=== PATIENT | male | born 1960 | race Caucasian/White ===

== ENCOUNTER 2016-10-30 23:48 | Emergency (ER) | payer BC, OTHER ==
[~2016-10-30] VITALS: Ht 182.9 cm; Wt 222.0 kg
[~2016-10-30 23:48] MED LIST: ALBUAER19 INH; ASPEC81 PO; BENA20TA14 PO; FLUT0.0529; FRS/40 PO; MELO15TA3 PO; POTA-335 PO
[2016-10-30 23:55] VITALS: TEMP 36.5; Ht 182.9 cm; Wt 222.0 kg
[2016-10-31] MEDS ORDERED: LIDO/EPINEPHRINE/SOD BICARB 20 ML VIAL INFIL ONE (00:04)
--- NOTE | 2016-10-31 00:10 | EMERGENCY ROOM VISIT NOTE ---
ED Visit Note First contact with patient: 23:59 CHIEF COMPLAINT: Right lower leg laceration HISTORY OF PRESENT ILLNESS: This 56-year-old patient presents to the emergency department with after cutting the right lower leg on a cat toy just prior to arrival. The bleeding has not stopped. Denies weakness or numbness of the extremity. patient has full range of motion of the extremity The patient rates the pain as mild and 2/10. The patient denies any other injuries. The patient' s tetanus shot is not up to date. REVIEW OF SYSTEMS: A 6 system review of systems was completed with positives and pertinent negatives listed in the HPI. ALLERGIES: None MEDICATIONS: Coumadin, reviewed PMH: Atrial fibrillation, diabetes, hypertension, hyperlipidemia SOCIAL HISTORY: No drug use PHYSICAL EXAM: Vital Signs: Reviewed Nurse's notes, vital signs stable. GENERAL : Pleasant male, in no acute distress, well developed, well nourished. SKIN: There is a 3 cm long laceration on the right lower leg. The edges gape apart with traction. There is no foreign material in the wound and it looks clean. There is bleeding. No deep structures such as tendons, bones, or significant blood vessels are seen in the base of the wound. Extension and flexion of the extremity is full and strong. Full range of motion of the extremity. Capillary refill less than 2 seconds. Normal sensation to light and sharp touch. EMERGENCY DEPARTMENT COURSE: I examined the patient. Using sterile technique the wound was cleansed with Betadine. 3 ml of 1% buffered lidocaine with epi was used to anesthetize the patient. The area was sterilely draped. Once the patient was anesthetized, the wound was copiously irrigated under pressure with sterile saline. The wound was explored and there were no deep structures injured. The laceration was repaired using 5 simple interrupted 4-0 nylon sutures. The patient tolerated the procedure well. Hemostasis was achieved. The area was cleaned with sterile saline and dressed with bacitracin ointment and bandage. The patient was given a tetanus booster. The patient was discharged home in good condition. As patient was cut by a cat toy he was placed on antibiotics Differential diagnosis includes laceration, tendon injury, vascular injury and other etiologies were considered. DIAGNOSIS: Right lower leg laceration DISCHARGE INSTRUCTIONS & TREATMENT: Keep wound clean and dry. Do not allow any crusting or dried blood to accumulate on sutures. If this occurs, use a 1:1 solution of hydrogen peroxide/water on a Q-tip to clean the wound. Use an antibiotic ointment for 3-4 days, then let wound dry. Suture removal in 10-12 days. Return sooner for any signs of infection (increasing redness, swelling, drainage). Ice and elevate for swelling and pain. Keep covered when in sun until sutures removed then SPF 50 or higher for one year. Vitamin E oil if desired two weeks after suture removal for reduction of scar. Wear pat wrap for compression over bandage with bacitracin and stay nonweightbearing on this leg until laceration has healed. Amoxicillin Clavulanate (Augmentin) 875mg: Take one pill twice daily for 10 days for your infection. All antibiotics can cause diarrhea. If this occurs and you feel worse or it does not resolve in 1-2 days follow up with your doctor or return to the Emergency Department as this could be signs of serious underlying problems. Any medication can cause an allergic reaction, stop the pills immediately and return to the ER for rash, hives, breathing difficulties, or swelling. Acetaminophen(Tylenol) may be used for fever or pain. Use 1000mg every six hours as needed. Avoid using more than 3000mg in a 24 hour period. Rest and drink plenty of fluids. Continue current medications. Return to the ER for severe pain, persistent fevers, spreading redness, or any worsening of your condition. Follow up with your primary physician within 2-3 days for a recheck of the current condition. Current/Historical Medications Scheduled Albuterol Inhaler (Ventolin Inhaler), 2 PUFFS INH PRN Amoxicillin & Pot Clavulanate (Augmentin 875-125 mg), 1 TAB PO BID Aspirin Enteric Coated (Ecotrin Or Generic *), 81 MG PO DAILY Benazepril (Lotensin), 40 MG PO QAM Furosemide (Lasix), 40 MG PO QAM Furosemide (Lasix), 20 MG PO NOON Meloxicam (Mobic), 15 MG PO QAM Potassium Chloride (Micro-K Ext Rel), 20 MEQ PO DAILY Miscellaneous Medications Fluticasone Propionate (Nasal) (Flonase) Allergies Coded Allergies: No Known Allergies (Verified Allergy, Mild, 10/24/07) Vital Signs Date Time Temp Pulse Resp B/P Pulse Ox O2 Delivery O2 Flow Rate FiO2 10/30/16 23:55 36.5 97 22 141/82 91 Room Air Medications Administered Medications (Trade) Dose Ordered Sig/Margo Route Start Time Stop Time Status Last Admin Dose Admin Lidocaine/ Epinephrine (Buffered Xylocaine/ Epinephrine 1% Inj) 20 ml STK-MED ONCE INFIL 10/31/16 00:04 10/31/16 00:07 DC 10/31/16 00:15 20 ML Diphtheria/ Pertussis/Tetanus Vacc (Adacel Inj) 0.5 ml ONCE ONCE IM. 10/31/16 00:15 10/31/16 00:16 DC 10/31/16 00:16 0.5 ML Amoxicillin/ Clavulanate Potassium (Augmentin 875MG Home Pack) 1 homepack UD ONCE PO 10/31/16 00:15 10/31/16 00:16 DC 10/31/16 00:14 1 HOMEPACK Departure Information Prescriptions Amoxicillin & Pot Clavulanate (Augmentin 875-125 mg) 1 Tab Tab 1 TAB PO BID for 9 Days, #18 TAB Prov: Tari Garsia ., AP 10/31/16 Referrals Jamey Koch M.D. (PCP) Patient Instructions [facility]
[2016-10-31] MEDS ORDERED: DIPHTHERIA/TETANUS/PERTUSSIS 0.5 ML SYR/VIAL IM. ONE (00:15)
[2016-10-31] MEDS ORDERED: AMOXICIL/CLAVU 875MG HOME PACK PO ONE (00:15)
[2016-10-31] MEDS ORDERED: AMOX875T PO (00:24)
[2016-10-31] MEDS ORDERED: ASPI81TA28 PO (00:27)
[2016-10-31] MEDS ORDERED: POTA10CA28 PO (00:28)
[2016-10-31] MEDS ORDERED: FLUT0.15 NAE (00:29)
[2016-10-31] MEDS ORDERED: MELO7.5T5 PO (00:29)
[2016-10-31] MEDS ORDERED: VNTHFA/IN INH (00:30)
[2016-10-31 00:48] VITALS: BP 127/78; PULSE 97; O2SAT 92
== END 2016-10-31 00:48 | disposition home or self-care (01) ==
LOC: C.EDB 23:49 → C.EDA 10-31 00:48
DX: S81.811A Laceration without foreign body, right lower leg, initial encounter (principal); W45.8XXA Other foreign body or object entering through skin, initial encounter; Z23 Encounter for immunization; I48.91 Unspecified atrial fibrillation; I10 Essential (primary) hypertension; E11.9 Type 2 diabetes mellitus without complications; E78.5 Hyperlipidemia, unspecified; Z79.82 Long term (current) use of aspirin; Z79.01 Long term (current) use of 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s; Z79.899 Other long term (current) drug therapy

== ENCOUNTER → 2017-10-16 | Day surgery (SDC) | payer OTHER ==
[2017-10-10 15:53] VITALS: Ht 182.9 cm; Wt 222.7 kg
--- NOTE | 2017-10-15 09:25 | History and Physical ---
History & Physical Date Oct 15, 2017. Chief Complaint Patient presents as a severe obesity 57year-old white male with complaints of ongoing pain attributed to his right hand he has documented carpal tunnel syndrome with positive EMG findings nonresponsive to conservative History of Present Illness The patient is a 57 year old male with complaints of carpal tunnel syndrome the documented EMG right upper extremity nonresponsive to conservative therapy including injections and bracing Additional History Hepatic Disease: No Endocrine Disorder: Yes Kidney Disease: No Hypertension: Yes Heart Disease: No Bleeding Tendencies: No Infectious Diseases: No Allergies Coded Allergies: No Known Allergies (Verified , 10/10/17) Home Medications Scheduled Aspirin (Aspirin Ec), 81 MG PO QAM Atorvastatin (Lipitor), 20 MG PO HS Benazepril (Lotensin), 40 MG PO QAM Furosemide (Lasix), 40 MG PO QAM Home O2 Therapy (Oxygen), 1 LITER NA HS Metoprolol Tartrate (Lopressor) (Lopressor), 50 MG PO QAM Omeprazole (Prilosec), 40 MG PO QAM Tramadol (Ultram), 100 MG PO BID Warfarin Sod (Jantoven), 7.5 MG PO 4XWK Warfarin Sodium (Warfarin Sodium), 0.5 TAB PO 3XWK Scheduled PRN Albuterol Hfa (Ventolin Hfa), 2 PUFFS INH DIRECTED PRN for SOB/Wheezing Physical Examination Skin: warm/dry, no rash Eyes: normal inspection, EOMI, sclerae normal ENT: normal ENT inspection, pharynx normal Head: normocephalic, atraumatic Neck: supple, no adenopathy, trachea midline Respiratory/Chest: lungs clear, normal breath sounds, no respiratory distress Cardiovascular: regular rate, rhythm, no edema, no murmur Abdomen / GI: normal bowel sounds, non tender Back: normal inspection Extremities: normal inspection, normal range of motion Neurologic/Psych: no motor/sensory deficits, alert, normal reflexes, oriented x 3 Diagnosis Patient presents as a 57-year-old white male severe carpal tunnel syndrome documented EMG Nourse wants to conservative therapy including bracing and injections patient's history of hypertension hypercholesterolemia irregular heart sleep apnea on CPAP machine as well as a history of diabetes Plan of Treatment Carpal tunnel decompression postoperative pain management antibiotics
[~2017-10-16] VITALS: Ht 182.9 cm; Wt 222.7 kg
[~2017-10-16] MED LIST changes: -ALBUAER19 INH; -ASPEC81 PO; +ASPI81TA28 PO; +ATOR-22 PO; +ATROPINE SULFATE 0.1 MG/ML 5ML SYR IV PRN; +BUPIVACAINE 0.5 % 5 MG/1 ML MPF 30ML VIAL ONE; +BUPIVACAINE/EPINEPHRINE 0.5% MPF 1:200,000 30 ML VIAL ONE; +DEXAMETHASONE SOD INJ 4 MG/ML VIAL ONE; +EpHEDrine SULFATE INJ 50 MG/ML AMP IV PRN; +FENTANYL CITRATE INJ 50 MCG/1 ML 2 ML VIAL IV PRN; +FENTANYL CITRATE INJ 50 MCG/1 ML 2 ML VIAL ONE; -FLUT0.0529; +HYDR-5688 PO; +HYDROCODONE/ACETAMIN 5/325MG TAB PO PRN; +KETAMINE HCL INJ 50 MG/ML 10 ML VIAL ONE; +LACTATED RINGER'S 1000ML 1,000 ML IV SCH; +LIDOCAINE HCL 2% 2 ML VIAL (20MG/ML) ONE; +LIDOCAINE HCL 2% LOCAL 50ML VIAL ONE; -MELO15TA3 PO; +METO50TA16 PO; +MIDAZOLAM HCL 1 MG/ML 2ML VIAL ONE; +ONDANSETRON INJ 2 MG/ML 2 ML VIAL IV PRN; +ONDANSETRON INJ 2 MG/ML 2 ML VIAL ONE; +OXGN; -POTA-335 PO; +PRLSR20 PO; +PROPOFOL IV EMULSION 10 MG/ML 20 ML VIAL IV ONE; +SODIUM CHLORIDE 0.9% 1000ML 1,000 ML IV SCH; +SUCCINYLCHOLINE CHLORIDE 20 MG/ML 10 ML VIAL IV ONE; +TRAM-10 PO; +VNTHFA/IN INH; +WARF-284 PO; +WARF7.5T4 PO
[2017-10-16 12:19] VITALS: BP 157/98; PULSE 109; TEMP 36.8; O2SAT 93
[2017-10-16 12:37] LABS: INR 1.1 (0.9-1.1); PTT PATIENT 25.7 SECONDS (21.0-31.0)
--- NOTE | 2017-10-16 12:59 | History & Physical Bridge Note ---
H&P Re-Evaluation Bridge Note: I have examined the patient, reviewed the History & Physical and in the interval since the performance of the History & Physical I have noted the following changes of clinical significance: No changes noted
--- NOTE | 2017-10-16 13:31 | Discharge Instructions ---
Discharge Instructions Date of Service Oct 16, 2017. Visit Reason for Visit: Right Wrist Carpal Tunnel Syndrome Discharge Discharge Diagnosis / Problem: right carpal tunnel release Discharge Goals Goal(s): Decrease discomfort, Improve function, Increase independence Activity Recommendations Activity Limitations: as noted below Lifting Limitations: no more than 5 pounds Anesthesia . Post Anesthesia Instructions: If you have had General Anesthesia or IV Sedation: * Do not drive today. * Resume driving when surgeon permits. * Do not make important decisions or sign legal documents today. * Call surgeon for: 1. Temperature elevations greater than 101 degrees F. 2. Uncontrollable pain. 3. Excessive bleeding. 4. Persistent nausea and vomiting. 5. Medication intolerance (nausea, vomiting or rash). * For nausea and vomiting use only clear liquids such as: tea, soda, bouillon until nausea subsides, then gradually increase diet as tolerated. * If you have any concerns or questions, call your surgeon's office. If physician is unavailable and it is an emergency, call 911 or go to the nearest emergency room. . Instructions / Follow-Up Instructions / Follow-Up The following are instructions to follow after minor hand surgery. ACTIVITY RECOMMENDATIONS: * Minimize activity until your first visit after surgery. * Return to activity is individualized. Most patients are able to return to everyday activities within 2 weeks. * DRIVING: Driving may be resumed when you feel you have adequate pain control and use of the hand. * BATHING: You may shower or sponge-bathe immediately after surgery. The dressing will need to be covered with a plastic bag or plastic wrap. Keep dressing covered and dry while showering. * Wash with regular soap and water. * Do not bathe (submerge the incision), soak, swim or use a hot tub until the incision is completely healed over with normal skin and the doctor has given the OK to proceed. * There is no need to apply any ointments, powders or salves to your incision. * Do not apply alcohol or hydrogen peroxide directly to the incision. Diluted peroxide (50:50 mixture with sterile saline) may be used to clean dried blood from around the incision area. WORK/SCHOOL: * You may return to sedentary work or school when you are feeling comfortable. This is usually 3-7 days after surgery. * Expect increased discomfort with increased activity. Continue to elevate and ice the hand as much as possible. DIET: * Resume previous diet. MEDICATIONS: * You will have a prescription for pain medication after surgery. Use the pain pills for severe pain and the anti-inflammatory for less severe pain. * Once the pain pills have run out, try to use the anti-inflammatory. * The pain medication may cause nausea, constipation and sleepiness. You should see how they affect you before driving or similar activity. * Take a stool softener like Colace or a stimulant like Senokot to prevent constipation. SPECIAL CARE INSTRUCTIONS: ICE: * Do not apply ice directly to the skin. * Use a thin dressing or stockinet between the skin and ice bag. The dressing in place after surgery will suffice. * Apply ice for 20-30 minutes and repeat every 2-4 hours. This is especially important for the first 3-7 days after surgery. * Once the pain improves, use ice as needed. ELEVATION: * Keep your hand elevated at or above the level of your heart as much as possible. * Expect some increased discomfort and swelling if you allow your hand to hang down for any length of time. DRESSING: * Always wash your hands prior to touching the incision area. * Once the stitches are removed, you may leave the wound open to air or cover with a thin bandage. * There is no need to apply any ointments, powders or salves to your incision. * Expect some bloody drainage for the first few days after surgery. * The initial dressing after surgery may become soaked with blood or fluid which is normal. You may reinforce your dressing with clean, dry gauze as needed. PROBLEMS/QUESTIONS: * If you have any problems such as severe pain, numbness, tingling or high fevers or if you have any questions, please contact the office at [phone]. * It is not uncommon to have some numbness and tingling after the surgery especially if you have had a nerve block done. This should gradually improve over the first 1- 2 days. If this persists longer or worsens then contact the office. FOLLOW UP VISIT: * If not already scheduled, please call the office at to schedule follow-up appointments for approximately 10-12 days. ACTIVITY RECOMMENDATIONS: * Avoid lifting anything heavier than a medium water glass until your first post operative visit. SPECIAL PRECAUTIONS: * If you notice increased drainage, fever over 101 degrees F. or severe, unremitting pain, call your physician/office at . * You may have been prescribed pain medication. If you experience nausea and/or skin rash, discontinue this medication and contact our office for an alternative medication. Diet Recommendations Recommended Home Diet: resume previous diet Pending Studies Studies pending at discharge: no Medical Emergencies . Who to Call and When: Medical Emergencies: If at any time you feel your situation is an emergency, please call 911 immediately. . Non-Emergent Contact Non-Emergency issues call your: Primary Care Provider, Surgeon . . "Provider Documentation" section prepared by Isaiah Guerrero. . [place] Drug Monitoring Program Search Results: patient reviewed within database, no issues identified
--- NOTE | 2017-10-16 13:44 | [facility] Post Operative Brief Note ---
Immediate Operative Summary Operative Date Oct 16, 2017. Pre-Operative Diagnosis Right Wrist Carpal Tunnel Syndrome Post-Operative Diagnosis Same as preop Procedure(s) Performed Right Wrist Carpal Tunnel Release Surgeon Dr. Davis Bowling Pin Setters Installer Surgeon(s) None Estimated Blood Loss 4 ml Findings Consistent with Post-Op Diagnosis Specimens None per Surgeon Drains None Anesthesia Type Local Complication(s) none Disposition Disposition: Recovery Room / PACU
--- NOTE | 2017-10-16 13:46 | [facility] Operative Report ---
Operative Report Operative Date Oct 16, 2017. Pre-Operative Diagnosis Right Wrist Carpal Tunnel Syndrome Post-Operative Diagnosis Same as preop Procedure(s) Performed Right Wrist Carpal Tunnel Release Surgeon Dr. Davis Human Anatomy Teacher Surgeon(s) None Estimated Blood Loss 4 ml Findings Hourglass deformity with compression median nerve at carpal canal positive EMG findings Specimens None per Surgeon Drains None Anesthesia Type Local Complication(s) none Disposition Recovery Room / PACU Indications Positive EMG findings demyelination and moderately severe carpal tunnel syndrome Description of Procedure After proper prepping draping the right upper extremity incision made in revision median thenar crease extending proximal to a [place] in the proximal wrist crease dissection carried through the palmar fascia down to the region of the transverse carpal ligament transverse carpal ligament was inspected special attention is paid to protect the recurrent motor branch all times of the transcarpal ligament was incised the incision both proximally and distally the nerve was completely decompressed was an hourglass deformity of the nerve in the nerve had some mild hyperemic changes and epidural lysis was performed loser as well as sterile saline solution meticulous hemostasis was obtained and maintained [place]ier irrigated with sterile saline solution injection of 10 mL of half percent plain Marcaine was placed in the wound was irrigated once further socially and skin was closed with 4-0 nylon a sterile compressive dressing was placed patient was taken recovery in stable condition operative report dictated by Ryan. I attest to the content of the Intraoperative Record and any orders documented therein. Any exceptions are noted below.
[2017-10-16 13:48] VITALS: BP 133/72; PULSE 100; TEMP 37.4; O2SAT 97
--- NOTE | 2017-10-16 13:48 | [facility] Operative Report ---
Operative Report Operative Date Oct 16, 2017. Pre-Operative Diagnosis Right Wrist Carpal Tunnel Syndrome Post-Operative Diagnosis Same as preop Procedure(s) Performed Right Wrist Carpal Tunnel Release Surgeon Dr. Davis Warp Bleaching Vat Tender Surgeon(s) None Estimated Blood Loss 4 ml Findings Positive EMG with hourglass deformity of median nerve Specimens None per Surgeon Drains None Anesthesia Type Local Complication(s) none Disposition Recovery Room / PACU Indications Positive EMG with hourglass deformity of median nerve Description of Procedure Patient presents under compression after proper prepping draping the right extremity incision made in revision the median thenar crease standing proximal Reese across the proximal wrist crease dissection carried down to the palmar fascia the region of the transverse carpal ligament transverse carpal we will was incised length incision nerve was decompressed both distal proximal subcutaneously subsequent nerve was completely decompressed in its entirety mild hourglass deformity was noted was some mild hyperemic changes the median nerve epineural lysis was also performed median nerve recurrent branch was protected and visualized all-time meticulouswas obtained and maintained was removed socialist sterile saline solution was injected with 10 mL of half percent plain Marcaine and wound was closed for allowing sterile compressive dressing was placed I attest to the content of the Intraoperative Record and any orders documented therein. Any exceptions are noted below.
[2017-10-16 14:18] VITALS: BP 163/90; PULSE 102; TEMP 37.5; O2SAT 96
--- NOTE | 2017-10-16 15:19 | Anesthesiology Progress Note ---
Anesthesia Post Op Note Date & Time Oct 16, 2017 at 15:19 Vital Signs Pain Intensity: 0 Vital Signs Past 12 Hours Date Time Temp Pulse Resp B/P (MAP) Pulse Ox O2 Delivery O2 Flow Rate FiO2 10/16/17 14:18 37.5 102 18 163/90 96 Room Air 10/16/17 13:48 37.4 100 18 133/72 97 Room Air 10/16/17 12:19 36.8 109 20 157/98 (117) 93 Room Air Notes Mental Status: alert / awake / arousable, participated in evaluation Pt Amnestic to Procedure: Yes Nausea / Vomiting: adequately controlled Pain: adequately controlled Airway Patency, RR, SpO2: stable & adequate BP & HR: stable & adequate Hydration State: stable & adequate Anesthetic Complications: no major complications apparent
== END | disposition home or self-care (01) ==
LOC: C.ACU 11:42
PROVIDERS: ATTEND Orthopaedic Surgery
DX: G56.01 Carpal tunnel syndrome, right upper limb (principal); I48.91 Unspecified atrial fibrillation; E11.9 Type 2 diabetes mellitus without complications; K21.9 Gastro-esophageal reflux disease without esophagitis; G47.33 Obstructive sleep apnea (adult) (pediatric); E66.01 Morbid (severe) obesity due to excess calories; Z68.44 Body mass index [BMI] 60.0-69.9, adult; Z79.82 Long term (current) use of aspirin

== ENCOUNTER 2022-11-11 12:21 | Inpatient (IN) ==
[2022-11-11] MEDS ORDERED: FUROSEMIDE 40 MG/4 ML VIAL IV ONE (13:09)
--- NOTE | 2022-11-11 13:11 | XRay Report ---
XR chest 1V portable HISTORY: shortness of breath COMPARISON: Chest 10/27/2012. FINDINGS: There are low lung volumes. The heart is enlarged. There is progressive interstitial/vascul ar thickening consistent with pulmonary edema. No new focal lung consolidations to suggest a pneumoni a. Suspect trace bilateral pleural effusions. IMPRESSION: Cardiomegaly with interval development of mild pulmonary edema. ACT 112: Negative or not required by law. Electronically signed by: Leonardo Anaya M.D. 11/11/2022 1:10 PM
--- NOTE | 2022-11-11 13:32 | Emergency Department Note ---
Impression & Plan Breathlessness, retirement (current) use of 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s, Pulmonary edema, Fluid overload, Atrial fibrillation ED Provider Note Provider: Td Lee MD DATE OF SERVICE: 11/11/2022 CHIEF COMPLAINT: Shortness of breath HISTORY OF PRESENT ILLNESS: Patient is a 62-year-old gentleman history of atrial fibrillation on warfarin presenting here today stating over the past 2 weeks he developed shortness of breath. States he is noticing significant increase in swelling of his lower legs during this time. Had some sinus congestion URI symptoms and his doctor prescribed a course of antibiotics. Use some [id number] Coricidin according to his as well and has had some improvement of his sinus congestion. States over his breathing still continues to be bad. States particularly even short ambulation as he gets very short of breath and noted today that his pulse ox dropped to the 70s after walking back from the bathroom. States he is uses CPAP at night but does not use oxygen regularly. Did borrow some oxygen from his son and use this with his CPAP last night and this was helpful. Given continued worsening breathing issues came here for evaluation. Denies trauma. Denies a phan pain or GI symptoms. Denies significant chest discomfort. PAST MEDICAL HISTORY: As noted above MEDICATIONS: Reviewed home medications SOCIAL HISTORY: Non-smoker, lives at home with PHYSICAL EXAM: GENERAL: alert and oriented in no acute distress on stretcher Head: normocephalic and atraumatic EYES: No injection, discharge or icterus. PERRL, EOMI. NECK: Trachea midline. Supple. ENT: Mucous membranes pink and moist. LUNGS: Airway patent. No retractions. Breath sounds diminished generally HEART: Regular rate and rhythm. No chest wall tenderness ABDOMEN: Soft and non-tender, without guarding or rebound with a large slightly left-sided pannus. SKIN: Acyanotic, warm, dry with some stasis changes lower extremities with some scaling and plaques across the abdominal pannus prickly on the left side. Not significantly erythematous. EXTREMITIES: 3+ edema of the lower extremities without weeping noted with some chronic stasis changes. NEUROLOGICAL: No focal deficits. No aphasia. No facial droop or slurred speech. Ambulatory with significant assistance and canes, gets short of breath with this. EK bpm atrial fibrillation. No acute ST segment elevation or depression with a QTc of 469. CONTINUOUS CARDIAC MONITORING: was ordered and showed a heart rate of 70s-90s bpm in atrial fibrillation Patient's laboratory studies and imaging reviewed. Differential includes Reactive airway disease, pneumonia, pneumothorax, COPD, CHF, infections, cardiac ischemia, pulmonary embolism, musculoskeletal, gastrointestinal, as well as other pathologies. IMPRESSION/MEDICAL DECISION MAKING: Patient with leg edema and finding concerning for pulmonary edema on x-ray question CHF. In rate controlled A-fib and has history. Anticoagulated with warfarin lower suspicion for VTE/PE. EKG and troponin sent but I have a lower suspicion for acute ACS. Seems like again more of a fluid overloaded situation. COVID test and flu test sent. Basic labs obtained. We will give empirically some IV Lasix is not currently on diuretics. Very borderline hypoxia even at rest here and with ambulation again desatted earlier. Feel at this time the patient require further care here at the hospital. Patient updated. May require Espinoza given the diuresis expectation and his difficulty with ambulation and standing due to fluid overload, habitus, and breathing. Hospitalist consulted. Negative COVID and flu. DIAGNOSIS: Shortness of breath, pulmonary edema, atrial fibrillation, long-term anticoagulation DISPOSITION: Hospitalist will evaluate Patient was agreeable with this plan. Past Med/Surg History Medical History (Updated 11/11/22 @ 14:41 by MARIBEL Ardon) DM2 (diabetes mellitus, type 2) GERD (gastroesophageal reflux disease) HLD (hyperlipidemia) HTN (hypertension) Morbid obesity Shortness of breath Social History Smoking Status: Never smoker Preferred Language: Fijian Feels Safe at Home: Yes Allergies Allergies Allergy/AdvReac Type Severity Reaction Status Date / Time No Known Allergies Allergy Mild Verified 11/11/22 14:55 Home Meds Home Medications Medication Instructions Recorded Confirmed albuterol sulfate 90 mcg/actuation 2 puff inhalation QID 11/11/22 11/11/22 aerosol inhaler aspirin 81 mg capsule 81 mg PO QAM 11/11/22 11/11/22 atorvastatin 40 mg tablet 40 mg PO HS 11/11/22 11/11/22 benazepril 40 mg tablet 40 mg PO QAM 11/11/22 11/11/22 metoprolol tartrate 50 mg tablet 50 mg PO BID 11/11/22 11/11/22 omeprazole 40 mg capsule,delayed 40 mg PO DAILYBB 11/11/22 11/11/22 release tramadol 200 mg tablet,extended 200 mg PO HS 11/11/22 11/11/22 release 24 hr warfarin 7.5 mg tablet 3.75 mg PO 4XWK 11/11/22 11/11/22 warfarin 7.5 mg tablet 7.5 mg PO 3XWK 11/11/22 11/11/22 Results & Data (ED) Vital Signs Vital Signs - 24 hr 11/11/22 12:28 11/11/22 12:43 11/11/22 13:07 Temperature 36.6 C Temperature Source Temporal Artery Scan Pulse Rate 81 84 Pulse Rate from SpO2 Sensor Respiratory Rate 20 Respiratory Effort / Characteristics Non-Labored Non-Labored Spontaneous Respiratory Depth Normal Normal Respiratory Pattern Regular Blood Pressure 180/91 H Blood Pressure Mean 120 Blood Pressure Position Sitting Pulse Oximetry 90 Oxygen Delivery Method Room Air Room Air Oxygen Flow Rate Sepsis Recent Fever Within 48 Hours No Sepsis New/Unexplained Change in Mental Status No Sepsis Action Taken by Nursing No Action Required 11/11/22 13:06 11/11/22 13:10 11/11/22 13:20 Temperature Temperature Source Pulse Rate 77 78 74 Pulse Rate from SpO2 Sensor 83 76 Respiratory Rate 30 H 24 20 Respiratory Effort / Characteristics Respiratory Depth Respiratory Pattern Blood Pressure 144/101 H Blood Pressure Mean 115 Blood Pressure Position Pulse Oximetry 91 89 L Oxygen Delivery Method Room Air Room Air Oxygen Flow Rate Sepsis Recent Fever Within 48 Hours Sepsis New/Unexplained Change in Mental Status Sepsis Action Taken by Nursing 11/11/22 13:30 11/11/22 13:37 11/11/22 13:37 Temperature Temperature Source Pulse Rate 82 78 Pulse Rate from SpO2 Sensor 82 85 Respiratory Rate 19 25 H Respiratory Effort / Characteristics Respiratory Depth Respiratory Pattern Blood Pressure 155/106 H Blood Pressure Mean 122 Blood Pressure Position Pulse Oximetry 94 94 Oxygen Delivery Method Nasal Cannula Nasal Cannula Oxygen Flow Rate 2 2 Sepsis Recent Fever Within 48 Hours Sepsis New/Unexplained Change in Mental Status Sepsis Action Taken by Nursing 11/11/22 13:40 11/11/22 13:50 Temperature Temperature Source Pulse Rate 80 92 H Pulse Rate from SpO2 Sensor 79 90 Respiratory Rate 21 21 Respiratory Effort / Characteristics Respiratory Depth Respiratory Pattern Blood Pressure Blood Pressure Mean Blood Pressure Position Pulse Oximetry 95 94 Oxygen Delivery Method Nasal Cannula Nasal Cannula Oxygen Flow Rate 2 2 Sepsis Recent Fever Within 48 Hours Sepsis New/Unexplained Change in Mental Status Sepsis Action Taken by Nursing Laboratory Data 11/11/22 13:17 11/11/22 13:17 Lab Results 11/11/22 11/11/22 11/11/22 Range/Units 13:17 13:17 13:17 WBC 9.13 (4.8-10.8) K/ul RBC 4.45 L (4.70-6.10) M/uL Hgb 13.7 L (14.0-18.0) g/dl Hct 43.1 (42.0-52.0) % MCV 96.9 (80.0-100.0) fL MCH 30.8 (25.0-34.0) pg MCHC 31.8 L (32.0-36.0) g/dL RDW Std Deviation 45.1 (36.4-46.3) fL RDW Coeff of Zoila 12.7 (11.5-14.5) % Plt Count 275 (130-400) K/uL MPV 10.6 (9.4-12.4) fL Immature Gran % (Auto) 0.5 % Neut % (Auto) 77.2 % Lymph % (Auto) 10.8 % Rincon % (Auto) 8.5 % Eos % (Auto) 2.5 % Baso % (Auto) 0.5 % Neut # (Auto) 7.03 H (1.40-6.50) K/uL Lymph # (Auto) 0.99 L (1.2-3.4) K/uL Rincon # (Auto) 0.78 H (0.11-0.59) K/uL Eos # (Auto) 0.23 (0-0.50) K/uL Baso # (Auto) 0.05 (0-0.2) K/uL Immature Gran # (Auto) 0.05 (0.01-0.20) K/uL PT (9.0-12.0) Seconds INR (0.9-1.1) APTT (21.0-31.0) Seconds PTT Ratio Sodium 139 (136-145) mmol/L Potassium 4.5 (3.5-5.1) mmol/L Chloride 102 (98-107) mmol/L Carbon Dioxide 29 (21-32) mmol/L Anion Gap 8 (3-11) BUN 16 (6-23) mg/dl Creatinine 0.97 (0.6-1.4) mg/dl Est Cr Clr Drug Dosing 154.5 ml/min Est GFR ( Amer) 97.9 ml/min Est GFR (Non-Af Amer) 84.5 ml/min BUN/Creatinine Ratio 16.5 (10-20) Glucose 114 H (70-99(Fasting)) mg/dl Calcium 8.6 (8.5-10.1) mg/dl Magnesium 1.4 L (1.7-2.4) mg/dl Total Bilirubin 0.7 (0.2-1.0) mg/dl AST 26 (13-39) U/L ALT 16 (7-52) U/L Alkaline Phosphatase 125 H (34-104) U/L Troponin I High Sens 6.7 (0-20) pg/ml B-Natriuretic Peptide 132 H (0-100) pg/ml Total Protein 7.6 (6.0-8.3) gm/dl Albumin 3.3 L (3.4-5.0) gm/dl Globulin 4.3 H (2.5-4.0) gm/dl Albumin/Globulin Ratio 0.8 L (0.9-2) Urine Color Urine Appearance (Clear) Urine pH (4.5-7.5) Ur Specific Crawford (1.000-1.030) Urine Protein (Negative) Urine Glucose (UA) (Negative) Urine Ketones (Negative) Urine Blood (Negative) Urine Nitrite (Negative) Urine Bilirubin (Negative) Urine Urobilinogen (Negative) Ur Leukocyte Esterase (Negative) Urine WBC (Auto) (0-5) /hpf Urine RBC (Auto) (0-4) /hpf U Hyaline Cast (Auto) (0-5) /lpf U Epithel Cells (Auto) (0-5) /lpf Urine Bacteria (Auto) (Negative) SARS-CoV-2 (PCR) (Negative) Influenza Type A (PCR) (Neg) Influenza Type B (PCR) (Neg) RSV (RT-PCR) (Neg) 11/11/22 11/11/22 11/11/22 Range/Units 13:17 13:17 15:19 WBC (4.8-10.8) K/ul RBC (4.70-6.10) M/uL Hgb (14.0-18.0) g/dl Hct (42.0-52.0) % MCV (80.0-100.0) fL MCH (25.0-34.0) pg MCHC (32.0-36.0) g/dL RDW Std Deviation (36.4-46.3) fL RDW Coeff of Zoila (11.5-14.5) % Plt Count (130-400) K/uL MPV (9.4-12.4) fL Immature Gran % (Auto) % Neut % (Auto) % Lymph % (Auto) % Rincon % (Auto) % Eos % (Auto) % Baso % (Auto) % Neut # (Auto) (1.40-6.50) K/uL Lymph # (Auto) (1.2-3.4) K/uL Rincon # (Auto) (0.11-0.59) K/uL Eos # (Auto) (0-0.50) K/uL Baso # (Auto) (0-0.2) K/uL Immature Gran # (Auto) (0.01-0.20) K/uL PT 26.3 H (9.0-12.0) Seconds INR 2.6 H (0.9-1.1) APTT 39.6 H (21.0-31.0) Seconds PTT Ratio 1.4 Sodium (136-145) mmol/L Potassium (3.5-5.1) mmol/L Chloride (98-107) mmol/L Carbon Dioxide (21-32) mmol/L Anion Gap (3-11) BUN (6-23) mg/dl Creatinine (0.6-1.4) mg/dl Est Cr Clr Drug Dosing ml/min Est GFR ( Amer) ml/min Est GFR (Non-Af Amer) ml/min BUN/Creatinine Ratio (10-20) Glucose (70-99(Fasting)) mg/dl Calcium (8.5-10.1) mg/dl Magnesium (1.7-2.4) mg/dl Total Bilirubin (0.2-1.0) mg/dl AST (13-39) U/L ALT (7-52) U/L Alkaline Phosphatase (34-104) U/L Troponin I High Sens (0-20) pg/ml B-Natriuretic Peptide (0-100) pg/ml Total Protein (6.0-8.3) gm/dl Albumin (3.4-5.0) gm/dl Globulin (2.5-4.0) gm/dl Albumin/Globulin Ratio (0.9-2) Urine Color Yellow Urine Appearance Clear (Clear) Urine pH 5.0 (4.5-7.5) Ur Specific Crawford 1.007 (1.000-1.030) Urine Protein Negative (Negative) Urine Glucose (UA) Negative (Negative) Urine Ketones Negative (Negative) Urine Blood 3+ H (Negative) Urine Nitrite Negative (Negative) Urine Bilirubin Negative (Negative) Urine Urobilinogen Negative (Negative) Ur Leukocyte Esterase Negative (Negative) Urine WBC (Auto) 1-5 (0-5) /hpf Urine RBC (Auto) 0-4 (0-4) /hpf U Hyaline Cast (Auto) 1-5 (0-5) /lpf U Epithel Cells (Auto) 5-10 H (0-5) /lpf Urine Bacteria (Auto) Negative (Negative) SARS-CoV-2 (PCR) NEGATIVE (Negative) Influenza Type A (PCR) Negative (Neg) Influenza Type B (PCR) Negative (Neg) RSV (RT-PCR) Negative (Neg) Administered Medications Discontinued Medications Furosemide (Furosemide 40 Mg/4 Ml Vial) 40 mg IV ONE ONE Stop: 11/11/22 13:10 Last Admin: 11/11/22 13:37 Dose: 40 mg Documented By: [id number] Imaging Data Radiologist's Impression: Chest X-Ray 11/11/22 12:43 XR chest 1V portable HISTORY: shortness of breath COMPARISON: Chest 10/27/2012. FINDINGS: There are low lung volumes. The heart is enlarged. There is progressive interstitial/vascular thickening consistent with pulmonary edema. No new focal lung consolidations to suggest a pneumonia. Suspect trace bilateral pleural effusions. IMPRESSION: Cardiomegaly with interval development of mild pulmonary edema. ACT 112: Negative or not required by law. Electronically signed by: Leonardo Anaya M.D. 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, Pulmonary edema, Fluid overload, Atrial fibrillation Patient Disposition: Being Evaluated by Hospitalist Condition: Fair Discharge Instructions Interventions: ED Discharge Assessment Last Done: 11/11/22 16:00 Forms Stand Alone Forms: My [employer] Prescriptions Prescriptions: No Action atorvastatin 40 mg tablet 40 mg PO HS benazepril 40 mg tablet 40 mg PO QAM albuterol sulfate 90 mcg/actuation HFA aerosol inhaler 2 puff INHALATION QID aspirin 81 mg Capsule 81 mg PO QAM warfarin 7.5 mg tablet 7.5 mg PO 3XWK Rx Instructions: Sat,Sat,Fri warfarin 7.5 mg tablet 3.75 mg PO 4XWK Rx Instructions: ,,SAT,SUN omeprazole 40 mg capsule,delayed release(DR/EC) 40 mg PO DAILYBB metoprolol tartrate 50 mg tablet 50 mg PO BID tramadol 200 mg tablet extended release 24 hr 200 mg PO HS Referrals Referrals: Jamey Koch MD [Primary Care Provider] - Pulmonary edema Qualifiers: Chronicity: acute Qualified Code(s): J81.0 - Acute pulmonary edema Fluid overload Qualifiers: Hypervolemia type: unspecified Qualified Code(s): E87.70 - Fluid overload, unspecified Atrial fibrillation Qualifiers: Atrial fibrillation type: unspecified chronic Qualified Code(s): I48.20 - Chronic atrial fibrillation, unspecified
[2022-11-11 13:41] LABS: Basophils # (auto) 0.05 K/uL (0-0.2); Basophils % (auto) 0.5 %; Eosinophils # (auto) 0.23 K/uL (0-0.50); Eosinophils % (auto) 2.5 %; Hematocrit (blood only) 43.1 % (42.0-52.0); Hemoglobin 13.7 g/dl (14.0-18.0); Immature Granulocytes # (auto) 0.05 K/uL (0.01-0.20); Immature Granulocytes % (auto) 0.5 %; Lymphocytes # (auto) 0.99 K/uL (1.2-3.4); Lymphocytes % (auto) 10.8 %; Mean Corpuscular Hemoglobin 30.8 pg (25.0-34.0); Mean Corpuscular Hgb Conc 31.8 g/dL (32.0-36.0); Mean Corpuscular Volume 96.9 fL (80.0-100.0); Mean Platelet Volume 10.6 fL (9.4-12.4); Monocytes # (auto) 0.78 K/uL (0.11-0.59); Monocytes % (auto) 8.5 %; Neutrophils # (auto) 7.03 K/uL (1.40-6.50); Neutrophils % (auto) 77.2 %; Platelet Count 275 K/uL (130-400); RDW Coefficient of Variation 12.7 % (11.5-14.5); RDW Standard Deviation 45.1 fL (36.4-46.3); Red Blood Count 4.45 M/uL (4.70-6.10); White Blood Count 9.13 K/ul (4.8-10.8)
[2022-11-11 13:55] LABS: Albumin Globulin Ratio 0.8 (0.9-2); Albumin Level 3.3 gm/dl (3.4-5.0); BUN Creatinine Ratio 16.5 (10-20); Bilirubin,Total 0.7 mg/dl (0.2-1.0); Calcium 8.6 mg/dl (8.5-10.1); Creatinine Clr Calc Pharmacy 154.5 ml/min; Est GFR (African American) 97.9 ml/min; Est GFR (Non-African American) 84.5 ml/min; Globulin 4.3 gm/dl (2.5-4.0); Magnesium 1.4 mg/dl (1.7-2.4); Potassium 4.5 mmol/L (3.5-5.1); Total Protein 7.6 gm/dl (6.0-8.3)
[2022-11-11 14:02] LABS: Troponin I High Sensitivity 6.7 pg/ml (0-20)
[2022-11-11 14:10] LABS: INR 2.6 (0.9-1.1); Partial Thromboplastin Ratio 1.4; Partial Thromboplastin Time 39.6 Seconds (21.0-31.0); Prothrombin Time 26.3 Seconds (9.0-12.0)
[2022-11-11 14:18] LABS: Influenza A virus by PCR Negative (Neg); Influenza B virus by PCR Negative (Neg); RSV by PCR Negative (Neg); SARS CoV2 RNA(COVID-19) Ceph NEGATIVE (Negative)
[2022-11-11] MEDS ORDERED: MAGNESIUM HYDROXIDE SUSP 30 ML UDC PO PRN (14:32)
[2022-11-11] MEDS ORDERED: ALUMINUM/MAGNESIUM SUSP 30 ML UDC PO PRN (14:32)
[2022-11-11] MEDS ORDERED: POLYETHYLENE (MIRALAX) 17 GM PACK PO PRN (14:32)
--- NOTE | 2022-11-11 14:42 | History & Physical Report ---
Date of Service November 11, 2022 Assessment & Plan (1) Atrial fibrillation: (2) Pulmonary edema: (3) Shortness of breath: (4) HTN (hypertension): (5) HLD (hyperlipidemia): (6) GERD (gastroesophageal reflux disease): (7) DM2 (diabetes mellitus, type 2): (8) Morbid obesity: Plan 62 year old Male with SOB; possible heart failure component. Not taking any home diuretics for past 1.5 years. BNP 132. Repeat ECHO pending; last one 2016. ROHIT and morbid obesity. Acute respiratory failure: Shortness of breath: -Not on any diuretics -B/L LE swelling; with CXR findings and bilateral LE swelling, suspect a component of heart failure; do not suspect DVT as therapeutic on Coumadin -BNP 132 -Received Lasix 40 mg in ED; will start Lasix 20 mg IV daily -Espinoza inserted for adequate I/O -Fluid restriction 2200mL -ECHO pending; last ECHO 2016 without EF documented. No overt abnormalities. -Cardiology consultation pending Hypomagnesemia: -Mg+ 1.4; Administer 3 G Mg+ and recheck in AM -No ectopy on ECG Chronic Atrial fibrillation: -therapeutic on Coumadin -INR range 2-3; INR today 2.6 -Recheck INR in AM; no falls or reasons to hold DM2: -Not on any antidiabetic medications -A1C 03/06/22: 6.3; will recheck here. -FSBS ACHS SSI ordered and glycemic consultation ROHIT: -Morbid obesity -Wears CPAP at home -PT/OT HTN: - Takes Metoprolol; continue HLD: -Takes Simvastatin; continue -Lipid panel 02/2022: T, HDL 36, LDL 81 -Recheck lipid panel GERD: -Takes Omeprazole; continue Disposition: PCP: Dr. Koch CODE STATUS: Full code VTE prophylaxis: Therapeutic on Coumadin I spent a total of 87 minutes coordinating, documenting, and providing care for this patient excluding time spent in the performance of separately billed services. All of the aforementioned completed while collaborating with the assigned attending physician for a full treatment plan. Please see their addendum for further details. History of Present Illness Chief Complaint: SOB Primary Care Provider: Jamey Koch MD Mr. Curry is a 62-year-old male who presented to the ED today with shortness of breath and a persistent cough along with lower extremity swelling. He was given Amoxicillin as an outpatient and completed it last Saturday. He would feel short of breath just ambulating to the bathroom. When he sits down, he does desaturate based on his home SPO2 monitoring system ranging 84-92%. Patient reports that he has been drinking water at home lately "two 16 oz bottles per day". He does not follow a heart healthy diet. He reports that he did take diuretics up until the past 1.5 years. He noted the increased lower extremity swelling over the past couple of days. He does not check his weight at home. Chest x-ray consistent with mild pulmonary edema. BNP mildly elevated at 132 and no known documented heart failure. Chest x-ray findings and bilateral lower extremity swelling suspect a component of heart failure; do not suspect DVT is therapeutic on Coumadin as well. No personal medicla history of CVA or AMI. Father from AMI and also had a CVA. Last ECHO 2016 without detailed findings. No diastolic dysfunction. Per , pt does perform IADL's. He does use two canes to assist with ambulation. Patient denies tobacco use, alcohol use, or recreational drug use. In the room, the patient just returned from the bathroom and was audibly short of breath, SPO2 82-84%. Additional past medical history includes atrial fibrillation (on Coumadin), ROHIT, HTN, HLD, obesity, DM 2, and GERD. Patient will be admitted for further evaluation and management. Please see A/P for further details. Allergies Allergy/AdvReac Type Severity Reaction Status Date / Time No Known Allergies Allergy Mild Verified 11/11/22 14:55 Home Medications Medication Instructions Recorded Confirmed Type albuterol sulfate 90 mcg/actuation 2 puff inhalation QID 11/11/22 11/11/22 History aerosol inhaler aspirin 81 mg capsule 81 mg PO QAM 11/11/22 11/11/22 History atorvastatin 40 mg tablet 40 mg PO HS 11/11/22 11/11/22 History benazepril 40 mg tablet 40 mg PO QAM 11/11/22 11/11/22 History metoprolol tartrate 50 mg tablet 50 mg PO BID 11/11/22 11/11/22 History omeprazole 40 mg capsule,delayed 40 mg PO DAILYBB 11/11/22 11/11/22 History release tramadol 200 mg tablet,extended 200 mg PO HS 11/11/22 11/11/22 History release 24 hr warfarin 7.5 mg tablet 3.75 mg PO 4XWK 11/11/22 11/11/22 History warfarin 7.5 mg tablet 7.5 mg PO 3XWK 11/11/22 11/11/22 History Past Med/Surg History Medical History (Updated 11/11/22 @ 14:41 by MARIBEL Ardon) DM2 (diabetes mellitus, type 2) GERD (gastroesophageal reflux disease) HLD (hyperlipidemia) HTN (hypertension) Morbid obesity Shortness of breath Social History Smoking Status: Never smoker Preferred Language: Wolof Feels Safe at Home: Yes Review of Systems Review of Systems: Neuro: (-) Falls, trauma, slurred speech HEENT: (-) [place], dizziness, dysphagia, visual or auditory changes CV: (-) CP, palpitations, swelling Resp: (-) SOB GI: (-) appetite changes, N/V/D, bowel changes : (-) urinary changes Skin: (-) rashes Psych: (-) anxiety, depression Physical Exam Physical Exam: See Dr. Valencia's addendum for details physical examination Results & Data Results & Data Vital Signs (Past 12 Hours) Vital Signs Temp Pulse Resp BP Pulse Ox O2 Del Method O2 Flow Rate 11/11/22 13:50 92 H 21 94 Nasal Cannula 2 11/11/22 13:40 80 21 95 Nasal Cannula 2 11/11/22 13:37 78 25 H 94 Nasal Cannula 2 11/11/22 13:37 155/106 H 11/11/22 13:30 82 19 94 Nasal Cannula 2 11/11/22 13:20 74 20 89 L Room Air 11/11/22 13:10 78 24 11/11/22 13:06 77 30 H 144/101 H 91 Room Air 11/11/22 13:07 84 11/11/22 12:43 Room Air 11/11/22 12:28 36.6 C 81 20 180/91 H 90 Room Air Laboratory Results Short CBC 11/11/22 Range/Units 13:17 WBC 9.13 (4.8-10.8) K/ul Hgb 13.7 L (14.0-18.0) g/dl Hct 43.1 (42.0-52.0) % Plt Count 275 (130-400) K/uL BMP 11/11/22 13:17 Sodium 139 Potassium 4.5 Chloride 102 Carbon Dioxide 29 BUN 16 Creatinine 0.97 Glucose 114 H Calcium 8.6 Liver Function 11/11/22 Range/Units 13:17 Total Bilirubin 0.7 (0.2-1.0) mg/dl AST 26 (13-39) U/L ALT 16 (7-52) U/L Alkaline Phosphatase 125 H (34-104) U/L Albumin 3.3 L (3.4-5.0) gm/dl Diagnostic Findings Chest X-Ray 11/11/22 12:43 XR chest 1V portable HISTORY: shortness of breath COMPARISON: Chest 10/27/2012. FINDINGS: There are low lung volumes. The heart is enlarged. There is progressive interstitial/vascular thickening consistent with pulmonary edema. No new focal lung consolidations to suggest a pneumonia. Suspect trace bilateral pleural effusions. IMPRESSION: Cardiomegaly with interval development of mild pulmonary edema. ACT 112: Negative or not required by law. Electronically signed by: Leonardo Anaya M.D. 11/11/2022 1:10 PM Code Status & VTE Plan Code Status Full Code in the event of cardiac or respiratory arrest VTE Prophylaxis Plan VTE Prophylaxis will be ordered: Yes Supervising Physician Co-Signing Physician Notes 62-year-old male with PMH of SLE, T2DM, ROHIT on CPAP, A-fib on Coumadin, HTN, morbid obesity presented to the ED 11/11 with complaint of worsening shortness of breath and lower extremity swelling since last 2 to 3 days prior to arrival. 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 He denies any ne w fever or chills or myalgia or increasing cough. He reports that he does not follow heart healthy diet, and has increased salty food/chips intake. But he does report that his water intake is modest which he refers to as " two 16 ounces bottles a day of water". He reports SOB w/ minimal exertion currently. Patient denies any smoking tobacco/use of alcohol or recreational drugs. Is full code. WBC looks fairly WNL, INR 2.6/therapeutic, BMP and electrolytes fairly WNL except for magnesium 1.4, replete magnesium with 3 g IV. BNP elevated at 132. CXR with pulmonary edema. EKG w/ Afib w/ controlled rate. Status post IV Lasix 40 mg at ED, will continue with 20 Mg IV Lasix daily [last time patient used any water pill was almost 1-1/2 years ago], fluid restriction of 2 L/day. Cardiology consult. Echo. Outpatient echo without information on ejection fraction. Appears acute hypoxic resp failure (no home O2 req currently) likely 2/2 Acute CHF. Follow up on ECHO. c/w home warfarin, monitor pt/inr. On examination: GENERAL: Alert and oriented x3. NAD, on 4L NC O2, Morbidly obese. HEENT: No pallor, no icterus. Pupils equal, round and reactive to light. Oral mucosa moist. NECK: No JVD, no neck masses. HEART: S1 and S2 heard. Regular rate and rhythm. No murmur, no gallop. RESPIRATORY SYSTEM: Normal AP diameter. No accessory muscle use. No wheezing, b/b crackles.Decreased breath sounds overall ABDOMEN: Soft, bowel sounds present, nontender, no distention. Lt abdomen w/ chronically indurated and raised areas w/ dry scales and mild surrounding erythema but no erythema or tenderness withing the raised/chronic changes area. CENTRAL NERVOUS SYSTEM: No facial droop. Speech is clear. Obeys simple commands. Moves extremities. EXTREMITIES:1 to 2+ BLE and pedal edema. No erythema seen. I have seen and examined the patient and have discussed the case with the provider above. I agree with the assessment and plan as stated. (1) Atrial fibrillation Atrial fibrillation type: unspecified chronic Qualified Code(s): I48.20 - Chronic atrial fibrillation, unspecified (2) Pulmonary edema Chronicity: acute Qualified Code(s): J81.0 - Acute pulmonary edema
[2022-11-11] MEDS ORDERED: MAGNESIUM SULFATE / D5W 1 GM/100 ML BAG IV ONE (14:45)
[2022-11-11 15:54] LABS: Appearance Urine Clear (Clear); Bacteria Urine Automated Negative (Negative); Bilirubin Urine Negative (Negative); Blood Urine 3+ (Negative); Color Urine Yellow; Glucose Urine UA Negative (Negative); Ketones Urine Negative (Negative); Leukocyte Esterase Urine Negative (Negative); Nitrite Urine Negative (Negative); Protein Urine Negative (Negative); RBC Urine Automated 0-4 /hpf (0-4); Specific Gravity Urine 1.007 (1.000-1.030); Urobilinogen Urine Negative (Negative)
[2022-11-11] MEDS ORDERED: CARBOHYDRATES FOR HYPOGLYCEMIA PO PRN (17:17)
[2022-11-11] MEDS ORDERED: PHARMACY GLYCEMIC MGMT CONSULT PRN (17:17)
[2022-11-11] MEDS ORDERED: GLUCOSE 10 TAB/TUBE PO PRN (17:17)
[2022-11-11] MEDS ORDERED: GLUCOSE 40% GEL 15 GM TUBE PO PRN (17:17)
[2022-11-11] MEDS ORDERED: DEXTROSE 50% 50 ML SYRINGE IV PRN (17:17)
[2022-11-11] MEDS ORDERED: GLUCAGON FOR INJ 1 MG VIAL SQ PRN (17:17)
[2022-11-11] MEDS: WARFARIN SOD 1.25 MG TAB PO SCH (17:28)
[2022-11-11] MEDS ORDERED: LABETALOL HCL IV 5 MG/ML 20ML IV PRN (17:29)
[2022-11-11] MEDS: ACETAMINOPHEN 325 MG TAB PO PRN (17:46)
[2022-11-11] MEDS ORDERED: FLUARIX QUADRIVALENT 0.5 ML SYR IM ONE (18:03)
[2022-11-11] MEDS: MAGNESIUM SULFATE / D5W 1 GM/100 ML BAG IV SCH ×2 (19:20→21:25)
[2022-11-11] MEDS: ATORVASTATIN 40 MG TAB PO SCH (20:50)
[2022-11-11] MEDS: METOPROLOL TARTRATE 50 MG TAB PO SCH (20:50)
[2022-11-11] MEDS ORDERED: LANTUS PER UNIT CHARGE SQ SCH (21:00)
[2022-11-11] MEDS ORDERED: INSULIN ASPART PER UNIT CHARGE SC SCH (21:00)
[2022-11-11] MEDS: TRAMADOL 200 MG PO SCH (22:53)
[2022-11-12] MEDS: PANTOprazole 40 MG TAB PO SCH (06:08)
[2022-11-12 06:48] LABS: Hematocrit (blood only) 41.7 % (42.0-52.0); Hemoglobin 13.4 g/dl (14.0-18.0); Mean Corpuscular Hemoglobin 30.9 pg (25.0-34.0); Mean Corpuscular Hgb Conc 32.1 g/dL (32.0-36.0); Mean Corpuscular Volume 96.3 fL (80.0-100.0); Mean Platelet Volume 10.8 fL (9.4-12.4); Platelet Count 284 K/uL (130-400); RDW Coefficient of Variation 12.5 % (11.5-14.5); RDW Standard Deviation 44.7 fL (36.4-46.3); Red Blood Count 4.33 M/uL (4.70-6.10); White Blood Count 10.77 K/ul (4.8-10.8)
[2022-11-12 07:00] LABS: BUN Creatinine Ratio 15.8 (10-20); Calcium 8.5 mg/dl (8.5-10.1); Creatinine Clr Calc Pharmacy 128.5 ml/min; Est GFR (African American) 80.6 ml/min; Est GFR (Non-African American) 69.5 ml/min; Magnesium 1.9 mg/dl (1.7-2.4); Potassium 4.5 mmol/L (3.5-5.1)
[2022-11-12 07:18] LABS: INR 2.3 (0.9-1.1); Prothrombin Time 23.7 Seconds (9.0-12.0)
[2022-11-12 08:13] LABS: Estimated Average Glucose 134 mg/dl; Hemoglobin A1C 6.3 % (4.5-5.6)
--- NOTE | 2022-11-12 08:45 | XRay Report ---
SINGLE VIEW CHEST CLINICAL HISTORY: Dyspnea FINDINGS: An AP, portable, upright chest radiograph is compared to study dated 11/11/2022. The examina tion is degraded by portable technique and apical lordotic positioning. The heart is enlarged. There is pulmonary vascular congestion and interstitial edema. Atelectasis is noted at the lung bases. No l arge pleural effusion or pneumothorax is identified. The bony thorax is grossly intact. IMPRESSION: Cardiomegaly with evidence of congestive failure and pulmonary edema. This is similar to yesterday. ACT 112: Negative or not required by law. Electronically signed by: Elbert Wen M.D. 11/12/2022 8:43 AM
[2022-11-12] MEDS ORDERED: FUROSEMIDE INJ 20 MG/2 ML VIAL IV SCH ×2 (09:00)
[2022-11-12] MEDS: ASPIRIN 81 MG ECTAB PO SCH (09:56)
[2022-11-12] MEDS: ENALAPRIL MALEATE 10 MG TAB PO SCH (09:56)
[2022-11-12] MEDS: FUROSEMIDE 40 MG/4 ML VIAL IV SCH ×2 (09:57→20:35)
[2022-11-12] MEDS: METOPROLOL TARTRATE 50 MG TAB PO SCH ×2 (09:57→20:28)
--- NOTE | 2022-11-12 10:33 | Cardiology Consultation ---
Date of Consultation November 12, 2022 Assessment & Plan (1) Acute on chronic respiratory failure with hypoxia and hypercapnia: (2) Morbid obesity: (3) Acute on chronic diastolic heart failure with preserved ejection fraction: (4) Atrial fibrillation: Plan Patient admitted with acute on chronic respiratory failure with hypoxia, multifactorial given obesity hypoventilatory syndrome, HFpEF. Patient had been non compliant with diuretics over the last year. Chest xray consistent with pulm edema/CHF. Per review of outpatient/inpatient records. Approx 80 lb weight gain noted over the last year. He presents with multifactorial volume overload and recently treated for upper respiratory tract infection as well. Symptoms improving with IV diuresis. Continue furosemide 40 mg IV Monitor I+O's. Fluid restriction of 1500 ml Low sodium diet Supplement magnesium. Monitor potassium and renal function Will need diuretics resumed on discharge. Patient recently resumed CPAP after recall last year. He reports he does not have supplemental O2 wiht CPAP. Will need evaluated. He has chronic afib, rates are controlled. Continue metoprolol and Coumadin for anticoagulation. Echo with preserved EF. Limited study given body habitus. Case discussed with Dr. Javier. Will follow. Supervising Physician Co-Signing Physician Notes Patient was seen and personally examined. History as well outlined above 62-year-old male with preserved ejection fraction and chronic diastolic heart failure presents with dramatic weight gain over the past 1 years time in association with at least in part significant volume overload and fluid retention right greater than left. Patient now responding to IV diuretic Exam with marked edema both lower extremities with increased abdominal girth. Remains in atrial fibrillation with controlled ventricular response rate Goals will be continued diuresis following renal function Resumption of CPAP History of Present Illness Reason for Consultation: SOB; Hypoxia; CHF Requesting Physician: Ms. Dwayne PA-C Attending Physician: Dr. 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 He also has a history of severe sleep apnea, and reports his CPAP was recalled and he has been without therapy for 2 years. He says last month he received new machine and has been using faithfully but feels it is not helping his shortness of breath. Patient reports over the last several weeks, worsening shortness of breath, cough, and lower extremity swelling. Apparently patient had contacted his PCP office for cough and shortness of breath and was prescribed antibiotic and cough medicine. He reports his cough slowly improved but he remains significantly short of breath with minimal activity and noted worsening lower extremity edema so he came to the emergency room for evaluation. He has not taken diuretic therapy in 1-2 years. He does not weigh himself daily. Last recorded weight in [facility] was 391 lbs in Sep 2021. Current weight here on admission was 485 lbs. After diuresis over the last 24 hours. Weight this morning recorded as 468. At time of consult, patient reports ongiong SOB with minimal activity. Still requiring supplemental O2. Receiving IV diuretics. Good outputs. Cough improving. Volume status difficult to determine with obesity. No chest pain. No fever or chills. Ongoing edema is chronic per patient. Allergies Allergy/AdvReac Type Severity Reaction Status Date / Time No Known Allergies Allergy Mild Verified 11/11/22 14:55 Home Medications Medication Instructions Recorded Confirmed Type albuterol sulfate 90 mcg/actuation 2 puff inhalation QID 11/11/22 11/11/22 History aerosol inhaler aspirin 81 mg capsule 81 mg PO QAM 11/11/22 11/11/22 History atorvastatin 40 mg tablet 40 mg PO HS 11/11/22 11/11/22 History benazepril 40 mg tablet 40 mg PO QAM 11/11/22 11/11/22 History metoprolol tartrate 50 mg tablet 50 mg PO BID 11/11/22 11/11/22 History omeprazole 40 mg capsule,delayed 40 mg PO DAILYBB 11/11/22 11/11/22 History release tramadol 200 mg tablet,extended 200 mg PO HS 11/11/22 11/11/22 History release 24 hr warfarin 7.5 mg tablet 3.75 mg PO 4XWK 11/11/22 11/11/22 History warfarin 7.5 mg tablet 7.5 mg PO 3XWK 11/11/22 11/11/22 History Patient History Medical History (Updated 11/12/22 @ 10:50 by Sylvia Waters PA-C) DM2 (diabetes mellitus, type 2) GERD (gastroesophageal reflux disease) HLD (hyperlipidemia) HTN (hypertension) Morbid obesity Shortness of breath Social History Smoking Status: Never smoker Hx Alcohol Use: No Hx Substance Use: No Preferred Language: Sami Communication Ability: Effective Log Deckman Required: No Beliefs That Will Affect Care: None Current Living Situation: Spouse Feels Safe at Home: Yes Safety Concerns: Feels Safe At This Time Assistive Devices: Cane, Glasses and Walker Review of Systems Review of Systems: All systems reviewed & are unremarkable except as noted in HPI & below Physical Exam Constitutional: WD/WN, vitals as above + morbidly obese; no acute distress Neck: + thick neck Respiratory: no labored breathing Auscultation: + diminished lung sounds and + crackles Cardiovascular: Rate/Rhythm: + irregularly irregular Heart Sounds: no murmur (distant heart sounds. no audible murmur) Vessels: + JVD Extremities: + edema (2+ with chronic stasis changes) Gastrointestinal (Abdomen): normal bowel sounds, soft, nontender, no hepatosplenomegaly Musculoskeletal: no cyanosis or clubbing, extremities motor strength 5/5 Neurologic: PERRL, EOMI, accommodation nl, no face palsy, no dysarthria Results & Data Vital Signs (Past 12 Hours) Vital Signs Temp Pulse Pulse Resp BP BP Pulse Ox 11/12/22 07:27 36.7 C 84 18 153/89 H 91 11/12/22 07:14 84 11/12/22 02:49 36.8 C 78 20 139/82 93 11/11/22 23:20 92 H 19 93 11/11/22 23:54 11/11/22 23:01 36.8 C 92 H 20 129/67 94 O2 Del Method O2 Flow Rate 11/12/22 07:27 Nasal Cannula 5 11/12/22 07:14 11/12/22 02:49 Nasal Cannula 5 11/11/22 23:20 5 11/11/22 23:54 Nasal Cannula 4 11/11/22 23:01 Nasal Cannula 4 Laboratory Results Cardiac Enzymes 11/11/22 11/11/22 Range/Units 13:17 13:17 AST 26 (13-39) U/L Troponin I High Sens 6.7 (0-20) pg/ml B-Natriuretic Peptide 132 H (0-100) pg/ml Coagulation 11/11/22 11/11/22 11/12/22 Range/Units 13:17 13:17 05:52 PT 26.3 H 23.7 H (9.0-12.0) Seconds APTT 39.6 H (21.0-31.0) Seconds B-Natriuretic Peptide 132 H (0-100) pg/ml CBC 11/11/22 11/12/22 Range/Units 13:17 05:52 WBC 9.13 10.77 (4.8-10.8) K/ul RBC 4.45 L 4.33 L (4.70-6.10) M/uL Hgb 13.7 L 13.4 L (14.0-18.0) g/dl Hct 43.1 41.7 L (42.0-52.0) % Plt Count 275 284 (130-400) K/uL Neut # (Auto) 7.03 H (1.40-6.50) K/uL Lymph # (Auto) 0.99 L (1.2-3.4) K/uL [place] # (Auto) 0.78 H (0.11-0.59) K/uL Eos # (Auto) 0.23 (0-0.50) K/uL Baso # (Auto) 0.05 (0-0.2) K/uL Comprehensive Metabolic Panel 11/11/22 11/12/22 Range/Units 13:17 05:52 Sodium 139 139 (136-145) mmol/L Potassium 4.5 4.5 (3.5-5.1) mmol/L Chloride 102 102 (98-107) mmol/L Carbon Dioxide 29 32 (21-32) mmol/L BUN 16 18 (6-23) mg/dl Creatinine 0.97 1.14 (0.6-1.4) mg/dl Glucose 114 H 113 H (70-99(Fasting)) mg/dl Calcium 8.6 8.5 (8.5-10.1) mg/dl AST 26 (13-39) U/L ALT 16 (7-52) U/L Alkaline Phosphatase 125 H (34-104) U/L Total Protein 7.6 (6.0-8.3) gm/dl Albumin 3.3 L (3.4-5.0) gm/dl Intake and Output 11/11/22 11/12/22 11/12/22 22:59 06:59 14:59 Intake Total 440 / 780 340 / 780 Output Total 1700 / 2151 451 / 2151 Balance -1260 / -1371 -111 / -1371 Intake: IV 200 / 300 100 / 300 Magnesium Sulfate / D5w 1 gm In 200 / 300 100 / 300 100 ml @ 50 mls/hr IV Q2H [facility] Rx#:[id number] Oral 240 / 480 240 / 480 Output: Urine Amount (Catheter) 1699 450 / 2150 Espinoza/Indwelling 1699 450 / 2150 # Bowel Movements Other: Weight 217 kg 213.3 kg Weight Measurement Method Built in [facility]scale Built in [facility] Diagnostic Findings EKG on arrival: Atrial fibrillation with controlled rates. Poor tracing. significant artifact Echo report reviewed: Technically limited study due to body habitus. Normal LV function Not able to visualize valvular structures Chest X-Ray 11/12/22 08:00 SINGLE VIEW CHEST CLINICAL HISTORY: Dyspnea FINDINGS: An AP, portable, upright chest radiograph is compared to study dated 11/11/2022. The examination is degraded by portable technique and apical lordotic positioning. The heart is enlarged. There is pulmonary vascular congestion and interstitial edema. Atelectasis is noted at the lung bases. No large pleural effusion or pneumothorax is identified. The bony thorax is grossly intact. IMPRESSION: Cardiomegaly with evidence of congestive failure and pulmonary edema. This is similar to yesterday. ACT 112: Negative or not required by law. Electronically signed by: Elbert Wen M.D. 11/12/2022 8:43 AM Medications Administered Current Inpatient Medications Acetaminophen (Acetaminophen 325 Mg Tab) 650 mg PO Q4H PRN PRN Reason: Pain or Fever Stop: 12/11/22 14:31 Last Admin: 11/11/22 17:46 Dose: 650 mg Al Hydrox/Mg Hydrox/Simethicone (Aluminum/Magnesium Susp 30 Ml Udc) 15 ml PO Q4H PRN PRN Reason: Dyspepsia Stop: 12/11/22 14:31 Aspirin (Aspirin 81 Mg Ectab) 81 mg PO QAM [facility] Stop: 12/12/22 08:59 Last Admin: 11/12/22 09:56 Dose: 81 mg Atorvastatin Calcium (Atorvastatin 40 Mg Tab) 40 mg PO HS [facility] Stop: 12/11/22 20:59 Last Admin: 11/11/22 20:50 Dose: 40 mg Dextrose (Dextrose 50% 50 Ml Syringe) 25 - 50 ml IV UD PRN; Protocol PRN Reason: Hypoglycemia Protocol Stop: 12/11/22 17:16 Enalapril Maleate (Enalapril Maleate 10 Mg Tab) 40 mg PO QAM [facility] Stop: 12/12/22 08:59 Last Admin: 11/12/22 09:56 Dose: 40 mg Furosemide (Furosemide 40 Mg/4 Ml Vial) 40 mg IV BID [facility] Stop: 12/12/22 08:59 Last Admin: 11/12/22 09:57 Dose: 40 mg Glucagon (Glucagon For Inj 1 Mg Vial) 1 mg SQ UD PRN; Protocol PRN Reason: Hypoglycemia Protocol Stop: 12/11/22 17:16 Glucose (Glucose 10 Tab/Tube) 4 - 8 tab PO UD PRN; Protocol PRN Reason: Hypoglycemia Treatment Stop: 12/11/22 17:16 Glucose (Glucose 40% Gel 15 Gm Tube) 15 - 30 gm PO UD PRN; Protocol PRN Reason: Hypoglycemia Protocol Stop: 12/11/22 17:16 Labetalol HCl (Labetalol Hcl Iv 5 Mg/Ml 20ml) 5 mg IV Q6H PRN PRN Reason: hypertension Stop: 12/11/22 17:28 Magnesium Hydroxide (Magnesium Hydroxide Susp 30 Ml Udc) 30 ml PO Q12H PRN PRN Reason: Constipation Stop: 12/11/22 14:31 Metoprolol Tartrate (Metoprolol Tartrate 50 Mg Tab) 50 mg PO BID [facility] Stop: 12/11/22 20:59 Last Admin: 11/12/22 09:57 Dose: 50 mg Miscellaneous (Carbohydrates For Hypoglycemia ) 15 - 30 gm PO UD PRN PRN Reason: Hypoglycemia Protocol Stop: 12/11/22 17:16 Tramadol Er 200mg: Non-Formulary Patient's Own Med 1 each PO HS [facility] Stop: 12/11/22 20:59 Last Admin: 11/11/22 22:53 Dose: 200 mg Ondansetron HCl (Ondansetron Inj 2 Mg/Ml 2 Ml Vial) 4 mg IV Q6H PRN PRN Reason: Nausea Stop: 12/11/22 14:31 Pantoprazole Sodium (Pantoprazole 40 Mg Tab) 40 mg PO DAILYBB [facility] Stop: 12/12/22 06:29 Last Admin: 11/12/22 06:08 Dose: 40 mg Polyethylene Glycol (Polyethylene (Miralax) 17 Gm Pack) 17 gm PO DAILY PRN PRN Reason: Constipation Stop: 12/11/22 14:31 Warfarin Sodium (Warfarin Sod 7.5 Mg Tab) 7.5 mg PO [email or web address] [facility] Stop: 12/12/22 15:59 Warfarin Sodium (Warfarin Sod 1.25 Mg Tab) 3.75 mg PO [email or web address]@1600 [facility] Stop: 12/11/22 15:14 Last Admin: 11/11/22 17:28 Dose: 3.75 mg (4) Atrial fibrillation Atrial fibrillation type: unspecified chronic Qualified Code(s): I48.20 - Chronic atrial fibrillation, unspecified
--- NOTE | 2022-11-12 10:53 | Electrocardiogram Report ---
Test Reason : Blood Pressure : / mmHG Vent. Rate : 086 BPM Atrial Rate : 288 BPM P-R Int : 000 ms QRS Dur : 086 ms QT Int : 392 ms P-R-T Axes : 000 028 033 degrees QTc Int : 469 ms Poor data quality, interpretation may be adversely affected Atrial fibrillation Low voltage QRS Nonspecific ST and T wave abnormality Abnormal ECG When compared with ECG of 27-OCT-2012 10:18, Vent. rate has decreased BY 63 BPM Nonspecific T wave abnormality now evident in Lateral leads Confirmed by Marcelino Tenorio ([id number]) on 11/12/2022 10:53:21 AM Referred By: REFERRED SELF Confirmed By:Vimal Tenorio
--- NOTE | 2022-11-12 13:47 | Hospitalist Progress Note ---
Date of Service November 12, 2022 Assessment & Plan (1) Atrial fibrillation: Plan: Rate is controlled (2) Pulmonary edema: Plan: Acute on chronic diastolic heart failure with preserved EF He has been very noncompliant with his medications and has not been taking Lasix Received 40 of Lasix IV in the emergency room We will change Lasix 40 mg IV twice daily-Will monitor intake output chart Appreciate cardiology input Clinically a little better (3) Shortness of breath: (4) HTN (hypertension): (5) HLD (hyperlipidemia): (6) GERD (gastroesophageal reflux disease): (7) DM2 (diabetes mellitus, type 2): (8) Morbid obesity: Plan 62 year old Male with SOB; possible heart failure component. Not taking any home diuretics for past 1.5 years. BNP 132. Repeat ECHO pending; last one 2016. ROHIT and morbid obesity. Acute on chronic respiratory failure Shortness of breath: -Not on any diuretics -B/L LE swelling; with CXR findings and bilateral LE swelling, suspect a component of heart failure; do not suspect DVT as therapeutic on Coumadin -BNP 132 -Received Lasix 40 mg in ED; will start Lasix 20 mg IV daily -Espinoza inserted for adequate I/O -Fluid restriction 1500 mL -ECHO shows significantly limited study due to body habitus, grossly normal LV chamber size, normal LV systolic function and unable to evaluate valvular structure -Appreciate cardiology input and recommendation Hypomagnesemia: -Mg+ 1.4; Administer 3 G Mg+ and recheck in AM -No ectopy on ECG -Magnesium level is normalized at 1.9 Chronic Atrial fibrillation: -therapeutic on Coumadin -INR range 2-3; INR today 2.6 -Recheck INR in AM; no falls or reasons to hold DM2: -Not on any antidiabetic medications -A1C 03/06/22: 6.3; will recheck here. -FSBS ACHS SSI ordered and glycemic consultation ROHIT: -Morbid obesity -Wears CPAP at home -PT/OT HTN: - Takes Metoprolol; continue HLD: -Takes Simvastatin; continue -Lipid panel 02/2022: T, HDL 36, LDL 81 -Recheck lipid panel GERD: -Takes Omeprazole; continue Disposition: PCP: Dr. Koch CODE STATUS: Full code VTE prophylaxis: Therapeutic on Coumadin Admission and Anticipated Discharge Date Admission Date: November 11, 2022 Subjective 11/12/2022 The patient was seen and examined in medical telemetry unit He is morbidly obese and was admitted with increasing shortness of breath secondary to CHF and is complicated by respiratory failure with history of sleep apnea He has been noncompliant Denies any chest pain and the palpitation Feels slightly better following admission Review of Systems Review of Systems: All systems reviewed and are unremarkable except as noted below Respiratory: Mild to moderate respiratory distress Cardiovascular: Additional Comments: No chest pain Physical Exam Physical Exam: Lying in bed comfortably Constitutional: well developed, well nourished, + ill appearing and + morbidly obese Eyes: PERRL, conjunctivae normal, anicteric sclerae ENMT: external ear and nose normal, oropharynx normal Neck: trachea midline, no thyromegaly Respiratory: + labored breathing; no respiratory distress Auscultation: + diminished lung sounds, + crackles and + wheezes Cardiovascular: Rate/Rhythm: regular rate; not tachycardic Heart Sounds: normal S1 and normal S2; no murmur Extremities: + edema (Bilateral 1+ leg edema with chronic skin changes) Gastrointestinal (Abdomen): Inspection/Auscultation: + abdomen distended, normal bowel sounds, + abdominal wall ecchymosis and + abdominal edema (Edema abdominal wall with chronic skin changes) Musculoskeletal: No acute arthritis involving any joint Neurologic: Alert, awake and oriented times Lymphatic: no cervical or axillary lymphadenopathy Results & Data Results & Data Vital Signs (Past 12 Hours) Vital Signs Temp Pulse Pulse Resp BP BP Pulse Ox 11/12/22 08:30 11/12/22 11:09 37.2 C 81 18 168/63 H 93 11/12/22 07:27 36.7 C 84 18 153/89 H 91 11/12/22 07:14 84 11/12/22 02:49 36.8 C 78 20 139/82 93 O2 Del Method O2 Flow Rate 11/12/22 08:30 Nasal Cannula 4 11/12/22 11:09 Nasal Cannula 5 11/12/22 07:27 Nasal Cannula 5 11/12/22 07:14 11/12/22 02:49 Nasal Cannula 5 Laboratory Results Short CBC 11/11/22 11/12/22 Range/Units 13:17 05:52 WBC 9.13 10.77 (4.8-10.8) K/ul Hgb 13.7 L 13.4 L (14.0-18.0) g/dl Hct 43.1 41.7 L (42.0-52.0) % Plt Count 275 284 (130-400) K/uL BMP 11/11/22 11/12/22 13:17 05:52 Sodium 139 139 Potassium 4.5 4.5 Chloride 102 102 Carbon Dioxide 29 32 BUN 16 18 Creatinine 0.97 1.14 Glucose 114 H 113 H Calcium 8.6 8.5 Liver Function 11/11/22 Range/Units 13:17 Total Bilirubin 0.7 (0.2-1.0) mg/dl AST 26 (13-39) U/L ALT 16 (7-52) U/L Alkaline Phosphatase 125 H (34-104) U/L Albumin 3.3 L (3.4-5.0) gm/dl Urine 11/11/22 Range/Units 15:19 Urine Color Yellow Urine Appearance Clear (Clear) Urine pH 5.0 (4.5-7.5) Ur Specific [place] 1.007 (1.000-1.030) Urine Protein Negative (Negative) Urine Glucose (UA) Negative (Negative) Medications Administered Current Inpatient Medications Acetaminophen (Acetaminophen 325 Mg Tab) 650 mg PO Q4H PRN PRN Reason: Pain or Fever Stop: 12/11/22 14:31 Last Admin: 11/11/22 17:46 Dose: 650 mg Al Hydrox/Mg Hydrox/Simethicone (Aluminum/Magnesium Susp 30 Ml Udc) 15 ml PO Q4H PRN PRN Reason: Dyspepsia Stop: 12/11/22 14:31 Aspirin (Aspirin 81 Mg Ectab) 81 mg PO QA [facility] Stop: 12/12/22 08:59 Last Admin: 11/12/22 09:56 Dose: 81 mg Atorvastatin Calcium (Atorvastatin 40 Mg Tab) 40 mg PO HS [facility] Stop: 12/11/22 20:59 Last Admin: 11/11/22 20:50 Dose: 40 mg Dextrose (Dextrose 50% 50 Ml Syringe) 25 - 50 ml IV UD PRN; Protocol PRN Reason: Hypoglycemia Protocol Stop: 12/11/22 17:16 Enalapril Maleate (Enalapril Maleate 10 Mg Tab) 40 mg PO QAM [facility] Stop: 12/12/22 08:59 Last Admin: 11/12/22 09:56 Dose: 40 mg Furosemide (Furosemide 40 Mg/4 Ml Vial) 40 mg IV BID [facility] Stop: 12/12/22 08:59 Last Admin: 11/12/22 09:57 Dose: 40 mg Glucagon (Glucagon For Inj 1 Mg Vial) 1 mg SQ UD PRN; Protocol PRN Reason: Hypoglycemia Protocol Stop: 12/11/22 17:16 Glucose (Glucose 10 Tab/Tube) 4 - 8 tab PO UD PRN; Protocol PRN Reason: Hypoglycemia Treatment Stop: 12/11/22 17:16 Glucose (Glucose 40% Gel 15 Gm Tube) 15 - 30 gm PO UD PRN; Protocol PRN Reason: Hypoglycemia Protocol Stop: 12/11/22 17:16 Labetalol HCl (Labetalol Hcl Iv 5 Mg/Ml 20ml) 5 mg IV Q6H PRN PRN Reason: hypertension Stop: 12/11/22 17:28 Magnesium Hydroxide (Magnesium Hydroxide Susp 30 Ml Udc) 30 ml PO Q12H PRN PRN Reason: Constipation Stop: 12/11/22 14:31 Metoprolol Tartrate (Metoprolol Tartrate 50 Mg Tab) 50 mg PO BID [facility] Stop: 12/11/22 20:59 Last Admin: 11/12/22 09:57 Dose: 50 mg Miscellaneous (Carbohydrates For Hypoglycemia ) 15 - 30 gm PO UD PRN PRN Reason: Hypoglycemia Protocol Stop: 12/11/22 17:16 Tramadol Er 200mg: Non-Formulary Patient's Own Med 1 each PO HS [facility] Stop: 12/11/22 20:59 Last Admin: 11/11/22 22:53 Dose: 200 mg Ondansetron HCl (Ondansetron Inj 2 Mg/Ml 2 Ml Vial) 4 mg IV Q6H PRN PRN Reason: Nausea Stop: 12/11/22 14:31 Pantoprazole Sodium (Pantoprazole 40 Mg Tab) 40 mg PO DAILYBB [facility] Stop: 12/12/22 06:29 Last Admin: 11/12/22 06:08 Dose: 40 mg Polyethylene Glycol (Polyethylene (Miralax) 17 Gm Pack) 17 gm PO DAILY PRN PRN Reason: Constipation Stop: 12/11/22 14:31 Warfarin Sodium (Warfarin Sod 7.5 Mg Tab) 7.5 mg PO [email or web address] [facility] Stop: 12/12/22 15:59 Warfarin Sodium (Warfarin Sod 1.25 Mg Tab) 3.75 mg PO [email or web address]@1600 [facility] Stop: 12/11/22 15:14 Last Admin: 11/11/22 17:28 Dose: 3.75 mg (1) Atrial fibrillation Atrial fibrillation type: unspecified chronic Qualified Code(s): I48.20 - Chronic atrial fibrillation, unspecified (2) Pulmonary edema Chronicity: acute Qualified Code(s): J81.0 - Acute pulmonary edema
--- NOTE | 2022-11-12 15:24 | Electrocardiogram Report ---
Test Reason : Blood Pressure : / mmHG Vent. Rate : 086 BPM Atrial Rate : 097 BPM P-R Int : 000 ms QRS Dur : 092 ms QT Int : 438 ms P-R-T Axes : 000 024 019 degrees QTc Int : 524 ms Atrial fibrillation Low voltage QRS Prolonged QT Abnormal ECG When compared with ECG of 11-NOV-2022 13:00, Nonspecific T wave abnormality no longer evident in Lateral leads QT has lengthened Confirmed by Marcelino Tenorio ([id number]) on 11/12/2022 3:23:49 PM Referred By: REFERRED SELF Confirmed By:Vimal Tenorio
[2022-11-12] MEDS: WARFARIN SOD 7.5 MG TAB PO SCH (16:10)
[2022-11-12] MEDS: ATORVASTATIN 40 MG TAB PO SCH (20:28)
[2022-11-12] MEDS: TRAMADOL 200 MG PO SCH (21:08)
[2022-11-13] MEDS: PANTOprazole 40 MG TAB PO SCH (05:25)
[2022-11-13] MEDS: METOPROLOL TARTRATE 50 MG TAB PO SCH ×2 (07:57→20:02)
[2022-11-13] MEDS: ASPIRIN 81 MG ECTAB PO SCH (07:57)
[2022-11-13] MEDS: ENALAPRIL MALEATE 10 MG TAB PO SCH (07:57)
[2022-11-13 08:00] LABS: Calcium 8.6 mg/dl (8.5-10.1); Creatinine Clr Calc Pharmacy 138.2 ml/min; Est GFR (Non-African American) 75.9 ml/min; Magnesium 1.6 mg/dl (1.7-2.4); Phosphorus 2.6 mg/dl (2.5-4.9); Potassium 4.4 mmol/L (3.5-5.1)
[2022-11-13] MEDS: FUROSEMIDE 40 MG/4 ML VIAL IV SCH ×2 (08:08→20:02)
--- NOTE | 2022-11-13 10:48 | Cardiology Progress Note ---
Date of Service November 13, 2022 Assessment & Plan (1) Acute on chronic respiratory failure with hypoxia and hypercapnia: (2) Morbid obesity: (3) Acute on chronic diastolic heart failure with preserved ejection fraction: (4) Atrial fibrillation: Plan Patient admitted with acute on chronic respiratory failure with hypoxia, multifactorial given obesity hypoventilatory syndrome, HFpEF. Patient had been non compliant with diuretics over the last year. Chest xray consistent with pulm edema/CHF. Per review of outpatient/inpatient records. Approx 80 lb weight gain noted over the last year. Symptoms improving with IV diuresis. Continue furosemide 40 mg IV BID Significant diuresis over the last 24 hours. Monitor I+O's. Fluid restriction of 1500 ml Low sodium diet Daily weight. Supplement magnesium. Monitor potassium and renal function Still requiring supplemental O2. May need 2 step on discharge? Patient recently resumed CPAP after recalled device last year. He reports he does not have supplemental O2 with CPAP. Will need evaluated. He has chronic afib, rates are controlled. Continue metoprolol and Coumadin for anticoagulation. Echo with preserved EF. Limited study given body habitus. Case discussed with Dr. Javier. Will follow. Admission and Anticipated Discharge Date Admission Date: November 11, 2022 Supervising Physician Co-Signing Physician Notes Patient seen and examined, chart, medications telemetry reviewed. Assessment and plan as outlined above. Patient with marked acute on chronic diastolic heart failure with hypoxia, right heart failure predominating with abdominal girth increasing bilateral lower extremity edema. Weight increase greater than 80 pound Patient now diuresing and tolerating well Still substantial volume overload. We will continue diuresis Subjective Patient resting in bed. at bedside. reports ongoing SOB and requiring supplemental O2. Wore CPAP last night and feels oxygen with CPAP helps. He does not have this at home. Denies chest pain. Good diuresis over the last 24 hours. Ongoing dyspnea/SOB reported Review of Systems Review of Systems: All systems reviewed & are unremarkable except as noted in HPI & below Physical Exam Constitutional: WD/WN, vitals as above + morbidly obese; no acute distress Neck: + thick neck Respiratory: no labored breathing Auscultation: + diminished lung sounds and + crackles Cardiovascular: Rate/Rhythm: + irregularly irregular Heart Sounds: no murmur (distant heart sounds. no audible murmur) Vessels: + JVD Extremities: + edema (2+ with chronic stasis changes) Gastrointestinal (Abdomen): normal bowel sounds, soft, nontender, no hepatosplenomegaly Musculoskeletal: no cyanosis or clubbing, extremities motor strength 5/5 Neurologic: PERRL, EOMI, accommodation nl, no face palsy, no dysarthria Results & Data Vital Signs (Past 12 Hours) Vital Signs Temp Pulse Pulse Resp BP Pulse Ox O2 Del Method 11/13/22 07:35 36.6 C 79 18 128/68 98 Nasal Cannula 11/13/22 07:33 Nasal Cannula 11/13/22 07:14 95 H 11/13/22 03:38 37.2 C 89 18 115/69 96 CPAP 11/13/22 02:08 95 H 22 95 11/13/22 00:52 80 11/12/22 23:26 94 CPAP O2 Flow Rate 11/13/22 07:35 5 11/13/22 07:33 5 11/13/22 07:14 11/13/22 03:38 11/13/22 02:08 5 11/13/22 00:52 11/12/22 23:26 Laboratory Results Comprehensive Metabolic Panel 11/13/22 Range/Units 07:11 Sodium 139 (136-145) mmol/L Potassium 4.4 (3.5-5.1) mmol/L Chloride 98 (98-107) mmol/L Carbon Dioxide 35 H (21-32) mmol/L BUN 17 (6-23) mg/dl Creatinine 1.06 (0.6-1.4) mg/dl Glucose 111 H (70-99(Fasting)) mg/dl Calcium 8.6 (8.5-10.1) mg/dl Intake and Output 11/12/22 11/13/22 11/13/22 22:59 06:59 14:59 Intake Total 740 / 2120 700 / 2120 Output Total 2475 / 5225 950 / 5225 Balance -1735 / -3105 -250 / -3105 Intake: Oral 740 / 2120 700 / 2120 Output: Urine 2100 / 3900 Urine Amount (Catheter) 375 / 1325 950 / 1325 Espinoza/Indwelling 375 / 1325 950 / 1325 Diagnostic Findings Telemetry reviewed: Atrial fibrillation with controlled rates. Echo report reviewed: Technically limited study due to body habitus. Normal LV function Not able to visualize valvular structures Medications Administered Current Inpatient Medications Acetaminophen (Acetaminophen 325 Mg Tab) 650 mg PO Q4H PRN PRN Reason: Pain or Fever Stop: 12/11/22 14:31 Last Admin: 11/11/22 17:46 Dose: 650 mg Al Hydrox/Mg Hydrox/Simethicone (Aluminum/Magnesium Susp 30 Ml Udc) 15 ml PO Q4H PRN PRN Reason: Dyspepsia Stop: 12/11/22 14:31 Aspirin (Aspirin 81 Mg Ectab) 81 mg PO QAM [facility] Stop: 12/12/22 08:59 Last Admin: 11/13/22 07:57 Dose: 81 mg Atorvastatin Calcium (Atorvastatin 40 Mg Tab) 40 mg PO HS [facility] Stop: 12/11/22 20:59 Last Admin: 11/12/22 20:28 Dose: 40 mg Dextrose (Dextrose 50% 50 Ml Syringe) 25 - 50 ml IV UD PRN; Protocol PRN Reason: Hypoglycemia Protocol Stop: 12/11/22 17:16 Enalapril Maleate (Enalapril Maleate 10 Mg Tab) 40 mg PO QAM [facility] Stop: 12/12/22 08:59 Last Admin: 11/13/22 07:57 Dose: 40 mg Furosemide (Furosemide 40 Mg/4 Ml Vial) 40 mg IV BID [facility] Stop: 12/12/22 08:59 Last Admin: 11/13/22 08:08 Dose: 40 mg Glucagon (Glucagon For Inj 1 Mg Vial) 1 mg SQ UD PRN; Protocol PRN Reason: Hypoglycemia Protocol Stop: 12/11/22 17:16 Glucose (Glucose 10 Tab/Tube) 4 - 8 tab PO UD PRN; Protocol PRN Reason: Hypoglycemia Treatment Stop: 12/11/22 17:16 Glucose (Glucose 40% Gel 15 Gm Tube) 15 - 30 gm PO UD PRN; Protocol PRN Reason: Hypoglycemia Protocol Stop: 12/11/22 17:16 Labetalol HCl (Labetalol Hcl Iv 5 Mg/Ml 20ml) 5 mg IV Q6H PRN PRN Reason: hypertension Stop: 12/11/22 17:28 Magnesium Hydroxide (Magnesium Hydroxide Susp 30 Ml Udc) 30 ml PO Q12H PRN PRN Reason: Constipation Stop: 12/11/22 14:31 Metoprolol Tartrate (Metoprolol Tartrate 50 Mg Tab) 50 mg PO BID [facility] Stop: 12/11/22 20:59 Last Admin: 11/13/22 07:57 Dose: 50 mg Miscellaneous (Carbohydrates For Hypoglycemia ) 15 - 30 gm PO UD PRN PRN Reason: Hypoglycemia Protocol Stop: 12/11/22 17:16 Tramadol Er 200mg: Non-Formulary Patient's Own Med 1 each PO HS [facility] Stop: 12/11/22 20:59 Last Admin: 11/12/22 21:08 Dose: 200 mg Ondansetron HCl (Ondansetron Inj 2 Mg/Ml 2 Ml Vial) 4 mg IV Q6H PRN PRN Reason: Nausea Stop: 12/11/22 14:31 [facility]oprazole Sodium ([facility] 40 Mg [facility]) [facility] Stop: 12/12/22 06:29 Last Admin: 11/13/22 05:25 Dose: 40 mg Polyethylene Glycol (Polyethylene (Miralax) 17 Gm Pack) 17 gm PO DAILY PRN PRN Reason: Constipation Stop: 12/11/22 14:31 Warfarin Sodium (Warfarin Sod 7.5 Mg Tab) 7.5 mg PO [email or web address] [facility] Stop: 12/12/22 15:59 Last Admin: 11/12/22 16:10 Dose: 7.5 mg Warfarin Sodium (Warfarin Sod 1.25 Mg Tab) 3.75 mg PO [email or web address] [facility] Stop: 12/11/22 15:14 Last Admin: 11/11/22 17:28 Dose: 3.75 mg (4) Atrial fibrillation Atrial fibrillation type: unspecified chronic Qualified Code(s): I48.20 - Chronic atrial fibrillation, unspecified
--- NOTE | 2022-11-13 10:58 | Electrocardiogram Report ---
Test Reason : Blood Pressure : / mmHG Vent. Rate : 081 BPM Atrial Rate : 340 BPM P-R Int : 000 ms QRS Dur : 090 ms QT Int : 400 ms P-R-T Axes : 000 027 000 degrees QTc Int : 464 ms Poor data quality, interpretation may be adversely affected Atrial fibrillation Abnormal ECG When compared with ECG of 12-NOV-2022 14:15, QT has shortened Confirmed by Marcelino Tenorio ([id number]) on 11/13/2022 10:57:46 AM Referred By: REFERRED SELF Confirmed By:Vimal Tenorio
--- NOTE | 2022-11-13 14:38 | Hospitalist Progress Note ---
Date of Service November 13, 2022 Assessment & Plan (1) Atrial fibrillation: Plan: Rate is controlled (2) Pulmonary edema: Plan: Acute on chronic diastolic heart failure with preserved EF He has been very noncompliant with his medications and has not been taking Lasix Received 40 of Lasix IV in the emergency room We will change Lasix 40 mg IV twice daily-Will monitor intake output chart Appreciate cardiology input Clinically a little better We will continue IV Lasix 40 mg twice daily-monitor PRP (3) Shortness of breath: Plan: A little better Has been requiring 5 L to maintain saturation (4) HTN (hypertension): (5) HLD (hyperlipidemia): (6) GERD (gastroesophageal reflux disease): (7) DM2 (diabetes mellitus, type 2): (8) Morbid obesity: Plan 62 year old Male with SOB; possible heart failure component. Not taking any home diuretics for past 1.5 years. BNP 132. Repeat ECHO pending; last one 2016. ROHIT and morbid obesity. Acute on chronic respiratory failure Shortness of breath: -Not on any diuretics -B/L LE swelling; with CXR findings and bilateral LE swelling, suspect a component of heart failure; do not suspect DVT as therapeutic on Coumadin -BNP 132 -Received Lasix 40 mg in ED; will start Lasix 20 mg IV daily -Espinoza inserted for adequate I/O -Fluid restriction 1500 mL -ECHO shows significantly limited study due to body habitus, grossly normal LV chamber size, normal LV systolic function and unable to evaluate valvular struc ture -Appreciate cardiology input and recommendation -Continue with current dose of Lasix 40 mg twice daily -Monitor electrolytes Hypomagnesemia: -Mg+ 1.4; Administer 3 G Mg+ and recheck in AM -No ectopy on ECG -Magnesium level is normalized at 1.9 -Magnesium level is low at 1.6-provide oral magnesium Chronic Atrial fibrillation: -therapeutic on Coumadin -INR range 2-3; INR today 2.6 -Recheck INR in AM; no falls or reasons to hold -We will check INR tomorrow and continue with the current dose of Coumadin DM2: -Not on any antidiabetic medications -A1C 03/06/22: 6.3; will recheck here.-6.3 on 11/11/2022 -FSBS ACHS SSI ordered and glycemic consultation ROHIT: -Morbid obesity -Wears CPAP at home -PT/OT HTN: - Takes Metoprolol; continue HLD: -Takes Simvastatin; continue -Lipid panel 02/2022: T, HDL 36, LDL 81 -Recheck lipid panel GERD: -Takes Omeprazole; continue Disposition: PCP: Dr. Koch CODE STATUS: Full code VTE prophylaxis: Therapeutic on Coumadin Admission and Anticipated Discharge Date Admission Date: November 11, 2022 Subjective 11/12/2022 The patient was seen and examined in medical telemetry unit He is morbidly obese and was admitted with increasing shortness of breath secondary to CHF and is complicated by respiratory failure with history of sleep apnea He has been noncompliant Denies any chest pain and the palpitation Feels slightly better following admission 11/13/2022 The patient was seen and examined in medical telemetry unit He has been feeling a little better Still needs significant diuresis Complains today of some leg pain but no other symptoms Review of Systems Review of Systems: All systems reviewed and are unremarkable except as noted below Respiratory: Mild to moderate respiratory distress Cardiovascular: Additional Comments: No chest pain Physical Exam Physical Exam: Lying in bed comfortably Constitutional: well developed, well nourished, + ill appearing and + morbidly obese Eyes: PERRL, conjunctivae normal, anicteric sclerae ENMT: external ear and nose normal, oropharynx normal Neck: trachea midline, no thyromegaly Respiratory: + labored breathing; no respiratory distress Auscultation: + diminished lung sounds, + crackles and + wheezes Cardiovascular: Rate/Rhythm: regular rate; not tachycardic Heart Sounds: normal S1 and normal S2; no murmur Extremities: + edema (Bilateral 1+ leg edema with chronic skin changes) Gastrointestinal (Abdomen): Inspection/Auscultation: + abdomen distended, normal bowel sounds, + abdominal wall ecchymosis and + abdominal edema (Edema abdominal wall with chronic skin changes) Musculoskeletal: No acute arthritis involving any joint Neurologic: normal touch/pain/proprioception and moves all extremities; no focal motor deficits Psychiatric: A+Ox3, euthymic affect Lymphatic: no cervical or axillary lymphadenopathy Results & Data Results & Data Vital Signs (Past 12 Hours) Vital Signs Temp Pulse Pulse Resp BP Pulse Ox O2 Del Method 11/13/22 11:01 36.7 C 84 18 126/65 97 Nasal Cannula 11/13/22 07:35 36.6 C 79 18 128/68 98 Nasal Cannula 11/13/22 07:33 Nasal Cannula 11/13/22 07:14 95 H 11/13/22 03:38 37.2 C 89 18 115/69 96 CPAP O2 Flow Rate 11/13/22 11:01 5 11/13/22 07:35 5 11/13/22 07:33 5 11/13/22 07:14 11/13/22 03:38 Laboratory Results BMP 11/13/22 07:11 Sodium 139 Potassium 4.4 Chloride 98 Carbon Dioxide 35 H BUN 17 Creatinine 1.06 Glucose 111 H Calcium 8.6 Medications Administered Current Inpatient Medications Acetaminophen (Acetaminophen 325 Mg Tab) 650 mg PO Q4H PRN PRN Reason: Pain or Fever Stop: 12/11/22 14:31 Last Admin: 11/11/22 17:46 Dose: 650 mg Al Hydrox/Mg Hydrox/Simethicone (Aluminum/Magnesium Susp 30 Ml Udc) 15 ml PO Q4H PRN PRN Reason: Dyspepsia Stop: 12/11/22 14:31 Aspirin (Aspirin 81 Mg Ectab) 81 mg PO QAM [facility] Stop: 12/12/22 08:59 Last Admin: 11/13/22 07:57 Dose: 81 mg Atorvastatin Calcium (Atorvastatin 40 Mg Tab) 40 mg PO HS [facility] Stop: 12/11/22 20:59 Last Admin: 11/12/22 20:28 Dose: 40 mg Dextrose (Dextrose 50% 50 Ml Syringe) 25 - 50 ml IV UD PRN; Protocol PRN Reason: Hypoglycemia Protocol Stop: 12/11/22 17:16 Enalapril Maleate (Enalapril Maleate 10 Mg Tab) 40 mg PO QAM [facility] Stop: 12/12/22 08:59 Last Admin: 11/13/22 07:57 Dose: 40 mg Furosemide (Furosemide 40 Mg/4 Ml Vial) 40 mg IV BID [facility] Stop: 12/12/22 08:59 Last Admin: 11/13/22 08:08 Dose: 40 mg Glucagon (Glucagon For Inj 1 Mg Vial) 1 mg SQ UD PRN; Protocol PRN Reason: Hypoglycemia Protocol Stop: 12/11/22 17:16 Glucose (Glucose 10 Tab/Tube) 4 - 8 tab PO UD PRN; Protocol PRN Reason: Hypoglycemia Treatment Stop: 12/11/22 17:16 Glucose (Glucose 40% Gel 15 Gm Tube) 15 - 30 gm PO UD PRN; Protocol PRN Reason: Hypoglycemia Protocol Stop: 12/11/22 17:16 Labetalol HCl (Labetalol Hcl Iv 5 Mg/Ml 20ml) 5 mg IV Q6H PRN PRN Reason: hypertension Stop: 12/11/22 17:28 Magnesium Hydroxide (Magnesium Hydroxide Susp 30 Ml Udc) 30 ml PO Q12H PRN PRN Reason: Constipation Stop: 12/11/22 14:31 Metoprolol Tartrate (Metoprolol Tartrate 50 Mg Tab) 50 mg PO BID [facility] Stop: 12/11/22 20:59 Last Admin: 11/13/22 07:57 Dose: 50 mg Miscellaneous (Carbohydrates For Hypoglycemia ) 15 - 30 gm PO UD PRN PRN Reason: Hypoglycemia Protocol Stop: 12/11/22 17:16 Tramadol Er 200mg: Non-Formulary Patient's Own Med 1 each PO HS [facility] Stop: 12/11/22 20:59 Last Admin: 11/12/22 21:08 Dose: 200 mg Ondansetron HCl (Ondansetron Inj 2 Mg/Ml 2 Ml Vial) 4 mg IV Q6H PRN PRN Reason: Nausea Stop: 12/11/22 14:31 Pantoprazole Sodium (Pantoprazole 40 Mg Tab) 40 mg PO DAILYBB [facility] Stop: 12/12/22 06:29 Last Admin: 11/13/22 05:25 Dose: 40 mg Polyethylene Glycol (Polyethylene (Miralax) 17 Gm Pack) 17 gm PO DAILY PRN PRN Reason: Constipation Stop: 12/11/22 14:31 Warfarin Sodium (Warfarin Sod 7.5 Mg Tab) 7.5 mg PO [email or web address]@1600 [facility] Stop: 12/12/22 15:59 Last Admin: 11/12/22 16:10 Dose: 7.5 mg Warfarin Sodium (Warfarin Sod 1.25 Mg Tab) 3.75 mg PO [email or web address]@1600 [facility] Stop: 12/11/22 15:14 Last Admin: 11/11/22 17:28 Dose: 3.75 mg (1) Atrial fibrillation Atrial fibrillation type: unspecified chronic Qualified Code(s): I48.20 - Chronic atrial fibrillation, unspecified (2) Pulmonary edema Chronicity: acute Qualified Code(s): J81.0 - Acute pulmonary edema
[2022-11-13] MEDS: WARFARIN SOD 1.25 MG TAB PO SCH (15:05)
[2022-11-13] MEDS: DICLOFENAC SOD 1% GEL 100 GM TUBE EXT SCH ×2 (16:09→20:03)
[2022-11-13] MEDS: MAGNESIUM OXIDE 400 MG TAB PO SCH (20:02)
[2022-11-13] MEDS: ATORVASTATIN 40 MG TAB PO SCH (20:02)
[2022-11-13] MEDS ORDERED: DICLOFENAC SOD 1% GEL 100 GM TUBE EXT SCH (21:00)
[2022-11-13] MEDS: TRAMADOL 200 MG PO SCH (21:05)
[2022-11-14] MEDS: PANTOprazole 40 MG TAB PO SCH (05:46)
[2022-11-14 07:31] LABS: BUN Creatinine Ratio 16.5 (10-20); Calcium 8.4 mg/dl (8.5-10.1); Est GFR (African American) 91.1 ml/min; Est GFR (Non-African American) 78.6 ml/min; Magnesium 1.3 mg/dl (1.7-2.4); Phosphorus 2.2 mg/dl (2.5-4.9); Potassium 4.1 mmol/L (3.5-5.1)
[2022-11-14] MEDS: ENALAPRIL MALEATE 10 MG TAB PO SCH (07:41)
[2022-11-14] MEDS: MAGNESIUM OXIDE 400 MG TAB PO SCH (07:41)
[2022-11-14] MEDS: FUROSEMIDE 40 MG/4 ML VIAL IV SCH ×2 (07:41→19:45)
[2022-11-14] MEDS: DICLOFENAC SOD 1% GEL 100 GM TUBE EXT SCH ×3 (07:41→19:45)
[2022-11-14] MEDS: METOPROLOL TARTRATE 50 MG TAB PO SCH (07:41)
[2022-11-14] MEDS: ASPIRIN 81 MG ECTAB PO SCH (07:42)
[2022-11-14] MEDS: POT PHOSPHATE MONOBASIC W/ SOD TAB PO SCH ×4 (09:42→19:46)
[2022-11-14] MEDS: MAGNESIUM SULFATE / D5W 1 GM/100 ML BAG IV SCH ×2 (09:42→11:57)
--- NOTE | 2022-11-14 11:23 | Cardiology Progress Note ---
Date of Service November 14, 2022 Assessment & Plan (1) Acute on chronic respiratory failure with hypoxia and hypercapnia: (2) Morbid obesity: (3) Acute on chronic diastolic heart failure with preserved ejection fraction: (4) Atrial fibrillation: Plan Patient admitted with acute on chronic respiratory failure with hypoxia, multifactorial given obesity hypoventilatory syndrome, HFpEF. Patient had been non compliant with diuretics over the last year. Chest xray consistent with pulm edema/CHF. Per review of outpatient/inpatient records. Approx 80 lb weight gain noted over the last year. Symptoms improving with IV diuresis. Continue furosemide 40 mg IV BID Significant diuresis since admission. weight trending down Monitor I+O's. Fluid restriction of 1500 ml Low sodium diet Daily weight. Supplement magnesium. Monitor potassium and renal function Still requiring supplemental O2. Wean as tolerated May need 2 step on discharge? Patient recently resumed CPAP after recalled device last year. He reports he does not have supplemental O2 with CPAP. Will need evaluated. He has chronic afib, rates are controlled. Continue metoprolol and Coumadin for anticoagulation. Ongoing severe right leg and foot pain noted. On chronic anticoagulation, so DVT is unlikely, but will proceed with venous duplex given body habitus and immobility. recommend PT/OT Consider ortho consult Echo with preserved EF. Limited study given body habitus. Case discussed with Dr. Javier. Will follow. Admission and Anticipated Discharge Date Admission Date: November 11, 2022 Supervising Physician Co-Signing Physician Notes Patient seen and examined, chart, medications telemetry reviewed. Assessment and plan as outlined above. Marked right heart failure with preserved LV systolic function continuing to diurese with complaints as noted Plan continue IV diuresis. We will switch metoprolol to tartrate to metoprolol succinate And spironolactone Subjective Patient resting in bed. Reports cough and SOB improving. No chest pain. Significant diuresis noted. Ongoing edema b/l. He reports severe right leg pain with minimal movement, which he attributes to his arthritis and missing his cortisone shot. Review of Systems Review of Systems: All systems reviewed & are unremarkable except as noted in HPI & below Physical Exam Constitutional: WD/WN, vitals as above + morbidly obese; no acute distress Neck: + thick neck Respiratory: no labored breathing Auscultation: + diminished lung sounds and + crackles Cardiovascular: Rate/Rhythm: + irregularly irregular Heart Sounds: no murmur (distant heart sounds. no audible murmur) Vessels: + JVD Extremities: + edema (2+ with chronic stasis changes) Gastrointestinal (Abdomen): normal bowel sounds, soft, nontender, no hepatosplenomegaly Musculoskeletal: no cyanosis or clubbing, extremities motor strength 5/5 Neurologic: PERRL, EOMI, accommodation nl, no face palsy, no dysarthria Results & Data Vital Signs (Past 12 Hours) Vital Signs Temp Pulse Pulse Resp BP Pulse Ox O2 Del Method 11/14/22 08:15 Nasal Cannula 11/14/22 07:43 36.6 C 62 18 118/64 98 Nasal Cannula 11/14/22 03:00 36.9 C 93 H 20 116/63 94 CPAP 11/14/22 00:33 90 O2 Flow Rate 11/14/22 08:15 5 11/14/22 07:43 5 11/14/22 03:00 11/14/22 00:33 Laboratory Results Comprehensive Metabolic Panel 11/14/22 Range/Units 06:16 Sodium 135 L (136-145) mmol/L Potassium 4.1 (3.5-5.1) mmol/L Chloride 94 L (98-107) mmol/L Carbon Dioxide 32 (21-32) mmol/L BUN 17 (6-23) mg/dl Creatinine 1.03 (0.6-1.4) mg/dl Glucose 130 H (70-99(Fasting)) mg/dl Calcium 8.4 L (8.5-10.1) mg/dl Intake and Output 11/13/22 11/14/22 11/14/22 22:59 06:59 14:59 Intake Total 150 / 565 100 / 565 Output Total 1900 / 4350 600 / 4350 Balance -1750 / -3785 -500 / -3785 Intake: Oral 150 / 565 100 / 565 Output: Urine Amount (Catheter) 1900 / 2500 600 / 2500 Espinoza/Indwelling 1900 / 2500 600 / 2500 Other: Weight 208 kg Diagnostic Findings telemetry reviewed: chronic/persistent atrial fibrillation with controlled rates. Medications Administered Current Inpatient Medications Acetaminophen (Acetaminophen 325 Mg Tab) 650 mg PO Q4H PRN PRN Reason: Pain or Fever Stop: 12/11/22 14:31 Last Admin: 11/11/22 17:46 Dose: 650 mg Al Hydrox/Mg Hydrox/Simethicone (Aluminum/Magnesium Susp 30 Ml Udc) 15 ml PO Q4H PRN PRN Reason: Dyspepsia Stop: 12/11/22 14:31 Aspirin (Aspirin 81 Mg Ectab) 81 mg PO QAM [facility] Stop: 12/12/22 08:59 Last Admin: 11/14/22 07:42 Dose: 81 mg Atorvastatin Calcium (Atorvastatin 40 Mg Tab) 40 mg PO HS [facility] Stop: 12/11/22 20:59 Last Admin: 11/13/22 20:02 Dose: 40 mg Dextrose (Dextrose 50% 50 Ml Syringe) 25 - 50 ml IV UD PRN; Protocol PRN Reason: Hypoglycemia Protocol Stop: 12/11/22 17:16 Diclofenac Sodium (Diclofenac Sod 1% Gel 100 Gm Tube) 2 gm EXT TID [facility]; Protocol Stop: 12/13/22 16:14 Last Admin: 11/14/22 07:41 Dose: 2 gm Enalapril Maleate (Enalapril Maleate 10 Mg Tab) 40 mg PO [facility] Stop: 12/12/22 08:59 Last Admin: 11/14/22 07:41 Dose: 40 mg Furosemide (Furosemide 40 Mg/4 Ml Vial) 40 mg IV BID [facility] Stop: 12/12/22 08:59 Last Admin: 11/14/22 07:41 Dose: 40 mg Glucagon (Glucagon For Inj 1 Mg Vial) 1 mg SQ UD PRN; Protocol PRN Reason: Hypoglycemia Protocol Stop: 12/11/22 17:16 Glucose (Glucose 10 Tab/Tube) 4 - 8 tab PO UD PRN; Protocol PRN Reason: Hypoglycemia Treatment Stop: 12/11/22 17:16 Glucose (Glucose 40% Gel 15 Gm Tube) 15 - 30 gm PO UD PRN; Protocol PRN Reason: Hypoglycemia Protocol Stop: 12/11/22 17:16 Magnesium Sulfate/Dextrose (Magnesium Sulfate / D5w) 1 gm in 100 mls @ 50 mls/hr IV Q2H [facility] Stop: 11/14/22 12:44 Last Admin: 11/14/22 09:42 Dose: 50 mls/hr Labetalol HCl (Labetalol Hcl Iv 5 Mg/Ml 20ml) 5 mg IV Q6H PRN PRN Reason: hypertension Stop: 12/11/22 17:28 Magnesium Hydroxide (Magnesium Hydroxide Susp 30 Ml Udc) 30 ml PO Q12H PRN PRN Reason: Constipation Stop: 12/11/22 14:31 Magnesium Oxide (Magnesium Oxide 400 Mg Tab) 400 mg PO BID [facility] Stop: 12/13/22 20:59 Last Admin: 11/14/22 07:41 Dose: 400 mg Metoprolol Tartrate (Metoprolol Tartrate 50 Mg Tab) 50 mg PO BID [facility] Stop: 12/11/22 20:59 Last Admin: 11/14/22 07:41 Dose: 50 mg Miscellaneous (Carbohydrates For Hypoglycemia ) 15 - 30 gm PO UD PRN PRN Reason: Hypoglycemia Protocol Stop: 12/11/22 17:16 Tramadol Er 200mg: Non-Formulary Patient's Own Med 1 each PO HS [facility] Stop: 12/11/22 20:59 Last Admin: 11/13/22 21:05 Dose: 200 mg Ondansetron HCl (Ondansetron Inj 2 Mg/Ml 2 Ml Vial) 4 mg IV Q6H PRN PRN Reason: Nausea Stop: 12/11/22 14:31 Pantoprazole Sodium (Pantoprazole 40 Mg Tab) 40 mg PO DAILYBB [facility] Stop: 12/12/22 06:29 Last Admin: 11/14/22 05:46 Dose: 40 mg Polyethylene Glycol (Polyethylene (Miralax) 17 Gm Pack) 17 gm PO DAILY PRN PRN Reason: Constipation Stop: 12/11/22 14:31 Potassium Phosphate (Pot Phosphate Monobasic W/ Sod Tab) 2 tab PO QID [facility] Stop: 12/14/22 08:59 Last Admin: 11/14/22 09:42 Dose: 2 tab Warfarin Sodium (Warfarin Sod 7.5 Mg Tab) 7.5 mg PO [id number]@1600 [facility] Stop: 12/12/22 15:59 Last Admin: 11/12/22 16:10 Dose: 7.5 mg Warfarin Sodium (Warfarin Sod 1.25 Mg Tab) 3.75 mg PO [id number]@1600 [facility] Stop: 12/11/22 15:14 Last Admin: 11/13/22 15:05 Dose: 3.75 mg (4) Atrial fibrillation Atrial fibrillation type: unspecified chronic Qualified Code(s): I48.20 - Chronic atrial fibrillation, unspecified
[2022-11-14] MEDS: ACETAMINOPHEN 325 MG TAB PO PRN (12:14)
[2022-11-14] MEDS: SPIRONOLACTONE 25 MG TAB PO SCH (14:00)
--- NOTE | 2022-11-14 14:04 | Ultrasound Report ---
ULTRASOUND RIGHT LOWER EXTREMITY VENOUS CLINICAL HISTORY: Right leg. COMPARISON STUDY: Bilateral lower extremity venous ultrasound dated 09/15/2010. TECHNIQUE: Real-time, grayscale, and color Doppler sonography of the deep veins of the right lower ex tremity was performed from the inguinal crease to the calf. Compression and augmentation were utilize d. FINDINGS: There is no sonographic evidence of deep venous thrombosis identified in the right lower ex tremity. The common femoral, superficial femoral, and popliteal veins are patent and normally juli sible. The greater saphenous vein and the profunda femoris vein at the junction with the common femor al vein are clear. The visualized calf veins are patent. IMPRESSION: There is no sonographic evidence of deep venous thrombosis identified in the right lower extremity. ACT 112: Negative or not required by law. Electronically signed by: Elbert Wen M.D. 11/14/2022 2:02 PM
--- NOTE | 2022-11-14 16:22 | Hospitalist Progress Note ---
Date of Service November 14, 2022 Assessment & Plan (1) Atrial fibrillation: Plan: Rate is controlled (2) Pulmonary edema: Plan: Acute on chronic diastolic heart failure with preserved EF He has been very noncompliant with his medications and has not been taking Lasix Received 40 of Lasix IV in the emergency room We will change Lasix 40 mg IV twice daily-Will monitor intake output chart Appreciate cardiology input Clinically a little better We will continue IV Lasix 40 mg twice daily-monitor PRP Cumulative negative balance of 8166 mL We will continue diuresis (3) Shortness of breath: Plan: A little better Has been requiring 5 L to maintain saturation (4) HTN (hypertension): Plan: Blood pressure is controlled (5) HLD (hyperlipidemia): (6) GERD (gastroesophageal reflux disease): (7) DM2 (diabetes mellitus, type 2): (8) Morbid obesity: Plan 62 year old Male with SOB; possible heart failure component. Not taking any home diuretics for past 1.5 years. BNP 132. Repeat ECHO pending; last one 2016. ROHIT and morbid obesity. Acute on chronic respiratory failure Shortness of breath: -Not on any diuretics -B/L LE swelling; with CXR findings and bilateral LE swelling, suspect a component of heart failure; do not suspect DVT as therapeutic on Coumadin -BNP 132 -Received Lasix 40 mg in ED; will start Lasix 20 mg IV daily -Espinoza inserted for adequate I/O -Fluid restriction 1500 mL -ECHO shows significantly limited study due to body habitus, grossly normal LV chamber size, normal LV systolic function and unable to evaluate valvular structure -Appreciate cardiology input and recommendation -Continue with current dose of Lasix 40 mg twice daily -Cumulative negative balance of 8166 mL-we will continue current dose of furosemide Bilateral leg edema Right more than the left Ultrasound of the right leg did not show any evidence of DVT Bilateral knee pain Likely secondary to osteoarthritis Will increase Tylenol to 1 g every 6 hourly as needed Continue using Voltaren gel Hypomagnesemia: Hypophosphatemia -Mg+ 1.4; Administer 3 G Mg+ and recheck in AM -No ectopy on ECG -Magnesium level is normalized at 1.9 -Will replace electrolytes Chronic Atrial fibrillation: -therapeutic on Coumadin -INR range 2-3; INR today 2.6 -Recheck INR in AM; no falls or reasons to hold -We will check INR tomorrow and continue with the current dose of Coumadin -INR remains therapeutic at 2.3 as of 11/14/2022 DM2: -Not on any antidiabetic medications -A1C 03/06/22: 6.3; will recheck here.-6.3 on 11/11/2022 -FSBS ACHS SSI ordered and glycemic consultation ROHIT: -Morbid obesity -Wears CPAP at home -PT/OT HTN: - Takes Metoprolol; continue HLD: -Takes Simvastatin; continue -Lipid panel 02/2022: T, HDL 36, LDL 81 -Recheck lipid panel GERD: -Takes Omeprazole; continue Disposition: PCP: Dr. Koch CODE STATUS: Full code VTE prophylaxis: Therapeutic on Coumadin Admission and Anticipated Discharge Date Admission Date: November 11, 2022 Subjective 11/12/2022 The patient was seen and examined in medical telemetry unit He is morbidly obese and was admitted with increasing shortness of breath secondary to CHF and is complicated by respiratory failure with history of sleep apnea He has been noncompliant Denies any chest pain and the palpitation Feels slightly better following admission 11/13/2022 The patient was seen and examined in medical telemetry unit He has been feeling a little better Still needs significant diuresis Complains today of some leg pain but no other symptoms 11/14/2022 The patient was seen and examined in medical telemetry unit He has been feeling better but he still requires more diuresis Has bilateral knee pain and has had injection in the knee joint before Review of Systems Review of Systems: All systems reviewed and are unremarkable except as noted below Respiratory: Mild to moderate respiratory distress Cardiovascular: Additional Comments: No chest pain Physical Exam Physical Exam: Lying in bed comfortably Constitutional: well developed, well nourished, + ill appearing and + morbidly obese Eyes: PERRL, conjunctivae normal, anicteric sclerae ENMT: external ear and nose normal, oropharynx normal Neck: trachea midline, no thyromegaly Respiratory: + labored breathing; no respiratory distress Auscultation: + diminished lung sounds, + crackles and + wheezes Cardiovascular: Rate/Rhythm: regular rate; not tachycardic Heart Sounds: normal S1 and normal S2; no murmur Extremities: + edema (Bilateral 1+ leg edema with chronic skin changes) Gastrointestinal (Abdomen): Inspection/Auscultation: + abdomen distended, normal bowel sounds, + abdominal wall ecchymosis and + abdominal edema (Edema abdominal wall with chronic skin changes) Musculoskeletal: Has pain in both the knee joint with movement Neurologic: normal touch/pain/proprioception and moves all extremities; no focal motor deficits Psychiatric: A+Ox3, euthymic affect Lymphatic: no cervical or axillary lymphadenopathy Results & Data Results & Data Vital Signs (Past 12 Hours) Vital Signs Temp Pulse Pulse Resp BP Pulse Ox O2 Del Method 11/14/22 15:12 110 H 11/14/22 14:57 36.7 C 110 H 20 129/68 94 Nasal Cannula 11/14/22 11:30 36.9 C 91 H 20 147/73 H 95 Nasal Cannula 11/14/22 08:15 Nasal Cannula 11/14/22 07:43 36.6 C 62 18 118/64 98 Nasal Cannula O2 Flow Rate 11/14/22 15:12 11/14/22 14:57 5 11/14/22 11:30 5 11/14/22 08:15 5 11/14/22 07:43 5 Laboratory Results [facility] 11/14/22 06:16 Sodium 135 L Potassium 4.1 Chloride 94 L Carbon Dioxide 32 BUN 17 Creatinine 1.03 Glucose 130 H Calcium 8.4 L Medications Administered Current Inpatient Medications Acetaminophen (Acetaminophen 325 Mg Tab) 650 mg PO Q4H PRN PRN Reason: Pain or Fever Stop: 12/11/22 14:31 Last Admin: 11/14/22 12:14 Dose: 650 mg Al Hydrox/Mg Hydrox/Simethicone (Aluminum/Magnesium Susp 30 Ml Udc) 15 ml PO Q4H PRN PRN Reason: Dyspepsia Stop: 12/11/22 14:31 Aspirin (Aspirin 81 Mg Ectab) 81 mg PO QAM [facility] Stop: 12/12/22 08:59 Last Admin: 11/14/22 07:42 Dose: 81 mg Atorvastatin Calcium (Atorvastatin 40 Mg Tab) 40 mg PO HS [facility] Stop: 12/11/22 20:59 Last Admin: 11/13/22 20:02 Dose: 40 mg Dextrose (Dextrose 50% 50 Ml Syringe) 25 - 50 ml IV UD PRN; Protocol PRN Reason: Hypoglycemia Protocol Stop: 12/11/22 17:16 Diclofenac Sodium (Diclofenac Sod 1% Gel 100 Gm Tube) 2 gm EXT TID [facility]; Protocol Stop: 12/13/22 16:14 Last Admin: 11/14/22 14:00 Dose: 2 gm Enalapril Maleate (Enalapril Maleate 10 Mg Tab) 40 mg PO QAM [facility] Stop: 12/12/22 08:59 Last Admin: 11/14/22 07:41 Dose: 40 mg Furosemide (Furosemide 40 Mg/4 Ml Vial) 40 mg IV BID [facility] Stop: 12/12/22 08:59 Last Admin: 11/14/22 07:41 Dose: 40 mg Glucagon (Glucagon For Inj 1 Mg Vial) 1 mg SQ UD PRN; Protocol PRN Reason: Hypoglycemia Protocol Stop: 12/11/22 17:16 Glucose (Glucose 10 Tab/Tube) 4 - 8 tab PO UD PRN; Protocol PRN Reason: Hypoglycemia Treatment Stop: 12/11/22 17:16 Glucose (Glucose 40% Gel 15 Gm Tube) 15 - 30 gm PO UD PRN; Protocol PRN Reason: Hypoglycemia Protocol Stop: 12/11/22 17:16 Labetalol HCl (Labetalol Hcl Iv 5 Mg/Ml 20ml) 5 mg IV Q6H PRN PRN Reason: hypertension Stop: 12/11/22 17:28 Magnesium Hydroxide (Magnesium Hydroxide Susp 30 Ml Udc) 30 ml PO Q12H PRN PRN Reason: Constipation Stop: 12/11/22 14:31 Magnesium Oxide (Magnesium Oxide 400 Mg Tab) 400 mg PO BID [facility] Stop: 12/13/22 20:59 Last Admin: 11/14/22 07:41 Dose: 400 mg Metoprolol Succinate (Metoprolol Succ 50mg Ext Rel Tab) 50 mg PO BID [facility] Stop: 12/14/22 20:59 Miscellaneous (Carbohydrates For Hypoglycemia ) 15 - 30 gm PO UD PRN PRN Reason: Hypoglycemia Protocol Stop: 12/11/22 17:16 Tramadol Er 200mg: Non-Formulary Patient's Own Med 1 each PO HS [facility] Stop: 12/11/22 20:59 Last Admin: 11/13/22 21:05 Dose: 200 mg Ondansetron HCl (Ondansetron Inj 2 Mg/Ml 2 Ml Vial) 4 mg IV Q6H PRN PRN Reason: Nausea Stop: 12/11/22 14:31 Pantoprazole Sodium (Pantoprazole 40 Mg Tab) 40 mg PO DAILYBB [facility] Stop: 12/12/22 06:29 Last Admin: 11/14/22 05:46 Dose: 40 mg Polyethylene Glycol (Polyethylene (Miralax) 17 Gm Pack) 17 gm PO DAILY PRN PRN Reason: Constipation Stop: 12/11/22 14:31 Potassium Phosphate (Pot Phosphate Monobasic W/ Sod Tab) 2 tab PO QID [facility] Stop: 12/14/22 08:59 Last Admin: 11/14/22 14:00 Dose: 2 tab Spironolactone (Spironolactone 25 Mg Tab) 25 mg PO QAM [facility] Stop: 12/14/22 12:59 Last Admin: 11/14/22 14:00 Dose: 25 mg Warfarin Sodium (Warfarin Sod 7.5 Mg Tab) 7.5 mg PO [email or web address] [facility] Stop: 12/12/22 15:59 Last Admin: 11/12/22 16:10 Dose: 7.5 mg Warfarin Sodium (Warfarin Sod 1.25 Mg Tab) 3.75 mg PO [email or web address] [facility] Stop: 12/11/22 15:14 Last Admin: 11/13/22 15:05 Dose: 3.75 mg (1) Atrial fibrillation Atrial fibrillation type: unspecified chronic Qualified Code(s): I48.20 - Chronic atrial fibrillation, unspecified (2) Pulmonary edema Chronicity: acute Qualified Code(s): J81.0 - Acute pulmonary edema
[2022-11-14] MEDS: WARFARIN SOD 7.5 MG TAB PO SCH (17:14)
[2022-11-14] MEDS: ATORVASTATIN 40 MG TAB PO SCH (19:46)
[2022-11-14] MEDS: METOPROLOL SUCC 50MG EXT REL TAB PO SCH (19:46)
[2022-11-14] MEDS: TRAMADOL 200 MG PO SCH (20:23)
[2022-11-15] MEDS: PANTOprazole 40 MG TAB PO SCH (05:54)
[2022-11-15 07:09] LABS: BUN Creatinine Ratio 19.7 (10-20); Calcium 8.1 mg/dl (8.6-10.3); Creatinine Clr Calc Pharmacy 108.2 ml/min; Est GFR (African American) 74.2 ml/min; Magnesium 1.6 mg/dl (1.7-2.4); Potassium 3.8 mmol/L (3.5-5.1)
[2022-11-15 07:28] LABS: INR 1.7 (0.9-1.1); Prothrombin Time 17.5 Seconds (9.0-12.0)
[2022-11-15] MEDS: SPIRONOLACTONE 25 MG TAB PO SCH (08:02)
[2022-11-15] MEDS: POT PHOSPHATE MONOBASIC W/ SOD TAB PO SCH ×4 (08:02→22:27)
[2022-11-15] MEDS: DICLOFENAC SOD 1% GEL 100 GM TUBE EXT SCH ×3 (08:02→21:58)
[2022-11-15] MEDS: ASPIRIN 81 MG ECTAB PO SCH (08:02)
[2022-11-15] MEDS: METOPROLOL SUCC 50MG EXT REL TAB PO SCH (08:03)
[2022-11-15] MEDS: FUROSEMIDE 40 MG/4 ML VIAL IV SCH ×2 (08:03→22:02)
[2022-11-15] MEDS: ENALAPRIL MALEATE 10 MG TAB PO SCH (08:03)
[2022-11-15] MEDS: MAGNESIUM SULFATE / D5W 1 GM/100 ML BAG IV SCH ×2 (09:26→11:32)
[2022-11-15] MEDS ORDERED: METOPROLOL SUCC 25MG EXT REL TAB PO ONE (09:50)
--- NOTE | 2022-11-15 09:59 | Cardiology Progress Note ---
Date of Service November 15, 2022 Assessment & Plan (1) Acute on chronic respiratory failure with hypoxia and hypercapnia: (2) Morbid obesity: (3) Acute on chronic diastolic heart failure with preserved ejection fraction: (4) Atrial fibrillation: Plan Patient admitted with acute on chronic respiratory failure with hypoxia, multifactorial given obesity hypoventilatory syndrome, HFpEF. Patient had been non compliant with diuretics over the last year. Chest xray consistent with pulm edema/CHF. Echo with preserved EF. Limited study given body habitus. Per review of outpatient/inpatient records. Approx 80 lb weight gain noted over the last year. Symptoms improving with IV diuresis. Continue furosemide 40 mg IV BID Significant diuresis since admission. weight trending down Monitor I+O's. Fluid restriction of 1500 ml Low sodium diet Daily weight. Supplement magnesium. Monitor potassium and renal function Creatinine increased from 1.0 to 1.2 this morning. Spironolactone 25 mg daily added yesterday. Metoprolol tartrate transitioned to metoprolol succinate. Increase to 75 mg BID for elevated ventricular rates. Continue Coumadin for anticoagulation. Venous duplex of the right leg was negative for DVT Still requiring supplemental O2. Wean as tolerated. May need 2 step on discharge? Patient recently resumed CPAP after recalled device last year. He reports he does not have supplemental O2 with CPAP. Will need evaluated. Needs to ambulate with PT/OT. Consider rehab. Case discussed with Dr. Javier. Will follow. Admission and Anticipated Discharge Date Admission Date: November 11, 2022 Supervising Physician Co-Signing Physician Notes Patient seen and examined, chart, medications telemetry reviewed. Assessment and plan as outlined above. Marked right heart failure with preserved LV systolic function continuing to diurese with complaints as noted Medical therapy is being adjusted for optimization Will need to increase activities Subjective Patient resting in bed. Reports SOB improved. Cough improved. Primary complaint is "pain all over". No chest pain. Tolerating meds. Good diuresis. Review of Systems Review of Systems: All systems reviewed & are unremarkable except as noted in HPI & below Physical Exam Constitutional: WD/WN, vitals as above + morbidly obese; no acute distress Neck: + thick neck Respiratory: no labored breathing Auscultation: + diminished lung sounds and + crackles Cardiovascular: Rate/Rhythm: + irregularly irregular Heart Sounds: no murmur (distant heart sounds. no audible murmur) Vessels: + JVD Extremities: + edema (2+ with chronic stasis changes) Gastrointestinal (Abdomen): normal bowel sounds, soft, nontender, no hepatosplenomegaly Musculoskeletal: no cyanosis or clubbing, extremities motor strength 5/5 Neurologic: PERRL, EOMI, accommodation nl, no face palsy, no dysarthria Results & Data Vital Signs (Past 12 Hours) Vital Signs Temp Pulse Pulse Resp BP Pulse Ox O2 Del Method 11/15/22 07:15 113 H 11/15/22 06:45 36.7 C 90 20 111/70 97 Nasal Cannula 11/15/22 03:07 36.7 C 20 102/64 94 Room Air 11/14/22 22:02 95 H 11/14/22 23:24 36.7 C 89 20 120/65 96 BiPAP O2 Flow Rate 11/15/22 07:15 11/15/22 06:45 5 11/15/22 03:07 11/14/22 22:02 11/14/22 23:24 Laboratory Results Coagulation 11/15/22 Range/Units 06:30 PT 17.5 H (9.0-12.0) Seconds Comprehensive Metabolic Panel 11/15/22 Range/Units 06:30 Sodium 135 L (136-145) mmol/L Potassium 3.8 (3.5-5.1) mmol/L Chloride 93 L (98-107) mmol/L Carbon Dioxide 34 H (21-32) mmol/L BUN 24 H (6-23) mg/dl Creatinine 1.22 (0.6-1.4) mg/dl Glucose 140 H (70-99(Fasting)) mg/dl Calcium 8.1 L (8.6-10.3) mg/dl Intake and Output 11/14/22 11/15/22 11/15/22 22:59 06:59 14:59 Intake Total 900 / 1645 3.333 / 3.333 Output Total 850 / 1500 Balance 50 / 145 3.333 / 3.333 Intake: IV 3.333 / 3.333 Magnesium Sulfate / D5w 1 gm In 3.333 / 3.333 100 ml @ 50 mls/hr IV Q2H [facility] Rx#:[id number] Oral 900 / 1445 Output: Urine Amount (Catheter) 850 / 850 Espinoza/Indwelling 850 / 850 Other: Weight 180.5 kg Weight Measurement Method Built in [facility] Diagnostic Findings Telemetry reviewed: Persistent atrial fibrillation with mildly elevated ventricular rates ranging 100-110 Medications Administered Current Inpatient Medications Acetaminophen (Acetaminophen 500 Mg Tab) 1,000 mg PO Q6H PRN PRN Reason: Pain or Fever Stop: 12/11/22 14:31 Al Hydrox/Mg Hydrox/Simethicone (Aluminum/Magnesium Susp 30 Ml Udc) 15 ml PO Q4H PRN PRN Reason: Dyspepsia Stop: 12/11/22 14:31 Aspirin (Aspirin 81 Mg Ectab) 81 mg PO QAM [facility] Stop: 12/12/22 08:59 Last Admin: 11/15/22 08:02 Dose: 81 mg Atorvastatin Calcium (Atorvastatin 40 Mg Tab) 40 mg PO HS [facility] Stop: 12/11/22 20:59 Last Admin: 11/14/22 19:46 Dose: 40 mg Dextrose (Dextrose 50% 50 Ml Syringe) 25 - 50 ml IV UD PRN; Protocol PRN Reason: Hypoglycemia Protocol Stop: 12/11/22 17:16 Diclofenac Sodium (Diclofenac Sod 1% Gel 100 Gm Tube) 2 gm EXT TID [facility]; Protocol Stop: 12/13/22 16:14 Last Admin: 11/15/22 08:02 Dose: 2 gm Enalapril Maleate (Enalapril Maleate 10 Mg Tab) [facility] [place] Stop: 12/12/22 08:59 Last Admin: 11/15/22 08:03 Dose: 40 mg Furosemide (Furosemide 40 Mg/4 Ml Vial) 40 mg IV BID [facility] Stop: 12/12/22 08:59 Last Admin: 11/15/22 08:03 Dose: 40 mg Glucagon (Glucagon For Inj 1 Mg Vial) 1 mg SQ UD PRN; Protocol PRN Reason: Hypoglycemia Protocol Stop: 12/11/22 17:16 Glucose (Glucose 10 Tab/Tube) 4 - 8 tab PO UD PRN; Protocol PRN Reason: Hypoglycemia Treatment Stop: 12/11/22 17:16 Glucose (Glucose 40% Gel 15 Gm Tube) 15 - 30 gm PO UD PRN; Protocol PRN Reason: Hypoglycemia Protocol Stop: 12/11/22 17:16 Magnesium Sulfate/Dextrose (Magnesium Sulfate / D5w) 1 gm in 100 mls @ 50 mls/hr IV Q2H [facility] Stop: 11/15/22 12:29 Last Infusion: 11/15/22 09:43 Dose: 50 mls/hr Labetalol HCl (Labetalol Hcl Iv 5 Mg/Ml 20ml) 5 mg IV Q6H PRN PRN Reason: hypertension Stop: 12/11/22 17:28 Magnesium Hydroxide (Magnesium Hydroxide Susp 30 Ml Udc) 30 ml PO Q12H PRN PRN Reason: Constipation Stop: 12/11/22 14:31 Magnesium Oxide (Magnesium Oxide 400 Mg Tab) 400 mg PO BID [facility] Stop: 12/13/22 20:59 Last Admin: 11/14/22 07:41 Dose: 400 mg Metoprolol Succinate (Metoprolol Succ 25mg Ext Rel Tab) 75 mg PO BID [facility] Stop: 12/15/22 20:59 Metoprolol Succinate (Metoprolol Succ 25mg Ext Rel Tab) 25 mg PO ONE ONE Stop: 11/15/22 09:51 Miscellaneous (Carbohydrates For Hypoglycemia ) 15 - 30 gm PO UD PRN PRN Reason: Hypoglycemia Protocol Stop: 12/11/22 17:16 Tramadol Er 200mg: Non-Formulary Patient's Own Med 1 each PO HS [facility] Stop: 12/11/22 20:59 Last Admin: 11/14/22 20:23 Dose: 200 mg Ondansetron HCl (Ondansetron Inj 2 Mg/Ml 2 Ml Vial) 4 mg IV Q6H PRN PRN Reason: Nausea Stop: 12/11/22 14:31 Pantoprazole Sodium (Pantoprazole 40 Mg Tab) 40 mg PO DAILYBB [facility] Stop: 12/12/22 06:29 Last Admin: 11/15/22 05:54 Dose: 40 mg Polyethylene Glycol (Polyethylene (Miralax) 17 Gm Pack) 17 gm PO DAILY PRN PRN Reason: Constipation Stop: 12/11/22 14:31 Potassium Phosphate (Pot Phosphate Monobasic W/ Sod Tab) 2 tab PO QID [facility] Stop: 12/14/22 08:59 Last Admin: 11/15/22 08:02 Dose: 2 tab Spironolactone (Spironolactone 25 Mg Tab) 25 mg PO QAM [facility] Stop: 12/14/22 12:59 Last Admin: 11/15/22 08:02 Dose: 25 mg Warfarin Sodium (Warfarin Sod 7.5 Mg Tab) 7.5 mg PO [email or web address] [facility] Stop: 12/12/22 15:59 Last Admin: 11/14/22 17:14 Dose: 7.5 mg Warfarin Sodium (Warfarin Sod 1.25 Mg Tab) 3.75 mg PO [email or web address] [facility] Stop: 12/11/22 15:14 Last Admin: 11/13/22 15:05 Dose: 3.75 mg (4) Atrial fibrillation Atrial fibrillation type: unspecified chronic Qualified Code(s): I48.20 - Chronic atrial fibrillation, unspecified
[2022-11-15] MEDS: WARFARIN SOD 1.25 MG TAB PO SCH (17:01)
--- NOTE | 2022-11-15 17:50 | Hospitalist Progress Note ---
Date of Service November 15, 2022 Assessment & Plan (1) Acute on chronic diastolic heart failure with preserved ejection fraction: Plan 62-year-old male with PMH of SLE, T2DM, ROHIT on CPAP, A-fib on Coumadin, HTN, morbid obesity presented to the ED 11/11 with complaint of worsening shortness of breath and lower extremity swelling since last 2 to 3 days prior to arrival. Patient reports having recent " cold-like symptoms" and was treated with antibiotic by his PCP which he completed about 8 days ago [employer]. He denies any new fever or chills or myalgia or increasing cough. He reports that he does not follow heart healthy diet, and has increased salty food/chips intake. But he does report that his water intake is modest which he refers to as " two 16 ounces bottles a day of water". He reports SOB w/ minimal exertion at presentation. He is being managed for the following: Acute on chronic respiratory failure Acute on chronic heart failure with preserved ejection fraction Presented to ED with worsening shortness of breath and lower extremity swelling [see above], not on any diuretics since 1.5 years at presentation. Admitting CXR with pulmonary edema, at admission BLE with 2+ pitting edema. At admission, BNP 132, EKG with A-fib with controlled rate. Echo with preserved ejection fraction. Cardiology on board, metoprolol 75 Mg twice daily, Aldactone 25 Mg daily, ongoing IV diuresis with Lasix. Maintain heart healthy diet, fluid restriction of 1800 mL/day. I's and O's -8 L. Continue telemetry monitoring. Bilateral leg edema Right more than the left Ultrasound of the right leg did not show any evidence of DVT Bilateral knee pain Likely secondary to osteoarthritis Will increase Tylenol to 1 g every 6 hourly as needed Continue using Voltaren gel He recently missed his scheduled b/l knee injection at Dr. Davis office, will consult [facility] to see if he can get injection while in patient. Electrolyte abnormalities: Monitor and replete. Chronic A-fib: On Coumadin, monitor INR daily or as needed. Other chronic medical conditions: DM2, ROHIT [wears CPAP at home], HTN, HLD, GERD --- continue with home meds as able. Sliding scale insulin while in hospital. Disposition: PCP: Dr. Koch CODE STATUS: Full code VTE prophylaxis: On Coumadin PT/OT to [facility] caraballo to assist with DC planning. Admission and Anticipated Discharge Date Admission Date: November 11, 2022 Subjective Patient seen and examined at bedside for follow-up of acute on chronic diastolic heart failure and shortness of breath. Patient was lying on bed, on 5 L oxygen via nasal cannula, reports no new acute event overnight, reports eating okay and moving bowels okay, reports improving shortness of breath and reports feeling better, denies headache or chest pain or cough or palpitation. Physical Exam Physical Exam: GENERAL: Alert and oriented x3. NAD, on 5L NC O2, Morbidly obese. HEENT: No pallor, no icterus. Pupils equal, round and reactive to light. Oral mucosa moist. NECK: No JVD, no neck masses. HEART: S1 and S2 heard. Regular rate and rhythm. No murmur, no gallop. RESPIRATORY SYSTEM: Normal AP diameter. No accessory muscle use. No wheezing, b/b crackles.Decreased breath sounds overall ABDOMEN: Soft, bowel sounds present, nontender, no distention. Lt abdomen w/ chronically indurated and raised areas w/ dry scales. CENTRAL NERVOUS SYSTEM: No facial droop. Speech is clear. Obeys simple commands. Moves extremities. EXTREMITIES:1 to 2+ BLE and pedal edema. No erythema seen. Results & Data Results & Data Vital Signs (Past 12 Hours) Vital Signs Temp Pulse Pulse Resp BP Pulse Ox O2 Del Method 11/15/22 15:54 102 H 11/15/22 12:16 36.9 C 98 H 18 119/65 95 Nasal Cannula 11/15/22 11:38 Nasal Cannula 11/15/22 07:15 113 H 11/15/22 06:45 36.7 C 90 20 111/70 97 Nasal Cannula O2 Flow Rate 11/15/22 15:54 11/15/22 12:16 4 11/15/22 11:38 4 11/15/22 07:15 11/15/22 06:45 5
[2022-11-15] MEDS: ATORVASTATIN 40 MG TAB PO SCH (21:59)
[2022-11-15] MEDS: METOPROLOL SUCC 25MG EXT REL TAB PO SCH (22:01)
[2022-11-15] MEDS: TRAMADOL 200 MG PO SCH (22:27)
[2022-11-16 06:00] LABS: Hemoglobin 12.4 g/dl (14.0-18.0); Mean Corpuscular Hemoglobin 30.5 pg (25.0-34.0); Mean Corpuscular Hgb Conc 31.8 g/dL (32.0-36.0); Mean Corpuscular Volume 95.8 fL (80.0-100.0); Mean Platelet Volume 10.6 fL (9.4-12.4); Platelet Count 254 K/uL (130-400); RDW Coefficient of Variation 12.3 % (11.5-14.5); RDW Standard Deviation 42.9 fL (36.4-46.3); Red Blood Count 4.07 M/uL (4.70-6.10); White Blood Count 14.82 K/ul (4.8-10.8)
[2022-11-16] MEDS: PANTOprazole 40 MG TAB PO SCH (06:04)
[2022-11-16 06:17] LABS: BUN Creatinine Ratio 21.1 (10-20); Calcium 7.9 mg/dl (8.6-10.3); Creatinine Clr Calc Pharmacy 126.7 ml/min; Est GFR (African American) 80.6 ml/min; Est GFR (Non-African American) 69.5 ml/min; Magnesium 1.7 mg/dl (1.7-2.4); Phosphorus 2.9 mg/dl (2.5-4.9); Potassium 3.7 mmol/L (3.5-5.1)
[2022-11-16 06:40] LABS: INR 1.6 (0.9-1.1); Prothrombin Time 17.1 Seconds (9.0-12.0)
[2022-11-16] MEDS: POT PHOSPHATE MONOBASIC W/ SOD TAB PO SCH ×4 (09:16→21:13)
[2022-11-16] MEDS: FUROSEMIDE 40 MG/4 ML VIAL IV SCH ×2 (09:16→21:12)
[2022-11-16] MEDS: DICLOFENAC SOD 1% GEL 100 GM TUBE EXT SCH ×3 (09:16→21:13)
[2022-11-16] MEDS: SPIRONOLACTONE 25 MG TAB PO SCH (09:17)
[2022-11-16] MEDS: ASPIRIN 81 MG ECTAB PO SCH (09:17)
[2022-11-16] MEDS: ENALAPRIL MALEATE 10 MG TAB PO SCH (09:17)
[2022-11-16] MEDS: METOPROLOL SUCC 25MG EXT REL TAB PO SCH ×2 (09:18→21:12)
--- NOTE | 2022-11-16 09:21 | Orthopedic Consultation ---
Date of Consultation November 16, 2022 Assessment & Plan (1) Bilateral chronic knee pain: Pt with chronic b/l knee pain, has recently missed his outpatient appointment with Dr. Davis for his injections due to recent illness. I spoke with Isaiah Guerrero PA-C today (Dr Davis' PA). Patient was getting serial injections in both knees for osteoarthritis. He missed his last injection time secondary to illness. Isaiah Guerrero PA-C said his last injections were done in July of 2022. We have been consulted to see him to provide bilateral knee injections. Pt is in agreement to have the injections done. (SARAH DE SOUZA) Injection sites were chosen on the left and right knees. These areas were cleansed with 2 alcohol swabs and 3 Betadine swabs and let the dry. Each knee was anesthetized at the site of injection with ethyl chloride. 2 separate syringes were used with 20-gauge needles. 80 mg of Depo-Medrol and 3 cc of half percent Marcaine were injected into the right and left knees. Patient tolerated the injections well. Pressure was applied to the injection sites for approximately 30 seconds and then Band-Aids were placed on both sites. (SARAH DE SOUZA) Pt may follow up with Dr. Davis in the future for further injections as needed. History of Present Illness Reason for Consultation: b/l knee pain, missed injections Attending Physician: Yao Valencia MD History of Present Illness Patient is a 62-year-old male with significant PMH of SLE, T2DM, ROHIT on CPAP, A- fib on Coumadin, HTN, morbid obesity who presented to the ED on 11/11 with complaints of worsening SOB and lower extremity swelling. He states he has had a persistent cough and "cold-like symptoms" as well. He was treated outpatient with oral antibiotics however did not seem to help. He was admitted to the hospital for further management of acute on chronic respiratory failure and acute on chronic heart failure. During the patient's hospital stay he has been c omplaining of ongoing bilateral knee pain. He does follow [facility] as an outpatient and undergoes knee injections ever [address] Davis or his PA Isaiah. Patient states he has missed his last injection earlier this month due to being sick. Medicine team has consulted [facility] for possible b/l knee injections while patient is inpatient. Allergies Allergy/AdvReac Type Severity Reaction Status Date / Time No Known Allergies Allergy Mild Verified 11/11/22 14:55 Home Medications Medication Instructions Recorded Confirmed Type albuterol sulfate 90 mcg/actuation 2 puff inhalation QID 11/11/22 11/11/22 History aerosol inhaler aspirin 81 mg capsule 81 mg PO QAM 11/11/22 11/11/22 History atorvastatin 40 mg tablet 40 mg PO HS 11/11/22 11/11/22 History benazepril 40 mg tablet 40 mg PO QAM 11/11/22 11/11/22 History metoprolol tartrate 50 mg tablet 50 mg PO BID 11/11/22 11/11/22 History omeprazole 40 mg capsule,delayed 40 mg PO DAILYBB 11/11/22 11/11/22 History release tramadol 200 mg tablet,extended 200 mg PO HS 11/11/22 11/11/22 History release 24 hr warfarin 7.5 mg tablet 3.75 mg PO 4XWK 11/11/22 11/11/22 History warfarin 7.5 mg tablet 7.5 mg PO 3XWK 11/11/22 11/11/22 History Patient History Medical History (Updated 11/16/22 @ 09:33 by Dayne Collins PA-C) DM2 (diabetes mellitus, type 2) GERD (gastroesophageal reflux disease) HLD (hyperlipidemia) HTN (hypertension) Morbid obesity Shortness of breath Social History Smoking Status: Never smoker Hx Alcohol Use: No Hx Substance Use: No Preferred Language: Khmer Communication Ability: Effective 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 Awake and alert x3 and is NAD. B/L lower extremities with +2 edema. +TTP over the lateral aspects of both knees. No apparent effusions appreciated. Results & Data Vital Signs (Past 12 Hours) Vital Signs Temp Pulse Pulse Resp BP Pulse Ox O2 Del Method 11/16/22 08:00 36.6 C 93 H 18 116/68 91 Nasal Cannula 11/16/22 07:50 97 H 11/16/22 02:25 36.7 C 90 20 152/75 H 94 Nasal Cannula 11/15/22 22:04 91 H 11/15/22 22:00 Nasal Cannula 11/15/22 22:48 36.8 C 89 20 103/67 95 Nasal Cannula 11/15/22 22:00 94 H 22 103/67 94 Nasal Cannula O2 Flow Rate 11/16/22 08:00 3 11/16/22 07:50 11/16/22 02:25 3 11/15/22 22:04 11/15/22 22:00 4 11/15/22 22:48 11/15/22 22:00 4 Laboratory Results Laboratory Results WBC 14.82 K/ul (4.8-10.8) H 11/16/22 05:35 RBC 4.07 M/uL (4.70-6.10) L 11/16/22 05:35 Hgb 12.4 g/dl (14.0-18.0) L 11/16/22 05:35 Hct 39.0 % (42.0-52.0) L 11/16/22 05:35 MCV 95.8 fL (80.0-100.0) 11/16/22 05:35 MCH 30.5 pg (25.0-34.0) 11/16/22 05:35 MCHC 31.8 g/dL (32.0-36.0) L 11/16/22 05:35 RDW Std Deviation 42.9 fL (36.4-46.3) 11/16/22 05:35 RDW Coeff of Zoila 12.3 % (11.5-14.5) 11/16/22 05:35 Plt Count 254 K/uL (130-400) 11/16/22 05:35 MPV 10.6 fL (9.4-12.4) 11/16/22 05:35 Immature Gran % (Auto) 0.5 % 11/11/22 13:17 Neut % (Auto) 77.2 % 11/11/22 13:17 Lymph % (Auto) 10.8 % 11/11/22 13:17 [place] % (Auto) 8.5 % 11/11/22 13:17 Eos % (Auto) 2.5 % 11/11/22 13:17 Baso % (Auto) 0.5 % 11/11/22 13:17 Neut # (Auto) 7.03 K/uL (1.40-6.50) H 11/11/22 13:17 Lymph # (Auto) 0.99 K/uL (1.2-3.4) L 11/11/22 13:17 [place] # (Auto) 0.78 K/uL (0.11-0.59) H 11/11/22 13:17 Eos # (Auto) 0.23 K/uL (0-0.50) 11/11/22 13:17 Baso # (Auto) 0.05 K/uL (0-0.2) 11/11/22 13:17 Immature Gran # (Auto) 0.05 K/uL (0.01-0.20) 11/11/22 13:17 PT 17.1 Seconds (9.0-12.0) H 11/16/22 05:35 INR 1.6 (0.9-1.1) H 11/16/22 05:35 APTT 39.6 Seconds (21.0-31.0) H 11/11/22 13:17 PTT Ratio 1.4 11/11/22 13:17 Sodium 134 mmol/L (136-145) L 11/16/22 05:35 Potassium 3.7 mmol/L (3.5-5.1) 11/16/22 05:35 Chloride 92 mmol/L (98-107) L 11/16/22 05:35 Carbon Dioxide 33 mmol/L (21-32) H 11/16/22 05:35 Anion Gap 9 (3-11) 11/16/22 05:35 BUN 24 mg/dl (6-23) H 11/16/22 05:35 Creatinine 1.14 mg/dl (0.6-1.4) 11/16/22 05:35 Est Cr Clr Drug Dosing 126.7 ml/min 11/16/22 05:35 Est GFR ( Amer) 80.6 ml/min 11/16/22 05:35 Est GFR (Non-Af Amer) 69.5 ml/min 11/16/22 05:35 BUN/Creatinine Ratio 21.1 (10-20) H 11/16/22 05:35 Glucose 135 mg/dl (70-99(Fasting)) H 11/16/22 05:35 POC Glucose 126 mg/dl (70-99) H 11/16/22 08:00 Estimat Average Glucose 134 mg/dl 11/11/22 13:17 Hemoglobin A1c 6.3 % (4.5-5.6) H 11/11/22 13:17 Calcium 7.9 mg/dl (8.6-10.3) L 11/16/22 05:35 Phosphorus 2.9 mg/dl (2.5-4.9) 11/16/22 05:35 Magnesium 1.7 mg/dl (1.7-2.4) 11/16/22 05:35 Total Bilirubin 0.7 mg/dl (0.2-1.0) 11/11/22 13:17 AST 26 U/L (13-39) 11/11/22 13:17 ALT 16 U/L (7-52) 11/11/22 13:17 Alkaline Phosphatase 125 U/L (34-104) H 11/11/22 13:17 Troponin I High Sens 6.7 pg/ml (0-20) 11/11/22 13:17 B-Natriuretic Peptide 132 pg/ml (0-100) H 11/11/22 13:17 Total Protein 7.6 gm/dl (6.0-8.3) 11/11/22 13:17 Albumin 3.3 gm/dl (3.4-5.0) L 11/11/22 13:17 Globulin 4.3 gm/dl (2.5-4.0) H 11/11/22 13:17 Albumin/Globulin Ratio 0.8 (0.9-2) L 11/11/22 13:17 Urine Color Yellow 11/11/22 15:19 Urine Appearance Clear (Clear) 11/11/22 15:19 Urine pH 5.0 (4.5-7.5) 11/11/22 15:19 Ur Specific Mcdade 1.007 (1.000-1.030) 11/11/22 15:19 Urine Protein Negative (Negative) 11/11/22 15:19 Urine Glucose (UA) Negative (Negative) 11/11/22 15:19 Urine Ketones Negative (Negative) 11/11/22 15:19 Urine Blood 3+ (Negative) H 11/11/22 15:19 Urine Nitrite Negative (Negative) 11/11/22 15:19 Urine Bilirubin Negative (Negative) 11/11/22 15:19 Urine Urobilinogen Negative (Negative) 11/11/22 15:19 Ur Leukocyte Esterase Negative (Negative) 11/11/22 15:19 Urine WBC (Auto) 1-5 /hpf (0-5) 11/11/22 15:19 Urine RBC (Auto) 0-4 /hpf (0-4) 11/11/22 15:19 U Hyaline Cast (Auto) 1-5 /lpf (0-5) 11/11/22 15:19 U Epithel Cells (Auto) 5-10 /lpf (0-5) H 11/11/22 15:19 Urine Bacteria (Auto) Negative (Negative) 11/11/22 15:19 SARS-CoV-2 (PCR) NEGATIVE (Negative) 11/11/22 13:17 Influenza Type A (PCR) Negative (Neg) 11/11/22 13:17 Influenza Type B (PCR) Negative (Neg) 11/11/22 13:17 RSV (RT-PCR) Negative (Neg) 11/11/22 13:17 Impressions Chest X-Ray 11/12/22 08:00 SINGLE VIEW CHEST CLINICAL HISTORY: Dyspnea FINDINGS: An AP, portable, upright chest radiograph is compared to study dated 11/11/2022. The examination is degraded by portable technique and apical lordotic positioning. The heart is enlarged. There is pulmonary vascular congestion and interstitial edema. Atelectasis is noted at the lung bases. No large pleural effusion or pneumothorax is identified. The bony thorax is grossly intact. IMPRESSION: Cardiomegaly with evidence of congestive failure and pulmonary edema. This is similar to yesterday. ACT 112: Negative or not required by law. Electronically signed by: Elbert Wen M.D. 11/12/2022 8:43 AM Venous Doppler Study 11/14/22 11:27 ULTRASOUND RIGHT LOWER EXTREMITY VENOUS CLINICAL HISTORY: Right leg. COMPARISON STUDY: Bilateral lower extremity venous ultrasound dated 09/15/2010. TECHNIQUE: Real-time, grayscale, and color Doppler sonography of the deep veins of the right lower extremity was performed from the inguinal crease to the calf. Compression and augmentation were utilized. FINDINGS: There is no sonographic evidence of deep venous thrombosis identified in the right lower extremity. The common femoral, superficial femoral, and popliteal veins are patent and normally compressible. The greater saphenous vein and the profunda femoris vein at the junction with the common femoral vein are clear. The visualized calf veins are patent. IMPRESSION: There is no sonographic evidence of deep venous thrombosis identified in the right lower extremity. ACT 112: Negative or not required by law. Electronically signed by: Elbert Wen M.D. 11/14/2022 2:02 PM
--- NOTE | 2022-11-16 09:46 | Cardiology Progress Note ---
Date of Service November 16, 2022 Assessment & Plan (1) Acute on chronic respiratory failure with hypoxia and hypercapnia: (2) Morbid obesity: (3) Acute on chronic diastolic heart failure with preserved ejection fraction: (4) Atrial fibrillation: Plan Patient admitted with acute on chronic respiratory failure with hypoxia, multifactorial given obesity hypoventilatory syndrome, HFpEF. Patient had been non compliant with diuretics over the last year. Chest xray consistent with pulm edema/CHF. Echo with preserved EF. Limited study given body habitus. Per review of outpatient/inpatient records. Approx 80 lb weight gain noted over the last year. Symptoms improving with IV diuresis. Continue furosemide 40 mg IV BID Significant diuresis since admission. weight trending down Monitor I+O's. Fluid restriction of 1500 ml Low sodium diet Daily weight. Supplement magnesium. Monitor potassium and renal function Spironolactone 25 mg daily added upon discharge will likely need at least furosemide 40 to 80 mg daily. Metoprolol tartrate transitioned to metoprolol succinate. Increase to 75 mg BID for elevated ventricular rates. Continue Coumadin for anticoagulation. Venous duplex of the right leg was negative for DVT Still requiring supplemental O2. Wean as tolerated. May need 2 step on discharge? Patient recently resumed CPAP after recalled device last year. He reports he does not have supplemental O2 with CPAP. Will need evaluated. Needs to ambulate with PT/OT. Consider rehab. Patient getting anxious for discharge. He is discussing leaving AMA. I advised against this. However, would start discharge planning and see if O2 is needed. Would consider removing pretty. Case discussed with Dr. Javier. Admission and Anticipated Discharge Date Admission Date: November 11, 2022 Supervising Physician Co-Signing Physician Notes Patient seen and examined, chart, medications, telemetry reviewed. Patient is improving. Evaluation and plan as noted above. Appears agreeable to further in-hospital management currently We will need CHF nursing/discharge instructions Notes he has home scale Subjective Patient out of bed in chair. resting comfortably. Reports SOB improved. No cough. Edema improving. He is anxious for discharge, wants to go home and aski ng about leaving AMA. Discussed he still is requiring supplemental O2 and this needs to be determined if he needs when he goes home. Also still has pretty. He had issues getting out of bed this morning. Difficulty standing. needs PT, possibly rehab? Review of Systems Review of Systems: All systems reviewed & are unremarkable except as noted in HPI & below Physical Exam Constitutional: WD/WN, vitals as above + morbidly obese; no acute distress Neck: + thick neck Respiratory: no labored breathing Auscultation: + diminished lung sounds and + crackles Cardiovascular: Rate/Rhythm: + irregularly irregular Heart Sounds: no murmur (distant heart sounds. no audible murmur) Vessels: + JVD Extremities: + edema (1+ with chronic stasis changes) Gastrointestinal (Abdomen): normal bowel sounds, soft, nontender, no hepatosplenomegaly Musculoskeletal: no cyanosis or clubbing, extremities motor strength 5/5 Neurologic: PERRL, EOMI, accommodation nl, no face palsy, no dysarthria Results & Data Vital Signs (Past 12 Hours) Vital Signs Temp Pulse Pulse Resp BP Pulse Ox O2 Del Method 11/16/22 08:00 36.6 C 93 H 18 116/68 91 Nasal Cannula 11/16/22 07:50 97 H 11/16/22 02:25 36.7 C 90 20 152/75 H 94 Nasal Cannula 11/15/22 22:04 91 H 11/15/22 22:00 Nasal Cannula 11/15/22 22:48 36.8 C 89 20 103/67 95 Nasal Cannula 11/15/22 22:00 94 H 22 103/67 94 Nasal Cannula O2 Flow Rate 11/16/22 08:00 3 11/16/22 07:50 11/16/22 02:25 3 11/15/22 22:04 11/15/22 22:00 4 11/15/22 22:48 11/15/22 22:00 4 Laboratory Results Coagulation 11/16/22 Range/Units 05:35 PT 17.1 H (9.0-12.0) Seconds CBC 11/16/22 Range/Units 05:35 WBC 14.82 H (4.8-10.8) K/ul RBC 4.07 L (4.70-6.10) M/uL Hgb 12.4 L (14.0-18.0) g/dl Hct 39.0 L (42.0-52.0) % Plt Count 254 (130-400) K/uL Comprehensive Metabolic Panel 11/16/22 Range/Units 05:35 Sodium 134 L (136-145) mmol/L Potassium 3.7 (3.5-5.1) mmol/L Chloride 92 L (98-107) mmol/L Carbon Dioxide 33 H (21-32) mmol/L BUN 24 H (6-23) mg/dl Creatinine 1.14 (0.6-1.4) mg/dl Glucose 135 H (70-99(Fasting)) mg/dl Calcium 7.9 L (8.6-10.3) mg/dl Intake and Output 11/15/22 11/16/22 11/16/22 22:59 06:59 14:59 Intake Total 450 / 1624.166 500 / 1624.166 Output Total 750 / 2502 1152 / 2502 Balance -300 / -877.834 -652 / -877.834 Intake: Oral 450 / 1430 500 / 1430 Output: Urine Amount (Catheter) 750 / 2500 1150 / 2500 Pretty/Indwelling 750 / 2500 1150 / 2500 # Bowel Movements 2 / 2 Other: Weight 208.7 kg Weight Measurement Method Built in [facility] Diagnostic Findings Telemetry reviewed: Afib controlled rates 80-110 bpm Medications Administered Current Inpatient Medications Acetaminophen (Acetaminophen 500 Mg Tab) 1,000 mg PO Q6H PRN PRN Reason: Pain or Fever Stop: 12/11/22 14:31 Al Hydrox/Mg Hydrox/Simethicone (Aluminum/Magnesium Susp 30 Ml Udc) 15 ml PO Q4H PRN PRN Reason: Dyspepsia Stop: 12/11/22 14:31 Aspirin (Aspirin 81 Mg Ectab) [facility] Stop: 12/12/22 08:59 Last Admin: 11/16/22 09:17 Dose: 81 mg Atorvastatin Calcium (Atorvastatin 40 Mg Tab) 40 mg PO HS [facility] Stop: 12/11/22 20:59 Last Admin: 11/15/22 21:59 Dose: 40 mg Dextrose (Dextrose 50% 50 Ml Syringe) 25 - 50 ml IV UD PRN; Protocol PRN Reason: Hypoglycemia Protocol Stop: 12/11/22 17:16 Diclofenac Sodium (Diclofenac Sod 1% Gel 100 Gm Tube) 2 gm EXT TID [facility]; Protocol Stop: 12/13/22 16:14 Last Admin: 11/16/22 09:16 Dose: 2 gm Enalapril Maleate (Enalapril Maleate 10 Mg Tab) 40 [facility] Stop: 12/12/22 08:59 Last Admin: 11/16/22 09:17 Dose: 40 mg Furosemide (Furosemide 40 Mg/4 Ml Vial) 40 mg IV BID [facility] Stop: 12/12/22 08:59 Last Admin: 11/16/22 09:16 Dose: 40 mg Glucagon (Glucagon For Inj 1 Mg Vial) 1 mg SQ UD PRN; Protocol PRN Reason: Hypoglycemia Protocol Stop: 12/11/22 17:16 Glucose (Glucose 10 Tab/Tube) 4 - 8 tab PO UD PRN; Protocol PRN Reason: Hypoglycemia Treatment Stop: 12/11/22 17:16 Glucose (Glucose 40% Gel 15 Gm Tube) 15 - 30 gm PO UD PRN; Protocol PRN Reason: Hypoglycemia Protocol Stop: 12/11/22 17:16 Magnesium Sulfate/Dextrose (Magnesium Sulfate / D5w) 1 gm in 100 mls @ 50 mls/hr IV Q2H [facility] Stop: 11/16/22 13:14 Labetalol HCl (Labetalol Hcl Iv 5 Mg/Ml 20ml) 5 mg IV Q6H PRN PRN Reason: hypertension Stop: 12/11/22 17:28 Magnesium Hydroxide (Magnesium Hydroxide Susp 30 Ml Udc) 30 ml PO Q12H PRN PRN Reason: Constipation Stop: 12/11/22 14:31 Magnesium Oxide (Magnesium Oxide 400 Mg Tab) 400 mg PO BID [facility] Stop: 12/13/22 20:59 Last Admin: 11/14/22 07:41 Dose: 400 mg Metoprolol Succinate (Metoprolol Succ 25mg Ext Rel Tab) 75 mg PO BID [facility] Stop: 12/15/22 20:59 Last Admin: 11/16/22 09:18 Dose: 75 mg Miconazole Nitrate (Miconazole Nitrate Powder 85 Gm) 1 appln EXT PRN PRN PRN Reason: Affected Skin Folds Stop: 12/16/22 04:25 Miscellaneous (Carbohydrates For Hypoglycemia ) 15 - 30 gm PO UD PRN PRN Reason: Hypoglycemia Protocol Stop: 12/11/22 17:16 Miscellaneous (Order Awaiting Action: Tramadol Er 200mg Tablets) 1 each N/A QS [facility] Stop: 12/16/22 07:59 Last Admin: 11/16/22 09:15 Dose: Not Given Tramadol Er 200mg: Non-Formulary Patient's Own Med 1 each PO HS [facility] Stop: 12/11/22 20:59 Last Admin: 11/15/22 22:27 Dose: 200 mg Ondansetron HCl (Ondansetron Inj 2 Mg/Ml 2 Ml Vial) 4 mg IV Q6H PRN PRN Reason: Nausea Stop: 12/11/22 14:31 Pantoprazole Sodium (Pantoprazole 40 Mg Tab) 40 mg PO DAILYBB [facility] Stop: 12/12/22 06:29 Last Admin: 11/16/22 06:04 Dose: 40 mg Polyethylene Glycol (Polyethylene (Miralax) 17 Gm Pack) 17 gm PO DAILY PRN PRN Reason: Constipation Stop: 12/11/22 14:31 Potassium Phosphate (Pot Phosphate Monobasic W/ Sod Tab) 2 tab PO QID [facility] Stop: 12/14/22 08:59 Last Admin: 11/16/22 09:16 Dose: 2 tab Spironolactone (Spironolactone 25 Mg Tab) 25 mg PO QAM [facility] Stop: 12/14/22 12:59 Last Admin: 11/16/22 09:17 Dose: 25 mg Warfarin Sodium (Warfarin Sod 7.5 Mg Tab) 7.5 mg PO [email or web address] [facility] Stop: 12/12/22 15:59 Last Admin: 11/14/22 17:14 Dose: 7.5 mg Warfarin Sodium (Warfarin Sod 1.25 Mg Tab) 3.75 mg PO [email or web address] [facility] Stop: 12/11/22 15:14 Last Admin: 11/15/22 17:01 Dose: 3.75 mg (4) Atrial fibrillation Atrial fibrillation type: unspecified chronic Qualified Code(s): I48.20 - Chronic atrial fibrillation, unspecified
[2022-11-16] MEDS ORDERED: ETHYL CHLORIDE AER SPR 100 ML CAN EXT ONE (10:11)
[2022-11-16] MEDS ORDERED: methylPREDNISolone acetate 80 MG/ML VIAL IA ONE ×2 (10:11→10:14)
[2022-11-16] MEDS ORDERED: BUPIVACAINE 0.5 % 5 MG/1 ML MPF 30ML VIAL INFIL ONE (10:11)
[2022-11-16] MEDS: MAGNESIUM SULFATE / D5W 1 GM/100 ML BAG IV SCH ×2 (10:21→12:03)
--- NOTE | 2022-11-16 15:43 | Hospitalist Progress Note ---
Date of Service November 16, 2022 Assessment & Plan (1) Acute on chronic diastolic heart failure with preserved ejection fraction: Plan 62-year-old male with PMH of SLE, T2DM, ROHIT on CPAP, A-fib on Coumadin, HTN, morbid obesity presented to the ED 11/11 with complaint of worsening shortness of breath and lower extremity swelling since last 2 to 3 days prior to arrival. 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 He denies any new fever or chills or myalgia or increasing cough. He reports that he does not follow heart healthy diet, and has increased salty food/chips intake. But he does report that his water intake is modest which he refers to as " two 16 ounces bottles a day of water". He reports SOB w/ minimal exertion at presentation. He is being managed for the following: Acute on chronic respiratory failure Acute on chronic heart failure with preserved ejection fraction Presented to ED with worsening shortness of breath and lower extremity swelling [see above], not on any diuretics since 1.5 years at presentation. Admitting CXR with pulmonary edema, at admission BLE with 2+ pitting edema. At admission, BNP 132, EKG with A-fib with controlled rate. Echo with preserved ejection fraction. Cardiology on board, metoprolol 75 Mg twice daily, Aldactone 25 Mg daily, ongoing IV diuresis with Lasix. Maintain heart healthy diet, fluid restriction of 1800 mL/day. I's and O's -9 L. Continue telemetry monitoring. Bilateral leg edema Right more than the left Ultrasound of the right leg did not show any evidence of DVT Bilateral knee pain Likely secondary to osteoarthritis Will increase Tylenol to 1 g every 6 hourly as needed Continue using Voltaren gel He recently missed his scheduled b/l knee injection at Dr. Davis office, [facility] consulted, --s/p b/l knee injection 11/16. Electrolyte abnormalities: Monitor and replete. Chronic A-fib: On Coumadin, monitor INR daily or as needed. Other chronic medical conditions: DM2, ROHIT [wears CPAP at home], HTN, HLD, GERD --- continue with home meds as able. Sliding scale insulin while in hospital. Disposition: PCP: Dr. Koch CODE STATUS: Full code VTE prophylaxis: On Coumadin PT/OT to eval CM to assist with DC planning. Admission and Anticipated Discharge Date Admission Date: November 11, 2022 Subjective Patient seen and examined at bedside for follow-up of acute on chronic diastolic heart failure and shortness of breath. Patient sitting up in chair, on 2 L oxygen via nasal cannula, reports no new acute event overnight, reports eating okay; reports watery bowel movement/not foul smelling per RN - will keep close eye any c diff infxn, reports improving shortness of breath and reports feeling better, denies headache or chest pain or cough or palpitation. Physical Exam Physical Exam: GENERAL: Alert and oriented x3. NAD, on 2L NC O2, Morbidly obese. HEENT: No pallor, no icterus. Pupils equal, round and reactive to light. Oral mucosa moist. NECK: No JVD, no neck masses. HEART: S1 and S2 heard. Regular rate and rhythm. No murmur, no gallop. RESPIRATORY SYSTEM: Normal AP diameter. No accessory muscle use. No wheezing, b/b crackles.Decreased breath sounds overall ABDOMEN: Soft, bowel sounds present, nontender, no distention. Lt abdomen w/ chronically indurated and raised areas w/ dry scales. CENTRAL NERVOUS SYSTEM: No facial droop. Speech is clear. Obeys simple commands. Moves extremities. EXTREMITIES:1 to 2+ BLE and pedal edema. No erythema seen. Results & Data Results & Data Vital Signs (Past 12 Hours) Vital Signs Temp Pulse Pulse Resp BP Pulse Ox O2 Del Method 11/16/22 11:12 Nasal Cannula 11/16/22 10:49 36.3 C L 88 18 101/65 96 Nasal Cannula 11/16/22 08:00 36.6 C 93 H 18 116/68 91 Nasal Cannula 11/16/22 07:50 97 H O2 Flow Rate 11/16/22 11:12 2 11/16/22 10:49 3 11/16/22 08:00 3 11/16/22 07:50
[2022-11-16] MEDS: WARFARIN SOD 7.5 MG TAB PO SCH (17:02)
[2022-11-16] MEDS: PSYLLIUM or GUAR GUM FIBER POWDER PACKET PO SCH (17:03)
[2022-11-16] MEDS: ATORVASTATIN 40 MG TAB PO SCH (21:12)
[2022-11-16] MEDS: TRAMADOL 200 MG PO SCH (21:41)
[2022-11-17] MEDS: PANTOprazole 40 MG TAB PO SCH (06:30)
[2022-11-17 06:44] LABS: Hematocrit (blood only) 38.9 % (42.0-52.0); Hemoglobin 12.6 g/dl (14.0-18.0); Mean Corpuscular Hemoglobin 30.7 pg (25.0-34.0); Mean Corpuscular Hgb Conc 32.4 g/dL (32.0-36.0); Mean Corpuscular Volume 94.6 fL (80.0-100.0); Mean Platelet Volume 10.9 fL (9.4-12.4); Platelet Count 272 K/uL (130-400); RDW Standard Deviation 42.2 fL (36.4-46.3); Red Blood Count 4.11 M/uL (4.70-6.10); White Blood Count 14.87 K/ul (4.8-10.8)
[2022-11-17 06:58] LABS: BUN Creatinine Ratio 25.5 (10-20); Calcium 8.2 mg/dl (8.6-10.3); Creatinine Clr Calc Pharmacy 105.5 ml/min; Est GFR (African American) 64.5 ml/min; Est GFR (Non-African American) 55.7 ml/min; Magnesium 2.1 mg/dl (1.7-2.4); Potassium 3.7 mmol/L (3.5-5.1)
[2022-11-17 07:29] LABS: INR 1.9 (0.9-1.1); Prothrombin Time 19.2 Seconds (9.0-12.0)
[2022-11-17] MEDS: ENALAPRIL MALEATE 10 MG TAB PO SCH (07:40)
[2022-11-17] MEDS: METOPROLOL SUCC 25MG EXT REL TAB PO SCH ×2 (07:44→21:15)
[2022-11-17] MEDS: ASPIRIN 81 MG ECTAB PO SCH (07:44)
[2022-11-17] MEDS: SPIRONOLACTONE 25 MG TAB PO SCH (07:44)
[2022-11-17] MEDS: POT PHOSPHATE MONOBASIC W/ SOD TAB PO SCH ×4 (07:45→21:13)
[2022-11-17] MEDS: PSYLLIUM or GUAR GUM FIBER POWDER PACKET PO SCH (07:45)
[2022-11-17] MEDS: FUROSEMIDE 40 MG/4 ML VIAL IV SCH ×2 (07:46→21:14)
[2022-11-17] MEDS: DICLOFENAC SOD 1% GEL 100 GM TUBE EXT SCH ×3 (07:46→21:13)
--- NOTE | 2022-11-17 08:29 | Orthopedic Progress Note ---
Date of Service November 17, 2022 Assessment & Plan (1) Bacterial arthritis of both knees: Plan: 62 yo morbidly obese male with known severe bilateral knee DJD, s/p repeat corticosteroid injections 1. Cont med management 2. Follow-up with Dr Davis as outpt as indicated. Ortho to sign off Admission and Anticipated Discharge Date Admission Date: November 11, 2022 Subjective Pt resting in bed, states improvement in knee pain s/p bilateral knee injections Physical Exam Physical Exam: Pt morbidly obese, venous stasis changes bilateral LEs Results & Data Vital Signs (Past 12 Hours) Vital Signs Temp Pulse Pulse Resp BP Pulse Ox O2 Del Method 11/17/22 07:50 36.4 C L 94 H 18 125/52 L 92 Nasal Cannula 11/17/22 07:13 87 11/17/22 02:36 36.6 C 100 H 18 125/66 94 Nasal Cannula 11/16/22 22:10 102 H 11/16/22 22:24 36.7 C 111 H 18 125/65 94 Nasal Cannula O2 Flow Rate 11/17/22 07:50 1 11/17/22 07:13 11/17/22 02:36 2 11/16/22 22:10 11/16/22 22:24 2
--- NOTE | 2022-11-17 16:22 | Hospitalist Progress Note ---
Date of Service November 17, 2022 Assessment & Plan (1) Acute on chronic diastolic heart failure with preserved ejection fraction: Plan 62-year-old male with PMH of SLE, T2DM, ROHIT on CPAP, A-fib on Coumadin, HTN, morbid obesity presented to the ED 11/11 with complaint of worsening shortness of breath and lower extremity swelling since last 2 to 3 days prior to arrival. 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 He denies any new fever or chills or myalgia or increasing cough. He reports that he does not follow heart healthy diet, and has increased salty food/chips intake. But he does report that his water intake is modest which he refers to as " two 16 ounces bottles a day of water". He reports SOB w/ minimal exertion at presentation. He is being managed for the following: Acute on chronic respiratory failure Acute on chronic heart failure with preserved ejection fraction Presented to ED with worsening shortness of breath and lower extremity swelling [see above], not on any diuretics since 1.5 years at presentation. Admitting CXR with pulmonary edema, at admission BLE with 2+ pitting edema. At admission, BNP 132, EKG with A-fib with controlled rate. Echo with preserved ejection fraction. Cardiology on board, metoprolol 75 Mg twice daily, Aldactone 25 Mg daily, ongoing IV diuresis with Lasix. Maintain heart healthy diet, fluid restriction of 1800 mL/day. I's and O's -9 L. Continue telemetry monitoring. Bilateral leg edema Right more than the left Ultrasound of the right leg did not show any evidence of DVT Bilateral knee pain Likely secondary to osteoarthritis Will increase Tylenol to 1 g every 6 hourly as needed Continue using Voltaren gel He recently missed his scheduled b/l knee injection at Dr. Davis office, [facility] consulted, --s/p b/l knee injection 11/16. Pt reports improvement in his knee pain. Electrolyte abnormalities: Monitor and replete. Chronic A-fib: On Coumadin, monitor INR daily or as needed. Other chronic medical conditions: DM2, ROHIT [wears CPAP at home], HTN, HLD, GERD --- continue with home meds as able. Sliding scale insulin while in hospital. Disposition: PCP: Dr. Koch CODE STATUS: Full code VTE prophylaxis: On Coumadin PT/OT to [facility] to assist with DC planning. Pending cardio clearance. Pt agreeable to go to rehab as of today's discussion. Admission and Anticipated Discharge Date Admission Date: November 11, 2022 Subjective Patient seen and examined at bedside for follow-up of acute on chronic diastolic heart failure and shortness of breath. Patient lying in bed, on 1 L oxygen via nasal cannula, reports no new acute event overnight, reports eating okay; reports watery bowel movement/not foul sm elling per RN - c diff sent/came back negative, reports improving shortness of breath and reports feeling better, denies headache or chest pain or cough or palpitation. will try imodium Physical Exam Physical Exam: GENERAL: Alert and oriented x3. NAD, on 1L NC O2, Morbidly obese. HEENT: No pallor, no icterus. Pupils equal, round and reactive to light. Oral mucosa moist. NECK: No JVD, no neck masses. HEART: S1 and S2 heard. Regular rate and rhythm. No murmur, no gallop. RESPIRATORY SYSTEM: Normal AP diameter. No accessory muscle use. No wheezing, b/b crackles. Decreased breath sounds overall ABDOMEN: Soft, bowel sounds present, nontender, no distention. Lt abdomen w/ chronically indurated and raised areas w/ dry scales. CENTRAL NERVOUS SYSTEM: No facial droop. Speech is clear. Obeys simple commands. Moves extremities. EXTREMITIES:1 to 2+ BLE and pedal edema. No erythema seen. Results & Data Results & Data Vital Signs (Past 12 Hours) Vital Signs Temp Pulse Pulse Resp BP Pulse Ox O2 Del Method 11/17/22 15:44 95 H 11/17/22 15:40 36.7 C 91 H 20 126/73 94 Nasal Cannula 11/17/22 12:14 93 Nasal Cannula 11/17/22 11:23 36.4 C L 88 20 113/63 90 Room Air 11/17/22 09:52 Nasal Cannula 11/17/22 07:50 36.4 C L 94 H 18 125/52 L 92 Nasal Cannula 11/17/22 07:13 87 O2 Flow Rate 11/17/22 15:44 11/17/22 15:40 1 11/17/22 12:14 1 11/17/22 11:23 11/17/22 09:52 1 11/17/22 07:50 1 11/17/22 07:13
[2022-11-17] MEDS: WARFARIN SOD 1.25 MG TAB PO SCH (17:32)
[2022-11-17] MEDS: LOPERAMIDE HCL 2 MG CAP PO PRN (17:41)
[2022-11-17] MEDS: TRAMADOL 200 MG PO SCH (21:13)
[2022-11-17] MEDS: ATORVASTATIN 40 MG TAB PO SCH (21:14)
[2022-11-18] MEDS: PANTOprazole 40 MG TAB PO SCH (06:16)
[2022-11-18 07:04] LABS: BUN Creatinine Ratio 34.5 (10-20); Creatinine Clr Calc Pharmacy 129.7 ml/min; Est GFR (African American) 84.1 ml/min; Est GFR (Non-African American) 72.6 ml/min; Magnesium 1.9 mg/dl (1.7-2.4); Phosphorus 3.9 mg/dl (2.5-4.9); Potassium 3.7 mmol/L (3.5-5.1)
[2022-11-18 07:07] LABS: INR 2.6 (0.9-1.1); Prothrombin Time 26.7 Seconds (9.0-12.0)
[2022-11-18] MEDS: DICLOFENAC SOD 1% GEL 100 GM TUBE EXT SCH ×3 (08:27→21:28)
[2022-11-18] MEDS: METOPROLOL SUCC 25MG EXT REL TAB PO SCH ×2 (08:27→21:29)
[2022-11-18] MEDS: SPIRONOLACTONE 25 MG TAB PO SCH (08:30)
[2022-11-18] MEDS: ENALAPRIL MALEATE 10 MG TAB PO SCH (08:30)
[2022-11-18] MEDS: ASPIRIN 81 MG ECTAB PO SCH (08:31)
[2022-11-18] MEDS: POT PHOSPHATE MONOBASIC W/ SOD TAB PO SCH ×4 (08:31→21:30)
[2022-11-18] MEDS: FUROSEMIDE 40 MG/4 ML VIAL IV SCH (08:32)
[2022-11-18] MEDS: PSYLLIUM or GUAR GUM FIBER POWDER PACKET PO SCH (08:32)
--- NOTE | 2022-11-18 15:57 | Hospitalist Progress Note ---
Date of Service November 18, 2022 Assessment & Plan (1) Acute on chronic diastolic heart failure with preserved ejection fraction: Plan 62-year-old male with PMH of SLE, T2DM, ROHIT on CPAP, A-fib on Coumadin, HTN, morbid obesity presented to the ED 11/11 with complaint of worsening shortness of breath and lower extremity swelling since last 2 to 3 days prior to arrival. 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 He denies any new fever or chills or myalgia or increasing cough. He reports that he does not follow heart healthy diet, and has increased salty food/chips intake. But he does report that his water intake is modest which he refers to as " two 16 ounces bottles a day of water". He reports SOB w/ minimal exertion at presentation. He is being managed for the following: Acute on chronic respiratory failure Acute on chronic heart failure with preserved ejection fraction Presented to ED with worsening shortness of breath and lower extremity swelling [see above], not on any diuretics since 1.5 years at presentation. Admitting CXR with pulmonary edema, at admission BLE with 2+ pitting edema. At admission, BNP 132, EKG with A-fib with controlled rate. Echo with preserved ejection fraction. Cardiology on board, metoprolol 75 Mg twice daily, Aldactone 25 Mg daily, ongoing IV diuresis with Lasix. Maintain heart healthy diet, fluid restriction of 2000 mL/day. I's and O's -11 L. Continue telemetry monitoring. Bilateral leg edema Right more than the left Ultrasound of the right leg did not show any evidence of DVT Bilateral knee pain Likely secondary to osteoarthritis Will increase Tylenol to 1 g every 6 hourly as needed Continue using Voltaren gel He recently missed his scheduled b/l knee injection at Dr. Davis office, [facility] consulted, --s/p b/l knee injection 11/16. Pt reports improvement in his knee pain. Electrolyte abnormalities: Monitor and replete. Chronic A-fib: On Coumadin, monitor INR daily or as needed. Other chronic medical conditions: DM2, ROHIT [wears CPAP at home], HTN, HLD, GERD --- continue with home meds as able. Sliding scale insulin while in hospital. Disposition: PCP: Dr. Koch CODE STATUS: Full code VTE prophylaxis: On Coumadin PT/OT to [facility] to assist with DC planning. Pending cardio clearance. Pt agreeable to go to rehab. Admission and Anticipated Discharge Date Admission Date: November 11, 2022 Subjective Patient seen and examined at bedside for follow-up of acute on chronic diastolic heart failure and shortness of breath. Patient lying in bed, on RA, reports no new acute event overnight, reports eating okay; reports watery bowel movement/not foul smelling -- improving, reports no shortness of breath and reports feeling better, denies headache or chest pain or cough or palpitation. Physical Exam Physical Exam: GENERAL: Alert and oriented x3. NAD, on RA, Morbidly obese. HEENT: No pallor, no icterus. Pupils equal, round and reactive to light. Oral mucosa moist. NECK: No JVD, no neck masses. HEART: S1 and S2 heard. Regular rate and rhythm. No murmur, no gallop. RESPIRATORY SYSTEM: Normal AP diameter. No accessory muscle use. No wheezing, b/b crackles. Decreased breath sounds overall ABDOMEN: Soft, bowel sounds present, nontender, no distention. Lt abdomen w/ chronically indurated and raised areas w/ dry scales. CENTRAL NERVOUS SYSTEM: No facial droop. Speech is clear. Obeys simple commands. Moves extremities. EXTREMITIES:1 to 2+ BLE and pedal edema. No erythema seen. Results & Data Results & Data Vital Signs (Past 12 Hours) Vital Signs Temp Pulse Pulse Resp BP BP Pulse Ox 11/18/22 11:20 36.5 C 89 18 118/67 91 11/18/22 11:00 11/18/22 08:22 36.7 C 80 20 145/85 H 92 11/18/22 07:06 83 O2 Del Method O2 Flow Rate 11/18/22 11:20 Room Air 11/18/22 11:00 Room Air 11/18/22 08:22 Nasal Cannula 1 11/18/22 07:06
[2022-11-18] MEDS: WARFARIN SOD 1.25 MG TAB PO SCH (17:48)
[2022-11-18] MEDS: ATORVASTATIN 40 MG TAB PO SCH (21:28)
[2022-11-18] MEDS: TRAMADOL 200 MG PO SCH (21:28)
[2022-11-19] MEDS: PANTOprazole 40 MG TAB PO SCH (06:16)
[2022-11-19 07:23] LABS: Hematocrit (blood only) 41.6 % (42.0-52.0); Hemoglobin 13.3 g/dl (14.0-18.0); Mean Corpuscular Hemoglobin 30.1 pg (25.0-34.0); Mean Corpuscular Volume 94.1 fL (80.0-100.0); Mean Platelet Volume 10.9 fL (9.4-12.4); Platelet Count 336 K/uL (130-400); RDW Coefficient of Variation 12.2 % (11.5-14.5); RDW Standard Deviation 42.8 fL (36.4-46.3); Red Blood Count 4.42 M/uL (4.70-6.10); White Blood Count 10.38 K/ul (4.8-10.8)
[2022-11-19 07:38] LABS: BUN Creatinine Ratio 34.3 (10-20); Calcium 8.1 mg/dl (8.6-10.3); Creatinine Clr Calc Pharmacy 135.5 ml/min; Est GFR (Non-African American) 76.8 ml/min; Magnesium 1.7 mg/dl (1.7-2.4); Phosphorus 3.2 mg/dl (2.5-4.9); Potassium 3.6 mmol/L (3.5-5.1)
[2022-11-19 07:40] LABS: Prothrombin Time 29.8 Seconds (9.0-12.0)
[2022-11-19] MEDS: DICLOFENAC SOD 1% GEL 100 GM TUBE EXT SCH ×3 (08:16→20:07)
[2022-11-19] MEDS: METOPROLOL SUCC 25MG EXT REL TAB PO SCH ×2 (08:17→20:07)
[2022-11-19] MEDS: ENALAPRIL MALEATE 10 MG TAB PO SCH (08:17)
[2022-11-19] MEDS: POT PHOSPHATE MONOBASIC W/ SOD TAB PO SCH ×4 (08:17→20:08)
[2022-11-19] MEDS: PSYLLIUM or GUAR GUM FIBER POWDER PACKET PO SCH (08:17)
[2022-11-19] MEDS: ASPIRIN 81 MG ECTAB PO SCH (08:17)
[2022-11-19] MEDS: SPIRONOLACTONE 25 MG TAB PO SCH (08:17)
[2022-11-19] MEDS: FUROSEMIDE 40 MG/4 ML VIAL IV SCH (08:17)
[2022-11-19] MEDS ORDERED: POTASSIUM CHLORIDE CRTAB 20 MEQ TABCR PO STA (09:03)
[2022-11-19] MEDS: MAGNESIUM SULFATE / D5W 1 GM/100 ML BAG IV SCH ×2 (09:37→11:38)
[2022-11-19] MEDS: LOPERAMIDE HCL 2 MG CAP PO PRN ×2 (10:18→14:56)
[2022-11-19] MEDS: WARFARIN SOD 7.5 MG TAB PO SCH (17:38)
--- NOTE | 2022-11-19 17:40 | Hospitalist Progress Note ---
Date of Service November 19, 2022 Assessment & Plan (1) Acute on chronic diastolic heart failure with preserved ejection fraction: Plan 62-year-old male with PMH of SLE, T2DM, ROHIT on CPAP, A-fib on Coumadin, HTN, morbid obesity presented to the ED 11/11 with complaint of worsening shortness of breath and lower extremity swelling since last 2 to 3 days prior to arrival. 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 He denies any new fever or chills or myalgia or increasing cough. He reports that he does not follow heart healthy diet, and has increased salty food/chips intake. But he does report that his water intake is modest which he refers to as " two 16 ounces bottles a day of water". He reports SOB w/ minimal exertion at presentation. He is being managed for the following: Acute on chronic respiratory failure Acute on chronic heart failure with preserved ejection fraction Presented to ED with worsening shortness of breath and lower extremity swelling [see above], not on any diuretics since 1.5 years at presentation. Admitting CXR with pulmonary edema, at admission BLE with 2+ pitting edema. At admission, BNP 132, EKG with A-fib with controlled rate. Echo with preserved ejection fraction. Cardiology on board, metoprolol 75 Mg twice daily, Aldactone 25 Mg daily, ongoing IV diuresis with Lasix. Maintain heart healthy diet, fluid restriction of 2000 mL/day. I's and O's -12.7 L. Continue telemetry monitoring. Bilateral leg edema Right more than the left Ultrasound of the right leg did not show any evidence of DVT Bilateral knee pain Likely secondary to osteoarthritis Will increase Tylenol to 1 g every 6 hourly as needed Continue using Voltaren gel He recently missed his scheduled b/l knee injection at Dr. Davis office, [facility] consulted, --s/p b/l knee injection 11/16. Pt reports improvement in his knee pain. Electrolyte abnormalities: Monitor and replete. Chronic A-fib: On Coumadin, monitor INR daily or as needed. Other chronic medical conditions: DM2, ROHIT [wears CPAP at home], HTN, HLD, GERD --- continue with home meds as able. Sliding scale insulin while in hospital. Disposition: PCP: Dr. Koch CODE STATUS: Full code VTE prophylaxis: On Coumadin PT/OT to [facility] to assist with DC planning. Pending cardio clearance. Pt agreeable to go to rehab. Also CM working on rehab. Admission and Anticipated Discharge Date Admission Date: November 11, 2022 Subjective Patient seen and examined at bedside for follow-up of acute on chronic diastolic heart failure and shortness of breath. Patient lying in bed, on RA, reports no new acute event overnight, reports eating okay; reports watery bowel movement/not foul smelling -- but has not been using loperamide, asked to use is after each loose BM, reports no shortness of breath and reports feeling better, denies headache or chest pain or cough or palpitation. Physical Exam Physical Exam: GENERAL: Alert and oriented x3. NAD, on RA, Morbidly obese. HEENT: No pallor, no icterus. Pupils equal, round and reactive to light. Oral mucosa moist. NECK: No JVD, no neck masses. HEART: S1 and S2 heard. Regular rate and rhythm. No murmur, no gallop. RESPIRATORY SYSTEM: Normal AP diameter. No accessory muscle use. No wheezing, b/b crackles. Decreased breath sounds overall ABDOMEN: Soft, bowel sounds present, nontender, no distention. Lt abdomen w/ chronically indurated and raised areas w/ dry scales. CENTRAL NERVOUS SYSTEM: No facial droop. Speech is clear. Obeys simple commands. Moves extremities. EXTREMITIES:1 to 2+ BLE and pedal edema. No erythema seen. Results & Data Results & Data Vital Signs (Past 12 Hours) Vital Signs Temp Pulse Pulse Resp BP BP Pulse Ox 11/19/22 16:05 18 94 11/19/22 15:56 36.6 C 101 H 21 127/88 92 11/19/22 15:23 91 H 11/19/22 15:04 95 11/19/22 11:15 36.5 C 89 20 144/75 H 94 11/19/22 08:15 11/19/22 07:36 36.4 C L 84 21 125/72 97 11/19/22 07:14 88 O2 Del Method O2 Flow Rate 11/19/22 16:05 Nasal Cannula 1.5 11/19/22 15:56 Nasal Cannula 1.5 11/19/22 15:23 11/19/22 15:04 1.5 11/19/22 11:15 Nasal Cannula 1.5 11/19/22 08:15 Nasal Cannula 1 11/19/22 07:36 Nasal Cannula 2 11/19/22 07:14
[2022-11-19] MEDS: ATORVASTATIN 40 MG TAB PO SCH (20:06)
[2022-11-19] MEDS: TRAMADOL 200 MG PO SCH (20:38)
[2022-11-20] MEDS: PANTOprazole 40 MG TAB PO SCH (06:12)
[2022-11-20 08:05] LABS: BUN Creatinine Ratio 28.7 (10-20); Calcium 8.3 mg/dl (8.6-10.3); Creatinine Clr Calc Pharmacy 151.3 ml/min; Est GFR (African American) 101.7 ml/min; Est GFR (Non-African American) 87.8 ml/min; Magnesium 1.6 mg/dl (1.7-2.4); Potassium 4.1 mmol/L (3.5-5.1)
[2022-11-20] MEDS: DICLOFENAC SOD 1% GEL 100 GM TUBE EXT SCH ×3 (08:05→21:37)
[2022-11-20] MEDS: ENALAPRIL MALEATE 10 MG TAB PO SCH (08:05)
[2022-11-20] MEDS: SPIRONOLACTONE 25 MG TAB PO SCH (08:05)
[2022-11-20] MEDS: POT PHOSPHATE MONOBASIC W/ SOD TAB PO SCH ×4 (08:06→21:38)
[2022-11-20] MEDS: PSYLLIUM or GUAR GUM FIBER POWDER PACKET PO SCH (08:06)
[2022-11-20] MEDS: FUROSEMIDE 40 MG/4 ML VIAL IV SCH (08:06)
[2022-11-20] MEDS: METOPROLOL SUCC 25MG EXT REL TAB PO SCH ×2 (08:06→21:37)
[2022-11-20] MEDS: ASPIRIN 81 MG ECTAB PO SCH (08:06)
--- NOTE | 2022-11-20 16:50 | Hospitalist Progress Note ---
Date of Service November 20, 2022 Assessment & Plan (1) Acute on chronic diastolic heart failure with preserved ejection fraction: Plan 62-year-old male with PMH of SLE, T2DM, ROHIT on CPAP, A-fib on Coumadin, HTN, morbid obesity presented to the ED 11/11 with complaint of worsening shortness of breath and lower extremity swelling since last 2 to 3 days prior to arrival. 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 He denies any new fever or chills or myalgia or increasing cough. He reports that he does not follow heart healthy diet, and has increased salty food/chips intake. But he does report that his water intake is modest which he refers to as " two 16 ounces bottles a day of water". He reports SOB w/ minimal exertion at presentation. He is being managed for the following: Acute on chronic respiratory failure Acute on chronic heart failure with preserved ejection fraction Presented to ED with worsening shortness of breath and lower extremity swelling [see above], not on any diuretics since 1.5 years at presentation. Admitting CXR with pulmonary edema, at admission BLE with 2+ pitting edema. At admission, BNP 132, EKG with A-fib with controlled rate. Echo with preserved ejection fraction. Cardiology on board, metoprolol 75 Mg twice daily, Aldactone 25 Mg daily, ongoing IV diuresis with Lasix. Maintain heart healthy diet, fluid restriction of 2000 mL/day. I's and O's -15.4 L. Continue telemetry monitoring. Reached out to cardio for DC eval/recs, await. Bilateral leg edema Right more than the left Ultrasound of the right leg did not show any evidence of DVT Bilateral knee pain Likely secondary to osteoarthritis Will increase Tylenol to 1 g every 6 hourly as needed Continue using Voltaren gel He recently missed his scheduled b/l knee injection at Dr. Davis office, [facility] consulted, --s/p b/l knee injection 11/16. Pt reports improvement in his knee pain. Electrolyte abnormalities: Monitor and replete. Chronic A-fib: On Coumadin, monitor INR daily or as needed. Other chronic medical conditions: DM2, ORHIT [wears CPAP at home], HTN, HLD, GERD --- continue with home meds as able. Sliding scale insulin while in hospital. Disposition: PCP: Dr. Koch CODE STATUS: Full code VTE prophylaxis: On Coumadin PT/OT to [facility] to assist with DC planning. Pending cardio clearance. Pt agreeable to go to rehab. Also CM working on rehab. Admission and Anticipated Discharge Date Admission Date: November 11, 2022 Subjective Patient seen and examined at bedside for follow-up of acute on chronic diastolic heart failure and shortness of breath. Patient lying in bed, on RA, reports no new acute event overnight, reports eati ng okay; per RN pt's bowel movement consistency improving, loperamide prn on board. Pt reports no shortness of breath and reports feeling better, denies headache or chest pain or cough or palpitation. Physical Exam Physical Exam: GENERAL: Alert and oriented x3. NAD, on RA, Morbidly obese. HEENT: No pallor, no icterus. Pupils equal, round and reactive to light. Oral mucosa moist. NECK: No JVD, no neck masses. HEART: S1 and S2 heard. Regular rate and rhythm. No murmur, no gallop. RESPIRATORY SYSTEM: Normal AP diameter. No accessory muscle use. No wheezing, b/b crackles. Decreased breath sounds overall ABDOMEN: Soft, bowel sounds present, nontender, no distention. Lt abdomen w/ chronically indurated and raised areas w/ dry scales. CENTRAL NERVOUS SYSTEM: No facial droop. Speech is clear. Obeys simple commands. Moves extremities. EXTREMITIES:1 to 2+ BLE and pedal edema. No erythema seen. Results & Data Results & Data Vital Signs (Past 12 Hours) Vital Signs Temp Pulse Pulse Resp BP Pulse Ox O2 Del Method 11/20/22 15:57 85 11/20/22 15:10 36.4 C L 78 18 153/63 H 96 Nasal Cannula 11/20/22 11:52 36.3 C L 81 18 165/70 H 96 Nasal Cannula 11/20/22 08:00 Nasal Cannula 11/20/22 07:43 18 94 Room Air 11/20/22 07:20 79 11/20/22 07:02 36.4 C L 99 H 20 111/70 90 Nasal Cannula O2 Flow Rate 11/20/22 15:57 11/20/22 15:10 1 11/20/22 11:52 1 11/20/22 08:00 1 11/20/22 07:43 03/28/23 07:20 11/20/22 07:02 1
[2022-11-20] MEDS: WARFARIN SOD 1.25 MG TAB PO SCH (17:08)
[2022-11-20] MEDS: MAGNESIUM SULFATE / D5W 1 GM/100 ML BAG IV SCH ×2 (17:10→19:09)
[2022-11-20] MEDS: ATORVASTATIN 40 MG TAB PO SCH (21:37)
[2022-11-20] MEDS: TRAMADOL 200 MG PO SCH (21:38)
[2022-11-20] MEDS ORDERED: Nursing to Pharmacy Communication SCH (22:00)
[2022-11-21] MEDS: PANTOprazole 40 MG TAB PO SCH (06:17)
[2022-11-21 07:44] LABS: INR 3.5 (0.9-1.1); Prothrombin Time 34.7 Seconds (9.0-12.0)
[2022-11-21 08:07] LABS: BUN Creatinine Ratio 25.8 (10-20); Calcium 8.7 mg/dl (8.6-10.3); Creatinine Clr Calc Pharmacy 146.3 ml/min; Est GFR (African American) 97.9 ml/min; Est GFR (Non-African American) 84.5 ml/min; Magnesium 1.6 mg/dl (1.7-2.4); Phosphorus 2.7 mg/dl (2.5-4.9); Potassium 4.6 mmol/L (3.5-5.1)
[2022-11-21] MEDS: ASPIRIN 81 MG ECTAB PO SCH (08:43)
[2022-11-21] MEDS: METOPROLOL SUCC 25MG EXT REL TAB PO SCH ×2 (08:43→21:40)
[2022-11-21] MEDS: SPIRONOLACTONE 25 MG TAB PO SCH (08:44)
[2022-11-21] MEDS: FUROSEMIDE 40 MG/4 ML VIAL IV SCH (08:44)
[2022-11-21] MEDS: POT PHOSPHATE MONOBASIC W/ SOD TAB PO SCH ×4 (08:44→21:42)
[2022-11-21] MEDS: PSYLLIUM or GUAR GUM FIBER POWDER PACKET PO SCH (08:44)
[2022-11-21] MEDS: ENALAPRIL MALEATE 10 MG TAB PO SCH (08:44)
[2022-11-21] MEDS: DICLOFENAC SOD 1% GEL 100 GM TUBE EXT SCH ×3 (08:45→21:43)
[2022-11-21] MEDS: MAGNESIUM SULFATE / D5W 1 GM/100 ML BAG IV SCH ×2 (12:54→15:00)
--- NOTE | 2022-11-21 13:13 | Hospitalist Progress Note ---
Date of Service November 21, 2022 Assessment & Plan (1) Acute on chronic diastolic heart failure with preserved ejection fraction: Plan 62-year-old male with PMH of SLE, T2DM, ROHIT on CPAP, A-fib on Coumadin, HTN, morbid obesity presented to the ED 11/11 with complaint of worsening shortness of breath and lower extremity swelling since last 2 to 3 days prior to arrival. 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 He denies any new fever or chills or myalgia or increasing cough. He reports that he does not follow heart healthy diet, and has increased salty food/chips intake. But he does report that his water intake is modest which he refers to as " two 16 ounces bottles a day of water". He reports SOB w/ minimal exertion at presentation. He is being managed for the following: Acute on chronic respiratory failure Acute on chronic heart failure with preserved ejection fraction Presented to ED with worsening shortness of breath and lower extremity swelling [see above], not on any diuretics since 1.5 years at presentation. Admitting CXR with pulmonary edema, at admission BLE with 2+ pitting edema. At admission, BNP 132, EKG with A-fib with controlled rate. Echo with preserved ejection fraction. Cardiology on board, metoprolol 75 Mg twice daily, Aldactone 25 Mg daily, was treated with IV diuretics.\\ DVT ruled out. Patient has total of -15 L since admission. We will start maintenance 20 mg twice daily. Remove Espinoza, trial of void. Bilateral knee pain Likely secondary to osteoarthritis Treated with Tylenol as needed. Continue using Voltaren gel He recently missed his scheduled b/l knee injection at Dr. Davis office, [facility] consulted, --s/p b/l knee injection 11/16. Pt reports improvement in his knee pain. Electrolyte abnormalities: Monitor and replete. Chronic A-fib: On Coumadin, monitor INR daily or as needed. Other chronic medical conditions: DM2, ROHIT [wears CPAP at home], HTN, HLD, GERD --- continue with home meds as able. Sliding scale insulin while in hospital. Disposition: PCP: Dr. Koch CODE STATUS: Full code VTE prophylaxis: On Coumadin PT/OT patient medically stable for discharge; DC when placement available. Admission and Anticipated Discharge Date Admission Date: November 11, 2022 Subjective Patient seen and examined at bedside. He is lying in the bed comfortably; not in any distress. He denies any fever, chills, chest pain or shortness of breath. Review of Systems Review of Systems: All systems reviewed & are unremarkable except as noted in Subjective Physical Exam Physical Exam: GENERAL: Alert and oriented x3. NAD, on RA, Morbidly obese. HEENT: No pallor, no icterus. Pupils equal, round and reactive to light. Oral mucosa moist. NECK: No JVD, no neck masses. HEART: S1 and S2 heard. Regular rate and rhythm. No murmur, no gallop. RESPIRATORY SYSTEM: Normal AP diameter. No accessory muscle use. No wheezing, b/b crackles. Decreased breath sounds overall ABDOMEN: Soft, bowel sounds present, nontender, no distention. Lt abdomen w/ chronically indurated and raised areas w/ dry scales. CENTRAL NERVOUS SYSTEM: No facial droop. Speech is clear. Obeys simple commands. Moves extremities. EXTREMITIES: 2+ bilateral pitting edema present. No erythema seen. Results & Data Results & Data Vital Signs (Past 12 Hours) Vital Signs Temp Pulse Pulse Resp BP Pulse Ox O2 Del Method 11/21/22 08:45 Nasal Cannula 11/21/22 11:15 37.1 C 94 H 20 124/64 94 Nasal Cannula 11/21/22 07:01 93 H 11/21/22 06:20 37.1 C 87 20 137/76 96 Nasal Cannula 11/21/22 04:04 36.5 C 86 20 128/77 94 Nasal Cannula O2 Flow Rate 11/21/22 08:45 1 11/21/22 11:15 1 11/21/22 07:01 11/21/22 06:20 1 11/21/22 04:04 1 Laboratory Results Laboratory Results WBC 10.38 K/ul (4.8-10.8) 11/19/22 06:25 RBC 4.42 M/uL (4.70-6.10) L 11/19/22 06:25 Hgb 13.3 g/dl (14.0-18.0) L 11/19/22 06:25 Hct 41.6 % (42.0-52.0) L 11/19/22 06:25 MCV 94.1 fL (80.0-100.0) 11/19/22 06:25 MCH 30.1 pg (25.0-34.0) 11/19/22 06:25 MCHC 32.0 g/dL (32.0-36.0) 11/19/22 06:25 RDW Std Deviation 42.8 fL (36.4-46.3) 11/19/22 06:25 RDW Coeff of Zoila 12.2 % (11.5-14.5) 11/19/22 06:25 Plt Count 336 K/uL (130-400) 11/19/22 06:25 MPV 10.9 fL (9.4-12.4) 11/19/22 06:25 Immature Gran % (Auto) 0.5 % 11/11/22 13:17 Neut % (Auto) 77.2 % 11/11/22 13:17 Lymph % (Auto) 10.8 % 11/11/22 13:17 [place] % (Auto) 8.5 % 11/11/22 13:17 Eos % (Auto) 2.5 % 11/11/22 13:17 Baso % (Auto) 0.5 % 11/11/22 13:17 Neut # (Auto) 7.03 K/uL (1.40-6.50) H 11/11/22 13:17 Lymph # (Auto) 0.99 K/uL (1.2-3.4) L 11/11/22 13:17 [place] # (Auto) 0.78 K/uL (0.11-0.59) H 11/11/22 13:17 Eos # (Auto) 0.23 K/uL (0-0.50) 11/11/22 13:17 Baso # (Auto) 0.05 K/uL (0-0.2) 11/11/22 13:17 Immature Gran # (Auto) 0.05 K/uL (0.01-0.20) 11/11/22 13:17 PT 34.7 Seconds (9.0-12.0) H 11/21/22 06:28 INR 3.5 (0.9-1.1) H 11/21/22 06:28 APTT 39.6 Seconds (21.0-31.0) H 11/11/22 13:17 PTT Ratio 1.4 11/11/22 13:17 Sodium 133 mmol/L (136-145) L 11/21/22 06:28 Potassium 4.6 mmol/L (3.5-5.1) 11/21/22 06:28 Chloride 95 mmol/L (98-107) L 11/21/22 06:28 Carbon Dioxide 30 mmol/L (21-32) 11/21/22 06:28 Anion Gap 8 (3-11) 11/21/22 06:28 BUN 25 mg/dl (6-23) H 11/21/22 06:28 Creatinine 0.97 mg/dl (0.6-1.4) 11/21/22 06:28 Est Cr Clr Drug Dosing 146.3 ml/min 11/21/22 06:28 Est GFR ( Amer) 97.9 ml/min 11/21/22 06:28 Est GFR (Non-Af Amer) 84.5 ml/min 11/21/22 06:28 BUN/Creatinine Ratio 25.8 (10-20) H 11/21/22 06:28 Glucose 124 mg/dl (70-99(Fasting)) H 11/21/22 06:28 POC Glucose 112 mg/dl (70-99) H 11/21/22 11:41 Estimat Average Glucose 134 mg/dl 11/11/22 13:17 Hemoglobin A1c 6.3 % (4.5-5.6) H 11/11/22 13:17 Calcium 8.7 mg/dl (8.6-10.3) 11/21/22 06:28 Phosphorus 2.7 mg/dl (2.5-4.9) 11/21/22 06:28 Magnesium 1.6 mg/dl (1.7-2.4) L 11/21/22 06:28 Total Bilirubin 0.7 mg/dl (0.2-1.0) 11/11/22 13:17 AST 26 U/L (13-39) 11/11/22 13:17 ALT 16 U/L (7-52) 11/11/22 13:17 Alkaline Phosphatase 125 U/L (34-104) H 11/11/22 13:17 Troponin I High Sens 6.7 pg/ml (0-20) 11/11/22 13:17 B-Natriuretic Peptide 132 pg/ml (0-100) H 11/11/22 13:17 Total Protein 7.6 gm/dl (6.0-8.3) 11/11/22 13:17 Albumin 3.3 gm/dl (3.4-5.0) L 11/11/22 13:17 Globulin 4.3 gm/dl (2.5-4.0) H 11/11/22 13:17 Albumin/Globulin Ratio 0.8 (0.9-2) L 11/11/22 13:17 Procalcitonin 2.68 ng/ml (0-0.5) H 11/17/22 06:05 Urine Color Yellow 11/11/22 15:19 Urine Appearance Clear (Clear) 11/11/22 15:19 Urine pH 5.0 (4.5-7.5) 11/11/22 15:19 Ur Specific [place] 1.007 (1.000-1.030) 11/11/22 15:19 Urine Protein Negative (Negative) 11/11/22 15:19 Urine Glucose (UA) Negative (Negative) 11/11/22 15:19 Urine Ketones Negative (Negative) 11/11/22 15:19 Urine Blood 3+ (Negative) H 11/11/22 15:19 Urine Nitrite Negative (Negative) 11/11/22 15:19 Urine Bilirubin Negative (Negative) 11/11/22 15:19 Urine Urobilinogen Negative (Negative) 11/11/22 15:19 Ur Leukocyte Esterase Negative (Negative) 11/11/22 15:19 Urine WBC (Auto) 1-5 /hpf (0-5) 11/11/22 15:19 Urine RBC (Auto) 0-4 /hpf (0-4) 11/11/22 15:19 U Hyaline Cast (Auto) 1-5 /lpf (0-5) 11/11/22 15:19 U Epithel Cells (Auto) 5-10 /lpf (0-5) H 11/11/22 15:19 Urine Bacteria (Auto) Negative (Negative) 11/11/22 15:19 Stl C. diff Tox B Gene Negative Cdiff Gene (Neg) 11/17/22 11:30 SARS-CoV-2 (PCR) NEGATIVE (Negative) 11/11/22 13:17 Influenza Type A (PCR) Negative (Neg) 11/11/22 13:17 Influenza Type B (PCR) Negative (Neg) 11/11/22 13:17 RSV (RT-PCR) Negative (Neg) 11/11/22 13:17 Impressions Chest X-Ray 11/12/22 08:00 SINGLE VIEW CHEST CLINICAL HISTORY: Dyspnea FINDINGS: An AP, portable, upright chest radiograph is compared to study dated 11/11/2022. The examination is degraded by portable technique and apical lordotic positioning. The heart is enlarged. There is pulmonary vascular congestion and interstitial edema. Atelectasis is noted at the lung bases. No large pleural effusion or pneumothorax is identified. The bony thorax is grossly intact. IMPRESSION: Cardiomegaly with evidence of congestive failure and pulmonary edema. This is similar to yesterday. ACT 112: Negative or not required by law. Electronically signed by: Elbert Wen M.D. 11/12/2022 8:43 AM Venous Doppler Study 11/14/22 11:27 ULTRASOUND RIGHT LOWER EXTREMITY VENOUS CLINICAL HISTORY: Right leg. COMPARISON STUDY: Bilateral lower extremity venous ultrasound dated 09/15/2010. TECHNIQUE: Real-time, grayscale, and color Doppler sonography of the deep veins of the right lower extremity was performed from the inguinal crease to the calf. Compression and augmentation were utilized. FINDINGS: There is no sonographic evidence of deep venous thrombosis identified in the right lower extremity. The common femoral, superficial femoral, and popliteal veins are patent and normally compressible. The greater saphenous vein and the profunda femoris vein at the junction with the common femoral vein are clear. The visualized calf veins are patent. IMPRESSION: There is no sonographic evidence of deep venous thrombosis identified in the right lower extremity. ACT 112: Negative or not required by law. Electronically signed by: Elbert Wen M.D. 11/14/2022 2:02 PM
[2022-11-21] MEDS: FUROSEMIDE 20 MG TAB PO SCH (17:36)
[2022-11-21] MEDS: ATORVASTATIN 40 MG TAB PO SCH (21:41)
[2022-11-21] MEDS: TRAMADOL 200 MG PO SCH (22:18)
[2022-11-22] MEDS: PANTOprazole 40 MG TAB PO SCH (05:37)
[2022-11-22] MEDS: SPIRONOLACTONE 25 MG TAB PO SCH (09:22)
[2022-11-22] MEDS: FUROSEMIDE 20 MG TAB PO SCH ×2 (09:22→17:36)
[2022-11-22] MEDS: ASPIRIN 81 MG ECTAB PO SCH (09:22)
[2022-11-22] MEDS: ENALAPRIL MALEATE 10 MG TAB PO SCH (09:23)
[2022-11-22] MEDS: METOPROLOL SUCC 25MG EXT REL TAB PO SCH ×2 (09:23→22:04)
[2022-11-22] MEDS: POT PHOSPHATE MONOBASIC W/ SOD TAB PO SCH ×4 (09:23→22:03)
[2022-11-22] MEDS: PSYLLIUM or GUAR GUM FIBER POWDER PACKET PO SCH (09:24)
[2022-11-22] MEDS: DICLOFENAC SOD 1% GEL 100 GM TUBE EXT SCH ×3 (09:24→22:03)
[2022-11-22 09:33] LABS: Basophils % (auto) 0.7 %; Eosinophils # (auto) 0.24 K/uL (0-0.50); Eosinophils % (auto) 1.7 %; Hematocrit (blood only) 45.5 % (42.0-52.0); Hemoglobin 14.7 g/dl (14.0-18.0); Immature Granulocytes # (auto) 0.61 K/uL (0.01-0.20); Immature Granulocytes % (auto) 4.2 %; Lymphocytes # (auto) 1.21 K/uL (1.2-3.4); Lymphocytes % (auto) 8.4 %; Mean Corpuscular Hemoglobin 30.1 pg (25.0-34.0); Mean Corpuscular Hgb Conc 32.3 g/dL (32.0-36.0); Mean Corpuscular Volume 93.2 fL (80.0-100.0); Mean Platelet Volume 10.4 fL (9.4-12.4); Monocytes # (auto) 1.67 K/uL (0.11-0.59); Monocytes % (auto) 11.6 %; Neutrophils # (auto) 10.59 K/uL (1.40-6.50); Neutrophils % (auto) 73.4 %; Platelet Count 450 K/uL (130-400); RDW Coefficient of Variation 12.4 % (11.5-14.5); RDW Standard Deviation 42.8 fL (36.4-46.3); Red Blood Count 4.88 M/uL (4.70-6.10); White Blood Count 14.42 K/ul (4.8-10.8)
--- NOTE | 2022-11-22 13:08 | Hospitalist Progress Note ---
Date of Service November 22, 2022 Assessment & Plan (1) Acute on chronic diastolic heart failure with preserved ejection fraction: Plan 62-year-old male with PMH of SLE, T2DM, ROHIT on CPAP, A-fib on Coumadin, HTN, morbid obesity presented to the ED 11/11 with complaint of worsening shortness of breath and lower extremity swelling since last 2 to 3 days prior to arrival. 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 He denies any new fever or chills or myalgia or increasing cough. He reports that he does not follow heart healthy diet, and has increased salty food/chips intake. But he does report that his water intake is modest which he refers to as " two 16 ounces bottles a day of water". He reports SOB w/ minimal exertion at presentation. He is being managed for the following: Acute on chronic respiratory failure Acute on chronic heart failure with preserved ejection fraction Presented to ED with worsening shortness of breath and lower extremity swelling [see above], not on any diuretics since 1.5 years at presentation. Admitting CXR personally reviewed; has pulmonary edema, at admission BLE with 2+ pitting edema. At admission, BNP 132, EKG with A-fib with controlled rate. Echo with preserved ejection fraction. Cardiology on board, metoprolol 75 Mg twice daily, Aldactone 25 Mg daily, was treated with IV diuretics.\\ DVT ruled out. Patient has total of -15 L since admission. Espinoza removed successful trial of void on 11/21. Currently on Lasix 20 mg twice daily. Monitoring strict ZARA's and daily weights Right elbow pain/swelling On 11/22; patient reported pain and swelling on right elbow. No overlying skin changes present. We will obtain x-ray; patient may require arthrocentesis. Will reach out to orthopedic. Chronic A-fib Supratherapeutic INR. INR reviewed; supratherapeutic; hold warfarin. Will resume once INR is within therapeutic range Bilateral knee pain Likely secondary to osteoarthritis Treated with Tylenol as needed. Continue using Voltaren gel He recently missed his scheduled b/l knee injection at Dr. Davis office, [facility] consulted, --s/p b/l knee injection 11/16. Pt reports improvement in his knee pain. Electrolyte abnormalities: Monitor and replete. Other chronic medical conditions: DM2, ROHIT [wears CPAP at home], HTN, HLD, GERD --- continue with home meds as able. Sliding scale insulin while in hospital. Disposition: PCP: Dr. Koch CODE STATUS: Full code VTE prophylaxis: On Coumadin Admission and Anticipated Discharge Date Admission Date: November 11, 2022 Subjective Patient has seen and examined at bedside. He is working with physical therapy; he is out of breath on exertion. He is voiding by himself without any issues. He reports right elbow pain and swelling. Denies any fever or chills. Review of Systems Review of Systems: All systems reviewed & are unremarkable except as noted in Subjective Physical Exam Physical Exam: GENERAL: Alert and oriented x3. NAD, on RA, Morbidly obese. HEENT: No pallor, no icterus. Pupils equal, round and reactive to light. Oral mucosa moist. NECK: No JVD, no neck masses. HEART: S1 and S2 heard. Regular rate and rhythm. No murmur, no gallop. RESPIRATORY SYSTEM: Normal AP diameter. No accessory muscle use. No wheezing, b/b crackles. Decreased breath sounds overall MSKswelling present over right elbow; ROM limited by pain. No overlying erythema or skin changes present. ABDOMEN: Soft, bowel sounds present, nontender, no distention. Lt abdomen w/ chronically indurated and raised areas w/ dry scales. CENTRAL NERVOUS SYSTEM: No facial droop. Speech is clear. Obeys simple commands. Moves extremities. EXTREMITIES: 2+ bilateral pitting edema present. No erythema seen. Results & Data Results & Data Vital Signs (Past 12 Hours) Vital Signs Temp Pulse Resp BP Pulse Ox O2 Del Method O2 Flow Rate 11/22/22 11:07 36.5 C 75 18 143/67 H 94 Nasal Cannula 1 11/22/22 06:17 36.7 C 81 20 109/67 93 Nasal Cannula 1 11/22/22 04:13 36.4 C L 88 20 112/66 96 Nasal Cannula 1 11/22/22 04:02 36.8 C 80 18 93/61 L 95 Nasal Cannula 1 11/22/22 03:33 Nasal Cannula 1 Laboratory Results Laboratory Results WBC 14.42 K/ul (4.8-10.8) H 11/22/22 09:01 RBC 4.88 M/uL (4.70-6.10) 11/22/22 09:01 Hgb 14.7 g/dl (14.0-18.0) 11/22/22 09:01 Hct 45.5 % (42.0-52.0) 11/22/22 09:01 MCV 93.2 fL (80.0-100.0) 11/22/22 09:01 MCH 30.1 pg (25.0-34.0) 11/22/22 09:01 MCHC 32.3 g/dL (32.0-36.0) 11/22/22 09:01 RDW Std Deviation 42.8 fL (36.4-46.3) 11/22/22 09:01 RDW Coeff of Zoila 12.4 % (11.5-14.5) 11/22/22 09: Plt Count 450 K/uL (130-400) H 11/22/22 09:01 MPV 10.4 fL (9.4-12.4) 11/22/22 09:01 Immature Gran % (Auto) 4.2 % 11/22/22 09:01 Neut % (Auto) 73.4 % 11/22/22 09:01 Lymph % (Auto) 8.4 % 11/22/22 09:01 [place] % (Auto) 11.6 % 11/22/22 09:01 Eos % (Auto) 1.7 % 11/22/22 09:01 Baso % (Auto) 0.7 % 11/22/22 09:01 Neut # (Auto) 10.59 K/uL (1.40-6.50) H 11/22/22 09:01 Lymph # (Auto) 1.21 K/uL (1.2-3.4) 11/22/22 09:01 [place] # (Auto) 1.67 K/uL (0.11-0.59) H 11/22/22 09:01 Eos # (Auto) 0.24 K/uL (0-0.50) 11/22/22 09:01 Baso # (Auto) 0.10 K/uL (0-0.2) 11/22/22 09:01 Immature Gran # (Auto) 0.61 K/uL (0.01-0.20) H 11/22/22 09:01 PT 34.7 Seconds (9.0-12.0) H 11/21/22 06:28 INR 3.5 (0.9-1.1) H 11/21/22 06:28 APTT 39.6 Seconds (21.0-31.0) H 11/11/22 13:17 PTT Ratio 1.4 11/11/22 13:17 Sodium 133 mmol/L (136-145) L 11/21/22 06:28 Potassium 4.6 mmol/L (3.5-5.1) 11/21/22 06:28 Chloride 95 mmol/L (98-107) L 11/21/22 06:28 Carbon Dioxide 30 mmol/L (21-32) 11/21/22 06:28 Anion Gap 8 (3-11) 11/21/22 06:28 BUN 25 mg/dl (6-23) H 11/21/22 06:28 Creatinine 0.97 mg/dl (0.6-1.4) 11/21/22 06:28 Est Cr Clr Drug Dosing 146.3 ml/min 11/21/22 06:28 Est GFR ( Amer) 97.9 ml/min 11/21/22 06:28 Est GFR (Non-Af Amer) 84.5 ml/min 11/21/22 06:28 BUN/Creatinine Ratio 25.8 (10-20) H 11/21/22 06:28 Glucose 124 mg/dl (70-99(Fasting)) H 11/21/22 06:28 POC Glucose 119 mg/dl (70-99) H 11/22/22 11:25 Estimat Average Glucose 134 mg/dl 11/11/22 13:17 Hemoglobin A1c 6.3 % (4.5-5.6) H 11/11/22 13:17 Calcium 8.7 mg/dl (8.6-10.3) 11/21/22 06:28 Phosphorus 2.7 mg/dl (2.5-4.9) 11/21/22 06:28 Magnesium 1.6 mg/dl (1.7-2.4) L 11/21/22 06:28 Total Bilirubin 0.7 mg/dl (0.2-1.0) 11/11/22 13:17 AST 26 U/L (13-39) 11/11/22 13:17 ALT 16 U/L (7-52) 11/11/22 13:17 Alkaline Phosphatase 125 U/L (34-104) H 11/11/22 13:17 Troponin I High Sens 6.7 pg/ml (0-20) 11/11/22 13:17 B-Natriuretic Peptide 132 pg/ml (0-100) H 11/11/22 13:17 Total Protein 7.6 gm/dl (6.0-8.3) 11/11/22 13:17 Albumin 3.3 gm/dl (3.4-5.0) L 11/11/22 13:17 Globulin 4.3 gm/dl (2.5-4.0) H 11/11/22 13:17 Albumin/Globulin Ratio 0.8 (0.9-2) L 11/11/22 13:17 Procalcitonin 2.68 ng/ml (0-0.5) H 11/17/22 06:05 Urine Color Yellow 11/11/22 15:19 Urine Appearance Clear (Clear) 11/11/22 15:19 Urine pH 5.0 (4.5-7.5) 11/11/22 15:19 Ur Specific [place] 1.007 (1.000-1.030) 11/11/22 15:19 Urine Protein Negative (Negative) 11/11/22 15:19 Urine Glucose (UA) Negative (Negative) 11/11/22 15:19 Urine Ketones Negative (Negative) 11/11/22 15:19 Urine Blood 3+ (Negative) H 11/11/22 15:19 Urine Nitrite Negative (Negative) 11/11/22 15:19 Urine Bilirubin Negative (Negative) 11/11/22 15:19 Urine Urobilinogen Negative (Negative) 11/11/22 15:19 Ur Leukocyte Esterase Negative (Negative) 11/11/22 15:19 Urine WBC (Auto) 1-5 /hpf (0-5) 11/11/22 15:19 Urine RBC (Auto) 0-4 /hpf (0-4) 11/11/22 15:19 U Hyaline Cast (Auto) 1-5 /lpf (0-5) 11/11/22 15:19 U Epithel Cells (Auto) 5-10 /lpf (0-5) H 11/11/22 15:19 Urine Bacteria (Auto) Negative (Negative) 11/11/22 15:19 Stl C. diff Tox B Gene Negative Cdiff Gene (Neg) 11/17/22 11:30 SARS-CoV-2 (PCR) NEGATIVE (Negative) 11/11/22 13:17 Influenza Type A (PCR) Negative (Neg) 11/11/22 13:17 Influenza Type B (PCR) Negative (Neg) 11/11/22 13:17 RSV (RT-PCR) Negative (Neg) 11/11/22 13:17 Impressions Chest X-Ray 11/12/22 08:00 SINGLE VIEW CHEST CLINICAL HISTORY: Dyspnea FINDINGS: An AP, portable, upright chest radiograph is compared to study dated 11/11/2022. The examination is degraded by portable technique and apical lordotic positioning. The heart is enlarged. There is pulmonary vascular congestion and interstitial edema. Atelectasis is noted at the lung bases. No large pleural effusion or pneumothorax is identified. The bony thorax is grossly intact. IMPRESSION: Cardiomegaly with evidence of congestive failure and pulmonary edema. This is similar to yesterday. ACT 112: Negative or not required by law. Electronically signed by: Elbert Wen M.D. 11/12/2022 8:43 AM Venous Doppler Study 11/14/22 11:27 ULTRASOUND RIGHT LOWER EXTREMITY VENOUS CLINICAL HISTORY: Right leg. COMPARISON STUDY: Bilateral lower extremity venous ultrasound dated 09/15/2010. TECHNIQUE: Real-time, grayscale, and color Doppler sonography of the deep veins of the right lower extremity was performed from the inguinal crease to the calf. Compression and augmentation were utilized. FINDINGS: There is no sonographic evidence of deep venous thrombosis identified in the right lower extremity. The common femoral, superficial femoral, and popliteal veins are patent and normally compressible. The greater saphenous vein and the profunda femoris vein at the junction with the common femoral vein are clear. The visualized calf veins are patent. IMPRESSION: There is no sonographic evidence of deep venous thrombosis identified in the right lower extremity. ACT 112: Negative or not required by law. Electronically signed by: Elbert Wen M.D. 11/14/2022 2:02 PM
--- NOTE | 2022-11-22 13:23 | XRay Report ---
XR elbow RT 2V HISTORY: 62 years-old Male Right elbow swelling acute pain and swelling of the right elbow COMPARISON: None TECHNIQUE: 2 views the right elbow FINDINGS: Mild to moderate dorsal soft tissue swelling. Small joint effusion. Moderate osteoarthritis. No acute fracture, dislocation or intra-articular loose body identified. IMPRESSION: 1. No acute fracture or dislocation identified. 2. Soft tissue swelling with small joint effusion. If there is clinical concern for an occult fractur e, follow-up radiographs recommended in 10-14 days. 3. Moderate osteoarthritis. ACT 112: Negative or not required by law. The above report was generated using voice recognition software. It may contain grammatical, syntax o r spelling errors. Electronically signed by: Fletcher Javier M.D. 11/22/2022 1:22 PM
[2022-11-22 15:53] LABS: Albumin Globulin Ratio 0.5 (0.9-2); Albumin Level 2.9 gm/dl (3.4-5.0); BUN Creatinine Ratio 27.5 (10-20); Bilirubin,Total 0.9 mg/dl (0.2-1.0); Calcium 9.2 mg/dl (8.6-10.3); Creatinine Clr Calc Pharmacy 129.4 ml/min; Est GFR (African American) 85.1 ml/min; Est GFR (Non-African American) 73.4 ml/min; Globulin 5.3 gm/dl (2.5-4.0); Total Protein 8.2 gm/dl (6.0-8.3)
[2022-11-22] MEDS: ATORVASTATIN 40 MG TAB PO SCH (22:04)
[2022-11-22] MEDS: TRAMADOL 200 MG PO SCH (22:46)
[2022-11-23] MEDS: PANTOprazole 40 MG TAB PO SCH (06:22)
[2022-11-23 08:24] LABS: Basophils # (auto) 0.08 K/uL (0-0.2); Basophils % (auto) 0.6 %; Eosinophils # (auto) 0.23 K/uL (0-0.50); Eosinophils % (auto) 1.8 %; Hematocrit (blood only) 44.8 % (42.0-52.0); Hemoglobin 14.1 g/dl (14.0-18.0); Immature Granulocytes # (auto) 0.57 K/uL (0.01-0.20); Immature Granulocytes % (auto) 4.6 %; Lymphocytes # (auto) 1.27 K/uL (1.2-3.4); Lymphocytes % (auto) 10.2 %; Mean Corpuscular Hgb Conc 31.5 g/dL (32.0-36.0); Mean Corpuscular Volume 95.3 fL (80.0-100.0); Mean Platelet Volume 10.5 fL (9.4-12.4); Monocytes # (auto) 1.78 K/uL (0.11-0.59); Monocytes % (auto) 14.3 %; Neutrophils # (auto) 8.56 K/uL (1.40-6.50); Neutrophils % (auto) 68.5 %; Platelet Count 436 K/uL (130-400); RDW Coefficient of Variation 12.4 % (11.5-14.5); White Blood Count 12.49 K/ul (4.8-10.8)
[2022-11-23 08:46] LABS: Albumin Globulin Ratio 0.5 (0.9-2); Albumin Level 2.8 gm/dl (3.4-5.0); BUN Creatinine Ratio 30.9 (10-20); Bilirubin,Total 0.8 mg/dl (0.2-1.0); C Reactive Protein 13.03 mg/dl (0-0.5); Calcium 9.2 mg/dl (8.6-10.3); Creatinine Clr Calc Pharmacy 114.7 ml/min; Est GFR (African American) 73.5 ml/min; Est GFR (Non-African American) 63.4 ml/min; Globulin 5.4 gm/dl (2.5-4.0); Potassium 4.8 mmol/L (3.5-5.1); Total Protein 8.2 gm/dl (6.0-8.3)
[2022-11-23 08:55] LABS: INR 2.5 (0.9-1.1); Prothrombin Time 25.2 Seconds (9.0-12.0)
[2022-11-23] MEDS: METOPROLOL SUCC 25MG EXT REL TAB PO SCH ×2 (10:29→22:24)
[2022-11-23] MEDS: SPIRONOLACTONE 25 MG TAB PO SCH (10:29)
[2022-11-23] MEDS: POT PHOSPHATE MONOBASIC W/ SOD TAB PO SCH ×4 (10:30→22:26)
[2022-11-23] MEDS: ASPIRIN 81 MG ECTAB PO SCH (10:30)
[2022-11-23] MEDS: DICLOFENAC SOD 1% GEL 100 GM TUBE EXT SCH ×3 (10:31→22:25)
[2022-11-23] MEDS: PSYLLIUM or GUAR GUM FIBER POWDER PACKET PO SCH (10:32)
--- NOTE | 2022-11-23 11:17 | Hospitalist Progress Note ---
Date of Service November 23, 2022 Assessment & Plan (1) Acute on chronic diastolic heart failure with preserved ejection fraction: Plan 62-year-old male with PMH of SLE, T2DM, ROHIT on CPAP, A-fib on Coumadin, HTN, morbid obesity presented to the ED 11/11 with complaint of worsening shortness of breath and lower extremity swelling since last 2 to 3 days prior to arrival. 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 He denies any new fever or chills or myalgia or increasing cough. He reports that he does not follow heart healthy diet, and has increased salty food/chips intake. But he does report that his water intake is modest which he refers to as " two 16 ounces bottles a day of water". He reports SOB w/ minimal exertion at presentation. He is being managed for the following: Acute on chronic respiratory failure Acute on chronic heart failure with preserved ejection fraction Presented to ED with worsening shortness of breath and lower extremity swelling [see above], not on any diuretics since 1.5 years at presentation. Admitting CXR personally reviewed; has pulmonary edema, at admission BLE with 2+ pitting edema. At admission, BNP 132, EKG with A-fib with controlled rate. Echo with preserved ejection fraction. Cardiology on board, metoprolol 75 Mg twice daily, Aldactone 25 Mg daily, was treated with IV diuretics.\\ DVT ruled out. Patient has total of -15 L since admission. Espinoza removed successful trial of void on 11/21. Morning labs reviewed; BUN and creatinine slightly elevated. Will decrease Lasix to 20 mg once a day given rising BUN and creatinine. Monitoring strict ZARA's and daily weights Right elbow pain/swelling On 11/22; patient reported pain and swelling on right elbow. No overlying skin changes present. X-ray of the elbow shows soft tissue swelling with a small joint effusion. Orthopedic informed; we will follow-up on recommendation Chronic A-fib Supratherapeutic INR. INR reviewed today; will resume warfarin from today. Bilateral knee pain Likely secondary to osteoarthritis Treated with Tylenol as needed. Continue using Voltaren gel He recently missed his scheduled b/l knee injection at Dr. Davis office, [facility] consulted, --s/p b/l knee injection 11/16. Pt reports improvement in his knee pain. Electrolyte abnormalities: Monitor and replete. Other chronic medical conditions: DM2, ROHIT [wears CPAP at home], HTN, HLD, GERD --- continue with home meds as able. Sliding scale insulin while in hospital. Disposition: PCP: Dr. Koch CODE STATUS: Full code VTE prophylaxis: On Coumadin Dispopatient awaiting placement to rehab. biodiesel product manager on board. Admission and Anticipated Discharge Date Admission Date: November 11, 2022 Subjective Patient seen and examined at bedside. He reports slight improvement in the right elbow pain. Reports that his shortness of breath has improved compared to previous days. Review of Systems Review of Systems: All systems reviewed & are unremarkable except as noted in Subjective Physical Exam Physical Exam: GENERAL: Alert and oriented x3. NAD, on RA, Morbidly obese. HEENT: No pallor, no icterus. Pupils equal, round and reactive to light. Oral mucosa moist. NECK: No JVD, no neck masses. HEART: S1 and S2 heard. Regular rate and rhythm. No murmur, no gallop. RESPIRATORY SYSTEM: Normal AP diameter. No accessory muscle use. No wheezing, b/b crackles. Decreased breath sounds overall MSKswelling present over right elbow; ROM limited by pain. No overlying erythema or skin changes present. ABDOMEN: Soft, bowel sounds present, nontender, no distention. Lt abdomen w/ chronically indurated and raised areas w/ dry scales. CENTRAL NERVOUS SYSTEM: No facial droop. Speech is clear. Obeys simple commands. Moves extremities. EXTREMITIES: 2+ bilateral pitting edema present. No erythema seen. Results & Data Results & Data Vital Signs (Past 12 Hours) Vital Signs Temp Pulse Pulse Resp BP Pulse Ox O2 Del Method 11/23/22 08:03 36.6 C 91 H 16 115/76 93 Nasal Cannula 11/23/22 03:40 36.4 C L 91 H 20 95/59 L 94 Nasal Cannula 11/23/22 00:10 97 H O2 Flow Rate 11/23/22 08:03 1 11/23/22 03:40 1 11/23/22 00:10 Laboratory Results Laboratory Results WBC 12.49 K/ul (4.8-10.8) H 11/23/22 07:41 RBC 4.70 M/uL (4.70-6.10) 11/23/22 07:41 Hgb 14.1 g/dl (14.0-18.0) 11/23/22 07:41 Hct 44.8 % (42.0-52.0) 11/23/22 07:41 MCV 95.3 fL (80.0-100.0) 11/23/22 07:41 MCH 30.0 pg (25.0-34.0) 11/23/22 07:41 MCHC 31.5 g/dL (32.0-36.0) L 11/23/22 07:41 RDW Std Deviation 44.0 fL (36.4-46.3) 11/23/22 07:41 RDW Coeff of Zoila 12.4 % (11.5-14.5) 11/23/22 07:41 Plt Count 436 K/uL (130-400) H 11/23/22 07:41 MPV 10.5 fL (9.4-12.4) 11/23/22 07:41 Immature Gran % (Auto) 4.6 % 11/23/22 07:41 Neut % (Auto) 68.5 % 11/23/22 07:41 Lymph % (Auto) 10.2 % 11/23/22 07:41 [place] % (Auto) 14.3 % 11/23/22 07:41 Eos % (Auto) 1.8 % 11/23/22 07:41 Baso % (Auto) 0.6 % 11/23/22 07:41 Neut # (Auto) 8.56 K/uL (1.40-6.50) H 11/23/22 07:41 Lymph # (Auto) 1.27 K/uL (1.2-3.4) 11/23/22 07:41 [place] # (Auto) 1.78 K/uL (0.11-0.59) H 11/23/22 07:41 Eos # (Auto) 0.23 K/uL (0-0.50) 11/23/22 07:41 Baso # (Auto) 0.08 K/uL (0-0.2) 11/23/22 07:41 Immature Gran # (Auto) 0.57 K/uL (0.01-0.20) H 11/23/22 07:41 ESR > 130 mm/hr (0-20) H 11/23/22 07:41 PT 25.2 Seconds (9.0-12.0) H 11/23/22 07:41 INR 2.5 (0.9-1.1) H 11/23/22 07:41 APTT 39.6 Seconds (21.0-31.0) H 11/11/22 13:17 PTT Ratio 1.4 11/11/22 13:17 Sodium 135 mmol/L (136-145) L 11/23/22 07:41 Potassium 4.8 mmol/L (3.5-5.1) 11/23/22 07:41 Chloride 96 mmol/L (98-107) L 11/23/22 07:41 Carbon Dioxide 32 mmol/L (21-32) 11/23/22 07:41 Anion Gap 7 (3-11) 11/23/22 07:41 BUN 38 mg/dl (6-23) H 11/23/22 07:41 Creatinine 1.23 mg/dl (0.6-1.4) 11/23/22 07:41 Est Cr Clr Drug Dosing 114.7 ml/min 11/23/22 07:41 Est GFR ( Amer) 73.5 ml/min 11/23/22 07:41 Est GFR (Non-Af Amer) 63.4 ml/min 11/23/22 07:41 BUN/Creatinine Ratio 30.9 (10-20) H 11/23/22 07:41 Glucose 105 mg/dl (70-99(Fasting)) H 11/23/22 07:41 POC Glucose 107 mg/dl (70-99) H 11/23/22 07:49 Estimat Average Glucose 134 mg/dl 11/11/22 13:17 Hemoglobin A1c 6.3 % (4.5-5.6) H 11/11/22 13:17 Calcium 9.2 mg/dl (8.6-10.3) 11/23/22 07:41 Phosphorus 2.7 mg/dl (2.5-4.9) 11/21/22 06:28 Magnesium 1.6 mg/dl (1.7-2.4) L 11/21/22 06:28 Total Bilirubin 0.8 mg/dl (0.2-1.0) 11/23/22 07:41 AST 25 U/L (13-39) 11/23/22 07:41 ALT 16 U/L (7-52) 11/23/22 07:41 Alkaline Phosphatase 91 U/L (34-104) 11/23/22 07:41 Troponin I High Sens 6.7 pg/ml (0-20) 11/11/22 13:17 C-Reactive Protein 13.03 mg/dl (0-0.5) H 11/23/22 07:41 B-Natriuretic Peptide 132 pg/ml (0-100) H 11/11/22 13:17 Total Protein 8.2 gm/dl (6.0-8.3) 11/23/22 07:41 Albumin 2.8 gm/dl (3.4-5.0) L 11/23/22 07:41 Globulin 5.4 gm/dl (2.5-4.0) H 11/23/22 07:41 Albumin/Globulin Ratio 0.5 (0.9-2) L 11/23/22 07:41 Procalcitonin 2.68 ng/ml (0-0.5) H 11/17/22 06:05 Urine Color Yellow 11/11/22 15:19 Urine Appearance Clear (Clear) 11/11/22 15:19 Urine pH 5.0 (4.5-7.5) 11/11/22 15:19 Ur Specific [place] 1.007 (1.000-1.030) 11/11/22 15:19 Urine Protein Negative (Negative) 11/11/22 15:19 Urine Glucose (UA) Negative (Negative) 11/11/22 15:19 Urine Ketones Negative (Negative) 11/11/22 15:19 Urine Blood 3+ (Negative) H 11/11/22 15:19 Urine Nitrite Negative (Negative) 11/11/22 15:19 Urine Bilirubin Negative (Negative) 11/11/22 15:19 Urine Urobilinogen Negative (Negative) 11/11/22 15:19 Ur Leukocyte Esterase Negative (Negative) 11/11/22 15:19 Urine WBC (Auto) 1-5 /hpf (0-5) 11/11/22 15:19 Urine RBC (Auto) 0-4 /hpf (0-4) 11/11/22 15:19 U Hyaline Cast (Auto) 1-5 /lpf (0-5) 11/11/22 15:19 U Epithel Cells (Auto) 5-10 /lpf (0-5) H 11/11/22 15:19 Urine Bacteria (Auto) Negative (Negative) 11/11/22 15:19 Stl C. diff Tox B Gene Negative Cdiff Gene (Neg) 11/17/22 11:30 SARS-CoV-2 (PCR) NEGATIVE (Negative) 11/11/22 13:17 Influenza Type A (PCR) Negative (Neg) 11/11/22 13:17 Influenza Type B (PCR) Negative (Neg) 11/11/22 13:17 RSV (RT-PCR) Negative (Neg) 11/11/22 13:17 Impressions Chest X-Ray 11/12/22 08:00 SINGLE VIEW CHEST CLINICAL HISTORY: Dyspnea FINDINGS: An AP, portable, upright chest radiograph is compared to study dated 11/11/2022. The examination is degraded by portable technique and apical lordotic positioning. The heart is enlarged. There is pulmonary vascular congestion and interstitial edema. Atelectasis is noted at the lung bases. No large pleural effusion or pneumothorax is identified. The bony thorax is grossly intact. IMPRESSION: Cardiomegaly with evidence of congestive failure and pulmonary edema. This is similar to yesterday. ACT 112: Negative or not required by law. Electronically signed by: Elbert Wen M.D. 11/12/2022 8:43 AM Venous Doppler Study 11/14/22 11:27 ULTRASOUND RIGHT LOWER EXTREMITY VENOUS CLINICAL HISTORY: Right leg. COMPARISON STUDY: Bilateral lower extremity venous ultrasound dated 09/15/2010. TECHNIQUE: Real-time, grayscale, and color Doppler sonography of the deep veins of the right lower extremity was performed from the inguinal crease to the calf. Compression and augmentation were utilized. FINDINGS: There is no sonographic evidence of deep venous thrombosis identified in the right lower extremity. The common femoral, superficial femoral, and popliteal veins are patent and normally compressible. The greater saphenous vein and the profunda femoris vein at the junction with the common femoral vein are clear. The visualized calf veins are patent. IMPRESSION: There is no sonographic evidence of deep venous thrombosis iden tified in the right lower extremity. ACT 112: Negative or not required by law. Electronically signed by: Elbert Wen M.D. 11/14/2022 2:02 PM Elbow X-Ray 11/22/22 11:29 XR elbow RT 2V HISTORY: 62 years-old Male Right elbow swelling acute pain and swelling of the right elbow COMPARISON: None TECHNIQUE: 2 views the right elbow FINDINGS: Mild to moderate dorsal soft tissue swelling. Small joint effusion. Moderate osteoarthritis. No acute fracture, dislocation or intra-articular loose body identified. IMPRESSION: 1. No acute fracture or dislocation identified. 2. Soft tissue swelling with small joint effusion. If there is clinical concern for an occult fracture, follow-up radiographs recommended in 10-14 days. 3. Moderate osteoarthritis. ACT 112: Negative or not required by law. The above report was generated using voice recognition software. It may contain grammatical, syntax or spelling errors. Electronically signed by: Fletcher Javier M.D. 11/22/2022 1:22 PM
[2022-11-23] MEDS: FUROSEMIDE 20 MG TAB PO SCH (11:36)
[2022-11-23 11:51] LABS: Uric Acid 10.2 mg/dl (2.6-7.2)
--- NOTE | 2022-11-23 12:04 | Communication Note ---
Date of Service: November 23, 2022 [facility] for right elbow discomfort. Patient states that he noticed some mild increased swelling and pain over the last day or so with his right elbow. He st ates that he is still able to move the elbow but does have some pain with range of motion. Denies fevers or chills. Right elbow with notable swelling compared to the left. He has pain on palpation over the olecranon process and general area. There is no erythema. There is no overt heat noted on the elbow at this time. No open wounds no drainage. I can take the patient through gentle range of motion of the right elbow without difficulty. He does have pain over the olecranon bursa area. Denies any pain in the area of the antecubital fossa and denies deep elbow pain. I cannot appreciate any fluid collections on exam. No gross motor or sensory loss seen at this time. X-rays reviewed of his right elbow. No fractures or dislocations. Small joint effusion noted per radiology. Right olecranon bursitis. Ultrasound of the elbow may show a fluid collection level at the olecranon bursa not appreciated on exam. It does not appear there is any fluid collection for aspiration and I do not believe he would need an aspiration of his elbow joint. This does not look infectious to me at this time although his white count is somewhat elevated and has been off and on during his stay. Elevated ESR and CRP are noted but not sure this would be coming from his elbow. He is currently on an NSaid TID. Would consider warm moist K-pad to right elbow. Gentle range of motion of the right elbow. Derrick wrap to right elbow for compression. I will discuss the case with Dr. Stevens who is on- call for the weekend and can follow up with the patient over the weekend.
[2022-11-23] MEDS: ENALAPRIL MALEATE 10 MG TAB PO SCH (12:25)
[2022-11-23] MEDS: WARFARIN SOD 7.5 MG TAB PO SCH (17:44)
[2022-11-23] MEDS: ATORVASTATIN 40 MG TAB PO SCH (22:24)
[2022-11-23] MEDS: TRAMADOL 200 MG PO SCH (22:25)
[2022-11-24] MEDS: PANTOprazole 40 MG TAB PO SCH (05:57)
[2022-11-24 08:04] LABS: Eosinophils # (auto) 0.18 K/uL (0-0.50); Eosinophils % (auto) 1.8 %; Hematocrit (blood only) 45.2 % (42.0-52.0); Hemoglobin 14.4 g/dl (14.0-18.0); Immature Granulocytes # (auto) 0.47 K/uL (0.01-0.20); Immature Granulocytes % (auto) 4.8 %; Lymphocytes # (auto) 1.22 K/uL (1.2-3.4); Lymphocytes % (auto) 12.4 %; Mean Corpuscular Hemoglobin 30.1 pg (25.0-34.0); Mean Corpuscular Hgb Conc 31.9 g/dL (32.0-36.0); Mean Corpuscular Volume 94.4 fL (80.0-100.0); Mean Platelet Volume 10.5 fL (9.4-12.4); Monocytes # (auto) 1.28 K/uL (0.11-0.59); Neutrophils # (auto) 6.58 K/uL (1.40-6.50); Platelet Count 426 K/uL (130-400); RDW Coefficient of Variation 12.5 % (11.5-14.5); RDW Standard Deviation 43.6 fL (36.4-46.3); Red Blood Count 4.79 M/uL (4.70-6.10); White Blood Count 9.83 K/ul (4.8-10.8)
[2022-11-24 08:19] LABS: Albumin Globulin Ratio 0.5 (0.9-2); Albumin Level 2.8 gm/dl (3.4-5.0); BUN Creatinine Ratio 33.6 (10-20); Bilirubin,Total 0.8 mg/dl (0.2-1.0); Calcium 9.3 mg/dl (8.6-10.3); Creatinine Clr Calc Pharmacy 116.9 ml/min; Est GFR (African American) 76.5 ml/min; Globulin 5.2 gm/dl (2.5-4.0); Potassium 4.8 mmol/L (3.5-5.1)
[2022-11-24] MEDS: DICLOFENAC SOD 1% GEL 100 GM TUBE EXT SCH ×3 (08:38→22:23)
[2022-11-24] MEDS: ASPIRIN 81 MG ECTAB PO SCH (08:38)
[2022-11-24] MEDS: ENALAPRIL MALEATE 10 MG TAB PO SCH (08:38)
[2022-11-24] MEDS: POT PHOSPHATE MONOBASIC W/ SOD TAB PO SCH ×4 (08:39→22:23)
[2022-11-24] MEDS: SPIRONOLACTONE 25 MG TAB PO SCH (08:39)
[2022-11-24] MEDS: METOPROLOL SUCC 25MG EXT REL TAB PO SCH ×2 (08:39→22:22)
[2022-11-24] MEDS: PSYLLIUM or GUAR GUM FIBER POWDER PACKET PO SCH (08:39)
[2022-11-24] MEDS ORDERED: NAPROXEN 250 MG TAB PO SCH (09:00)
[2022-11-24] MEDS ORDERED: FUROSEMIDE 20 MG TAB PO SCH (09:00)
[2022-11-24] MEDS ORDERED: COLCHICINE 0.6 MG TAB PO ONE (09:45)
--- NOTE | 2022-11-24 10:52 | Hospitalist Progress Note ---
Date of Service November 24, 2022 Assessment & Plan (1) Acute on chronic diastolic heart failure with preserved ejection fraction: Plan 62-year-old male with PMH of SLE, T2DM, ROHIT on CPAP, A-fib on Coumadin, HTN, morbid obesity presented to the ED 11/11 with complaint of worsening shortness of breath and lower extremity swelling since last 2 to 3 days prior to arrival. 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 He denies any new fever or chills or myalgia or increasing cough. He reports that he does not follow heart healthy diet, and has increased salty food/chips intake. But he does report that his water intake is modest which he refers to as " two 16 ounces bottles a day of water". He reports SOB w/ minimal exertion at presentation. He is being managed for the following: Acute on chronic respiratory failure Acute on chronic heart failure with preserved ejection fraction Presented to ED with worsening shortness of breath and lower extremity swelling [see above], not on any diuretics since 1.5 years at presentation. Admitting CXR personally reviewed; has pulmonary edema, at admission BLE with 2+ pitting edema. At admission, BNP 132, EKG with A-fib with controlled rate. Echo with preserved ejection fraction. Cardiology on board, metoprolol 75 Mg twice daily, Aldactone 25 Mg daily, was treated with IV diuretics.\\ DVT ruled out. Patient has total of -15 L since admission. Espinoza removed successful trial of void on 11/21. Morning labs reviewed; BUN and creatinine slightly elevated. Continue on Lasix 20 mg daily. Monitoring strict ZARA's and daily weights Right elbow pain/swelling Possible gout flare On 11/22; patient reported pain and swelling on right elbow. No overlying skin changes present. X-ray of the elbow personally reviewed: soft tissue swelling with a small joint effusion. Discussed with orthopedics; patient likely due to arthritis. Uric acid significantly elevated Patient recently started on diuretics; will treat empirically for gout flare with colchicine 1.2 mg today and 0.6 mg twice daily from tomorrow. Chronic A-fib Supratherapeutic INR. INR reviewed today; continue on warfarin. Bilateral knee pain Likely secondary to osteoarthritis Treated with Tylenol as needed. Continue using Voltaren gel He recently missed his scheduled b/l knee injection at Dr. Davis office, [facility]OC consulted, --s/p b/l knee injection 11/16. Pt reports improvement in his knee pain. Electrolyte abnormalities: Monitor and replete. Other chronic medical conditions: DM2, ROHIT [wears CPAP at home], HTN, HLD, GERD --- continue with home meds as able. Sliding scale insulin while in hospital. Disposition: PCP: Dr. Koch CODE STATUS: Full code VTE prophylaxis: On Coumadin Dispopatient awaiting placement to rehab. 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 Admission and Anticipated Discharge Date Admission Date: November 11, 2022 Subjective Patient seen and examined at bedside. He is lying on the bed comfortably. Reports that he is still has ongoing right elbow pain. He is saturating well on room air. Physical Exam Physical Exam: GENERAL: Alert and oriented x3. NAD, on RA, Morbidly obese. HEENT: No pallor, no icterus. Pupils equal, round and reactive to light. Oral mucosa moist. NECK: No JVD, no neck masses. HEART: S1 and S2 heard. Regular rate and rhythm. No murmur, no gallop. RESPIRATORY SYSTEM: Normal AP diameter. No accessory muscle use. No wheezing, b/b crackles. Decreased breath sounds overall MSKswelling present over right elbow; ROM limited by pain. No overlying erythema or skin changes present. ABDOMEN: Soft, bowel sounds present, nontender, no distention. Lt abdomen w/ chronically indurated and raised areas w/ dry scales. CENTRAL NERVOUS SYSTEM: No facial droop. Speech is clear. Obeys simple commands. Moves extremities. EXTREMITIES: 2+ bilateral pitting edema present. No erythema seen. Results & Data Results & Data Vital Signs (Past 12 Hours) Vital Signs Temp Pulse Pulse Resp BP Pulse Ox O2 Del Method 11/24/22 07:32 36.5 C 91 H 18 144/72 H 92 Room Air 11/24/22 02:00 36.4 C L 82 18 123/67 90 Room Air 11/24/22 03:18 100 H 11/24/22 03:18 Room Air 11/23/22 23:02 36.5 C 75 18 101/65 92 Room Air Laboratory Results Laboratory Results WBC 9.83 K/ul (4.8-10.8) 11/24/22 07:21 RBC 4.79 M/uL (4.70-6.10) 11/24/22 07:21 Hgb 14.4 g/dl (14.0-18.0) 11/24/22 07:21 Hct 45.2 % (42.0-52.0) 11/24/22 07:21 MCV 94.4 fL (80.0-100.0) 11/24/22 07:21 MCH 30.1 pg (25.0-34.0) 11/24/22 07: MCHC 31.9 g/dL (32.0-36.0) L 11/24/22 07: RDW Std Deviation 43.6 fL (36.4-46.3) 11/24/22 07: RDW Coeff of Zoila 12.5 % (11.5-14.5) 11/24/22 07: Plt Count 426 K/uL (130-400) H 11/24/22 07:21 MPV 10.5 fL (9.4-12.4) 11/24/22 07:21 Immature Gran % (Auto) 4.8 % 11/24/22 07:21 Neut % (Auto) 67.0 % 11/24/22 07:21 Lymph % (Auto) 12.4 % 11/24/22 07:21 [place] % (Auto) 13.0 % 11/24/22 07:21 Eos % (Auto) 1.8 % 11/24/22 07:21 Baso % (Auto) 1.0 % 11/24/22 07:21 Neut # (Auto) 6.58 K/uL (1.40-6.50) H 11/24/22 07:21 Lymph # (Auto) 1.22 K/uL (1.2-3.4) 11/24/22 07:21 [place] # (Auto) 1.28 K/uL (0.11-0.59) H 11/24/22 07:21 Eos # (Auto) 0.18 K/uL (0-0.50) 11/24/22 07:21 Baso # (Auto) 0.10 K/uL (0-0.2) 11/24/22 07:21 Immature Gran # (Auto) 0.47 K/uL (0.01-0.20) H 11/24/22 07:21 ESR > 130 mm/hr (0-20) H 11/23/22 07:41 PT 25.2 Seconds (9.0-12.0) H 11/23/22 07:41 INR 2.5 (0.9-1.1) H 11/23/22 07:41 APTT 39.6 Seconds (21.0-31.0) H 11/11/22 13:17 PTT Ratio 1.4 11/11/22 13:17 Sodium 135 mmol/L (136-145) L 11/24/22 07:21 Potassium 4.8 mmol/L (3.5-5.1) 11/24/22 07:21 Chloride 98 mmol/L (98-107) 11/24/22 07:21 Carbon Dioxide 29 mmol/L (21-32) 11/24/22 07:21 Anion Gap 8 (3-11) 11/24/22 07:21 BUN 40 mg/dl (6-23) H 11/24/22 07:21 Creatinine 1.19 mg/dl (0.6-1.4) 11/24/22 07:21 Est Cr Clr Drug Dosing 116.9 ml/min 11/24/22 07:21 Est GFR ( Amer) 76.5 ml/min 11/24/22 07:21 Est GFR (Non-Af Amer) 66.0 ml/min 11/24/22 07:21 BUN/Creatinine Ratio 33.6 (10-20) H 11/24/22 07:21 Glucose 102 mg/dl (70-99(Fasting)) H 11/24/22 07:21 POC Glucose 104 mg/dl (70-99) H 11/24/22 11:12 Estimat Average Glucose 134 mg/dl 11/11/22 13:17 Hemoglobin A1c 6.3 % (4.5-5.6) H 11/11/22 13:17 Uric Acid Cancelled 11/23/22 07:57 Calcium 9.3 mg/dl (8.6-10.3) 11/24/22 07:21 Phosphorus 2.7 mg/dl (2.5-4.9) 11/21/22 06:28 Magnesium 1.6 mg/dl (1.7-2.4) L 11/21/22 06:28 Total Bilirubin 0.8 mg/dl (0.2-1.0) 11/24/22 07:21 AST 30 U/L (13-39) 11/24/22 07:21 ALT 17 U/L (7-52) 11/24/22 07:21 Alkaline Phosphatase 92 U/L (34-104) 11/24/22 07:21 Troponin I High Sens 6.7 pg/ml (0-20) 11/11/22 13:17 C-Reactive Protein 13.03 mg/dl (0-0.5) H 11/23/22 07:41 B-Natriuretic Peptide 132 pg/ml (0-100) H 11/11/22 13:17 Total Protein 8.0 gm/dl (6.0-8.3) 11/24/22 07:21 Albumin 2.8 gm/dl (3.4-5.0) L 11/24/22 07:21 Globulin 5.2 gm/dl (2.5-4.0) H 11/24/22 07:21 Albumin/Globulin Ratio 0.5 (0.9-2) L 11/24/22 07:21 Procalcitonin 2.68 ng/ml (0-0.5) H 11/17/22 06:05 Urine Color Yellow 11/11/22 15:19 Urine Appearance Clear (Clear) 11/11/22 15:19 Urine pH 5.0 (4.5-7.5) 11/11/22 15:19 Ur Specific [place] 1.007 (1.000-1.030) 11/11/22 15:19 Urine Protein Negative (Negative) 11/11/22 15:19 Urine Glucose (UA) Negative (Negative) 11/11/22 15:19 Urine Ketones Negative (Negative) 11/11/22 15:19 Urine Blood 3+ (Negative) H 11/11/22 15:19 Urine Nitrite Negative (Negative) 11/11/22 15:19 Urine Bilirubin Negative (Negative) 11/11/22 15:19 Urine Urobilinogen Negative (Negative) 11/11/22 15:19 Ur Leukocyte Esterase Negative (Negative) 11/11/22 15:19 Urine WBC (Auto) 1-5 /hpf (0-5) 11/11/22 15:19 Urine RBC (Auto) 0-4 /hpf (0-4) 11/11/22 15:19 U Hyaline Cast (Auto) 1-5 /lpf (0-5) 11/11/22 15:19 U Epithel Cells (Auto) 5-10 /lpf (0-5) H 11/11/22 15:19 Urine Bacteria (Auto) Negative (Negative) 11/11/22 15:19 Stl C. diff Tox B Gene Negative Cdiff Gene (Neg) 11/17/22 11:30 SARS-CoV-2 (PCR) NEGATIVE (Negative) 11/11/22 13:17 Influenza Type A (PCR) Negative (Neg) 11/11/22 13:17 Influenza Type B (PCR) Negative (Neg) 11/11/22 13:17 RSV (RT-PCR) Negative (Neg) 11/11/22 13:17 Impressions Chest X-Ray 11/12/22 08:00 SINGLE VIEW CHEST CLINICAL HISTORY: Dyspnea FINDINGS: An AP, portable, upright chest radiograph is compared to study dated 11/11/2022. The examination is degraded by portable technique and apical lordotic positioning. The heart is enlarged. There is pulmonary vascular congestion and interstitial edema. Atelectasis is noted at the lung bases. No large pleural effusion or pneumothorax is identified. The bony thorax is grossly intact. IMPRESSION: Cardiomegaly with evidence of congestive failure and pulmonary edema. This is similar to yesterday. ACT 112: Negative or not required by law. Electronically signed by: Elbert Wen M.D. 11/12/2022 8:43 AM Venous Doppler Study 11/14/22 11:27 ULTRASOUND RIGHT LOWER EXTREMITY VENOUS CLINICAL HISTORY: Right leg. COMPARISON STUDY: Bilateral lower extremity venous ultrasound dated 09/15/2010. TECHNIQUE: Real-time, grayscale, and color Doppler sonography of the deep veins of the right lower extremity was performed from the inguinal crease to the calf. Compression and augmentation were utilized. FINDINGS: There is no sonographic evidence of deep venous thrombosis identified in the right lower extremity. The common femoral, superficial femoral, and popliteal veins are patent and normally compressible. The greater saphenous vein and the profunda femoris vein at the junction with the common femoral vein are clear. The visualized calf veins are patent. IMPRESSION: There is no sonographic evidence of deep venous thrombosis identified in the right lower extremity. ACT 112: Negative or not required by law. Electronically signed by: Elbert Wen M.D. 11/14/2022 2:02 PM Elbow X-Ray 11/22/22 11:29 XR elbow RT 2V HISTORY: 62 years-old Male Right elbow swelling acute pain and swelling of the right elbow COMPARISON: None TECHNIQUE: 2 views the right elbow FINDINGS: Mild to moderate dorsal soft tissue swelling. Small joint effusion. Moderate osteoarthritis. No acute fracture, dislocation or intra-articular loose body identified. IMPRESSION: 1. No acute fracture or dislocation identified. 2. Soft tissue swelling with small joint effusion. If there is clinical concern for an occult fracture, follow-up radiographs recommended in 10-14 days. 3. Moderate osteoarthritis. ACT 112: Negative or not required by law. The above report was generated using voice recognition software. It may contain grammatical, syntax or spelling errors. Electronically signed by: Fletcher Javier M.D. 11/22/2022 1:22 PM
--- NOTE | 2022-11-24 12:21 | Progress Notes ---
SUBJECTIVE: The patient is seen in reevaluation, request of hospitalist service. He notes complaints of right elbow pain and swelling began over the past few days. We have seen him previously and recently in the hospital with recent consultation on 11/16/2022 for injection into his knees for arthritis. PHYSICAL EXAMINATION: Right elbow exam, he has a decreased range of motion of the elbow in both flexion and extension. He has mild pain with range of motion of the elbow. I do not detect any fluctuance over the olecranon bursa and he has no olecranon bursitis, no collection. I do not detect any abscess. He has mild diffuse soft tissue swelling over the posterolateral elbow. Although it was mildly tender diffusely. No evidence of erythema, no evidence of infection. Xrays: 3 views of the right elbow did show moderate arthritic changes, does show mild soft tissue swelling. ASSESSMENT: 1. Exacerbation of right elbow arthritis. 2. No evidence of olecranon bursitis. PLAN: I do feel this represents exacerbation of arthritis in the elbow. I do not see any acute surgical conditions, he has no olecranon bursitis. No evidence of obvious infection in the elbow. Recommendations, symptomatic treatment for arthritis. He may use Tylenol on an as needed basis, may also use Voltaren gel, which he has been using for his knees. I also recommend a soft elbow sleeve as an option for him for the elbow. Orthopedics will sign off. Please call if you have any further questions. Job ID: [id number] MTDD
[2022-11-24] MEDS: WARFARIN SOD 1.25 MG TAB PO SCH (16:05)
[2022-11-24] MEDS: TRAMADOL 200 MG PO SCH (22:23)
[2022-11-24] MEDS: ATORVASTATIN 40 MG TAB PO SCH (22:23)
[2022-11-25] MEDS: PANTOprazole 40 MG TAB PO SCH (05:34)
[2022-11-25 07:13] LABS: Basophils # (auto) 0.09 K/uL (0-0.2); Basophils % (auto) 1.1 %; Eosinophils # (auto) 0.17 K/uL (0-0.50); Eosinophils % (auto) 2.1 %; Hematocrit (blood only) 45.4 % (42.0-52.0); Hemoglobin 14.6 g/dl (14.0-18.0); Immature Granulocytes # (auto) 0.33 K/uL (0.01-0.20); Lymphocytes # (auto) 1.25 K/uL (1.2-3.4); Lymphocytes % (auto) 15.2 %; Mean Corpuscular Hemoglobin 29.9 pg (25.0-34.0); Mean Corpuscular Hgb Conc 32.2 g/dL (32.0-36.0); Mean Corpuscular Volume 92.8 fL (80.0-100.0); Mean Platelet Volume 10.3 fL (9.4-12.4); Monocytes # (auto) 1.04 K/uL (0.11-0.59); Monocytes % (auto) 12.7 %; Neutrophils # (auto) 5.33 K/uL (1.40-6.50); Neutrophils % (auto) 64.9 %; Platelet Count 397 K/uL (130-400); RDW Coefficient of Variation 12.6 % (11.5-14.5); RDW Standard Deviation 42.8 fL (36.4-46.3); Red Blood Count 4.89 M/uL (4.70-6.10); White Blood Count 8.21 K/ul (4.8-10.8)
[2022-11-25 07:31] LABS: Albumin Globulin Ratio 0.5 (0.9-2); Albumin Level 2.8 gm/dl (3.4-5.0); BUN Creatinine Ratio 32.1 (10-20); Bilirubin,Total 0.7 mg/dl (0.2-1.0); Calcium 9.3 mg/dl (8.6-10.3); Creatinine Clr Calc Pharmacy 127.5 ml/min; Est GFR (African American) 85.1 ml/min; Est GFR (Non-African American) 73.4 ml/min; Globulin 5.3 gm/dl (2.5-4.0); Potassium 4.8 mmol/L (3.5-5.1); Total Protein 8.1 gm/dl (6.0-8.3)
--- NOTE | 2022-11-25 07:43 | Communication Note ---
Date of Service: November 25, 2022 Uric acid reviewed, which is 10.2. Pain in elbow could represent a gout flare. I agree with empiric treatment for gout.
[2022-11-25 07:46] LABS: INR 2.2 (0.9-1.1); Prothrombin Time 22.4 Seconds (9.0-12.0)
[2022-11-25] MEDS: ASPIRIN 81 MG ECTAB PO SCH (08:43)
[2022-11-25] MEDS: DICLOFENAC SOD 1% GEL 100 GM TUBE EXT SCH ×3 (08:43→19:30)
[2022-11-25] MEDS: COLCHICINE 0.6 MG TAB PO SCH ×2 (08:43→19:30)
[2022-11-25] MEDS: PSYLLIUM or GUAR GUM FIBER POWDER PACKET PO SCH (08:43)
[2022-11-25] MEDS: SPIRONOLACTONE 25 MG TAB PO SCH (08:44)
[2022-11-25] MEDS: METOPROLOL SUCC 25MG EXT REL TAB PO SCH ×2 (08:44→19:31)
[2022-11-25] MEDS: POT PHOSPHATE MONOBASIC W/ SOD TAB PO SCH ×4 (08:44→19:29)
[2022-11-25] MEDS: ENALAPRIL MALEATE 10 MG TAB PO SCH (08:44)
--- NOTE | 2022-11-25 12:18 | Hospitalist Progress Note ---
Date of Service November 25, 2022 Assessment & Plan (1) Acute on chronic diastolic heart failure with preserved ejection fraction: Plan 62-year-old male with PMH of SLE, T2DM, ROHIT on CPAP, A-fib on Coumadin, HTN, morbid obesity presented to the ED 11/11 with complaint of worsening shortness of breath and lower extremity swelling since last 2 to 3 days prior to arrival. 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 He denies any new fever or chills or myalgia or increasing cough. He reports that he does not follow heart healthy diet, and has increased salty food/chips intake. But he does report that his water intake is modest which he refers to as " two 16 ounces bottles a day of water". He reports SOB w/ minimal exertion at presentation. He is being managed for the following: Acute on chronic respiratory failure Acute on chronic heart failure with preserved ejection fraction Presented to ED with worsening shortness of breath and lower extremity swelling [see above], not on any diuretics since 1.5 years at presentation. Admitting CXR personally reviewed; has pulmonary edema, at admission BLE with 2+ pitting edema. At admission, BNP 132, EKG with A-fib with controlled rate. Echo with preserved ejection fraction. Cardiology on board, metoprolol 75 Mg twice daily, Aldactone 25 Mg daily, was treated with IV diuretics.\\ DVT ruled out. Patient has total of -15 L since admission. Espinoza removed successful trial of void on 11/21. Morning labs reviewed; BUN and creatinine slightly elevated. Restarted Lasix 20 mg twice daily. Right elbow pain/swelling Possible gout flare On 11/22; patient reported pain and swelling on right elbow. No overlying skin changes present. X-ray of the elbow personally reviewed: soft tissue swelling with a small joint effusion. Discussed with orthopedics; patient likely due to arthritis. Uric acid significantly elevated; will start on allopurinol after patient's acute flare is improved. Patient recently started on diuretics; will treat empirically for gout flare ; currently on colchicine 0.6 mg twice daily Chronic A-fib Supratherapeutic INR. INR reviewed today; continue on warfarin. Bilateral knee pain Likely secondary to osteoarthritis Treated with Tylenol as needed. Continue using Voltaren gel He recently missed his scheduled b/l knee injection at Dr. Davis office, [facility] consulted, --s/p b/l knee injection 11/16. Pt reports improvement in his knee pain. Electrolyte abnormalities: Monitor and replete. Other chronic medical conditions: DM2, ROHIT [wears CPAP at home], HTN, HLD, GERD --- continue with home meds as able. Sliding scale insulin while in hospital. Disposition: PCP: Dr. Koch CODE STATUS: Full code VTE prophylaxis: On Coumadin Dispopatient awaiting placement to rehab. 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 Admission and Anticipated Discharge Date Admission Date: November 11, 2022 Subjective Patient seen and examined at bedside. He is lying on the bed comfortably; not in any distress. Review of Systems Review of Systems: All systems reviewed & are unremarkable except as noted in Subjective Physical Exam Physical Exam: GENERAL: Alert and oriented x3. NAD, on RA, Morbidly obese. HEENT: No pallor, no icterus. Pupils equal, round and reactive to light. Oral mucosa moist. NECK: No JVD, no neck masses. HEART: S1 and S2 heard. Regular rate and rhythm. No murmur, no gallop. RESPIRATORY SYSTEM: Normal AP diameter. No accessory muscle use. No wheezing, b/b crackles. Decreased breath sounds overall MSKswelling present over right elbow; slightly improved. ROM limited by pain. No overlying erythema or skin changes present. ABDOMEN: Soft, bowel sounds present, nontender, no distention. Lt abdomen w/ chronically indurated and raised areas w/ dry scales. CENTRAL NERVOUS SYSTEM: No facial droop. Speech is clear. Obeys simple commands. Moves extremities. EXTREMITIES: 2+ bilateral pitting edema present. No erythema seen. Results & Data Results & Data Vital Signs (Past 12 Hours) Vital Signs Temp Pulse Resp BP Pulse Ox O2 Del Method 11/25/22 11:07 36.4 C L 62 18 119/75 91 Room Air 11/25/22 07:40 37.3 C 71 18 132/67 94 Room Air 11/25/22 03:42 36.9 C 74 18 128/73 96 Room Air Laboratory Results Laboratory Results WBC 8.21 K/ul (4.8-10.8) 11/25/22 06:50 RBC 4.89 M/uL (4.70-6.10) 11/25/22 06:50 Hgb 14.6 g/dl (14.0-18.0) 11/25/22 06:50 Hct 45.4 % (42.0-52.0) 11/25/22 06:50 MCV 92.8 fL (80.0-100.0) 11/25/22 06:50 MCH 29.9 pg (25.0-34.0) 11/25/22 06:50 MCHC 32.2 g/dL (32.0-36.0) 11/25/22 06:50 RDW Std Deviation 42.8 fL (36.4-46.3) 11/25/22 06:50 RDW Coeff of Zoila 12.6 % (11.5-14.5) 11/25/22 06:50 Plt Count 397 K/uL (130-400) 11/25/22 06:50 MPV 10.3 fL (9.4-12.4) 11/25/22 06:50 Immature Gran % (Auto) 4.0 % 11/25/22 06:50 Neut % (Auto) 64.9 % 11/25/22 06:50 Lymph % (Auto) 15.2 % 11/25/22 06:50 [place] % (Auto) 12.7 % 11/25/22 06:50 Eos % (Auto) 2.1 % 11/25/22 06:50 Baso % (Auto) 1.1 % 11/25/22 06:50 Neut # (Auto) 5.33 K/uL (1.40-6.50) 11/25/22 06:50 Lymph # (Auto) 1.25 K/uL (1.2-3.4) 11/25/22 06:50 [place] # (Auto) 1.04 K/uL (0.11-0.59) H 11/25/22 06:50 Eos # (Auto) 0.17 K/uL (0-0.50) 11/25/22 06:50 Baso # (Auto) 0.09 K/uL (0-0.2) 11/25/22 06:50 Immature Gran # (Auto) 0.33 K/uL (0.01-0.20) H 11/25/22 06:50 ESR > 130 mm/hr (0-20) H 11/23/22 07:41 PT 22.4 Seconds (9.0-12.0) H 11/25/22 06:50 INR 2.2 (0.9-1.1) H 11/25/22 06:50 APTT 39.6 Seconds (21.0-31.0) H 11/11/22 13:17 PTT Ratio 1.4 11/11/22 13:17 Sodium 135 mmol/L (136-145) L 11/25/22 06:50 Potassium 4.8 mmol/L (3.5-5.1) 11/25/22 06:50 Chloride 99 mmol/L (98-107) 11/25/22 06:50 Carbon Dioxide 29 mmol/L (21-32) 11/25/22 06:50 Anion Gap 7 (3-11) 11/25/22 06:50 BUN 35 mg/dl (6-23) H 11/25/22 06:50 Creatinine 1.09 mg/dl (0.6-1.4) 11/25/22 06:50 Est Cr Clr Drug Dosing 127.5 ml/min 11/25/22 06:50 Est GFR ( Amer) 85.1 ml/min 11/25/22 06:50 Est GFR (Non-Af Amer) 73.4 ml/min 11/25/22 06:50 BUN/Creatinine Ratio 32.1 (10-20) H 11/25/22 06:50 Glucose 105 mg/dl (70-99(Fasting)) H 11/25/22 06:50 POC Glucose 128 mg/dl (70-99) H 11/25/22 11:31 Estimat Average Glucose 134 mg/dl 11/11/22 13:17 Hemoglobin A1c 6.3 % (4.5-5.6) H 11/11/22 13:17 Uric Acid Cancelled 11/23/22 07:57 Calcium 9.3 mg/dl (8.6-10.3) 11/25/22 06:50 Phosphorus 2.7 mg/dl (2.5-4.9) 11/21/22 06:28 Magnesium 1.6 mg/dl (1.7-2.4) L 11/21/22 06:28 Total Bilirubin 0.7 mg/dl (0.2-1.0) 11/25/22 06:50 AST 45 U/L (13-39) H 11/25/22 06:50 ALT 25 U/L (7-52) 11/25/22 06:50 Alkaline Phosphatase 93 U/L (34-104) 11/25/22 06:50 Troponin I High Sens 6.7 pg/ml (0-20) 11/11/22 13:17 C-Reactive Protein 13.03 mg/dl (0-0.5) H 11/23/22 07:41 B-Natriuretic Peptide 132 pg/ml (0-100) H 11/11/22 13:17 Total Protein 8.1 gm/dl (6.0-8.3) 11/25/22 06:50 Albumin 2.8 gm/dl (3.4-5.0) L 11/25/22 06:50 Globulin 5.3 gm/dl (2.5-4.0) H 11/25/22 06:50 Albumin/Globulin Ratio 0.5 (0.9-2) L 11/25/22 06:50 Procalcitonin 2.68 ng/ml (0-0.5) H 11/17/22 06:05 Urine Color Yellow 11/11/22 15:19 Urine Appearance Clear (Clear) 11/11/22 15:19 Urine pH 5.0 (4.5-7.5) 11/11/22 15:19 Ur Specific [place] 1.007 (1.000-1.030) 11/11/22 15:19 Urine Protein Negative (Negative) 11/11/22 15:19 Urine Glucose (UA) Negative (Negative) 11/11/22 15:19 Urine Ketones Negative (Negative) 11/11/22 15:19 Urine Blood 3+ (Negative) H 11/11/22 15:19 Urine Nitrite Negative (Negative) 11/11/22 15:19 Urine Bilirubin Negative (Negative) 11/11/22 15:19 Urine Urobilinogen Negative (Negative) 11/11/22 15:19 Ur Leukocyte Esterase Negative (Negative) 11/11/22 15:19 Urine WBC (Auto) 1-5 /hpf (0-5) 11/11/22 15:19 Urine RBC (Auto) 0-4 /hpf (0-4) 11/11/22 15:19 U Hyaline Cast (Auto) 1-5 /lpf (0-5) 11/11/22 15:19 U Epithel Cells (Auto) 5-10 /lpf (0-5) H 11/11/22 15:19 Urine Bacteria (Auto) Negative (Negative) 11/11/22 15:19 Stl C. diff Tox B Gene Negative Cdiff Gene (Neg) 11/17/22 11:30 SARS-CoV-2 (PCR) NEGATIVE (Negative) 11/11/22 13:17 Influenza Type A (PCR) Negative (Neg) 11/11/22 13:17 Influenza Type B (PCR) Negative (Neg) 11/11/22 13:17 RSV (RT-PCR) Negative (Neg) 11/11/22 13:17 Impressions Chest X-Ray 11/12/22 08:00 SINGLE VIEW CHEST CLINICAL HISTORY: Dyspnea FINDINGS: An AP, portable, upright chest radiograph is compared to study dated 11/11/2022. The examination is degraded by portable technique and apical lordotic positioning. The heart is enlarged. There is pulmonary vascular congestion and interstitial edema. Atelectasis is noted at the lung bases. No large pleural effusion or pneumothorax is identified. The bony thorax is grossly intact. IMPRESSION: Cardiomegaly with evidence of congestive failure and pulmonary edema. This is similar to yesterday. ACT 112: Negative or not required by law. Electronically signed by: Elbert Wen M.D. 11/12/2022 8:43 AM Venous Doppler Study 11/14/22 11:27 ULTRASOUND RIGHT LOWER EXTREMITY VENOUS CLINICAL HISTORY: Right leg. COMPARISON STUDY: Bilateral lower extremity venous ultrasound dated 09/15/2010. TECHNIQUE: Real-time, grayscale, and color Doppler sonography of the deep veins of the right lower extremity was performed from the inguinal crease to the calf. Compression and augmentation were utilized. FINDINGS: There is no sonographic evidence of deep venous thrombosis identified in the right lower extremity. The common femoral, superficial femoral, and popliteal veins are patent and normally compressible. The greater saphenous vein and the profunda femoris vein at the junction with the common femoral vein are clear. The visualized calf veins are patent. IMPRESSION: There is no sonographic evidence of deep venous thrombosis identified in the right lower extremity. ACT 112: Negative or not required by law. Electronically signed by: Elbert Wen M.D. 11/14/2022 2:02 PM Elbow X-Ray 11/22/22 11:29 XR elbow RT 2V HISTORY: 62 years-old Male Right elbow swelling acute pain and swelling of the right elbow COMPARISON: None TECHNIQUE: 2 views the right elbow FINDINGS: Mild to moderate dorsal soft tissue swelling. Small joint effusion. Moderate osteoarthritis. No acute fracture, dislocation or intra-articular loose body identified. IMPRESSION: 1. No acute fracture or dislocation identified. 2. Soft tissue swelling with small joint effusion. If there is clinical concern for an occult fracture, follow-up radiographs recommended in 10-14 days. 3. Moderate osteoarthritis. ACT 112: Negative or not required by law. The above report was generated using voice recognition software. It may contain grammatical, syntax or spelling errors. Electronically signed by: Fletcher Javier M.D. 11/22/2022 1:22 PM
[2022-11-25] MEDS: FUROSEMIDE 20 MG TAB PO SCH (16:38)
[2022-11-25] MEDS: WARFARIN SOD 1.25 MG TAB PO SCH (16:38)
[2022-11-25] MEDS: ATORVASTATIN 40 MG TAB PO SCH (19:30)
[2022-11-25] MEDS: LOPERAMIDE HCL 2 MG CAP PO PRN (19:55)
[2022-11-25] MEDS: TRAMADOL 200 MG PO SCH (20:47)
[2022-11-26] MEDS: PANTOprazole 40 MG TAB PO SCH (06:17)
[2022-11-26 06:51] LABS: BUN Creatinine Ratio 30.4 (10-20); Calcium 9.3 mg/dl (8.6-10.3); Creatinine Clr Calc Pharmacy 120.7 ml/min; Est GFR (African American) 79.7 ml/min; Est GFR (Non-African American) 68.8 ml/min; Potassium 5.1 mmol/L (3.5-5.1)
[2022-11-26] MEDS: METOPROLOL SUCC 25MG EXT REL TAB PO SCH ×2 (08:38→20:48)
[2022-11-26] MEDS: DICLOFENAC SOD 1% GEL 100 GM TUBE EXT SCH ×3 (08:38→20:49)
[2022-11-26] MEDS: FUROSEMIDE 20 MG TAB PO SCH ×2 (08:39→16:14)
[2022-11-26] MEDS: PSYLLIUM or GUAR GUM FIBER POWDER PACKET PO SCH (08:39)
[2022-11-26] MEDS: POT PHOSPHATE MONOBASIC W/ SOD TAB PO SCH ×4 (08:39→20:47)
[2022-11-26] MEDS: SPIRONOLACTONE 12.5 MG TAB PO SCH (08:42)
[2022-11-26] MEDS: ASPIRIN 81 MG ECTAB PO SCH (09:55)
[2022-11-26] MEDS: COLCHICINE 0.6 MG TAB PO SCH ×2 (09:55→20:48)
[2022-11-26] MEDS: ENALAPRIL MALEATE 10 MG TAB PO SCH (09:56)
--- NOTE | 2022-11-26 12:46 | Hospitalist Progress Note ---
Date of Service November 26, 2022 Assessment & Plan (1) Acute on chronic diastolic heart failure with preserved ejection fraction: Plan 62-year-old male with PMH of SLE, T2DM, ROHIT on CPAP, A-fib on Coumadin, HTN, morbid obesity presented to the ED 11/11 with complaint of worsening shortness of breath and lower extremity swelling since last 2 to 3 days prior to arrival. 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 He denies any new fever or chills or myalgia or increasing cough. He reports that he does not follow heart healthy diet, and has increased salty food/chips intake. But he does report that his water intake is modest which he refers to as " two 16 ounces bottles a day of water". He reports SOB w/ minimal exertion at presentation. He is being managed for the following: Acute on chronic respiratory failure Acute on chronic heart failure with preserved ejection fraction Presented to ED with worsening shortness of breath and lower extremity swelling [see above], not on any diuretics since 1.5 years at presentation. Admitting CXR personally reviewed; has pulmonary edema, at admission BLE with 2+ pitting edema. At admission, BNP 132, EKG with A-fib with controlled rate. Echo with preserved ejection fraction. Cardiology on board, metoprolol 75 Mg twice daily, Aldactone 25 Mg daily, was treated with IV diuretics.\\ DVT ruled out. Patient has total of -15 L since admission. Espinoza removed successful trial of void on 11/21. Morning labs reviewed; BUN and creatinine slightly elevated. Continue on Lasix 20 mg twice daily. Right elbow pain/swelling Possible gout flare On 11/22; patient reported pain and swelling on right elbow. No overlying skin changes present. X-ray of the elbow personally reviewed: soft tissue swelling with a small joint effusion. Discussed with orthopedics; patient likely due to arthritis. Serum uric acid level reviewed; will start on allopurinol after patient's acute flare is improved. Patient recently started on diuretics; will treat empirically for gout flare ; currently on colchicine 0.6 mg twice daily; will continue for now. Chronic A-fib Supratherapeutic INR. INR reviewed yesterday; continue on warfarin. Bilateral knee pain Likely secondary to osteoarthritis Treated with Tylenol as needed. Continue using Voltaren gel He recently missed his scheduled b/l knee injection at Dr. Davis office, [facility] consulted, --s/p b/l knee injection 11/16. Pt reports improvement in his knee pain. Electrolyte abnormalities: Monitor and replete. Other chronic medical conditions: DM2, ROHIT [wears CPAP at home], HTN, HLD, GERD --- continue with home meds as able. Sliding scale insulin while in hospital. Disposition: PCP: Dr. Koch CODE STATUS: Full code VTE prophylaxis: On Coumadin Dispopatient awaiting placement to rehab. functional manager on board. Admission and Anticipated Discharge Date Admission Date: November 11, 2022 Subjective Patient seen and examined at bedside. Is comfortably lying in the bed; not in any distress. He reports that his left elbow pain has improved compared to last 2 days. Review of Systems Review of Systems: All systems reviewed & are unremarkable except as noted in Subjective Physical Exam Physical Exam: GENERAL: Alert and oriented x3. NAD, on RA, Morbidly obese. HEENT: No pallor, no icterus. Pupils equal, round and reactive to light. Oral mucosa moist. NECK: No JVD, no neck masses. HEART: S1 and S2 heard. Regular rate and rhythm. No murmur, no gallop. RESPIRATORY SYSTEM: Normal AP diameter. No accessory muscle use. No wheezing, b/b crackles. Decreased breath sounds overall MSKswelling improved; ROM improved. No overlying erythema or skin changes present. ABDOMEN: Soft, bowel sounds present, nontender, no distention. Lt abdomen w/ chronically indurated and raised areas w/ dry scales. CENTRAL NERVOUS SYSTEM: No facial droop. Speech is clear. Obeys simple commands. Moves extremities. EXTREMITIES: 2+ bilateral pitting edema present. No erythema seen. Results & Data Results & Data Vital Signs (Past 12 Hours) Vital Signs Temp Pulse Pulse Resp BP Pulse Ox O2 Del Method 11/26/22 11:13 36.5 C 76 18 119/70 92 Room Air 11/26/22 08:03 36.3 C L 87 18 113/71 92 Room Air 11/26/22 06:03 96 H 11/26/22 03:39 36.5 C 76 18 117/69 92 Room Air Laboratory Results Laboratory Results WBC 8.21 K/ul (4.8-10.8) 11/25/22 06:50 RBC 4.89 M/uL (4.70-6.10) 11/25/22 06:50 Hgb 14.6 g/dl (14.0-18.0) 11/25/22 06:50 Hct 45.4 % (42.0-52.0) 11/25/22 06:50 MCV 92.8 fL (80.0-100.0) 11/25/22 06:50 MCH 29.9 pg (25.0-34.0) 11/25/22 06:50 MCHC 32.2 g/dL (32.0-36.0) 11/25/22 06:50 RDW Std Deviation 42.8 fL (36.4-46.3) 11/25/22 06:50 RDW Coeff of Zoila 12.6 % (11.5-14.5) 11/25/22 06:50 Plt Count 397 K/uL (130-400) 11/25/22 06:50 MPV 10.3 fL (9.4-12.4) 11/25/22 06:50 Immature Gran % (Auto) 4.0 % 11/25/22 06:50 Neut % (Auto) 64.9 % 11/25/22 06:50 Lymph % (Auto) 15.2 % 11/25/22 06:50 Real % (Auto) 12.7 % 11/25/22 06:50 Eos % (Auto) 2.1 % 11/25/22 06:50 Baso % (Auto) 1.1 % 11/25/22 06:50 Neut # (Auto) 5.33 K/uL (1.40-6.50) 11/25/22 06:50 Lymph # (Auto) 1.25 K/uL (1.2-3.4) 11/25/22 06:50 Real # (Auto) 1.04 K/uL (0.11-0.59) H 11/25/22 06:50 Eos # (Auto) 0.17 K/uL (0-0.50) 11/25/22 06:50 Baso # (Auto) 0.09 K/uL (0-0.2) 11/25/22 06:50 Immature Gran # (Auto) 0.33 K/uL (0.01-0.20) H 11/25/22 06:50 ESR > 130 mm/hr (0-20) H 11/23/22 07:41 PT 22.4 Seconds (9.0-12.0) H 11/25/22 06:50 INR 2.2 (0.9-1.1) H 11/25/22 06:50 APTT 39.6 Seconds (21.0-31.0) H 11/11/22 13:17 PTT Ratio 1.4 11/11/22 13:17 Sodium 135 mmol/L (136-145) L 11/26/22 06:19 Potassium 5.1 mmol/L (3.5-5.1) 11/26/22 06:19 Chloride 100 mmol/L (98-107) 11/26/22 06:19 Carbon Dioxide 29 mmol/L (21-32) 11/26/22 06:19 Anion Gap 6 (3-11) 11/26/22 06:19 BUN 35 mg/dl (6-23) H 11/26/22 06:19 Creatinine 1.15 mg/dl (0.6-1.4) 11/26/22 06:19 Est Cr Clr Drug Dosing 120.7 ml/min 11/26/22 06:19 Est GFR ( Amer) 79.7 ml/min 11/26/22 06:19 Est GFR (Non-Af Amer) 68.8 ml/min 11/26/22 06:19 BUN/Creatinine Ratio 30.4 (10-20) H 11/26/22 06:19 Glucose 107 mg/dl (70-99(Fasting)) H 11/26/22 06:19 POC Glucose 90 mg/dl (70-99) 11/26/22 11:39 Estimat Average Glucose 134 mg/dl 11/11/22 13:17 Hemoglobin A1c 6.3 % (4.5-5.6) H 11/11/22 13:17 Uric Acid Cancelled 11/23/22 07:57 Calcium 9.3 mg/dl (8.6-10.3) 11/26/22 06:19 Phosphorus 2.7 mg/dl (2.5-4.9) 11/21/22 06:28 Magnesium 1.6 mg/dl (1.7-2.4) L 11/21/22 06:28 Total Bilirubin 0.7 mg/dl (0.2-1.0) 11/25/22 06:50 AST 45 U/L (13-39) H 11/25/22 06:50 ALT 25 U/L (7-52) 11/25/22 06:50 Alkaline Phosphatase 93 U/L (34-104) 11/25/22 06:50 Troponin I High Sens 6.7 pg/ml (0-20) 11/11/22 13:17 C-Reactive Protein 13.03 mg/dl (0-0.5) H 11/23/22 07:41 B-Natriuretic Peptide 132 pg/ml (0-100) H 11/11/22 13:17 Total Protein 8.1 gm/dl (6.0-8.3) 11/25/22 06:50 Albumin 2.8 gm/dl (3.4-5.0) L 11/25/22 06:50 Globulin 5.3 gm/dl (2.5-4.0) H 11/25/22 06:50 Albumin/Globulin Ratio 0.5 (0.9-2) L 11/25/22 06:50 Procalcitonin 2.68 ng/ml (0-0.5) H 11/17/22 06:05 Urine Color Yellow 11/11/22 15:19 Urine Appearance Clear (Clear) 11/11/22 15:19 Urine pH 5.0 (4.5-7.5) 11/11/22 15:19 Ur Specific [place] 1.007 (1.000-1.030) 11/11/22 15:19 Urine Protein Negative (Negative) 11/11/22 15:19 Urine Glucose (UA) Negative (Negative) 11/11/22 15:19 Urine Ketones Negative (Negative) 11/11/22 15:19 Urine Blood 3+ (Negative) H 11/11/22 15:19 Urine Nitrite Negative (Negative) 11/11/22 15:19 Urine Bilirubin Negative (Negative) 11/11/22 15:19 Urine Urobilinogen Negative (Negative) 11/11/22 15:19 Ur Leukocyte Esterase Negative (Negative) 11/11/22 15:19 Urine WBC (Auto) 1-5 /hpf (0-5) 11/11/22 15:19 Urine RBC (Auto) 0-4 /hpf (0-4) 11/11/22 15:19 U Hyaline Cast (Auto) 1-5 /lpf (0-5) 11/11/22 15:19 U Epithel Cells (Auto) 5-10 /lpf (0-5) H 11/11/22 15:19 Urine Bacteria (Auto) Negative (Negative) 11/11/22 15:19 Stl C. diff Tox B Gene Negative Cdiff Gene (Neg) 11/17/22 11:30 SARS-CoV-2 (PCR) NEGATIVE (Negative) 11/11/22 13:17 Influenza Type A (PCR) Negative (Neg) 11/11/22 13:17 Influenza Type B (PCR) Negative (Neg) 11/11/22 13:17 RSV (RT-PCR) Negative (Neg) 11/11/22 13:17 Impressions Chest X-Ray 11/12/22 08:00 SINGLE VIEW CHEST CLINICAL HISTORY: Dyspnea FINDINGS: An AP, portable, upright chest radiograph is compared to study dated 11/11/2022. The examination is degraded by portable technique and apical lordotic positioning. The heart is enlarged. There is pulmonary vascular congestion and interstitial edema. Atelectasis is noted at the lung bases. No large pleural effusion or pneumothorax is identified. The bony thorax is grossly intact. IMPRESSION: Cardiomegaly with evidence of congestive failure and pulmonary edema. This is similar to yesterday. ACT 112: Negative or not required by law. Electronically signed by: Elbert Wen M.D. 11/12/2022 8:43 AM Venous Doppler Study 11/14/22 11:27 ULTRASOUND RIGHT LOWER EXTREMITY VENOUS CLINICAL HISTORY: Right leg. COMPARISON STUDY: Bilateral lower extremity venous ultrasound dated 09/15/2010. TECHNIQUE: Real-time, grayscale, and color Doppler sonography of the deep veins of the right lower extremity was performed from the inguinal crease to the calf. Compression and augmentation were utilized. FINDINGS: There is no sonographic evidence of deep venous thrombosis identified in the right lower extremity. The common femoral, superficial femoral, and popliteal veins are patent and normally compressible. The greater saphenous vein and the profunda femoris vein at the junction with the common femoral vein are clear. The visualized calf veins are patent. IMPRESSION: There is no sonographic evidence of deep venous thrombosis identified in the right lower extremity. ACT 112: Negative or not required by law. Electronically signed by: Elbert Wen M.D. 11/14/2022 2:02 PM Elbow X-Ray 11/22/22 11:29 XR elbow RT 2V HISTORY: 62 years-old Male Right elbow swelling acute pain and swelling of the right elbow COMPARISON: None TECHNIQUE: 2 views the right elbow FINDINGS: Mild to moderate dorsal soft tissue swelling. Small joint effusion. Moderate osteoarthritis. No acute fracture, dislocation or intra-articular loose body identified. IMPRESSION: 1. No acute fracture or dislocation identified. 2. Soft tissue swelling with small joint effusion. If there is clinical concern for an occult fracture, follow-up radiographs recommended in 10-14 days. 3. Moderate osteoarthritis. ACT 112: Negative or not required by law. The above report was generated using voice recognition software. It may contain grammatical, syntax or spelling errors. Electronically signed by: Fletcher Javier M.D. 11/22/2022 1:22 PM
[2022-11-26] MEDS: WARFARIN SOD 7.5 MG TAB PO SCH (16:14)
[2022-11-26] MEDS: ATORVASTATIN 40 MG TAB PO SCH (20:49)
[2022-11-26] MEDS: LOPERAMIDE HCL 2 MG CAP PO PRN (20:57)
[2022-11-26] MEDS: TRAMADOL 200 MG PO SCH (21:00)
[2022-11-27] MEDS: PANTOprazole 40 MG TAB PO SCH (05:45)
[2022-11-27 07:04] LABS: BUN Creatinine Ratio 26.4 (10-20); Calcium 9.1 mg/dl (8.6-10.3); Creatinine Clr Calc Pharmacy 111.5 ml/min; Est GFR (African American) 72.1 ml/min; Est GFR (Non-African American) 62.2 ml/min; Potassium 4.6 mmol/L (3.5-5.1)
[2022-11-27 07:11] LABS: INR 2.5 (0.9-1.1); Prothrombin Time 25.8 Seconds (9.0-12.0)
[2022-11-27] MEDS: ENALAPRIL MALEATE 10 MG TAB PO SCH (08:57)
[2022-11-27] MEDS: POT PHOSPHATE MONOBASIC W/ SOD TAB PO SCH ×4 (08:58→20:43)
[2022-11-27] MEDS: METOPROLOL SUCC 25MG EXT REL TAB PO SCH ×2 (08:58→20:41)
[2022-11-27] MEDS: SPIRONOLACTONE 12.5 MG TAB PO SCH (08:59)
[2022-11-27] MEDS: COLCHICINE 0.6 MG TAB PO SCH (08:59)
[2022-11-27] MEDS: ASPIRIN 81 MG ECTAB PO SCH (08:59)
[2022-11-27] MEDS: FUROSEMIDE 20 MG TAB PO SCH ×2 (08:59→16:53)
[2022-11-27] MEDS: PSYLLIUM or GUAR GUM FIBER POWDER PACKET PO SCH ×2 (09:00→09:02)
[2022-11-27] MEDS: DICLOFENAC SOD 1% GEL 100 GM TUBE EXT SCH ×3 (09:00→20:42)
[2022-11-27] MEDS ORDERED: CALCIUM CARBONATE 500 MG CHEWABLE TAB PO PRN (12:23)
--- NOTE | 2022-11-27 13:27 | Hospitalist Progress Note ---
Date of Service November 27, 2022 Assessment & Plan (1) Acute on chronic diastolic heart failure with preserved ejection fraction: Plan 62-year-old male with PMH of SLE, T2DM, ROHIT on CPAP, A-fib on Coumadin, HTN, morbid obesity presented to the ED 11/11 with complaint of worsening shortness of breath and lower extremity swelling since last 2 to 3 days prior to arrival. 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 He denies any new fever or chills or myalgia or increasing cough. He reports that he does not follow heart healthy diet, and has increased salty food/chips intake. But he does report that his water intake is modest which he refers to as " two 16 ounces bottles a day of water". He reports SOB w/ minimal exertion at presentation. He is being managed for the following: Acute on chronic respiratory failure Acute on chronic heart failure with preserved ejection fraction Presented to ED with worsening shortness of breath and lower extremity swelling [see above], not on any diuretics since 1.5 years at presentation. Admitting CXR personally reviewed; has pulmonary edema, at admission BLE with 2+ pitting edema. At admission, BNP 132, EKG with A-fib with controlled rate. Echo with preserved ejection fraction. Cardiology on board, metoprolol 75 Mg twice daily, Aldactone 25 Mg daily, was treated with IV diuretics.\\ DVT ruled out. Patient has total of -15 L since admission. Espinoza removed successful trial of void on 11/21. Morning labs reviewed; BUN and creatinine slightly elevated. Continue on Lasix 20 mg twice daily. Right elbow pain/swelling Possible gout flare On 11/22; patient reported pain and swelling on right elbow. No overlying skin changes present. X-ray of the elbow personally reviewed: soft tissue swelling with a small joint effusion. Discussed with orthopedics; patient likely due to arthritis. Serum uric acid level reviewed; will start on allopurinol after patient's acute flare is improved. Patient recently started on diuretics; will treat empirically for gout flare ; treated with course of colchicine. Needs to be started on allopurinol as outpatient. Chronic A-fib Supratherapeutic INR. INR reviewed continue on warfarin. Bilateral knee pain Likely secondary to osteoarthritis Treated with Tylenol as needed. Continue using Voltaren gel He recently missed his scheduled b/l knee injection at Dr. Davis office, [facility] consulted, --s/p b/l knee injection 11/16. Pt reports improvement in his knee pain. Electrolyte abnormalities: Monitor and replete. Other chronic medical conditions: DM2, ROHIT [wears CPAP at home], HTN, HLD, GERD --- continue with home meds as able. Sliding scale insulin while in hospital. Disposition: PCP: Dr. Koch CODE STATUS: Full code VTE prophylaxis: On Coumadin Dispopatient awaiting placement to rehab. agile project manager on board. Admission and Anticipated Discharge Date Admission Date: November 11, 2022 Subjective Patient seen and examined at bedside. He reports that he is elbow pain has subsided. Reports 2 episodes of diarrhea today. Review of Systems Review of Systems: All systems reviewed & are unremarkable except as noted in Subjective Physical Exam Physical Exam: GENERAL: Alert and oriented x3. NAD, on RA, Morbidly obese. HEENT: No pallor, no icterus. Pupils equal, round and reactive to light. Oral mucosa moist. NECK: No JVD, no neck masses. HEART: S1 and S2 heard. Regular rate and rhythm. No murmur, no gallop. RESPIRATORY SYSTEM: Normal AP diameter. No accessory muscle use. No wheezing, b/b crackles. Decreased breath sounds overall MSKswelling improved; ROM improved. No overlying erythema or skin changes present. ABDOMEN: Soft, bowel sounds present, nontender, no distention. Lt abdomen w/ chronically indurated and raised areas w/ dry scales. CENTRAL NERVOUS SYSTEM: No facial droop. Speech is clear. Obeys simple commands. Moves extremities. EXTREMITIES: 1+ pitting edema. Results & Data Results & Data Vital Signs (Past 12 Hours) Vital Signs Temp Pulse Pulse Resp BP Pulse Ox O2 Del Method 11/27/22 11:06 36.7 C 82 20 115/76 95 Room Air 11/27/22 07:49 36.6 C 82 20 131/78 94 Room Air 11/27/22 06:00 82 Laboratory Results Laboratory Results WBC 8.21 K/ul (4.8-10.8) 11/25/22 06:50 RBC 4.89 M/uL (4.70-6.10) 11/25/22 06:50 Hgb 14.6 g/dl (14.0-18.0) 11/25/22 06:50 Hct 45.4 % (42.0-52.0) 11/25/22 06:50 MCV 92.8 fL (80.0-100.0) 11/25/22 06:50 MCH 29.9 pg (25.0-34.0) 11/25/22 06:50 MCHC 32.2 g/dL (32.0-36.0) 11/25/22 06:50 RDW Std Deviation 42.8 fL (36.4-46.3) 11/25/22 06:50 RDW Coeff of Zoila 12.6 % (11.5-14.5) 11/25/22 06:50 Plt Count 397 K/uL (130-400) 11/25/22 06:50 MPV 10.3 fL (9.4-12.4) 11/25/22 06:50 Immature Gran % (Auto) 4.0 % 11/25/22 06:50 Neut % (Auto) 64.9 % 11/25/22 06:50 Lymph % (Auto) 15.2 % 11/25/22 06:50 [place] % (Auto) 12.7 % 11/25/22 06:50 Eos % (Auto) 2.1 % 11/25/22 06:50 Baso % (Auto) 1.1 % 11/25/22 06:50 Neut # (Auto) 5.33 K/uL (1.40-6.50) 11/25/22 06:50 Lymph # (Auto) 1.25 K/uL (1.2-3.4) 11/25/22 06:50 [place] # (Auto) 1.04 K/uL (0.11-0.59) H 11/25/22 06:50 Eos # (Auto) 0.17 K/uL (0-0.50) 11/25/22 06:50 Baso # (Auto) 0.09 K/uL (0-0.2) 11/25/22 06:50 Immature Gran # (Auto) 0.33 K/uL (0.01-0.20) H 11/25/22 06:50 ESR > 130 mm/hr (0-20) H 11/23/22 07:41 PT 25.8 Seconds (9.0-12.0) H 11/27/22 06:11 INR 2.5 (0.9-1.1) H 11/27/22 06:11 APTT 39.6 Seconds (21.0-31.0) H 11/11/22 13:17 PTT Ratio 1.4 11/11/22 13:17 Sodium 137 mmol/L (136-145) 11/27/22 06:11 Potassium 4.6 mmol/L (3.5-5.1) 11/27/22 06:11 Chloride 99 mmol/L (98-107) 11/27/22 06:11 Carbon Dioxide 30 mmol/L (21-32) 11/27/22 06:11 Anion Gap 8 (3-11) 11/27/22 06:11 BUN 33 mg/dl (6-23) H 11/27/22 06:11 Creatinine 1.25 mg/dl (0.6-1.4) 11/27/22 06:11 Est Cr Clr Drug Dosing 111.5 ml/min 11/27/22 06:11 Est GFR ( Amer) 72.1 ml/min 11/27/22 06:11 Est GFR (Non-Af Amer) 62.2 ml/min 11/27/22 06:11 BUN/Creatinine Ratio 26.4 (10-20) H 11/27/22 06:11 Glucose 104 mg/dl (70-99(Fasting)) H 11/27/22 06:11 POC Glucose 90 mg/dl (70-99) 11/27/22 11:30 Estimat Average Glucose 134 mg/dl 11/11/22 13:17 Hemoglobin A1c 6.3 % (4.5-5.6) H 11/11/22 13:17 Uric Acid Cancelled 11/23/22 07:57 Calcium 9.1 mg/dl (8.6-10.3) 11/27/22 06:11 Phosphorus 2.7 mg/dl (2.5-4.9) 11/21/22 06:28 Magnesium 1.6 mg/dl (1.7-2.4) L 11/21/22 06:28 Total Bilirubin 0.7 mg/dl (0.2-1.0) 11/25/22 06:50 AST 45 U/L (13-39) H 11/25/22 06:50 ALT 25 U/L (7-52) 11/25/22 06:50 Alkaline Phosphatase 93 U/L (34-104) 11/25/22 06:50 Troponin I High Sens 6.7 pg/ml (0-20) 11/11/22 13:17 C-Reactive Protein 13.03 mg/dl (0-0.5) H 11/23/22 07:41 B-Natriuretic Peptide 132 pg/ml (0-100) H 11/11/22 13:17 Total Protein 8.1 gm/dl (6.0-8.3) 11/25/22 06:50 Albumin 2.8 gm/dl (3.4-5.0) L 11/25/22 06:50 Globulin 5.3 gm/dl (2.5-4.0) H 11/25/22 06:50 Albumin/Globulin Ratio 0.5 (0.9-2) L 11/25/22 06:50 Procalcitonin 2.68 ng/ml (0-0.5) H 11/17/22 06:05 Urine Color Yellow 11/11/22 15:19 Urine Appearance Clear (Clear) 11/11/22 15:19 Urine pH 5.0 (4.5-7.5) 11/11/22 15:19 Ur Specific [place] 1.007 (1.000-1.030) 11/11/22 15:19 Urine Protein Negative (Negative) 11/11/22 15:19 Urine Glucose (UA) Negative (Negative) 11/11/22 15:19 Urine Ketones Negative (Negative) 11/11/22 15:19 Urine Blood 3+ (Negative) H 11/11/22 15:19 Urine Nitrite Negative (Negative) 11/11/22 15:19 Urine Bilirubin Negative (Negative) 11/11/22 15:19 Urine Urobilinogen Negative (Negative) 11/11/22 15:19 Ur Leukocyte Esterase Negative (Negative) 11/11/22 15:19 Urine WBC (Auto) 1-5 /hpf (0-5) 11/11/22 15:19 Urine RBC (Auto) 0-4 /hpf (0-4) 11/11/22 15:19 U Hyaline Cast (Auto) 1-5 /lpf (0-5) 11/11/22 15:19 U Epithel Cells (Auto) 5-10 /lpf (0-5) H 11/11/22 15:19 Urine Bacteria (Auto) Negative (Negative) 11/11/22 15:19 Stl C. diff Tox B Gene Negative Cdiff Gene (Neg) 11/17/22 11:30 SARS-CoV-2 (PCR) NEGATIVE (Negative) 11/11/22 13:17 Influenza Type A (PCR) Negative (Neg) 11/11/22 13:17 Influenza Type B (PCR) Negative (Neg) 11/11/22 13:17 RSV (RT-PCR) Negative (Neg) 11/11/22 13:17 Impressions Chest X-Ray 11/12/22 08:00 SINGLE VIEW CHEST CLINICAL HISTORY: Dyspnea FINDINGS: An AP, portable, upright chest radiograph is compared to study dated 11/11/2022. The examination is degraded by portable technique and apical lordotic positioning. The heart is enlarged. There is pulmonary vascular congestion and interstitial edema. Atelectasis is noted at the lung bases. No large pleural effusion or pneumothorax is identified. The bony thorax is grossly intact. IMPRESSION: Cardiomegaly with evidence of congestive failure and pulmonary edema. This is similar to yesterday. ACT 112: Negative or not required by law. Electronically signed by: Elbert Wen M.D. 11/12/2022 8:43 AM Venous Doppler Study 11/14/22 11:27 ULTRASOUND RIGHT LOWER EXTREMITY VENOUS CLINICAL HISTORY: Right leg. COMPARISON STUDY: Bilateral lower extremity venous ultrasound dated 09/15/2010. TECHNIQUE: Real-time, grayscale, and color Doppler sonography of the deep veins of the right lower extremity was performed from the inguinal crease to the calf. Compression and augmentation were utilized. FINDINGS: There is no sonographic evidence of deep venous thrombosis identified in the right lower extremity. The common femoral, superficial femoral, and popliteal veins are patent and normally compressible. The greater saphenous vein and the profunda femoris vein at the junction with the common femoral vein are clear. The visualized calf veins are patent. IMPRESSION: There is no sonographic evidence of deep venous thrombosis identified in the right lower extremity. ACT 112: Negative or not required by law. Electronically signed by: Elbert Wen M.D. 11/14/2022 2:02 PM Elbow X-Ray 11/22/22 11:29 XR elbow RT 2V HISTORY: 62 years-old Male Right elbow swelling acute pain and swelling of the right elbow COMPARISON: None TECHNIQUE: 2 views the right elbow FINDINGS: Mild to moderate dorsal soft tissue swelling. Small joint effusion. Moderate osteoarthritis. No acute fracture, dislocation or intra-articular loose body identified. IMPRESSION: 1. No acute fracture or dislocation identified. 2. Soft tissue swelling with small joint effusion. If there is clinical concern for an occult fracture, follow-up radiographs recommended in 10-14 days. 3. Moderate osteoarthritis. ACT 112: Negative or not required by law. The above report was generated using voice recognition software. It may contain grammatical, syntax or spelling errors. Electronically signed by: Fletcher Javier M.D. 11/22/2022 1:22 PM
[2022-11-27] MEDS: WARFARIN SOD 1.25 MG TAB PO SCH (16:52)
[2022-11-27] MEDS: TRAMADOL 200 MG PO SCH (20:41)
[2022-11-27] MEDS: ATORVASTATIN 40 MG TAB PO SCH (20:44)
[2022-11-28] MEDS: PANTOprazole 40 MG TAB PO SCH (06:10)
[2022-11-28 08:43] LABS: BUN Creatinine Ratio 25.3 (10-20); Calcium 8.9 mg/dl (8.6-10.3); Creatinine Clr Calc Pharmacy 95.3 ml/min; Est GFR (African American) 59.7 ml/min; Est GFR (Non-African American) 51.5 ml/min; Potassium 4.6 mmol/L (3.5-5.1)
[2022-11-28] MEDS: ASPIRIN 81 MG ECTAB PO SCH (09:01)
[2022-11-28] MEDS: DICLOFENAC SOD 1% GEL 100 GM TUBE EXT SCH ×3 (09:01→20:14)
[2022-11-28] MEDS: FUROSEMIDE 20 MG TAB PO SCH (09:01)
[2022-11-28] MEDS: ENALAPRIL MALEATE 10 MG TAB PO SCH (09:02)
[2022-11-28] MEDS: POT PHOSPHATE MONOBASIC W/ SOD TAB PO SCH ×4 (09:02→20:15)
[2022-11-28] MEDS: PSYLLIUM or GUAR GUM FIBER POWDER PACKET PO SCH (09:03)
[2022-11-28] MEDS: SPIRONOLACTONE 12.5 MG TAB PO SCH ×2 (09:03→09:05)
[2022-11-28] MEDS: METOPROLOL SUCC 25MG EXT REL TAB PO SCH ×2 (09:03→20:01)
[2022-11-28] MEDS: ONDANSETRON INJ 2 MG/ML 2 ML VIAL IV PRN (11:28)
[2022-11-28] MEDS: LOPERAMIDE HCL 2 MG CAP PO PRN (12:33)
[2022-11-28] MEDS: SODIUM CHLORIDE 0.9% 1000ML 1,000 ML IV SCH (13:35)
[2022-11-28] MEDS: WARFARIN SOD 7.5 MG TAB PO SCH (16:38)
--- NOTE | 2022-11-28 16:38 | Hospitalist Progress Note ---
Date of Service November 28, 2022 Assessment & Plan (1) Acute on chronic diastolic heart failure with preserved ejection fraction: Plan per previous hospitalist notes with addendum: 62-year-old male with PMH of SLE, T2DM, ROHIT on CPAP, A-fib on Coumadin, HTN, morbid obesity presented to the ED 11/11 with complaint of worsening shortness of breath and lower extremity swelling since last 2 to 3 days prior to arrival. 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 He denies any new fever or chills or myalgia or increasing cough. He reports that he does not follow heart healthy diet, and has increased salty food/chips intake. But he does report that his water intake is modest which he refers to as " two 16 ounces bottles a day of water". He reports SOB w/ minimal exertion at presentation. He is being managed for the following: Acute on chronic respiratory failure Acute on chronic heart failure with preserved ejection fraction Presented to ED with worsening shortness of breath and lower extremity swelling [see above], not on any diuretics since 1.5 years at presentation. Admitting CXR personally reviewed; has pulmonary edema, at admission BLE with 2+ pitting edema. At admission, BNP 132, EKG with A-fib with controlled rate. Echo with preserved ejection fraction. Cardiology on board, metoprolol 75 Mg twice daily, Aldactone 25 Mg daily, was treated with IV diuretics.\\ DVT ruled out. Patient has total of -15 L since admission. Espinoza removed successful trial of void on 11/21. Morning labs reviewed; BUN and creatinine slightly elevated. Continue on Lasix 20 mg twice daily. 11/28/22 Patient clinically on the dry side, also having diarrhea times few days Creatinine increased to 1.4 Gentle IV fluids, hold diuretics Monitor closely Diarrhea Check stool for C. difficile Clear liquid diet for today Gentle IV fluids Monitor closely Right elbow pain/swelling Possible gout flare On 11/22; patient reported pain and swelling on right elbow. No overlying skin changes present. X-ray of the elbow personally reviewed: soft tissue swelling with a small joint effusion. Discussed with orthopedics; patient likely due to arthritis. Serum uric acid level reviewed; will start on allopurinol after patient's acute flare is improved. Patient recently started on diuretics; will treat empirically for gout flare ; treated with course of colchicine. Needs to be started on allopurinol as outpatient. 11/28/22 Stable now Chronic A-fib Supratherapeutic INR. INR 2.5 Continue Coumadin Bilateral knee pain Likely secondary to osteoarthritis Treated with Tylenol as needed. Continue using Voltaren gel He recently missed his scheduled b/l knee injection at Dr. Davis office, [facility] consulted, --s/p b/l knee injection 11/16. Pt reports improvement in his knee pain. 11/28/2022 Stable now Electrolyte abnormalities: Monitor and replete. Other chronic medical conditions: DM2, ROHIT [wears CPAP at home], HTN, HLD, GERD --- continue with home meds as able. Sliding scale insulin while in hospital. Disposition: PCP: Dr. Koch CODE STATUS: Full code VTE prophylaxis: On Coumadin Dispopatient awaiting placement to rehab. erp project manager on board. Admission and Anticipated Discharge Date Admission Date: November 11, 2022 Subjective Follow-up for acute on chronic CHF diastolic type, etc. Seen resting in bed, sleeping but easily awakened States he feels rundown, secondary to persistent diarrhea Associated with some nausea Unable to tolerate food Has some mild abdominal discomfort No fevers or chills no chest pain, dyspnea, palpitations, dizziness No other symptoms Review of Systems Review of Systems: all noted and negative except for above Physical Exam Physical Exam: General- oriented x 3, not in distress, speaks in sentences with no effort or accessory muscle use Eyes- anicteric Neck- no JVD Lungs- clear breath sounds bilaterally, no rales/wheezes Heart- normal rate, regular rhythm; no murmurs Abdomen- normal bowel sounds, nondistended, soft, nontender Extremities- trace pretibial edema, no calf tenderness Neuro- alert, oriented x 3; no gross focal neurologic deficits Skin- warm & dry Results & Data Results & Data Vital Signs (Past 12 Hours) Vital Signs Temp Pulse Pulse Resp BP Pulse Ox O2 Del Method 11/28/22 16:17 36.6 C 85 16 106/70 93 Room Air 11/28/22 14:08 90 11/28/22 11:36 36.6 C 80 16 116/68 92 Room Air 11/28/22 07:47 Room Air 11/28/22 07:36 36.8 C 76 16 113/66 93 Room Air all noted and reviewed including below
[2022-11-28] MEDS: ATORVASTATIN 40 MG TAB PO SCH (20:14)
[2022-11-28] MEDS: TRAMADOL 200 MG PO SCH (20:21)
[2022-11-29] MEDS: SODIUM CHLORIDE 0.9% 1000ML 1,000 ML IV SCH ×2 (01:28→14:31)
[2022-11-29] MEDS ORDERED: LOPERAMIDE HCL 2 MG CAP PO PRN (09:02)
[2022-11-29 09:16] LABS: INR 3.2 (0.9-1.1); Prothrombin Time 31.6 Seconds (9.0-12.0)
[2022-11-29] MEDS: ENALAPRIL MALEATE 10 MG TAB PO SCH (09:53)
[2022-11-29] MEDS: PANTOprazole 40 MG TAB PO SCH (09:53)
[2022-11-29] MEDS: ASPIRIN 81 MG ECTAB PO SCH (09:54)
[2022-11-29] MEDS: POT PHOSPHATE MONOBASIC W/ SOD TAB PO SCH ×2 (09:55→13:41)
[2022-11-29] MEDS: METOPROLOL SUCC 25MG EXT REL TAB PO SCH ×2 (09:55→21:19)
[2022-11-29] MEDS: DICLOFENAC SOD 1% GEL 100 GM TUBE EXT SCH ×3 (09:56→21:19)
[2022-11-29 11:02] LABS: Calcium 9.2 mg/dl (8.6-10.3); Creatinine Clr Calc Pharmacy 104.6 ml/min; Est GFR (African American) 67.5 ml/min; Est GFR (Non-African American) 58.2 ml/min; Magnesium 1.3 mg/dl (1.7-2.4); Phosphorus 3.5 mg/dl (2.5-4.9); Potassium 5.2 mmol/L (3.5-5.1)
[2022-11-29] MEDS: ONDANSETRON INJ 2 MG/ML 2 ML VIAL IV PRN (15:27)
--- NOTE | 2022-11-29 16:15 | Hospitalist Progress Note ---
Date of Service November 29, 2022 delayed entry date of service noted above Assessment & Plan (1) Acute on chronic diastolic heart failure with preserved ejection fraction: Plan per previous hospitalist notes with addendum: 62-year-old male with PMH of SLE, T2DM, ROHIT on CPAP, A-fib on Coumadin, HTN, morbid obesity presented to the ED 11/11 with complaint of worsening shortness of breath and lower extremity swelling since last 2 to 3 days prior to arrival. 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 He denies any new fever or chills or myalgia or increasing cough. He reports that he does not follow heart healthy diet, and has increased salty food/chips intake. But he does report that his water intake is modest which he refers to as " two 16 ounces bottles a day of water". He reports SOB w/ minimal exertion at presentation. He is being managed for the following: Acute on chronic respiratory failure Acute on chronic heart failure with preserved ejection fraction Presented to ED with worsening shortness of breath and lower extremity swelling [see above], not on any diuretics since 1.5 years at presentation. Admitting CXR personally reviewed; has pulmonary edema, at admission BLE with 2+ pitting edema. At admission, BNP 132, EKG with A-fib with controlled rate. Echo with preserved ejection fraction. Cardiology on board, metoprolol 75 Mg twice daily, Aldactone 25 Mg daily, was treated with IV diuretics.\\ DVT ruled out. Patient has total of -15 L since admission. Espinoza removed successful trial of void on 11/21. Morning labs reviewed; BUN and creatinine slightly elevated. Continue on Lasix 20 mg twice daily. 11/28/22 Patient clinically on the dry side, also having diarrhea times few days Creatinine increased to 1.4 Gentle IV fluids, hold diuretics Monitor closely 11/29 hold diuretics due to dizziness gentle IV fluids Diarrhea Check stool for C. difficile Clear liquid diet for today Gentle IV fluids Monitor closely Right elbow pain/swelling Possible gout flare On 11/22; patient reported pain and swelling on right elbow. No overlying skin changes present. X-ray of the elbow personally reviewed: soft tissue swelling with a small joint effusion. Discussed with orthopedics; patient likely due to arthritis. Serum uric acid level reviewed; will start on allopurinol after patient's acute flare is improved. Patient recently started on diuretics; will treat empirically for gout flare ; treated with course of colchicine. Needs to be started on allopurinol as outpatient. 11/29/22 Stable now Chronic A-fib Supratherapeutic INR. INR 3.2 Continue Coumadin Bilateral knee pain Likely secondary to osteoarthritis Treated with Tylenol as needed. Continue using Voltaren gel He recently missed his scheduled b/l knee injection at Dr. Davis office, [facility] consulted, --s/p b/l knee injection 11/16. Pt reports improvement in his knee pain. 11/29/2022 Stable now Electrolyte abnormalities: Monitor and replete. Other chronic medical conditions: DM2, ROHIT [wears CPAP at home], HTN, HLD, GERD --- continue with home meds as able. Sliding scale insulin while in hospital. Disposition: PCP: Dr. Koch CODE STATUS: Full code VTE prophylaxis: On Coumadin Dispopending Admission and Anticipated Discharge Date Admission Date: November 11, 2022 Subjective Follow-up for CHF exacerbation, etc. Seen resting in bed In good spirits Is feeling somewhat better Nausea and diarrhea improving In the afternoon, patient had a presyncopal episode again while standing as per workplace relations adviser of Systems Review of Systems: all noted and negative except for above Physical Exam Physical Exam: General- oriented x 3, not in distress, speaks in sentences with no effort or accessory muscle use Eyes- anicteric Neck- no JVD Lungs- clear breath sounds bilaterally, no crackles, no wheezing Heart- normal rate, regular rhythm; no murmurs Abdomen- normal bowel sounds, nondistended, soft, no tenderness Extremities-trace pretibial edema, no calf tenderness Neuro- alert, oriented x 3; no gross focal neurologic deficits Skin- warm & dry Results & Data Results & Data Vital Signs (Past 12 Hours) Vital Signs Temp Pulse Pulse Resp BP Pulse Ox O2 Del Method 11/29/22 14:28 36.4 C L 105 H 20 128/79 97 Room Air 11/29/22 10:52 36.6 C 81 20 126/73 91 Room Air 11/29/22 08:00 Room Air 11/29/22 07:26 36.6 C 85 20 100/68 93 Room Air 11/29/22 07:22 84 all noted and reviewed including below
[2022-11-29] MEDS: WARFARIN SOD 1.25 MG TAB PO SCH (16:36)
[2022-11-29] MEDS: MAGNESIUM SULFATE / D5W 1 GM/100 ML BAG IV SCH ×2 (17:27→19:21)
[2022-11-29] MEDS: MICONAZOLE NITRATE POWDER 85 GM EXT PRN (17:27)
[2022-11-29] MEDS: ACETAMINOPHEN 500 MG TAB PO PRN (17:29)
[2022-11-29] MEDS: ATORVASTATIN 40 MG TAB PO SCH (21:18)
[2022-11-29] MEDS: TRAMADOL 200 MG PO SCH (21:19)
[2022-11-30] MEDS: SODIUM CHLORIDE 0.9% 1000ML 1,000 ML IV SCH ×2 (02:50→14:18)
[2022-11-30] MEDS: PANTOprazole 40 MG TAB PO SCH (05:53)
[2022-11-30] MEDS: PSYLLIUM or GUAR GUM FIBER POWDER PACKET PO SCH (07:10)
[2022-11-30 07:35] LABS: BUN Creatinine Ratio 21.3 (10-20); Calcium 8.5 mg/dl (8.6-10.3); Creatinine Clr Calc Pharmacy 129.5 ml/min; Est GFR (Non-African American) 74.2 ml/min; Magnesium 1.5 mg/dl (1.7-2.4); Phosphorus 3.1 mg/dl (2.5-4.9); Potassium 4.7 mmol/L (3.5-5.1)
[2022-11-30 09:21] LABS: INR 3.5 (0.9-1.1); Prothrombin Time 35.3 Seconds (9.0-12.0)
[2022-11-30] MEDS: DICLOFENAC SOD 1% GEL 100 GM TUBE EXT SCH ×3 (09:46→20:24)
[2022-11-30] MEDS: ASPIRIN 81 MG ECTAB PO SCH (09:46)
[2022-11-30] MEDS: METOPROLOL SUCC 25MG EXT REL TAB PO SCH ×2 (09:46→20:25)
[2022-11-30] MEDS: MICONAZOLE NITRATE POWDER 85 GM EXT PRN (14:20)
--- NOTE | 2022-11-30 18:28 | Hospitalist Progress Note ---
Date of Service November 30, 2022 Assessment & Plan (1) Acute on chronic diastolic heart failure with preserved ejection fraction: Plan: (1) Acute on chronic diastolic heart failure with preserved ejection fraction: Plan per previous hospitalist notes with addendum: 62-year-old male with PMH of SLE, T2DM, ROHIT on CPAP, A-fib on Coumadin, HTN, morbid obesity presented to the ED 11/11 with complaint of worsening shortness of breath and lower extremity swelling since last 2 to 3 days prior to arrival. Patient reports having recent " cold-like symptoms" and was treated with antibiotic by his PCP which he completed about 8 days ago [employer] WORK[employer]. He denies any new fever or chills or myalgia or increasing cough. He reports that he does not follow heart healthy diet, and has increased salty food/chips intake. But he does report that his water intake is modest which he refers to as " two 16 ounces bottles a day of water". He reports SOB w/ minimal exertion at presentation. He is being managed for the following: Acute on chronic respiratory failure Acute on chronic heart failure with preserved ejection fraction Presented to ED with worsening shortness of breath and lower extremity swelling [see above], not on any diuretics since 1.5 years at presentation. Admitting CXR personally reviewed; has pulmonary edema, at admission BLE with 2+ pitting edema. At admission, BNP 132, EKG with A-fib with controlled rate. Echo with preserved ejection fraction. Cardiology on board, metoprolol 75 Mg twice daily, Aldactone 25 Mg daily, was treated with IV diuretics. DVT ruled out. Patient has total of -15 L since admission. Espinoza removed successful trial of void on 11/21. Morning labs reviewed; BUN and creatinine slightly elevated. Continue on Lasix 20 mg twice daily. 11/28/22 Patient clinically on the dry side, also having diarrhea times few days Creatinine increased to 1.4 Gentle IV fluids, hold diuretics Monitor closely 11/29 hold diuretics due to dizziness gentle IV fluids 11/30 Continue holding diuretics Gentle IV fluids Diarrhea Resolved Diet advanced Right elbow pain/swelling Possible gout flare On 11/22; patient reported pain and swelling on right elbow. No overlying skin changes present. X-ray of the elbow personally reviewed: soft tissue swelling with a small joint effusion. Discussed with orthopedics; patient likely due to arthritis. Serum uric acid level reviewed; will start on allopurinol after patient's acute flare is improved. Patient recently started on diuretics; will treat empirically for gout flare ; treated with course of colchicine. Needs to be started on allopurinol as outpatient. 11/30/22 Stable now Chronic A-fib Supratherapeutic INR. INR 3.2 Continue Coumadin Bilateral knee pain Likely secondary to osteoarthritis Treated with Tylenol as needed. Continue using Voltaren gel He recently missed his scheduled b/l knee injection at Dr. Davis office, [facility] consulted, --s/p b/l knee injection 11/16. Pt reports improvement in his knee pain. 11/30/2022 Stable now Electrolyte abnormalities: Monitor and replete. Other chronic medical conditions:DM2, ROHIT [wears CPAP at home], HTN, HLD, GERD --- continue with home meds as able. Sliding scale insulin while in hospital. Disposition: PCP: Dr. Koch CODE STATUS: Full code VTE prophylaxis: On Coumadin Admission and Anticipated Discharge Date Admission Date: November 11, 2022 Subjective ff up for CHF etc seen resting in bed In good spirits States he feels better today Compared to yesterday Currently in bed rest Nausea and diarrhea also improving, tolerating diet well No other symptoms Review of Systems Review of Systems: all noted and negative except for above Physical Exam Physical Exam: General- oriented x 3, not in distress, speaks in sentences with no effort or accessory muscle use Eyes- anicteric Neck- no JVD Lungs- clear BS BL Heart- normal rate, regular rhythm; no murmurs Abdomen- normal bowel sounds, nondistended, soft, no tenderness Extremities- no pretibial edema, no calf tenderness Neuro- alert, oriented x 3; no gross focal neurologic deficits Skin- warm & dry Results & Data Results & Data Vital Signs (Past 12 Hours) Vital Signs Temp Pulse Pulse Resp BP Pulse Ox O2 Del Method 11/30/22 15:43 36.7 C 68 19 133/89 94 Room Air 11/30/22 08:00 Room Air 11/30/22 11:18 36.5 C 78 19 120/76 96 Room Air 11/30/22 08:18 36.5 C 90 19 123/68 95 Room Air 11/30/22 07:32 76 all noted and reviewed including below
[2022-11-30] MEDS: MAGNESIUM SULFATE / D5W 1 GM/100 ML BAG IV SCH ×2 (19:18→21:18)
[2022-11-30] MEDS: ATORVASTATIN 40 MG TAB PO SCH (20:24)
[2022-11-30] MEDS: TRAMADOL 200 MG PO SCH (20:44)
[2022-12-01] MEDS: SODIUM CHLORIDE 0.9% 1000ML 1,000 ML IV SCH ×2 (03:21→17:18)
[2022-12-01] MEDS: PANTOprazole 40 MG TAB PO SCH (05:38)
[2022-12-01 07:30] LABS: BUN Creatinine Ratio 17.9 (10-20); Calcium 8.5 mg/dl (8.6-10.3); Creatinine Clr Calc Pharmacy 130.3 ml/min; Est GFR (Non-African American) 75.9 ml/min; Potassium 4.9 mmol/L (3.5-5.1)
[2022-12-01 07:43] LABS: INR 2.8 (0.9-1.1); Prothrombin Time 28.5 Seconds (9.0-12.0)
[2022-12-01] MEDS: DICLOFENAC SOD 1% GEL 100 GM TUBE EXT SCH ×3 (09:43→22:01)
[2022-12-01] MEDS: METOPROLOL SUCC 25MG EXT REL TAB PO SCH (09:43)
[2022-12-01] MEDS: ASPIRIN 81 MG ECTAB PO SCH (09:43)
--- NOTE | 2022-12-01 16:25 | Hospitalist Progress Note ---
Date of Service December 01, 2022 Assessment & Plan (1) Acute on chronic diastolic heart failure with preserved ejection fraction: Plan: (1) Acute on chronic diastolic heart failure with preserved ejection fraction: Plan per previous hospitalist notes with addendum: 62-year-old male with PMH of SLE, T2DM, ROHIT on CPAP, A-fib on Coumadin, HTN, morbid obesity presented to the ED 11/11 with complaint of worsening shortness of breath and lower extremity swelling since last 2 to 3 days prior to arrival. 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 He denies any new fever or chills or myalgia or increasing cough. He reports that he does not follow heart healthy diet, and has increased salty food/chips intake. But he does report that his water intake is modest which he refers to as " two 16 ounces bottles a day of water". He reports SOB w/ minimal exertion at presentation. He is being managed for the following: Acute on chronic respiratory failure Acute on chronic heart failure with preserved ejection fraction Presented to ED with worsening shortness of breath and lower extremity swelling [see above], not on any diuretics since 1.5 years at presentation. Admitting CXR personally reviewed; has pulmonary edema, at admission BLE with 2+ pitting edema. At admission, BNP 132, EKG with A-fib with controlled rate. Echo with preserved ejection fraction. Cardiology on board, metoprolol 75 Mg twice daily, Aldactone 25 Mg daily, was treated with IV diuretics. DVT ruled out. Patient has total of -15 L since admission. Espinoza removed successful trial of void on 11/21. Morning labs reviewed; BUN and creatinine slightly elevated. Continue on Lasix 20 mg twice daily. 11/28/22 Patient clinically on the dry side, also having diarrhea times few days Creatinine increased to 1.4 Gentle IV fluids, hold diuretics Monitor closely 11/29 hold diuretics due to dizziness gentle IV fluids 11/30 Continue holding diuretics Gentle IV fluids 12/01 still having presyncope/dizziness when upright BP low normal hold diuretics hold Lisinopril lower Metoprolol to 50mg BID monitor Diarrhea Resolved Diet advanced Right elbow pain/swelling Possible gout flare On 11/22; patient reported pain and swelling on right elbow. No overlying skin changes present. X-ray of the elbow personally reviewed: soft tissue swelling with a small joint effusion. Discussed with orthopedics; patient likely due to arthritis. Serum uric acid level reviewed; will start on allopurinol after patient's acute flare is improved. Patient recently started on diuretics; will treat empirically for gout flare ; treated with course of colchicine. Needs to be started on allopurinol as outpatient. 11/30/22 Stable now 12/01 stable Chronic A-fib Supratherapeutic INR. INR 2.8 Continue Coumadin Bilateral knee pain Likely secondary to osteoarthritis Treated with Tylenol as needed. Continue using Voltaren gel He recently missed his scheduled b/l knee injection at Dr. Davis office, [facility] consulted, --s/p b/l knee injection 11/16. Pt reports improvement in his knee pain. 12/01/2022 Stable now Electrolyte abnormalities: Monitor and replete. Other chronic medical conditions:DM2, ROHIT [wears CPAP at home], HTN, HLD, GERD --- continue with home meds as able. Sliding scale insulin while in hospital. Disposition: PCP: Dr. Koch CODE STATUS: Full code VTE prophylaxis: On Coumadin Admission and Anticipated Discharge Date Admission Date: November 11, 2022 Subjective ff up for chf exacerbation, etc seen resting in bed, comfortable states he still felt dizzy when sitting upright in bed this morning "lightheaded",not room spinning no chest pain, dyspnea, palpitations no abdominal pain, nausea/vomiting, fever/chills no other symptoms Review of Systems Review of Systems: all noted and negative except for above Physical Exam Physical Exam: General- oriented x 3, not in distress, speaks in sentences with no effort or accessory muscle use Eyes- anicteric Neck- no JVD Lungs- clear breath sounds bilaterally, no rales/wheezes Heart- normal rate, regular rhythm; no murmurs Abdomen- normal bowel sounds, nondistended, soft, nontender Extremities- trace pretibial edema, no calf tenderness Neuro- alert, oriented x 3; no gross focal neurologic deficits Skin- warm & dry Results & Data Results & Data Vital Signs (Past 12 Hours) Vital Signs Temp Pulse Pulse Resp BP Pulse Ox O2 Del Method 12/01/22 15:35 78 12/01/22 11:53 36.3 C L 74 20 126/76 95 Room Air 12/01/22 08:00 36.8 C 83 20 116/66 96 Room Air 12/01/22 07:37 84
[2022-12-01] MEDS: WARFARIN SOD 1.25 MG TAB PO SCH (18:29)
[2022-12-01] MEDS: ATORVASTATIN 40 MG TAB PO SCH (21:37)
[2022-12-01] MEDS: TRAMADOL 200 MG PO SCH (22:00)
[2022-12-01] MEDS: METOPROLOL SUCC 50MG EXT REL TAB PO SCH (22:01)
[2022-12-02] MEDS: SODIUM CHLORIDE 0.9% 1000ML 1,000 ML IV SCH (04:21)
[2022-12-02] MEDS: PANTOprazole 40 MG TAB PO SCH (05:37)
[2022-12-02 06:50] LABS: BUN Creatinine Ratio 17.7 (10-20); Blood Urea Nitrogen 17 mg/dl (6-23); Calcium 8.3 mg/dl (8.6-10.3); Carbon Dioxide 24 mmol/L (21-32); Chloride 103 mmol/L (98-107); Creatinine Clr Calc Pharmacy 143.9 ml/min; Est GFR (African American) 99.2 ml/min; Est GFR (Non-African American) 85.6 ml/min; Glucose 106 mg/dl (70-99(Fasting))
[2022-12-02 06:51] LABS: INR 2.3 (0.9-1.1)
[2022-12-02 07:47] LABS: Potassium 4.5 mmol/L (3.5-5.1)
[2022-12-02] MEDS: ASPIRIN 81 MG ECTAB PO SCH (08:24)
[2022-12-02] MEDS: DICLOFENAC SOD 1% GEL 100 GM TUBE EXT SCH ×3 (08:24→20:33)
[2022-12-02] MEDS: METOPROLOL SUCC 50MG EXT REL TAB PO SCH ×2 (08:25→20:32)
[2022-12-02] MEDS: LOPERAMIDE HCL 2 MG CAP PO PRN (09:37)
--- NOTE | 2022-12-02 14:39 | Hospitalist Progress Note ---
Date of Service December 02, 2022 Assessment & Plan (1) Acute on chronic diastolic heart failure with preserved ejection fraction: Plan: (1) Acute on chronic diastolic heart failure with preserved ejection fraction: Plan per previous hospitalist notes with addendum: 62-year-old male with PMH of SLE, T2DM, ROHIT on CPAP, A-fib on Coumadin, HTN, morbid obesity presented to the ED 11/11 with complaint of worsening shortness of breath and lower extremity swelling since last 2 to 3 days prior to arrival. 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 He denies any new fever or chills or myalgia or increasing cough. He reports that he does not follow heart healthy diet, and has increased salty food/chips intake. But he does report that his water intake is modest which he refers to as " two 16 ounces bottles a day of water". He reports SOB w/ minimal exertion at presentation. He is being managed for the following: Acute on chronic respiratory failure Acute on chronic heart failure with preserved ejection fraction Presented to ED with worsening shortness of breath and lower extremity swelling [see above], not on any diuretics since 1.5 years at presentation. Admitting CXR personally reviewed; has pulmonary edema, at admission BLE with 2+ pitting edema. At admission, BNP 132, EKG with A-fib with controlled rate. Echo with preserved ejection fraction. Cardiology on board, metoprolol 75 Mg twice daily, Aldactone 25 Mg daily, was treated with IV diuretics. DVT ruled out. Patient has total of -15 L since admission. Espinoza removed successful trial of void on 11/21. Morning labs reviewed; BUN and creatinine slightly elevated. Continue on Lasix 20 mg twice daily. 11/28/22 Patient clinically on the dry side, also having diarrhea times few days Creatinine increased to 1.4 Gentle IV fluids, hold diuretics Monitor closely 11/29 hold diuretics due to dizziness gentle IV fluids 11/30 Continue holding diuretics Gentle IV fluids 12/01 still having presyncope/dizziness when upright BP low normal hold diuretics hold Lisinopril lower Metoprolol to 50mg BID monitor 12/02 BP improving We will try to sit up today DC IV fluids But hold diuretics for now Hold lisinopril Continue lower dose of metoprolol Monitor closely Diarrhea Resolved Diet advanced As needed Imodium Right elbow pain/swelling Possible gout flare On 11/22; patient reported pain and swelling on right elbow. No overlying skin changes present. X-ray of the elbow personally reviewed: soft tissue swelling with a small joint effusion. Discussed with orthopedics; patient likely due to arthritis. Serum uric acid level reviewed; will start on allopurinol after patient's acute flare is improved. Patient recently started on diuretics; will treat empirically for gout flare ; treated with course of colchicine. Needs to be started on allopurinol as outpatient. 12/02 Stable Chronic A-fib Supratherapeutic INR INR 2.3 Continue Coumadin Bilateral knee pain Likely secondary to osteoarthritis Treated with Tylenol as needed. Continue using Voltaren gel He recently missed his scheduled b/l knee injection at Dr. Davis office, [facility] consulted, --s/p b/l knee injection 11/16. Pt reports improvement in his knee pain. 12/02/2022 Stable now Electrolyte abnormalities: Monitor and replete. Other chronic medical conditions:DM2, ROHIT [wears CPAP at home], HTN, HLD, GERD --- continue with home meds as able. Sliding scale insulin while in hospital. Disposition: PCP: Dr. Koch CODE STATUS: Full code VTE prophylaxis: On Coumadin Admission and Anticipated Discharge Date Admission Date: November 11, 2022 Subjective Follow-up for seizure exacerbation, dizziness, etc. Seen resting in bed, not in distress States he feels better today and would like to try at least sitting upright no chest pain, dyspnea, palpitations, dizziness No other new symptoms Review of Systems Review of Systems: all noted and negative except for above Physical Exam Physical Exam: General- oriented x 3, not in distress, speaks in sentences with no effort or accessory muscle use Eyes- anicteric Neck- no JVD Lungs- clear breath sounds bilaterally, no rales/wheezes Heart- normal rate, regular rhythm; no murmurs Abdomen- normal bowel sounds, nondistended, soft, nontender Extremities- no pretibial edema, no calf tenderness Neuro- alert, oriented x 3; no gross focal neurologic deficits Skin- warm & dry Results & Data Results & Data Vital Signs (Past 12 Hours) Vital Signs Temp Pulse Pulse Resp BP Pulse Ox O2 Del Method 12/02/22 12:00 36.7 C 76 20 135/74 94 Room Air 12/02/22 09:00 79 04/09/23 08:00 36.7 C 81 18 104/64 92 Room Air 12/02/22 02:55 36.5 C 90 18 149/81 H 92 Room Air
[2022-12-02] MEDS: WARFARIN SOD 1.25 MG TAB PO SCH (16:14)
[2022-12-02] MEDS: TRAMADOL 200 MG PO SCH (20:32)
[2022-12-02] MEDS: ATORVASTATIN 40 MG TAB PO SCH (20:33)
[2022-12-03] MEDS: PANTOprazole 40 MG TAB PO SCH (05:20)
[2022-12-03 08:04] LABS: BUN Creatinine Ratio 16.8 (10-20); Calcium 8.6 mg/dl (8.6-10.3); Creatinine Clr Calc Pharmacy 138.1 ml/min; Est GFR (African American) 93.3 ml/min; Est GFR (Non-African American) 80.5 ml/min; Potassium 4.6 mmol/L (3.5-5.1)
[2022-12-03 08:20] LABS: INR 2.1 (0.9-1.1); Prothrombin Time 21.7 Seconds (9.0-12.0)
[2022-12-03] MEDS: METOPROLOL SUCC 50MG EXT REL TAB PO SCH ×2 (08:44→23:17)
[2022-12-03] MEDS: DICLOFENAC SOD 1% GEL 100 GM TUBE EXT SCH ×3 (08:44→23:17)
[2022-12-03] MEDS: ASPIRIN 81 MG ECTAB PO SCH (08:44)
[2022-12-03] MEDS: ONDANSETRON INJ 2 MG/ML 2 ML VIAL IV PRN (13:13)
--- NOTE | 2022-12-03 17:59 | Hospitalist Progress Note ---
Date of Service December 03, 2022 Assessment & Plan (1) Acute on chronic diastolic heart failure with preserved ejection fraction: Plan: (1) Acute on chronic diastolic heart failure with preserved ejection fraction: Plan per previous hospitalist notes with addendum: 62-year-old male with PMH of SLE, T2DM, ROHIT on CPAP, A-fib on Coumadin, HTN, morbid obesity presented to the ED 11/11 with complaint of worsening shortness of breath and lower extremity swelling since last 2 to 3 days prior to arrival. 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 He denies any new fever or chills or myalgia or increasing cough. He reports that he does not follow heart healthy diet, and has increased salty food/chips intake. But he does report that his water intake is modest which he refers to as " two 16 ounces bottles a day of water". He reports SOB w/ minimal exertion at presentation. He is being managed for the following: Acute on chronic respiratory failure Acute on chronic heart failure with preserved ejection fraction Presented to ED with worsening shortness of breath and lower extremity swelling [see above], not on any diuretics since 1.5 years at presentation. Admitting CXR personally reviewed; has pulmonary edema, at admission BLE with 2+ pitting edema. At admission, BNP 132, EKG with A-fib with controlled rate. Echo with preserved ejection fraction. Cardiology on board, metoprolol 75 Mg twice daily, Aldactone 25 Mg daily, was treated with IV diuretics. DVT ruled out. Patient has total of -15 L since admission. Espinoza removed successful trial of void on 11/21. Morning labs reviewed; BUN and creatinine slightly elevated. Continue on Lasix 20 mg twice daily. 11/28/22 Patient clinically on the dry side, also having diarrhea times few days Creatinine increased to 1.4 Gentle IV fluids, hold diuretics Monitor closely 11/29 hold diuretics due to dizziness gentle IV fluids 11/30 Continue holding diuretics Gentle IV fluids 12/01 still having presyncope/dizziness when upright BP low normal hold diuretics hold Lisinopril lower Metoprolol to 50mg BID monitor 12/02 BP improving We will try to sit up today DC IV fluids But hold diuretics for now Hold lisinopril Continue lower dose of metoprolol Monitor closely 12/03 BP continues to improve Hold diuretics Hold lisinopril Metoprolol dose lowered Continue monitoring blood pressure closely We will try PT and OT today Diarrhea Resolved Diet advanced As needed Imodium Right elbow pain/swelling Possible gout flare On 11/22; patient reported pain and swelling on right elbow. No overlying skin changes present. X-ray of the elbow personally reviewed: soft tissue swelling with a small joint effusion. Discussed with orthopedics; patient likely due to arthritis. Serum uric acid level reviewed; will start on allopurinol after patient's acute flare is improved. Patient recently started on diuretics; will treat empirically for gout flare ; treated with course of colchicine. Needs to be started on allopurinol as outpatient. 12/03 Stable Chronic A-fib Supratherapeutic INR INR 2.1 Continue Coumadin Bilateral knee pain Likely secondary to osteoarthritis Treated with Tylenol as needed. Continue using Voltaren gel He recently missed his scheduled b/l knee injection at Dr. Davis office, [facility] consulted, --s/p b/l knee injection 11/16. Pt reports improvement in his knee pain. 12/03/2022 Stable now Electrolyte abnormalities: Monitor and replete. Other chronic medical conditions:DM2, ROHIT [wears CPAP at home], HTN, HLD, GERD --- continue with home meds as able. Sliding scale insulin while in hospital. Disposition: PCP: Dr. Koch CODE STATUS: Full code VTE prophylaxis: On Coumadin Admission and Anticipated Discharge Date Admission Date: November 11, 2022 Subjective Follow-up for CHF, dizziness, etc. Seen resting in bed, sitting up, not in distress States he has been feeling fine so far while sitting up, no dizziness No shortness of breath, chest pain No nausea, diarrhea Tolerating diet well Review of Systems Review of Systems: all noted and negative except for above Physical Exam Physical Exam: General- oriented x 3, not in distress, speaks in sentences with no effort or accessory muscle use Eyes- anicteric Neck- no JVD Lungs- clear breath sounds bilaterally, no wheezing, no crackles Heart- normal rate, regular rhythm; no murmurs Abdomen- normal bowel sounds, nondistended, soft, no tenderness Extremities- no pretibial edema, no calf tenderness Neuro- alert, oriented x 3; no gross focal neurologic deficits Skin- warm & dry Results & Data Results & Data Vital Signs (Past 12 Hours) Vital Signs Temp Pulse Pulse Resp BP Pulse Ox O2 Del Method 12/03/22 15:52 36.7 C 81 20 133/76 95 Room Air 12/03/22 14:19 94 H 12/03/22 11:36 36.8 C 85 20 146/78 H 94 Room Air 12/03/22 07:55 36.5 C 75 18 134/76 94 Room Air 12/03/22 07:53 Room Air 12/03/22 06:01 77 all noted and reviewed including below
[2022-12-03] MEDS: ATORVASTATIN 40 MG TAB PO SCH (23:16)
[2022-12-03] MEDS: TRAMADOL 200 MG PO SCH (23:38)
[2022-12-04] MEDS: PANTOprazole 40 MG TAB PO SCH (05:36)
[2022-12-04 07:17] LABS: Calcium 8.4 mg/dl (8.6-10.3); Creatinine Clr Calc Pharmacy 156.8 ml/min; Est GFR (African American) 108.2 ml/min; Est GFR (Non-African American) 93.4 ml/min; Potassium 4.2 mmol/L (3.5-5.1)
[2022-12-04 07:30] LABS: Prothrombin Time 20.4 Seconds (9.0-12.0)
[2022-12-04] MEDS: DICLOFENAC SOD 1% GEL 100 GM TUBE EXT SCH ×3 (08:30→20:39)
[2022-12-04] MEDS: METOPROLOL SUCC 50MG EXT REL TAB PO SCH ×2 (08:31→20:39)
[2022-12-04] MEDS: ASPIRIN 81 MG ECTAB PO SCH (08:32)
[2022-12-04] MEDS ORDERED: FUROSEMIDE 20 MG TAB PO SCH (10:30)
[2022-12-04] MEDS: ceFAZolin 2000MG 2,000 MG/15 ML SYR IV SCH ×2 (10:57→17:20)
[2022-12-04] MEDS: ONDANSETRON INJ 2 MG/ML 2 ML VIAL IV PRN (11:04)
--- NOTE | 2022-12-04 15:55 | Hospitalist Progress Note ---
Date of Service December 04, 2022 Assessment & Plan (1) Acute on chronic diastolic heart failure with preserved ejection fraction: Plan: (1) Acute on chronic diastolic heart failure with preserved ejection fraction: Plan per previous hospitalist notes with addendum: 62-year-old male with PMH of SLE, T2DM, ROHIT on CPAP, A-fib on Coumadin, HTN, morbid obesity presented to the ED 11/11 with complaint of worsening shortness of breath and lower extremity swelling since last 2 to 3 days prior to arrival. 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 He denies any new fever or chills or myalgia or increasing cough. He reports that he does not follow heart healthy diet, and has increased salty food/chips intake. But he does report that his water intake is modest which he refers to as " two 16 ounces bottles a day of water". He reports SOB w/ minimal exertion at presentation. He is being managed for the following: Acute on chronic respiratory failure Acute on chronic heart failure with preserved ejection fraction Presented to ED with worsening shortness of breath and lower extremity swelling [see above], not on any diuretics since 1.5 years at presentation. Admitting CXR personally reviewed; has pulmonary edema, at admission BLE with 2+ pitting edema. At admission, BNP 132, EKG with A-fib with controlled rate. Echo with preserved ejection fraction. Patient diuresed well with IV Lasix -21 L fluid balance per records Patient subsequently developed lightheadedness, and had 2 witnessed presyncopal episodes in the room Blood pressure noted to be on the lower side Breath sounds clear, no leg edema Lasix and Aldactone held Given IV fluids Enalapril held Symptoms gradually improved Blood pressure improving Finally was able to perform physical therapy yesterday, walked around 8 feet before getting nauseated Positive mild rales today Gradually resume Lasix, 20 mg p.o. daily for now Monitor closely Diarrhea Resolved Diet advanced As needed Imodium Right elbow pain/swelling Possible gout flare On 11/22; patient reported pain and swelling on right elbow. No overlying skin changes present. X-ray of the elbow personally reviewed: soft tissue swelling with a small joint effusion. Discussed with orthopedics; patient likely due to arthritis. Serum uric acid level reviewed; will start on allopurinol after patient's acute flare is improved. Patient recently started on diuretics; will treat empirically for gout flare ; treated with course of colchicine. Needs to be started on allopurinol as outpatient. 12/03 Patient reporting severe pain in the right hand and wrist today after IV at the forearm removed yesterday Possible phlebitis? Start cefazolin every 8 hours Monitor closely Chronic A-fib Supratherapeutic INR INR 2.0 Continue Coumadin Bilateral knee pain Likely secondary to osteoarthritis Treated with Tylenol as needed. Continue using Voltaren gel He recently missed his scheduled b/l knee injection at Dr. Davis office, [facility] consulted, --s/p b/l knee injection 11/16. Pt reports improvement in his knee pain. 12/04/2022 Stable now Other chronic medical conditions:DM2, ROHIT [wears CPAP at home], HTN, HLD, GERD --- continue with home meds as able. Sliding scale insulin while in hospital. Disposition: PCP: Dr. 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 Seen resting in bed, comfortable, not in distress Per patient, he was able to walk at least 8 to 10 feet yesterday before developing some dizziness and nausea again Reports some abdominal cramping today but no diarrhea, nausea Also reporting significant right hand/wrist pain, after IV site removal from the right forearm yesterday No fevers or chills no chest pain, dyspnea, palpitations, dizziness Review of Systems Review of Systems: all noted and negative except for above Physical Exam Physical Exam: General- oriented x 3, not in distress, speaks in sentences with no effort or accessory muscle use Eyes- anicteric Neck- no JVD Lungs-mild rales at the bases Heart- normal rate, regular rhythm; no murmurs Abdomen- normal bowel sounds, nondistended, soft, nontender Extremities- no pretibial edema, no calf tenderness Right hand-mild edema of the right wrist, no edema on the fingers or palm, no erythema, (+) mild warmth on the hand and wrist, very poor range of motion due to pain Neuro- alert, oriented x 3; no gross focal neurologic deficits Skin- warm & dry Results & Data Results & Data Vital Signs (Past 12 Hours) Vital Signs Temp Pulse Pulse Resp BP Pulse Ox O2 Del Method 12/04/22 12:10 36.5 C 97 H 18 138/77 95 Room Air 12/04/22 09:50 Room Air 12/04/22 08:42 36.8 C 82 18 135/76 95 Room Air 12/04/22 06:00 87 all noted and reviewed including below
[2022-12-04] MEDS: WARFARIN SOD 1.25 MG TAB PO SCH (16:06)
[2022-12-04] MEDS: ATORVASTATIN 40 MG TAB PO SCH (20:38)
[2022-12-04] MEDS: TRAMADOL 200 MG PO SCH (21:51)
[2022-12-05] MEDS: ceFAZolin 2000MG 2,000 MG/15 ML SYR IV SCH ×3 (02:06→17:46)
[2022-12-05] MEDS: PANTOprazole 40 MG TAB PO SCH (05:31)
[2022-12-05 08:17] LABS: BUN Creatinine Ratio 15.2 (10-20); Calcium 8.3 mg/dl (8.6-10.3); Creatinine Clr Calc Pharmacy 139.8 ml/min; Est GFR (African American) 95.5 ml/min; Est GFR (Non-African American) 82.4 ml/min; Potassium 4.1 mmol/L (3.5-5.1)
[2022-12-05 08:24] LABS: Prothrombin Time 20.8 Seconds (9.0-12.0)
[2022-12-05] MEDS: ASPIRIN 81 MG ECTAB PO SCH (08:43)
[2022-12-05] MEDS: DICLOFENAC SOD 1% GEL 100 GM TUBE EXT SCH ×3 (08:43→22:17)
[2022-12-05] MEDS: METOPROLOL SUCC 50MG EXT REL TAB PO SCH ×2 (08:44→22:15)
[2022-12-05] MEDS ORDERED: SODIUM CHLORIDE 0.9% 1000ML 1,000 ML IV ONE (13:42)
--- NOTE | 2022-12-05 14:38 | Hospitalist Progress Note ---
Date of Service December 05, 2022 Assessment & Plan (1) Acute on chronic diastolic heart failure with preserved ejection fraction: Plan: (1) Acute on chronic diastolic heart failure with preserved ejection fraction: Plan per previous hospitalist notes with addendum: 62-year-old male with PMH of SLE, T2DM, ROHIT on CPAP, A-fib on Coumadin, HTN, morbid obesity presented to the ED 11/11 with complaint of worsening shortness of breath and lower extremity swelling since last 2 to 3 days prior to arrival. Patient reports having recent " cold-like symptoms" and was treated with antibiotic by his PCP which he completed about 8 days ago [employer]OBATE [employer]ALE[employer]. He denies any new fever or chills or myalgia or increasing cough. He reports that he does not follow heart healthy diet, and has increased salty food/chips intake. But he does report that his water intake is modest which he refers to as " two 16 ounces bottles a day of water". He reports SOB w/ minimal exertion at presentation. He is being managed for the following: Acute on chronic respiratory failure Acute on chronic heart failure with preserved ejection fraction Presented to ED with worsening shortness of breath and lower extremity swelling [see above], not on any diuretics since 1.5 years at presentation. Admitting CXR personally reviewed; has pulmonary edema, at admission BLE with 2+ pitting edema. At admission, BNP 132, EKG with A-fib with controlled rate. Echo with preserved ejection fraction. Patient diuresed well with IV Lasix -21 L fluid balance per records Patient subsequently developed lightheadedness, and had 2 witnessed presyncopal episodes in the room Discontinue diuretics for now. May restart hydrochlorothiazide if he becomes hypertensive IV fluids with normal saline bolus of 1 L and maintenance fluid Continue PT OT therapy Diarrhea Resolved Diet advanced As needed Imodium Right elbow pain/swelling Possible gout flare On 11/22; patient reported pain and swelling on right elbow. No overlying skin changes present. X-ray of the elbow personally reviewed: soft tissue swelling with a small joint effusion. Discussed with orthopedics; patient likely due to arthritis. Serum uric acid level reviewed; will start on allopurinol after patient's acute flare is improved. Patient recently started on diuretics; will treat empirically for gout flare ; treated with course of colchicine. Needs to be started on allopurinol as outpatient. Right forearm pain likely due to phlebitis Patient reporting severe pain in the right hand and wrist on 12/04 after IV at the forearm removed yesterday Start cefazolin every 8 hours Monitor closely Chronic A-fib Supratherapeutic INR INR 2.0 Continue Coumadin Bilateral knee pain Likely secondary to osteoarthritis Treated with Tylenol as needed. Continue using Voltaren gel He recently missed his scheduled b/l knee injection at Dr. Davis office, [facility] consulted, --s/p b/l knee injection 11/16. Pt reports improvement in his knee pain. Other chronic medical conditions:DM2, ROHIT [wears CPAP at home], HTN, HLD, GERD --- continue with home meds as able. Sliding scale insulin while in hospital. Disposition: PCP: Dr. 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 Continue IV fluids for now. Monitor closely in the hospital. Admission and Anticipated Discharge Date Admission Date: November 11, 2022 Subjective Patient seen and examined at bedside. He reports pain in his right arm is much better compared to yesterday. Worked with PT; was orthostatic while sitting up Review of Systems Review of Systems: All systems reviewed & are unremarkable except as noted in Subjective Physical Exam Physical Exam: GENERAL: Alert and oriented x3. NAD, on RA, Morbidly obese. HEENT: No pallor, no icterus. Pupils equal, round and reactive to light. Oral mucosa moist. NECK: No JVD, no neck masses. HEART: S1 and S2 heard. Regular rate and rhythm. No murmur, no gallop. RESPIRATORY SYSTEM: Normal AP diameter. No accessory muscle use. No wheezing, b/b crackles. Decreased breath sounds overall MSKminimal edema on right wrist; mild warmth on hand and wrist. Range of motion of hand slightly improved compared to yesterday ABDOMEN: Soft, bowel sounds present, nontender, no distention. Lt abdomen w/ chronically indurated and raised areas w/ dry scales. CENTRAL NERVOUS SYSTEM: No facial droop. Speech is clear. Obeys simple commands. Moves extremities. EXTREMITIES: 1+ pitting edema. Results & Data Results & Data Vital Signs (Past 12 Hours) Vital Signs Temp Pulse Pulse Resp BP Pulse Ox O2 Del Method 12/05/22 11:05 36.7 C 69 18 106/71 94 Room Air 12/05/22 07:48 37.0 C 91 H 18 135/74 93 Room Air 12/05/22 06:02 86 12/05/22 04:00 36.6 C 87 18 126/72 94 Room Air Laboratory Results Laboratory Results WBC 8.21 K/ul (4.8-10.8) 11/25/22 06:50 RBC 4.89 M/uL (4.70-6.10) 11/25/22 06:50 Hgb 14.6 g/dl (14.0-18.0) 11/25/22 06:50 Hct 45.4 % (42.0-52.0) 11/25/22 06:50 MCV 92.8 fL (80.0-100.0) 11/25/22 06:50 MCH 29.9 pg (25.0-34.0) 11/25/22 06:50 MCHC 32.2 g/dL (32.0-36.0) 11/25/22 06:50 RDW Std Deviation 42.8 fL (36.4-46.3) 11/25/22 06:50 RDW Coeff of Zoila 12.6 % (11.5-14.5) 11/25/22 06:50 Plt Count 397 K/uL (130-400) 11/25/22 06:50 MPV 10.3 fL (9.4-12.4) 11/25/22 06:50 Immature Gran % (Auto) 4.0 % 11/25/22 06:50 Neut % (Auto) 64.9 % 11/25/22 06:50 Lymph % (Auto) 15.2 % 11/25/22 06:50 [place] % (Auto) 12.7 % 11/25/22 06:50 Eos % (Auto) 2.1 % 11/25/22 06:50 Baso % (Auto) 1.1 % 11/25/22 06:50 Neut # (Auto) 5.33 K/uL (1.40-6.50) 11/25/22 06:50 Lymph # (Auto) 1.25 K/uL (1.2-3.4) 11/25/22 06:50 [place] # (Auto) 1.04 K/uL (0.11-0.59) H 11/25/22 06:50 Eos # (Auto) 0.17 K/uL (0-0.50) 11/25/22 06:50 Baso # (Auto) 0.09 K/uL (0-0.2) 11/25/22 06:50 Immature Gran # (Auto) 0.33 K/uL (0.01-0.20) H 11/25/22 06:50 ESR > 130 mm/hr (0-20) H 11/23/22 07:41 PT 20.8 Seconds (9.0-12.0) H 12/05/22 07:23 INR 2.0 (0.9-1.1) H 12/05/22 07:23 APTT 39.6 Seconds (21.0-31.0) H 11/11/22 13:17 PTT Ratio 1.4 11/11/22 13:17 Sodium 135 mmol/L (136-145) L 12/05/22 07:23 Potassium 4.1 mmol/L (3.5-5.1) 12/05/22 07:23 Chloride 100 mmol/L (98-107) 12/05/22 07:23 Carbon Dioxide 28 mmol/L (21-32) 12/05/22 07:23 Anion Gap 7 (3-11) 12/05/22 07:23 BUN 15 mg/dl (6-23) 12/05/22 07:23 Creatinine 0.99 mg/dl (0.6-1.4) 12/05/22 07:23 Est Cr Clr Drug Dosing 139.8 ml/min 12/05/22 07:23 Est GFR ( Amer) 95.5 ml/min 12/05/22 07:23 Est GFR (Non-Af Amer) 82.4 ml/min 12/05/22 07:23 BUN/Creatinine Ratio 15.2 (10-20) 12/05/22 07:23 Glucose 144 mg/dl (70-99(Fasting)) H 12/05/22 07:23 POC Glucose 129 mg/dl (70-99) H 12/05/22 11:25 Estimat Average Glucose 134 mg/dl 11/11/22 13:17 Hemoglobin A1c 6.3 % (4.5-5.6) H 11/11/22 13:17 Uric Acid Cancelled 11/23/22 07:57 Calcium 8.3 mg/dl (8.6-10.3) L 12/05/22 07:23 Phosphorus 3.1 mg/dl (2.5-4.9) 11/30/22 06:33 Magnesium 1.5 mg/dl (1.7-2.4) L 11/30/22 06:33 Total Bilirubin 0.7 mg/dl (0.2-1.0) 11/25/22 06:50 AST 45 U/L (13-39) H 11/25/22 06:50 ALT 25 U/L (7-52) 11/25/22 06:50 Alkaline Phosphatase 93 U/L (34-104) 11/25/22 06:50 Troponin I High Sens 6.7 pg/ml (0-20) 11/11/22 13:17 C-Reactive Protein 13.03 mg/dl (0-0.5) H 11/23/22 07:41 B-Natriuretic Peptide 132 pg/ml (0-100) H 11/11/22 13:17 Total Protein 8.1 gm/dl (6.0-8.3) 11/25/22 06:50 Albumin 2.8 gm/dl (3.4-5.0) L 11/25/22 06:50 Globulin 5.3 gm/dl (2.5-4.0) H 11/25/22 06:50 Albumin/Globulin Ratio 0.5 (0.9-2) L 11/25/22 06:50 Procalcitonin 2.68 ng/ml (0-0.5) H 11/17/22 06:05 Urine Color Yellow 11/11/22 15:19 Urine Appearance Clear (Clear) 11/11/22 15:19 Urine pH 5.0 (4.5-7.5) 11/11/22 15:19 Ur Specific Riddle 1.007 (1.000-1.030) 11/11/22 15:19 Urine Protein Negative (Negative) 11/11/22 15:19 Urine Glucose (UA) Negative (Negative) 11/11/22 15:19 Urine Ketones Negative (Negative) 11/11/22 15:19 Urine Blood 3+ (Negative) H 11/11/22 15:19 Urine Nitrite Negative (Negative) 11/11/22 15:19 Urine Bilirubin Negative (Negative) 11/11/22 15:19 Urine Urobilinogen Negative (Negative) 11/11/22 15:19 Ur Leukocyte Esterase Negative (Negative) 11/11/22 15:19 Urine WBC (Auto) 1-5 /hpf (0-5) 11/11/22 15:19 Urine RBC (Auto) 0-4 /hpf (0-4) 11/11/22 15:19 U Hyaline Cast (Auto) 1-5 /lpf (0-5) 11/11/22 15:19 U Epithel Cells (Auto) 5-10 /lpf (0-5) H 11/11/22 15:19 Urine Bacteria (Auto) Negative (Negative) 11/11/22 15:19 Stl C. diff Tox B Gene Negative Cdiff Gene (Neg) 11/28/22 Unknown SARS-CoV-2 (PCR) NEGATIVE (Negative) 11/11/22 13:17 Influenza Type A (PCR) Negative (Neg) 11/11/22 13:17 Influenza Type B (PCR) Negative (Neg) 11/11/22 13:17 RSV (RT-PCR) Negative (Neg) 11/11/22 13:17 Impressions Chest X-Ray 11/12/22 08:00 SINGLE VIEW CHEST CLINICAL HISTORY: Dyspnea FINDINGS: An AP, portable, upright chest radiograph is compared to study dated 11/11/2022. The examination is degraded by portable technique and apical lordotic positioning. The heart is enlarged. There is pulmonary vascular congestion and interstitial edema. Atelectasis is noted at the lung bases. No large pleural effusion or pneumothorax is identified. The bony thorax is grossly intact. IMPRESSION: Cardiomegaly with evidence of congestive failure and pulmonary edema. This is similar to yesterday. ACT 112: Negative or not required by law. Electronically signed by: Elbert Wen M.D. 11/12/2022 8:43 AM Venous Doppler Study 11/14/22 11:27 ULTRASOUND RIGHT LOWER EXTREMITY VENOUS CLINICAL HISTORY: Right leg. COMPARISON STUDY: Bilateral lower extremity venous ultrasound dated 09/15/2010. TECHNIQUE: Real-time, grayscale, and color Doppler sonography of the deep veins of the right lower extremity was performed from the inguinal crease to the calf. Compression and augmentation were utilized. FINDINGS: There is no sonographic evidence of deep venous thrombosis identified in the right lower extremity. The common femoral, superficial femoral, and popliteal veins are patent and normally compressible. The greater saphenous vein and the profunda femoris vein at the junction with the common femoral vein are clear. The visualized calf veins are patent. IMPRESSION: There is no sonographic evidence of deep venous thrombosis identified in the right lower extremity. ACT 112: Negative or not required by law. Electronically signed by: Elbert Wen M.D. 11/14/2022 2:02 PM Elbow X-Ray 11/22/22 11:29 XR elbow RT 2V HISTORY: 62 years-old Male Right elbow swelling acute pain and swelling of the right elbow COMPARISON: None TECHNIQUE: 2 views the right elbow FINDINGS: Mild to moderate dorsal soft tissue swelling. Small joint effusion. Moderate osteoarthritis. No acute fracture, dislocation or intra-articular loose body identified. IMPRESSION: 1. No acute fracture or dislocation identified. 2. Soft tissue swelling with small joint effusion. If there is clinical concern for an occult fracture, follow-up radiographs recommended in 10-14 days. 3. Moderate osteoarthritis. ACT 112: Negative or not required by law. The above report was generated using voice recognition software. It may contain grammatical, syntax or spelling errors. Electronically signed by: Fletcher Javier M.D. 11/22/2022 1:22 PM
[2022-12-05] MEDS: SODIUM CHLORIDE 0.9% 500 ML IV SCH ×2 (15:18→22:35)
[2022-12-05] MEDS: TRAMADOL 200 MG PO SCH (22:16)
[2022-12-05] MEDS: ATORVASTATIN 40 MG TAB PO SCH (22:16)
[2022-12-06] MEDS: ceFAZolin 2000MG 2,000 MG/15 ML SYR IV SCH ×3 (02:49→17:15)
[2022-12-06] MEDS: SODIUM CHLORIDE 0.9% 500 ML IV SCH ×2 (04:23→08:14)
[2022-12-06] MEDS: PANTOprazole 40 MG TAB PO SCH (05:39)
[2022-12-06 07:57] LABS: BUN Creatinine Ratio 21.1 (10-20); C Reactive Protein 17.67 mg/dl (0-0.5); Est GFR (African American) 85.1 ml/min; Est GFR (Non-African American) 73.4 ml/min; Potassium 4.3 mmol/L (3.5-5.1)
[2022-12-06] MEDS: ASPIRIN 81 MG ECTAB PO SCH (08:01)
[2022-12-06] MEDS: DICLOFENAC SOD 1% GEL 100 GM TUBE EXT SCH ×3 (08:01→20:27)
[2022-12-06] MEDS: METOPROLOL SUCC 50MG EXT REL TAB PO SCH ×2 (08:01→20:26)
[2022-12-06] MEDS: ONDANSETRON INJ 2 MG/ML 2 ML VIAL IV PRN (08:49)
[2022-12-06] MEDS: ACETAMINOPHEN 500 MG TAB PO PRN (08:49)
[2022-12-06] MEDS: SPIRONOLACTONE 12.5 MG TAB PO SCH (09:17)
[2022-12-06] MEDS: MICONAZOLE NITRATE POWDER 85 GM EXT PRN (11:02)
--- NOTE | 2022-12-06 12:04 | Hospitalist Progress Note ---
Date of Service December 06, 2022 Assessment & Plan (1) Acute on chronic diastolic heart failure with preserved ejection fraction: Plan: (1) Acute on chronic diastolic heart failure with preserved ejection fraction: Plan per previous hospitalist notes with addendum: 62-year-old male with PMH of SLE, T2DM, ROHIT on CPAP, A-fib on Coumadin, HTN, morbid obesity presented to the ED 11/11 with complaint of worsening shortness of breath and lower extremity swelling since last 2 to 3 days prior to arrival. Patient reports having recent " cold-like symptoms" and was treated with antibiotic by his PCP which he completed about 8 days ago [employer]. He denies any new fever or chills or myalgia or increasing cough. He reports that he does not follow heart healthy diet, and has increased salty food/chips intake. But he does report that his water intake is modest which he refers to as " two 16 ounces bottles a day of water". He reports SOB w/ minimal exertion at presentation. He is being managed for the following: Acute on chronic respiratory failure Acute on chronic heart failure with preserved ejection fraction Presented to ED with worsening shortness of breath and lower extremity swelling [see above], not on any diuretics since 1.5 years at presentation. Admitting CXR personally reviewed; has pulmonary edema, at admission BLE with 2+ pitting edema. At admission, BNP 132, EKG with A-fib with controlled rate. Echo with preserved ejection fraction. Patient diuresed well with IV Lasix -21 L fluid balance per records Presyncopal Secondary to orthostatic hypotension Discontinue diuretics for now. May restart hydrochlorothiazide if he becomes hypertensive Was given IV fluids. Encourage oral hydration. Diarrhea Resolved Diet advanced As needed Imodium Right elbow pain/swelling Possible gout flare On 11/22; patient reported pain and swelling on right elbow. No overlying skin changes present. X-ray of the elbow personally reviewed: soft tissue swelling with a small joint effusion. Discussed with orthopedics; patient likely due to arthritis. Patient recently started on diuretics; will treat empirically for gout flare ; treated with course of colchicine. Needs to be started on allopurinol as outpatient. Right forearm pain likely due to phlebitis Patient reporting severe pain in the right hand and wrist on 12/04 after IV at the forearm removed a day prior Start cefazolin every 8 hours Monitor closely Chronic A-fib Supratherapeutic INR INR 2.0 Continue Coumadin Bilateral knee pain Likely secondary to osteoarthritis Treated with Tylenol as needed. Continue using Voltaren gel He recently missed his scheduled b/l knee injection at Dr. Davis office, [facility] consulted, --s/p b/l knee injection 11/16. Pt reports improvement in his knee pain. Other chronic medical conditions:DM2, ROHIT [wears CPAP at home], HTN, HLD, GERD --- continue with home meds as able. Sliding scale insulin while in hospital. Disposition: PCP: Dr. Koch CODE STATUS: Full code VTE prophylaxis: On Coumadin DispoPT OT evaluation done; recommend rehab. Awaiting placement. Admission and Anticipated Discharge Date Admission Date: November 11, 2022 Subjective Patient seen and examined at bedside. He reports that his dizziness has slightly improved compared to yesterday. He continues to report feeling nauseous. Review of Systems Review of Systems: All systems reviewed & are unremarkable except as noted in Subjective Physical Exam Physical Exam: GENERAL: Alert and oriented x3. NAD, on RA, Morbidly obese. HEENT: No pallor, no icterus. Pupils equal, round and reactive to light. Oral mucosa moist. NECK: No JVD, no neck masses. HEART: S1 and S2 heard. Regular rate and rhythm. No murmur, no gallop. RESPIRATORY SYSTEM: Normal AP diameter. No accessory muscle use. No wheezing, b/b crackles. Decreased breath sounds overall MSKminimal edema on right wrist; mild warmth on hand and wrist. Range of motion of hand Improved compared to yesterday ABDOMEN: Soft, bowel sounds present, nontender, no distention. Lt abdomen w/ chronically indurated and raised areas w/ dry scales. CENTRAL NERVOUS SYSTEM: No facial droop. Speech is clear. Obeys simple commands. Moves extremities. EXTREMITIES: 1+ pitting edema. Results & Data Results & Data Vital Signs (Past 12 Hours) Vital Signs Temp Pulse Resp BP Pulse Ox O2 Del Method 12/06/22 11:26 36.5 C 95 H 20 120/62 95 Room Air 12/06/22 08:39 Room Air 12/06/22 07:33 36.7 C 82 20 123/79 94 Room Air 12/06/22 02:09 36.5 C 90 20 136/67 94 Room Air 12/06/22 00:11 Room Air Laboratory Results Laboratory Results WBC 8.21 K/ul (4.8-10.8) 11/25/22 06:50 RBC 4.89 M/uL (4.70-6.10) 11/25/22 06:50 Hgb 14.6 g/dl (14.0-18.0) 11/25/22 06:50 Hct 45.4 % (42.0-52.0) 11/25/22 06:50 MCV 92.8 fL (80.0-100.0) 11/25/22 06:50 MCH 29.9 pg (25.0-34.0) 11/25/22 06:50 MCHC 32.2 g/dL (32.0-36.0) 11/25/22 06:50 RDW Std Deviation 42.8 fL (36.4-46.3) 11/25/22 06:50 RDW Coeff of Zoila 12.6 % (11.5-14.5) 11/25/22 06:50 Plt Count 397 K/uL (130-400) 11/25/22 06:50 MPV 10.3 fL (9.4-12.4) 11/25/22 06:50 Immature Gran % (Auto) 4.0 % 11/25/22 06:50 Neut % (Auto) 64.9 % 11/25/22 06:50 Lymph % (Auto) 15.2 % 11/25/22 06:50 [place] % (Auto) 12.7 % 11/25/22 06:50 Eos % (Auto) 2.1 % 11/25/22 06:50 Baso % (Auto) 1.1 % 11/25/22 06:50 Neut # (Auto) 5.33 K/uL (1.40-6.50) 11/25/22 06:50 Lymph # (Auto) 1.25 K/uL (1.2-3.4) 11/25/22 06:50 [place] # (Auto) 1.04 K/uL (0.11-0.59) H 11/25/22 06:50 Eos # (Auto) 0.17 K/uL (0-0.50) 11/25/22 06:50 Baso # (Auto) 0.09 K/uL (0-0.2) 11/25/22 06:50 Immature Gran # (Auto) 0.33 K/uL (0.01-0.20) H 11/25/22 06:50 ESR > 130 mm/hr (0-20) H 11/23/22 07:41 PT 20.8 Seconds (9.0-12.0) H 12/05/22 07:23 INR 2.0 (0.9-1.1) H 12/05/22 07:23 APTT 39.6 Seconds (21.0-31.0) H 11/11/22 13:17 PTT Ratio 1.4 11/11/22 13:17 Sodium 134 mmol/L (136-145) L 12/06/22 06:28 Potassium 4.3 mmol/L (3.5-5.1) 12/06/22 06:28 Chloride 101 mmol/L (98-107) 12/06/22 06:28 Carbon Dioxide 25 mmol/L (21-32) 12/06/22 06:28 Anion Gap 8 (3-11) 12/06/22 06:28 BUN 23 mg/dl (6-23) 12/06/22 06:28 Creatinine 1.09 mg/dl (0.6-1.4) 12/06/22 06:28 Est Cr Clr Drug Dosing 127.0 ml/min 12/06/22 06:28 Est GFR ( Amer) 85.1 ml/min 12/06/22 06:28 Est GFR (Non-Af Amer) 73.4 ml/min 12/06/22 06:28 BUN/Creatinine Ratio 21.1 (10-20) H 12/06/22 06:28 Glucose 126 mg/dl (70-99(Fasting)) H 12/06/22 06:28 POC Glucose 129 mg/dl (70-99) H 12/06/22 11:39 Estimat Average Glucose 134 mg/dl 11/11/22 13:17 Hemoglobin A1c 6.3 % (4.5-5.6) H 11/11/22 13:17 Uric Acid Cancelled 11/23/22 07:57 Calcium 8.0 mg/dl (8.6-10.3) L 12/06/22 06:28 Phosphorus 3.1 mg/dl (2.5-4.9) 11/30/22 06:33 Magnesium 1.5 mg/dl (1.7-2.4) L 11/30/22 06:33 Total Bilirubin 0.7 mg/dl (0.2-1.0) 11/25/22 06:50 AST 45 U/L (13-39) H 11/25/22 06:50 ALT 25 U/L (7-52) 11/25/22 06:50 Alkaline Phosphatase 93 U/L (34-104) 11/25/22 06:50 Troponin I High Sens 6.7 pg/ml (0-20) 11/11/22 13:17 C-Reactive Protein 17.67 mg/dl (0-0.5) H 12/06/22 06:28 B-Natriuretic Peptide 132 pg/ml (0-100) H 11/11/22 13:17 Total Protein 8.1 gm/dl (6.0-8.3) 11/25/22 06:50 Albumin 2.8 gm/dl (3.4-5.0) L 11/25/22 06:50 Globulin 5.3 gm/dl (2.5-4.0) H 11/25/22 06:50 Albumin/Globulin Ratio 0.5 (0.9-2) L 11/25/22 06:50 Procalcitonin 2.68 ng/ml (0-0.5) H 11/17/22 06:05 Urine Color Yellow 11/11/22 15:19 Urine Appearance Clear (Clear) 11/11/22 15:19 Urine pH 5.0 (4.5-7.5) 11/11/22 15:19 Ur Specific [place] 1.007 (1.000-1.030) 11/11/22 15:19 Urine Protein Negative (Negative) 11/11/22 15:19 Urine Glucose (UA) Negative (Negative) 11/11/22 15:19 Urine Ketones Negative (Negative) 11/11/22 15:19 Urine Blood 3+ (Negative) H 11/11/22 15:19 Urine Nitrite Negative (Negative) 11/11/22 15:19 Urine Bilirubin Negative (Negative) 11/11/22 15:19 Urine Urobilinogen Negative (Negative) 11/11/22 15:19 Ur Leukocyte Esterase Negative (Negative) 11/11/22 15:19 Urine WBC (Auto) 1-5 /hpf (0-5) 11/11/22 15:19 Urine RBC (Auto) 0-4 /hpf (0-4) 11/11/22 15:19 U Hyaline Cast (Auto) 1-5 /lpf (0-5) 11/11/22 15:19 U Epithel Cells (Auto) 5-10 /lpf (0-5) H 11/11/22 15:19 Urine Bacteria (Auto) Negative (Negative) 11/11/22 15:19 Stl C. diff Tox B Gene Negative Cdiff Gene (Neg) 11/28/22 Unknown SARS-CoV-2 (PCR) NEGATIVE (Negative) 11/11/22 13:17 Influenza Type A (PCR) Negative (Neg) 11/11/22 13:17 Influenza Type B (PCR) Negative (Neg) 11/11/22 13:17 RSV (RT-PCR) Negative (Neg) 11/11/22 13:17 Impressions Chest X-Ray 11/12/22 08:00 SINGLE VIEW CHEST CLINICAL HISTORY: Dyspnea FINDINGS: An AP, portable, upright chest radiograph is compared to study dated 11/11/2022. The examination is degraded by portable technique and apical lordotic positioning. The heart is enlarged. There is pulmonary vascular congestion and interstitial edema. Atelectasis is noted at the lung bases. No large pleural effusion or pneumothorax is identified. The bony thorax is grossly intact. IMPRESSION: Cardiomegaly with evidence of congestive failure and pulmonary edema. This is similar to yesterday. ACT 112: Negative or not required by law. Electronically signed by: Elbert Wen M.D. 11/12/2022 8:43 AM Venous Doppler Study 11/14/22 11:27 ULTRASOUND RIGHT LOWER EXTREMITY VENOUS CLINICAL HISTORY: Right leg. COMPARISON STUDY: Bilateral lower extremity venous ultrasound dated 09/15/2010. TECHNIQUE: Real-time, grayscale, and color Doppler sonography of the deep veins of the right lower extremity was performed from the inguinal crease to the calf. Compression and augmentation were utilized. FINDINGS: There is no sonographic evidence of deep venous thrombosis identified in the right lower extremity. The common femoral, superficial femoral, and popliteal veins are patent and normally compressible. The greater saphenous vein and the profunda femoris vein at the junction with the common femoral vein are clear. The visualized calf veins are patent. IMPRESSION: There is no sonographic evidence of deep venous thrombosis identified in the right lower extremity. ACT 112: Negative or not required by law. Electronically signed by: Elbert Wen M.D. 11/14/2022 2:02 PM Elbow X-Ray 11/22/22 11:29 XR elbow RT 2V HISTORY: 62 years-old Male Right elbow swelling acute pain and swelling of the right elbow COMPARISON: None TECHNIQUE: 2 views the right elbow FINDINGS: Mild to moderate dorsal soft tissue swelling. Small joint effusion. Moderate osteoarthritis. No acute fracture, dislocation or intra-articular loose body identified. IMPRESSION: 1. No acute fracture or dislocation identified. 2. Soft tissue swelling with small joint effusion. If there is clinical concern for an occult fracture, follow-up radiographs recommended in 10-14 days. 3. Moderate osteoarthritis. ACT 112: Negative or not required by law. The above report was generated using voice recognition software. It may contain grammatical, syntax or spelling errors. Electronically signed by: Fletcher Javier M.D. 11/22/2022 1:22 PM
[2022-12-06] MEDS: WARFARIN SOD 1.25 MG TAB PO SCH (16:19)
[2022-12-06] MEDS: LACTATED RINGER'S 1,000 ML IV SCH (16:32)
[2022-12-06] MEDS: ATORVASTATIN 40 MG TAB PO SCH (20:26)
[2022-12-06] MEDS: TRAMADOL 200 MG PO SCH (21:51)
[2022-12-07] MEDS: LACTATED RINGER'S 1,000 ML IV SCH (00:53)
[2022-12-07] MEDS: ceFAZolin 2000MG 2,000 MG/15 ML SYR IV SCH (02:52)
[2022-12-07] MEDS: PANTOprazole 40 MG TAB PO SCH (06:02)
[2022-12-07] MEDS: ASPIRIN 81 MG ECTAB PO SCH (07:48)
[2022-12-07] MEDS: DICLOFENAC SOD 1% GEL 100 GM TUBE EXT SCH ×3 (07:49→21:53)
[2022-12-07] MEDS: METOPROLOL SUCC 50MG EXT REL TAB PO SCH ×2 (07:50→21:53)
[2022-12-07] MEDS: SPIRONOLACTONE 12.5 MG TAB PO SCH (07:50)
[2022-12-07] MEDS: cephALEXin 500 MG CAP PO SCH ×4 (09:18→21:51)
[2022-12-07 09:41] LABS: Basophils # (auto) 0.04 K/uL (0-0.2); Basophils % (auto) 0.4 %; Eosinophils # (auto) 0.14 K/uL (0-0.50); Eosinophils % (auto) 1.5 %; Hematocrit (blood only) 43.2 % (42.0-52.0); Hemoglobin 14.1 g/dl (14.0-18.0); Immature Granulocytes # (auto) 0.05 K/uL (0.01-0.20); Immature Granulocytes % (auto) 0.5 %; Lymphocytes # (auto) 1.29 K/uL (1.2-3.4); Lymphocytes % (auto) 13.9 %; Mean Corpuscular Hemoglobin 29.9 pg (25.0-34.0); Mean Corpuscular Hgb Conc 32.6 g/dL (32.0-36.0); Mean Corpuscular Volume 91.7 fL (80.0-100.0); Mean Platelet Volume 11.7 fL (9.4-12.4); Monocytes # (auto) 0.66 K/uL (0.11-0.59); Monocytes % (auto) 7.1 %; Neutrophils # (auto) 7.07 K/uL (1.40-6.50); Neutrophils % (auto) 76.6 %; Platelet Count 273 K/uL (130-400); RDW Coefficient of Variation 12.9 % (11.5-14.5); RDW Standard Deviation 43.5 fL (36.4-46.3); Red Blood Count 4.71 M/uL (4.70-6.10); White Blood Count 9.25 K/ul (4.8-10.8)
[2022-12-07 10:00] LABS: BUN Creatinine Ratio 22.6 (10-20); Calcium 8.3 mg/dl (8.6-10.3); Creatinine Clr Calc Pharmacy 130.6 ml/min; Est GFR (Non-African American) 75.9 ml/min; Potassium 4.1 mmol/L (3.5-5.1)
[2022-12-07 10:33] LABS: INR 1.7 (0.9-1.1); Prothrombin Time 17.3 Seconds (9.0-12.0)
--- NOTE | 2022-12-07 13:05 | Hospitalist Progress Note ---
Date of Service December 07, 2022 Assessment & Plan (1) Acute on chronic diastolic heart failure with preserved ejection fraction: Plan: (1) Acute on chronic diastolic heart failure with preserved ejection fraction: Plan per previous hospitalist notes with addendum: 62-year-old male with PMH of SLE, T2DM, ROHIT on CPAP, A-fib on Coumadin, HTN, morbid obesity presented to the ED 11/11 with complaint of worsening shortness of breath and lower extremity swelling since last 2 to 3 days prior to arrival. Patient reports having recent " cold-like symptoms" and was treated with antibiotic by his PCP which he completed about 8 days ago [employer]. He denies any new fever or chills or myalgia or increasing cough. He reports that he does not follow heart healthy diet, and has increased salty food/chips intake. But he does report that his water intake is modest which he refers to as " two 16 ounces bottles a day of water". He reports SOB w/ minimal exertion at presentation. He is being managed for the following: Acute on chronic respiratory failure Acute on chronic heart failure with preserved ejection fraction Presented to ED with worsening shortness of breath and lower extremity swelling [see above], not on any diuretics since 1.5 years at presentation. Admitting CXR personally reviewed; has pulmonary edema, at admission BLE with 2+ pitting edema. At admission, BNP 132, EKG with A-fib with controlled rate. Echo with preserved ejection fraction. Patient diuresed well with IV Lasix. He was diuresed 21L during the hospitalization Presyncopal Secondary to orthostatic hypotension Discontinue diuretics for now. May restart hydrochlorothiazide if he becomes hypertensive Was given IV fluids. Encourage oral hydration. Diarrhea Resolved Diet advanced As needed Imodium Right elbow pain/swelling Possible gout flare On 11/22; patient reported pain and swelling on right elbow. No overlying skin changes present. X-ray of the elbow personally reviewed: soft tissue swelling with a small joint effusion. Discussed with orthopedics; patient likely due to arthritis. Patient recently started on diuretics; was treated with colchicine Started on allopurinol 100 mg once daily. Will monitor for response with uric acid level next week. Uric acid measured earlier in the hospitalization was obtained. Right forearm pain likely due to phlebitis Patient reporting severe pain in the right hand and wrist on 12/04 after IV at the forearm removed a day prior Was started on cefazolin; improvement noted. Changed to Keflex; complete 5-day course Chronic A-fib Supratherapeutic INR INR subtherapeutic Continue on warfarin. Monitor INR closely. Bilateral knee pain Likely secondary to osteoarthritis Treated with Tylenol as needed. Continue using Voltaren gel He recently missed his scheduled b/l knee injection at Dr. Davis office, [facility] consulted, --s/p b/l knee injection 11/16. Pt reports improvement in his knee pain. Other chronic medical conditions:DM2, ROHIT [wears CPAP at home], HTN, HLD, GERD --- continue with home meds as able. Sliding scale insulin while in hospital. Disposition: PCP: Dr. Koch CODE STATUS: Full code VTE prophylaxis: On Coumadin DispoPT OT evaluation done; recommend rehab. Awaiting placement. Admission and Anticipated Discharge Date Admission Date: November 11, 2022 Subjective Patient seen and examined at bedside. He reports that he does not feel nauseous anymore. Denies any shortness of breath, chest pain or abdominal pain. Review of Systems Review of Systems: All systems reviewed & are unremarkable except as noted in Subjective Physical Exam Physical Exam: GENERAL: Alert and oriented x3. NAD, on RA, Morbidly obese. HEENT: No pallor, no icterus. Pupils equal, round and reactive to light. Oral mucosa moist. NECK: No JVD, no neck masses. HEART: S1 and S2 heard. Regular rate and rhythm. No murmur, no gallop. RESPIRATORY SYSTEM: Normal AP diameter. No accessory muscle use. No wheezing, b/b crackles. Decreased breath sounds overall MSKminimal edema on right wrist; mild warmth on hand and wrist. Range of motion of hand Improved compared to yesterday ABDOMEN: Soft, bowel sounds present, nontender, no distention. Lt abdomen w/ chronically indurated and raised areas w/ dry scales. CENTRAL NERVOUS SYSTEM: No facial droop. Speech is clear. Obeys simple commands. Moves extremities. EXTREMITIES: 1+ pitting edema. Results & Data Results & Data Vital Signs (Past 12 Hours) Vital Signs Temp Pulse Resp BP Pulse Ox O2 Del Method 12/07/22 11:00 36.6 C 87 18 117/72 93 Room Air 12/07/22 08:09 36.7 C 75 20 117/75 97 Room Air 12/07/22 04:00 36.5 C 96 H 18 117/76 94 Room Air Laboratory Results Laboratory Results WBC 9.25 K/ul (4.8-10.8) 12/07/22 09:11 RBC 4.71 M/uL (4.70-6.10) 12/07/22 09:11 Hgb 14.1 g/dl (14.0-18.0) 12/07/22 09:11 Hct 43.2 % (42.0-52.0) 12/07/22 09:11 MCV 91.7 fL (80.0-100.0) 12/07/22 09:11 MCH 29.9 pg (25.0-34.0) 12/07/22 09:11 MCHC 32.6 g/dL (32.0-36.0) 12/07/22 09:11 RDW Std Deviation 43.5 fL (36.4-46.3) 12/07/22 09:11 RDW Coeff of Zoila 12.9 % (11.5-14.5) 12/07/22 09:11 Plt Count 273 K/uL (130-400) 12/07/22 09:11 MPV 11.7 fL (9.4-12.4) 12/07/22 09:11 Immature Gran % (Auto) 0.5 % 12/07/22 09:11 Neut % (Auto) 76.6 % 12/07/22 09:11 Lymph % (Auto) 13.9 % 12/07/22 09:11 [place] % (Auto) 7.1 % 12/07/22 09:11 Eos % (Auto) 1.5 % 12/07/22 09:11 Baso % (Auto) 0.4 % 12/07/22 09:11 Neut # (Auto) 7.07 K/uL (1.40-6.50) H 12/07/22 09:11 Lymph # (Auto) 1.29 K/uL (1.2-3.4) 12/07/22 09:11 [place] # (Auto) 0.66 K/uL (0.11-0.59) H 12/07/22 09:11 Eos # (Auto) 0.14 K/uL (0-0.50) 12/07/22 09:11 Baso # (Auto) 0.04 K/uL (0-0.2) 12/07/22 09:11 Immature Gran # (Auto) 0.05 K/uL (0.01-0.20) 12/07/22 09:11 ESR > 130 mm/hr (0-20) H 11/23/22 07:41 PT 17.3 Seconds (9.0-12.0) H 12/07/22 09:11 INR 1.7 (0.9-1.1) H 12/07/22 09:11 APTT 39.6 Seconds (21.0-31.0) H 11/11/22 13:17 PTT Ratio 1.4 11/11/22 13:17 Sodium 134 mmol/L (136-145) L 12/07/22 09:11 Potassium 4.1 mmol/L (3.5-5.1) 12/07/22 09:11 Chloride 100 mmol/L (98-107) 12/07/22 09:11 Carbon Dioxide 24 mmol/L (21-32) 12/07/22 09:11 Anion Gap 10 (3-11) 12/07/22 09:11 BUN 24 mg/dl (6-23) H 12/07/22 09:11 Creatinine 1.06 mg/dl (0.6-1.4) 12/07/22 09:11 Est Cr Clr Drug Dosing 130.6 ml/min 12/07/22 09:11 Est GFR ( Amer) 88.0 ml/min 12/07/22 09:11 Est GFR (Non-Af Amer) 75.9 ml/min 12/07/22 09:11 BUN/Creatinine Ratio 22.6 (10-20) H 12/07/22 09:11 Glucose 185 mg/dl (70-99(Fasting)) H 12/07/22 09:11 POC Glucose 107 mg/dl (70-99) H 12/07/22 11:35 Estimat Average Glucose 134 mg/dl 11/11/22 13:17 Hemoglobin A1c 6.3 % (4.5-5.6) H 11/11/22 13:17 Uric Acid Cancelled 11/23/22 07:57 Calcium 8.3 mg/dl (8.6-10.3) L 12/07/22 09:11 Phosphorus 3.1 mg/dl (2.5-4.9) 11/30/22 06:33 Magnesium 1.5 mg/dl (1.7-2.4) L 11/30/22 06:33 Total Bilirubin 0.7 mg/dl (0.2-1.0) 11/25/22 06:50 AST 45 U/L (13-39) H 11/25/22 06:50 ALT 25 U/L (7-52) 11/25/22 06:50 Alkaline Phosphatase 93 U/L (34-104) 11/25/22 06:50 Troponin I High Sens 6.7 pg/ml (0-20) 11/11/22 13:17 C-Reactive Protein 17.67 mg/dl (0-0.5) H 12/06/22 06:28 B-Natriuretic Peptide 132 pg/ml (0-100) H 11/11/22 13:17 Total Protein 8.1 gm/dl (6.0-8.3) 11/25/22 06:50 Albumin 2.8 gm/dl (3.4-5.0) L 11/25/22 06:50 Globulin 5.3 gm/dl (2.5-4.0) H 11/25/22 06:50 Albumin/Globulin Ratio 0.5 (0.9-2) L 11/25/22 06:50 Procalcitonin 2.68 ng/ml (0-0.5) H 11/17/22 06:05 Urine Color Yellow 11/11/22 15:19 Urine Appearance Clear (Clear) 11/11/22 15:19 Urine pH 5.0 (4.5-7.5) 11/11/22 15:19 Ur Specific [place] 1.007 (1.000-1.030) 11/11/22 15:19 Urine Protein Negative (Negative) 11/11/22 15:19 Urine Glucose (UA) Negative (Negative) 11/11/22 15:19 Urine Ketones Negative (Negative) 11/11/22 15:19 Urine Blood 3+ (Negative) H 11/11/22 15:19 Urine Nitrite Negative (Negative) 11/11/22 15:19 Urine Bilirubin Negative (Negative) 11/11/22 15:19 Urine Urobilinogen Negative (Negative) 11/11/22 15:19 Ur Leukocyte Esterase Negative (Negative) 11/11/22 15:19 Urine WBC (Auto) 1-5 /hpf (0-5) 11/11/22 15:19 Urine RBC (Auto) 0-4 /hpf (0-4) 11/11/22 15:19 U Hyaline Cast (Auto) 1-5 /lpf (0-5) 11/11/22 15:19 U Epithel Cells (Auto) 5-10 /lpf (0-5) H 11/11/22 15:19 Urine Bacteria (Auto) Negative (Negative) 11/11/22 15:19 Stl C. diff Tox B Gene Negative Cdiff Gene (Neg) 11/28/22 Unknown SARS-CoV-2 (PCR) NEGATIVE (Negative) 11/11/22 13:17 Influenza Type A (PCR) Negative (Neg) 11/11/22 13:17 Influenza Type B (PCR) Negative (Neg) 11/11/22 13:17 RSV (RT-PCR) Negative (Neg) 11/11/22 13:17 Impressions Chest X-Ray 11/12/22 08:00 SINGLE VIEW CHEST CLINICAL HISTORY: Dyspnea FINDINGS: An AP, portable, upright chest radiograph is compared to study dated 11/11/2022. The examination is degraded by portable technique and apical lordotic positioning. The heart is enlarged. There is pulmonary vascular congestion and interstitial edema. Atelectasis is noted at the lung bases. No large pleural effusion or pneumothorax is identified. The bony thorax is grossly intact. IMPRESSION: Cardiomegaly with evidence of congestive failure and pulmonary edema. This is similar to yesterday. ACT 112: Negative or not required by law. Electronically signed by: Elbert Wen M.D. 11/12/2022 8:43 AM Venous Doppler Study 11/14/22 11:27 ULTRASOUND RIGHT LOWER EXTREMITY VENOUS CLINICAL HISTORY: Right leg. COMPARISON STUDY: Bilateral lower extremity venous ultrasound dated 09/15/2010. TECHNIQUE: Real-time, grayscale, and color Doppler sonography of the deep veins of the right lower extremity was performed from the inguinal crease to the calf. Compression and augmentation were utilized. FINDINGS: There is no sonographic evidence of deep venous thrombosis identified in the right lower extremity. The common femoral, superficial femoral, and popliteal veins are patent and normally compressible. The greater saphenous vein and the profunda femoris vein at the junction with the common femoral vein are clear. The visualized calf veins are patent. IMPRESSION: There is no sonographic evidence of deep venous thrombosis identified in the right lower extremity. ACT 112: Negative or not required by law. Electronically signed by: Elbert Wen M.D. 11/14/2022 2:02 PM Elbow X-Ray 11/22/22 11:29 XR elbow RT 2V HISTORY: 62 years-old Male Right elbow swelling acute pain and swelling of the right elbow COMPARISON: None TECHNIQUE: 2 views the right elbow FINDINGS: Mild to moderate dorsal soft tissue swelling. Small joint effusion. Moderate osteoarthritis. No acute fracture, dislocation or intra-articular loose body identified. IMPRESSION: 1. No acute fracture or dislocation identified. 2. Soft tissue swelling with small joint effusion. If there is clinical concern for an occult fracture, follow-up radiographs recommended in 10-14 days. 3. Moderate osteoarthritis. ACT 112: Negative or not required by law. The above report was generated using voice recognition software. It may contain grammatical, syntax or spelling errors. Electronically signed by: Fletcher Javier M.D. 11/22/2022 1:22 PM
[2022-12-07] MEDS: allopurinoL 100 MG TAB PO SCH (15:16)
[2022-12-07] MEDS: WARFARIN SOD 7.5 MG TAB PO SCH (16:21)
[2022-12-07] MEDS: TRAMADOL 200 MG PO SCH (21:50)
[2022-12-07] MEDS: ATORVASTATIN 40 MG TAB PO SCH (21:51)
[2022-12-08] MEDS: PANTOprazole 40 MG TAB PO SCH (06:31)
[2022-12-08 07:52] LABS: Basophils # (auto) 0.05 K/uL (0-0.2); Basophils % (auto) 0.7 %; Eosinophils # (auto) 0.13 K/uL (0-0.50); Eosinophils % (auto) 1.8 %; Hematocrit (blood only) 38.8 % (42.0-52.0); Hemoglobin 12.6 g/dl (14.0-18.0); Immature Granulocytes # (auto) 0.04 K/uL (0.01-0.20); Immature Granulocytes % (auto) 0.6 %; Lymphocytes # (auto) 0.84 K/uL (1.2-3.4); Lymphocytes % (auto) 11.7 %; Mean Corpuscular Hgb Conc 32.5 g/dL (32.0-36.0); Mean Corpuscular Volume 92.4 fL (80.0-100.0); Mean Platelet Volume 11.2 fL (9.4-12.4); Monocytes # (auto) 0.82 K/uL (0.11-0.59); Monocytes % (auto) 11.4 %; Neutrophils % (auto) 73.8 %; Platelet Count 221 K/uL (130-400); RDW Coefficient of Variation 12.9 % (11.5-14.5); RDW Standard Deviation 43.4 fL (36.4-46.3); White Blood Count 7.18 K/ul (4.8-10.8)
[2022-12-08 08:11] LABS: BUN Creatinine Ratio 22.7 (10-20); Calcium 8.2 mg/dl (8.6-10.3); Creatinine Clr Calc Pharmacy 157.2 ml/min; Est GFR (African American) 108.2 ml/min; Est GFR (Non-African American) 93.4 ml/min
[2022-12-08] MEDS: SPIRONOLACTONE 12.5 MG TAB PO SCH (09:08)
[2022-12-08] MEDS: ASPIRIN 81 MG ECTAB PO SCH (09:08)
[2022-12-08] MEDS: allopurinoL 100 MG TAB PO SCH (09:08)
[2022-12-08] MEDS: cephALEXin 500 MG CAP PO SCH (09:08)
[2022-12-08] MEDS: METOPROLOL SUCC 50MG EXT REL TAB PO SCH ×2 (09:09→20:13)
[2022-12-08] MEDS: DICLOFENAC SOD 1% GEL 100 GM TUBE EXT SCH ×3 (09:10→20:13)
--- NOTE | 2022-12-08 11:49 | Hospitalist Progress Note ---
Date of Service December 08, 2022 Assessment & Plan (1) Acute on chronic diastolic heart failure with preserved ejection fraction: Plan: (1) Acute on chronic diastolic heart failure with preserved ejection fraction: Plan per previous hospitalist notes with addendum: 62-year-old male with PMH of SLE, T2DM, ROHIT on CPAP, A-fib on Coumadin, HTN, morbid obesity presented to the ED 11/11 with complaint of worsening shortness of breath and lower extremity swelling since last 2 to 3 days prior to arrival. 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 He denies any new fever or chills or myalgia or increasing cough. He reports that he does not follow heart healthy diet, and has increased salty food/chips intake. But he does report that his water intake is modest which he refers to as " two 16 ounces bottles a day of water". He reports SOB w/ minimal exertion at presentation. He is being managed for the following: Acute on chronic respiratory failure Acute on chronic heart failure with preserved ejection fraction Presented to ED with worsening shortness of breath and lower extremity swelling [see above], not on any diuretics since 1.5 years at presentation. Admitting CXR personally reviewed; has pulmonary edema, at admission BLE with 2+ pitting edema. At admission, BNP 132, EKG with A-fib with controlled rate. Echo with preserved ejection fraction. Patient diuresed well with IV Lasix. He was diuresed 21L during the hospitalization Presyncopal Secondary to orthostatic hypotension Discontinue diuretics for now. May restart hydrochlorothiazide if he becomes hypertensive Was given IV fluids. Encourage oral hydration. Diarrhea Resolved Diet advanced As needed Imodium Right elbow pain/swelling Possible gout flare On 11/22; patient reported pain and swelling on right elbow. No overlying skin changes present. X-ray of the elbow personally reviewed: soft tissue swelling with a small joint effusion. Discussed with orthopedics; patient likely due to arthritis. Patient recently started on diuretics; was treated with colchicine Started on allopurinol 100 mg once daily. Will monitor for response with uric acid level next week. Uric acid measured earlier in the hospitalization was greater than 10. Right forearm pain likely due to phlebitis Patient reporting severe pain in the right hand and wrist on 12/04 after IV at the forearm removed a day prior Was started on cefazolin; improvement noted. Changed to Keflex; completed 5-day course Chronic A-fib Supratherapeutic INR INR subtherapeutic Continue on warfarin. Monitor INR closely. Bilateral knee pain Likely secondary to osteoarthritis Treated with Tylenol as needed. Continue using Voltaren gel He recently missed his scheduled b/l knee injection at Dr. Davis office, [facility] consulted, --s/p b/l knee injection 11/16. Pt reports improvement in his knee pain. Other chronic medical conditions:DM2, ROHIT [wears CPAP at home], HTN, HLD, GERD --- continue with home meds as able. Sliding scale insulin while in hospital. Disposition: PCP: Dr. Koch CODE STATUS: Full code VTE prophylaxis: On Coumadin DispoPT OT evaluation done; recommend rehab. Awaiting placement. Admission and Anticipated Discharge Date Admission Date: November 11, 2022 Subjective Patient seen and examined at bedside. He reports that he no longer has nausea or dizziness. Saturating well on room air. Review of Systems Review of Systems: All systems reviewed & are unremarkable except as noted in Subjective Physical Exam Physical Exam: GENERAL: Alert and oriented x3. NAD, on RA, Morbidly obese. HEENT: No pallor, no icterus. Pupils equal, round and reactive to light. Oral mucosa moist. NECK: No JVD, no neck masses. HEART: S1 and S2 heard. Regular rate and rhythm. No murmur, no gallop. RESPIRATORY SYSTEM: Normal AP diameter. No accessory muscle use. No wheezing, b/b crackles. Decreased breath sounds overall MSKminimal edema on right wrist; mild warmth on hand and wrist. Range of motion of hand Improved compared to yesterday ABDOMEN: Soft, bowel sounds present, nontender, no distention. Lt abdomen w/ chronically indurated and raised areas w/ dry scales. CENTRAL NERVOUS SYSTEM: No facial droop. Speech is clear. Obeys simple co mmands. Moves extremities. EXTREMITIES: 1+ pitting edema. Results & Data Results & Data Vital Signs (Past 12 Hours) Vital Signs Temp Pulse Resp BP BP Pulse Ox O2 Del Method 12/08/22 11:22 36.8 C 98 H 18 115/73 94 Room Air 12/08/22 07:55 36.7 C 81 20 108/72 92 Room Air 12/08/22 04:05 36.8 C 81 20 106/63 93 Room Air 12/07/22 23:50 37.0 C 84 20 114/66 93 Room Air Laboratory Results Laboratory Results WBC 7.18 K/ul (4.8-10.8) 12/08/22 07:21 RBC 4.20 M/uL (4.70-6.10) L 12/08/22 07:21 Hgb 12.6 g/dl (14.0-18.0) L 12/08/22 07:21 Hct 38.8 % (42.0-52.0) L 12/08/22 07:21 MCV 92.4 fL (80.0-100.0) 12/08/22 07: MCH 30.0 pg (25.0-34.0) 12/08/22 07: MCHC 32.5 g/dL (32.0-36.0) 12/08/22 07: RDW Std Deviation 43.4 fL (36.4-46.3) 12/08/22 07: RDW Coeff of Zoila 12.9 % (11.5-14.5) 12/08/22 07:21 Plt Count 221 K/uL (130-400) 12/08/22 07:21 MPV 11.2 fL (9.4-12.4) 12/08/22 07:21 Immature Gran % (Auto) 0.6 % 12/08/22 07:21 Neut % (Auto) 73.8 % 12/08/22 07:21 Lymph % (Auto) 11.7 % 12/08/22 07:21 [place] % (Auto) 11.4 % 12/08/22 07:21 Eos % (Auto) 1.8 % 12/08/22 07:21 Baso % (Auto) 0.7 % 12/08/22 07:21 Neut # (Auto) 5.30 K/uL (1.40-6.50) 12/08/22 07:21 Lymph # (Auto) 0.84 K/uL (1.2-3.4) L 12/08/22 07:21 [place] # (Auto) 0.82 K/uL (0.11-0.59) H 12/08/22 07:21 Eos # (Auto) 0.13 K/uL (0-0.50) 12/08/22 07:21 Baso # (Auto) 0.05 K/uL (0-0.2) 12/08/22 07:21 Immature Gran # (Auto) 0.04 K/uL (0.01-0.20) 12/08/22 07:21 ESR > 130 mm/hr (0-20) H 11/23/22 07:41 PT 17.3 Seconds (9.0-12.0) H 12/07/22 09:11 INR 1.7 (0.9-1.1) H 12/07/22 09:11 APTT 39.6 Seconds (21.0-31.0) H 11/11/22 13:17 PTT Ratio 1.4 11/11/22 13:17 Sodium 136 mmol/L (136-145) 12/08/22 07:21 Potassium 4.0 mmol/L (3.5-5.1) 12/08/22 07:21 Chloride 101 mmol/L (98-107) 12/08/22 07:21 Carbon Dioxide 28 mmol/L (21-32) 12/08/22 07:21 Anion Gap 7 (3-11) 12/08/22 07:21 BUN 20 mg/dl (6-23) 12/08/22 07:21 Creatinine 0.88 mg/dl (0.6-1.4) 12/08/22 07:21 Est Cr Clr Drug Dosing 157.2 ml/min 12/08/22 07:21 Est GFR ( Amer) 108.2 ml/min 12/08/22 07:21 Est GFR (Non-Af Amer) 93.4 ml/min 12/08/22 07:21 BUN/Creatinine Ratio 22.7 (10-20) H 12/08/22 07:21 Glucose 118 mg/dl (70-99(Fasting)) H 12/08/22 07:21 POC Glucose 86 mg/dl (70-99) 12/08/22 11:42 Estimat Average Glucose 134 mg/dl 11/11/22 13:17 Hemoglobin A1c 6.3 % (4.5-5.6) H 11/11/22 13:17 Uric Acid Cancelled 11/23/22 07:57 Calcium 8.2 mg/dl (8.6-10.3) L 12/08/22 07:21 Phosphorus 3.1 mg/dl (2.5-4.9) 11/30/22 06:33 Magnesium 1.5 mg/dl (1.7-2.4) L 11/30/22 06:33 Total Bilirubin 0.7 mg/dl (0.2-1.0) 11/25/22 06:50 AST 45 U/L (13-39) H 11/25/22 06:50 ALT 25 U/L (7-52) 11/25/22 06:50 Alkaline Phosphatase 93 U/L (34-104) 11/25/22 06:50 Troponin I High Sens 6.7 pg/ml (0-20) 11/11/22 13:17 C-Reactive Protein 17.67 mg/dl (0-0.5) H 12/06/22 06:28 B-Natriuretic Peptide 132 pg/ml (0-100) H 11/11/22 13:17 Total Protein 8.1 gm/dl (6.0-8.3) 11/25/22 06:50 Albumin 2.8 gm/dl (3.4-5.0) L 11/25/22 06:50 Globulin 5.3 gm/dl (2.5-4.0) H 11/25/22 06:50 Albumin/Globulin Ratio 0.5 (0.9-2) L 11/25/22 06:50 Procalcitonin 2.68 ng/ml (0-0.5) H 11/17/22 06:05 Urine Color Yellow 11/11/22 15:19 Urine Appearance Clear (Clear) 11/11/22 15:19 Urine pH 5.0 (4.5-7.5) 11/11/22 15:19 Ur Specific [place] 1.007 (1.000-1.030) 11/11/22 15:19 Urine Protein Negative (Negative) 11/11/22 15:19 Urine Glucose (UA) Negative (Negative) 11/11/22 15:19 Urine Ketones Negative (Negative) 11/11/22 15:19 Urine Blood 3+ (Negative) H 11/11/22 15:19 Urine Nitrite Negative (Negative) 11/11/22 15:19 Urine Bilirubin Negative (Negative) 11/11/22 15:19 Urine Urobilinogen Negative (Negative) 11/11/22 15:19 Ur Leukocyte Esterase Negative (Negative) 11/11/22 15:19 Urine WBC (Auto) 1-5 /hpf (0-5) 11/11/22 15:19 Urine RBC (Auto) 0-4 /hpf (0-4) 11/11/22 15:19 U Hyaline Cast (Auto) 1-5 /lpf (0-5) 11/11/22 15:19 U Epithel Cells (Auto) 5-10 /lpf (0-5) H 11/11/22 15:19 Urine Bacteria (Auto) Negative (Negative) 11/11/22 15:19 Stl C. diff Tox B Gene Negative Cdiff Gene (Neg) 11/28/22 Unknown SARS-CoV-2 (PCR) NEGATIVE (Negative) 11/11/22 13:17 Influenza Type A (PCR) Negative (Neg) 11/11/22 13:17 Influenza Type B (PCR) Negative (Neg) 11/11/22 13:17 RSV (RT-PCR) Negative (Neg) 11/11/22 13:17 Impressions Chest X-Ray 11/12/22 08:00 SINGLE VIEW CHEST CLINICAL HISTORY: Dyspnea FINDINGS: An AP, portable, upright chest radiograph is compared to study dated 11/11/2022. The examination is degraded by portable technique and apical lordotic positioning. The heart is enlarged. There is pulmonary vascular congestion and interstitial edema. Atelectasis is noted at the lung bases. No large pleural effusion or pneumothorax is identified. The bony thorax is grossly intact. IMPRESSION: Cardiomegaly with evidence of congestive failure and pulmonary edema. This is similar to yesterday. ACT 112: Negative or not required by law. Electronically signed by: Elbert Wen M.D. 11/12/2022 8:43 AM Venous Doppler Study 11/14/22 11:27 ULTRASOUND RIGHT LOWER EXTREMITY VENOUS CLINICAL HISTORY: Right leg. COMPARISON STUDY: Bilateral lower extremity venous ultrasound dated 09/15/2010. TECHNIQUE: Real-time, grayscale, and color Doppler sonography of the deep veins of the right lower extremity was performed from the inguinal crease to the calf. Compression and augmentation were utilized. FINDINGS: There is no sonographic evidence of deep venous thrombosis identified in the right lower extremity. The common femoral, superficial femoral, and popliteal veins are patent and normally compressible. The greater saphenous vein and the profunda femoris vein at the junction with the common femoral vein are clear. The visualized calf veins are patent. IMPRESSION: There is no sonographic evidence of deep venous thrombosis identified in the right lower extremity. ACT 112: Negative or not required by law. Electronically signed by: Elbert Wen M.D. 11/14/2022 2:02 PM Elbow X-Ray 11/22/22 11:29 XR elbow RT 2V HISTORY: 62 years-old Male Right elbow swelling acute pain and swelling of the right elbow COMPARISON: None TECHNIQUE: 2 views the right elbow FINDINGS: Mild to moderate dorsal soft tissue swelling. Small joint effusion. Moderate osteoarthritis. No acute fracture, dislocation or intra-articular loose body identified. IMPRESSION: 1. No acute fracture or dislocation identified. 2. Soft tissue swelling with small joint effusion. If there is clinical concern for an occult fracture, follow-up radiographs recommended in 10-14 days. 3. Moderate osteoarthritis. ACT 112: Negative or not required by law. The above report was generated using voice recognition software. It may contain grammatical, syntax or spelling errors. Electronically signed by: Fletcher Javier M.D. 11/22/2022 1:22 PM
[2022-12-08] MEDS: WARFARIN SOD 1.25 MG TAB PO SCH (16:26)
[2022-12-08] MEDS: ATORVASTATIN 40 MG TAB PO SCH (20:13)
[2022-12-08] MEDS: TRAMADOL 200 MG PO SCH (20:58)
[2022-12-09] MEDS: PANTOprazole 40 MG TAB PO SCH (05:46)
[2022-12-09 07:35] LABS: Basophils # (auto) 0.04 K/uL (0-0.2); Basophils % (auto) 0.7 %; Eosinophils # (auto) 0.12 K/uL (0-0.50); Eosinophils % (auto) 2.2 %; Hemoglobin 12.9 g/dl (14.0-18.0); Immature Granulocytes # (auto) 0.04 K/uL (0.01-0.20); Immature Granulocytes % (auto) 0.7 %; Lymphocytes # (auto) 1.04 K/uL (1.2-3.4); Lymphocytes % (auto) 19.2 %; Mean Corpuscular Hemoglobin 29.7 pg (25.0-34.0); Mean Corpuscular Hgb Conc 32.3 g/dL (32.0-36.0); Mean Corpuscular Volume 92.2 fL (80.0-100.0); Mean Platelet Volume 11.3 fL (9.4-12.4); Monocytes # (auto) 0.73 K/uL (0.11-0.59); Monocytes % (auto) 13.4 %; Neutrophils # (auto) 3.46 K/uL (1.40-6.50); Neutrophils % (auto) 63.8 %; Platelet Count 219 K/uL (130-400); Red Blood Count 4.34 M/uL (4.70-6.10); White Blood Count 5.43 K/ul (4.8-10.8)
[2022-12-09] MEDS: METOPROLOL SUCC 50MG EXT REL TAB PO SCH ×2 (08:00→20:58)
[2022-12-09] MEDS: SPIRONOLACTONE 12.5 MG TAB PO SCH (08:00)
[2022-12-09] MEDS: allopurinoL 100 MG TAB PO SCH (08:00)
[2022-12-09] MEDS: ASPIRIN 81 MG ECTAB PO SCH (08:01)
[2022-12-09] MEDS: DICLOFENAC SOD 1% GEL 100 GM TUBE EXT SCH ×3 (08:01→20:57)
[2022-12-09 08:31] LABS: INR 2.3 (0.9-1.1); Prothrombin Time 23.5 Seconds (9.0-12.0)
--- NOTE | 2022-12-09 11:46 | Hospitalist Progress Note ---
Date of Service December 09, 2022 Assessment & Plan (1) Acute on chronic diastolic heart failure with preserved ejection fraction: Plan: (1) Acute on chronic diastolic heart failure with preserved ejection fraction: Plan per previous hospitalist notes with addendum: 62-year-old male with PMH of SLE, T2DM, ROHIT on CPAP, A-fib on Coumadin, HTN, morbid obesity presented to the ED 11/11 with complaint of worsening shortness of breath and lower extremity swelling since last 2 to 3 days prior to arrival. 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 He denies any new fever or chills or myalgia or increasing cough. He reports that he does not follow heart healthy diet, and has increased salty food/chips intake. But he does report that his water intake is modest which he refers to as " two 16 ounces bottles a day of water". He reports SOB w/ minimal exertion at presentation. He is being managed for the following: Acute on chronic respiratory failure Acute on chronic heart failure with preserved ejection fraction Presented to ED with worsening shortness of breath and lower extremity swelling [see above], not on any diuretics since 1.5 years at presentation. Admitting CXR personally reviewed; has pulmonary edema, at admission BLE with 2+ pitting edema. At admission, BNP 132, EKG with A-fib with controlled rate. Echo with preserved ejection fraction. Patient diuresed well with IV Lasix. He was diuresed 21L during the hospitalization Presyncopal Secondary to orthostatic hypotension Discontinue diuretics for now. May restart hydrochlorothiazide if he becomes hypertensive Was given IV fluids. Encourage oral hydration. Diarrhea Resolved Diet advanced As needed Imodium Right elbow pain/swelling Possible gout flare On 11/22; patient reported pain and swelling on right elbow. No overlying skin changes present. X-ray of the elbow personally reviewed: soft tissue swelling with a small joint effusion. Discussed with orthopedics; patient likely due to arthritis. Patient recently started on diuretics; was treated with colchicine Started on allopurinol 100 mg once daily. Will monitor for response with uric acid level next week. Uric acid measured earlier in the hospitalization was greater than 10. Right forearm pain likely due to phlebitis Patient reporting severe pain in the right hand and wrist on 12/04 after IV at the forearm removed a day prior Was started on cefazolin; improvement noted. Changed to Keflex; completed 5-day course Chronic A-fib Supratherapeutic INR INR subtherapeutic Continue on warfarin. Monitor INR closely. Bilateral knee pain Likely secondary to osteoarthritis Treated with Tylenol as needed. Continue using Voltaren gel He recently missed his scheduled b/l knee injection at Dr. Davis office, [facility] consulted, --s/p b/l knee injection 11/16. Pt reports improvement in his knee pain. Other chronic medical conditions:DM2, ROHIT [wears CPAP at home], HTN, HLD, GERD --- continue with home meds as able. Sliding scale insulin while in hospital. Disposition: PCP: Dr. Koch CODE STATUS: Full code VTE prophylaxis: On Coumadin DispoPT OT evaluation done; recommend rehab. Awaiting placement. Patient relates that he is ready to go back home. Discussed with his at bedside extensively; she feels that the patient has shown significant improvement and is willing to have him back home. Possible discharge in a.m. tomorrow. Admission and Anticipated Discharge Date Admission Date: November 11, 2022 Subjective Patient seen and examined at bedside. He reports that he is feeling much better. He reports that he has been able to get up to the bathroom with some assistance. No episode of dizziness or nausea. Review of Systems Review of Systems: All systems reviewed & are unremarkable except as noted in Subjective Physical Exam Physical Exam: GENERAL: Alert and oriented x3. NAD, on RA, Morbidly obese. HEENT: No pallor, no icterus. Pupils equal, round and reactive to light. Oral mucosa moist. NECK: No JVD, no neck masses. HEART: S1 and S2 heard. Regular rate and rhythm. No murmur, no gallop. RESPIRATORY SYSTEM: Normal AP diameter. No accessory muscle use. No wheezing, b/b crackles. Decreased breath sounds overall MSKminimal edema on right wrist; mild warmth on hand and wrist. Range of motion of hand Improved compared to yesterday ABDOMEN: Soft, bowel sounds present, nontender, no distention. Lt abdomen w/ chronically indurated and raised areas w/ dry scales. CENTRAL NERVOUS SYSTEM: No facial droop. Speech is clear. Obeys simple commands. Moves extremities. EXTREMITIES: 1+ pitting edema. Results & Data Results & Data Vital Signs (Past 12 Hours) Vital Signs Temp Pulse Pulse Resp BP Pulse Ox O2 Del Method 12/09/22 08:00 72 12/09/22 08:02 36.4 C L 94 H 20 157/96 H 93 Room Air 12/09/22 03:32 36.5 C 86 20 116/52 L 92 Room Air 12/09/22 00:16 80 12/08/22 23:56 36.6 C 89 20 115/65 97 Room Air Laboratory Results Laboratory Results WBC 5.43 K/ul (4.8-10.8) 12/09/22 06:43 RBC 4.34 M/uL (4.70-6.10) L 12/09/22 06:43 Hgb 12.9 g/dl (14.0-18.0) L 12/09/22 06:43 Hct 40.0 % (42.0-52.0) L 12/09/22 06:43 MCV 92.2 fL (80.0-100.0) 12/09/22 06:43 MCH 29.7 pg (25.0-34.0) 12/09/22 06:43 MCHC 32.3 g/dL (32.0-36.0) 12/09/22 06:43 RDW Std Deviation 44.0 fL (36.4-46.3) 12/09/22 06:43 RDW Coeff of Zoila 13.0 % (11.5-14.5) 12/09/22 06:43 Plt Count 219 K/uL (130-400) 12/09/22 06:43 MPV 11.3 fL (9.4-12.4) 12/09/22 06:43 Immature Gran % (Auto) 0.7 % 12/09/22 06:43 Neut % (Auto) 63.8 % 12/09/22 06:43 Lymph % (Auto) 19.2 % 12/09/22 06:43 [place] % (Auto) 13.4 % 12/09/22 06:43 Eos % (Auto) 2.2 % 12/09/22 06:43 Baso % (Auto) 0.7 % 12/09/22 06:43 Neut # (Auto) 3.46 K/uL (1.40-6.50) 12/09/22 06:43 Lymph # (Auto) 1.04 K/uL (1.2-3.4) L 12/09/22 06:43 [place] # (Auto) 0.73 K/uL (0.11-0.59) H 12/09/22 06:43 Eos # (Auto) 0.12 K/uL (0-0.50) 12/09/22 06:43 Baso # (Auto) 0.04 K/uL (0-0.2) 12/09/22 06:43 Immature Gran # (Auto) 0.04 K/uL (0.01-0.20) 12/09/22 06:43 ESR > 130 mm/hr (0-20) H 11/23/22 07:41 PT 23.5 Seconds (9.0-12.0) H 12/09/22 06:43 INR 2.3 (0.9-1.1) H 12/09/22 06:43 APTT 39.6 Seconds (21.0-31.0) H 11/11/22 13:17 PTT Ratio 1.4 11/11/22 13:17 Sodium 136 mmol/L (136-145) 12/08/22 07:21 Potassium 4.0 mmol/L (3.5-5.1) 12/08/22 07:21 Chloride 101 mmol/L (98-107) 12/08/22 07:21 Carbon Dioxide 28 mmol/L (21-32) 12/08/22 07:21 Anion Gap 7 (3-11) 12/08/22 07:21 BUN 20 mg/dl (6-23) 12/08/22 07:21 Creatinine 0.88 mg/dl (0.6-1.4) 12/08/22 07:21 Est Cr Clr Drug Dosing 157.2 ml/min 12/08/22 07:21 Est GFR ( Amer) 108.2 ml/min 12/08/22 07:21 Est GFR (Non-Af Amer) 93.4 ml/min 12/08/22 07:21 BUN/Creatinine Ratio 22.7 (10-20) H 12/08/22 07:21 Glucose 118 mg/dl (70-99(Fasting)) H 12/08/22 07:21 POC Glucose 111 mg/dl (70-99) H 12/09/22 11:21 Estimat Average Glucose 134 mg/dl 11/11/22 13:17 Hemoglobin A1c 6.3 % (4.5-5.6) H 11/11/22 13:17 Uric Acid Cancelled 11/23/22 07:57 Calcium 8.2 mg/dl (8.6-10.3) L 12/08/22 07:21 Phosphorus 3.1 mg/dl (2.5-4.9) 11/30/22 06:33 Magnesium 1.5 mg/dl (1.7-2.4) L 11/30/22 06:33 Total Bilirubin 0.7 mg/dl (0.2-1.0) 11/25/22 06:50 AST 45 U/L (13-39) H 11/25/22 06:50 ALT 25 U/L (7-52) 11/25/22 06:50 Alkaline Phosphatase 93 U/L (34-104) 11/25/22 06:50 Troponin I High Sens 6.7 pg/ml (0-20) 11/11/22 13:17 C-Reactive Protein 17.67 mg/dl (0-0.5) H 12/06/22 06:28 B-Natriuretic Peptide 132 pg/ml (0-100) H 11/11/22 13:17 Total Protein 8.1 gm/dl (6.0-8.3) 11/25/22 06:50 Albumin 2.8 gm/dl (3.4-5.0) L 11/25/22 06:50 Globulin 5.3 gm/dl (2.5-4.0) H 11/25/22 06:50 Albumin/Globulin Ratio 0.5 (0.9-2) L 11/25/22 06:50 Procalcitonin 2.68 ng/ml (0-0.5) H 11/17/22 06:05 Urine Color Yellow 11/11/22 15:19 Urine Appearance Clear (Clear) 11/11/22 15:19 Urine pH 5.0 (4.5-7.5) 11/11/22 15:19 Ur Specific [place] 1.007 (1.000-1.030) 11/11/22 15:19 Urine Protein Negative (Negative) 11/11/22 15:19 Urine Glucose (UA) Negative (Negative) 11/11/22 15:19 Urine Ketones Negative (Negative) 11/11/22 15:19 Urine Blood 3+ (Negative) H 11/11/22 15:19 Urine Nitrite Negative (Negative) 11/11/22 15:19 Urine Bilirubin Negative (Negative) 11/11/22 15:19 Urine Urobilinogen Negative (Negative) 11/11/22 15:19 Ur Leukocyte Esterase Negative (Negative) 11/11/22 15:19 Urine WBC (Auto) 1-5 /hpf (0-5) 11/11/22 15:19 Urine RBC (Auto) 0-4 /hpf (0-4) 11/11/22 15:19 U Hyaline Cast (Auto) 1-5 /lpf (0-5) 11/11/22 15:19 U Epithel Cells (Auto) 5-10 /lpf (0-5) H 11/11/22 15:19 Urine Bacteria (Auto) Negative (Negative) 11/11/22 15:19 Stl C. diff Tox B Gene Negative Cdiff Gene (Neg) 11/28/22 Unknown SARS-CoV-2 (PCR) NEGATIVE (Negative) 11/11/22 13:17 Influenza Type A (PCR) Negative (Neg) 11/11/22 13:17 Influenza Type B (PCR) Negative (Neg) 11/11/22 13:17 RSV (RT-PCR) Negative (Neg) 11/11/22 13:17 Impressions Chest X-Ray 11/12/22 08:00 SINGLE VIEW CHEST CLINICAL HISTORY: Dyspnea FINDINGS: An AP, portable, upright chest radiograph is compared to study dated 11/11/2022. The examination is degraded by portable technique and apical lordotic positioning. The heart is enlarged. There is pulmonary vascular congestion and interstitial edema. Atelectasis is noted at the lung bases. No large pleural effusion or pneumothorax is identified. The bony thorax is grossly intact. IMPRESSION: Cardiomegaly with evidence of congestive failure and pulmonary edema. This is similar to yesterday. ACT 112: Negative or not required by law. Electronically signed by: Elbert Wen M.D. 11/12/2022 8:43 AM Venous Doppler Study 11/14/22 11:27 ULTRASOUND RIGHT LOWER EXTREMITY VENOUS CLINICAL HISTORY: Right leg. COMPARISON STUDY: Bilateral lower extremity venous ultrasound dated 09/15/2010. TECHNIQUE: Real-time, grayscale, and color Doppler sonography of the deep veins of the right lower extremity was performed from the inguinal crease to the calf. Compression and augmentation were utilized. FINDINGS: There is no sonographic evidence of deep venous thrombosis identified in the right lower extremity. The common femoral, superficial femoral, and popliteal veins are patent and normally compressible. The greater saphenous vein and the profunda femoris vein at the junction with the common femoral vein are clear. The visualized calf veins are patent. IMPRESSION: There is no sonographic evidence of deep venous thrombosis identified in the right lower extremity. ACT 112: Negative or not required by law. Electronically signed by: Elbert Wen M.D. 11/14/2022 2:02 PM Elbow X-Ray 11/22/22 11:29 XR elbow RT 2V HISTORY: 62 years-old Male Right elbow swelling acute pain and swelling of the right elbow COMPARISON: None TECHNIQUE: 2 views the right elbow FINDINGS: Mild to moderate dorsal soft tissue swelling. Small joint effusion. Moderate osteoarthritis. No acute fracture, dislocation or intra-articular loose body identified. IMPRESSION: 1. No acute fracture or dislocation identified. 2. Soft tissue swelling with small joint effusion. If there is clinical concern for an occult fracture, follow-up radiographs recommended in 10-14 days. 3. Moderate osteoarthritis. ACT 112: Negative or not required by law. The above report was generated using voice recognition software. It may contain grammatical, syntax or spelling errors. Electronically signed by: Fletcher Javier M.D. 11/22/2022 1:22 PM
[2022-12-09] MEDS: WARFARIN SOD 1.25 MG TAB PO SCH (16:07)
[2022-12-09] MEDS: ATORVASTATIN 40 MG TAB PO SCH (20:57)
[2022-12-09] MEDS: TRAMADOL 200 MG PO SCH (20:58)
[2022-12-10] MEDS: PANTOprazole 40 MG TAB PO SCH (05:40)
[2022-12-10 07:32] LABS: Basophils # (auto) 0.05 K/uL (0-0.2); Basophils % (auto) 0.9 %; Eosinophils # (auto) 0.13 K/uL (0-0.50); Eosinophils % (auto) 2.4 %; Hematocrit (blood only) 40.5 % (42.0-52.0); Hemoglobin 13.3 g/dl (14.0-18.0); Immature Granulocytes # (auto) 0.02 K/uL (0.01-0.20); Immature Granulocytes % (auto) 0.4 %; Lymphocytes # (auto) 1.05 K/uL (1.2-3.4); Lymphocytes % (auto) 19.6 %; Mean Corpuscular Hemoglobin 29.7 pg (25.0-34.0); Mean Corpuscular Hgb Conc 32.8 g/dL (32.0-36.0); Mean Corpuscular Volume 90.4 fL (80.0-100.0); Mean Platelet Volume 11.1 fL (9.4-12.4); Monocytes # (auto) 0.68 K/uL (0.11-0.59); Monocytes % (auto) 12.7 %; Neutrophils # (auto) 3.42 K/uL (1.40-6.50); Platelet Count 206 K/uL (130-400); RDW Coefficient of Variation 12.9 % (11.5-14.5); RDW Standard Deviation 42.5 fL (36.4-46.3); Red Blood Count 4.48 M/uL (4.70-6.10); White Blood Count 5.35 K/ul (4.8-10.8)
[2022-12-10] MEDS: METOPROLOL SUCC 50MG EXT REL TAB PO SCH (07:35)
[2022-12-10] MEDS: allopurinoL 100 MG TAB PO SCH (07:35)
[2022-12-10] MEDS: ASPIRIN 81 MG ECTAB PO SCH (07:35)
[2022-12-10] MEDS: DICLOFENAC SOD 1% GEL 100 GM TUBE EXT SCH (07:35)
[2022-12-10] MEDS: SPIRONOLACTONE 12.5 MG TAB PO SCH (07:35)
--- NOTE | 2022-12-10 12:00 | Discharge Summary ---
Date of Service December 10, 2022 Admission HPI Per Admitting Provider Mr. Curry is a 62-year-old male who presented to the ED today with shortness of breath and a persistent cough along with lower extremity swelling. He was given Amoxicillin as an outpatient and completed it last Saturday. He would feel short of breath just ambulating to the bathroom. When he sits down, he does desaturate based on his home SPO2 monitoring system ranging 84-92%. Patient reports that he has been drinking water at home lately "two 16 oz bottles per day". He does not follow a heart healthy diet. He reports that he did take diuretics up until the past 1.5 years. He noted the increased lower extremity swelling over the past couple of days. He does not check his weight at home. Chest x-ray consistent with mild pulmonary edema. BNP mildly elevated at 132 and no known documented heart failure. Chest x-ray findings and bilateral lower extremity swelling suspect a component of heart failure; do not suspect DVT is therapeutic on Coumadin as well. No personal medicla history of CVA or AMI. Father from AMI and also had a CVA. Last ECHO 2016 without detailed findings. No diastolic dysfunction. Per , pt does perform IADL's. He does use two canes to assist with ambulation. Patient denies tobacco use, alcohol use, or recreational drug use. In the room, the patient just returned from the bathroom and was audibly short of breath, SPO2 82-84%. Additional past medical history includes atrial fibrillation (on Coumadin), ROHIT, HTN, HLD, obesity, DM 2, and GERD. Patient will be admitted for further evaluation and management. Please see A/P for further details. Admission Exam Per Admitting Provider Neuro: (-) Falls, trauma, slurred speech HEENT: (-) [place], dizziness, dysphagia, visual or auditory changes CV: (-) CP, palpitations, swelling Resp: (-) SOB GI: (-) appetite changes, N/V/D, bowel changes : (-) urinary changes Skin: (-) rashes Psych: (-) anxiety, depression Principal Diagnosis Acute on chronic respiratory failure Acute on chronic heart failure with preserved ejection fraction Presyncopal Secondary to orthostatic hypotension Possible gout flare Discharge Exam GENERAL: Alert and oriented x3. NAD, on RA, Morbidly obese. HEENT: No pallor, no icterus. Pupils equal, round and reactive to light. Oral mucosa moist. NECK: No JVD, no neck masses. HEART: S1 and S2 heard. Regular rate and rhythm. No murmur, no gallop. RESPIRATORY SYSTEM: Normal AP diameter. No accessory muscle use. No wheezing, b/b crackles. Decreased breath sounds overall MSKminimal edema on right wrist; mild warmth on hand and wrist. Range of motion of hand Improved compared to yesterday ABDOMEN: Soft, bowel sounds present, nontender, no distention. Lt abdomen w/ chronically indurated and raised areas w/ dry scales. CENTRAL NERVOUS SYSTEM: No facial droop. Speech is clear. Obeys simple commands. Moves extremities. EXTREMITIES: 1+ pitting edema. Discharge Data Allergies Allergy/AdvReac Type Severity Reaction Status Date / Time No Known Allergies Allergy Mild Verified 11/11/22 14:55 Consultations 11/11/22 14:32 Consult Cardiology Routine 11/11/22 14:59 ED Decision to Admit Stat 11/15/22 17:37 Consult Orthopedic Surgery Routine Ordered Studies 11/14/22 11:27 US venous duplex leg [US venous doppler LE RT] Routine Hospital Course (1) Acute on chronic diastolic heart failure with preserved ejection fraction: 62-year-old male with PMH of SLE, T2DM, ROHIT on CPAP, A-fib on Coumadin, HTN, morbid obesity presented to the ED 11/11 with complaint of worsening shortness of breath and lower extremity swelling since last 2 to 3 days prior to arrival. Patient reports having recent " cold-like symptoms" and was treated with antibiotic by his PCP which he completed about 8 days ago [facility]. He denies any new fever or chills or myalgia or increasing cough. He reports that he does not follow heart healthy diet, and has increased salty food/chips intake. But he does report that his water intake is modest which he refers to as " two 16 ounces bottles a day of water". He reports SOB w/ minimal exertion at presentation. He was managed for the following during the hospitalization: 1) Acute on chronic respiratory failure Acute on chronic heart failure with preserved ejection fraction Presented to ED with worsening shortness of breath and lower extremity swelling [see above], not on any diuretics since 1.5 years at presentation. Admitting CXR personally has pulmonary edema, at admission BLE with 2+ pitting edema. At admission, BNP 132, EKG with A-fib with controlled rate. Echo with preserved ejection fraction. During the hospitalization, patient diuresed with IV Lasix. He was diuresed 21L. Patient started to have symptoms of presyncope (dizziness) . He was found to have orthostatic hypotension. Lasix was discontinued and was made as needed at discharge. Cardiology was also consulted during the hos pitalization for comanagement. They recommended patient to be started on spironolactone and metoprolol. 2) Right elbow pain/swelling Possible gout flare On 11/22; patient reported pain and swelling on right elbow. No overlying skin changes present. X-ray of the elbow personally reviewed: soft tissue swelling with a small joint effusion. He was treated with colchicine with good response. Uric acid was found to be greater than 10. He was started on allopurinol 100 mg once daily. 3) Bilateral knee pain Likely secondary to osteoarthritis Treated with Tylenol as needed. Continue using Voltaren gel He recently missed his scheduled b/l knee injection at Dr. Davis office, [facility] consulted, --s/p b/l knee injection 11/16. Pt reports improvement in his knee pain. PT OT evaluation was done done; recommend rehab. Patient should continue improvement on his mobility. Discussed with his at bedside extensively; she feels that the patient has shown significant improvement and is willing to have him back home. Discharged home with home health. Please note the above document was generated using voice recognition software. It may contain grammatical, syntax or spelling errors. Any formal questions or concerns about the content, text or information contained within the body of this dictation should be directly addressed to the provider for clarification Total Time Total Time Spent Total Time Spent (In Minutes): 40 Total Time Includes: Examination of the Patient, Discharge Planning, Medication Reconciliation, Communication With Other Providers and Other Discharge Plan Discharge Items Patient Disposition: Home - Home Health Services Reason For Visit: SOB Discharge Diagnosis: Acute on chronic respiratory failure Acute on chronic heart failure with preserved ejection fraction gout flare Condition on Discharge: Fair Activity: Resume your previous activity Non-emergency contact: Primary Care Provider Call non-emergency contact if: you have any medication questions Follow-up/Referrals: Jamey Koch MD [Primary Care Provider] - (Date & Time 12/13/2022 3:00 PM Provider Jamey Koch MD Department [facility] ) Diet: Regular Addtl Attending Provider Instructions: You were admitted to the hospital with shortness of breath and lower extremity swelling. You were treated with diuretics during the hospitalization. You are prescribed Lasix 20 mg once daily to be taken on an as-needed basis if you notice increasing leg swelling and your weight increases by 3 to 4 pounds. You are also prescribed metoprolol 50 mg to be taken twice daily. You are also prescribed spironolactone to be taken once daily. You were also found to have high uric acid level for which you are prescribed allopurinol 100 mg once daily. You need to have repeat blood work done for monitoring uric acid level as outpatient. Please continue to take all other medication as prescribed before. An appointment is set up for you with your primary care doctor on December 13. Pending Studies at Discharge: No Stand-Alone Forms: [employer], Smoking Cessation Medications and DC Order Prescriptions: New metoprolol succinate 50 mg Tablet Extended Release 24 Hr 50 mg PO BID Qty: 30 0RF allopurinol 100 mg Tablet 100 mg PO DAILY Qty: 30 0RF acetaminophen [Tylenol Extra Strength] 500 mg Tablet 1,000 mg PO Q8H PRN (Reason: pain) Qty: 60 0RF spironolactone 25 mg Tablet 12.5 mg PO QAM Qty: 30 0RF diclofenac sodium [Voltaren Arthritis Pain] 1 % Gel 2 g EXT TID Qty: 100 0RF furosemide [Lasix] 20 mg tablet 20 mg PO DAILY PRN (Reason: edema) Qty: 30 0RF Continued atorvastatin 40 mg tablet 40 mg PO HS albuterol sulfate 90 mcg/actuation HFA aerosol inhaler 2 puff INHALATION QID aspirin 81 mg Capsule 81 mg PO QAM warfarin 7.5 mg tablet 7.5 mg PO 3XWK Rx Instructions: Mon,Wed,Fri warfarin 7.5 mg tablet 3.75 mg PO 4XWK Rx Instructions: ,,SAT,SUN omeprazole 40 mg capsule,delayed release(DR/EC) 40 mg PO DAILYBB Discontinued benazepril 40 mg tablet 40 mg PO QAM metoprolol tartrate 50 mg tablet 50 mg PO BID tramadol 200 mg tablet extended release 24 hr 200 mg PO HS Discharge Orders: Discharge Order- CHF (Routine); Ordered 12/10/22 Ordered By: Rell Nj/Other Patient Handouts: A1C, 5 Steps for Eating Healthier Admission Data Admit Date/Time: 11/11/22 14:32 Attending Provider: Rell Garza Admit Provider: Yao Valencia Primary Care Provider: Jamey Koch Other Providers: Maik Javire ; Yao Valencia ; [facility] ; Chandrakant Sapp ; Viktor Faye ; Columba Madera ; Edilson Davis ; Bree Olea ; Luis Matamoros ; Marcelino Stevens ; Isaiah Guerrero An drew J. ; Marcelino Negron ; Ren Mckay ; Nicolas Daniel ; Osvaldo Albright ; Froy Forrest ; Bree Gordon ; Alfredo Balderas ; Chetan Travis ; Mary Ramírez ; Sha Post ; Juan Dsouza ; Tammie Mcknight ; Fletcher Brink ; Rosalva Rubin. ; Dayen Collins ; [facility] ; [facility] ; [facility] ; Rell Garza ; [facility] ; [facility] Other Interventions: Discharge Summary Assessment (RN) Last Done: 12/10/22 10:25
== END 2022-12-10 10:54 | disposition home health service (06) | DRG 291 ==
LOC: ED 12:21 → 2N 14:32 → SUATTDRO 14:32 → 2N 16:00

== ENCOUNTER 2022-12-12 09:19 | Inpatient (IN) ==
--- NOTE | 2022-12-12 09:25 | Emergency Department Note ---
Impression & Plan Generalized weakness, DM2 (diabetes mellitus, type 2), Morbid obesity, Chronic atrial fibrillation, Ambulatory dysfunction, Hypomagnesemia ED Provider Note NAME: KALIA CALDERÓN AGE: 62 SEX: M : 1960 ARRIVES VIA: Ambulance INFORMANT: Patient, ED PROVIDER(S): Melvin Clement MD CHIEF COMPLAINT: Weakness MEDICAL DECISION MAKING: Patient presented due to concern for worsening weakness at home. IV was established blood was obtained along with a COVID swab. The patient's blood work shows normal white count H&H and platelet count. INR elevated at 3.5. The patient's initial blood sugar of 149. Magnesium low at 1.1. BNP is 111. The patient's weight has been stable. I did speak the on- call hospitalist service and given the patient's weakness the patient was admitted likely pending placement/rehab. Spoke with MARIBEL Candelaria and the patient was to be admitted by Dr. Wagoner. Prior /Outside records reviewed: I did review the patient's most recent discharge summary which was 2 days prior by the [facility] hospitalist service. Patient was admitted during that time with acute on chronic respiratory failure acute on chronic heart failure with preserved ejection fraction. The patient was diuresed with IV Lasix and diuresed 21 L. Patient had not been on any diuretics prior to this. Patient's Lasix was discontinued made as needed at the time of discharge due to concern for orthostatic hypotension. Patient's duration of hospitalization was quite prolonged. It appears as though the patient had been admitted in mid October and was just discharged 2 days ago Differential diagnosis: Infection, dehydration, metabolic abnormality, hypo/hyperglycemia, electrolyte disturbance, anemia, hypoxia, cardiac sources, intracerebral event, toxicologic, neurologic, as well as other pathologies. Diagnostics, as interpreted by me: ECG: A-fib, rate of 117, normal QRS, normal axis no ST elevations, possible T w ave inversions in the lateral leads. Cardiac monitoring: An order was placed for continuous cardiac monitoring. The monitor shows a rate of 92 with irregularly irregular rhythm. Patient was placed on pulse oximetry Medical decision rules: None Imaging studies: See below HPI: Patient presents due to concern for worsening weakness. The patient did have a recent prolonged hospitalization due to concern for volume overload. Patient states that he was compliant with his medications yesterday and was discharged on Saturday. The patient denies any chest pains or shortness of breath. The patient states that he was using his walker to get to the treatment this morning and felt very weak especially in his lower extremities. No back pain patient denies any headache or neck pain. Patient did take his Lasix yesterday. Patient did not take any of his morning medications today. Patient has a known history of A-fib and is on chronic anticoagulation. The patient states that it was recommended that he go to rehab around the time of his discharge but was difficult finding a facility that would take him to accommodate his weight as he is almost 200 kg. Patient denies any numbness in t he bilateral lower extremities PAST MEDICAL HISTORY: See Below PAST SURGICAL HISTORY: See Below SOCIAL HISTORY: See Below HOME MEDICATIONS: See Below ALLERGIES: See Below VITALS: See Below PHYSICAL EXAMINATION: GENERAL: NAD, wearing a mask, non-toxic. BMI 58 EYE EXAM: Normal conjunctiva. PERRL, no anisocoria and EOM's grossly intact w/o pain. NECK: Supple, no nuchal rigidity, no adenopathy, non-tender. No signs of meningismus. FROM of the neck with good chin to chest and neck extension. No stridor. LUNGS: Clear to auscultation. Normal chest wall mechanics. HEART: Irregularly irregular, no MRG. ABDOMEN: Abdomen soft, non-tender, no masses, no rebound or guarding. BACK: No CVA TTP. SKIN: No rashes and no bruising. UPPER EXTREMITIES: Upper extremities are grossly normal. LOWER EXTREMITIES: Grossly normal, nonpitting edema, neurovascular intact distally and sensate. NEURO EXAM: A&O x3, cranial nerves II-XII grossly intact, normal speech, moves all 4 extremities. Past Med/Surg History Medical History Chronic atrial fibrillation Chronic heart failure with preserved ejection fraction (HFpEF) Chronic venous stasis DM2 (diabetes mellitus, type 2) GERD (gastroesophageal reflux disease) Gout HLD (hyperlipidemia) HTN (hypertension) Morbid obesity ROHIT (obstructive sleep apnea) Shortness of breath Surgical History H/O arthroscopic knee surgery Family History Other Heart disease Hypertension Social History Smoking Status: Never smoker Hx Alcohol Use: No Hx Substance Use: No Preferred Language: Pashto Communication Ability: Effective Financial Service Representative Required: No Beliefs That Will Affect Care: None Current Living Situation: Alone Other Information That Helps Us Care for You: No Feels Safe at Home: Yes Safety Concerns: Feels Safe At This Time Assistive Devices: BiPap, Cane and Walker Allergies Allergies Allergy/AdvReac Type Severity Reaction Status Date / Time No Known Allergies Allergy Mild Verified 11/11/22 14:55 Home Meds Home Medications Medication Instructions Recorded Confirmed albuterol sulfate 90 mcg/actuation 2 puff inhalation QID PRN 11/11/22 12/12/22 aerosol inhaler Shortness Of Breath aspirin 81 mg capsule 81 mg PO QAM 11/11/22 12/12/22 atorvastatin 40 mg tablet 40 mg PO HS 11/11/22 12/12/22 omeprazole 40 mg capsule,delayed 40 mg PO DAILYBB 11/11/22 12/12/22 release warfarin 7.5 mg tablet 3.75 mg PO 4XWK 11/11/22 12/12/22 warfarin 7.5 mg tablet 7.5 mg PO 3XWK 11/11/22 12/12/22 tramadol 200 mg tablet,extended 200 mg PO HS 12/12/22 12/12/22 release 24 hr Previous Rx's Medication Instructions Recorded acetaminophen 500 mg tablet 1,000 mg PO Q8H PRN pain #60 tabs 12/09/22 (Tylenol Extra Strength) allopurinol 100 mg tablet 100 mg PO DAILY #30 tabs 12/09/22 diclofenac sodium 1 % topical gel 2 g EXT TID #100 grams 12/09/22 (Voltaren Arthritis Pain) furosemide 20 mg tablet (Lasix) 20 mg PO DAILY PRN edema #30 tabs 12/09/22 metoprolol succinate 50 mg 50 mg PO BID #30 tabs 12/09/22 tablet,extended release 24 hr spironolactone 25 mg tablet 12.5 mg PO QAM #30 tabs 12/09/22 Results & Data (ED) Vital Signs Vital Signs - 24 hr 12/12/22 09:33 12/12/22 09:49 12/12/22 11:51 Temperature 36.9 C Temperature Source Oral Pulse Rate 72 111 H Pulse Rate [Apical] 90 Pulse Rhythm [Apical] Regular Respiratory Rate 18 20 Respiratory Effort / Characteristics Non-Labored Spontaneous Respiratory Depth Normal Respiratory Pattern Regular Blood Pressure 109/77 Blood Pressure [Right Arm] 132/99 Blood Pressure Mean 87 Blood Pressure Mean [Right Arm] 110 Blood Pressure Position [Right Arm] Lying Pulse Oximetry 95 96 Oxygen Delivery Method Room Air Room Air Sepsis Recent Fever Within 48 Hours No Sepsis New/Unexplained Change in Mental Status No Sepsis Action Taken by Nursing No Action Required Home Medications Current Medication List: was personally reviewed by me Laboratory Data Attestation: I reviewed the patient's lab results. 12/12/22 09:33 12/12/22 09:33 Lab Results 12/12/22 12/12/22 12/12/22 Range/Units 09:33 09:33 09:33 WBC 8.92 (4.8-10.8) K/ul RBC 4.93 (4.70-6.10) M/uL Hgb 14.5 (14.0-18.0) g/dl Hct 44.6 (42.0-52.0) % MCV 90.5 (80.0-100.0) fL MCH 29.4 (25.0-34.0) pg MCHC 32.5 (32.0-36.0) g/dL RDW Std Deviation 44.4 (36.4-46.3) fL RDW Coeff of Zoila 13.3 (11.5-14.5) % Plt Count 303 (130-400) K/uL MPV 10.8 (9.4-12.4) fL Immature Gran % (Auto) 0.4 % Neut % (Auto) 80.6 % Lymph % (Auto) 9.9 % [place] % (Auto) 7.6 % Eos % (Auto) 1.1 % Baso % (Auto) 0.4 % Neut # (Auto) 7.18 H (1.40-6.50) K/uL Lymph # (Auto) 0.88 L (1.2-3.4) K/uL [place] # (Auto) 0.68 H (0.11-0.59) K/uL Eos # (Auto) 0.10 (0-0.50) K/uL Baso # (Auto) 0.04 (0-0.2) K/uL Immature Gran # (Auto) 0.04 (0.01-0.20) K/uL PT 37.5 H (9.0-12.0) Seconds INR 3.8 H (0.9-1.1) Sodium 137 (136-145) mmol/L Potassium 3.8 (3.5-5.1) mmol/L Chloride 100 (98-107) mmol/L Carbon Dioxide 22 (21-32) mmol/L Anion Gap 15 H (3-11) BUN 18 (6-23) mg/dl Creatinine 1.27 (0.6-1.4) mg/dl Est Cr Clr Drug Dosing 109.0 ml/min Est GFR ( Amer) 70.7 ml/min Est GFR (Non-Af Amer) 61.0 ml/min BUN/Creatinine Ratio 14.2 (10-20) Glucose 149 H (70-99(Fasting)) mg/dl Calcium 8.6 (8.6-10.3) mg/dl Magnesium 1.1 L (1.7-2.4) mg/dl Total Bilirubin 0.7 (0.2-1.0) mg/dl AST 33 (13-39) U/L ALT 22 (7-52) U/L Alkaline Phosphatase 142 H (34-104) U/L Troponin I High Sens 7.3 (0-20) pg/ml B-Natriuretic Peptide (0-100) pg/ml Total Protein 7.4 (6.0-8.3) gm/dl Albumin 3.1 L (3.4-5.0) gm/dl Globulin 4.3 H (2.5-4.0) gm/dl Albumin/Globulin Ratio 0.7 L (0.9-2) TSH (0.300-4.500) uIu/ml SARS-CoV-2, RNA, NAAT (NEGATIVE) 12/12/22 12/12/22 12/12/22 Range/Units 09:33 09:33 10:08 WBC (4.8-10.8) K/ul RBC (4.70-6.10) M/uL Hgb (14.0-18.0) g/dl Hct (42.0-52.0) % MCV (80.0-100.0) fL MCH (25.0-34.0) pg MCHC (32.0-36.0) g/dL RDW Std Deviation (36.4-46.3) fL RDW Coeff of Zoila (11.5-14.5) % Plt Count (130-400) K/uL MPV (9.4-12.4) fL Immature Gran % (Auto) % Neut % (Auto) % Lymph % (Auto) % [place] % (Auto) % Eos % (Auto) % Baso % (Auto) % Neut # (Auto) (1.40-6.50) K/uL Lymph # (Auto) (1.2-3.4) K/uL [place] # (Auto) (0.11-0.59) K/uL Eos # (Auto) (0-0.50) K/uL Baso # (Auto) (0-0.2) K/uL Immature Gran # (Auto) (0.01-0.20) K/uL PT (9.0-12.0) Seconds INR (0.9-1.1) Sodium (136-145) mmol/L Potassium (3.5-5.1) mmol/L Chloride (98-107) mmol/L Carbon Dioxide (21-32) mmol/L Anion Gap (3-11) BUN (6-23) mg/dl Creatinine (0.6-1.4) mg/dl Est Cr Clr Drug Dosing ml/min Est GFR ( Amer) ml/min Est GFR (Non-Af Amer) ml/min BUN/Creatinine Ratio (10-20) Glucose (70-99(Fasting)) mg/dl Calcium (8.6-10.3) mg/dl Magnesium (1.7-2.4) mg/dl Total Bilirubin (0.2-1.0) mg/dl AST (13-39) U/L ALT (7-52) U/L Alkaline Phosphatase (34-104) U/L Troponin I High Sens (0-20) pg/ml B-Natriuretic Peptide 111 H (0-100) pg/ml Total Protein (6.0-8.3) gm/dl Albumin (3.4-5.0) gm/dl Globulin (2.5-4.0) gm/dl Albumin/Globulin Ratio (0.9-2) TSH 2.607 (0.300-4.500) uIu/ml SARS-CoV-2, RNA, NAAT NEGATIVE (NEGATIVE) Administered Medications Magnesium Sulfate/Dextrose (Magnesium Sulfate / D5w) 1 gm in 100 mls @ 50 mls/hr IV Q2H CHIVO Stop: 12/12/22 20:14 Last Admin: 12/12/22 16:30 Dose: 50 mls/hr Documented By: MARIAELENA Discontinued Medications Magnesium Sulfate/Dextrose (Magnesium Sulfate / D5w) 1 gm in 100 mls @ 100 ml s/hr IV NOW STA Stop: 12/12/22 13:32 Last Infusion: 12/12/22 14:38 Dose: 0 mls/hr Documented By: Admin: 12/12/22 13:37 Dose: 100 mls/hr Documented By: ERIKA Metoprolol Succinate (Metoprolol Succ 50mg Ext Rel Tab) 50 mg PO NOW STA Stop: 12/12/22 12:52 Last Admin: 12/12/22 13:38 Dose: 50 mg Documented By: ERIKA Potassium Chloride (Potassium Chloride Crtab 20 Meq Tabcr) 20 meq PO NOW STA Stop: 12/12/22 12:54 Last Admin: 12/12/22 13:38 Dose: 20 meq Documented By: ERIKA Tramadol HCl (Tramadol Hcl 50 Mg Tablet) 50 mg PO NOW STA Stop: 12/12/22 12:52 Last Admin: 12/12/22 13:37 Dose: 50 mg Documented By: ERIKA Discharge Plan Visit Data Chief Complaint: Weakness Stated Complaint: WEAKNESS, NAUSEA ED Provider: Melvin Clement Discharge Problem: Generalized weakness, DM2 (diabetes mellitus, type 2), Morbid obesity, Chronic atrial fibrillation, Ambulatory dysfunction, Hypomagnesemia Patient Disposition: Admitted As Inpatient Discharge Instructions Interventions: ED Discharge Assessment Last Done: 12/12/22 15:48
[2022-12-12 10:19] LABS: Basophils # (auto) 0.04 K/uL (0-0.2); Basophils % (auto) 0.4 %; Eosinophils % (auto) 1.1 %; Hematocrit (blood only) 44.6 % (42.0-52.0); Hemoglobin 14.5 g/dl (14.0-18.0); Immature Granulocytes # (auto) 0.04 K/uL (0.01-0.20); Immature Granulocytes % (auto) 0.4 %; Lymphocytes # (auto) 0.88 K/uL (1.2-3.4); Lymphocytes % (auto) 9.9 %; Mean Corpuscular Hemoglobin 29.4 pg (25.0-34.0); Mean Corpuscular Hgb Conc 32.5 g/dL (32.0-36.0); Mean Corpuscular Volume 90.5 fL (80.0-100.0); Mean Platelet Volume 10.8 fL (9.4-12.4); Monocytes # (auto) 0.68 K/uL (0.11-0.59); Monocytes % (auto) 7.6 %; Neutrophils # (auto) 7.18 K/uL (1.40-6.50); Neutrophils % (auto) 80.6 %; Platelet Count 303 K/uL (130-400); RDW Coefficient of Variation 13.3 % (11.5-14.5); RDW Standard Deviation 44.4 fL (36.4-46.3); Red Blood Count 4.93 M/uL (4.70-6.10); White Blood Count 8.92 K/ul (4.8-10.8)
[2022-12-12 10:38] LABS: Albumin Globulin Ratio 0.7 (0.9-2); Albumin Level 3.1 gm/dl (3.4-5.0); BUN Creatinine Ratio 14.2 (10-20); Bilirubin,Total 0.7 mg/dl (0.2-1.0); Calcium 8.6 mg/dl (8.6-10.3); Est GFR (African American) 70.7 ml/min; Globulin 4.3 gm/dl (2.5-4.0); Magnesium 1.1 mg/dl (1.7-2.4); Potassium 3.8 mmol/L (3.5-5.1); Total Protein 7.4 gm/dl (6.0-8.3)
[2022-12-12 10:44] LABS: Troponin I High Sensitivity 7.3 pg/ml (0-20)
[2022-12-12 10:54] LABS: INR 3.8 (0.9-1.1); Prothrombin Time 37.5 Seconds (9.0-12.0)
--- NOTE | 2022-12-12 12:16 | History & Physical Report ---
Date of Service December 12, 2022 Assessment & Plan (1) Generalized weakness: (2) Ambulatory dysfunction: Plan: Patient is 62-year-old male with PMH chronic atrial fibrillation anticoagulated on warfarin, diet-controlled DM II, HTN, HLD, chronic heart failure with pr eserved EF, ROHIT, gout, GERD, morbid obesity presented to ER with complaint of generalized weakness and ambulatory dysfunction. Recent hospitalization with d/c 2 days ago. Rehab was recommended by PT/OT during that admission however no bariatric bed available and patient wished to go home. Unable to ambulate at home. Denies falls Fall precautions PT/OT eval Will need case management assistance for likely rehab (3) Hypomagnesemia: Plan: Magnesium: 1.1 Replace and monitor Noted patient had hypomagnesemia during last admission. May need chronic supplementation (4) Chronic atrial fibrillation: Plan: Chronic anticoagulated on warfarin Current rate controlled Patient missed morning metoprolol. Will dose now Continue metoprolol succinate INR: 3.8 Hold warfarin tonight INR in a.m. for further warfarin dosing (5) DM2 (diabetes mellitus, type 2): Plan: Diet controlled A1c: 6.3 on 11/11/2022 Diabetic diet Monitor BSG on morning labs. If trending high may need to add routine BSG checks and NovoLog sliding scale (6) Chronic heart failure with preserved ejection fraction (HFpEF): Plan: Appears euvolemic currently 11/12/2022 echo: Limited secondary to body habitus. Normal LV systolic function. Unable to evaluate valvular structures Continue spironolactone Has Lasix to use as needed. Monitor volume status closely to consider further Lasix dosages (7) HTN (hypertension): Plan: Recent discharge benazepril was discontinued Monitor BP Continue metoprolol succinate, spironolactone and as needed Lasix (8) HLD (hyperlipidemia): Plan: Continue atorvastatin (9) ROHIT (obstructive sleep apnea): Plan: CPAP at bedtime (10) GERD (gastroesophageal reflux disease): Plan: Continue PPI (11) Gout: Plan: Continue allopurinol (12) Morbid obesity: Plan: BMI: 58 Lifestyle modifications recommended DVT Prophylaxis Anticoagulated on warfarin. Current INR supratherapeutic. Monitor INR Full code as per discussion with pt Follows with Dr Koch for routine care Pt was seen and care coordinated with Dr Wagoner. See addendum I spent a total of 78 minutes reviewing notes, outpatient records, labs, medication, coordinating, documenting and providing care for this patient excluding time spent in the performance of separately billed services. History of Present Illness Chief Complaint: weakness Primary Care Provider: Jamey Koch MD Patient is 62-year-old male with PMH chronic atrial fibrillation anticoagulated on warfarin, diet-controlled DM II, HTN, HLD, chronic heart failure with preserved EF, ROHIT, gout, GERD, morbid obesity presented to ER with complaint of weakness. History obtained from patient, patient's and inpatient and outpatient chart review. History of hospitalization at [facility] on 11/11/2022- 12/10/2022 for acute respiratory failure, acute on chronic heart failure with preserved EF. Rehab was recommended by PT/OT. Case management had reached out to facilities and no bariatric beds were available. Patient states he was starting to ambulate in hospital room and thought he would be able to go home. Patient and opted for discharged with home health services. At home patient not been ambulating. At baseline ambulates with use of cane or walker. He ambulated to toilet and was too weak and unable to get up off toilet. Had to call EMS for transfer to hospital today. Patient states generalized weakness, bilateral leg weakness. He reports chronic bilateral knee pain and typically receives injections from Ortho. Patient also on chronic tramadol. Reports bilateral knee and bilateral foot pain. Denies any fall at home. Was discharged on Lasix 20 mg to use as needed for lower extremity edema. Patient states had some lower extremity edema yesterday so took a dose and today it looks improved. Denies fever/chills, diaphoresis, N/V/D/C, [place], dizziness, syncope, vision changes, neck pain, CP, SOB, orthopnea, palpitations, cough, sore throat, rhinorrhea, abdominal pain, rashes, urinary symptoms. Allergies Allergy/AdvReac Type Severity Reaction Status Date / Time No Known Allergies Allergy Mild Verified 11/11/22 14:55 Home Medications Medication Instructions Recorded Confirmed Type albuterol sulfate 90 mcg/actuation 2 puff inhalation QID PRN 11/11/22 12/12/22 History aerosol inhaler Shortness Of Breath aspirin 81 mg capsule 81 mg PO QAM 11/11/22 12/12/22 History atorvastatin 40 mg tablet 40 mg PO HS 11/11/22 12/12/22 History omeprazole 40 mg capsule,delayed 40 mg PO DAILYBB 11/11/22 12/12/22 History release warfarin 7.5 mg tablet 3.75 mg PO 4XWK 11/11/22 12/12/22 History warfarin 7.5 mg tablet 7.5 mg PO 3XWK 11/11/22 12/12/22 History acetaminophen 500 mg tablet 1,000 mg PO Q8H PRN pain #60 tabs 12/09/22 12/12/22 Rx (Tylenol Extra Strength) allopurinol 100 mg tablet 100 mg PO DAILY #30 tabs 12/09/22 12/12/22 Rx diclofenac sodium 1 % topical gel 2 g EXT TID #100 grams 12/09/22 12/12/22 Rx (Voltaren Arthritis Pain) furosemide 20 mg tablet (Lasix) 20 mg PO DAILY PRN edema #30 tabs 12/09/2212/12 Rx metoprolol succinate 50 mg 50 mg PO BID #30 tabs 12/09/22 12/12/22 Rx tablet,extended release 24 hr spironolactone 25 mg tablet 12.5 mg PO QAM #30 tabs 12/09/22 12/12/22 Rx tramadol 200 mg tablet,extended 200 mg PO HS 12/12/22 12/12/22 History release 24 hr Past Med/Surg History Medical History Chronic atrial fibrillation Chronic heart failure with preserved ejection fraction (HFpEF) Chronic venous stasis DM2 (diabetes mellitus, type 2) GERD (gastroesophageal reflux disease) Gout HLD (hyperlipidemia) HTN (hypertension) Morbid obesity ROHIT (obstructive sleep apnea) Shortness of breath Surgical History H/O arthroscopic knee surgery Family History Other Heart disease Hypertension Social History Smoking Status: Never smoker Hx Alcohol Use: No Hx Substance Use: No Preferred Language: Jamaican Communication Ability: Effective Process Manager Required: No Beliefs That Will Affect Care: None Current Living Situation: Alone Other Information That Helps Us Care for You: No Feels Safe at Home: Yes Safety Concerns: Feels Safe At This Time Assistive Devices: BiPap, Cane and Walker Review of Systems Review of Systems: All systems reviewed & are unremarkable except as noted in HPI & below Physical Exam Physical Exam: General: no acute distress, +obese Head: normocephalic, atraumatic Eyes: conjunctiva non-injected, anicteric ENT: normal inspection external ears, nose, mucous membranes moist Neck: supple, trachea midline Lungs: clear, no respiratory distress, no wheezing/rhonchi/rales CV: distant heart sounds, irregularly irregular Abd: protuberant, normal BS, soft, non-tender Ext: no cyanosis, no calf tenderness, +venous stasis changes bilaterally, +large lower extremities without pitting edema Neuro: A&O x 3, no focal deficits noted, normal affect Skin: warm, dry Results & Data Results & Data Vital Signs (Past 12 Hours) Vital Signs Temp Pulse Pulse Resp BP BP Pulse Ox 12/12/22 11:51 90 20 132/99 96 12/12/22 09:49 111 H 12/12/22 09:33 36.9 C 72 18 109/77 95 O2 Del Method 12/12/22 11:51 Room Air 12/12/22 09:49 12/12/22 09:33 Room Air Laboratory Results Short CBC 12/12/22 Range/Units 09:33 WBC 8.92 (4.8-10.8) K/ul Hgb 14.5 (14.0-18.0) g/dl Hct 44.6 (42.0-52.0) % Plt Count 303 (130-400) K/uL BMP 12/12/22 09:33 Sodium 137 Potassium 3.8 Chloride 100 Carbon Dioxide 22 BUN 18 Creatinine 1.27 Glucose 149 H Calcium 8.6 Liver Function 12/12/22 Range/Units 09:33 Total Bilirubin 0.7 (0.2-1.0) mg/dl AST 33 (13-39) U/L ALT 22 (7-52) U/L Alkaline Phosphatase 142 H (34-104) U/L Albumin 3.1 L (3.4-5.0) gm/dl Supervising Physician Co-Signing Physician Notes Attending addendum: The patient was seen and examined in medical telemetry unit He is morbidly obese and was admitted with weakness to the extent that he could not get up from commode He felt his legs to be numb and powerless Denies any fever and or chills, any chest pain or palpitation and no shortness of breath On examination Lying in bed comfortably Morbidly obese and afebrile Hemodynamically stable Chest-clear to auscultate bilaterally with decreased breath sounds Heart-S1-S2, regular Abdomen-very distended, soft, nontender, bowel sound present Extremities-1+ edema of chronic bilaterally with skin changes 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
[2022-12-12] MEDS ORDERED: MAGNESIUM SULFATE / D5W 1 GM/100 ML BAG IV STA (12:33)
[2022-12-12] MEDS ORDERED: METOPROLOL SUCC 50MG EXT REL TAB PO STA (12:51)
[2022-12-12] MEDS ORDERED: traMADol HCL 50 MG TABLET PO STA (12:51)
[2022-12-12] MEDS ORDERED: POTASSIUM CHLORIDE CRTAB 20 MEQ TABCR PO STA (12:53)
--- NOTE | 2022-12-12 13:23 | Electrocardiogram Report ---
Test Reason : Blood Pressure : / mmHG Vent. Rate : 117 BPM Atrial Rate : 144 BPM P-R Int : 000 ms QRS Dur : 104 ms QT Int : 340 ms P-R-T Axes : 000 011 -19 degrees QTc Int : 474 ms Poor data quality, interpretation may be adversely affected Atrial fibrillation with rapid ventricular response Low voltage QRS Nonspecific ST abnormality Abnormal ECG When compared with ECG of 13-NOV-2022 05:22, ST no longer elevated in Inferior leads Confirmed by Marcelino Tenorio ([id number]) on 12/12/2022 1:23:12 PM Referred By: REFERRED SELF Confirmed By:Vimal Tenorio
[2022-12-12 14:12] LABS: Appearance Urine Turbid (Clear); Bacteria Urine Automated Negative (Negative); Blood Urine 3+ (Negative); Color Urine Dark Yellow; Epithelial Cell Urine Auto >30 /lpf (0-5); Glucose Urine UA 1+ (Negative); Ketones Urine Trace (Negative); Leukocyte Esterase Urine 1+ (Negative); Nitrite Urine Positive (Negative); Protein Urine 3+ (Negative); Specific Gravity Urine 1.029 (1.000-1.030); Urobilinogen Urine Negative (Negative)
[2022-12-12 14:13] LABS: Bilirubin Urine 1+ (Negative)
[2022-12-12 14:39] LABS: RBC Urine Automated >30 /hpf (0-4)
[2022-12-12 14:40] LABS: Granular Casts Urine >30 /lpf (0); Renal Epithelial Cells Urine 0-5 /lpf (0-5)
[2022-12-12] MEDS ORDERED: MAGNESIUM HYDROXIDE SUSP 30 ML UDC PO PRN (16:04)
[2022-12-12] MEDS ORDERED: POLYETHYLENE (MIRALAX) 17 GM PACK PO PRN (16:04)
[2022-12-12] MEDS ORDERED: ONDANSETRON INJ 2 MG/ML 2 ML VIAL IV PRN (16:04)
[2022-12-12] MEDS ORDERED: ACETAMINOPHEN 325 MG TAB PO PRN (16:04)
[2022-12-12] MEDS ORDERED: ALBUTEROL HFA 8 GM INHALER INH PRN (16:04)
[2022-12-12] MEDS: MAGNESIUM SULFATE / D5W 1 GM/100 ML BAG IV SCH ×2 (16:30→18:52)
[2022-12-12] MEDS: DICLOFENAC SOD 1% GEL 100 GM TUBE EXT SCH ×2 (17:10→20:28)
[2022-12-12] MEDS: SPIRONOLACTONE 12.5 MG TAB PO SCH (17:11)
[2022-12-12] MEDS: allopurinoL 100 MG TAB PO SCH (17:11)
[2022-12-12] MEDS: ASPIRIN 81 MG ECTAB PO SCH (17:11)
[2022-12-12] MEDS: ATORVASTATIN 40 MG TAB PO SCH (20:27)
[2022-12-12] MEDS: METOPROLOL SUCC 50MG EXT REL TAB PO SCH (20:27)
[2022-12-12] MEDS: TRAMADOL 200 MG PO SCH (23:43)
[2022-12-13] MEDS: PANTOprazole 40 MG TAB PO SCH (05:50)
[2022-12-13] MEDS: allopurinoL 100 MG TAB PO SCH (08:27)
[2022-12-13] MEDS: METOPROLOL SUCC 50MG EXT REL TAB PO SCH ×2 (08:27→22:15)
[2022-12-13] MEDS: ASPIRIN 81 MG ECTAB PO SCH (08:27)
[2022-12-13] MEDS: SPIRONOLACTONE 12.5 MG TAB PO SCH (08:27)
[2022-12-13] MEDS: DICLOFENAC SOD 1% GEL 100 GM TUBE EXT SCH ×3 (08:27→22:16)
[2022-12-13 08:33] LABS: Hemoglobin 14.1 g/dl (14.0-18.0); Mean Corpuscular Hemoglobin 30.1 pg (25.0-34.0); Mean Corpuscular Hgb Conc 32.8 g/dL (32.0-36.0); Mean Corpuscular Volume 91.9 fL (80.0-100.0); Mean Platelet Volume 10.6 fL (9.4-12.4); Platelet Count 269 K/uL (130-400); RDW Coefficient of Variation 13.4 % (11.5-14.5); RDW Standard Deviation 45.2 fL (36.4-46.3); Red Blood Count 4.68 M/uL (4.70-6.10); White Blood Count 7.69 K/ul (4.8-10.8)
[2022-12-13 08:52] LABS: BUN Creatinine Ratio 17.9 (10-20); Calcium 8.5 mg/dl (8.6-10.3); Creatinine Clr Calc Pharmacy 135.8 ml/min; Est GFR (African American) 100.4 ml/min; Est GFR (Non-African American) 86.7 ml/min; Magnesium 1.5 mg/dl (1.7-2.4)
[2022-12-13 08:56] LABS: INR 3.2 (0.9-1.1); Prothrombin Time 31.9 Seconds (9.0-12.0)
[2022-12-13] MEDS: MAGNESIUM SULFATE / D5W 1 GM/100 ML BAG IV SCH ×2 (10:11→11:15)
--- NOTE | 2022-12-13 14:32 | Hospitalist Progress Note ---
Date of Service December 13, 2022 Assessment & Plan (1) Generalized weakness: (2) Ambulatory dysfunction: Plan: Patient is 62-year-old male with PMH chronic atrial fibrillation anticoagulated on warfarin, diet-controlled DM II, HTN, HLD, chronic heart failure with pr eserved EF, ROHIT, gout, GERD, morbid obesity presented to ER with complaint of generalized weakness and ambulatory dysfunction. Recent hospitalization with d/c 2 days ago. Rehab was recommended by PT/OT during that admission however no bariatric bed available and patient wished to go home. Unable to ambulate at home. Denies falls Generalized weakness Ambulatory dysfunction Fall precautions PT/OT eval Rehab as able Abnormal urinalysis Likely contaminated sample Urine culture mixed probable skin asia (3) Hypomagnesemia: Plan: Replace and monitor Plan to discharge on chronic supplementation (4) Chronic atrial fibrillation: Plan: Continue metoprolol On warfarin for anticoagulation Supratherapeutic INR INR 3.2 today Adjust Coumadin dose as needed (5) DM2 (diabetes mellitus, type 2): Plan: Diet controlled A1c: 6.3 on 11/11/2022 Diabetic diet Monitor (6) Chronic heart failure with preserved ejection fraction (HFpEF): Plan: Appears euvolemic currently 11/12/2022 echo: Limited secondary to body habitus. Normal LV systolic function. Unable to evaluate valvular structures Continue spironolactone Has Lasix to use as needed. Monitor volume status closely (7) HTN (hypertension): Plan: Recent discharge benazepril was discontinued Monitor BP Continue metoprolol succinate, spironolactone and as needed Lasix (8) HLD (hyperlipidemia): Plan: Continue atorvastatin (9) ROHIT (obstructive sleep apnea): Plan: CPAP at bedtime (10) GERD (gastroesophageal reflux disease): Plan: Continue PPI (11) Gout: Plan: Continue allopurinol (12) Morbid obesity: Plan: BMI: 58 Lifestyle modifications recommended DVT Px warfarin CODE STATUS Full code Admission and Anticipated Discharge Date Admission Date: December 12, 2022 Subjective Patient is seen and examined at bedside States having multiple chronic symptoms Reports nausea, chronic feet pain, generalized weakness Denies any chest pain, dyspnea, dizziness, abdominal pain, dysuria Family at bedside Review of Systems Review of Systems: All systems reviewed & are unremarkable except as noted in Subjective Physical Exam Physical Exam: Physical Exam: Vitals signs as noted above General Appearance:Morbidly Obese, no apparent distress Head: normocephalic, Atraumatic Eyes: normal inspection, EOMI Neck: supple, Trachea midline Respiratory/Chest: Normal breath sounds, CTA, No accessory muscle use Cardiovascular: S1, S2, No murmur Abdomen/GI:Soft, Non tender, +Protuberant, Bowel sounds present Extremities/Musculoskeletal:normal inspection, 1+ pedal edema, chronic venous stasis changes Neurologic/Psych:AAOX3, grossly no focal neurological deficits Skin: normal color, warm Results & Data Results & Data Vital Signs (Past 12 Hours) Vital Signs Temp Pulse Pulse Resp BP Pulse Ox Pulse Ox 12/13/22 13:42 97 12/13/22 11:00 36.8 C 84 20 116/82 94 12/13/22 09:47 91 H 12/13/22 08:24 93 12/13/22 07:51 36.6 C 90 20 121/73 91 12/13/22 02:59 36.6 C 86 18 123/76 94 O2 Del Method 12/13/22 13:42 12/13/22 11:00 Room Air 12/13/22 09:47 12/13/22 08:24 Room Air 12/13/22 07:51 Room Air 12/13/22 02:59 Room Air Laboratory Results Short CBC 12/13/22 Range/Units 08:10 WBC 7.69 (4.8-10.8) K/ul Hgb 14.1 (14.0-18.0) g/dl Hct 43.0 (42.0-52.0) % Plt Count 269 (130-400) K/uL BMP 12/13/22 08:10 Sodium 137 Potassium 4.0 Chloride 101 Carbon Dioxide 27 BUN 17 Creatinine 0.95 D Glucose 128 H Calcium 8.5 L (5) DM2 (diabetes mellitus, type 2) Diabetes mellitus alf 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
[2022-12-13] MEDS ORDERED: WARFARIN SOD 1 MG TAB PO SCH (16:00)
[2022-12-13] MEDS: ATORVASTATIN 40 MG TAB PO SCH (22:15)
[2022-12-13] MEDS: TRAMADOL 200 MG PO SCH (23:06)
[2022-12-14] MEDS: PANTOprazole 40 MG TAB PO SCH (05:41)
[2022-12-14 07:43] LABS: Hematocrit (blood only) 40.1 % (42.0-52.0); Hemoglobin 12.8 g/dl (14.0-18.0); Mean Corpuscular Hemoglobin 29.5 pg (25.0-34.0); Mean Corpuscular Hgb Conc 31.9 g/dL (32.0-36.0); Mean Corpuscular Volume 92.4 fL (80.0-100.0); Mean Platelet Volume 10.7 fL (9.4-12.4); Platelet Count 210 K/uL (130-400); RDW Coefficient of Variation 13.2 % (11.5-14.5); RDW Standard Deviation 45.2 fL (36.4-46.3); Red Blood Count 4.34 M/uL (4.70-6.10); White Blood Count 7.23 K/ul (4.8-10.8)
[2022-12-14 08:01] LABS: BUN Creatinine Ratio 16.7 (10-20); Calcium 8.3 mg/dl (8.6-10.3); Creatinine Clr Calc Pharmacy 163.6 ml/min; Est GFR (African American) 110.3 ml/min; Est GFR (Non-African American) 95.2 ml/min; Magnesium 1.4 mg/dl (1.7-2.4)
[2022-12-14 08:05] LABS: INR 2.8 (0.9-1.1)
[2022-12-14] MEDS: DICLOFENAC SOD 1% GEL 100 GM TUBE EXT SCH ×3 (08:21→20:55)
[2022-12-14] MEDS: SPIRONOLACTONE 12.5 MG TAB PO SCH (08:21)
[2022-12-14] MEDS: METOPROLOL SUCC 50MG EXT REL TAB PO SCH ×2 (08:21→20:55)
[2022-12-14] MEDS: allopurinoL 100 MG TAB PO SCH (08:21)
[2022-12-14] MEDS: ASPIRIN 81 MG ECTAB PO SCH (08:21)
[2022-12-14] MEDS: MAGNESIUM OXIDE 400 MG TAB PO SCH (08:21)
[2022-12-14] MEDS: MAGNESIUM SULFATE / D5W 1 GM/100 ML BAG IV SCH ×2 (09:51→11:54)
[2022-12-14] MEDS ORDERED: WARFARIN SOD 3 MG TAB PO SCH (16:00)
--- NOTE | 2022-12-14 19:01 | Hospitalist Progress Note ---
Date of Service December 14, 2022 Assessment & Plan (1) Generalized weakness: (2) Ambulatory dysfunction: Plan: Patient is 62-year-old male with PMH chronic atrial fibrillation anticoagulated on warfarin, diet-controlled DM II, HTN, HLD, chronic heart failure with pr eserved EF, ROHIT, gout, GERD, morbid obesity presented to ER with complaint of generalized weakness and ambulatory dysfunction. Recent hospitalization with d/c 2 days ago. Rehab was recommended by PT/OT during that admission however no bariatric bed available and patient wished to go home. Unable to ambulate at home. Denies falls Generalized weakness Ambulatory dysfunction Fall precautions PT/OT eval Plan to discharge to rehab facility when accepted Abnormal urinalysis Likely contaminated sample Urine culture mixed probable skin asia (3) Hypomagnesemia: Plan: Replace and monitor Plan to discharge on chronic supplementation (4) Chronic atrial fibrillation: Plan: Continue metoprolol On warfarin for anticoagulation Supratherapeutic INR INR 2.8 today Adjust Coumadin dose as needed (5) DM2 (diabetes mellitus, type 2): Plan: Diet controlled A1c: 6.3 on 11/11/2022 Diabetic diet Monitor (6) Chronic heart failure with preserved ejection fraction (HFpEF): Plan: Appears euvolemic currently 11/12/2022 echo: Limited secondary to body habitus. Normal LV systolic function. Unable to evaluate valvular structures Continue spironolactone Has Lasix to use as needed. Monitor volume status closely (7) HTN (hypertension): Plan: Recent discharge benazepril was discontinued Monitor BP Continue metoprolol succinate, spironolactone and as needed Lasix (8) HLD (hyperlipidemia): Plan: Continue atorvastatin (9) ROHIT (obstructive sleep apnea): Plan: CPAP at bedtime (10) GERD (gastroesophageal reflux disease): Plan: Continue PPI (11) Gout: Plan: Continue allopurinol (12) Morbid obesity: Plan: BMI: 58 Lifestyle modifications recommended DVT Px warfarin CODE STATUS Full code Admission and Anticipated Discharge Date Admission Date: December 12, 2022 Subjective Patient is seen and examined at bedside Feet pain better today per patient No new complaints Denies any chest pain, dyspnea, dizziness, abdominal pain, dysuria Family at bedside Sitting in chair comfortably Review of Systems Review of Systems: All systems reviewed & are unremarkable except as noted in Subjective Physical Exam Physical Exam: Physical Exam: Vitals signs as noted above General Appearance:Morbidly Obese, no apparent distress Head: normocephalic, Atraumatic Eyes: normal inspection, EOMI Neck: supple, Trachea midline Respiratory/Chest: Normal breath sounds, CTA, No accessory muscle use Cardiovascular: S1, S2, No murmur Abdomen/GI:Soft, Non tender, +Protuberant, Bowel sounds present Extremities/Musculoskeletal:normal inspection, 1+ pedal edema, chronic venous stasis changes Neurologic/Psych:AAOX3, grossly no focal neurological deficits Skin: normal color, warm Results & Data Results & Data Vital Signs (Past 12 Hours) Vital Signs Temp Pulse Pulse Resp BP Pulse Ox Pulse Ox 12/14/22 16:00 94 12/14/22 15:06 36.6 C 85 20 147/99 H 94 12/14/22 11:37 37.1 C 86 20 137/83 94 12/14/22 08:49 12/14/22 08:46 79 O2 Del Method O2 Del Method 12/14/22 16:00 Room Air 12/14/22 15:06 Room Air 12/14/22 11:37 Room Air 12/14/22 08:49 Room Air 12/14/22 08:46 Laboratory Results Short CBC 12/14/22 Range/Units 07:11 WBC 7.23 (4.8-10.8) K/ul Hgb 12.8 L (14.0-18.0) g/dl Hct 40.1 L (42.0-52.0) % Plt Count 210 (130-400) K/uL BMP 12/14/22 07:11 Sodium 135 L Potassium 4.0 Chloride 101 Carbon Dioxide 29 BUN 14 Creatinine 0.84 Glucose 113 H Calcium 8.3 L (5) DM2 (diabetes mellitus, type 2) Diabetes mellitus [facility] insulin use: unspecified [facility] insulin use status
[2022-12-14] MEDS: TRAMADOL 200 MG PO SCH (20:54)
[2022-12-14] MEDS: ATORVASTATIN 40 MG TAB PO SCH (20:55)
[2022-12-15] MEDS: PANTOprazole 40 MG TAB PO SCH (05:52)
[2022-12-15] MEDS: ASPIRIN 81 MG ECTAB PO SCH (07:44)
[2022-12-15] MEDS: DICLOFENAC SOD 1% GEL 100 GM TUBE EXT SCH (07:45)
[2022-12-15] MEDS: allopurinoL 100 MG TAB PO SCH (07:45)
[2022-12-15] MEDS: METOPROLOL SUCC 50MG EXT REL TAB PO SCH (07:45)
[2022-12-15] MEDS: SPIRONOLACTONE 12.5 MG TAB PO SCH (07:45)
[2022-12-15] MEDS: MAGNESIUM OXIDE 400 MG TAB PO SCH (07:45)
[2022-12-15 10:08] LABS: BUN Creatinine Ratio 14.3 (10-20); Calcium 8.6 mg/dl (8.6-10.3); Creatinine Clr Calc Pharmacy 141.5 ml/min; Est GFR (African American) 96.7 ml/min; Est GFR (Non-African American) 83.5 ml/min; Magnesium 1.4 mg/dl (1.7-2.4); Potassium 4.5 mmol/L (3.5-5.1)
[2022-12-15 10:13] LABS: INR 2.5 (0.9-1.1); Prothrombin Time 25.6 Seconds (9.0-12.0)
[2022-12-15] MEDS ORDERED: MAGNESIUM SULFATE / D5W 1 GM/100 ML BAG IV ONE (10:45)
--- NOTE | 2022-12-15 10:59 | Hospitalist Progress Note ---
Date of Service December 15, 2022 Assessment & Plan (1) Generalized weakness: (2) Ambulatory dysfunction: Plan: Patient is 62-year-old male with PMH chronic atrial fibrillation anticoagulated on warfarin, diet-controlled DM II, HTN, HLD, chronic heart failure with p reserved EF, ROHIT, gout, GERD, morbid obesity presented to ER with complaint of generalized weakness and ambulatory dysfunction. Recent hospitalization with d/c 2 days ago. Rehab was recommended by PT/OT during that admission however no bariatric bed available and patient wished to go home. Unable to ambulate at home. Denies falls Generalized weakness Ambulatory dysfunction Fall precautions PT/OT eval Plan to discharge to rehab facility today Abnormal urinalysis Likely contaminated sample Urine culture mixed probable skin asia (3) Hypomagnesemia: Plan: Replace and monitor Plan to discharge on chronic supplementation (4) Chronic atrial fibrillation: Plan: Continue metoprolol On warfarin for anticoagulation Supratherapeutic INR INR 2.5 today Adjust Coumadin dose as needed (5) DM2 (diabetes mellitus, type 2): Plan: Diet controlled A1c: 6.3 on 11/11/2022 Diabetic diet Monitor (6) Chronic heart failure with preserved ejection fraction (HFpEF): Plan: Appears euvolemic currently 11/12/2022 echo: Limited secondary to body habitus. Normal LV systolic function. Unable to evaluate valvular structures Continue spironolactone Has Lasix to use as needed. Monitor volume status closely (7) HTN (hypertension): Plan: Recent discharge benazepril was discontinued Monitor BP Continue metoprolol succinate, spironolactone and as needed Lasix (8) HLD (hyperlipidemia): Plan: Continue atorvastatin (9) ROHIT (obstructive sleep apnea): Plan: CPAP at bedtime (10) GERD (gastroesophageal reflux disease): Plan: Continue PPI (11) Gout: Plan: Continue allopurinol (12) Morbid obesity: Plan: BMI: 58 Lifestyle modifications recommended DVT Px warfarin CODE STATUS Full code Disposition Acute Rehab Admission and Anticipated Discharge Date Admission Date: December 12, 2022 Subjective Patient is seen and examined at bedside Had transient nausea this morning but currently resolved Denies any Feet pain today Also denies any chest pain, dyspnea, dizziness, abdominal pain, dysuria Family at bedside Plan to discharge to rehab facility today Review of Systems Review of Systems: All systems reviewed & are unremarkable except as noted in Subjective Physical Exam Physical Exam: Physical Exam: Vitals signs as noted above General Appearance:Morbidly Obese, no apparent distress Head: normocephalic, Atraumatic Eyes: normal inspection, EOMI Neck: supple, Trachea midline Respiratory/Chest: Normal breath sounds, CTA, No accessory muscle use Cardiovascular: S1, S2, No murmur Abdomen/GI:Soft, Non tender, +Protuberant, Bowel sounds present Extremities/Musculoskeletal:normal inspection, 1+ pedal edema, chronic venous stasis changes Neurologic/Psych:AAOX3, grossly no focal neurological deficits Skin: normal color, warm Results & Data Results & Data Vital Signs (Past 12 Hours) Vital Signs Temp Pulse Resp BP Pulse Ox O2 Del Method 12/15/22 10:54 36.8 C 78 20 127/80 95 Room Air 12/15/22 07:34 36.6 C 84 111/73 93 Room Air 12/15/22 03:42 36.7 C 84 16 107/64 93 Room Air 12/14/22 23:09 36.7 C 91 H 18 100/66 94 Room Air Laboratory Results [facility] 12/15/22 09:27 Sodium 134 L Potassium 4.5 Chloride 98 Carbon Dioxide 29 BUN 14 Creatinine 0.98 Glucose 141 H Calcium 8.6 (5) DM2 (diabetes mellitus, type 2) 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
--- NOTE | 2022-12-15 11:10 | Discharge Summary ---
Date of Service December 15, 2022 Admission HPI Per Admitting Provider Patient is 62-year-old male with PMH chronic atrial fibrillation anticoagulated on warfarin, diet-controlled DM II, HTN, HLD, chronic heart failure with preserved EF, ROHIT, gout, GERD, morbid obesity presented to ER with complaint of weakness. History obtained from patient, patient's and inpatient and outpatient chart review. History of hospitalization at [facility] on 11/11/2022- 12/10/2022 for acute respiratory failure, acute on chronic heart failure with preserved EF. Rehab was recommended by PT/OT. Case management had reached out to facilities and no bariatric beds were available. Patient states he was starting to ambulate in hospital room and thought he would be able to go home. Patient and opted for discharged with home health services. At home patient not been ambulating. At baseline ambulates with use of cane or walker. He ambulated to toilet and was too weak and unable to get up off toilet. Had to call EMS for transfer to hospital today. Patient states generalized weakness, bilateral leg weakness. He reports chronic bilateral knee pain and typically receives injections from Ortho. Patient also on chronic tramadol. Reports bilateral knee and bilateral foot pain. Denies any fall at home. Was discharged on Lasix 20 mg to use as needed for lower extremity edema. Patient states had some lower extremity edema yesterday so took a dose and today it looks improved. Denies fever/chills, diaphoresis, N/V/D/C, [place], dizziness, syncope, vision changes, neck pain, CP, SOB, orthopnea, palpitations, cough, sore throat, rhinorrhea, abdominal pain, rashes, urinary symptoms. Admission Exam Per Admitting Provider General: no acute distress, +obese Head: normocephalic, atraumatic Eyes: conjunctiva non-injected, anicteric ENT: normal inspection external ears, nose, mucous membranes moist Neck: supple, trachea midline Lungs: clear, no respiratory distress, no wheezing/rhonchi/rales CV: distant heart sounds, irregularly irregular Abd: protuberant, normal BS, soft, non-tender Ext: no cyanosis, no calf tenderness, +venous stasis changes bilaterally, +large lower extremities without pitting edema Neuro: A&O x 3, no focal deficits noted, normal affect Skin: warm, dry Principal Diagnosis Generalized weakness Ambulatory dysfunction Hypomagnesemia Supratherapeutic INR Discharge Data Allergies Allergy/AdvReac Type Severity Reaction Status Date / Time No Known Allergies Allergy Mild Verified 11/11/22 14:55 Consultations 12/12/22 15:24 ED Decision to Admit Stat Procedures Performed Laboratory Results WBC 7.23 K/ul (4.8-10.8) 12/14/22 07:11 RBC 4.34 M/uL (4.70-6.10) L 12/14/22 07:11 Hgb 12.8 g/dl (14.0-18.0) L 12/14/22 07:11 Hct 40.1 % (42.0-52.0) L 12/14/22 07:11 MCV 92.4 fL (80.0-100.0) 12/14/22 07:11 MCH 29.5 pg (25.0-34.0) 12/14/22 07:11 MCHC 31.9 g/dL (32.0-36.0) L 12/14/22 07:11 RDW Std Deviation 45.2 fL (36.4-46.3) 12/14/22 07:11 RDW Coeff of Zoila 13.2 % (11.5-14.5) 12/14/22 07:11 Plt Count 210 K/uL (130-400) 12/14/22 07:11 MPV 10.7 fL (9.4-12.4) 12/14/22 07:11 Immature Gran % (Auto) 0.4 % 12/12/22 09:33 Neut % (Auto) 80.6 % 12/12/22 09:33 Lymph % (Auto) 9.9 % 12/12/22 09:33 Adams % (Auto) 7.6 % 12/12/22 09:33 Eos % (Auto) 1.1 % 12/12/22 09:33 Baso % (Auto) 0.4 % 12/12/22 09:33 Neut # (Auto) 7.18 K/uL (1.40-6.50) H 12/12/22 09:33 Lymph # (Auto) 0.88 K/uL (1.2-3.4) L 12/12/22 09:33 Adams # (Auto) 0.68 K/uL (0.11-0.59) H 12/12/22 09:33 Eos # (Auto) 0.10 K/uL (0-0.50) 12/12/22 09:33 Baso # (Auto) 0.04 K/uL (0-0.2) 12/12/22 09:33 Immature Gran # (Auto) 0.04 K/uL (0.01-0.20) 12/12/22 09:33 PT 25.6 Seconds (9.0-12.0) H 12/15/22 09:27 INR 2.5 (0.9-1.1) H 12/15/22 09:27 Sodium 134 mmol/L (136-145) L 12/15/22 09:27 Potassium 4.5 mmol/L (3.5-5.1) 12/15/22 09:27 Chloride 98 mmol/L (98-107) 12/15/22 09:27 Carbon Dioxide 29 mmol/L (21-32) 12/15/22 09:27 Anion Gap 7 (3-11) 12/15/22 09:27 BUN 14 mg/dl (6-23) 12/15/22 09:27 Creatinine 0.98 mg/dl (0.6-1.4) 12/15/22 09:27 Est Cr Clr Drug Dosing 141.5 ml/min 12/15/22 09:27 Est GFR ( Amer) 96.7 ml/min 12/15/22 09:27 Est GFR (Non-Af Amer) 83.5 ml/min 12/15/22 09:27 BUN/Creatinine Ratio 14.3 (10-20) 12/15/22 09:27 Glucose 141 mg/dl (70-99(Fasting)) H 12/15/22 09:27 POC Glucose 112 mg/dl (70-99) H 12/13/22 16:33 Calcium 8.6 mg/dl (8.6-10.3) 12/15/22 09:27 Magnesium 1.4 mg/dl (1.7-2.4) L 12/15/22 09:27 Total Bilirubin 0.7 mg/dl (0.2-1.0) 12/12/22 09:33 AST 33 U/L (13-39) 12/12/22 09:33 ALT 22 U/L (7-52) 12/12/22 09:33 Alkaline Phosphatase 142 U/L (34-104) H 12/12/22 09:33 Troponin I High Sens 7.3 pg/ml (0-20) 12/12/22 09:33 B-Natriuretic Peptide 111 pg/ml (0-100) H 12/12/22 09:33 Total Protein 7.4 gm/dl (6.0-8.3) 12/12/22 09:33 Albumin 3.1 gm/dl (3.4-5.0) L 12/12/22 09:33 Globulin 4.3 gm/dl (2.5-4.0) H 12/12/22 09:33 Albumin/Globulin Ratio 0.7 (0.9-2) L 12/12/22 09:33 TSH 2.607 uIu/ml (0.300-4.500) 12/12/22 09:33 Urine Color Dark Yellow 12/12/22 13:55 Urine Appearance Turbid (Clear) A 12/12/22 13:55 Urine pH 5.0 (4.5-7.5) 12/12/22 13:55 Ur Specific [place] 1.029 (1.000-1.030) 12/12/22 13:55 Urine Protein 3+ (Negative) H 12/12/22 13:55 Urine Glucose (UA) 1+ (Negative) H 12/12/22 13:55 Urine Ketones Trace (Negative) H 12/12/22 13:55 Urine Blood 3+ (Negative) H 12/12/22 13:55 Urine Nitrite Positive (Negative) A 12/12/22 13:55 Urine Bilirubin 1+ (Negative) H 12/12/22 13:55 Urine Urobilinogen Negative (Negative) 12/12/22 13:55 Ur Leukocyte Esterase 1+ (Negative) H 12/12/22 13:55 Urine WBC (Auto) 10-30 /hpf (0-5) H 12/12/22 13:55 Urine RBC (Auto) >30 /hpf (0-4) H 12/12/22 13:55 U Hyaline Cast (Auto) 10-30 /lpf (0-5) H 12/12/22 13:55 U Epithel Cells (Auto) >30 /lpf (0-5) H 12/12/22 13:55 Urine Bacteria (Auto) Negative (Negative) 12/12/22 13:55 Ur Renal Epithelial Cell 0-5 /lpf (0-5) 12/12/22 13:55 Granular Casts >30 /lpf (0) H 12/12/22 13:55 Urine Yeast Not Reportable 12/12/22 13:55 SARS-CoV-2, RNA, NAAT NEGATIVE (NEGATIVE) 12/12/22 10:08 Hospital Course (1) Generalized weakness: (2) Ambulatory dysfunction: Patient is 62-year-old male with PMH chronic atrial fibrillation anticoagulated on warfarin, diet-controlled DM II, HTN, HLD, chronic heart failure with preserved EF, ROHIT, gout, GERD, morbid obesity presented to ER with complaint of generalized weakness and ambulatory dysfunction. Recent hospitalization with d/c 2 days ago. Rehab was recommended by PT/OT during that admission however no bariatric bed available and patient wished to go home. Unable to ambulate at home. Denies falls Generalized weakness Ambulatory dysfunction Fall precautions PT/OT eval Plan to discharge to rehab facility today Abnormal urinalysis Likely contaminated sample Urine culture mixed probable skin asia (3) Hypomagnesemia: Replace and monitor Plan to discharge on chronic supplementation (4) Chronic atrial fibrillation: Continue metoprolol On warfarin for anticoagulation Supratherapeutic INR INR 2.5 today Adjust Coumadin dose as needed (5) DM2 (diabetes mellitus, type 2): Diet controlled A1c: 6.3 on 11/11/2022 Diabetic diet Monitor (6) Chronic heart failure with preserved ejection fraction (HFpEF): Appears euvolemic currently 11/12/2022 echo: Limited secondary to body habitus. Normal LV systolic function. Unable to evaluate valvular structures Continue spironolactone Has Lasix to use as needed. Monitor volume status closely (7) HTN (hypertension): Recent discharge benazepril was discontinued Monitor BP Continue metoprolol succinate, spironolactone and as needed Lasix (8) HLD (hyperlipidemia): Continue atorvastatin (9) ROHIT (obstructive sleep apnea): CPAP at bedtime (10) GERD (gastroesophageal reflux disease): Continue PPI (11) Gout: Continue allopurinol (12) Morbid obesity: BMI: 58 Lifestyle modifications recommended DVT Px warfarin CODE STATUS Full code Disposition Acute Rehab Total Time Total Time Spent Total Time Spent (In Minutes): 54 minutes Discharge Plan Discharge Items Patient Disposition: Transfer Inpatient Rehab Fac Reason For Visit: WEAKNESS Discharge Diagnosis: Generalized weakness Ambulatory dysfunction Hypomagnesemia Supratherapeutic INR Activity: Per Instructions section Exercise/Sports: Gradually increase as tolerated Non-emergency contact: Primary Care Provider Call non-emergency contact if: you have any medication questions, your symptoms worsen, your pain is concerning for you and you have a fever Follow-up/Referrals: Jamey Koch MD [Primary Care Provider] - Diet: Carb Consistent or DM2 and Heart Healthy Addtl Attending Provider Instructions: Follow-up with your primary care physician in 1 week upon discharge from your facility -- Monitor your PT/INR while at rehab facility. Adjust Coumadin dose as needed to keep your PT/INR between 2.0-3.0. --Take 4 mg Coumadin today. Your INR is 2.5 on 12/15/2022. Seek immediate medical attention if your symptoms reoccur or worsen Please take all medications as instructed on discharge list below. Please call if you have any questions or problems. You can reach a [facility] hospitalist on duty at [facility] 24 hours a day by calling [phone] Pending Studies at Discharge: No Stand-Alone Forms: My [facility] Skilled Items Patient informed of condition?: Yes DNR: No Discharge Level of Care: Acute rehab Communicable Disease: No Discharge Prognosis: Stable Lines: None Urinary Catheter: No Medications and DC Order Prescriptions: New magnesium oxide 400 mg (241.3 mg magnesium) Tablet 400 mg PO QAM Qty: 30 1RF Continued tramadol 200 mg tablet extended release 24 hr 200 mg PO HS atorvastatin 40 mg tablet 40 mg PO HS albuterol sulfate 90 mcg/actuation HFA aerosol inhaler 2 puff INHALATION QID PRN (Reason: Shortness Of Breath) aspirin 81 mg Capsule 81 mg PO QAM warfarin 7.5 mg tablet 7.5 mg PO 3XWK Rx Instructions: Mon,Wed,Fri warfarin 7.5 mg tablet 3.75 mg PO 4XWK Rx Instructions: TUES,TH,SAT,SUN omeprazole 40 mg capsule,delayed release(DR/EC) 40 mg PO DAILYBB metoprolol succinate 50 mg Tablet Extended Release 24 Hr 50 mg PO BID Qty: 30 0RF allopurinol 100 mg Tablet 100 mg PO DAILY Qty: 30 0RF acetaminophen [Tylenol Extra Strength] 500 mg Tablet 1,000 mg PO Q8H PRN (Reason: pain) Qty: 60 0RF spironolactone 25 mg Tablet 12.5 mg PO QAM Qty: 30 0RF diclofenac sodium [Voltaren Arthritis Pain] 1 % Gel 2 g EXT TID Qty: 100 0RF furosemide [Lasix] 20 mg tablet 20 mg PO DAILY PRN (Reason: edema) Qty: 30 0RF Discharge Orders: Discharge Order (Routine); Ordered 12/15/22 Ordered By: Yeyo Wang Admission Data Admit Date/Time: 12/12/22 12:31 Attending Provider: Yeyo Wang Admit Provider: Vee Wagoner Primary Care Provider: Jamey Koch Other Providers: Vee Wagoner ; [facility] ; [facility] ; [facility]
== END 2022-12-15 12:59 | DRG 641 ==
LOC: ED 09:19 → SUATTDRO 12:31 → 2W 12:31

== ENCOUNTER 2024-02-24 12:33 | Inpatient (IN) ==
[2024-02-24 14:03] LABS: Basophils # (auto) 0.08 K/uL (0.00-0.20); Basophils % (auto) 0.5 %; Eosinophils # (auto) 0.22 K/uL (0.00-0.50); Eosinophils % (auto) 1.3 %; Hematocrit (blood only) 43.2 % (42.0-52.0); Hemoglobin 13.5 g/dl (14.0-18.0); Immature Granulocytes # (auto) 0.28 K/uL (0.01-0.20); Immature Granulocytes % (auto) 1.6 %; Lymphocytes # (auto) 1.42 K/uL (1.20-3.40); Lymphocytes % (auto) 8.1 %; Mean Corpuscular Hgb Conc 31.3 g/dL (32.0-36.0); Mean Corpuscular Volume 89.4 fL (80.0-100.0); Mean Platelet Volume 11.6 fL (9.4-12.4); Monocytes # (auto) 1.73 K/uL (0.11-0.59); Monocytes % (auto) 9.9 %; Neutrophils # (auto) 13.71 K/uL (1.40-6.50); Neutrophils % (auto) 78.6 %; Platelet Count 497 K/uL (130-400); RDW Coefficient of Variation 12.9 % (11.5-14.5); RDW Standard Deviation 41.9 fL (36.4-46.3); Red Blood Count 4.83 M/uL (4.70-6.10); White Blood Count 17.44 K/ul (4.8-10.8)
--- NOTE | 2024-02-24 14:08 | XRay Report ---
XR chest 1V portable CLINICAL HISTORY: Sepsis TECHNIQUE: Single frontal radiograph of the chest was obtained. Comparison: Comparison is made to chest radiograph 11/12/2022 FINDINGS: Exam is limited by underpenetration. Cardiomegaly is noted. Lungs are underinflated but clear. No mendez dence of pleural effusion or pneumothorax. IMPRESSION: No acute chest disease. Cardiomegaly is noted. ACT 112: Negative or not required by law. Electronically signed by: James Nuñez M.D. 02/24/2024 2:06 PM
[2024-02-24] MEDS: SODIUM CHLORIDE 0.9% 500 ML IV SCH ×2 (14:14→19:19)
[2024-02-24 14:23] LABS: Albumin Level 2.8 gm/dl (3.4-5.0); BUN Creatinine Ratio 14.3 (10-20); Bilirubin Direct 0.2 mg/dl (0-0.2); Bilirubin,Total 0.5 mg/dl (0.2-1.0); Calcium 8.8 mg/dl (8.6-10.3); Creatinine Clr Calc Pharmacy 68.8 ml/min; Est GFR (African American) 45.1 ml/min; Est GFR (Non-African American) 38.9 ml/min; Magnesium 1.3 mg/dl (1.7-2.4); Potassium 4.5 mmol/L (3.5-5.1)
[2024-02-24 14:29] LABS: Troponin I High Sensitivity 8.9 pg/ml (0-20)
[2024-02-24] MEDS: SODIUM CHLORIDE 0.9% 500 ML IV ONE (15:29)
--- NOTE | 2024-02-24 15:37 | CT Scan Report ---
CT abd pelvis wo con CLINICAL HISTORY: ARF, elevated WBC, lower abd pain, nausea TECHNIQUE: Helical axial images of the abdomen and pelvis were obtained. Automated dose lowering tech niques and/or adjustment according to patient size were utilized for this exam. This exam was perfor med without intravenous contrast. CT DOSE: 3147.93 mGy.cm COMPARISON: None available at the time of this dictation. FINDINGS: Lower chest: No acute abnormality. Liver: Partially visualized, there are numerous hepatic hypodensities. These measure up to a 7 mm. Gallbladder and biliary tree: No calcified gallstones. Normal caliber wall. No intra- or extrahepatic biliary ductal dilation. Pancreas: There is prominence of the pancreatic tail with an apparent soft tissue mass measuring appr oximately 57 x 41 mm. Spleen: Unremarkable. Adrenals: Unremarkable. Kidneys and ureters: Nonobstructive stones are seen on the right. Left renal cyst is seen. Bladder: Limited evaluation due to underdistention. Reproductive organs: Unremarkable. Bowel: The appendix is normal. Diverticulosis is seen without diverticulitis. Lymph nodes Retroperitoneal: Lymphadenopathy in the genny hepatis measures 12 mm. Pelvic: Unremarkable. Mesenteric: Unremarkable. Peritoneum: Normal. Vessels: Atherosclerotic calcifications are seen. Abdominal wall: Right fat-containing inguinal hernia. Bones: Degenerative changes are seen in the spine and left greater than right hip joint. IMPRESSION: 1. Findings are concerning for malignancy with hepatic metastases, possibly involving the pancreatic tail mass as the primary lesion. Genny hepatis lymphadenopathy is also seen. 2. No acute abnormalities. 3. Diverticulosis without diverticulitis. 4. Nonobstructive nephrolithiasis. ACT 112: Negative or not required by law. Electronically signed by: James Nuñez M.D. 02/24/2024 3:35 PM
[2024-02-24] MEDS: SODIUM CHLORIDE 0.9% 1,000 ML IV ONE ×2 (15:39→16:29)
[2024-02-24] MEDS: PIPERACILLIN/TAZOBACTAM 4.5 GM/100 ML BAG IV ONE (15:39)
[2024-02-24 16:04] LABS: Appearance Urine Turbid (Clear); Bilirubin Urine 1+ (Negative); Blood Urine 3+ (Negative); Color Urine Dark Yellow; Glucose Urine UA Negative (Negative); Ketones Urine Trace (Negative); Leukocyte Esterase Urine Trace (Negative); Nitrite Urine Negative (Negative); Protein Urine 2+ (Negative); RBC Urine Automated >20 /hpf (0-2); Specific Gravity Urine 1.022 (1.000-1.030); Urobilinogen Urine Negative (Negative)
[2024-02-24 16:18] LABS: Hyaline Casts Urine Present /lpf (None Presnt)
[2024-02-24 16:19] LABS: Bacteria Urine Automated 2+ (None Seen); Granular Casts Urine Present /lpf (None Prsent)
[2024-02-24] MEDS: DAPTOmycin 700 MG in SYRINGE 0 ML IV SCH (16:22)
[2024-02-24] MEDS: MAGNESIUM SULFATE / D5W 1 GM/100 ML BAG IV ONE (16:29)
--- NOTE | 2024-02-24 16:31 | History & Physical Report ---
Date of Service February 24, 2024 Assessment & Plan (1) Severe sepsis: (2) Pancreatic mass: (3) Chronic atrial fibrillation: (4) FDC (current) use of 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s: (5) Chronic heart failure with preserved ejection fraction (HFpEF): (6) Hypomagnesemia: (7) Morbid obesity: (8) NONI (acute kidney injury): Plan This is a 64-year-old male who has significant past medical history of chronic atrial fibrillation anticoagulated on warfarin, T2DM, HTN, chronic HFpEF, ROHIT noncompliant with CPAP, morbid obesity who presents to ED at the referral of PCP due to general complaints and low blood pressure. Severe sepsis - patient meets criteria in setting of leukocytosis, tachycardia, hypotension, lactic acidosis initially and evidence of NONI Lactic acidosis unknown etiology ? UTI as UA abnormal but pt asymptomatic await blood and urine cultures continue empiric daptomycin and zosyn obtain CT Chest He will receive 2.5L of IVF in ED and 100ml in IV mag continue IVF NSS X 500ml ; he will also get additional 100ml x 3 with mag repletion pt with hx of CHF, pressures normal so will be cautious with fluid resuscitation currently pt appears adequately resuscitated repeat Lactic pending obtain lyme/anaplasma/babesia serologies NONI ct abd/pelvis w/o obstruction baseline cr 1.0 ? if in setting of ATN and hypotension vs pre renal from volume depletion monitor bmp Supratherapeutic INR INR 5.5 hold warfarin, no s/sx of bleeding, hgb stable, no indication for reversal daily INRS Abnormal CT abd/pelvis Pancreatic mass with concern for liver mets pt with reports of increased belching, gas and reduced frequency in bowel habits consult GI Hypomagnesemia mag 1.3, received 1g in mag sulfate in ED will give additional 3g, keep mag > 4.0 given afib Chronic Atrial fibrillation FDC anticoagulation continue metoprolol, warfarin daily PT/INR Chronic HFpEF currently receiving IVF due to sepsis monitor volume status closely, strict I and O, daily weights, low salt diet T2DM last a1C in 2021 was 6.2 he is currently off oral hypoglycemics and pt with substantial weight loss ROHIT noncompliant with cpap will order cpap at hs Morbid obesity pt with substantial weight loss, >150lbs intentional continue to encourage diet/lifestyle changes DVT ppx: Continue warfarin, monitor INR FULL CODE PCP: Zee Dispo: admit to PCU 2/2 Sepsis A total of 76 minutes was spent coordinating, documenting, and providing care for this patient excluding time spent in the performance of separately billed services. This included personally viewing all current laboratories and imaging studies, medication reconciliation, outpatient chart review, and discussion with specialists. Pt was seen and examined in collaboration with Dr. Eckert, please see addendum History of Present Illness Chief Complaint: Referred by PCP due to general complaints and low blood pressure. Primary Care Provider: Jamey Koch MD This is a 64-year-old male who has significant past medical history of chronic atrial fibrillation anticoagulated on warfarin, T2DM, HTN, chronic HFpEF, ROHIT noncompliant with CPAP, morbid obesity who presents to ED at the referral of PCP due to general complaints and low blood pressure. is at bedside who helps elicit history. Patient's outpatient records were reviewed. Of significance he was seen recently 3 different times in November, December and January for upper respiratory-like symptoms. In November he completed a course of azithromycin and prednisone, in December he completed a course of doxycycline, Singulair, prednisone and albuterol and most recently in January he completed a course of Augmentin and prednisone. This was all due to upper respiratory symptoms and cough that gradually improved, but did not fully resolved. After his last round of antibiotics his symptoms c ompletely resolved. His last echocardiogram was October 2022 which revealed a normal LV systolic function, grossly normal LV chamber size with significant limited study due to body habitus. Today he complains of increased gas and belching. He feels nauseated. This has been going on for at least a week and seems to be getting worse. He is having abdominal pain that is located in the Center. He has not had anything to eat today. He occasionally gets heart burn. Denies chest pain, sob, dysuria, increased urg with urination, hematuria, melena or hematochezia. He denies any known insect or tick bites. He denies f/c/s or rigors. He is not very active and stays indoors most time. He is very tired lately. He did have a colonoscopy about 1-2 years and was reported as normal. He denies every have upper endoscopy in paste. He denies any sick contacts. He has no recent travel. His denies any blood in the stool, but states his stools have been different the last 2 weeks. He has no been going very frequently. He used to be 585lbs. He is now in the 300s over the last 2 years. He went on a diet and cut out soda and tries to watch what he eats. He has been watching with diet. He mostly drinks water and ice tea. Over the last week he has not had a lot of eat/drink. He denies smoking or alcohol use. He denies any elicit drug use. Allergies Allergy/AdvReac Type Severity Reaction Status Date / Time No Known Allergies Allergy Mild Verified 02/24/24 16:50 Home Medications Medication Instructions Recorded Confirmed Type albuterol sulfate 90 mcg/actuation 2 puff inhalation QID PRN 11/11/22 02/24/24 History aerosol inhaler Shortness Of Breath and cough atorvastatin 40 mg tablet 40 mg PO QPM 11/11/22 02/24/24 History omeprazole 40 mg capsule,delayed 40 mg PO DAILYBB 11/11/22 02/24/24 History release furosemide 20 mg tablet (Lasix) 20 mg PO DAILY PRN edema #30 tabs 12/09/22 02/24/24 Rx spironolactone 25 mg tablet 12.5 mg (1/2 x 25 mg) PO QAM #30 12/09/22 02/24/24 Rx tabs tramadol 200 mg tablet,extended 200 mg PO QAM 12/12/22 02/24/24 History release 24 hr allopurinol 100 mg tablet 100 mg PO QAM 02/24/24 02/24/24 History aspirin 81 mg chewable tablet 81 mg PO DAILY 02/24/24 02/24/24 History (Children's Aspirin) diclofenac sodium 1 % topical gel 2 g EXT TID PRN Pain 02/24/24 02/24/24 History (Voltaren Arthritis Pain) metoprolol succinate 50 mg 50 mg PO AMPM 02/24/24 02/24/24 History tablet,extended release 24 hr warfarin 5 mg tablet 2.5 mg PO MOFR 02/24/24 02/24/24 History warfarin 5 mg tablet 5 mg PO SUTUWETHSA 02/24/24 02/24/24 History Past Med/Surg History Problem List (Updated 02/24/24 @ 18:20 by Background Rohit) NONI (acute kidney injury) Pancreatic mass Severe sepsis Acute hypotension (Acute) Liver masses (Acute) Acute UTI (urinary tract infection) (Acute) Atrial fibrillation (Acute) Sepsis (Acute) Gout ROHIT (obstructive sleep apnea) Chronic heart failure with preserved ejection fraction (HFpEF) Hypomagnesemia (Acute) Ambulatory dysfunction (Acute) Generalized weakness (Acute) Chronic atrial fibrillation (Acute) Bilateral chronic knee pain Acute on chronic diastolic heart failure with preserved ejection fraction Acute on chronic respiratory failure with hypoxia and hypercapnia Morbid obesity (Acute) DM2 (diabetes mellitus, type 2) (Acute) GERD (gastroesophageal reflux disease) HLD (hyperlipidemia) HTN (hypertension) Shortness of breath Breathlessness (Acute) FDC (current) use of 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s (Acute) Pulmonary edema (Acute) Fluid overload (Acute) Atrial fibrillation (Acute) Medical History Chronic venous stasis Bacterial arthritis of both knees Surgical History H/O arthroscopic knee surgery Family History Other Heart disease Hypertension Social History Smoking Status: Never smoker Hx Alcohol Use: No Hx Substance Use: No Preferred Language: Iraqi Communication Ability: Effective Investment Manager Required: No Beliefs That Will Affect Care: None Current Living Situation: Spouse and Family Feels Safe at Home: Yes Assistive Devices: Cane Review of Systems Review of Systems: All systems reviewed & are unremarkable except as noted in HPI & below Physical Exam Physical Exam: please refer to attending addendum for physical exam findings. Results & Data Results & Data Vital Signs (Past 12 Hours) Vital Signs Temp Pulse Pulse Resp BP BP Pulse Ox 02/24/24 16:03 104 H 16 112/61 94 02/24/24 15:42 112 H 14 93/68 L 94 02/24/24 14:16 36.9 C 94 H 20 120/82 98 02/24/24 13:00 100 H 02/24/24 12:43 36.5 C 105 H 20 99/76 L 95 O2 Del Method 02/24/24 16:03 Room Air 02/24/24 15:42 Room Air 07/01/24 14:16 Room Air 02/24/24 13:00 02/24/24 12:43 Room Air Laboratory Results I have independently reviewed and interpreted patient's admitting labs including CBC, CMP, PTT, PT/INR, mag, UA, lactic acid, BNP, and troponin. Diagnostic Findings Chest X-Ray 02/24/24 13:31 XR chest 1V portable CLINICAL HISTORY: Sepsis TECHNIQUE: Single frontal radiograph of the chest was obtained. Comparison: Comparison is made to chest radiograph 11/12/2022 FINDINGS: Exam is limited by underpenetration. Cardiomegaly is noted. Lungs are underinflated but clear. No evidence of pleural effusion or pneumothorax. IMPRESSION: No acute chest disease. Cardiomegaly is noted. ACT 112: Negative or not required by law. Electronically signed by: James Nuñez M.D. 02/24/2024 2:06 PM Abdomen/Pelvis CT 02/24/24 14:39 CT abd pelvis wo con CLINICAL HISTORY: ARF, elevated WBC, lower abd pain, nausea TECHNIQUE: Helical axial images of the abdomen and pelvis were obtained. Automated dose lowering techniques and/or adjustment according to patient size were utilized for this exam. This exam was performed without intravenous contrast. CT DOSE: 3147.93 mGy.cm COMPARISON: None available at the time of this dictation. FINDINGS: Lower chest: No acute abnormality. Liver: Partially visualized, there are numerous hepatic hypodensities. These measure up to a 7 mm. Gallbladder and biliary tree: No calcified gallstones. Normal caliber wall. No intra- or extrahepatic biliary ductal dilation. Pancreas: There is prominence of the pancreatic tail with an apparent soft tissue mass measuring approximately 57 x 41 mm. Spleen: Unremarkable. Adrenals: Unremarkable. Kidneys and ureters: Nonobstructive stones are seen on the right. Left renal cyst is seen. Bladder: Limited evaluation due to underdistention. Reproductive organs: Unremarkable. Bowel: The appendix is normal. Diverticulosis is seen without diverticulitis. Lymph nodes Retroperitoneal: Lymphadenopathy in the micah hepatis measures 12 mm. Pelvic: Unremarkable. Mesenteric: Unremarkable. Peritoneum: Normal. Vessels: Atherosclerotic calcifications are seen. Abdominal wall: Right fat-containing inguinal hernia. Bones: Degenerative changes are seen in the spine and left greater than right hip joint. IMPRESSION: 1. Findings are concerning for malignancy with hepatic metastases, possibly involving the pancreatic tail mass as the primary lesion. Micah hepatis lymphadenopathy is also seen. 2. No acute abnormalities. 3. Diverticulosis without diverticulitis. 4. Nonobstructive nephrolithiasis. ACT 112: Negative or not required by law. Electronically signed by: James Nuñez M.D. 02/24/2024 3:35 PM Medications Administered Medication List Discontinued Medications Sodium Chloride (Nss) 500 mls @ 999 mls/hr IV .Q31M CHIVO Stop: 02/24/24 14:15 Last Infusion: 02/24/24 15:28 Dose: Infused Documented By: [facility] Admin: 02/24/24 14:14 Dose: 999 mls/hr Documented By: KAMRAN Sodium Chloride (Nss) 1,000 mls @ 999 mls/hr IV .Q1H1M ONE Stop: 02/24/24 16:19 Last Admin: 02/24/24 15:39 Dose: 999 mls/hr Documented By: [facility] [place] Sodium Chloride (Nss) 500 mls @ 999 mls/hr IV .Q31M ONE Stop: 02/24/24 15:49 Last Admin: 02/24/24 15:29 Dose: Not Given Documented By: [facility] Piperacillin Sod/Tazobactam Sod (Zosyn) 4.5 gm in 100 mls @ 200 mls/hr IV NOW ONE Stop: 02/24/24 15:48 Last Admin: 02/24/24 15:39 Dose: 200 mls/hr Documented By: [facility] ECG Additional Comments: I have independently reviewed and interpreted patient's admitting EKG which revealed: 98 atrial fib, qtc 431 ms, no st or t wave change COVID-19 Results Results COVID-19 Adm Lab Results: RBC 4.83 M/uL (4.70-6.10) 02/24/24 WBC 17.44 K/ul (4.8-10.8) H 02/24/24 Hgb 13.5 g/dl (14.0-18.0) L 02/24/24 Hct 43.2 % (42.0-52.0) 02/24/24 Plt Count 497 K/uL (130-400) H 02/24/24 Neutrophils (%) (Auto) 78.6 % 02/24/24 Lymphocytes (%) (Auto) 8.1 % 02/24/24 Eosinophils # (Auto) 0.22 K/uL (0.00-0.50) 02/24/24 Immature Granulocyte % (Auto) 1.6 % 02/24/24 Neutrophils # (Auto) 13.71 K/uL (1.40-6.50) H 02/24/24 Lymphocytes # (Auto) 1.42 K/uL (1.20-3.40) 02/24/24 Eosinophils # (Auto) 0.22 K/uL (0.00-0.50) 02/24/24 Basophils # (Auto) 0.08 K/uL (0.00-0.20) 02/24/24 Immature Granulocyte # (Auto) 0.28 K/uL (0.01-0.20) H 02/23 Na 135 mmol/L (136-145) L 02/24/24 K 4.5 mmol/L (3.5-5.1) 02/24/24 Cl 99 mmol/L (98-107) 02/24/24 CO2 23 mmol/L (21-32) 02/24/24 Anion Gap 13 (3-11) H 02/24/24 BUN 26 mg/dl (6-23) H 02/24/24 Creatinine 1.82 mg/dl (0.6-1.4) H 02/24/24 BUN/Creatinine Ratio 14.3 (10-20) 02/24/24 Glucose Level 136 mg/dl (70-99(Fasting)) H 02/24/24 Ca 8.8 mg/dl (8.6-10.3) 02/24/24 Total Bilirubin 0.5 mg/dl (0.2-1.0) 02/24/24 Direct Bilirubin 0.2 mg/dl (0-0.2) 02/24/24 AST/SGOT 27 U/L (13-39) 02/24/24 ALT/SGPT 15 U/L (7-52) 02/24/24 Alkaline Phosphatase 285 U/L (34-104) H 02/24/24 Total Protein 8.0 gm/dl (6.0-8.3) 02/24/24 Albumin 2.8 gm/dl (3.4-5.0) L 02/24/24 Procalcitonin 2.17 ng/ml (0-0.5) H 02/24/24 INR 5.5 (0.9-1.1) H 02/24/[address] 02/24/24 Chest X-Ray 02/24/24 Code Status & VTE Plan Code Status FULL CODE Supervising Physician Co-Signing Physician Notes Patient was seen and examined independently at bedside. Chart reviewed. Case discussed with and agree with the documentation above. In summary, this is a 64 year old male, morbidly obese, who presented to the ED from PCP office for hypotension and multiple constitutional symptoms like nausea, poor appetite, gas, dizziness, weakness for 1 week. Had chest congestion symptoms recently requiring multiple courses of antibiotics and steroids with resolution of symptoms completely about 2 weeks ago and then started with gas/burping and not feeling well. VS currently stable. No fever, BP improved. Labs with elevated WBC 17, procal 2.17, lactate 2.2, Cr 1.82. CT chest with liver lesions concerning for hepatic mets with pancreatic tail mass as possible primary. Feels slightly better after fluid boluses in ED, received 2.5 L. Meets sepsis criteria with fever, tachycardia, elevated lactate and NONI, unknown source though. Given empiric zosyn/dapto in ED- will continue pending further work up. Continue IVF, recheck lactate. Will get CT chest, follow up on urine and blood clx results, tick borne pathology. Consult GI for pancreatic mass with hepatic mets. Continue PPI and maalox prn. Repeat Labs in am. Rest as per the note above. On exam- General: Morbidly obese male, sick looking, lying comfortably in bed, not in acute distress, on room air HEENT: EOMI, OBI, MMM Chest: Decreased breath sounds bilaterally, no wheezes or crackles CVS: Irregular rate and rhythm Abdomen: Soft, non tender, distended, normal bowel sounds Neuro: Awake, alert, oriented, conversing well, non focal Extremities: Chronic venous stasis changes in legs
--- NOTE | 2024-02-24 17:01 | Emergency Department Note ---
Impression & Plan Sepsis, Atrial fibrillation, Acute UTI (urinary tract infection), Liver masses, Acute hypotension ED Provider Note NAME: KALIA CALDERÓN AGE: 64 SEX: Male INFORMANT: Patient ED PROVIDER(S): Sha Bond MD CHIEF COMPLAINT: Hypotension PLAN: Disposition: Admitted Outpatient prescription management: none Referral: None MEDICAL DECISION MAKING: Patient presented because of hypotension from his primary office. He noted generalized illness. He does have history of A-fib and is anticoagulated. On arrival the patient was doing relatively well was doing relatively well although did have some borderline hypotension. He noted GI complaints but had a rather benign abdomen. No CVA tenderness. He was afebrile. Blood work was very concerning for sepsis in light of his low blood pressure. He was treated with fluids based upon ideal body weight. White count was elevated. The patient's urinalysis was concerning for infection. CT imaging of the abdomen pelvis was performed. Patient does not have any obstructing kidney stones, abscess, or obstruction in the bowel. There are multiple liver masses noted which the patient is unaware of. Patient reassessed. Discussed possibilities and need for further workup. Patient was treated with broad-spectrum antibiotics. [facility] Patient will be evaluated in the ED and admitted for further management. Care/management discussed with: circuit manager Level of care consideration(s): After review of the information above and other included data, I feel the patient requires escalation of care to admission Triage Nursing notes: reviewed and agree them. Vital Signs: reviewed and remarkable for borderline hypertension Additional History obtained from: none Chronic Medical/Social Conditions affecting care: A-fib, [place] Prior/ Outside/ External records reviewed: none Differential Diagnosis: Sepsis, UTI, pneumonia, metabolic, electrolyte abnormalities, cardiac sources, toxicologic, neurologic, as well as other pathologies. Diagnostics, independently interpreted by me: ECG: Twelve-lead ECG reveals A-fib at [address] ST abnormality. No T wave inversion Cardiac Monitoring: Cardiac monitoring ordered by me: The patient was placed on continuous cardiac monitoring and observed. It revealed atrial fibrillation at 104 bpm. Medical decision rules: none Imaging studies: Chest x-ray. Findings: A chest x-ray was performed and revealed no pneumothorax, effusion, infiltrate, pulmonary edema, free air under the diaphragm, or wide mediastinum. Impression: No acute disease. I refer you to the EMR for further details. HPI: 64 year old Male arrives for evaluation of low blood pressure and illness. Patient notes he has had an upset stomach with nausea and belching along with poor appetite this week. Patient also notes some constipation issues and some lower abdominal discomfort but denies any significant pain. He has had no pulmonary symptoms. He was in his primary care office and they were concerned as he was hypotensive. Patient was referred to the ER for further management. Patient denies any sick contacts. Patient is anticoagulated due to history of A-fib. He does note he has been losing weight and has had no significant issues with lower extremity edema. Pt denies LOC, headache, fevers, chills, diaphoresis, visual changes, neck pain, chest pain, breathing difficulties, back pain, melena, hematochezia, urinary symptoms, numbness, weakness, lymphadenopathy, rash, or other complaints. PAST MEDICAL HISTORY: See Below, A-fib PAST SURGICAL HISTORY: See Below, denies GI surgery SOCIAL HISTORY: See Below, HOME MEDICATIONS: See Below ALLERGIES: See Below VITALS: See Below PHYSICAL EXAMINATION: GENERAL: Awake, but tired-appearing, in no distress HENT: Normocephalic, atraumatic. Oropharynx unremarkable. EYES: Normal conjunctiva. Sclera non-icteric. NECK: Inspection normal. Non-tender. Supple. No nuchal rigidity. FROM. No masses. RESPIRATORY: Clear to auscultation. No wheezes. No rales. Normal respiratory effort. CARDIAC: Borderline tachycardic rate. Irregular rhythm. No murmurs. No rubs. Extremities warm and well perfused. Pulses equal. No JVD. GI: Soft, obese, non-distended. Minimal left lower quad tenderness to palpation. No rebound or guarding. No masses. RECTAL: Deferred. MUSCULOSKELETAL: Atraumatic. Chest examination reveals no tenderness. The back is symmetrical on inspection without obvious abnormality. There is no CVA tenderness to palpation. No joint edema. LOWER EXTREMITIES: Calves are equal size bilaterally and non-tender. 1+ edema. Chronic venous discoloration. NEURO: Normal sensorium. No sensory or motor deficits noted. SKIN: No rash or jaundice noted. PROCEDURES: none CRITICAL CARE: I have personally spent 35 minutes of critical care time in the direct management of this patient. This includes bedside care, interpretation of diagnostic studies, and testing, discussion with consultants, patient, and family members, and other required patient management activities. These minutes are in excess of all separately billable procedures. OBSERVATION NOTE: none Past Med/Surg History Problem List (Updated 02/24/24 @ 17:01 by Sha Bond MD) Acute hypotension (Acute) Liver masses (Acute) Acute UTI (urinary tract infection) (Acute) Atrial fibrillation (Acute) Sepsis (Acute) Gout ROHIT (obstructive sleep apnea) Chronic heart failure with preserved ejection fraction (HFpEF) Hypomagnesemia (Acute) Ambulatory dysfunction (Acute) Generalized weakness (Acute) Chronic atrial fibrillation (Acute) Bilateral chronic knee pain Acute on chronic diastolic heart failure with preserved ejection fraction Acute on chronic respiratory failure with hypoxia and hypercapnia Morbid obesity (Acute) DM2 (diabetes mellitus, type 2) (Acute) GERD (gastroesophageal reflux disease) HLD (hyperlipidemia) HTN (hypertension) Shortness of breath Breathlessness (Acute) 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 (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) Pulmonary edema (Acute) Fluid overload (Acute) Atrial fibrillation (Acute) Medical History Chronic venous stasis Bacterial arthritis of both knees Surgical History H/O arthroscopic knee surgery Family History Other Heart disease Hypertension Social History Smoking Status: Never smoker Hx Alcohol Use: No Hx Substance Use: No Preferred Language: Liberian Communication Ability: Effective Housing Liaison Required: No Beliefs That Will Affect Care: None Current Living Situation: Alone Feels Safe at Home: Yes Assistive Devices: Cane and Walker Allergies Allergies Allergy/AdvReac Type Severity Reaction Status Date / Time No Known Allergies Allergy Mild Verified 02/24/24 16:50 Home Meds Home Medications Medication Instructions Recorded Confirmed albuterol sulfate 90 mcg/actuation 2 puff inhalation QID PRN 11/11/22 02/24/24 aerosol inhaler Shortness Of Breath and cough atorvastatin 40 mg tablet 40 mg PO QPM 11/11/22 02/24/24 omeprazole 40 mg capsule,delayed 40 mg PO DAILYBB 11/11/22 02/24/24 release tramadol 200 mg tablet,extended 200 mg PO QAM 12/12/22 02/24/24 release 24 hr allopurinol 100 mg tablet 100 mg PO QAM 02/24/24 02/24/24 diclofenac sodium 1 % topical gel 2 g EXT TID PRN Pain 02/24/24 02/24/24 (Voltaren Arthritis Pain) metoprolol succinate 50 mg 50 mg PO AMPM 02/24/24 02/24/24 tablet,extended release 24 hr Previous Rx's Medication Instructions Recorded furosemide 20 mg tablet (Lasix) 20 mg PO DAILY PRN edema #30 tabs 12/09/22 spironolactone 25 mg tablet 12.5 mg (1/2 x 25 mg) PO QAM #30 12/09/22 tabs Results & Data (ED) Vital Signs Vital Signs - 24 hr 02/24/24 12:43 02/24/24 13:00 02/24/24 14:16 Temperature 36.5 C 36.9 C Temperature Source Oral Oral Pulse Rate 105 H 100 H Pulse Rate [Right Finger] 94 H Pulse Rate from SpO2 Sensor Pulse Rhythm [Right Finger] Regular Pulse Strength [Right Finger] Normal Respiratory Rate 20 20 Respiratory Effort / Characteristics Non-Labored Spontaneous Non-Labored Spontaneous Respiratory Depth Normal Normal Respiratory Pattern Regular Regular Blood Pressure 99/76 L Blood Pressure [Right Arm] 120/82 Blood Pressure Mean 83 Blood Pressure Mean [Right Arm] 94 Blood Pressure Position [Right Arm] Semi-fowlers Pulse Oximetry 95 98 Oxygen Delivery Method Room Air Room Air Sepsis Recent Fever Within 48 Hours No Sepsis New/Unexplained Change in Mental Status N/A Sepsis Action Taken by Nursing No Action Required 02/24/24 15:42 02/24/24 16:03 Temperature Temperature Source Pulse Rate 112 H 104 H Pulse Rate [Right Finger] Pulse Rate from SpO2 Sensor 98 H 95 H Pulse Rhythm [Right Finger] Pulse Strength [Right Finger] Respiratory Rate 14 16 Respiratory Effort / Characteristics Respiratory Depth Respiratory Pattern Blood Pressure 93/68 L 112/61 Blood Pressure [Right Arm] Blood Pressure Mean 76 78 Blood Pressure Mean [Right Arm] Blood Pressure Position [Right Arm] Pulse Oximetry 94 94 Oxygen Delivery Method Room Air Room Air Sepsis Recent Fever Within 48 Hours Sepsis New/Unexplained Change in Mental Status Sepsis Action Taken by Nursing Laboratory Data 02/24/24 12:51 02/24/24 12:51 Lab Results 02/24/24 02/24/24 02/24/24 Range/Units 12:51 14:57 15:25 WBC 17.44 H (4.8-10.8) K/ul RBC 4.83 (4.70-6.10) M/uL Hgb 13.5 L (14.0-18.0) g/dl Hct 43.2 (42.0-52.0) % MCV 89.4 (80.0-100.0) fL MCH 28.0 (25.0-34.0) pg MCHC 31.3 L (32.0-36.0) g/dL RDW Std Deviation 41.9 (36.4-46.3) fL RDW Coeff of Zoila 12.9 (11.5-14.5) % Plt Count 497 H (130-400) K/uL MPV 11.6 (9.4-12.4) fL Immature Gran % (Auto) 1.6 % Neut % (Auto) 78.6 % Lymph % (Auto) 8.1 % [place] % (Auto) 9.9 % Eos % (Auto) 1.3 % Baso % (Auto) 0.5 % Neut # (Auto) 13.71 H (1.40-6.50) K/uL Lymph # (Auto) 1.42 (1.20-3.40) K/uL [place] # (Auto) 1.73 H (0.11-0.59) K/uL Eos # (Auto) 0.22 (0.00-0.50) K/uL Baso # (Auto) 0.08 (0.00-0.20) K/uL Immature Gran # (Auto) 0.28 H (0.01-0.20) K/uL Sodium 135 L (136-145) mmol/L Potassium 4.5 (3.5-5.1) mmol/L Chloride 99 (98-107) mmol/L Carbon Dioxide 23 (21-32) mmol/L Anion Gap 13 H (3-11) BUN 26 H (6-23) mg/dl Creatinine 1.82 H (0.6-1.4) mg/dl Est Cr Clr Drug Dosing 68.8 ml/min Est GFR ( Amer) 45.1 ml/min Est GFR (Non-Af Amer) 38.9 ml/min BUN/Creatinine Ratio 14.3 (10-20) Glucose 136 H (70-99(Fasting)) mg/dl Lactate 2.2 H* (0.4-2.0) mmol/L Calcium 8.8 (8.6-10.3) mg/dl Magnesium 1.3 L (1.7-2.4) mg/dl Total Bilirubin 0.5 (0.2-1.0) mg/dl Direct Bilirubin 0.2 (0-0.2) mg/dl AST 27 (13-39) U/L ALT 15 (7-52) U/L Alkaline Phosphatase 285 H (34-104) U/L Troponin I High Sens 8.9 (0-20) pg/ml B-Natriuretic Peptide 144 H (0-100) pg/ml Total Protein 8.0 (6.0-8.3) gm/dl Albumin 2.8 L (3.4-5.0) gm/dl Procalcitonin 2.17 H (0-0.5) ng/ml Urine Color Dark Yellow Urine Appearance Turbid A (Clear) Urine pH 5.0 (4.5-7.5) Ur Specific [place] 1.022 (1.000-1.030) Urine Protein 2+ H (Negative) Urine Glucose (UA) Negative (Negative) Urine Ketones Trace H (Negative) Urine Blood 3+ H (Negative) Urine Nitrite Negative (Negative) Urine Bilirubin 1+ H (Negative) Urine Urobilinogen Negative (Negative) Ur Leukocyte Esterase Trace H (Negative) Urine WBC (Auto) 6-10 H (0-5) /hpf Urine RBC (Auto) >20 H (0-2) /hpf U Hyaline Cast (Auto) 6-10 H (0-2) /lpf U Epithel Cells (Auto) 6-10 H (0-2) /hpf Urine Bacteria (Auto) 2+ H (None Seen) Hyaline Casts Present A (None Presnt) /lpf Granular Casts Present A (None Prsent) /lpf Administered Medications Daptomycin 700 mg/ Syringe 14 mls @ 7 mls/min IV Q24H CHIVO; Protocol Stop: 02/26/24 15:29 Last Admin: 02/24/24 16:22 Dose: 7 mls/min Documented By: [facility] [place] Magnesium Sulfate/Dextrose (Magnesium Sulfate / D5w) 1 gm in 100 mls @ 50 mls/hr IV ONE ONE Stop: 02/24/24 17:41 Last Admin: 02/24/24 16:29 Dose: 50 mls/hr Documented By: [facility] [place] Discontinued Medications Sodium Chloride (Nss) 500 mls @ 999 mls/hr IV .Q31M CHIVO Stop: 02/24/24 14:15 Last Infusion: 02/24/24 15:28 Dose: Infused Documented By: [facility] [place] Admin: 02/24/24 14:14 Dose: 999 mls/hr Documented By: [facility] Sodium Chloride (Nss) 1,000 mls @ 999 mls/hr IV .Q1H1M ONE Stop: 02/24/24 16:19 Last Admin: 02/24/24 15:39 Dose: 999 mls/hr Documented By: [facility] [place] Sodium Chloride (Nss) 500 mls @ 999 mls/hr IV .Q31M ONE Stop: 02/24/24 15:49 Last Admin: 02/24/24 15:29 Dose: Not Given Documented By: [facility] [place] Piperacillin Sod/Tazobactam Sod (Zosyn) 4.5 gm in 100 mls @ 200 mls/hr IV NOW ONE Stop: 02/24/24 15:48 Last Infusion: 02/24/24 16:29 Dose: Infused Documented By: [facility] [place] Admin: 02/24/24 15:39 Dose: 200 mls/hr Documented By: [facility] [place] Sodium Chloride (Nss) 1,000 mls @ 999 mls/hr IV .Q1H1M ONE Stop: 02/24/24 16:19 Last Admin: 02/24/24 16:29 Dose: 999 mls/hr Documented By: [facility] [place] Imaging Data Radiologist's Impression: Chest X-Ray 02/24/24 13:31 XR chest 1V portable CLINICAL HISTORY: Sepsis TECHNIQUE: Single frontal radiograph of the chest was obtained. Comparison: Comparison is made to chest radiograph 11/12/2022 FINDINGS: Exam is limited by underpenetration. Cardiomegaly is noted. Lungs are underinflated but clear. No evidence of pleural effusion or pneumothorax. IMPRESSION: No acute chest disease. Cardiomegaly is noted. ACT 112: Negative or not required by law. Electronically signed by: James Nuñez M.D. 02/24/2024 2:06 PM Abdomen/Pelvis CT 02/24/24 14:39 CT abd pelvis wo con CLINICAL HISTORY: ARF, elevated WBC, lower abd pain, nausea TECHNIQUE: Helical axial images of the abdomen and pelvis were obtained. Automated dose lowering techniques and/or adjustment according to patient size were utilized for this exam. This exam was performed without intravenous contrast. CT DOSE: 3147.93 mGy.cm COMPARISON: None available at the time of this dictation. FINDINGS: Lower chest: No acute abnormality. Liver: Partially visualized, there are numerous hepatic hypodensities. These measure up to a 7 mm. Gallbladder and biliary tree: No calcified gallstones. Normal caliber wall. No intra- or extrahepatic biliary ductal dilation. Pancreas: There is prominence of the pancreatic tail with an apparent soft tissue mass measuring approximately 57 x 41 mm. Spleen: Unremarkable. Adrenals: Unremarkable. Kidneys and ureters: Nonobstructive stones are seen on the right. Left renal cyst is seen. Bladder: Limited evaluation due to underdistention. Reproductive organs: Unremarkable. Bowel: The appendix is normal. Diverticulosis is seen without diverticulitis. Lymph nodes Retroperitoneal: Lymphadenopathy in the micah hepatis measures 12 mm. Pelvic: Unremarkable. Mesenteric: Unremarkable. Peritoneum: Normal. Vessels: Atherosclerotic calcifications are seen. Abdominal wall: Right fat-containing inguinal hernia. Bones: Degenerative changes are seen in the spine and left greater than right hip joint. IMPRESSION: 1. Findings are concerning for malignancy with hepatic metastases, possibly involving the pancreatic tail mass as the primary lesion. Micah hepatis lymphadenopathy is also seen. 2. No acute abnormalities. 3. Diverticulosis without diverticulitis. 4. Nonobstructive nephrolithiasis. ACT 112: Negative or not required by law. Electronically signed by: James Nuñez M.D. 02/24/2024 3:35 PM Discharge Plan Visit Data Chief Complaint: Illness Stated Complaint: ILLNESS, DIZZINESS, ED Provider: Sha Bond Discharge Problem: Sepsis, Atrial fibrillation, Acute UTI (urinary tract infection), Liver masses, Acute hypotension Forms Stand Alone Forms: [facility] Labs Prescriptions Prescriptions: No Action tramadol 200 mg tablet extended release 24 hr 200 mg PO QAM atorvastatin 40 mg tablet 40 mg PO QPM albuterol sulfate 90 mcg/actuation HFA aerosol inhaler 2 puff INHALATION QID PRN (Reason: Shortness Of Breath and cough) omeprazole 40 mg capsule,delayed release(DR/EC) 40 mg PO DAILYBB spironolactone 25 mg Tablet 12.5 mg PO QAM Qty: 30 0RF furosemide [Lasix] 20 mg tablet 20 mg PO DAILY PRN (Reason: edema) Qty: 30 0RF allopurinol 100 mg tablet 100 mg PO QAM metoprolol succinate 50 mg tablet extended release 24 hr 50 mg PO AMPM diclofenac sodium [Voltaren Arthritis Pain] 1 % gel 2 g EXT TID PRN (Reason: Pain) Referrals Referrals: Jamey Koch MD [Primary Care Provider] -
[2024-02-24 17:42] LABS: INR 5.5 (0.9-1.1); Prothrombin Time 51.4 Seconds (9.0-12.0)
[2024-02-24] MEDS: ALUMINUM/MAGNESIUM SUSP 30 ML UDC PO STA (18:36)
[2024-02-24] MEDS ORDERED: ALBUTEROL HFA 8 GM INHALER INH PRN (18:37)
[2024-02-24] MEDS ORDERED: CARBOHYDRATES FOR HYPOGLYCEMIA PO PRN (18:37)
[2024-02-24] MEDS ORDERED: POLYETHYLENE (MIRALAX) 17 GM PACK PO PRN (18:37)
[2024-02-24] MEDS ORDERED: GLUCAGON FOR INJ 1 MG VIAL SQ PRN (18:37)
[2024-02-24] MEDS ORDERED: DEXTROSE 50% 50 ML SYRINGE IV PRN (18:37)
[2024-02-24] MEDS ORDERED: GLUCOSE 10 TAB/TUBE PO PRN (18:37)
[2024-02-24] MEDS ORDERED: GLUCOSE 40% GEL 15 GM TUBE PO PRN (18:37)
[2024-02-24] MEDS ORDERED: ACETAMINOPHEN 325 MG TAB PO PRN (18:37)
--- NOTE | 2024-02-24 18:37 | CT Scan Report ---
CT chest diagnostic wo con CLINICAL HISTORY: sepsis TECHNIQUE: Multidetector row helical CT of the chest was performed. Coronal and sagittal reformations were obtained. Automated dose lowering techniques and/or adjustment according to patient size were u tilized for this exam. CT DOSE: 1240.74 mGy.cm Comparison: Comparison is made to chest radiographs 02/24/2024 FINDINGS: Lungs and pleura: Scattered calcified granulomata are seen. Heart and pericardium: Pulmonary trunk measures 33 mm. Vessels: Unremarkable. Mediastinum and seema: Unremarkable. Chest wall and lower neck: Unremarkable. Abdomen: Prominent right prediaphragmatic lymph nodes measure up to 9 mm. For findings below the diap hragm, please see CT abdomen pelvis performed same day. Bones: Degenerative changes in the thoracic spine. IMPRESSION: 1. No evidence of pneumonia or other acute abnormality. 2. Subcentimeter prediaphragmatic lymph nodes are seen. Please see CT abdomen pelvis for findings of liver masses and pancreatic mass. ACT 112: Positive. There are findings on this exam that require communication between the performing entity and the patient following Patient Test Result Information Act ([place] Act 112) guidelines. Electronically signed by: James Nuñez M.D. 02/24/2024 6:35 PM
[2024-02-24] MEDS: MAGNESIUM SULFATE / D5W 1 GM/100 ML BAG IV SCH (19:24)
[2024-02-24] MEDS: PIPERACILLIN/TAZOBACTAM 4.5 GM in DEXTROSE 5% MINI-B 100 ML IV SCH (20:01)
[2024-02-24] MEDS: METOPROLOL SUCC 50MG EXT REL TAB PO SCH (20:02)
[2024-02-24] MEDS: INSULIN ASPART PER UNIT CHARGE SC SCH (20:32)
[2024-02-24] MEDS: TRAMADOL SCH (22:22)
[2024-02-24] MEDS: TRAMADOL 200 MG PO SCH (22:22)
--- OUTSIDE RECORDS SUMMARY | 2024-02-24 22:42 | External Medical Summary | Summary of Care ---
Author Name Unknown Organization [facility] Address [address] [place] [address] Phone [phone] Care Team Providers Care Bottle Booth Attendant Name Role Phone Jessica Regan MD Primary Care Provider +1- [phone] Reason for Visit * Reason Comments eRx-Medication Refill Encounter Details Date Type Department Care Team (Late st Contact Info) Description 02/19/2024 Refill [facility] [address] [place] [address] Jessica Regan MD [address] [place] [address] Acute on chronic heart failure with preserved ejection fraction (HCC) Allergies No known active allergiesdocumented as of this encounter (statuses as of 02/20/2024) Medications Medication Sig Dispensed Refills Start Date End Date Status ASPIRIN 81 MG PO CHEW One pill by mouth once a day with food 100 Tab 5 08/03/20 10 Active Warfarin Sodium 7.5 MG Oral Tablet (Coumadin)Indicati ons: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,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 Apply to joints as neede. Active Furosemide 20 MG Oral Tablet (Lasix) Take 1 Tablet by mouth daily as needed. For edema Active Ondansetron 4 MG Oral Tablet Disintegrating (Zofran)Indication s:Nausea and vomiting, unspecified vomiting type Place 1 Tablet on tongue every 8 hours as needed for Nausea. dissolve on tongue. 30 Tablet 1 01/09/20 23 Active HYDROcodone-Acetam inophen 5-325 MG Oral TabletIndications: Primary osteoarthritis of both knees Take 0.5-1 Tablets by mouth every 8 hours as needed for Pain, Mild. 30 Tablet 02/06/20 23 Active Metoprolol Succinate 50 MG Oral Capsule ER 24 Hour Sprinkle Take 50 mg by mouth in the morning and 50 mg in the evening. 180 Capsule 11/28/19 24 Active Atorvastatin Calcium 40 MG Oral Tablet (Lipitor)Indicatio ns:Dyslipidemia, goal LDL below 100 TAKE 1 TABLET BY MOUTH ONCE DAILY IN THE EVENING 90 Tablet 3 12/12/19 24 Active Albuterol Sulfate HFA 108 (90 Base) MCG/ACT Inhalation Aerosol SolutionIndication s:Cough,PND (post-nasal drip) INHALE 2 PUFFS BY MOUTH 4 TIMES DAILY NEEDED FOR SHORTNESS OF BREATH AND COUGH 54 g 1 12/23/19 24 Active Montelukast Sodium 10 MG Oral Tablet (Singulair) Take 1 Tablet by mouth in the morning. 30 Tablet 12/31/19 24 Active Warfarin Sodium 5 MG Oral Tablet (Coumadin) Take 2 tablets by mouth on Saturday and 1 tablet by mouth all other days as directed by anticoagulation clinic. 35 Tablet 2 01/08/20 24 Active Allopurinol 100 MG Oral Tablet (Zyloprim) TAKE 1 TABLET BY MOUTH IN THE MORNING 30 Tablet 1 01/13/20 24 Active Omeprazole 40 MG Oral Capsule Delayed Release (PriLOSEC)Indicati ons:Type 2 diabetes mellitus with hemoglobin A1c goal of less than 7.0% ([facility]) TAKE 1 CAPSULE BY MOUTH ONCE DAILY ONE HOUR BEFORE BREAKFAST 90 Capsule 3 01/21/20 24 Active Benzonatate 100 MG Oral Capsule (Tessalon Perles)Indications :Bronchitis Take 1 Capsule by mouth 3 times a day as needed for Cough. Do not cut, crush, or chew. 90 Capsule 1 01/27/20 24 Active predniSONE 10 MG Oral Tablet (Deltasone)Indicat ions:Bronchitis Take 5 tabs for 2 days, 4 tabs for 2 days, 3 tabs for 2 days, 2 tabs for 2 days 1 tab for 2 days 30 Tablet 01/27/20 24 Active traMADol HCl ER 200 MG Oral Tablet Extended Release 24 Hour (Ultram ER)Indications:Con trolled substance agreement signed Take 1 Tablet by mouth in the morning. 30 Tablet 02/04/20 24 Active Spironolactone 25 MG Oral Tablet (Aldactone)Indicat ions:Acute on chronic heart failure with preserved ejection fraction (HCC) Take 0.5 Tablets by mouth in the morning. 45 Tablet 1 02/20/20 24 Active Spironolactone 25 MG Oral Tablet (Aldactone)Indicat ions:Acute on chronic heart failure with preserved ejection fraction (HCC) Take 0.5 Tablets by mouth in the morning. 45 Tablet 3 02/20/20 23 024 Discontinued documented as of this encounter (statuses as of 02/20/2024) Active Problems Problem Noted Date Diagnosed Date Chronic heart failure with preserved ejection fr action 01/28/2023 Body mass index (BMI) of 50.0 to 59.9 in adult 0 10/31/2020 Overview: Per Obesity protocol - Body mass index (BMI) of 60.0 to 69.9 in adult 0 10/12/2020 Type 2 diabetes mellitus wit h hemoglobin A1c goal of less than 7.0% 10/12/2020 HTN, goal below 140/90 10/31/2015 Overview: Per HTN Protocol #27. Controlled substance agreement signed 09/12/2015 ROHIT (obstructive sleep apnea) 12/04/2012 Overview: 12/2012 -- CPAP 10 cwp with 2 LPM 11/21/12 Split PSG -- AHI 30.8, CPAP 8 cwp DME: [employer], [place] Atrial fibrillation 11/03/2012 Stasis dermatitis 03/03/2012 Dyslipidemia, goal LDL below 70 01/10/2012 documented as of this encounter (statuses as of 02/20/2024) Resolved Problems Problem Noted Date Diagnosed Date Resolved Date Body mass index (BMI) of 60. 0 to 69.9 in adult 05/27/2017 11/03/2020 Overview: Per Obesity protocol #1 Vasculitis of skin 08/31/2013 7 Hypoxemia 02/05/2013 02/13/2017 Cellulitis of leg 05/20/2012 02/13/2017 Open wound of knee, leg, and ankle 05/20/2012 02/13/2017 HTN, GOAL BELOW 140/80 04/14/201211/30 Overview: Per HTN Protocol #27. Edema 03/03/2012 02/13/2017 Chronic rhinitis 03/03/2012 02/13/2017 Obesity, morbid (more than 1 00 lbs over ideal weight or BMI > 40) 03/03/2012 02/13/2017 HTN, goal below 130/80 10/24/201004/17 Overview: Per HTN Protocol #27. Type 2 diabetes mellitus wit h hemoglobin A1c goal of less than 7.0% 06/22/2010 08/14/2019 Overview: ICD-10 update of inactive term Dyslipidemia, goal to be determined 08/11/2009 01/10/2012 Overview: Per Lipid Taxonomy. ADVANCE DIRECTIVE INFORMATION 12/23/2006 08/14/2019 Overview: Booklet given to pt. Sprain of ankle 07/24/2006 01/10/2012 Edema 07/24/2006 01/10/2012 HTN, goal below 140/90 07/24/200610/24 Morbid obesity, BMI not known 07/24/2006 02/13/2017 DJD, RIGHT KNEE 07/24/2006 02/13/2017 ADVANCE DIRECTIVE INFORMATION 10/01/2005 01/10/2012 Overview: No, Advance Directive brochure given to patient. Nausea with vomiting 09/20/2004 012 Mixed dyslipidemia 06/04/2002 9 Overview: Per Lipid Taxonomy. Pain in limb 07/26/2000 01/10/2012 HYPERTENSION NOS 10/09/1999 07/01/2009 Overview: Per HTN Taxonomy documented as of this encounter (statuses as of 02/20/2024) Immunizations Name Administration Dates Next Due Hepatitis B, 20+ yrs 03/18/2014,10/13/2013,09/14 Pneumococcal Polysaccharide PPV23 (Pneumovax) 06/13/2012 Seasonal Influenza, PF, 6 M & above, IM , (FluLaval or Fluzone) 05/28/2023,10/16/2021,08/14/2019,01/2018,10/31/2017 Seasonal Influenza, Quadriva lent, No Preserve, IM 06/26/2016,08/10/2015 06/26/2017 Seasonal Influenza, Split, I IV3, With Preserve, Inj 07/30/2014,08/03/2013,06/13/2012 07/30/2015 TDAP (age 10 and older)(Boostrix) 06/18/2012 TDAP, Age 7 and older, IM (Adacel) 10/31/2016 documented as of this encounter Social History Tobacco Use Types Packs/Day Years Used Date Smoking Tobacco: Never Smokeless Tobacco: Never Alcohol Use Standard Drinks/Week Comments Not Currently 0 (1 standard drink = 0.6 oz pur e alcohol) PHQ-2 Answer Date Recorded PHQ-2 Score -1 07/03/2018 Hunger Vital Sign Answer Date Recorded Within the past 12 months, y ou worried that your food would run out before you got the money to buy more. Never true 12/12/19 23 Within the past 12 months, t he food you bought just didn't last and you didn't have money to get more. Never true 12/11/2022 Utilities Answer Date Recorded Do you have trouble paying y our heating, water, or electric bill? (Adult - for ages 18 years and over) Not on file 02/11/2024 Is your family able to pay t he heat, water, or electric bill? (Household - for ages 0-17 years) Not on file 02/11/2024 Does your family have access to good internet? (Household - for ages 0-17 years) Not on file 02/11/2024 Social Connections Answer Date Recorded How often do you feel lonely or isolated from those around you? (Adult - for ages 18 years and over) Not on file 02/11/2024 Sex and Gender Information Value Date Recorded Sex Assigned at Not on file Gender Identity Not on file Sexual Orientation Not on file Job Start Date Occupation Industry Not on file Not on file Not on file documented as of this encounter Miscellaneous Notes * Telephone Encounter - Jacque Jimenez [facility] - 02/20/2024 6:14 AM EDTSigned Prescriptions: Disp Refills Spironolactone 25 MG Oral Tablet ([place]*45 Tab*1 Sig: Take 0.5 Tablets by mouth in the morning.Authorizing Provider: JESSICA RGEAN User: JACQUE JIMENEZ documented in this encounter Plan of Treatment Upcoming Encounters Date Type Department Care Team (Late st Contact Info) Description 02/21/2024 6:30 AM EDT [facility] Clinical Pharmacy Services, [address] [place] [address] [place] [address] [address] [facility] [place] [address] 03/24/2024 3:40 PM EDT Telemedicine [facility] [address] [place] [facility] [id number] Jessica Regan MD [address], [place] [id number] Health Maintenance Due Date Last Done Comments HIV Screening 1977 Hepatitis C Screening 02/23/1980 Colonoscopy 2007 Fecal Occult Blood Test 2007 Sigmoidoscopy 2007 Zoster Vaccines (1 of 2) 02/23/2012 Pneumococcal Vaccine: Pediatrics (0 to 5 Years) and At-Risk Patients (6 to 64 Years) (2 of 2 - PCV) 06/13/2013 06/13/2012 Diabetic Foot Exam 08/10/2016 08/10/2015, 1 09/12/2012, 10/03/2012, Additional history exists Albumin/Creatinine Ratio 12/18/2018 018, 08/10/2015, 07/30/2014, Additional history exists Depression Screening 03/03/2019 03/03/2018 Diabetic Eye Exam 08/10/2022 08/10/2021, , 08/09/2012 HbA1c 09/06/2022 03/06/2022, 10/24, 12/18/2017, Additional history exists COVID-19 Vaccine ( season) 2023 GFR 05/28/2024 05/28/2023, 11/26, 12/22/2022, Additional history exists Cologuard 01/02/2025 01/02/2022, 05/0 10/2021, 12/26/2021 Colorectal Cancer Screening 01/02/2025 DTaP,Tdap,and Td Vaccines (3 - Td or Tdap) 10/31/2026 10/31/2016, 06/18/2012 Lipid Panel 05/28/2028 05/28/2023, 02/23, 09/23/2020, Additional history exists Hepatitis B Completed 03/18/2014, 09/26, 09/14/2013 Influenza Vaccine (FLU shot) Completed 10/2022, 10/16/2021, 08/14/2019, Additional history exists GARDASIL-HPV IMMUNIZATION SERIES Aged Out No longer eligible based on patient's age to complete this topic MENINGOCOCCAL (MENACTRA/MENVEO) Aged Out No longer eligible based on patient's age to complete this topic documented as of this encounter Medical Devices Not on filedocumented as of this encounter Visit Diagnoses Diagnosis Acute on chronic heart failure with preserved ejection fraction (HCC) documented in this encounter Care Teams Bottle Booth Attendant Relationship Specialty Start Date End Date Jessica Regan MD [address], [place] [id number] PCP - General 03/06/06 documented as of this encounter
--- OUTSIDE RECORDS SUMMARY | 2024-02-24 22:42 | External Medical Summary | Summary of Care ---
Author Name Unknown Organization [facility] Address [address] [place] [address] Phone [phone] Care Team Providers Care Body Bumper Name Role Phone Jamey Koch MD Primary Care Provider +1- [phone] Reason for Visit * Reason Comments Dosage Adjustment Via Phone (anticoag in) Encounter Details Date Type Department Care Team (Latest Contact Info) Description 02/12/2024 6:30 AM EDT 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 Centralized Clinical Pharmacy Services, [place] [address] [place] [address] [place] [phone] 60 [facility] [place] [address] Longstanding persistent atrial fibrillation (HCC)* Allergies No known active allergiesdocumented as of this encounter (statuses as of 02/12/2024) Medications Medication Sig Dispensed Refills Start Date End Date Status ASPIRIN 81 MG PO CHEW One pill by mouth once a day with food 100 Tab 5 0 Active Warfarin Sodium 7.5 MG Oral Tablet (Coumadin)Indicatio ns: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,[facility] current use of 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 therapy TAKE ONE-HALF TO ONE TABLET BY MOUTH DAILY DIRECTED BY ANTICOAG CLINIC 135 Tablet 3 2 Active Diclofenac Sodium 1 % External Gel (Voltaren) Apply 2 g topically to affected area in the morning and 2 g at noon and 2 g in the evening. Apply to joints as neede. Active Furosemide 20 MG Oral Tablet (Lasix) Take 1 Tablet by mouth daily as needed. For edema Active Ondansetron 4 MG Oral Tablet Disintegrating (Zofran)Indications :Nausea and vomiting, unspecified vomiting type Place 1 Tablet on tongue every 8 hours as needed for Nausea. dissolve on tongue. 30 Tablet 1 3 Active HYDROcodone-Acetami nophen 5-325 MG Oral TabletIndications:P rimary osteoarthritis of both knees Take 0.5-1 Tablets by mouth every 8 hours as needed for Pain, Mild. 30 Tablet 3 Active Spironolactone 25 MG Oral Tablet (Aldactone)Indicati ons:Acute on chronic heart failure with preserved ejection fraction (HCC) Take 0.5 Tablets by mouth in the morning. 45 Tablet 3 3 Active Metoprolol Succinate 50 MG Oral Capsule ER 24 Hour Sprinkle Take 50 mg by mouth in the morning and 50 mg in the evening. 180 Capsule 4 Active Atorvastatin Calcium 40 MG Oral Tablet (Lipitor)Indication s:Dyslipidemia, goal LDL below 100 TAKE 1 TABLET BY MOUTH ONCE DAILY IN THE EVENING 90 Tablet 3 4 Active Albuterol Sulfate HFA 108 (90 Base) MCG/ACT Inhalation Aerosol SolutionIndications :Cough,PND (post-nasal drip) INHALE 2 PUFFS BY MOUTH 4 TIMES DAILY NEEDED FOR SHORTNESS OF BREATH AND COUGH 54 g 1 4 Active Montelukast Sodium 10 MG Oral Tablet (Singulair) Take 1 Tablet by mouth in the morning. 30 Tablet 4 Active Warfarin Sodium 5 MG Oral Tablet (Coumadin) Take 2 tablets by mouth on Saturday and 1 tablet by mouth all other days as directed by anticoagulation clinic. 35 Tablet 2 4 Active Allopurinol 100 MG Oral Tablet (Zyloprim) TAKE 1 TABLET BY MOUTH IN THE MORNING 30 Tablet 1 4 Active Omeprazole 40 MG Oral Capsule Delayed Release (PriLOSEC)Indicatio ns:Type 2 diabetes mellitus with hemoglobin A1c goal of less than 7.0% ([facility]) TAKE 1 CAPSULE BY MOUTH ONCE DAILY ONE HOUR BEFORE BREAKFAST 90 Capsule 3 4 Active Benzonatate 100 MG Oral Capsule (Tessalon Perles)Indications: Bronchitis Take 1 Capsule by mouth 3 times a day as needed for Cough. Do not cut, crush, or chew. 90 Capsule 1 4 Active predniSONE 10 MG Oral Tablet (Deltasone)Indicati ons:Bronchitis Take 5 tabs for 2 days, 4 tabs for 2 days, 3 tabs for 2 days, 2 tabs for 2 days 1 tab for 2 days 30 Tablet 4 Active traMADol HCl ER 200 MG Oral Tablet Extended Release 24 Hour (Ultram ER)Indications:Cont rolled substance agreement signed Take 1 Tablet by mouth in the morning. 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, [place] Atrial fibrillation 11/03/2012 Stasis dermatitis 03/03/2012 Dyslipidemia, goal LDL below 70 01/10/2012 documented as of this encounter (statuses as of 02/12/2024) Resolved Problems Problem Noted Date Diagnosed Date [...] as of this encounter (statuses as of 02/12/2024) Immunizations Name Administration Dates Next Due Hepatitis B, 20+ yrs 03/18/2014,10/13/2013,09/14 Pneumococcal Polysaccharide PPV23 (Pneumovax) 06/13/2012 Seasonal Influenza, PF, 6 M & above, IM , (FluLaval or Fluzone) 05/28/2023,10/16/2021,08/14/2019,12/01/2018,10/31/2017 Seasonal Influenza, Quadriva lent, No Preserve, IM [...] on file documented as of this encounter Progress Notes * Zegarski, Elda M, radiological technician - 02/12/2024 8:24 AM EDT Contacts Type Contact Phone/Fax 02/12/2024 08:22 AM EDT Phone (Outgoing) Candido Curry (Self) [phone] (M) Left Message Subjective Advised patient to contact 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 Clinic if any unusual bruising or bleeding, recent illness, changes in medication, or questions/concerns. PT/INR results, Coumadin dose instructions, and next PT/INR date communicated as noted by Pharmacist: Yes ELDA MORENO CPhT 02/12/2024, 8:24 AM * Ayaka Fox RPh - 02/11/2024 9:43 PM EDT Images from the original note were not included. Coumadin Clinic (region specific) Objective Current Warfarin Dose As of 02/12/2024 Warfarin maintenance plan: 2.5 mg (5 mg x 0.5) every Mon; 5 mg (5 mg x 1) all other days INR Result As of 02/12/2024 INR goal: 2.0-3.0 INR used for dosin.2 (02/11/2024) Assessment & Plan Warfarin Plan As of 02/12/2024 Full warfarin instructions: 02/11: Hold; Otherwise 2.5 mg every Mon, Fri; 5 mg all other days Next INR check: 02/20/2024 Repeat PT/INR in 1.5 week(s) Weekly dose: decreased Additional Dosing Information: Description Home rough rounder machine to contact patient with dose instructions as noted. Ayaka Fox RPh 02/11/2024, 9:43 PM documented in this encounter Plan of Treatment Upcoming Encounters Date Type Department Care Team (Late st Contact Info) Description 02/21/2024 6:30 AM EDT 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 Centralized Clinical Pharmacy Services, [place] Munoz [address] [place] [address] [place] [address] [facility] [address] [facility] [place] [address] 03/24/2024 3:40 PM EDT Telemedicine [facility] [address] [facility] [phone] Jamey Koch MD [address] [place] [facility] [place] [place] [address] Health Maintenance Due Date Last Done Comments [...] 12/22/2022, Additional history exists Cologuard 01/02/2025 01/02/2022, 0510/2021, 12/26/2021 Colorectal Cancer Screening 01/02/2025 DTaP,Tdap,and Td [...] Not on filedocumented as of this encounter Procedures Procedure Name Priority Date/Time Associated Diagnosis Comments OUTSIDE LAB-PT/INR Routine 02/11/2024 documented in this encounter Results * OUTSIDE LAB-PT/INR (02/11/2024) INR-OUTSIDE LAB 3.2 HOME FINGERSTIC K DEVICE History Per Patient LABORATORY HOME FINGERSTICK DEVICE documented in this encounter Visit Diagnoses Diagnosis Longstanding persistent atrial fibrillation (HCC)- Primary documented in this encounter Care Teams Body Bumper Relationship Specialty Start Date End Date Jamey Koch MD [address] [place] [address] PCP - General 03/06/06 documented as of this encounter
--- OUTSIDE RECORDS SUMMARY | 2024-02-24 22:43 | External Medical Summary | Summary of Care ---
Author Name Unknown Organization [facility] Address [address] [place] [address] Phone [phone] Care Team Providers Care Data Management Analyst Name Role Phone Jamey Koch MD Primary Care Provider +1- [phone] Encounter Details Date Type Department Care Team (Late st Contact Info) Description 02/11/2024 Result Scan Unspecified Department Ayaka Fox, [facility] [phone] [place] [address] <No scans attached> Allergies No known active allergiesdocumented as of this encounter (statuses as of 02/11/2024) Medications Medication Sig Dispensed Refills Start Date End Date Status ASPIRIN 81 MG PO CHEW One pill by mouth once a day with food 100 Tab 5 0 Active Warfarin Sodium 7.5 MG Oral Tablet (Coumadin)Indicatio ns: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,[employer]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 TAKE ONE-HALF [...] hemoglobin A1c goal of less than 7.0% ([facility]) TAKE 1 CAPSULE BY MOUTH ONCE DAILY [...] as of this encounter (statuses as of 02/11/2024) Active Problems Problem Noted Date Diagnosed Date [...] -- AHI 30.8, CPAP 8 cwp 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 Never true 12/11/2022 Sex and Gender Information Value Date Recorded Sex Assigned at Not on file Gender Identity Not on file Sexual Orientation Not on file Job Start Date Occupation Industry Not on file Not on file Not on file documented as of this encounter Plan of Treatment Upcoming Encounters Date Type Department Care Team (Latest Contact Info) Description 02/12/2024 6:30 AM EDT 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 Centralized Clinical Pharmacy Services, [place] Munoz [address] [place] [address] [place] [address] [facility] 58 60 [facility] [place] [address] Longstanding persistent atrial fibrillation (HCC)* 03/24/2024 3:40 PM EDT Telemedicine [place] [address] [address] [facility] [id number] Jamey Koch MD [address] [place] [place] [address] Health Maintenance Due Date Last Done [...] 12/18/2017, Additional history exists COVID-19 Vaccine ( - season) 2023 GFR 05/28/2024 05/28/2023, 11/26, 12/22/2022, Additional history exists Cologuard 01/02/2025 01/02/2022, 10/2021, 12/26/2021 Colorectal Cancer Screening 01/02/2025 DTaP,Tdap,and [...] Name Priority Date/Time Associated Diagnosis Comments OUTSIDE LAB RESULTS 02/11/2024 documented in this encounter Results * OUTSIDE LAB RESULTS (02/11/2024) 02/11/2024 Ayaka Fox [facility] LABORATORY documented in this encounter Care Teams Data Management Analyst Relationship Specialty Start Date End Date Jamey Koch MD [address] [place] [address] PCP - General 03/06/06 documented as of this encounter
--- OUTSIDE RECORDS SUMMARY | 2024-02-24 22:43 | External Medical Summary | Summary of Care ---
Author Name Unknown Organization [facility] Address [address] [place] [address] Phone [phone] Care Team Providers Care Zipper Ironer Name Role Phone Jamey Koch MD Primary Care Provider +1- [phone] Reason for Visit * Reason Comments Dosage Adjustment Via Phone (anticoag in) Encounter Details Date Type Department Care Team (Latest Contact Info) Description 01/13/2024 6:30 AM EDT 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 Pharmacy Call Center [phone] [place] [address] 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 For edema Active Allopurinol 100 MG Oral Tablet (Zyloprim) Take 1 Tablet by mouth in the morning. 90 Tablet 3 3 Active Omeprazole 40 MG Oral Capsule Delayed Release (PriLOSEC)Indicatio ns:Type 2 diabetes mellitus with hemoglobin A1c goal of less than 7.0% ([facility]) TAKE 1 CAPSULE BY MOUTH ONCE DAILY 1 HOUR BEFORE BREAKFAST 90 Capsule 3 3 Active Ondansetron 4 MG Oral Tablet Disintegrating [...] THE EVENING 90 Tablet 3 4 Active Azithromycin 250 MG Oral Tablet (Zithromax Z-Malick)Indications:B ronchitis Take two tablets by mouth on first day, then 1 tablet daily until gone 6 Tablet 4 Active Benzonatate 100 MG Oral Capsule (Tessalon Perles)Indications: Bronchitis Take 1 Capsule by mouth 3 times a day as needed for Cough. Do not cut, crush, or chew. 90 Capsule 1 4 Active Albuterol Sulfate HFA 108 (90 Base) MCG/ACT Inhalation Aerosol SolutionIndications :Cough,PND (post-nasal drip) INHALE 2 PUFFS BY MOUTH 4 TIMES DAILY NEEDED FOR SHORTNESS OF BREATH AND COUGH 54 g 1 4 Active Montelukast Sodium 10 MG Oral Tablet (Singulair) Take 1 Tablet by mouth in the morning. 30 Tablet 4 Active predniSONE 10 MG Oral Tablet (Deltasone)Indicati ons:Bronchitis Take 5 tabs for 2 days, 4 tabs for 2 days, 3 tabs for 2 days, 2 tabs for 2 days 1 tab for 2 days 30 Tablet 4 Active Fluticasone Propionate HFA 44 MCG/ACT Inhalation Aerosol Inhale 2 Puffs by mouth in the morning and 2 Puffs before bedtime. Do all this for 14 days. 10 g 4 01/14/20 24 Active traMADol HCl ER 200 MG Oral Tablet Extended Release 24 Hour (Ultram ER)Indications:Cont rolled substance agreement signed Take 1 Tablet by mouth in the morning. 30 Tablet 4 Active Warfarin Sodium 5 MG Oral Tablet (Coumadin) Take 2 tablets by mouth on Saturday and 1 tablet by mouth all other days as directed by anticoagulation clinic. 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 Pain in limb 07/26/2000 01/10/2012 HYPERTENSION NOS 10/09/1999 07/01/2009 Overview: Per HTN Taxonomy documented as of this encounter (statuses as of 01/13/2024) Immunizations Name Administration Dates Next Due Hepatitis B, 20+ yrs 03/18/2014,10/13/2013,09/14 Pneumococcal Polysaccharide PPV23 (Pneumovax) 06/13/2012 Seasonal Influenza, PF, 6 M & above, IM , (FluLaval or Fluzone) 05/28/2023,10/16/2021,08/14/2019,01/2018,10/31/2017 Seasonal Influenza, Quadriva lent, No Preserve, IM 06/26/2016,08/10/2015 06/26/2017 Seasonal Influenza, Split, I IV3, With Preserve, Inj 07/30/2014,08/03/2013,06/13/2012 07/30/2015 TDAP (age 10 and older)(Boostrix) 06/18/2012 TDAP (age 11 and older)(Adacel) 10/31/2016 documented as of this encounter Social [...] as of this encounter Progress Notes * Sanjay Lpoez, manager building - 01/13/2024 9:30 AM EDT Contacts Type Contact Phone/Fax 01/13/2024 09:28 AM EDT Phone (Outgoing) Candido Curry (Self) [phone] (M) Left Message Subjective PT/INR results, Coumadin dose instructions, and next PT/INR date communicated as noted by Pharmacist: Yes Sanjay Lopez manager building 01/13/2024, 9:30 AM * Ayaka Fox RP - 01/11/2024 10:07 PM EDT Images from the original note were not included. Coumadin Clinic (region specific) Objective Current Warfarin Dose As of 01/13/2024 Warfarin maintenance plan: 10 mg (5 mg x 2) every Fri; 5 mg (5 mg x 1) all other days INR Result As of 01/13/2024 INR goal: 2.0-3.0 INR used for dosin.3 (01/10/2024) Assessment & Plan Warfarin Plan As of 01/13/2024 Full warfarin instructions: 01/12: Hold; Otherwise 5 mg every day Next INR check: 01/22/2024 Repeat PT/INR in 1.5 week(s) Weekly dose: decreased Additional Dosing Information: Description Home tension machine operator to contact patient with dose instructions as noted. Ayaka Fox RPh 01/11/2024, 10:08 PM documented in this encounter Plan of Treatment Upcoming Encounters Date Type Department Care Team (Late st Contact Info) Description 01/23/2024 6:30 AM EDT 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 Pharmacy Call Center WB [phone] [place] [address] [facility] 58 60 Public [facility] [place] [phone] 03/24/2024 3:40 PM EDT Telemedicine [address] [place] [address] Jamey Koch MD [address] [place] [address] Health Maintenance Due Date Last Done Comments [...] 03/03/2018 Diabetic Eye Exam 08/10/2022 08/10/2021, , 10/20/2013, Additional history exists HbA1c 09/06/2022 03/06/2022, 10/24, 12/18/2017, Additional history exists COVID-19 Vaccine ( season) 2023 GFR 05/28/2024 05/28/2023, 11/26, 12/22/2022, Additional history exists Cologuard 01/02/2025 01/02/2022, 05/10/2021, 12/26/2021 Colorectal Cancer Screening 01/02/2025 DTaP,Tdap,and Td [...] Date/Time Associated Diagnosis Comments OUTSIDE LAB-PT/INR Routine 01/10/2024 documented in this encounter Results * OUTSIDE LAB-PT/INR (01/10/2024) INR-OUTSIDE LAB 3.3 History Per Patient LABORATORY documented in this encounter Visit Diagnoses Diagnosis Longstanding persistent atrial fibrillation (HCC)- Primary documented in this encounter Care Teams Zipper Ironer Relationship Specialty Start Date End Date Jamey Koch MD [address] [place] [address] PCP - General 03/06/06 documented as of this encounter
--- OUTSIDE RECORDS SUMMARY | 2024-02-24 22:43 | External Medical Summary | Summary of Care ---
Author Name Unknown Organization [facility] Address [address] [place] [address] Phone [phone] Care Team Providers Care Brush And Broom Clipper Name Role Phone Jamey Koch MD Primary Care Provider +1- [phone] Reason for Visit * Reason Comments eRx-Medication Refill Encounter Details Date Type Department Care Team (Late st Contact Info) Description 02/02/2024 Refill [facility] [address] [place] [address] Jamey Koch MD [address] [place] [address] Controlled substance agreement signed Allergies No known active allergiesdocumented as of this encounter (statuses as of 02/04/2024) Medications Medication Sig Dispensed Refills Start Date End Date Status ASPIRIN 81 MG PO CHEW One pill by mouth once a day with food 100 Tab 5 0 Active Warfarin Sodium 7.5 MG Oral Tablet (Coumadin)Indicatio ns: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 30 Tablet 4 Active traMADol HCl ER [...] goal of less than 7.0% ([facility]) TAKE 1 CAPSULE BY MOUTH ONCE DAILY [...] for 2 days 30 Tablet 4 Active Amoxicillin-Pot Clavulanate 875-125 MG Oral Tablet (Augmentin)Indicati ons:Bronchitis Take 1 Tablet by mouth in the morning and 1 Tablet before bedtime. Do all this for 10 days. 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, [place] Atrial fibrillation 11/03/2012 Stasis dermatitis 03/03/2012 Dyslipidemia, goal LDL below 70 01/10/2012 documented as of this encounter (statuses as of 02/04/2024) Resolved Problems Problem Noted Date Diagnosed Date [...] as of this encounter (statuses as of 02/04/2024) Immunizations Name Administration Dates Next Due Hepatitis B, 20+ yrs 03/18/2014,10/13/2013,09/14 Pneumococcal Polysaccharide PPV23 (Pneumovax) 06/13/2012 Seasonal Influenza, PF, 6 M & above, IM , (FluLaval or Fluzone) 05/28/2023,10/16/2021,08/14/2019,1201/2018,10/31/2017 Seasonal Influenza, Quadriva lent, No Preserve, IM [...] encounter Miscellaneous Notes * Telephone Encounter - Ericka Goldstein [facility] - 02/04/2024 7:08 AM EDT Refused Prescriptions: Disp Refills traMADol HCl ER 200 MG Oral Tablet Extende*30 Tab*0 Sig: TAKE 1TABLET BY MOUTH IN THE MORNINGRefused By: ERICKA GOLDSTEIN for Refusal: Duplicate Request- documented in this encounter Plan of Treatment Upcoming Encounters Date Type Department Care Team (Late st Contact Info) Description 02/10/2024 6:30 AM EDT 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 [facility], Ruddy Munoz [address] [place] [address] [place] [phone] [facility] 58 60 [facility] [place] [address] 03/24/2024 3:40 PM EDT Telemedicine [facility] [address] [place] [address] Jamey Koch MD [address] [place] [facility] [place] [address] Health Maintenance Due Date Last Done Comments [...] 08/10/2022 08/10/2021, , 08/09/2012 HbA1c 09/06/2022 03/06/2022, 0302/2022, 12/18/2017, Additional history exists COVID-19 Vaccine (1 - 2022- season) 2023 GFR 05/28/2024 05/28/2023, 11/26, 12/22/2022, [...] as of this encounter Visit Diagnoses Diagnosis Controlled substance agreement signed Encounter for long-term (current) use of other medications documented in this encounter Care Teams Brush And Broom Clipper Relationship Specialty Start Date End Date Jamey Koch MD [address] [place] [address] PCP - General 03/06/06 documented as of this encounter
--- OUTSIDE RECORDS SUMMARY | 2024-02-24 22:43 | External Medical Summary | Summary of Care ---
Author Name Unknown Organization [facility] Address [address] [place] [address] Phone [phone] Care Team Providers Care Kiln Cleaner Name Role Phone Jamey Koch MD Primary Care Provider +1- [phone] Reason for Visit * Reason Comments Acute Encounter Details Date Type Department Care Team (Late st Contact Info) Description 01/27/2024 10:20 AM EDT Telemedicine [facility] [address] [place] [address] Jamey Koch MD [address] [place] [address] Chronic cough*; Bronchitis Allergies No known active allergiesdocumented as of this encounter (statuses as of 01/27/2024) Medications Medication Sig Dispensed Refills Start Date End Date Status ASPIRIN 81 MG PO CHEW One pill by mouth once a day with food 100 Tab 5 0 Active Warfarin Sodium 7.5 MG Oral Tablet (Coumadin)Indicati ons: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,long-term current use of 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 therapy TAKE ONE-HALF [...] on tongue. 30 Tablet 1 3 Active HYDROcodone-Acetam inophen 5-325 MG Oral TabletIndications: Primary osteoarthritis of both knees Take 0.5-1 Tablets by mouth every 8 hours as needed for Pain, Mild. 30 Tablet 3 Active Spironolactone 25 MG Oral Tablet (Aldactone)Indicat [...] goal of less than 7.0% ([facility]) TAKE 1 CAPSULE BY MOUTH ONCE DAILY ONE HOUR BEFORE BREAKFAST 90 Capsule 3 4 Active Benzonatate 100 MG Oral Capsule (Tessalon Perles)Indications :Bronchitis Take 1 Capsule by mouth 3 times a day as needed for Cough. Do not cut, crush, or chew. 90 Capsule 1 4 Active predniSONE 10 MG Oral Tablet (Deltasone)Indicat ions:Bronchitis Take 5 tabs for 2 days, 4 tabs for 2 days, 3 tabs for 2 days, 2 tabs for 2 days 1 tab for 2 days 30 Tablet 4 Active Amoxicillin-Pot Clavulanate 875-125 MG Oral Tablet (Augmentin)Indicat ions:Bronchitis Take 1 Tablet by mouth in the morning and 1 Tablet before bedtime. Do all this for 10 days. 20 Tablet 4 02/06/20 24 Active Azithromycin 250 MG Oral Tablet (Zithromax Z-Malick)Indications: Bronchitis Take two tablets by mouth on first day, then 1 tablet daily until gone 6 Tablet 4 01/27/20 24 Discontinu ed(Medicat ion List Clean Up) Benzonatate 100 MG Oral Capsule (Tessalon Perles)Indications :Bronchitis Take 1 Capsule by mouth 3 times a day as needed for Cough. Do not cut, crush, or chew. 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 I was in a hospital or clinic location. After connecting through televRitoto,patient was verified with two unique identifiers. Patient (or authorized legal medical service representative) was then informed that this was a Telemedicine visit and being conducted confidentially over secure lines. Methods to assure confidentiality were taken. Patient acknowledged consent and understanding of pr ivacy and security of the Telemedicine visit. The patient agreed to participate. Telemedicine visit with patient. He presents for acute visit for ongoing cough and chest congestion. Initially treated in the end of November with a Z-Malick and prednisone. Did feel some improvement with that treatment. In early December had a return of symptoms. They never went away completely. He was treated with Singulair, albuterol inhaler, Tessalon Perles, doxycycline, prednisone. He was given a steroid inhaler as well but could not get it filled at the pharmacy. Again, he felt as though the treatments made an improvement in his symptoms but they did not resolve. He states they are returning againwith worsening cough productive of mucus. He thinks it is coming from his chest. States his shortness of breath is at its baseline. No fever. No respiratory distress. On the video visit, no evidence for acute distress. Able to talk in full sentences. Coughing duringvisit. Given over 6 weeks of illness, suggest a chest x-ray. Since they have helped each time, will again do a course of antibiotic and prednisone. He may use Tessalon Perles as needed. May use albuterol inhaler as needed. Should have an office visit for any worsening symptoms. 20 min with pt and documentation Jamey Koch MD documented in this encounter Plan of Treatment Upcoming Encounters Date Type Department Care Team (Late st Contact Info) Description 02/10/2024 6:30 AM EDT 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 Pharmacy Call Center WB [phone] Public [place] [address] [facility] 58 60 [facility] [place] [address] 03/24/2024 3:40 PM EDT Telemedicine [facility] [address] [facility] [address] Jamey Koch MD [address] [place] [address] Scheduled Orders Name Type Priority Associated Diagnoses Orde r Schedule XR CHEST 2 VIEWS Medical Imaging Routine Chronic cough Expected: 01/27/2024, Expires: 02/25/2025 Health Maintenance Due Date Last Done Comments HIV Screening 1977 Hepatitis C Screening 02/23/1980 Colonoscopy 2007 Fecal Occult Blood Test 2007 Sigmoidoscopy 2007 Zoster Vaccines (1 of 2) 02/23/2012 Pneumococcal Vaccine: Pediatrics (0 to 5 Years) and At-Risk Patients (6 to 64 Years) (2 of 2 - PCV) 06/13/2013 06/13/2012 Diabetic Foot Exam 08/10/2016 08/10/2015, 1 09/12/2012, 10/03/2012, Additional history exists Albumin/Creatinine Ratio 12/18/201812/18/2 018, 08/10/2015, 07/30/2014, Additional history exists Depression [...] as of this encounter Visit Diagnoses Diagnosis Chronic cough- Primary Cough Bronchitis Bronchitis, not specified as acute or chronic documented in this encounter Care Teams Kiln Cleaner Relationship Specialty Start Date End Date Jamey Koch MD [address] [place] [address] PCP - General 03/06/06 documented as of this encounter
--- OUTSIDE RECORDS SUMMARY | 2024-02-24 22:43 | External Medical Summary | Summary of Care ---
Author Name Unknown Organization [facility] Address [address] [place] [address] Phone [phone] Care Team Providers Care Mechanical Piping Designer Name Role Phone Jamey Koch MD Primary Care Provider +1- [phone] Encounter Details Date Type Department Care Team (Late st Contact Info) Description 01/27/2024 Orders Only PATIENT PORTAL DO NOT DELETE THIS DEPT USED BY [place] [phone] Allergies No known active allergiesdocumented as of this encounter (statuses as of 01/27/2024) Medications Medication Sig Dispensed Refills Start Date End Date Status ASPIRIN 81 MG PO CHEW One pill by mouth once a day with food 100 Tab 5 0 Active Warfarin Sodium 7.5 MG Oral Tablet (Coumadin)Indicatio ns: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,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 therapy TAKE [...] hemoglobin A1c goal of less than 7.0% (HCC) TAKE 1 CAPSULE BY MOUTH ONCE DAILY ONE HOUR BEFORE BREAKFAST 90 Capsule 3 4 Active documented as of this encounter [...] -- AHI 30.8, CPAP 8 cwp 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, [place] Atrial fibrillation 11/03/2012 Stasis dermatitis 03/03/2012 Dyslipidemia, [...] Info) Description 01/27/2024 10:20 AM EDT Telemedicine [facility] [address] [facility] [place] [phone] Jamey Koch MD [address] [facility] [place] [address] 02/10/2024 6:30 AM EDT [facility] Pharmacy Call Center WB [phone] Public [place] [address] [facility] 58 60 [facility] [place] [address] 03/24/2024 3:40 PM EDT Telemedicine [facility] [address] [facility] [place] [address] Jamey Koch MD [address] [place] [facility] [place] [address] Health Maintenance Due Date Last Done Comments [...] Not on filedocumented as of this encounter Care Teams Mechanical Piping Designer Relationship Specialty Start Date End Date Jamey Koch MD [address] [place] [address] PCP - General 03/06/06 documented as of this encounter
--- OUTSIDE RECORDS SUMMARY | 2024-02-24 22:43 | External Medical Summary | Summary of Care ---
Author Name Unknown Organization [facility] Address [address] [place] [address] Phone [phone] Care Team Providers Care Community Health Director Name Role Phone Jamey Koch MD Primary Care Provider +1- [phone] Encounter Details Date Type Department Care Team (Late st Contact Info) Description 01/10/2024 Result Scan Unspecified Department Ayaka Fox, [facility] [address] [place] [address] <No scans attached> Allergies No known active allergiesdocumented as of this encounter (statuses as of 01/10/2024) Medications Medication Sig Dispensed Refills Start Date End Date Status ASPIRIN 81 MG PO CHEW One pill by mouth once a day with food 100 Tab 5 0 Active Warfarin Sodium 7.5 MG Oral Tablet (Coumadin)Indicatio ns: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 Apply to joints as neede. 0 Active Furosemide 20 MG Oral Tablet (Lasix) Take 1 Tablet by mouth daily as needed. For edema 0 Active Allopurinol 100 MG Oral Tablet (Zyloprim) Take 1 Tablet by mouth in the morning. 90 Tablet 3 3 Active Omeprazole 40 MG Oral Capsule Delayed Release (PriLOSEC)Indicatio ns:Type 2 diabetes mellitus with hemoglobin A1c goal of less than 7.0% ([facility]) TAKE 1 CAPSULE BY MOUTH [...] as needed for Pain, Mild. 30 Tablet 0 3 Active Spironolactone 25 MG Oral Tablet (Aldactone)Indicati ons:Acute on chronic heart failure with preserved ejection fraction (HCC) Take 0.5 Tablets by mouth in the morning. 45 Tablet 3 3 Active Metoprolol Succinate 50 MG Oral Capsule ER 24 Hour Sprinkle Take 50 mg by mouth in the morning and 50 mg in the evening. 180 Capsule 0 4 Active Atorvastatin Calcium 40 MG Oral Tablet (Lipitor)Indication s:Dyslipidemia, goal LDL below 100 TAKE 1 TABLET BY MOUTH ONCE DAILY IN THE EVENING 90 Tablet 3 4 Active Azithromycin 250 MG Oral Tablet (Zithromax Z-Malick)Indications:B ronchitis Take two tablets by mouth on first day, then 1 tablet daily until gone 6 Tablet 0 4 Active Benzonatate 100 MG Oral Capsule [...] by mouth in the morning. 30 Tablet 0 4 Active predniSONE 10 MG Oral Tablet (Deltasone)Indicati ons:Bronchitis Take 5 tabs for 2 days, 4 tabs for 2 days, 3 tabs for 2 days, 2 tabs for 2 days 1 tab for 2 days 30 Tablet 0 4 Active Doxycycline Hyclate 100 MG Oral Capsule Take 1 Capsule by mouth in the morning and 1 Capsule before bedtime. Do all this for 10 days. Until gone.. 20 Capsule 0 4 01/10/20 24 Active Fluticasone Propionate HFA 44 MCG/ACT Inhalation Aerosol Inhale 2 Puffs by mouth in the morning and 2 Puffs before bedtime. Do all this for 14 days. 10 g 0 4 01/14/20 24 Active traMADol HCl ER 200 MG Oral Tablet Extended Release 24 Hour (Ultram ER)Indications:Cont rolled substance agreement signed Take 1 Tablet by mouth in the morning. 30 Tablet 0 4 Active Warfarin Sodium 5 MG Oral Tablet (Coumadin) Take 2 tablets by mouth on Saturday and 1 tablet by mouth all other days as directed by anticoagulation clinic. 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, [place] Atrial fibrillation 11/03/2012 Stasis dermatitis 03/03/2012 Dyslipidemia, goal LDL below 70 01/10/2012 documented as of this encounter (statuses as of 01/10/2024) Resolved Problems Problem Noted Date Diagnosed Date [...] as of this encounter (statuses as of 01/10/2024) Immunizations Name Administration Dates Next Due Hepatitis [...] EDT 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 Pharmacy Call Center WB [phone] [facility] Ruddy Munoz [place] [address] [facility] 58 60 [facility] Ruddy Munoz [place] [address] Longstanding persistent atrial fibrillation (HCC)* 03/24/2024 3:40 PM EDT Telemedicine [facility] [address] [place] [address] Jamey Koch MD [address] [place], [place] [id number] Health Maintenance Due Date Last Done Comments [...] Date/Time Associated Diagnosis Comments OUTSIDE LAB RESULTS 01/10/2024 documented in this encounter Results * OUTSIDE LAB RESULTS (01/10/2024) 01/10/2024 Ayaka Fox [facility] LABORATORY documented in this encounter Care Teams Community Health Director Relationship Specialty Start Date End Date Jamey Koch MD [address] [place] [address] PCP - General 03/06/06 documented as of this encounter
--- OUTSIDE RECORDS SUMMARY | 2024-02-24 22:43 | External Medical Summary | Summary of Care ---
Author Name Unknown Organization [facility] Address [address] [place] [address] Phone [phone] Care Team Providers Care Carburetor Rebuilder Name Role Phone Jessica Regan MD Primary Care Provider +1- [phone] Reason for Visit * Reason Comments eRx-Medication Refill Encounter Details Date Type Department Care Team (Late st Contact Info) Description 01/19/2024 Refill [facility] [address] [place] [address] Jessica Regan MD [address] [place] [address] Encounter for long-term (current) use of other medications*; Type 2 diabetes mellitus with hemoglobin A1c goal of less than 7.0% ([facility]) Allergies No known active allergiesdocumented as of this encounter (statuses as of 01/21/2024) Medications Medication Sig Dispensed Refills Start Date End Date Status ASPIRIN 81 MG PO CHEW One pill by mouth once a day with food 100 Tab 5 08/03/20 10 Active Warfarin Sodium 7.5 MG Oral Tablet (Coumadin)Indicati ons: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,assisted current use of 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 therapy TAKE ONE-HALF [...] Pain, Mild. 30 Tablet 02/06/20 23 Active Spironolactone 25 MG Oral Tablet (Aldactone)Indicat ions:Acute on chronic heart failure with preserved ejection fraction (HCC) Take 0.5 Tablets by mouth in the morning. 45 Tablet 3 02/20/20 23 Active Metoprolol Succinate 50 MG Oral Capsule ER 24 Hour Sprinkle Take 50 mg by mouth in the morning and 50 mg in the evening. 180 Capsule 11/28/19 24 Active Atorvastatin Calcium 40 MG Oral Tablet (Lipitor)Indicatio ns:Dyslipidemia, goal LDL below 100 TAKE 1 TABLET BY MOUTH ONCE DAILY IN THE EVENING 90 Tablet 3 12/12/19 24 Active Azithromycin 250 MG Oral Tablet (Zithromax Z-Malick)Indications: Bronchitis Take two tablets by mouth on first day, then 1 tablet daily until gone 6 Tablet 12/23/19 24 Active Benzonatate 100 MG Oral Capsule (Tessalon Perles)Indications :Bronchitis Take 1 Capsule by mouth 3 times a day as needed for Cough. Do not cut, crush, or chew. 90 Capsule 1 12/23/19 24 Active Albuterol Sulfate HFA 108 (90 Base) MCG/ACT Inhalation Aerosol SolutionIndication s:Cough,PND (post-nasal drip) INHALE 2 PUFFS BY MOUTH 4 TIMES DAILY NEEDED FOR SHORTNESS OF BREATH AND COUGH 54 g 1 12/23/19 24 Active Montelukast Sodium 10 MG Oral Tablet (Singulair) Take 1 Tablet by mouth in the morning. 30 Tablet 12/31/19 24 Active predniSONE 10 MG Oral Tablet (Deltasone)Indicat ions:Bronchitis Take 5 tabs for 2 days, 4 tabs for 2 days, 3 tabs for 2 days, 2 tabs for 2 days 1 tab for 2 days 30 Tablet 12/31/19 24 Active traMADol HCl ER 200 MG Oral Tablet Extended Release 24 Hour (Ultram ER)Indications:Con trolled substance agreement signed Take 1 Tablet by mouth in the morning. 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, [place] Atrial fibrillation 11/03/2012 Stasis dermatitis 03/03/2012 Dyslipidemia, goal LDL below 70 01/10/2012 documented as of this encounter (statuses as of 01/21/2024) Resolved Problems Problem Noted Date Diagnosed Date [...] as of this encounter (statuses as of 01/21/2024) Immunizations Name Administration Dates Next Due Hepatitis [...] encounter Miscellaneous Notes * Telephone Encounter - Vu Parra [facility] - 01/21/2024 4:10 PM EDT Signed Prescriptions: Disp Refills Omeprazole 40 MG Oral Capsule Delayed Rele*90 Cap*3 Sig: TAKE 1 CAPSULE BY MOUTH ONCE DAILY ONE HOUR BEFORE BREAKFASTAuthorizing Provider: JESSCIA REGAN User: VU PARRA documented in this encounter Plan of Treatment Upcoming Encounters Date Type Department Care Team (Late st Contact Info) Description 01/23/2024 6:30 AM EDT 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 Pharmacy Call Center [address] [place] [address] [facility] [address] [place] [address] 03/24/2024 3:40 PM EDT Telemedicine [place] [address] [place] [address] Jessica Regan MD [address] [place] [address] Scheduled Orders Name Type Priority Associated Diagnoses Orde r Schedule LIPID PANEL WITH DIRECT LDL IF TG IS HIGH Lab Routine Type 2 diabetes mellitus with hemoglobin A1c goal of less than 7.0% (HCC) Expected: 01/28/2024 (Approximate), Expires: 01/27/2025 URIC ACID Lab Routine Encounter for long-term (current) use of other medications Expected: 01/28/2024 (Approximate), Expires: 01/27/2025 VITAMIN B12 Lab Routine Encounter for long-term (current) use of other medications Expected: 01/28/2024 (Approximate), Expires: 01/27/2025 MAGNESIUM Lab Routine Encounter for long-term (current) use of other medications Expected: 01/28/2024 (Approximate), Expires: 01/27/2025 COMPREHENSIVE METABOLIC PANEL Lab Routine Type 2 diabetes mellitus with hemoglobin A1c goal of less than 7.0% (HCC) Expected: 02/04/2024 (Approximate), Expires: 01/20/2025 CBC Lab Routine Type 2 diabetes mellitus with hemoglobin A1c goal of less than 7.0% (HCC) Expected: 01/28/2024 (Approximate), Expires: 01/27/2025 HEMOGLOBIN A1C Lab Routine Type 2 diabetes mellitus with hemoglobin A1c goal of less than 7.0% (HCC) Expected: 01/28/2024 (Approximate), Expires: 01/27/2025 Health Maintenance Due Date Last Done Comments [...] 10/20/2013, Additional history exists HbA1c 09/06/2022 03/06/2022, 0302/2022, 12/18/2017, Additional history exists COVID-19 Vaccine ( [...] as of this encounter Visit Diagnoses Diagnosis Encounter for long-term (current) use of other medications- Primary Type 2 diabetes mellitus with hemoglobin A1c goal of less than 7.0% (HCC) documented in this encounter Care Teams Carburetor Rebuilder Relationship Specialty Start Date End Date Jessica Regan MD [address] [place] [address] PCP - General 03/06/06 documented as of this encounter
--- OUTSIDE RECORDS SUMMARY | 2024-02-24 22:43 | External Medical Summary | Summary of Care ---
Author Name Unknown Organization [facility] Address [address] [place] [address] Phone [phone] Care Team Providers Care Flight Data Technician Name Role Phone Jessica Regan MD Primary Care Provider +1- [phone] Reason for Visit * Reason Onset Date Comments Medication Refill 02/02/2024 Encounter Details Date Type Department Care Team (Late st Contact Info) Description 02/02/2024 Refill [facility] [address] [place] [address] Jessica Regan MD [address] [place] [address] Controlled substance agreement signed Allergies No known active allergiesdocumented as of this encounter (statuses as of 02/04/2024) Medications Medication Sig Dispensed Refills Start Date End Date Status ASPIRIN 81 MG PO CHEW One pill by mouth once a day with food 100 Tab 5 0 Active Warfarin Sodium 7.5 MG Oral Tablet (Coumadin)Indicati ons: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,halfway current use of 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 therapy TAKE ONE-HALF [...] hemoglobin A1c goal of less than 7.0% ([facility]) TAKE 1 CAPSULE BY MOUTH ONCE DAILY [...] days. 20 Tablet 4 02/06/20 24 Active traMADol HCl ER 200 MG Oral Tablet Extended Release 24 Hour (Ultram ER)Indications:Con trolled substance agreement signed Take 1 Tablet by mouth in the morning. 30 Tablet 4 Active traMADol HCl ER 200 MG Oral Tablet Extended Release 24 Hour (Ultram ER)Indications:Con trolled substance agreement signed Take 1 Tablet by mouth in the morning. 30 Tablet 4 02/02/20 24 Discontinu ed(Refill) documented as of this [...] -- AHI 30.8, CPAP 8 cwp DME: HEALTH PLAN ADVISOR, [place] Atrial fibrillation 11/03/2012 Stasis dermatitis 03/03/2012 Dyslipidemia, [...] encounter Miscellaneous Notes * Telephone Encounter - Jessica Regan MD - 02/04/2024 1:01 PM EDTSigned Prescriptions: Disp Refills traMADol HCl ER 200 MG Oral Tablet Extende*30 Tab*0 Sig: Take 1 Tablet by mouth in the morning.Authorizing Provider: JESSICA REGAN * Telephone Encounter - Ericka Squires [facility] - 02/04/2024 7:09 AM EDT Pending Prescriptions: Disp Refills traMADol HCl ER 200 MG Oral Tablet Extende*30 Tab*0 Sig: Take 1 Tablet by mouth in the morning. * Telephone Encounter - Ericka Squires [facility] - 02/04/2024 7:09 AM EDT I have reviewed the patients controlled substance dispensing history in the Prescription Drug Monitoring Program in compliance with the [facility] regulations before prescribing a controlled substance. PDMP checked on 02/04/2024. Pending Prescriptions: Disp Refills traMADol HCl ER 200 MG Oral Tablet Extend*30 Tab*0 Sig: Take 1 Tablet by mouth in the morning. Last Visit: 01/01/2023 (in office), 01/27/2024 (telemedicine) Next Visit: 03/24/2024 Date medication was last filled: 01/01/24 Date medication is due for refill: 01/30/24 Pharmacy: [facility] [address] [place] [address] CAMRYN UREÑA Is this request for a controlled substance? Yes and Urine Drug Screen Not completed Toxicology results: No results found. However, due to the size of the patient record, not all encounters were searched.Please check Results Review for a complete set of results. Please approve if appropriate. Thank you, Ericka Squires, PharmD Clinical Pharmacist [facility] ([facility]) [phone] 02/04/2024, 7:09 AM documented in this encounter Plan of Treatment Upcoming Encounters Date Type Department Care Team (Late st Contact Info) Description 02/10/2024 6:30 AM EDT 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 [facility], Ruddy Munoz [address] [place] [address] [place] [address] [facility], [place] [address] [address] [facility] [place] [address] 03/24/2024 3:40 PM EDT Telemedicine [facility] [address] [place] [facility] [place] [address] Jessica Regan MD [address] [place] [address] Health Maintenance Due Date Last Done [...] Additional history exists COVID-19 Vaccine ( - 2022- season) 2023 GFR 05/28/2024 05/28/2023, [...] medications documented in this encounter Care Teams Flight Data Technician Relationship Specialty Start Date End Date Jessica Regan MD [address] [place] [address] PCP - General 03/06/06 documented as of this encounter
--- OUTSIDE RECORDS SUMMARY | 2024-02-24 22:43 | External Medical Summary | Summary of Care ---
Author Name Unknown Organization [facility] Address [address] [place] [address] Phone [phone] Care Team Providers Care Pattern Data Operator Name Role Phone Jamey Koch MD Primary Care Provider +1- [phone] Reason for Visit * Reason Comments Dosage Adjustment Via Phone (anticoag in) Encounter Details Date Type Department Care Team (Latest Contact Info) Description 01/24/2024 6:15 PM EDT 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 Pharmacy Call Center [address] [facility] [place] [address] [facility] [address] [facility] [place] [address] Longstanding persistent atrial fibrillation (HCC)* Allergies No known active allergiesdocumented as of this encounter (statuses as of 01/24/2024) Medications Medication Sig Dispensed Refills Start Date End Date Status ASPIRIN 81 MG PO CHEW One pill by mouth once a day with food 100 Tab 5 0 Active Warfarin Sodium 7.5 MG Oral Tablet (Coumadin)Indicatio ns: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,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 use of 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 therapy TAKE ONE-HALF [...] as of this encounter (statuses as of 01/24/2024) Active Problems Problem Noted Date Diagnosed Date [...] -- AHI 30.8, CPAP 8 cwp 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, [place] Atrial fibrillation 11/03/2012 Stasis dermatitis 03/03/2012 Dyslipidemia, goal LDL below 70 01/10/2012 documented as of this encounter (statuses as of 01/24/2024) Resolved Problems Problem Noted Date Diagnosed Date [...] as of this encounter (statuses as of 01/24/2024) Immunizations Name Administration Dates Next Due Hepatitis [...] of this encounter Progress Notes * Sanjay Loepz, middleware architect - 01/24/2024 1:48 PM EDT Contacts Type Contact Phone/Fax 01/24/2024 01:41 PM EDT Phone (Outgoing) Candido Curry (Self) [phone] (M) Left Message Subjective PT/INR results, Coumadin dose instructions, and next PT/INR date communicated as noted by Pharmacist: Yes CHERYLE Davis Tech 01/24/2024, 1:48 PM * Lakeshia Arevalo [facility] - 01/24/2024 1:16 PM EDT Images from the original note were not included. Coumadin Clinic (region specific) Objective Current Warfarin Dose As of 01/24/2024 Warfarin maintenance plan: 5 mg (5 mg x 1) every day INR Result As of 01/24/2024 INR goal: 2.0-3.0 INR used for dosin.3 (01/24/2024) Assessment & Plan Warfarin Plan As of 01/24/2024 Full warfarin instructions: 01/23: Hold; Otherwise 2.5 mg every Mon; 5 mg all other days Next INR check: 02/07/2024 Repeat PT/INR in 2 week(s) Weekly dose: decreased Additional Dosing Information: Description Home riveting machine operator to contact patient with dose instructions as noted. Lakeshia Arevalo [facility] 01/24/2024, 1:16 PM Electronically signed by Lakeshia Arevalo [facility] at 01/24/2024 1:48 PM EDT documented in this encounter Plan of Treatment Upcoming Encounters Date Type Department Care Team (Late st Contact Info) Description 02/10/2024 6:30 AM EDT 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 Pharmacy Call Center [address] [place] [address] [facility] [address] [place] [address] 03/24/2024 3:40 PM EDT Telemedicine [facility] [address] [place] [address] Jamey Koch MD [address] [place] [address] Health Maintenance Due Date Last Done Comments [...] Date/Time Associated Diagnosis Comments OUTSIDE LAB-PT/INR Routine 01/24/2024 documented in this encounter Results * OUTSIDE LAB-PT/INR (01/24/2024) INR-OUTSIDE LAB 3.3 01/24/2024 History Per Patient LABORATORY documented in this encounter Visit Diagnoses Diagnosis Longstanding persistent atrial fibrillation (HCC)- Primary documented in this encounter Care Teams Pattern Data Operator Relationship Specialty Start Date End Date Jamey Koch MD [address] [place], [place] [id number] PCP - General 03/06/06 documented as of this encounter
--- OUTSIDE RECORDS SUMMARY | 2024-02-24 22:43 | External Medical Summary | Summary of Care ---
Author Name Unknown Organization [facility] Address [address] [place] [address] Phone [phone] Care Team Providers Care Hcc Coders Name Role Phone Jessica Regan MD Primary Care Provider +1- [phone] Reason for Visit * Reason Comments eRx-Medication Refill Encounter Details Date Type Department Care Team (Late st Contact Info) Description 01/12/2024 Refill [facility] [address] [place] [address] Jessica Regan MD [address] [place] [address] Allergies No known active allergiesdocumented as of [...] mouth daily as needed. For edema Active Omeprazole 40 MG Oral Capsule Delayed Release (PriLOSEC)Indicati ons:Type 2 diabetes mellitus with hemoglobin A1c goal of less than 7.0% ([facility]) TAKE 1 CAPSULE BY MOUTH ONCE DAILY 1 HOUR BEFORE BREAKFAST 90 Capsule 3 01/02/20 23 Active Ondansetron 4 MG Oral Tablet Disintegrating [...] 2 days 30 Tablet 12/31/19 24 Active Fluticasone Propionate HFA 44 MCG/ACT Inhalation Aerosol Inhale 2 Puffs by mouth in the morning and 2 Puffs before bedtime. Do all this for 14 days. 10 g 12/31/19 24 024 Active traMADol HCl ER 200 MG Oral [...] MORNING 30 Tablet 1 01/13/20 24 Active Allopurinol 100 MG Oral Tablet (Zyloprim) Take 1 Tablet by mouth in the morning. 90 Tablet 3 01/02/20 23 024 Discontinued documented as [...] -- AHI 30.8, CPAP 8 cwp DME: I&C TECHNICIAN, [place] Atrial fibrillation 11/03/2012 Stasis dermatitis 03/03/2012 Dyslipidemia, [...] encounter Miscellaneous Notes * Telephone Encounter - Zaida Rankin, [facility] - 01/13/2024 5:36 PM EDT Signed Prescriptions: Disp Refills Allopurinol 100 MG Oral Tablet (Zyloprim) 30 Tab*1 Sig: TAKE 1 TABLET BY MOUTH IN THE MORNINGAuthorizing Provider: JESSICA REGAN User: ZAIDA RANKIN documented in this encounter Plan of Treatment Upcoming Encounters Date Type Department Care Team (Late st Contact Info) Description 01/23/2024 6:30 AM EDT 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 Pharmacy Call Center [address] [facility] [place] [address] [facility] [address] [facility] [place] [address] 03/24/2024 3:40 PM EDT Telemedicine [facility] [address] [place] [address] Jessica Regan MD [address] [place], [place] [phone] Health Maintenance Due Date Last Done Comments [...] 12/22/2022, Additional history exists Cologuard 01/02/2025 01/02/2022, 0 10/2021, 12/26/2021 Colorectal Cancer Screening 01/02/2025 DTaP,Tdap,and [...] filedocumented as of this encounter Care Teams Hcc Coders Relationship Specialty Start Date End Date [facility] [address] [facility] [address] PCP - General 03/06/06 documented as of this encounter
--- OUTSIDE RECORDS SUMMARY | 2024-02-24 22:43 | External Medical Summary | Summary of Care ---
Author Name Unknown Organization [facility] Address [address] [place] [address] Phone [phone] Care Team Providers Care Medical Equipment Repairer Name Role Phone Jamey Koch MD Primary Care Provider +1- [phone] Encounter Details Date Type Department Care Team (Late st Contact Info) Description 01/24/2024 Result Scan Unspecified Department <No scans attached> Allergies No known active allergiesdocumented as of this encounter (statuses as of 01/24/2024) Medications Medication Sig Dispensed Refills Start Date End Date Status ASPIRIN 81 MG PO CHEW One pill by mouth once a day with food 100 Tab 5 0 Active Warfarin Sodium 7.5 MG Oral Tablet (Coumadin)Indicatio ns: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,[facility] current use of 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 therapy TAKE ONE-HALF [...] -- AHI 30.8, CPAP 8 cwp 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..] Date/Time Associated Diagnosis Comments OUTSIDE LAB RESULTS 01/24/2024 documented in this encounter Results * OUTSIDE LAB RESULTS (01/24/2024) 01/24/2024 No Physician Data Unknown LABORATORY documented in this encounter Care Teams Medical Equipment Repairer Relationship Specialty Start Date End Date Jamey Koch MD [address] [place] [address] PCP - General 03/06/06 documented as of this encounter
--- OUTSIDE RECORDS SUMMARY | 2024-02-24 22:43 | External Medical Summary | Summary of Care ---
Author Name Unknown Organization [facility] Address [address] [place] [address] Phone [phone] Care Team Providers Care Core Assembly Supervisor Name Role Phone Jessica eRgan MD Primary Care Provider +1- [phone] Reason for Visit * Reason Comments eRx-Medication Refill Encounter Details Date Type Department Care Team (Late st Contact Info) Description 01/07/2024 Refill [facility] [address] [place] [address] Jessica Regan MD [address] [place] [address] Allergies No known active allergiesdocumented as of this encounter (statuses as of 01/08/2024) Medications Medication Sig Dispensed Refills Start Date End Date Status ASPIRIN 81 MG PO CHEW One pill by mouth once a day with food 100 Tab 5 08/03/20 10 Active Warfarin Sodium 7.5 MG Oral Tablet (Coumadin)Indicati ons: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,group home current use of 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 therapy TAKE ONE-HALF [...] the morning. 90 Tablet 3 01/02/20 23 Active Omeprazole 40 MG Oral Capsule Delayed Release (PriLOSEC)Indicati ons:Type 2 diabetes mellitus with hemoglobin A1c goal of less than 7.0% ([facility]) TAKE 1 CAPSULE BY MOUTH ONCE DAILY [...] needed for Pain, Mild. 30 Tablet 0 02/06/20 23 Active Spironolactone 25 MG Oral Tablet (Aldactone)Indicat ions:Acute on chronic heart failure with preserved ejection fraction (HCC) Take 0.5 Tablets by mouth in the morning. 45 Tablet 3 02/20/20 23 Active Metoprolol Succinate 50 MG Oral Capsule ER 24 Hour Sprinkle Take 50 mg by mouth in the morning and 50 mg in the evening. 180 Capsule 0 11/28/19 24 Active Atorvastatin Calcium 40 MG Oral Tablet (Lipitor)Indicatio ns:Dyslipidemia, goal LDL below 100 TAKE 1 TABLET BY MOUTH ONCE DAILY IN THE EVENING 90 Tablet 3 12/12/19 24 Active Azithromycin 250 MG Oral Tablet (Zithromax Z-Malick)Indications: Bronchitis Take two tablets by mouth on first day, then 1 tablet daily until gone 6 Tablet 0 12/23/19 24 Active Benzonatate 100 MG Oral [...] mouth in the morning. 30 Tablet 0 12/31/19 24 Active predniSONE 10 MG Oral Tablet (Deltasone)Indicat ions:Bronchitis Take 5 tabs for 2 days, 4 tabs for 2 days, 3 tabs for 2 days, 2 tabs for 2 days 1 tab for 2 days 30 Tablet 0 12/31/19 24 Active Doxycycline Hyclate 100 MG Oral Capsule Take 1 Capsule by mouth in the morning and 1 Capsule before bedtime. Do all this for 10 days. Until gone.. 20 Capsule 0 12/31/19 24 024 Active Fluticasone Propionate HFA 44 MCG/ACT Inhalation Aerosol Inhale 2 Puffs by mouth in the morning and 2 Puffs before bedtime. Do all this for 14 days. 10 g 0 12/31/19 24 024 Active traMADol HCl ER 200 MG Oral Tablet Extended Release 24 Hour (Ultram ER)Indications:Con trolled substance agreement signed Take 1 Tablet by mouth in the morning. 30 Tablet 0 01/01/20 24 Active Warfarin Sodium 5 MG Oral Tablet (Coumadin) Take 2 tablets by mouth on Saturday and 1 tablet by mouth all other days as directed by anticoagulation clinic. 35 Tablet 2 01/08/20 24 Active Warfarin Sodium 5 MG Oral Tablet (Coumadin) Take 1 Tablet by mouth every evening. 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, [place] Atrial fibrillation 11/03/2012 Stasis dermatitis 03/03/2012 Dyslipidemia, goal LDL below 70 01/10/2012 documented as of this encounter (statuses as of 01/08/2024) Resolved Problems Problem Noted Date Diagnosed Date [...] as of this encounter (statuses as of 01/08/2024) Immunizations Name Administration Dates Next Due Hepatitis [...] encounter Miscellaneous Notes * Telephone Encounter - Serg Polanco RPh - 01/08/2024 11:56 AM EDTSigned Prescriptions: Disp Refills Warfarin Sodium 5 MG Oral Tablet (Coumadin)35 Tab*2 Sig: Take 2 tablets by mouth on Saturday and 1 tablet by mouth all other days as directed by anticoagulation clinic.Authorizing Provider: JESSICA REGAN User: SERG POLANCO * Telephone Encounter - Serg Polanco RPh - 01/08/2024 11:51 AM EDT Assessment & Plan Warfarin Plan As of 12/30/2023 Full warfarin instructions: 12/29: Hold; Otherwise 10 mg every Sat; 5 mg all other days Next INR check: 01/11/2024 Serg Singh, PharmD Clinical Pharmacist [facility] ([facility]) (formerly Telepharmacy) [phone] 01/08/2024 11:55 AM documented in this encounter Plan of Treatment Upcoming Encounters Date Type Department Care Team (Late st Contact Info) Description 01/13/2024 6:30 AM EDT 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 Pharmacy Call Center [address] [facility] [place] [address] [facility], [facility] [address] [facility] [place] [address] 03/24/2024 3:40 PM EDT Telemedicine Family [facility], [place] [address] [place] [facility] [place] [address] Jessica Regan MD [address] [facility] [place] [id number] Health Maintenance Due Date Last Done Comments [...] filedocumented as of this encounter Care Teams Core Assembly Supervisor Relationship Specialty Start Date End Date Jessica Regan MD [address] [place] [address] PCP - General 03/06/06 documented as of this encounter
--- OUTSIDE RECORDS SUMMARY | 2024-02-24 22:44 | External Medical Summary | Summary of Care ---
Author Name Unknown Organization [facility] Address [address] [place] [address] Phone [phone] Care Team Providers Care Aircraft Dispatcher Name Role Phone Jamey Koch MD Primary Care Provider +1- [phone] Reason for Visit * Reason Comments eRx-Medication Refill Encounter Details Date Type Department Care Team (Late st Contact Info) Description 12/11/2023 Refill Cardiology, [facility] [address] [place] [address] Sylvia Waters PA-C [address] [place] [address] Dyslipidemia, goal LDL below 100 Allergies No known active allergiesdocumented as of this encounter (statuses as of 12/12/2023) Medications Medication Sig Dispensed Refills Start Date End Date Status ASPIRIN 81 MG PO CHEW One pill by mouth once a day with food 100 Tab 5 08/03/20 10 Active Zoster Vac Recomb Adjuvanted 50 MCG/0.5ML Intramuscular Suspension Reconstituted (Shingrix)Indicati ons:Need for shingles vaccine Inject 0.5 mL into a large muscle now and repeat dose in 60 to 180 days 1 Each 1 11/08/19 22 Active Additional Information Patient not taking.Reported on 01/01/2023 Warfarin Sodium 7.5 MG Oral Tablet (Coumadin)Indicati ons: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,residential current use of 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 therapy TAKE ONE-HALF [...] hemoglobin A1c goal of less than 7.0% ([facility]) TAKE 1 CAPSULE BY MOUTH ONCE DAILY 1 HOUR BEFORE BREAKFAST 90 Capsule 3 01/02/20 23 Active Warfarin Sodium 5 MG Oral Tablet (Coumadin) Take 1 Tablet by mouth every evening. And adjust as directed by the anticoagulation clinic 90 Tablet 3 01/02/20 23 Active Ondansetron 4 MG [...] morning. 45 Tablet 3 02/20/20 23 Active Albuterol Sulfate HFA 108 (90 Base) MCG/ACT Inhalation Aerosol SolutionIndication s:Cough,PND (post-nasal drip) INHALE 2 PUFFS BY MOUTH 4 TIMES DAILY NEEDED FOR SHORTNESS OF BREATH AND COUGH 54 g 1 10/28/19 24 Active traMADol HCl ER 200 MG Oral Tablet Extended Release 24 Hour (Ultram ER)Indications:Con trolled substance agreement signed Take 1 Tablet by mouth in the morning. 30 Tablet 0 11/29/19 24 Active Metoprolol Succinate 50 MG Oral Capsule ER 24 Hour Sprinkle Take 50 mg by mouth in the morning and 50 mg in the evening. 180 Capsule 0 11/28/19 24 Active Atorvastatin Calcium 40 MG Oral Tablet (Lipitor)Indicatio ns:Dyslipidemia, goal LDL below 100 TAKE 1 TABLET BY MOUTH ONCE DAILY IN THE EVENING 90 Tablet 3 12/12/19 24 Active Atorvastatin Calcium 40 MG Oral Tablet (Lipitor)Indicatio ns:Dyslipidemia, goal LDL below 100 Take 1 Tablet by mouth every evening. 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, [place] Atrial fibrillation 11/03/2012 Stasis dermatitis 03/03/2012 Dyslipidemia, goal LDL below 70 01/10/2012 documented as of this encounter (statuses as of 12/12/2023) Resolved Problems Problem Noted Date Diagnosed Date [...] as of this encounter (statuses as of 12/12/2023) Immunizations Name Administration Dates Next Due Hepatitis [...] encounter Miscellaneous Notes * Telephone Encounter - Linda Michelle CRNP - 12/12/2023 8:48 AM EDT Signed Prescriptions: Disp Refills Atorvastatin Calcium 40 MG Oral Tablet (Li*90 Tab*3 Sig: TAKE 1 TABLET BY MOUTH ONCE DAILY IN THE EVENING Authorizing Provider: LINDA MICHELLE * Telephone Encounter - Ana Schafer CMA - 12/12/2023 8:28 AM EDTPending Prescriptions: Disp Refills Atorvastatin Calcium 40 MG Oral Tablet (Li*90 Tab*3 Sig: TAKE 1 TABLET BY MOUTH ONCE DAILY IN THE EVENING * Telephone Encounter - Ana Schafer CMA - 12/12/2023 8:28 AM EDT Did you pend patient's preferred pharmacy and medication before forwarding?yes Pharmacy: [facility] [address] [place] [address] Pending Prescriptions: Disp Refills Atorvastatin Calcium 40 MG Oral Tablet (L*90 Tab*3 Sig: TAKE 1 TABLET BY MOUTH ONCE DAILY IN THE EVENING Last Visit: 05/28/2023 (in office), Visit date not found (telemedicine) Next Visit: Visit date not found If no future appointments scheduled, and last appointment is greater than a year ago, please schedule patient for a follow-up appointment Last date the medication was ordered: 10-29-2022 Is this request for a controlled substance?No Urine Drug Screen:No results found. However, due to the size of the patient record, not all encounters were searched. Please check Results Review for a complete set of results. Patient Phone Numbers Labs: Lab Results Component Value Date/Time CREAT 1.3 (H) 05/28/2023 09:07 AM CREAT 1.4 (H) 09/23/2020 11:08 AM POTASSIUM 5.1 05/28/2023 09:07 AM POTASSIUM 4.9 09/23/2020 11:08 AM TSH 3.11 10/13/2013 04:21 PM LDLCALC 106 09/23/2020 11:08 AM LDLDIRECT 111 05/28/2023 09:07 AM LDLDIRECT NOT APPLICABLE 09/23/2020 11:08 AM LDLDIRECT 101 05/16/2017 04:17 PM ALT 21 05/28/2023 09:07 AM ALT 42 09/23/2020 11:08 AM HGBA1C 6.3 (H) 03/06/2022 08:09 AM HGBA1C 5.8 (A) 12/18/2017 12:00 AM HGBA1C 5.4 09/08/2016 09:39 AM documented in this encounter Plan of Treatment Upcoming Encounters Date Type Department Care Team (Late st Contact Info) Description 12/16/2023 6:30 AM EDT 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 Pharmacy Call Center [address] [facility] [place] [address] [facility] [address] [facility] [place] [address] Health Maintenance Due Date Last Done Comments HIV Screening 1977 Hepatitis C Screening 02/23/1980 Colonoscopy 2007 Fecal Occult Blood Test 2007 Sigmoidoscopy 2007 Zoster Vaccines (1 of 2) 02/23/2012 Pneumococcal Vaccine: Pediatrics (0 to 5 Years) and At-Risk Patients (6 to 64 Years) (2 of 2 - PCV) 06/13/2013 06/13/2012 Diabetic Foot Exam 08/10/2016 08/10/2015, 1 09/12/2012, 10/03/2012, Additional history exists Albumin/Creatinine Ratio 12/18/20182 018, 08/10/2015, 07/30/2014, Additional history exists Depression [...] as of this encounter Visit Diagnoses Diagnosis Dyslipidemia, goal LDL below 100 Other and unspecified hyperlipidemia documented in this encounter Care Teams Aircraft Dispatcher Relationship Specialty Start Date End Date Jamey Koch MD [address] [place] [address] PCP - General 03/06/06 documented as of this encounter
--- OUTSIDE RECORDS SUMMARY | 2024-02-24 22:44 | External Medical Summary | Summary of Care ---
Author Name Unknown Organization [facility] Address [address] [place] [address] Phone [phone] Care Team Providers Care Wire Machine Cutter Name Role Phone Jamey Koch MD Primary Care Provider +1- [phone] Encounter Details Date Type Department Care Team (Late st Contact Info) Description 12/31/2023 9:40 AM EDT Telemedicine [facility] [address] [place] [address] Naomy Albarran PA-C [address] [place] [address] Bronchitis* Allergies No known active allergiesdocumented as of this encounter (statuses as of 12/31/2023) Medications Medication Sig Dispensed Refills Start Date End Date Status ASPIRIN 81 MG PO CHEW One pill by mouth once a day with food 100 Tab 5 0 Active Warfarin Sodium 7.5 MG Oral Tablet (Coumadin)Indicati ons: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,detention current use of 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 therapy TAKE ONE-HALF [...] hemoglobin A1c goal of less than 7.0% ([facility]) TAKE 1 CAPSULE BY MOUTH ONCE DAILY 1 HOUR BEFORE BREAKFAST 90 Capsule 3 3 Active Warfarin Sodium 5 MG Oral Tablet (Coumadin) Take 1 Tablet by mouth every evening. And adjust as directed by the anticoagulation clinic 90 Tablet 3 3 Active Ondansetron 4 MG Oral [...] the morning. 45 Tablet 3 3 Active traMADol HCl ER 200 MG Oral Tablet Extended Release 24 Hour (Ultram ER)Indications:Con trolled substance agreement signed Take 1 Tablet by mouth in the morning. 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 History of Present Illness Candido Curry is a 63 year old male that presents for No chief complaint on file. Due to COVID 19 pandemic, this visit was done via video. Patient is established with the practice. Last face to face visit was 01/01/2023. Call start time: 945 Patient location: HOME. I was in a hospital or clinic location. After connecting through televideo,patient was verified with two unique identifiers. Patient (or authorized legal personal banking representative) was then informed that this was a Telemedicine visit and being conducted confidentially over secure lines. Methods to assure confidentiality were taken. Patient acknowledged consent and understanding of pr ivacy and security of the Telemedicine visit. The patient agreed to participate. Has fmla forms he needs done for Seen last week via telemed for initial uri sx Treated with zpac and pred Seems to clear a little The next thing he knows he has another attack and is coughing up phlegm Comes up easily at times Stuck at times No fever Wheeze Has albuterol inhaler Does not have a neb machine took one tab of steroid - he is on his last one Slight rhinitis Sleeping good other than when he is up - then the cough starts. Physical Exam There were no vitals filed for this visit. BP Readings from Last 3 Encounters: 05/28/23 106/74 01/09/23 104/60 01/01/23 130/68 Wt Readings from Last 3 Encounters: 05/28/23 (!) 174.7 kg (385 lb 4 oz) 10/16/21 (!) 177.4 kg (391 lb) 10/12/20 (!) 200 kg (441 lb) BMI Readings from Last 3 Encounters: 05/28/23 52.25 kg/m 10/16/21 53.03 kg/m 10/12/20 59.81 kg/m Ht Readings from Last 3 Encounters: 10/12/20 1.829 m (6') 08/14/19 1.829 m (6') 07/01/17 1.829 m (6') Assessment and Plan Bronchitis - predniSONE 10 MG Oral Tablet (Deltasone); Take 5 tabs for 2 days, 4 tabs for 2 days, 3 tabs for 2days, 2 tabs for 2 days 1 tab for 2 days - Montelukast Sodium 10 MG Oral Tablet (Singulair); Take 1 Tablet by mouth in the morning. - Doxycycline Hyclate 100 MG Oral Capsule; Take 1 Capsule by mouth in the morning and 1 Capsule before bedtime. Do all this for 10 days. Until gone.. - Fluticasone Propionate HFA 44 MCG/ACT Inhalation Aerosol; Inhale 2 Puffs by mouth in the morning and 2 Puffs before bedtime. Do all this for 14 days. Consider getting patient a neb Cxr if worsens Discussed risk and benefits of short term prednisone therapy. Pt aware that there are side affects such as increased energy, aggression and mood swings, swelling, and increase in appetite. Agrees that this is the best course and is what is needed to deal with the issues. Wrap-Up Fmla done Time: I spent a total of 10-19 minutes (exact time 10 mins) on the date of service in preparation, delivery, and documentation of the care provided to Candido Curry excluding any time spent in the performance of separately billed services. Naomy Albarran PA-C 12/31/2023 9:55 AM documented in this encounter Plan of Treatment Upcoming Encounters Date Type Department Care Team (Late st Contact Info) Description 01/13/2024 6:30 AM EDT 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 Pharmacy Call Center [facility] [address] [facility] [place] [address] [facility] [address] [facility] [place] [address] 03/24/2024 3:40 PM EDT Telemedicine [address] [place] [address] Jamey Koch MD [address] [facility] [id number] Health Maintenance Due Date Last Done Comments [...] as of this encounter Visit Diagnoses Diagnosis Bronchitis- Primary Bronchitis, not specified as acute or chronic documented in this encounter Care Teams Wire Machine Cutter Relationship Specialty Start Date End Date Jamey Koch MD [address] [place] [address] PCP - General 03/06/06 documented as of this encounter
--- OUTSIDE RECORDS SUMMARY | 2024-02-24 22:44 | External Medical Summary | Summary of Care ---
Author Name Unknown Organization [facility] Address [address] [place] [address] Phone [phone] Care Team Providers Care Meat Supervisor Name Role Phone Jamey Koch MD Primary Care Provider +1- [phone] Reason for Visit * Reason Comments eRx-Medication Refill Encounter Details Date Type Department Care Team (Late st Contact Info) Description 12/31/2023 Refill [facility] [address] [place] [address] Jamey Koch MD [address] [place] [address] Controlled substance agreement signed Allergies No known active allergiesdocumented as of this encounter (statuses as of 01/01/2024) Medications Medication Sig Dispensed Refills Start Date End Date Status ASPIRIN 81 MG PO CHEW One pill by mouth once a day with food 100 Tab 5 0 Active Warfarin Sodium 7.5 MG Oral Tablet (Coumadin)Indicatio ns: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,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 TAKE ONE-HALF [...] goal of less than 7.0% ([facility]) TAKE 1 CAPSULE BY MOUTH ONCE DAILY [...] 10 g 0 4 01/14/20 24 Active documented as of this encounter (statuses as of 01/01/2024) Active Problems Problem Noted Date Diagnosed Date [...] -- AHI 30.8, CPAP 8 cwp 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, [place] Atrial fibrillation 11/03/2012 Stasis dermatitis 03/03/2012 Dyslipidemia, goal LDL below 70 01/10/2012 documented as of this encounter (statuses as of 01/01/2024) Resolved Problems Problem Noted Date Diagnosed Date [...] as of this encounter (statuses as of 01/01/2024) Immunizations Name Administration Dates Next Due Hepatitis [...] encounter Miscellaneous Notes * Telephone Encounter - Fletcher Hansen, [facility] - 01/01/2024 11:54 AM EDT Refused Prescriptions: Disp Refills traMADol HCl ER 200 MG Oral Tablet Extende*30 Tab*0 Sig: TAKE 1TABLET BY MOUTH IN THE MORNINGRefused By: FLETCHER HANSENReason for Refusal: Duplicate Request-- documented in this encounter Plan of Treatment Upcoming Encounters Date Type Department Care Team (Late st Contact Info) Description 01/13/2024 6:30 AM EDT 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 Pharmacy Call Center [address] [place] [address] [facility] [address] [place] [address] 03/24/2024 3:40 PM EDT Telemedicine [facility] [address] [place] [address] Jamey Koch MD [address] [place] [address] Health Maintenance Due Date Last [...] medications documented in this encounter Care Teams Meat Supervisor Relationship Specialty Start Date End Date Jamey Koch MD [address] [place] [address] PCP - General 03/06/06 documented as of this encounter
--- OUTSIDE RECORDS SUMMARY | 2024-02-24 22:44 | External Medical Summary | Summary of Care ---
Author Name Unknown Organization [facility] Address [address] [place] [address] Phone [phone] Care Team Providers Care Field Account Director Name Role Phone Jamey Koch MD Primary Care Provider +1- [phone] Encounter Details Date Type Department Care Team (Late st Contact Info) Description 12/30/2023 Telephone [facility] [address] [place] [address] Jamey Koch MD [address] [place] [address] Allergies No known active allergiesdocumented as of this encounter (statuses as of 01/06/2024) Medications Medication Sig Dispensed Refills Start Date End Date Status ASPIRIN 81 MG PO CHEW One pill by mouth once a day with food 100 Tab 5 0 Active Warfarin Sodium 7.5 MG Oral Tablet (Coumadin)Indicati ons: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,nursing home current use of 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 therapy TAKE [...] AND COUGH 54 g 1 4 Active traMADol HCl ER 200 MG Oral Tablet Extended Release 24 Hour (Ultram ER)Indications:Con trolled substance agreement signed Take 1 Tablet by mouth in the morning. 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 Will forward to her. * Telephone Encounter - Iraida Bradford OSA - 12/30/2023 9:54 AM EDT 5/6/24 Pts dropped off paperwork for pt that needs to be completed for FMLA. When paperwork is completed, please call [phone] for pt to p/u. Paperwork placed in provider's mail bin. documented in this encounter Plan of Treatment Upcoming Encounters Date Type Department Care Team (Late st Contact Info) Description 01/13/2024 6:30 AM EDT 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 Pharmacy Call Center [facility] [address] [place] [address] [facility] [address] [facility] [place] [address] 03/24/2024 3:40 PM EDT Telemedicine [facility] [address] [place] [address] Jamey Koch MD [address] [place] [address] Health Maintenance Due Date Last [...] 12/22/2022, Additional history exists Cologuard 01/02/2025 01/02/2022, 050 10/2021, 12/26/2021 Colorectal Cancer Screening 01/02/2025 DTaP,Tdap,and [...] filedocumented as of this encounter Care Teams Field Account Director Relationship Specialty Start Date End Date Jamey Koch MD [address] [place] [address] PCP - General 03/06/06 documented as of this encounter
--- OUTSIDE RECORDS SUMMARY | 2024-02-24 22:44 | External Medical Summary | Summary of Care ---
Author Name Unknown Organization [facility] Address [address] [place] [address] Phone [phone] Care Team Providers Care Manager Endoscopy Name Role Phone Jamey Regan MD Primary Care Provider +1- [phone] Reason for Referral * Medication Prior Authorization - Closed Specialty Diagnoses / Procedures Referred By Shahbaz t Referred To Contact Diagnoses Controlled substance agreement signed Jamey Regan MD [address] [place] [address] Referral ID Status Reason Start Date Expiration Date Visits Re quested Visits Authorized [id number] Closed [phone] Reason for Visit * Reason Onset Date Comments Medication Refill 12/31/2023 Encounter Details Date Type Department Care Team (Late st Contact Info) Description 12/31/2023 Refill [facility] [address] [place] [phone] Jamey Regan MD [address] [place] [address] Controlled substance agreement signed Allergies No known active allergiesdocumented as of this encounter (statuses as of 01/01/2024) Medications Medication Sig Dispensed Refills Start Date End Date Status ASPIRIN 81 MG PO CHEW One pill by mouth once a day with food 100 Tab 5 0 Active Warfarin Sodium 7.5 MG Oral Tablet (Coumadin)Indicati ons: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,jail current use of 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 therapy TAKE ONE-HALF [...] the morning. 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 Electronically signed by Fletcher Almodovar [facility] at 01/01/2024 12:00 PM EDT * Telephone Encounter - Fletcher Almodovar [facility] - 01/01/2024 11:53 AM EDT I have reviewed the patients controlled substance dispensing history in the Prescription Drug Monitoring Program in compliance with the [facility] regulations before prescribing a controlled substance. PDMP checked on 01/01/2024. Pending Prescriptions: Disp Refills traMADol HCl ER 200 MG Oral Tablet Extend*30 Tab*0 Sig: Take 1 Tablet by mouth in the morning. Last Visit: 01/01/2023 (in office), 12/31/2023 (telemedicine) Next Visit: 03/24/2024 Date medication was last filled: 11/29/2023 Date medication is due for refill: 12/28/2023 Pharmacy: [facility] Is this request for a controlled substance? Yes and Urine Drug Screen Not completed Toxicology results: No results found. However, due to the size of the patient record, not all encounters were searched.Please check Results Review for a complete set of results. Please approve if appropriate. Thanks, Fletcher Almodovar Pharm.D. Clinical Pharmacist [facility] ([facility])(Formerly Telepharmacy) [phone] 01/01/2024, 11:53 AM Electronically signed by Fletcher Almodovar [facility] at 01/01/2024 11:54 AM EDT documented in this encounter Plan of Treatment Upcoming Encounters Date Type Department Care Team (Late st Contact Info) Description 01/13/2024 6:30 AM EDT 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 Pharmacy Call Center [address] [facility] [place] [address] [facility] [address] [facility] [place] [address] 03/24/2024 3:40 PM EDT Telemedicine [facility] [address] [place] [phone] Jamey Regan MD [address], [place] [phone] Health Maintenance Due Date Last Done Comments [...] medications documented in this encounter Care Teams Manager Endoscopy Relationship Specialty Start Date End Date Jamey Regan MD [address] [facility] [place] [address] PCP - General 03/06/06 documented as of this encounter
--- OUTSIDE RECORDS SUMMARY | 2024-02-24 22:44 | External Medical Summary | Summary of Care ---
Author Name Unknown Organization [facility] Address [address] [place] [address] Phone [phone] Care Team Providers Care Assistant Farm Operations Manager Name Role Phone Jamey Koch MD Primary Care Provider +1- [phone] Encounter Details Date Type Department Care Team (Late st Contact Info) Description 12/30/2023 Telephone [facility] [address] [place] [address] Jamey Koch MD [address] [place] [address] Allergies No known active allergiesdocumented as of this encounter (statuses as of 12/30/2023) Medications Medication Sig Dispensed Refills Start Date End Date Status ASPIRIN 81 MG PO CHEW One pill by mouth once a day with food 100 Tab 5 0 Active Warfarin Sodium 7.5 MG Oral Tablet (Coumadin)Indicatio ns: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,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 Do not cut, crush, or chew. 90 Capsule 1 4 Active Albuterol Sulfate HFA 108 (90 Base) MCG/ACT Inhalation Aerosol SolutionIndications :Cough,PND (post-nasal drip) INHALE 2 PUFFS BY MOUTH 4 TIMES DAILY NEEDED FOR SHORTNESS OF BREATH AND COUGH 54 g 1 4 Active documented as of this encounter (statuses as of 12/30/2023) Active Problems Problem Noted Date Diagnosed Date [...] -- AHI 30.8, CPAP 8 cwp DME: GREENS PICKER, [place] Atrial fibrillation 11/03/2012 Stasis dermatitis 03/03/2012 Dyslipidemia, goal LDL below 70 01/10/2012 documented as of this encounter (statuses as of 12/30/2023) Resolved Problems Problem Noted Date Diagnosed Date [...] as of this encounter (statuses as of 12/30/2023) Immunizations Name Administration Dates Next Due Hepatitis [...] encounter Miscellaneous Notes * Telephone Encounter - Iraida Bradford OSA - 12/30/2023 9:54 AM EDT 12/30/23 Pts dropped off paperwork for pt that needs to be completed for FMLA. When paperwork is completed, please call [phone] for pt to p/u. Paperwork placed in provider's mail bin. documented in this encounter Plan of Treatment Upcoming Encounters Date Type Department Care Team (Late st Contact Info) Description 12/31/2023 9:40 AM EDT Telemedicine [facility] [place] [address] [facility] [phone] Naomy Albarran PA-C [address] [facility] [address] 03/24/2024 3:40 PM EDT [facility] [place] [address] [facility] [phone] Jamey Koch MD [address] [facility] [address] Health Maintenance Due Date Last Done Comments [...] filedocumented as of this encounter Care Teams Assistant Farm Operations Manager Relationship Specialty Start Date End Date Jamey Koch MD [address] [place] [address] PCP - General 03/06/06 documented as of this encounter
--- OUTSIDE RECORDS SUMMARY | 2024-02-24 22:44 | External Medical Summary | Summary of Care ---
Author Name Unknown Organization [facility] Address [address] [place] [address] Phone [phone] Care Team Providers Care Glass Mold Repairer Name Role Phone Jamey Koch MD Primary Care Provider +1- [phone] Reason for Visit * Reason Comments Dosage Adjustment Via Phone (anticoag in) Encounter Details Date Type Department Care Team (Latest Contact Info) Description 12/30/2023 6:30 AM EDT 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 Pharmacy Call Center [address] [place] [address] [facility] [address] [facility] [place] [address] Longstanding persistent atrial fibrillation (HCC)* Allergies No known active allergiesdocumented as of this encounter (statuses as of 12/30/2023) Medications Medication Sig Dispensed Refills Start Date End Date Status ASPIRIN 81 MG PO CHEW One pill by mouth once a day with food 100 Tab 5 0 Active Warfarin Sodium 7.5 MG Oral Tablet (Coumadin)Indicatio ns: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,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 current use of 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 therapy TAKE ONE-HALF [...] A1c goal of less than 7.0% ([facility]) TAKE 1 CAPSULE BY MOUTH ONCE DAILY [...] -- AHI 30.8, CPAP 8 cwp DME: DRYWALL HANGER, [place] Atrial fibrillation 11/03/2012 Stasis dermatitis 03/03/2012 Dyslipidemia, [...] as of this encounter Progress Notes * Amy Almodovar, supervisor frame assembly - 12/30/2023 10:00 AM EDT Contacts Type Contact Phone/Fax 12/30/2023 09:58 AM EDT Phone (Outgoing) Candido Curry (Self) [phone] (M) Left Message Subjective Advised patient to contact 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 Clinic if any unusual bruising or bleeding, recent illness, changes in medication, or questions/concerns. PT/INR results, Coumadin dose instructions, and next PT/INR date communicated as noted by Pharmacist: Yes CHERYLE ROCHA 12/30/2023, 10:00 AM * Ayaka Fox [facility] - 12/30/2023 9:04 AM EDT Coumadin Clinic (region specific) Objective Current Warfarin Dose As of 12/30/2023 Warfarin maintenance plan: 10 mg (5 mg x 2) every Fri; 5 mg (5 mg x 1) all other days INR Result As of 12/30/2023 INR goal: 2.0-3.0 INR used for dosin.2 (12/28/2023) Assessment & Plan Warfarin Plan As of 12/30/2023 Full warfarin instructions: 12/29: Hold; Otherwise 10 mg every Fri; 5 mg all other days Next INR check: 01/11/2024 Repeat PT/INR in 2 week(s) Weekly dose: not changed Additional Dosing Information: Description Home carbon coater machine operator to contact patient with dose instructions as noted. Ayaka Fox RPh 12/30/2023, 9:05 AM documented in this encounter Plan of Treatment Upcoming Encounters Date Type Department Care Team (Late st Contact Info) Description 12/31/2023 9:40 AM EDT [facility] [address] [place] [facility] [place] [address] Naomy Albarran PA-C [address] [place] [facility] [place] [address] 03/24/2024 3:40 PM EDT [facility] [address] [place] [facility] [place] [address] Jamey Koch MD [address] [facility] [place] [phone] Health Maintenance Due Date Last Done Comments [...] Date/Time Associated Diagnosis Comments OUTSIDE LAB-PT/INR Routine 12/28/2023 documented in this encounter Results * OUTSIDE LAB-PT/INR (12/28/2023) INR-OUTSIDE LAB 3.2 12/28/2023 History Per Patient LABORATORY documented in this encounter Visit Diagnoses Diagnosis Longstanding persistent atrial fibrillation (HCC)- Primary documented in this encounter Care Teams Glass Mold Repairer Relationship Specialty Start Date End Date Jamey Koch MD [address] [place] [address] PCP - General 03/06/06 documented as of this encounter
--- OUTSIDE RECORDS SUMMARY | 2024-02-24 22:44 | External Medical Summary | Summary of Care ---
Author Name Unknown Organization [facility] Address [address] [place] [address] Phone [phone] Care Team Providers Care Sports Recruiter Name Role Phone Jamey Koch MD Primary Care Provider +1- [phone] Encounter Details Date Type Department Care Team (Late st Contact Info) Description 12/31/2023 9:40 AM EDT Telemedicine [facility] [address] [place] [address] Naomy Albarran PA-C [address] [place] [address] Bronchitis* Allergies No known active allergiesdocumented as of this encounter (statuses as of 01/02/2024) Medications Medication Sig Dispensed Refills Start Date [...] than 7.0% ([facility]) TAKE 1 CAPSULE BY MOUTH ONCE DAILY [...] as of this encounter (statuses as of 01/02/2024) Active Problems Problem Noted Date Diagnosed Date [...] -- AHI 30.8, CPAP 8 cwp DME: SOFTWARE PRODUCT MANAGER, [place] Atrial fibrillation 11/03/2012 Stasis dermatitis 03/03/2012 Dyslipidemia, goal LDL below 70 01/10/2012 documented as of this encounter (statuses as of 01/02/2024) Resolved Problems Problem Noted Date Diagnosed Date [...] as of this encounter (statuses as of 01/02/2024) Immunizations Name Administration Dates Next Due Hepatitis [...] two unique identifiers. Patient (or authorized legal disability representative) was then informed that this was [...] EDT 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 Pharmacy Call Center [facility] [address] [facility] [place] [address] [facility] [address] [facility] [place] [address] 03/24/2024 3:40 PM EDT Telemedicine [place] [address] [place] [phone] Jamey Koch MD [address] [facility] [place] [phone] Health Maintenance Due Date Last Done Comments [...] chronic documented in this encounter Care Teams Sports Recruiter Relationship Specialty Start Date End Date Jamey Koch MD [address] [place] [address] PCP - General 03/06/06 documented as of this encounter
--- OUTSIDE RECORDS SUMMARY | 2024-02-24 22:44 | External Medical Summary | Summary of Care ---
Author Name Unknown Organization [facility] Address [address] [place] [address] Phone [phone] Care Team Providers Care Color Dipper Name Role Phone Jamey Koch MD Primary Care Provider +1- [phone] Encounter Details Date Type Department Care Team (Late st Contact Info) Description 12/30/2023 Telephone [facility] [address] [place] [address] Jamey Koch MD [address] [place] [address] Allergies No known active allergiesdocumented as of this encounter (statuses as of 12/31/2023) Medications Medication Sig Dispensed Refills Start Date End Date Status ASPIRIN 81 MG PO CHEW One pill by mouth once a day with food 100 Tab 5 0 Active Warfarin Sodium 7.5 MG Oral Tablet (Coumadin)Indicatio ns: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 When paperwork is completed, please call [phone] for pt to p/u. Paperwork placed in provider's mail bin. documented in this encounter Plan of Treatment Upcoming Encounters Date Type Department Care Team (Late st Contact Info) Description 12/31/2023 9:40 AM EDT Telemedicine [facility] [address] [facility] [place] [place] [address] Naomy Albarran PA-C [address] [facility] [place] [id number] 01/13/2024 6:30 AM EDT 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 Pharmacy Call Center [address] [facility] [place] [address] [facility] [address] [facility] [place] [address] 03/24/2024 3:40 PM EDT [facility] [address] [facility] [place] [place] [address] Jamey Koch MD [address] [facility] [place] [phone] Health Maintenance Due Date Last Done Comments [...] filedocumented as of this encounter Care Teams Color Dipper Relationship Specialty Start Date End Date Jamey Koch MD [address] [place] [address] PCP - General 03/06/06 documented as of this encounter
--- OUTSIDE RECORDS SUMMARY | 2024-02-24 22:44 | External Medical Summary | Summary of Care ---
Author Name Unknown Organization [facility] Address [address] [place] [address] Phone [phone] Care Team Providers Care Line Lead Name Role Phone Jamey Koch MD Primary Care Provider +1- [phone] Encounter Details Date Type Department Care Team (Late st Contact Info) Description 12/28/2023 Result Scan Unspecified Department <No scans attached> Allergies No known active allergiesdocumented as of this encounter (statuses as of 12/30/2023) Medications Medication Sig Dispensed Refills Start Date End Date Status ASPIRIN 81 MG PO CHEW One pill by mouth once a day with food 100 Tab 5 0 Active Warfarin Sodium 7.5 MG Oral Tablet (Coumadin)Indicatio ns: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,retirement current use of 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 therapy TAKE ONE-HALF [...] hemoglobin A1c goal of less than 7.0% ([facility]) TAKE 1 CAPSULE BY MOUTH ONCE DAILY [...] -- AHI 30.8, CPAP 8 cwp DME: SALES REPRESENTATIVE, [place] Atrial fibrillation 11/03/2012 Stasis dermatitis 03/03/2012 Dyslipidemia, [...] Care Team (Late st Contact Info) Description 03/24/2024 3:40 PM EDT Telemedicine [facility] [address] [place] [phone] Jamey Koch MD [address] [place] [address] Health Maintenance Due Date Last Done Comments [...] Date/Time Associated Diagnosis Comments OUTSIDE LAB RESULTS 12/28/2023 documented in this encounter Results * OUTSIDE LAB RESULTS (12/28/2023) 12/28/2023 No Physician Data Unknown LABORATORY documented in this encounter Care Teams Line Lead Relationship Specialty Start Date End Date Jamey Koch MD [address] [place] [address] PCP - General 03/06/06 documented as of this encounter
--- OUTSIDE RECORDS SUMMARY | 2024-02-24 22:44 | External Medical Summary | Summary of Care ---
Author Name Unknown Organization [facility] Address [address] [place] [address] Phone [phone] Care Team Providers Care Mail Handler Assistant Name Role Phone Jamey Koch MD Primary Care Provider +1- [phone] Reason for Visit * Reason Onset Date Comments Medication Question 12/23/2023 Interaction Encounter Details Date Type Department Care Team (Late st Contact Info) Description 12/23/2023 Telephone [facility] [address] [place] [address] Naomy Albarran PA-C [address] [place] [address] Medication Question (Interaction) Allergies No known active allergiesdocumented as of this encounter (statuses as of 12/26/2023) Medications Medication Sig Dispensed Refills Start Date End Date Status ASPIRIN 81 MG PO CHEW One pill by mouth once a day with food 100 Tab 5 0 Active Warfarin Sodium 7.5 MG Oral Tablet (Coumadin)Indicatio ns: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,longterm current use of 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 therapy TAKE ONE-HALF [...] hemoglobin A1c goal of less than 7.0% ([facility]) TAKE 1 CAPSULE BY MOUTH [...] as of this encounter (statuses as of 12/26/2023) Active Problems Problem Noted Date Diagnosed Date [...] -- AHI 30.8, CPAP 8 cwp 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 * Telephone Encounter - Naomy Albarran PA-C - 12/23/2023 3:13 PM EDT It is fine - every time a med is prescribed that interacts with coumadin, our pharmacy team that manages the coumadin is informed and reaches out to patient with ay adjustments Please fill script. Naomy lAbarran PA-C 12/23/2023 3:14 PM * Telephone Encounter - Jossie Carreon LPN - 12/23/2023 1:05 PM EDT Kelsie from [facility] states that there is an interaction between Zpak and Coumadin The interaction is -increases the Coumadin concentration and increased risk for bleeding. Pharmacy wants to make Naomy aware of this interaction and needs to confirm that it is ok to fillscript. The script can't be filled without a call back or a new script sent. Please advise documented in this encounter Plan of Treatment Upcoming Encounters Date Type Department Care Team (Late st Contact Info) Description 12/30/2023 6:30 AM EDT 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 Pharmacy Call Center [address] [facility] [place] [address] [facility] [address] [facility] [place] [address] Health Maintenance Due Date Last Done Comments [...] filedocumented as of this encounter Care Teams Mail Handler Assistant Relationship Specialty Start Date End Date Jamey Koch MD [address] [place] [address] PCP - General 03/06/06 documented as of this encounter
--- OUTSIDE RECORDS SUMMARY | 2024-02-24 22:44 | External Medical Summary | Summary of Care ---
Author Name Unknown Organization [facility] Address [address] [place] [address] Phone [phone] Care Team Providers Care Beauty Specialist Name Role Phone Jamey Koch MD Primary Care Provider +1- [phone] Encounter Details Date Type Department Care Team (Late st Contact Info) Description 12/14/2023 Result Scan Unspecified Department <No scans attached> Allergies No known active allergiesdocumented as of this encounter (statuses as of 12/16/2023) Medications Medication Sig Dispensed Refills Start Date End Date Status ASPIRIN 81 MG PO CHEW One pill by mouth once a day with food 100 Tab 5 0 Active Zoster Vac Recomb Adjuvanted 50 MCG/0.5ML Intramuscular Suspension Reconstituted (Shingrix)Indicatio ns:Need for shingles vaccine Inject 0.5 mL into a large muscle now and repeat dose in 60 to 180 days 1 Each 1 2 Active Additional Information Patient not taking.Reported on 01/01/2023 Warfarin Sodium 7.5 MG Oral Tablet (Coumadin)Indicatio ns: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,[facility]DC current use of 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 therapy TAKE ONE-HALF [...] hemoglobin A1c goal of less than 7.0% ([facility]) TAKE 1 CAPSULE BY MOUTH ONCE DAILY [...] the morning. 45 Tablet 3 3 Active Albuterol Sulfate HFA 108 (90 Base) [...] THE EVENING 90 Tablet 3 4 Active documented as of this encounter (statuses as of 12/16/2023) Active Problems Problem Noted Date Diagnosed Date [...] -- AHI 30.8, CPAP 8 cwp DME: BOOKSTORE CLERK, [place] Atrial fibrillation 11/03/2012 Stasis dermatitis 03/03/2012 Dyslipidemia, goal LDL below 70 01/10/2012 documented as of this encounter (statuses as of 12/16/2023) Resolved Problems Problem Noted Date Diagnosed Date [...] as of this encounter (statuses as of 12/16/2023) Immunizations Name Administration Dates Next Due Hepatitis [...] as of this encounter Plan of Treatment Health Maintenance Due Date Last Done Comments [...] Date/Time Associated Diagnosis Comments OUTSIDE LAB RESULTS 12/14/2023 documented in this encounter Results * OUTSIDE LAB RESULTS (12/14/2023) 12/14/2023 No Physician Data Unknown LABORATORY documented in this encounter Care Teams Beauty Specialist Relationship Specialty Start Date End Date Jamey Koch MD [address] [place] [address] PCP - General 03/06/06 documented as of this encounter
--- OUTSIDE RECORDS SUMMARY | 2024-02-24 22:44 | External Medical Summary | Summary of Care ---
Author Name Unknown Organization [facility] Address [address] [place] [address] Phone [phone] Care Team Providers Care Mail Teller Name Role Phone Jamey Koch MD Primary Care Provider +1- [phone] Encounter Details Date Type Department Care Team (Late st Contact Info) Description 12/30/2023 Telephone [facility] [address] [place] [address] Jamey Koch MD [address] [place] [address] Allergies No known active allergiesdocumented as of this encounter (statuses as of 12/30/2023) Medications Medication Sig Dispensed Refills Start Date End Date Status ASPIRIN 81 MG PO CHEW One pill by mouth once a day with food 100 Tab 5 0 Active Warfarin Sodium 7.5 MG Oral Tablet (Coumadin)Indicatio ns: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 When paperwork is completed, please call [phone] for pt to p/u. Paperwork placed in provider's mail bin. documented in this encounter Plan of Treatment Upcoming Encounters Date Type Department Care Team (Late st Contact Info) Description 12/31/2023 9:40 AM EDT Telemedicine [facility] [place] [address] [facility] [phone] Naomy [facility]barran [facility]-C [address] [facility] [address] 03/24/2024 3:40 PM EDT [facility] [place] [address] [facility] [phone] Jamey Koch MD [address] [facility] [address] Health Maintenance Due Date Last Done Comments [...] as of this encounter Care Teams Mail Teller Relationship Specialty Start Date End Date Jamey Koch MD [address] [place] [address] PCP - General 03/06/06 documented as of this encounter
--- OUTSIDE RECORDS SUMMARY | 2024-02-24 22:44 | External Medical Summary | Summary of Care ---
Author Name Unknown Organization [facility] Address [address] [place] [address] Phone [phone] Care Team Providers Care Pluck Separator Name Role Phone Jamey Koch MD Primary Care Provider +1- [phone] Reason for Visit * Reason Comments Dosage Adjustment Via Phone (anticoag Cl inic) Encounter Details Date Type Department Care Team (Latest Contact Info) Description 12/16/2023 6:30 AM EDT 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 Pharmacy Call Center [address] [place] [address] [facility] [address] [place] [address] Longstanding persistent atrial fibrillation (HCC)* Allergies No [...] 7.5 MG Oral Tablet (Coumadin)Indicatio ns: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,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 TAKE [...] goal of less than 7.0% ([facility]) TAKE 1 CAPSULE BY MOUTH ONCE DAILY [...] -- AHI 30.8, CPAP 8 cwp DME: LOADMASTER, [place] Atrial fibrillation 11/03/2012 Stasis dermatitis 03/03/2012 Dyslipidemia, [...] as of this encounter Progress Notes * Nancie Iverson uplands division director - 12/16/2023 8:13 AM EDT Contacts Type Contact Phone/Fax 12/16/2023 08:12 AM EDT Phone (Outgoing) Candido Curry (Self) [phone] (M) Left Message Subjective Advised patient to contact 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 Clinic if any unusual bruising or bleeding, recent illness, changes in medication, or questions/concerns. PT/INR results, Coumadin dose instructions, and next PT/INR date communicated as noted by Pharmacist: Yes CHERYLE DOSHI 12/16/2023, 8:13 AM * Melissa Roberts [facility] - 12/16/2023 8:08 AM EDT Coumadin Clinic (region specific) Objective Current Warfarin Dose As of 12/16/2023 Warfarin maintenance plan: 10 mg (5 mg x 2) every Fri; 5 mg (5 mg x 1) all other days INR Result As of 12/16/2023 INR goal: 2.0-3.0 INR used for dosin.4 (12/14/2023) Assessment & Plan Warfarin Plan As of 12/16/2023 Full warfarin instructions: 10 mg every Fri; 5 mg all other days No change documented: Melissa Roberts RPh Next INR check: 12/28/2023 Repeat PT/INR in 2 week(s) Weekly dose: not changed Additional Dosing Information: Description Home pellet machine operator to contact patient with dose instructions as noted. Melissa Roberts RPh 12/16/2023, 8:08 AM * Judit Martins CPhT - 12/16/2023 7:09 AM EDT Received PT/INR result from 12/13 via fax from [employer] INR = 2.4 Thank you, Judit Martins [facility] 12/16/2023,7:09 AM documented in this encounter Plan of Treatment Health Maintenance [...] Date/Time Associated Diagnosis Comments OUTSIDE LAB-PT/INR Routine 12/14/2023 documented in this encounter Results * OUTSIDE LAB-PT/INR (12/14/2023) INR-OUTSIDE LAB 2.4 HOME FINGERSTIC K DEVICE History Per Patient LABORATORY HOME FINGERSTICK DEVICE documented in this encounter Visit Diagnoses Diagnosis Longstanding persistent atrial fibrillation (HCC)- Primary documented in this encounter Care Teams Pluck Separator Relationship Specialty Start Date End Date Jamey Koch MD [address] [place] [facility] [place] [address] PCP - General 03/06/06 documented as of this encounter
--- OUTSIDE RECORDS SUMMARY | 2024-02-24 22:44 | External Medical Summary | Summary of Care ---
Author Name Unknown Organization [facility] Address [address] [place] [address] Phone [phone] Care Team Providers Care Want Ad Clerk Name Role Phone Jamey Koch MD Primary Care Provider +1- [phone] Encounter Details Date Type Department Care Team (Late st Contact Info) Description 12/23/2023 12:40 PM EDT Telemedicine [facility] [address] [place] [address] Naomy Albarran PA-C [address] [place] [address] Bronchitis*; Chronic heart failure with preserved ejection fraction ([facility]); Atrial fibrillation, unspecified type ([facility]); Body mass index (BMI) of 60.0 to 69.9 in adult ([facility]); Type 2 diabetes mellitus with hemoglobin A1c goal of less than 7.0% ([facility]); Cough; PND (post-nasal drip) Allergies No known active allergiesdocumented as of this encounter (statuses as of 12/23/2023) Medications Medication Sig Dispensed Refills Start Date End Date Status ASPIRIN 81 MG PO CHEW One pill by mouth once a day with food 100 Tab 5 08/03/20 10 Active Warfarin Sodium 7.5 MG Oral Tablet (Coumadin)Indicat ions:Anticoagulat ion 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,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 [...] Omeprazole 40 MG Oral Capsule Delayed Release (PriLOSEC)Indicat ions:Type 2 diabetes mellitus with hemoglobin A1c goal of less than 7.0% ([facility]) TAKE 1 CAPSULE BY MOUTH ONCE DAILY 1 HOUR BEFORE BREAKFAST 90 Capsule 3 01/02/20 23 Active Warfarin Sodium 5 MG Oral Tablet (Coumadin) Take 1 Tablet by mouth every evening. And adjust as directed by the anticoagulation clinic 90 Tablet 3 01/02/20 23 Active Ondansetron 4 MG Oral Tablet Disintegrating (Zofran)Indicatio ns:Nausea and vomiting, unspecified vomiting type Place 1 Tablet on tongue every 8 hours as needed for Nausea. dissolve on tongue. 30 Tablet 1 01/09/20 23 Active HYDROcodone-Aceta minophen 5-325 MG Oral TabletIndications :Primary osteoarthritis of both knees Take 0.5-1 Tablets by mouth every 8 hours as needed for Pain, Mild. 30 Tablet 0 02/06/20 23 Active Spironolactone 25 MG Oral Tablet (Aldactone)Indica tions:Acute on chronic heart failure with preserved ejection fraction (HCC) Take 0.5 Tablets by mouth in the morning. 45 Tablet 3 02/20/20 23 Active traMADol HCl ER 200 MG Oral Tablet Extended Release 24 Hour (Ultram ER)Indications:Co ntrolled substance agreement signed Take 1 Tablet by mouth in the morning. 30 Tablet 0 11/29/19 24 Active Metoprolol Succinate 50 MG Oral Capsule ER 24 Hour Sprinkle Take 50 mg by mouth in the morning and 50 mg in the evening. 180 Capsule 0 11/28/19 24 Active Atorvastatin Calcium 40 MG Oral Tablet (Lipitor)Indicati ons:Dyslipidemia, goal LDL below 100 TAKE 1 TABLET BY MOUTH ONCE DAILY IN THE EVENING 90 Tablet 3 12/12/19 24 Active Azithromycin 250 MG Oral Tablet (Zithromax Z-Malick)Indications :Bronchitis Take two tablets by mouth on first day, then 1 tablet daily until gone 6 Tablet 0 12/23/19 24 Active predniSONE 10 MG Oral Tablet (Deltasone)Indica tions:Bronchitis Take 5 tabs for 2 days, 4 tabs for 2 days, 3 tabs for 2 days, 2 tabs for 2 days 1 tab for 2 days 30 Tablet 0 12/23/19 24 Active Benzonatate 100 MG Oral Capsule (Tessalon Perles)Indication s:Bronchitis Take 1 Capsule by mouth 3 times a day as needed for Cough. Do not cut, crush, or chew. 90 Capsule 1 12/23/19 24 Active Albuterol Sulfate HFA 108 (90 Base) MCG/ACT Inhalation Aerosol SolutionIndicatio ns:Cough,PND (post-nasal drip) INHALE 2 PUFFS BY MOUTH 4 TIMES DAILY NEEDED FOR SHORTNESS OF BREATH AND COUGH 54 g 1 12/23/19 24 Active Zoster Vac Recomb Adjuvanted 50 MCG/0.5ML Intramuscular Suspension Reconstituted (Shingrix)Indicat ions:Need for shingles vaccine Inject 0.5 mL into a large muscle now and repeat dose in 60 to 180 days 1 Each 1 11/08/19 22 024 Discontinued Albuterol Sulfate HFA 108 (90 Base) MCG/ACT Inhalation Aerosol SolutionIndicatio ns:Cough,PND (post-nasal drip) INHALE 2 PUFFS BY MOUTH 4 TIMES DAILY NEEDED FOR SHORTNESS OF BREATH AND COUGH 54 g 1 10/28/19 24 024 Discontinued(Re fill) documented as of this encounter (statuses as of 12/23/2023) Active Problems Problem Noted Date Diagnosed Date [...] AHI 30.8, CPAP 8 cwp 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 History of Present Illness Candido Curry is a 63 year old male that presents for No chief complaint on file. Due to COVID 19 pandemic, this visit was done via video. Patient is established with the practice. Last face to face visit was 01/01/2023. Call start time: 1241 Patient location: HOME. I was in a hospital or clinic location. After connecting through televideo,patient was verified with two unique identifiers. 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 Methods to assure confidentiality were taken. Patient acknowledged consent and understanding of pr ivacy and security of the Telemedicine visit. The patient agreed to participate. Started with a sore throat That went away but now he has rhinitis and cough all the time Ears are fine Coughing and getting green yellow mucus When he has his cpap on he is fine When mask comes off he is coughing. Drinking hot tea + wheeze Energy is not bad but he has some poe that is new He is not retaining fluid - legs are down and look good No fever Pulse ox was at 95% Physical Exam There were no vitals filed [...] 1.829 m (6') Assessment and Plan Bronchitis (Primary) - Azithromycin 250 MG Oral Tablet (Zithromax Z-Malick); Take two tablets by mouth on first day, then 1tablet daily until gone - predniSONE 10 MG Oral Tablet (Deltasone); Take 5 tabs for 2 days, 4 tabs for 2 days, 3 tabs for 2days, 2 tabs for 2 days 1 tab for 2 days - Benzonatate 100 MG Oral Capsule (Tessalon Perles); Take 1 Capsule by mouth 3 times a day as needed for Cough. Do not cut, crush, or chew. Chronic heart failure with preserved ejection fraction ([facility]) Atrial fibrillation, unspecified type ([facility]) Body mass index (BMI) of 60.0 to 69.9 in adult ([facility]) Type 2 diabetes mellitus with hemoglobin A1c goal of less than 7.0% ([facility]) Cough - Albuterol Sulfate HFA 108 (90 Base) MCG/ACT Inhalation Aerosol Solution; INHALE 2 PUFFS BY MOUTH 4 TIMES DAILY NEEDED FOR SHORTNESS OF BREATH AND COUGH PND (post-nasal drip) - Albuterol Sulfate HFA 108 (90 Base) MCG/ACT Inhalation Aerosol Solution; INHALE 2 PUFFS BY MOUTH 4 TIMES DAILY NEEDED FOR SHORTNESS OF BREATH AND COUGH Discussed risk and benefits of short term prednisone therapy. Pt aware that there are side affects such as increased energy, aggression and mood swings, swelling, and increase in appetite. Agrees that this is the best course and is what is needed to deal with the issues. comfort care measures discussed saline nasal spray with bulb syringe plenty of fluids Tylenol per dosing recommendations for low grade fever humidifier Cont inhaler Coricidin Wrap-Up Time: I spent a total of 10-19 minutes (exact time 10 mins) on the date of service in preparation, delivery, and documentation of the care provided to Candido Curry excluding any time spent in the performance of separately billed services. Naomy Albarran PA-C 12/23/2023 12:46 PM documented in this encounter Plan of Treatment Upcoming Encounters Date Type Department Care Team (Late st Contact Info) Description 12/30/2023 6:30 AM EDT 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 Pharmacy Call Center [address] [facility] [place] [address] [facility] [address] [facility] [place] [address] Health Maintenance Due Date Last Done Comments [...] Bronchitis, not specified as acute or chronic Chronic heart failure with preserved ejection fraction (HCC) Atrial fibrillation, unspecified type ([facility]) Body mass index (BMI) of 60.0 to 69.9 in adult (HCC) Type 2 diabetes mellitus with hemoglobin A1c goal of less than 7.0% (HCC) Cough PND (post-nasal drip) Postnasal drip documented in this encounter Care Teams Want Ad Clerk Relationship Specialty Start Date End Date Jamey Koch MD [address] [place] [address] PCP - General 03/06/06 documented as of this encounter
--- OUTSIDE RECORDS SUMMARY | 2024-02-24 22:45 | External Medical Summary | Summary of Care ---
Author Name Unknown Organization [facility] Address [address] [place] [address] Phone [phone] Care Team Providers Care Manager Voice Name Role Phone Jessica Regan MD Primary Care Provider +1- [phone] Reason for Visit * Reason Comments eRx-Medication Refill Encounter Details Date Type Department Care Team (Late st Contact Info) Description 10/26/2023 Refill [facility] [address] [place] [address] Naomy Albarran PA-C [address] [place] [address] Cough; PND (post-nasal drip) Allergies No known active allergiesdocumented as of this encounter (statuses as of 10/28/2023) Medications Medication Sig Dispensed Refills Start Date [...] MG Oral Tablet (Coumadin)Indicati ons: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,longterm current use of 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 therapy TAKE ONE-HALF TO ONE TABLET BY MOUTH DAILY DIRECTED BY ANTICOAG CLINIC 135 Tablet 3 02/21/20 22 Active Atorvastatin Calcium 40 MG Oral Tablet (Lipitor)Indicatio ns:Dyslipidemia, goal LDL below 100 Take 1 Tablet by mouth every evening. 90 Tablet 3 10/30/19 23 Active Diclofenac Sodium 1 % External Gel (Voltaren) Apply 2 g topically to affected area in the morning and 2 g at noon and 2 g in the evening. Apply to joints as neede. 0 Active Furosemide 20 MG Oral Tablet (Lasix) Take 1 Tablet by mouth daily as needed. For edema 0 Active Metoprolol Succinate 50 MG Oral Capsule ER 24 Hour Sprinkle Take 50 mg by mouth in the morning and 50 mg in the evening. 180 Capsule 3 01/02/20 23 Active Allopurinol 100 MG Oral Tablet (Zyloprim) Take 1 Tablet by mouth in the morning. 90 Tablet 3 01/02/20 23 Active Omeprazole 40 MG Oral Capsule Delayed Release (PriLOSEC)Indicati ons:Type 2 diabetes mellitus with hemoglobin A1c goal of less than 7.0% ([facility]) TAKE 1 CAPSULE BY MOUTH ONCE [...] Hour (Ultram ER)Indications:Con trolled substance agreement signed TAKE 1 TABLET BY MOUTH IN THE MORNING 30 Tablet 0 09/24/19 24 Active Albuterol Sulfate HFA 108 (90 Base) MCG/ACT Inhalation Aerosol SolutionIndication s:Cough,PND (post-nasal drip) INHALE 2 PUFFS BY MOUTH 4 TIMES DAILY NEEDED FOR SHORTNESS OF BREATH AND COUGH 54 g 1 10/28/19 24 Active Albuterol Sulfate HFA 108 (90 Base) MCG/ACT Inhalation Aerosol SolutionIndication s:Cough,PND (post-nasal drip) Inhale 2 Puffs by mouth in the morning and 2 Puffs at noon and 2 Puffs in the evening and 2 Puffs before bedtime. As needed for SOB and cough.. 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, [place] Atrial fibrillation 11/03/2012 Stasis dermatitis 03/03/2012 Dyslipidemia, goal LDL below 70 01/10/2012 documented as of this encounter (statuses as of 10/28/2023) Resolved Problems Problem Noted Date Diagnosed Date [...] as of this encounter (statuses as of 10/28/2023) Immunizations Name Administration Dates Next Due Hepatitis [...] Notes * Telephone Encounter - Vu Parra [facility] - 10/28/2023 1:08 PM EST Signed Prescriptions: Disp Refills Albuterol Sulfate HFA 108 (90 Base) MCG/AC*54 g 1 Sig: INHALE 2 PUFFS BY MOUTH 4 TIMES DAILY NEEDED FOR SHORTNESS OF BREATH AND COUGHAuthorizing Provider: JESSICA REGAN User: VU PARRA documented in this encounter Plan of Treatment Upcoming Encounters Date Type Department Care Team (Late st Contact Info) Description 11/04/2023 6:30 AM EDT 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 Pharmacy Call Center [address] [facility] [place] [address] [facility] [address] [facility] [place] [address] Health Maintenance Due Date Last Done Comments [...] as of this encounter Visit Diagnoses Diagnosis Cough PND (post-nasal drip) Postnasal drip documented in this encounter Care Teams Manager Voice Relationship Specialty Start Date End Date Jessica Regan MD [address] [place] [address] PCP - General 03/06/06 documented as of this encounter
--- OUTSIDE RECORDS SUMMARY | 2024-02-24 22:45 | External Medical Summary | Summary of Care ---
Author Name Unknown Organization [facility] Address [address] [place] [address] Phone [phone] Care Team Providers Care Bacteriologist Dairy Name Role Phone Jamey Regan MD Primary Care Provider +1- [phone] Reason for Visit * Reason Comments eRx-Medication Refill Encounter Details Date Type Department Care Team (Late st Contact Info) Description 10/31/2023 Refill [facility] [address] [place] [address] Jamey Regan MD [address] [place] [address] Controlled substance agreement signed Allergies No known active allergiesdocumented as of this encounter (statuses as of 11/01/2023) Medications Medication Sig Dispensed Refills Start Date [...] ANTICOAG CLINIC 135 Tablet 3 2 Active Atorvastatin Calcium 40 MG Oral Tablet (Lipitor)Indicatio ns:Dyslipidemia, goal LDL below 100 Take 1 Tablet by mouth every evening. 90 Tablet 3 3 Active Diclofenac Sodium 1 % External Gel [...] mg in the evening. 180 Capsule 3 3 Active Allopurinol 100 MG Oral Tablet (Zyloprim) Take 1 Tablet by mouth in the morning. 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, [place] Atrial fibrillation 11/03/2012 Stasis dermatitis 03/03/2012 Dyslipidemia, goal LDL below 70 01/10/2012 documented as of this encounter (statuses as of 11/01/2023) Resolved Problems Problem Noted Date Diagnosed Date [...] as of this encounter (statuses as of 11/01/2023) Immunizations Name Administration Dates Next Due Hepatitis [...] Telephone Encounter - Jamey Regan MD - 11/01/2023 4:16 PM ESTRefused Prescriptions: Disp Refills traMADol HCl ER 200 MG Oral Tablet Extende*30 Tab*0 Sig: TAKE 1TABLET BY MOUTH ONCE DAILY IN THE MORNINGRefused By: Meaghan REGAN for Refusal: Duplicate Request * Telephone Encounter - Linnea Funez [facility] - 11/01/2023 10:54 AM EST Pending Prescriptions: Disp Refills traMADol HCl ER 200 MG Oral Tablet Extende*30 Tab*0 Sig: TAKE 1 TABLET BY MOUTH ONCE DAILY IN THE MORNING * Telephone Encounter - Linnea Funez RPh - 11/01/2023 10:53 AM EST I have reviewed the patients controlled substance dispensing history in the Prescription Drug Monitoring Program in compliance with the [facility] regulations before prescribing a controlled substance. PDMP checked on 11/01/2023. Pending Prescriptions: Disp Refills traMADol HCl ER 200 MG Oral Tablet Extend*30 Tab*0 Sig: TAKE 1 TABLET BY MOUTH ONCE DAILY IN THE MORNING Last Visit: 01/01/2023 (in office), 02/05/2023 (telemedicine) Next Visit: Visit date not found Date medication was last filled: 09/24/23 Date medication is due for refill: 10/23/23 Pharmacy: [facility] [address] [address] Is this request for a controlled substance? Yes and Urine Drug Screen Not completed Toxicology results: No results found. However, due to the size of the patient record, not all encounters were searched.Please check Results Review for a complete set of results. Please approve if appropriate. Thanks, Linnea Funez [facility] Clinical Pharmacist [facility] ([facility]) (Formerly Telepharmacy) [phone] documented in this encounter Plan of Treatment Upcoming Encounters Date Type Department Care Team (Late st Contact Info) Description 11/04/2023 6:30 AM EDT 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 Pharmacy Call Center [address] [place] [address] [facility] [address] [facility] [place] [address] Health Maintenance Due Date Last Done Comments [...] medications documented in this encounter Care Teams Bacteriologist Dairy Relationship Specialty Start Date End Date Jamey Regan MD [address] [place] [address] PCP - General 03/06/06 documented as of this encounter
--- OUTSIDE RECORDS SUMMARY | 2024-02-24 22:45 | External Medical Summary | Summary of Care ---
Author Name Unknown Organization [facility] Address [address] [place] [address] Phone [phone] Care Team Providers Care Radio Adjuster Name Role Phone Jamey Koch MD Primary Care Provider +1- [phone] Encounter Details Date Type Department Care Team (Late st Contact Info) Description 11/29/2023 Result Scan Unspecified Department Ayaka Fox, [facility] [address] [place] [address] <No scans attached> Allergies No known active allergiesdocumented as of this encounter (statuses as of 11/29/2023) Medications Medication Sig Dispensed Refills Start Date [...] MG Oral Tablet (Coumadin)Indicati ons: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,[facility] current use of 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 therapy TAKE ONE-HALF [...] hemoglobin A1c goal of less than 7.0% ([facility]) TAKE 1 CAPSULE BY MOUTH [...] AND COUGH 54 g 1 4 Active Metoprolol Succinate 50 MG Oral Capsule ER 24 Hour Sprinkle Take 50 mg by mouth in the morning and 50 mg in the evening. 180 Capsule 0 4 Active traMADol HCl ER 200 MG Oral Tablet Extended Release 24 Hour (Ultram ER)Indications:Con trolled substance agreement signed Take 1 Tablet by mouth in the morning. 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, [place] Atrial fibrillation 11/03/2012 Stasis dermatitis 03/03/2012 Dyslipidemia, goal LDL below 70 01/10/2012 documented as of this encounter (statuses as of 11/29/2023) Resolved Problems Problem Noted Date Diagnosed Date [...] as of this encounter (statuses as of 11/29/2023) Immunizations Name Administration Dates Next Due Hepatitis [...] Care Team (Late st Contact Info) Description 12/02/2023 6:30 AM EDT 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 Pharmacy Call Center [address] [facility] [place] [address] [facility] [address] [facility] [place] [address] Health Maintenance Due Date Last Done Comments HIV Screening 1977 Hepatitis C Screening 02/23/1980 Colonoscopy 2007 Fecal Occult Blood Test 2007 Sigmoidoscopy 2007 Zoster Vaccines (1 of 2) 02/23/2012 Pneumococcal Vaccine: Pediatrics (0 to 5 Years) and At-Risk Patients (6 to 64 Years) (2 of 2 - PCV) 06/13/2013 06/13/2012 Diabetic Foot Exam 08/10/2016 08/10/2015, 1 09/12/2012, 10/03/2012, Additional history exists Albumin/Creatinine Ratio 12/18/201812/18/ 018, 08/10/2015, 07/30/2014, Additional history exists Depression [...] Date/Time Associated Diagnosis Comments OUTSIDE LAB RESULTS 11/29/2023 documented in this encounter Results * OUTSIDE LAB RESULTS (11/29/2023) 11/29/2023 Ayaka Fox [facility] LABORATORY documented in this encounter Care Teams Radio Adjuster Relationship Specialty Start Date End Date Jamey Koch MD [address], [place] [id number] PCP - General 03/06/06 documented as of this encounter
--- OUTSIDE RECORDS SUMMARY | 2024-02-24 22:45 | External Medical Summary | Summary of Care ---
Author Name Unknown Organization [facility] Address [address] [place] [address] Phone [phone] Care Team Providers Care Brim Pouncer Name Role Phone Jamey Koch MD Primary Care Provider +1- [phone] Encounter Details Date Type Department Care Team (Late st Contact Info) Description 11/15/2023 Result Scan Unspecified Department Ayaka Fox, [facility] [address] [place] [address] <No scans attached> Allergies No known active allergiesdocumented as of this encounter (statuses as of 11/18/2023) Medications Medication Sig Dispensed Refills Start Date [...] 7.5 MG Oral Tablet (Coumadin)Indicatio ns: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,[facility] current use of 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 therapy TAKE ONE-HALF TO ONE TABLET BY MOUTH DAILY DIRECTED BY ANTICOAG CLINIC 135 Tablet 3 2 Active Atorvastatin Calcium 40 MG Oral Tablet (Lipitor)Indication s:Dyslipidemia, goal LDL below 100 Take 1 Tablet [...] goal of less than 7.0% ([facility]) TAKE 1 CAPSULE BY MOUTH ONCE [...] the morning. 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, [place] Atrial fibrillation 11/03/2012 Stasis dermatitis 03/03/2012 Dyslipidemia, goal LDL below 70 01/10/2012 documented as of this encounter (statuses as of 11/18/2023) Resolved Problems Problem Noted Date Diagnosed Date [...] as of this encounter (statuses as of 11/18/2023) Immunizations Name Administration Dates Next Due Hepatitis [...] Vaccine ( season) 2023 GFR 05/28/2024 05/28/2023, 04/, 12/22/2022, Additional history exists Cologuard 01/02/2025 01/02/2022, [...] Date/Time Associated Diagnosis Comments OUTSIDE LAB RESULTS 11/15/2023 documented in this encounter Results * OUTSIDE LAB RESULTS (11/15/2023) 11/15/2023 Ayaka Fox [facility] LABORATORY documented in this encounter Care Teams Brim Pouncer Relationship Specialty Start Date End Date Jamey Koch MD [address] [place] [address] PCP - General 03/06/06 documented as of this encounter
--- OUTSIDE RECORDS SUMMARY | 2024-02-24 22:45 | External Medical Summary | Summary of Care ---
Author Name Unknown Organization [facility] Address [address] [place] [address] Phone [phone] Care Team Providers Care Hospice Music Therapist Name Role Phone Jamey Koch MD Primary Care Provider +1- [phone] Encounter Details Date Type Department Care Team (Late st Contact Info) Description 11/03/2023 Result Scan Unspecified Department <No scans attached> Allergies No known active allergiesdocumented as of this encounter (statuses as of 11/04/2023) Medications Medication Sig Dispensed Refills Start Date [...] 7.5 MG Oral Tablet (Coumadin)Indicatio ns: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,custodial current use of 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 therapy TAKE ONE-HALF [...] as of this encounter (statuses as of 11/04/2023) Active Problems Problem Noted Date Diagnosed Date [...] -- AHI 30.8, CPAP 8 cwp 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, [place] Atrial fibrillation 11/03/2012 Stasis dermatitis 03/03/2012 Dyslipidemia, goal LDL below 70 01/10/2012 documented as of this encounter (statuses as of 11/04/2023) Resolved Problems Problem Noted Date Diagnosed Date [...] as of this encounter (statuses as of 11/04/2023) Immunizations Name Administration Dates Next Due Hepatitis [...] Date/Time Associated Diagnosis Comments OUTSIDE LAB RESULTS 11/03/2023 documented in this encounter Results * OUTSIDE LAB RESULTS (11/03/2023) 11/03/2023 No Physician Data Unknown LABORATORY documented in this encounter Care Teams Hospice Music Therapist Relationship Specialty Start Date End Date Jamey Koch MD [address] [place] [address] PCP - General 03/06/06 documented as of this encounter
--- OUTSIDE RECORDS SUMMARY | 2024-02-24 22:45 | External Medical Summary | Summary of Care ---
Author Name Unknown Organization [facility] Address [address] [place] [address] Phone [phone] Care Team Providers Care Tree Feller Operator Name Role Phone Jamey Koch MD Primary Care Provider +1- [phone] Reason for Visit * Reason Comments Dosage Adjustment Via Phone (anticoag Cl inic) Encounter Details Date Type Department Care Team (Latest Contact Info) Description 11/18/2023 6:30 AM EDT 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 Pharmacy Call Center [phone] [place] [address] [facility] [address] [place] [address] Longstanding persistent atrial fibrillation (HCC)* Allergies No [...] 7.5 MG Oral Tablet (Coumadin)Indicatio ns: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 More greens could be cause for low INR today. Will continue with plan to bolus today and advised patient keep diet as consistent as possible. Thank you, Lakeshia Arevalo PharmD Clinical Pharmacist [facility] Services ([facility]PS) (formerly Telepharmacy) 11/18/2023 4:29 PM * Landy Portillo, service correspondent - 11/18/2023 11:04 AM EDT Contacts Type Contact Phone/Fax 11/18/2023 10:59 AM EDT Phone (Outgoing) Candido Curry (Self) [phone] (M) Spoke to Patient Subjective Patient Findings Positives: Change in diet/appetite (Patient reports he did eat cabbage soup over [employer] Day) Negatives: Signs/symptoms of bleeding, Change in health, Change in activity, Upcoming invasive procedure, Missed doses, Extra doses, Change in medications, Bruising Advised patient to contact 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 Clinic if any unusual bruising or bleeding, recent illness, changes in medication, or questions/concerns. PT/INR results, Coumadin dose instructions, and next PT/INR date communicated as noted by Pharmacist: Yes LANDY PORTILLO service correspondent 11/18/2023, 11:04 AM * Lakeshia Arevalo RPh - 11/18/2023 8:29 AM EDT Images from the original note were not included. Coumadin Clinic (region specific) Objective Current Warfarin Dose As of 11/18/2023 Warfarin maintenance plan: 7.5 mg (5 mg x 1.5) every Fri; 5 mg (5 mg x 1) all other days INR Result As of 11/18/2023 INR goal: 2.0-3.0 INR used for dosin.8 (11/15/2023) Assessment & Plan Warfarin Plan As of 11/18/2023 Full warfarin instructions: 11/17: 7.5 mg; Otherwise 7.5 mg every Fri; 5 mg all other days Next INR check: 11/29/2023 Repeat PT/INR in 2 week(s) Weekly dose: not changed Additional Dosing Information: Description Home trimmer machine operator to contact patient with dose instructions as noted. aLkeshia Arevalo RPh 11/18/2023, 8:29 AM documented in this encounter Plan of Treatment Upcoming Encounters Date Type Department Care Team (Late st Contact Info) Description 12/02/2023 6:30 AM EDT 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 Pharmacy Call Center [address] [place] [address] [facility] [address] [place] [address] Health Maintenance Due Date Last Done Comments [...] Date/Time Associated Diagnosis Comments OUTSIDE LAB-PT/INR Routine 11/15/2023 documented in this encounter Results * OUTSIDE LAB-PT/INR (11/15/2023) INR-OUTSIDE LAB 1.8 History Per Patient LABORATORY documented in this encounter Visit Diagnoses Diagnosis Longstanding persistent atrial fibrillation (HCC)- Primary documented in this encounter Care Teams Tree Feller Operator Relationship Specialty Start Date End Date Jamey Koch MD [address] [place] [address] PCP - General 03/06/06 documented as of this encounter
--- OUTSIDE RECORDS SUMMARY | 2024-02-24 22:45 | External Medical Summary | Summary of Care ---
Author Name Unknown Organization [facility] Address [address] [place] [address] Phone [phone] Care Team Providers Care Stone Planer Name Role Phone Jamey Koch MD Primary Care Provider +1- [phone] Reason for Visit * Reason Comments Dosage Adjustment Via Phone (anticoag Cl inic) Encounter Details Date Type Department Care Team (Latest Contact Info) Description 10/21/2023 6:30 AM [facility] 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 Pharmacy Call Center [address] [place] [address] [facility] [address] [place] [address] Longstanding persistent atrial fibrillation (HCC)* Allergies No known active allergiesdocumented as of this encounter (statuses as of 10/21/2023) Medications Medication Sig Dispensed Refills Start Date [...] 7.5 MG Oral Tablet (Coumadin)Indicatio ns: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 As needed for SOB and cough.. 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, [place] Atrial fibrillation 11/03/2012 Stasis dermatitis 03/03/2012 Dyslipidemia, goal LDL below 70 01/10/2012 documented as of this encounter (statuses as of 10/21/2023) Resolved Problems Problem Noted Date Diagnosed Date [...] as of this encounter (statuses as of 10/21/2023) Immunizations Name Administration Dates Next Due Hepatitis [...] as of this encounter Progress Notes * Slava Espinoza CPhT - 10/21/2023 8:43 AM EST Contacts Type Contact Phone/Fax 10/20/2023 11:46 PM EST Fax (Incoming) 10/21/2023 08:41 AM EST Phone (Outgoing) Candido Curry (Self) [phone] (M) Left Message Subjective Advised patient to contact 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 Clinic if any unusual bruising or bleeding, recent illness, changes in medication, or questions/concerns. PT/INR results, Coumadin dose instructions, and next PT/INR date communicated as noted by Pharmacist: Yes Slava Espinoza CPhT 10/21/2023, 8:43 AM * ShaAline beavers RPh - 10/21/2023 8:14 AM EST Coumadin Clinic (region specific) Objective Current Warfarin Dose As of 10/21/2023 Warfarin maintenance plan: 7.5 mg (5 mg x 1.5) every Fri; 5 mg (5 mg x 1) all other days INR Result As of 10/21/2023 INR goal: 2.0-3.0 INR used for dosin.5 (10/18/2023) Assessment & Plan Warfarin Plan As of 10/21/2023 Full warfarin instructions: 7.5 mg every Fri; 5 mg all other days No change documented: Aline Espinoza RPh Next INR check: 11/01/2023 Repeat PT/INR in 2 week(s) Weekly dose: not changed Additional Dosing Information: Description Home crabbing machine operator to contact patient with dose instructions as noted. Aline Espinoza RPh 10/21/2023, 8:14 AM * Landy Massey nailhead setter - 10/20/2023 11:47 PM EST Patient Phone Numbers Received fax from [employer] for today's INR result of 2.5 Thank you, Landy Massey Sewing Inspector Centralized Clinical Pharmacy Services 10/20/2023,11:47 PM documented in this encounter Plan of [...] Date/Time Associated Diagnosis Comments OUTSIDE LAB-PT/INR Routine 10/18/2023 documented in this encounter Results * OUTSIDE LAB-PT/INR (10/18/2023) INR-OUTSIDE LAB 2.5 10/18/2023 History Per Patient LABORATORY documented in this encounter Visit Diagnoses Diagnosis Longstanding persistent atrial fibrillation (HCC)- Primary documented in this encounter Care Teams Stone Planer Relationship Specialty Start Date End Date Jamey Koch MD [address] [place] [facility] [place] [address] PCP - General 03/06/06 documented as of this encounter
--- OUTSIDE RECORDS SUMMARY | 2024-02-24 22:45 | External Medical Summary | Summary of Care ---
Author Name Unknown Organization [facility] Address [address] [place] [address] Phone [phone] Care Team Providers Care Forest Fire Warden Name Role Phone Jamey Regan MD Primary Care Provider +1- [phone] Reason for Referral * Medication Prior Authorization - Closed Specialty Diagnoses / Procedures Referred By Shahbaz goldberg Referred To Contact Diagnoses Controlled substance agreement signed Jamey Regan MD [address] [place] [address] Referral ID Status Reason Start Date Expiration Date Visits Re quested Visits Authorized [id number] Closed [phone] Reason for Visit * Reason Onset Date Comments Medication Refill 10/31/2023 Encounter Details Date Type Department Care Team (Late st Contact Info) Description 10/31/2023 Refill [facility] [address] [place] [address] Jamey Regan MD [address] [place] [address] Controlled substance agreement signed Allergies No known active allergiesdocumented as of this encounter (statuses as of 11/01/2023) Medications Medication Sig Dispensed Refills Start Date End Date Status ASPIRIN 81 MG PO CHEW One pill by mouth once a day with food 100 Tab 5 0 Active Zoster Vac Recomb Adjuvanted 50 MCG/0.5ML Intramuscular Suspension Reconstituted (Shingrix)Francisco ons:Need for shingles vaccine Inject 0.5 mL into a large muscle now and repeat dose in 60 to 180 days 1 Each 1 2 Active Additional Information Patient not taking.Reported on 01/01/2023 Warfarin Sodium 7.5 MG Oral Tablet (Coumadin)Francisco ons: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,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 TAKE ONE-HALF TO ONE TABLET BY MOUTH DAILY DIRECTED BY ANTICOAG CLINIC 135 Tablet 3 2 Active Atorvastatin Calcium 40 MG Oral Tablet (Lipitor)Franciscoo ns:Dyslipidemia, goal LDL below 100 Take 1 [...] Omeprazole 40 MG Oral Capsule Delayed Release (PriLOSEC)Francisco ons:Type 2 diabetes mellitus with hemoglobin A1c goal of less than 7.0% ([facility]) TAKE 1 CAPSULE BY MOUTH [...] -- AHI 30.8, CPAP 8 cwp 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 Electronically signed by Ren Martin, [facility] at 11/01/2023 11:14 AM EST * Telephone Encounter - Ren Martin, [facility] - 11/01/2023 11:13 AM EST I have reviewed the patients controlled substance dispensing history in the Prescription Drug Monitoring Program in compliance with the [facility] regulations before prescribing a controlled substance. PDMP checked on 11/01/2023. Pending Prescriptions: Disp Refills traMADol HCl ER 200 MG Oral Tablet Extend*30 Tab*0 Sig: Take 1 Tablet by mouth in the morning. Last Visit: 01/01/2023 (in office), 02/05/2023 (telemedicine) Next Visit: Visit date not found Date medication was last filled: 09/24/23 Date medication is due for refill: 10/23/23 Pharmacy: [facility] [address] [place] [place] Is this request for a controlled substance? Yes and Urine Drug Screen Not completed Toxicology results: No results found. However, due to the size of the patient record, not all encounters were searched.Please check Results Review for a complete set of results. Please approve if appropriate. Thank You, Ren Alaniz [facility] Clinical Pharmacist Centralized Clinical Pharmacy Services (CCPS) (formerly Telepharmacy) 11/01/2023, 11:13 AM Electronically signed by Ren Martin [facility] at 11/01/2023 11:14 AM EST documented in this encounter Plan of Treatment Upcoming Encounters Date Type Department Care Team (Late st Contact Info) Description 11/04/2023 6:30 AM EDT 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 Pharmacy Call Center [address] [facility] [place] [address] [facility] [address] [facility] [place] [address] Health Maintenance Due Date Last Done Comments [...] medications documented in this encounter Care Teams Forest Fire Warden Relationship Specialty Start Date End Date Jamey Regan MD [address] [place] [address] PCP - General 03/06/06 documented as of this encounter
--- OUTSIDE RECORDS SUMMARY | 2024-02-24 22:45 | External Medical Summary | Summary of Care ---
Author Name Unknown Organization [facility] Address [address] [place] [address] Phone [phone] Care Team Providers Care Solar Installation Manager Name Role Phone Jamey Koch MD Primary Care Provider +1- [phone] Reason for Visit * Reason Comments Dosage Adjustment Via Phone (anticoag Cl inic) Encounter Details Date Type Department Care Team (Latest Contact Info) Description 11/04/2023 6:30 AM EDT 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 Pharmacy Call Center [address] 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 PT/INR results, Coumadin dose instructions, and next PT/INR date communicated as noted by Pharmacist: Yes HOLLY KOLB inspector wire products 11/04/2023, 10:19 AM * Ayaka Fox RP - 11/04/2023 9:38 AM EDT Coumadin Clinic (region specific) Objective Current Warfarin Dose As of 11/04/2023 Warfarin maintenance plan: 7.5 mg (5 mg x 1.5) every Fri; 5 mg (5 mg x 1) all other days INR Result As of 11/04/2023 INR goal: 2.0-3.0 INR used for dosin.6 (11/03/2023) Assessment & Plan Warfarin Plan As of 11/04/2023 Full warfarin instructions: 7.5 mg every Fri; 5 mg all other days No change documented: Ayaka Fox RPh Next INR check: 11/17/2023 Repeat PT/INR in 2 week(s) Weekly dose: not changed Additional Dosing Information: Description Home machine fancy stitcher to contact patient with dose instructions as noted. Ayaka Fox RPh 11/04/2023, 9:39 AM documented in this encounter Plan of [...] Date/Time Associated Diagnosis Comments OUTSIDE LAB-PT/INR Routine 11/03/2023 documented in this encounter Results * OUTSIDE LAB-PT/INR (11/03/2023) INR-OUTSIDE LAB 2.6 History Per Patient LABORATORY documented in this encounter Visit Diagnoses Diagnosis Longstanding persistent atrial fibrillation (HCC)- Primary documented in this encounter Care Teams Solar Installation Manager Relationship Specialty Start Date End Date Jamey Koch MD [address] [place] [address] PCP - General 03/06/06 documented as of this encounter
--- OUTSIDE RECORDS SUMMARY | 2024-02-24 22:45 | External Medical Summary | Summary of Care ---
Author Name Unknown Organization [facility] Address [address] [place] [address] Phone [phone] Care Team Providers Care Terminal Makeup Operator Name Role Phone Jessica Regan MD Primary Care Provider +1- [phone] Reason for Visit * Reason Onset Date Comments Medication Refill 11/28/2023 Encounter Details Date Type Department Care Team (Late st Contact Info) Description 11/28/2023 Refill [facility] [address] [place] [address] Jessica Regan MD [address] [place] [address] Allergies No known active allergiesdocumented as of this encounter (statuses as of 11/28/2023) Medications Medication Sig Dispensed Refills Start Date [...] MG Oral Tablet (Coumadin)Indicati ons: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 180 Capsule 0 4 Active Metoprolol Succinate 50 MG Oral Capsule ER 24 Hour Sprinkle Take 50 mg by mouth in the morning and 50 mg in the evening. 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, [place] Atrial fibrillation 11/03/2012 Stasis dermatitis 03/03/2012 Dyslipidemia, goal LDL below 70 01/10/2012 documented as of this encounter (statuses as of 11/28/2023) Resolved Problems Problem Noted Date Diagnosed Date [...] as of this encounter (statuses as of 11/28/2023) Immunizations Name Administration Dates Next Due Hepatitis [...] encounter Miscellaneous Notes * Telephone Encounter - Cony Cason, [facility] - 11/28/2023 8:04 PM EDTSigned Prescriptions: Disp Refills Metoprolol Succinate 50 MG Oral Capsule ER*180 Ca*0 Sig: Take 50 mg by mouth in the morning and 50 mg in the evening.Authorizing Provider: JESSICA REGAN User: CONY CASON documented in this encounter Plan of Treatment Upcoming Encounters Date Type Department Care Team (Late st Contact Info) Description 12/02/2023 6:30 AM EDT 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 Pharmacy Call Center [address] [facility] [place] [address] [facility] [address] [facility] [place] [address] Health Maintenance Due Date Last Done Comments [...] filedocumented as of this encounter Care Teams Terminal Makeup Operator Relationship Specialty Start Date End Date Jessica Regan MD [address] [place] [address] PCP - General 03/06/06 documented as of this encounter
--- OUTSIDE RECORDS SUMMARY | 2024-02-24 22:45 | External Medical Summary | Summary of Care ---
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,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 TAKE ONE-HALF [...] goal of less than 7.0% ([facility]) TAKE 1 CAPSULE BY MOUTH ONCE [...] -- AHI 30.8, CPAP 8 cwp DME: LICENSED AND CERTIFIED MIDWIFE, [place] Atrial fibrillation 11/03/2012 Stasis dermatitis 03/03/2012 Dyslipidemia, [...] Telephone Encounter - Jessica Regan MD - 11/29/2023 12:48 PM EDTSigned Prescriptions: Disp Refills traMADol HCl ER 200 MG Oral Tablet Extende*30 Tab*0 Sig: Take 1Tablet by mouth in the morning.Authorizing Provider: JESSICA REGAN * Telephone Encounter - Vu Brown, [facility] - 11/29/2023 12:43 PM EDT Pending Prescriptions: Disp Refills traMADol HCl ER 200 MG Oral Tablet Extende*30 Tab*0 Sig: Take 1 Tablet by mouth in the morning. * Telephone Encounter - Vu Brown [facility] - 11/29/2023 12:42 PM EDT I have reviewed the patients controlled substance dispensing history in the Prescription Drug Monitoring Program in compliance with the [facility] regulations before prescribing a controlled substance. PDMP checked on 11/29/2023. Pending Prescriptions: Disp Refills traMADol HCl ER 200 MG Oral Tablet Extend*30 Tab*0 Sig: Take 1 Tablet by mouth in the morning. Last Visit: 01/01/2023 (in office), 02/05/2023 (telemedicine) Next Visit: Visit date not found Date medication was last filled: 11/01/2023 Date medication is due for refill: 11/30/2023 Pharmacy: [facility] [place] Is this request for a controlled substance? Yes and Urine Drug Screen Not completed Toxicology results: No results found. However, due to the size of the patient record, not all encounters were searched.Please check Results Review for a complete set of results. Please approve if appropriate. Thank you, Vu Brown, PharmD Clinical Pharmacist [facility] ([facility]) (Formerly Telepharmacy) [phone] 11/29/2023, 12:42 PM documented in this encounter Plan of Treatment Upcoming Encounters Date Type Department Care Team (Late st Contact Info) Description 12/02/2023 6:30 AM EDT 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 Pharmacy Call Center WB [address] [facility] [place] [address] [facility] [address] 60 [facility] [place] [address] Health Maintenance Due Date Last Done Comments [...] medications documented in this encounter Care Teams Bleach Mixer Relationship Specialty Start Date End Date Jessica Regan MD [address] [place] [address] PCP - General 03/06/06 documented as of this encounter
--- OUTSIDE RECORDS SUMMARY | 2024-02-24 22:45 | External Medical Summary | Summary of Care ---
Author Name Unknown Organization [facility] Address [address] [place] [address] Phone [phone] Care Team Providers Care Secretary Of State Name Role Phone Jamey Koch MD Primary Care Provider +1- [phone] Reason for Visit * Reason Comments Dosage Adjustment Via Phone (anticoag Cl inic) Encounter Details Date Type Department Care Team (Latest Contact Info) Description 12/02/2023 6:30 AM EDT 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 Pharmacy Call Center [address] [place] [address] [facility] [address] [place] [address] Atrial fibrillation, unspecified type (HCC)* Allergies No known active allergiesdocumented as of this encounter (statuses as of 12/02/2023) Medications Medication Sig Dispensed Refills Start Date [...] 7.5 MG Oral Tablet (Coumadin)Indicatio ns: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,skatesman current use of 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 therapy TAKE ONE-HALF [...] hemoglobin A1c goal of less than 7.0% ([facility]) TAKE 1 CAPSULE BY MOUTH ONCE [...] the evening. 180 Capsule 0 4 Active documented as of this encounter (statuses as of 12/02/2023) Active Problems Problem Noted Date Diagnosed Date [...] -- AHI 30.8, CPAP 8 cwp DME: CURING OVEN ATTENDANT, [place] Atrial fibrillation 11/03/2012 Stasis dermatitis 03/03/2012 Dyslipidemia, goal LDL below 70 01/10/2012 documented as of this encounter (statuses as of 12/02/2023) Resolved Problems Problem Noted Date Diagnosed Date [...] as of this encounter (statuses as of 12/02/2023) Immunizations Name Administration Dates Next Due Hepatitis [...] Progress Notes * Slava Espinoza CPhT - 12/02/2023 9:55 AM EDT Contacts Type Contact Phone/Fax 12/02/2023 09:54 AM EDT Phone (Outgoing) Candido Curry (Self) [phone] (M) Left Message Subjective Advised patient to contact 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 Clinic if any unusual bruising or bleeding, recent illness, changes in medication, or questions/concerns. PT/INR results, Coumadin dose instructions, and next PT/INR date communicated as noted by Pharmacist: Yes Slava Espinoza CPhT 12/02/2023, 9:55 AM * Ayaka Fox [facility] - 12/02/2023 9:20 AM EDT Images from the original note were not included. Coumadin Clinic (region specific) Objective Current Warfarin Dose As of 12/02/2023 Warfarin maintenance plan: 7.5 mg (5 mg x 1.5) every Fri; 5 mg (5 mg x 1) all other days INR Result As of 12/02/2023 INR goal: 2.0-3.0 INR used for dosin.7 (11/29/2023) Assessment & Plan Warfarin Plan As of 12/02/2023 Full warfarin instructions: 12/01: 10 mg; Otherwise 10 mg every Fri; 5 mg all other days Next INR check: 12/13/2023 Repeat PT/INR in 2 week(s) Weekly dose: increased Additional Dosing Information: Description Home taper machine to contact patient with dose instructions as noted. Ayaka Fox RPh 12/02/2023, 9:20 AM documented in this encounter Plan of [...] Date/Time Associated Diagnosis Comments OUTSIDE LAB-PT/INR Routine 11/29/2023 documented in this encounter Results * OUTSIDE LAB-PT/INR (11/29/2023) INR-OUTSIDE LAB 1.7 HOME FINGERSTIC K DEVICE History Per Patient LABORATORY HOME FINGERSTICK DEVICE documented in this encounter Visit Diagnoses Diagnosis Atrial fibrillation, unspecified type (HCC)- Primary documented in this encounter Care Teams Secretary Of State Relationship Specialty Start Date End Date Jamey Koch MD [address] [place] [address] PCP - General 03/06/06 documented as of this encounter
--- OUTSIDE RECORDS SUMMARY | 2024-02-24 22:46 | External Medical Summary | Summary of Care ---
Author Name Unknown Organization [facility] Address [address] [place] [address] Phone [phone] Care Team Providers Care Vice President Of Software Development Name Role Phone Jamey Koch MD Primary Care Provider +1- [phone] Reason for Visit * Reason Comments Dosage Adjustment Via Phone (anticoag Cl inic) Encounter Details Date Type Department Care Team (Latest Contact Info) Description 10/07/2023 6:30 AM EST 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 Pharmacy Call Center [address] [place] [address] [facility] [address] [place] [address] Longstanding persistent atrial fibrillation (HCC)* Allergies No known active allergiesdocumented as of this encounter (statuses as of 10/07/2023) Medications Medication Sig Dispensed Refills Start Date [...] MG Oral Tablet (Coumadin)Indicatio ns: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,intermediate manager current use of 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 therapy TAKE ONE-HALF [...] hemoglobin A1c goal of less than 7.0% ([facility]) TAKE 1 CAPSULE BY MOUTH ONCE DAILY [...] as of this encounter (statuses as of 10/07/2023) Active Problems Problem Noted Date Diagnosed Date [...] -- AHI 30.8, CPAP 8 cwp DME: PHOTOSTAT OPERATOR, [place] Atrial fibrillation 11/03/2012 Stasis dermatitis 03/03/2012 Dyslipidemia, goal LDL below 70 01/10/2012 documented as of this encounter (statuses as of 10/07/2023) Resolved Problems Problem Noted Date Diagnosed Date [...] as of this encounter (statuses as of 10/07/2023) Immunizations Name Administration Dates Next Due Hepatitis [...] as of this encounter Progress Notes * Debra Odonnell RPh - 10/07/2023 11:00 AM EST Contacts Type Contact Phone/Fax 10/04/2023 05:44 PM EST Fax (Incoming) 10/07/2023 11:00 AM EST Phone (Outgoing) Candido Curry (Self) [phone] (M) Left Message Subjective Advised patient to contact 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 Clinic if any unusual bruising or bleeding, recent illness, changes in medication, or questions/concerns. PT/INR results, Coumadin dose instructions, and next PT/INR date communicated as noted by Pharmacist: Yes Isela Bolton Wrapper Stitcher Debra Odonnell RPh 10/07/2023, 11:00 AM * Melissa Roberts RP - 10/07/2023 8:15 AM EST Coumadin Clinic (region specific) Objective Current Warfarin Dose As of 10/07/2023 Warfarin maintenance plan: 7.5 mg (5 mg x 1.5) every Fri; 5 mg (5 mg x 1) all other days INR Result As of 10/07/2023 INR goal: 2.0-3.0 INR used for dosin.6 (10/04/2023) Assessment & Plan Warfarin Plan As of 10/07/2023 Full warfarin instructions: 7.5 mg every Fri; 5 mg all other days No change documented: Melissa Roberts RPh Next INR check: 10/18/2023 Repeat PT/INR in 2 week(s) Weekly dose: not changed Additional Dosing Information: Description Home felt cutting machine operator to contact patient with dose instructions as noted. Melissa Roberts RPh 10/07/2023, 8:15 AM * Landy Massey industrial property appraiser - 10/04/2023 5:44 PM EST Patient Phone Numbers Received fax from [employer] for today's INR result of 2.6 Thank you, Landy Massey Line Erector Apprentice [facility] 10/04/2023,5:44 PM documented in this encounter Plan of Treatment Upcoming Encounters Date Type Department Care Team (Late st Contact Info) Description 10/21/2023 6:30 AM EST 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 Pharmacy Call Center WB [address] [place] [address] [facility], [facility] 58 60 [facility] [place] [address] Health Maintenance Due Date Last Done Comments COVID-19 Vaccine (#1) 1962 HIV Screening 1977 Hepatitis C Screening 02/23/1980 Colonoscopy 2007 Fecal Occult Blood Test 2007 Sigmoidoscopy 2007 Zoster Vaccines (1 of 2) 02/23/2012 Pneumococcal Vaccine: Pediatrics (0 to 5 Years) and At-Risk Patients (6 to 64 Years) (2 - PCV) 06/13/2013 06/13/2012 Diabetic Foot Exam 08/10/2016 08/10/2015, 1 09/12/2012, 10/03/2012, Additional history exists Albumin/Creatinine Ratio 12/18/2018 018, 08/10/2015, 07/30/2014, Additional history exists Depression Screening 03/03/2019 03/03/2018 Diabetic Eye Exam 08/10/2022 08/10/2021, , 10/20/2013, Additional history exists HbA1c 09/06/2022 03/06/2022, 10/24, 12/18/2017, Additional history exists GFR 05/28/2024 05/28/2023, 11/26, 12/22/2022, Additional history [...] Date/Time Associated Diagnosis Comments OUTSIDE LAB-PT/INR Routine 10/04/2023 documented in this encounter Results * OUTSIDE LAB-PT/INR (10/04/2023) INR-OUTSIDE LAB 2.6 10/04/2023 History Per Patient LABORATORY documented in this encounter Visit Diagnoses Diagnosis Longstanding persistent atrial fibrillation (HCC)- Primary documented in this encounter Care Teams Vice President Of Software Development Relationship Specialty Start Date End Date Jamey Koch MD [address] [place] [address] PCP - General 03/06/06 documented as of this encounter
--- OUTSIDE RECORDS SUMMARY | 2024-02-24 22:46 | External Medical Summary | Summary of Care ---
Author Name Unknown Organization [facility] Address [address] [place] [address] Phone [phone] Care Team Providers Care Oracle Data Warehouse Developer Name Role Phone J[place]y Koch MD Primary Care Provider +1- [phone] Encounter Details Date Type Department Care Team (Late st Contact Info) Description 10/18/2023 Result Scan Unspecified Department Ayaka Fox, [facility] [address] [place] [address] <No scans attached> Allergies No known active [...] 7.5 MG Oral Tablet (Coumadin)Indicatio ns: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,long-term current use of 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 therapy [...] -- AHI 30.8, CPAP 8 cwp DME: CAR HIKER, [place] Atrial fibrillation 11/03/2012 Stasis dermatitis 03/03/2012 Dyslipidemia, [...] (Latest Contact Info) Description 10/21/2023 6:30 AM EST 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 Pharmacy Call Center [address] [facility] [place] [address] [facility] 58 60 [facility] [place] [address] Longstanding persistent atrial fibrillation (HCC)* Health Maintenance Due Date Last Done Comments [...] Date/Time Associated Diagnosis Comments OUTSIDE LAB RESULTS 10/18/2023 documented in this encounter Results * OUTSIDE LAB RESULTS (10/18/2023) 10/18/2023 Ayaka Fox [facility] LABORATORY documented in this encounter Care Teams Oracle Data Warehouse Developer Relationship Specialty Start Date End Date Jamye Koch MD [address] [place], [place] [id number] PCP - General 03/06/06 documented as of this encounter
--- OUTSIDE RECORDS SUMMARY | 2024-02-24 22:46 | External Medical Summary | Summary of Care ---
Author Name Unknown Organization [facility] Address [address] [place] [address] Phone [phone] Care Team Providers Care Agricultural Produce Washer Name Role Phone Jamey Regan MD Primary Care Provider +1- [phone] Reason for Referral * Medication Prior Authorization - Closed Specialty Diagnoses / Procedures Referred By Shahbaz goldberg Referred To Contact Diagnoses Controlled substance agreement signed Jamey Regan MD [address] [place] [address] Referral ID Status Reason Start Date Expiration Date Visits Re quested Visits Authorized [id number] Closed [phone] Reason for Visit * Reason Comments eRx-Medication Refill Encounter Details Date Type Department Care Team (Late st Contact Info) Description 09/23/2023 Refill [facility] [address] [place] [address] Jamey Regan MD [address] [place] [address] Controlled substance agreement signed Allergies No known active allergiesdocumented as of this encounter (statuses as of 09/24/2023) Medications Medication Sig Dispensed Refills Start Date [...] MG Oral Tablet (Coumadin)Indicati ons: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,custodial current use of 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 therapy TAKE ONE-HALF TO ONE TABLET BY MOUTH DAILY DIRECTED BY ANTICOAG CLINIC 135 Tablet 3 02/21/20 22 Active Albuterol Sulfate HFA 108 (90 Base) MCG/ACT Inhalation Aerosol SolutionIndication s:Cough,PND (post-nasal drip) Inhale 2 Puffs by mouth in the morning and 2 Puffs at noon and 2 Puffs in the evening and 2 Puffs before bedtime. As needed for SOB and cough.. 18 g 3 10/25/19 23 Active Atorvastatin Calcium 40 MG Oral Tablet [...] MORNING 30 Tablet 0 09/24/19 24 Active traMADol HCl ER 200 MG Oral Tablet Extended Release 24 Hour (Ultram ER)Indications:Con trolled substance agreement signed Take 1 Tablet by mouth in the morning. 30 Tablet 0 08/18/20 23 024 Discontinued documented as of this encounter (statuses as of 09/24/2023) Active Problems Problem Noted Date Diagnosed Date [...] -- AHI 30.8, CPAP 8 cwp DME: SUPERVISOR ESTIMATOR AND DRAFTER, [place] Atrial fibrillation 11/03/2012 Stasis dermatitis 03/03/2012 Dyslipidemia, goal LDL below 70 01/10/2012 documented as of this encounter (statuses as of 09/24/2023) Resolved Problems Problem Noted Date Diagnosed Date [...] as of this encounter (statuses as of 09/24/2023) Immunizations Name Administration Dates Next Due Hepatitis [...] Telephone Encounter - Jamey Regan MD - 09/24/2023 12:41 PM ESTSigned Prescriptions: Disp Refills traMADol HCl ER 200 MG Oral Tablet Extende*30 Tab*0 Sig: TAKE 1TABLET BY MOUTH IN THE MORNINGAuthorizing Provider: JAMEY REGAN * Telephone Encounter - Pepe Gonzalez [facility] - 09/24/2023 11:10 AM ESTPending Prescriptions: Disp Refills traMADol HCl ER 200 MG Oral Tablet Extende*30 Tab*0 Sig: Take 1 Tablet by mouth in the morning. * Telephone Encounter - Pepe Gonzalez [facility] - 09/24/2023 11:10 AM EST I have reviewed the patients controlled substance dispensing history in the Prescription Drug Monitoring Program in compliance with the [facility] regulations before prescribing a controlled substance. PDMP checked on 09/24/2023. Pending Prescriptions: Disp Refills traMADol HCl ER 200 MG Oral Tablet Extende*30 Tab*0 Sig: Take 1 Tablet by mouth in the morning. Last Visit: 01/01/2023 (in office), 02/05/2023 (telemedicine) Next Visit: Visit date not found Date medication was last filled: 08-18-23 Date medication is due for refill: 09-16-23 [facility] [address] [address] Is this request for a controlled substance? and Urine Drug Screen Not completed Toxicology results: No results found. However, due to the size of the patient record, not all encounters were searched.Please check Results Review for a complete set of results. Please approve if appropriate. Thanks, Pepe Gonzalez, Mj.Ph. Clinical Pharmacist Telepharmacy [phone] [id number] 09/24/2023,11:10 AM documented in this encounter Plan of Treatment Upcoming Encounters Date Type Department Care Team (Late st Contact Info) Description 10/07/2023 6:30 AM EST 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 Pharmacy Call Center [address] [place] [address] [facility], [facility] [address] 60 [facility] [place] [address] Health Maintenance Due Date Last Done Comments [...] 12/18/2017, Additional history exists GFR 05/28/2024 05/28/2023, 04/, 12/22/2022, Additional history [...] medications documented in this encounter Care Teams Agricultural Produce Washer Relationship Specialty Start Date End Date Jamey Regan MD [address] [place] [address] PCP - General 03/06/06 documented as of this encounter
--- OUTSIDE RECORDS SUMMARY | 2024-02-24 22:46 | External Medical Summary | Summary of Care ---
Author Name Unknown Organization [facility] Address [address] [place] [address] Phone [phone] Care Team Providers Care Cover Inspector Name Role Phone Jamey Koch MD Primary Care Provider +1- [phone] Encounter Details Date Type Department Care Team (Late st Contact Info) Description 10/04/2023 Result Scan Unspecified Department Ayaka Fox, [facility] [address] [place] [address] <No scans attached> Allergies No known active allergiesdocumented as of this encounter (statuses as of 10/04/2023) Medications Medication Sig Dispensed Refills Start Date [...] 7.5 MG Oral Tablet (Coumadin)Indicatio ns: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,[facility] current use of 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 therapy TAKE ONE-HALF [...] hemoglobin A1c goal of less than 7.0% ([facility]) TAKE 1 CAPSULE BY MOUTH ONCE [...] as of this encounter (statuses as of 10/04/2023) Active Problems Problem Noted Date Diagnosed Date [...] -- AHI 30.8, CPAP 8 cwp DME: VISUAL JOURNALIST, [place] Atrial fibrillation 11/03/2012 Stasis dermatitis 03/03/2012 Dyslipidemia, goal LDL below 70 01/10/2012 documented as of this encounter (statuses as of 10/04/2023) Resolved Problems Problem Noted Date Diagnosed Date [...] as of this encounter (statuses as of 10/04/2023) Immunizations Name Administration Dates Next Due Hepatitis [...] AM EST 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 Pharmacy Call Center [address] [facility] [place] [address] [facility] [address] [place] [address] Longstanding persistent atrial fibrillation (HCC)* Health Maintenance [...] Date/Time Associated Diagnosis Comments OUTSIDE LAB RESULTS 10/04/2023 documented in this encounter Results * OUTSIDE LAB RESULTS (10/04/2023) 10/04/2023 Ayaka Fox [facility] LABORATORY documented in this encounter Care Teams Cover Inspector Relationship Specialty Start Date End Date Jamey Koch MD [address] [place] [address] PCP - General 03/06/06 documented as of this encounter
--- OUTSIDE RECORDS SUMMARY | 2024-02-24 22:46 | External Medical Summary | Summary of Care ---
Author Name Unknown Organization [facility] Address [address] [place] [address] Phone [phone] Care Team Providers Care Ambulance Driver Name Role Phone Jamey Koch MD Primary Care Provider +1- [phone] Reason for Visit * Reason Comments Dosage Adjustment Via Phone (anticoag Cl inic) Encounter Details Date Type Department Care Team (Latest Contact Info) Description 09/23/2023 6:30 AM EST 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 Pharmacy Call Center [address] [place] [address] [facility] [address] [place] [address] Longstanding persistent atrial fibrillation (HCC)* Allergies No known active allergiesdocumented as of this encounter (statuses as of 09/23/2023) Medications Medication Sig Dispensed Refills Start Date [...] mouth in the morning. 30 Tablet 0 3 Active documented as of this encounter (statuses as of 09/23/2023) Active Problems Problem Noted Date Diagnosed Date [...] -- AHI 30.8, CPAP 8 cwp DME: CYLINDER PRESS OPERATOR APPRENTICE, [place] Atrial fibrillation 11/03/2012 Stasis dermatitis 03/03/2012 Dyslipidemia, goal LDL below 70 01/10/2012 documented as of this encounter (statuses as of 09/23/2023) Resolved Problems Problem Noted Date Diagnosed Date [...] as of this encounter (statuses as of 09/23/2023) Immunizations Name Administration Dates Next Due Hepatitis [...] as of this encounter Progress Notes * Melissa Roberts RPh - 09/23/2023 9:01 AM EST Noted - thank you; no changes to warfarin dosing/monitoring plan at this time. Thanks, Melissa Roberts PharmD Clinical Pharmacist [facility] ([facility]) (Formerly [facility]) [phone] 09/23/2023 9:01 AM * Holly Kolb PHARM Tech - 09/23/2023 8:43 AM EST Contacts Type Contact Phone/Fax 09/23/2023 08:40 AM EST Phone (Outgoing) Candido Curry (Self) [phone] (M) Subjective Patient Findings Positives: Change in diet/appetite (patient has not been eating as much due to being sick.) Negatives: Signs/symptoms of bleeding, Change in health, Change in activity, Upcoming invasive procedure, Missed doses, Extra doses, Change in medications, Bruising Advised patient to contact 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 Clinic if any unusual bruising or bleeding, recent illness, changes in medication, or questions/concerns. PT/INR results, Coumadin dose instructions, and next PT/INR date communicated as noted by Pharmacist: Yes HOLLY KOLB psychiatric aide instructor 09/23/2023, 8:43 AM * Melissa Roberts RPh - 09/23/2023 8:31 AM EST Images from the original note were not included. Coumadin Clinic (region specific) Objective Current Warfarin Dose As of 09/23/2023 Warfarin maintenance plan: 5 mg (5 mg x 1) every day INR Result As of 09/23/2023 INR goal: 2.0-3.0 INR used for dosin.8 (09/21/2023) Assessment & Plan Warfarin Plan As of 09/23/2023 Full warfarin instructions: 09/23: 7.5 mg; Otherwise 7.5 mg every Fri; 5 mg all other days Next INR check: 10/05/2023 Repeat PT/INR in 2 week(s) Weekly dose: increased Additional Dosing Information: Description Home coal briquette machine operator to contact patient with dose instructions as noted. Melissa Roberts RPh 09/23/2023, 8:31 AM documented in this encounter Plan of [...] Date/Time Associated Diagnosis Comments OUTSIDE LAB-PT/INR Routine 09/21/2023 documented in this encounter Results * OUTSIDE LAB-PT/INR (09/21/2023) INR-OUTSIDE LAB 1.8 History Per Patient LABORATORY documented in this encounter Visit Diagnoses Diagnosis Longstanding persistent atrial fibrillation (HCC)- Primary documented in this encounter Care Teams Ambulance Driver Relationship Specialty Start Date End Date Jamey Koch MD [address] [place] [address] PCP - General 03/06/06 documented as of this encounter
--- OUTSIDE RECORDS SUMMARY | 2024-02-24 22:46 | External Medical Summary | Summary of Care ---
Author Name Unknown Organization [facility] Address [address] [place] [address] Phone [phone] Care Team Providers Care Associate Manager Name Role Phone Jamey Koch MD Primary Care Provider +1- [phone] Encounter Details Date Type Department Care Team (Late st Contact Info) Description 09/21/2023 Result Scan Unspecified Department Ayaka Fox, [facility] [address] [place] [address] <No scans attached> Allergies No known active [...] -- AHI 30.8, CPAP 8 cwp DME: THERMAL TECHNICIAN, [place] Atrial fibrillation 11/03/2012 Stasis dermatitis 03/03/2012 Dyslipidemia, [...] Date/Time Associated Diagnosis Comments OUTSIDE LAB RESULTS 09/21/2023 documented in this encounter Results * OUTSIDE LAB RESULTS (09/21/2023) 09/21/2023 Ayaka Fox [facility] LABORATORY documented in this encounter Care Teams Associate Manager Relationship Specialty Start Date End Date Jamey Koch MD [address] [place] [address] PCP - General 03/06/06 documented as of this encounter
--- OUTSIDE RECORDS SUMMARY | 2024-02-24 22:46 | External Medical Summary | Summary of Care ---
Author Name Unknown Organization [facility] Address [address] [place] [address] Phone [phone] Care Team Providers Care Gut Snatcher Name Role Phone Jamey Koch MD Primary Care Provider +1- [phone] Reason for Visit * Reason Comments Dosage Adjustment Via Phone (anticoag Cl inic) Encounter Details Date Type Department Care Team (Latest Contact Info) Description 09/09/2023 6:30 AM EST 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 Pharmacy Call Center [address] [place] [address] [facility] [address] [place] [address] Longstanding persistent atrial fibrillation (HCC)* Allergies No known active allergiesdocumented as of this encounter (statuses as of 09/09/2023) Medications Medication Sig Dispensed Refills Start Date [...] 7.5 MG Oral Tablet (Coumadin)Indicatio ns: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,halfway current use of 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 therapy [...] than 7.0% ([facility]) TAKE 1 CAPSULE BY MOUTH ONCE DAILY [...] as of this encounter (statuses as of 09/09/2023) Active Problems Problem Noted Date Diagnosed Date [...] -- AHI 30.8, CPAP 8 cwp 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: 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, [place] Atrial fibrillation 11/03/2012 Stasis dermatitis 03/03/2012 Dyslipidemia, goal LDL below 70 01/10/2012 documented as of this encounter (statuses as of 09/09/2023) Resolved Problems Problem Noted Date Diagnosed Date [...] as of this encounter (statuses as of 09/09/2023) Immunizations Name Administration Dates Next Due Hepatitis [...] as of this encounter Progress Notes * Jenniffer Suarez PHARM Tech - 09/09/2023 9:53 AM EST Contacts Type Contact Phone/Fax 09/07/2023 01:32 PM EST Fax (Incoming) 09/09/2023 09:52 AM EST Phone (Outgoing) Candido Curry (Self) [phone] (M) Left Message Subjective Advised patient to contact 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 Clinic if any unusual bruising or bleeding, recent illness, changes in medication, or questions/concerns. PT/INR results, Coumadin dose instructions, and next PT/INR date communicated as noted by Pharmacist: Yes CHERYLE ARGUELLES 09/09/2023, 9:53 AM * Lakeshia Arevalo [facility] - 09/09/2023 8:28 AM EST Images from the original note were not included. Coumadin Clinic (region specific) Objective Current Warfarin Dose As of 09/09/2023 Warfarin maintenance plan: 5 mg (5 mg x 1) every day INR Result As of 09/09/2023 INR goal: 2.0-3.0 INR used for dosin.6 (09/07/2023) Assessment & Plan Warfarin Plan As of 09/09/2023 Full warfarin instructions: 09/09: 10 mg; Otherwise 5 mg every day Next INR check: 09/20/2023 Repeat PT/INR in 2 week(s) Weekly dose: not changed Additional Dosing Information: Description Home cigarette machine operator to contact patient with dose instructions as noted. Lakeshia Arevalo RPh 09/09/2023, 8:28 AM * Landy Massey, lead custodian - 09/07/2023 1:33 PM EST Patient Phone Numbers Received fax from [facility] for today's INR result of 1.6 Thank you, Landy Massey Billet Straightener [facility] 09/07/2023,1:33 PM documented in this encounter Plan of [...] Date/Time Associated Diagnosis Comments OUTSIDE LAB-PT/INR Routine 09/07/2023 documented in this encounter Results * OUTSIDE LAB-PT/INR (09/07/2023) INR-OUTSIDE LAB 1.6 09/07/2023 History Per Patient LABORATORY documented in this encounter Visit Diagnoses Diagnosis Longstanding persistent atrial fibrillation (HCC)- Primary documented in this encounter Care Teams Gut Snatcher Relationship Specialty Start Date End Date Jamey Koch MD [address] [facility] [place] [address] PCP - General 03/06/06 documented as of this encounter
--- OUTSIDE RECORDS SUMMARY | 2024-02-24 22:46 | External Medical Summary | Summary of Care ---
Author Name Unknown Organization [facility] Address [address] [place] [address] Phone [phone] Care Team Providers Care Sledger Name Role Phone Jamey Koch MD Primary Care Provider +1- [phone] Encounter Details Date Type Department Care Team (Late st Contact Info) Description 09/07/2023 Result Scan Unspecified Department Ayaka Fox, [facility] [address] [place] [address] <No scans attached> Allergies No known active allergiesdocumented as of this encounter (statuses as of 09/07/2023) Medications Medication Sig Dispensed Refills Start Date [...] goal of less than 7.0% ([facility]) TAKE 1 CAPSULE BY MOUTH ONCE [...] as of this encounter (statuses as of 09/07/2023) Active Problems Problem Noted Date Diagnosed Date [...] -- AHI 30.8, CPAP 8 cwp 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, [place] Atrial fibrillation 11/03/2012 Stasis dermatitis 03/03/2012 Dyslipidemia, goal LDL below 70 01/10/2012 documented as of this encounter (statuses as of 09/07/2023) Resolved Problems Problem Noted Date Diagnosed Date [...] as of this encounter (statuses as of 09/07/2023) Immunizations Name Administration Dates Next Due Hepatitis [...] AM EST 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 Pharmacy Call Center [address] [place] [address] [facility] [address] [place] [address] Longstanding persistent atrial fibrillation (HCC)* Health Maintenance [...] Date/Time Associated Diagnosis Comments OUTSIDE LAB RESULTS 09/07/2023 documented in this encounter Results * OUTSIDE LAB RESULTS (09/07/2023) 09/07/2023 Ayaka Fox [facility] LABORATORY documented in this encounter Care Teams Sledger Relationship Specialty Start Date End Date Jamey Koch MD [address] [place] [address] PCP - General 03/06/06 documented as of this encounter
[2024-02-25] MEDS: PANTOprazole 40 MG TAB PO SCH (04:17)
[2024-02-25 06:29] LABS: Basophils # (auto) 0.05 K/uL (0.00-0.20); Basophils % (auto) 0.4 %; Eosinophils # (auto) 0.15 K/uL (0.00-0.50); Eosinophils % (auto) 1.2 %; Hemoglobin 11.6 g/dl (14.0-18.0); Immature Granulocytes # (auto) 0.13 K/uL (0.01-0.20); Immature Granulocytes % (auto) 1.1 %; Lymphocytes % (auto) 8.1 %; Mean Corpuscular Hemoglobin 27.7 pg (25.0-34.0); Mean Corpuscular Hgb Conc 30.5 g/dL (32.0-36.0); Mean Corpuscular Volume 90.7 fL (80.0-100.0); Mean Platelet Volume 11.5 fL (9.4-12.4); Monocytes # (auto) 1.65 K/uL (0.11-0.59); Monocytes % (auto) 13.4 %; Neutrophils # (auto) 9.29 K/uL (1.40-6.50); Neutrophils % (auto) 75.8 %; Platelet Count 290 K/uL (130-400); RDW Coefficient of Variation 12.8 % (11.5-14.5); RDW Standard Deviation 42.5 fL (36.4-46.3); Red Blood Count 4.19 M/uL (4.70-6.10); White Blood Count 12.27 K/ul (4.8-10.8)
[2024-02-25 06:55] LABS: INR 4.6 (0.9-1.1); Prothrombin Time 43.3 Seconds (9.0-12.0)
[2024-02-25 07:01] LABS: Albumin Level 2.3 gm/dl (3.4-5.0); Bilirubin,Total 0.6 mg/dl (0.2-1.0); Calcium 7.9 mg/dl (8.6-10.3); Magnesium 1.9 mg/dl (1.7-2.4)
[2024-02-25 07:07] LABS: Albumin Globulin Ratio 0.5 (0.9-2); BUN Creatinine Ratio 14.3 (10-20); Creatinine Clr Calc Pharmacy 75.7 ml/min; Est GFR (African American) 49.7 ml/min; Est GFR (Non-African American) 42.9 ml/min; Globulin 4.3 gm/dl (2.5-4.0); Total Protein 6.6 gm/dl (6.0-8.3)
[2024-02-25 07:30] LABS: Estimated Average Glucose 157 mg/dl; Hemoglobin A1C 7.1 % (4.5-5.6)
[2024-02-25] MEDS: ASPIRIN 81 MG CHEW PO SCH (08:00)
[2024-02-25] MEDS: allopurinoL 100 MG TAB PO SCH (08:00)
[2024-02-25] MEDS: ADVANCED PROBIOTIC 625 MG CAPSULE PO SCH (08:00)
[2024-02-25] MEDS ORDERED: TRAMADOL SCH (09:00)
[2024-02-25] MEDS ORDERED: TRAMADOL 200 MG PO SCH (09:00)
--- NOTE | 2024-02-25 09:49 | Gastrointestinal Consultation ---
Date of Consultation February 25, 2024 Assessment & Plan (1) Pancreatic mass: 64 year old male w/ history of chronic atrial fibrillation anticoagulated on warfarin, T2DM, HTN, chronic HFpEF, ROHIT noncompliant with CPAP, morbid obesity admitted with a month of gas, bloating, decreased appetite, nausea and weight loss, imaging showing 57 x 41 mm pancreatic tail soft tissue mass w/ numerous hepatic hypodensities He will need arranged for an urgent OP EUS within 1-2 weeks or to be transferred to a center capable of inpatient EUS. Alternatively, can consult IR to discuss if any of the hepatic lesions are able to be biopsies. Thank you for allowing us to participate in the care of this patient. Please call with any acute changes, questions or concerns. Please see addendum below with additional recommendation from my supervising physician. I spent a total of 60 minutes on the date of service in review of patient's record, and previously obtained information in person and appropriate medical visit, discussion and education of plan, with patient and/or caregiver, placing orders for tests/referral/procedures as medically necessary and documentation of pertinent clinical information in patient's medical records for their visit today. Supervising Physician Co-Signing Physician Notes I examined the patient and reviewed the medical record, laboratory data and imaging studies. I agree with the assessment and plan of care as suggested by the advanced practice provider. Very pleasant obese male who has lost a significant amount of weight over the last few months to a year on CT scan which I reviewed with radiology he has a pancreatic tail mass which is approximately 5 cm and he has multiple large metastasis to the liver which can even been seen on the noncontrast imaging I strongly suspect that he has a primary manage pancreatic cancer with mets to the liver his abdomen is obese soft no masses are appreciated but he is morbidly obese at the present time I would recommend 1. Consult IR for possible IR guided biopsy of liver mets to evaluate if patient has metastatic pancreatic cancer if IR cannot do biopsy then would consult interventional gastroenterology for EUS guided biopsy of pancreatic tail mass which has a good window from the stomach 2. Check CA 19-9 3. Consult oncology for further management of pancreatic tail mass with possible mets to the liver Thank you for allowing us to take part in the care of your patient History of Present Illness Reason for Consultation: abnormal CT scan ? pancreatic mass with liver mets Requesting Physician: Erik Attending Physician: Yao Valencia MD History of Present Illness 64 year old male with history of chronic atrial fibrillation anticoagulated on warfarin, T2DM, HTN, chronic HFpEF, ROHIT noncompliant with CPAP, morbid obesity who presents to ED at the referral of PCP due to general complaints and low blood pressure - admitted with lactic acidosis and suspected urinary sepsis. GI was asked to evaluate for abnormal CT scan concerning for a pancreatic mass and liver lesions. He notes he has had upper GI symptoms of abd pain, pressure, burping, decreased appetite and nausea for about a week. Denies emesis. He questions if he has had some weight loss but is not able to quantify a value. Suggests this has been ongoing over 2 years at least. He reports daily BMS, no black or bloody stools. No ETOH No tobacco CTAP 2023: Findings are concerning for malignancy with hepatic metastases, possibly involving the pancreatic tail mass as the primary lesion. Genny hepatis lymphadenopathy is also seen. 2. No acute abnormalities. 3. Diverticulosis without diverticulitis. 4. Nonobstructive nephrolithiasis. EGD: none Colonoscopy: reports a few years ago but I was not able to find record of Allergies Allergy/AdvReac Type Severity Reaction Status Date / Time No Known Allergies Allergy Mild Verified 02/24/24 16:50 Home Medications Medication Instructions Recorded Confirmed Type albuterol sulfate 90 mcg/actuation 2 puff inhalation QID PRN 11/11/22 02/24/24 History aerosol inhaler Shortness Of Breath and cough atorvastatin 40 mg tablet 40 mg PO QPM 11/11/22 02/24/24 History omeprazole 40 mg capsule,delayed 40 mg PO DAILYBB 11/11/22 02/24/24 History release furosemide 20 mg tablet (Lasix) 20 mg PO DAILY PRN edema #30 tabs 12/09/22 02/24/24 Rx spironolactone 25 mg tablet 12.5 mg (1/2 x 25 mg) PO QAM #30 12/09/22 02/24/24 Rx tabs tramadol 200 mg tablet,extended 200 mg PO QAM 12/12/22 02/24/24 History release 24 hr allopurinol 100 mg tablet 100 mg PO QAM 02/24/24 02/24/24 History aspirin 81 mg chewable tablet 81 mg PO DAILY 02/24/24 02/24/24 History (Children's Aspirin) diclofenac sodium 1 % topical gel 2 g EXT TID PRN Pain 02/24/24 02/24/24 History (Voltaren Arthritis Pain) metoprolol succinate 50 mg 50 mg PO AMPM 02/24/24 02/24/24 History tablet,extended release 24 hr warfarin 5 mg tablet 2.5 mg PO MOFR 02/24/24 02/24/24 History warfarin 5 mg tablet 5 mg PO SUTUWETHSA 02/24/24 02/24/24 History Patient History Medical History Chronic venous stasis Bacterial arthritis of both knees Surgical History H/O arthroscopic knee surgery Family History Other Heart disease Hypertension Social History Smoking Status: Never smoker Hx Alcohol Use: No Hx Substance Use: No Preferred Language: American Communication Ability: Effective Provisioning Specialist Required: No Beliefs That Will Affect Care: None Current Living Situation: Spouse and Family Feels Safe at Home: Yes Assistive Devices: Cane, CPAP, Walker and Other Review of Systems Review of Systems: All other findings negative except as noted in HPI. Physical Exam Constitutional: WD/WN, vitals as above Respiratory: normal respiratory effort, lungs clear to auscultation Cardiovascular: Rate/Rhythm: regular rate and regular rhythm Gastrointestinal (Abdomen): normal bowel sounds, soft, nontender, no hepatosplenomegaly Skin: no rashes, warm and dry Results & Data Vital Signs (Past 12 Hours) Vital Signs Temp Pulse Pulse Resp BP Pulse Ox O2 Del Method 02/25/24 08:09 Room Air 02/25/24 07:29 36.4 C L 91 H 18 146/72 H 94 Room Air 02/25/24 07:14 82 02/25/24 02:48 36.5 C 92 H 18 113/71 94 Room Air 02/24/24 23:39 36.4 C L 96 H 18 103/59 L 94 Room Air Laboratory Results 02/25/24 02/25/24 02/24/24 Range/Units 07:40 05:28 20:13 WBC 12.27 H (4.8-10.8) K/ul RBC 4.19 L (4.70-6.10) M/uL Hgb 11.6 L (14.0-18.0) g/dl Hct 38.0 L (42.0-52.0) % MCV 90.7 (80.0-100.0) fL MCH 27.7 (25.0-34.0) pg MCHC 30.5 L (32.0-36.0) g/dL RDW Std Deviation 42.5 (36.4-46.3) fL RDW Coeff of Zoila 12.8 (11.5-14.5) % Plt Count 290 (130-400) K/uL MPV 11.5 (9.4-12.4) fL Immature Gran % (Auto) 1.1 % Neut % (Auto) 75.8 % Lymph % (Auto) 8.1 % [place] % (Auto) 13.4 % Eos % (Auto) 1.2 % Baso % (Auto) 0.4 % Neut # (Auto) 9.29 H (1.40-6.50) K/uL Lymph # (Auto) 1.00 L (1.20-3.40) K/uL [place] # (Auto) 1.65 H (0.11-0.59) K/uL Eos # (Auto) 0.15 (0.00-0.50) K/uL Baso # (Auto) 0.05 (0.00-0.20) K/uL Immature Gran # (Auto) 0.13 (0.01-0.20) K/uL PT 43.3 H (9.0-12.0) Seconds INR 4.6 H (0.9-1.1) Sodium 136 (136-145) mmol/L Potassium 5.0 (3.5-5.1) mmol/L Chloride 102 (98-107) mmol/L Carbon Dioxide 29 (21-32) mmol/L Anion Gap 5 (3-11) BUN 24 H (6-23) mg/dl Creatinine 1.68 H (0.6-1.4) mg/dl Est Cr Clr Drug Dosing 75.7 ml/min Est GFR ( Amer) 49.7 ml/min Est GFR (Non-Af Amer) 42.9 ml/min BUN/Creatinine Ratio 14.3 (10-20) Glucose 135 H (70-99(Fasting)) mg/dl POC Glucose 148 H 92 (70-99) mg/dl Estimat Average Glucose 157 mg/dl Hemoglobin A1c 7.1 H (4.5-5.6) % Lactate (0.4-2.0) mmol/L Calcium 7.9 L (8.6-10.3) mg/dl Magnesium 1.9 (1.7-2.4) mg/dl Total Bilirubin 0.6 (0.2-1.0) mg/dl Direct Bilirubin (0-0.2) mg/dl AST 22 (13-39) U/L ALT 12 (7-52) U/L Alkaline Phosphatase 230 H (34-104) U/L Troponin I High Sens (0-20) pg/ml B-Natriuretic Peptide (0-100) pg/ml Total Protein 6.6 (6.0-8.3) gm/dl Albumin 2.3 L (3.4-5.0) gm/dl Globulin 4.3 H (2.5-4.0) gm/dl Albumin/Globulin Ratio 0.5 L (0.9-2) Procalcitonin (0-0.5) ng/ml Urine Color Urine Appearance (Clear) Urine pH (4.5-7.5) Ur Specific [place] (1.000-1.030) Urine Protein (Negative) Urine Glucose (UA) (Negative) Urine Ketones (Negative) Urine Blood (Negative) Urine Nitrite (Negative) Urine Bilirubin (Negative) Urine Urobilinogen (Negative) Ur Leukocyte Esterase (Negative) Urine WBC (Auto) (0-5) /hpf Urine RBC (Auto) (0-2) /hpf U Hyaline Cast (Auto) (0-2) /lpf U Epithel Cells (Auto) (0-2) /hpf Urine Bacteria (Auto) (None Seen) Hyaline Casts (None Presnt) /lpf Granular Casts (None Prsent) /lpf Anaplasma Smear Babesia Smear Babesia microti DNA PCR Lyme Disease Screen (Negative) 02/24/24 02/24/24 02/24/24 Range/Units 17:08 15:25 14:57 WBC (4.8-10.8) K/ul RBC (4.70-6.10) M/uL Hgb (14.0-18.0) g/dl Hct (42.0-52.0) % MCV (80.0-100.0) fL MCH (25.0-34.0) pg MCHC (32.0-36.0) g/dL RDW Std Deviation (36.4-46.3) fL RDW Coeff of Zoila (11.5-14.5) % Plt Count (130-400) K/uL MPV (9.4-12.4) fL Immature Gran % (Auto) % Neut % (Auto) % Lymph % (Auto) % [place] % (Auto) % Eos % (Auto) % Baso % (Auto) % Neut # (Auto) (1.40-6.50) K/uL Lymph # (Auto) (1.20-3.40) K/uL [place] # (Auto) (0.11-0.59) K/uL Eos # (Auto) (0.00-0.50) K/uL Baso # (Auto) (0.00-0.20) K/uL Immature Gran # (Auto) (0.01-0.20) K/uL PT 51.4 H (9.0-12.0) Seconds INR 5.5 H (0.9-1.1) Sodium (136-145) mmol/L Potassium (3.5-5.1) mmol/L Chloride (98-107) mmol/L Carbon Dioxide (21-32) mmol/L Anion Gap (3-11) BUN (6-23) mg/dl Creatinine (0.6-1.4) mg/dl Est Cr Clr Drug Dosing ml/min Est GFR ( Amer) ml/min Est GFR (Non-Af Amer) ml/min BUN/Creatinine Ratio (10-20) Glucose (70-99(Fasting)) mg/dl POC Glucose (70-99) mg/dl Estimat Average Glucose mg/dl Hemoglobin A1c (4.5-5.6) % Lactate 1.7 2.2 H* (0.4-2.0) mmol/L Calcium (8.6-10.3) mg/dl Magnesium (1.7-2.4) mg/dl Total Bilirubin (0.2-1.0) mg/dl Direct Bilirubin (0-0.2) mg/dl AST (13-39) U/L ALT (7-52) U/L Alkaline Phosphatase (34-104) U/L Troponin I High Sens (0-20) pg/ml B-Natriuretic Peptide (0-100) pg/ml Total Protein (6.0-8.3) gm/dl Albumin (3.4-5.0) gm/dl Globulin (2.5-4.0) gm/dl Albumin/Globulin Ratio (0.9-2) Procalcitonin (0-0.5) ng/ml Urine Color Dark Yellow Urine Appearance Turbid A (Clear) Urine pH 5.0 (4.5-7.5) Ur Specific [place] 1.022 (1.000-1.030) Urine Protein 2+ H (Negative) Urine Glucose (UA) Negative (Negative) Urine Ketones Trace H (Negative) Urine Blood 3+ H (Negative) Urine Nitrite Negative (Negative) Urine Bilirubin 1+ H (Negative) Urine Urobilinogen Negative (Negative) Ur Leukocyte Esterase Trace H (Negative) Urine WBC (Auto) 6-10 H (0-5) /hpf Urine RBC (Auto) >20 H (0-2) /hpf U Hyaline Cast (Auto) 6-10 H (0-2) /lpf U Epithel Cells (Auto) 6-10 H (0-2) /hpf Urine Bacteria (Auto) 2+ H (None Seen) Hyaline Casts Present A (None Presnt) /lpf Granular Casts Present A (None Prsent) /lpf Anaplasma Smear See Comment Babesia Smear See Comment Babesia microti DNA PCR Pending Lyme Disease Screen Negative (Negative) 02/24/24 Range/Units 12:51 WBC 17.44 H (4.8-10.8) K/ul RBC 4.83 (4.70-6.10) M/uL Hgb 13.5 L (14.0-18.0) g/dl Hct 43.2 (42.0-52.0) % MCV 89.4 (80.0-100.0) fL MCH 28.0 (25.0-34.0) pg MCHC 31.3 L (32.0-36.0) g/dL RDW Std Deviation 41.9 (36.4-46.3) fL RDW Coeff of Zoila 12.9 (11.5-14.5) % Plt Count 497 H (130-400) K/uL MPV 11.6 (9.4-12.4) fL Immature Gran % (Auto) 1.6 % Neut % (Auto) 78.6 % Lymph % (Auto) 8.1 % [place] % (Auto) 9.9 % Eos % (Auto) 1.3 % Baso % (Auto) 0.5 % Neut # (Auto) 13.71 H (1.40-6.50) K/uL Lymph # (Auto) 1.42 (1.20-3.40) K/uL [place] # (Auto) 1.73 H (0.11-0.59) K/uL Eos # (Auto) 0.22 (0.00-0.50) K/uL Baso # (Auto) 0.08 (0.00-0.20) K/uL Immature Gran # (Auto) 0.28 H (0.01-0.20) K/uL PT (9.0-12.0) Seconds INR (0.9-1.1) Sodium 135 L (136-145) mmol/L Potassium 4.5 (3.5-5.1) mmol/L Chloride 99 (98-107) mmol/L Carbon Dioxide 23 (21-32) mmol/L Anion Gap 13 H (3-11) BUN 26 H (6-23) mg/dl Creatinine 1.82 H (0.6-1.4) mg/dl Est Cr Clr Drug Dosing 68.8 ml/min Est GFR ( Amer) 45.1 ml/min Est GFR (Non-Af Amer) 38.9 ml/min BUN/Creatinine Ratio 14.3 (10-20) Glucose 136 H (70-99(Fasting)) mg/dl POC Glucose (70-99) mg/dl Estimat Average Glucose mg/dl Hemoglobin A1c (4.5-5.6) % Lactate (0.4-2.0) mmol/L Calcium 8.8 (8.6-10.3) mg/dl Magnesium 1.3 L (1.7-2.4) mg/dl Total Bilirubin 0.5 (0.2-1.0) mg/dl Direct Bilirubin 0.2 (0-0.2) mg/dl AST 27 (13-39) U/L ALT 15 (7-52) U/L Alkaline Phosphatase 285 H (34-104) U/L Troponin I High Sens 8.9 (0-20) pg/ml B-Natriuretic Peptide 144 H (0-100) pg/ml Total Protein 8.0 (6.0-8.3) gm/dl Albumin 2.8 L (3.4-5.0) gm/dl Globulin (2.5-4.0) gm/dl Albumin/Globulin Ratio (0.9-2) Procalcitonin 2.17 H (0-0.5) ng/ml Urine Color Urine Appearance (Clear) Urine pH (4.5-7.5) Ur Specific [place] (1.000-1.030) Urine Protein (Negative) Urine Glucose (UA) (Negative) Urine Ketones (Negative) Urine Blood (Negative) Urine Nitrite (Negative) Urine Bilirubin (Negative) Urine Urobilinogen (Negative) Ur Leukocyte Esterase (Negative) Urine WBC (Auto) (0-5) /hpf Urine RBC (Auto) (0-2) /hpf U Hyaline Cast (Auto) (0-2) /lpf U Epithel Cells (Auto) (0-2) /hpf Urine Bacteria (Auto) (None Seen) Hyaline Casts (None Presnt) /lpf Granular Casts (None Prsent) /lpf Anaplasma Smear Babesia Smear Babesia microti DNA PCR Lyme Disease Screen (Negative) PG Care Time/CCT Total # of Minutes Spent Total Time Spent with Patient: Total time spent is greater than 50% in coordination of care (as documented) at patient's floor/unit and/or counseling patient: Coding Level of Care Code 78604 IN/OBS CONSULT LVL 4,60M Diagnoses Pancreatic mass K86.89
--- NOTE | 2024-02-25 13:47 | Hospitalist Progress Note ---
Date of Service February 25, 2024 Assessment & Plan (1) Severe sepsis: (2) Pancreatic mass: (3) Chronic atrial fibrillation: (4) [facility] (current) use of 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s: (5) Chronic heart failure with preserved ejection fraction (HFpEF): (6) Hypomagnesemia: (7) Morbid obesity: (8) NONI (acute kidney injury): Plan 64-year-old male who has significant past medical history of chronic atrial fibrillation anticoagulated on warfarin, T2DM, HTN, chronic HFpEF, ROHIT noncompliant with CPAP, morbid obesity who presents to ED at the referral of PCP due to general complaints and low blood pressure. He is being managed for the following: Admitting imagings: CXR: no acute finding. CTAP: Concern for malignancy with hepatic metastasis, possibly involving the pancreatic tail mass as the primary lesion. Genny hepatis lymphadenopathy is also seen. No acute abnormalities. Diverticulosis without diverticulitis. Nonobstructive nephrolithiasis. CT chest: No evidence of pneumonia or other acute abnormality. Subcentimeter diaphragmatic lymph nodes are seen. SIRS positive: WBC 17.4, tachycardia present on admission. Increase blood lactic acid level: Lactate elevated at 2.2 at admission, status post IV fluid, resolved. No sepsis POA since no source of infection at presentation. 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 LA improved with IV fluid resuscitation in the ED. Patient denies any fever or cough or chest pain or pain Or sore throat or burning while passing urine or diarrheal events prior to arrival. Admitting imagings reviewed. See above. Anaplasma and Babesia smear negative, Lyme screen negative. Follow admitting blood and urine culture. Continue empiric daptomycin and Zosyn 02/23, if culture negative for 48 hours consider discontinuing antibiotic and monitoring off antibiotic. Continue with gentle IV fluids. Acute kidney injury: Baseline creatinine of 1, admitting creatinine of 1.82, CTAP as above. Continue with IV fluid, creatinine trending down. Labs in AM. Hepatic and pancreatic mass: Per admitting CTAP, see above. discussed with IR 02/24, plan for liver biopsy. Hold aspirin, last dose 02/24 AM. Hold Coumadin, once PT/INR less than 2, consider heparin drip with a plan to hold 6 hours prior to the procedure. Oncology consult for w/u guidance. GI on board. Supratherapeutic INR: INR at admission 5.5, no signs of bleeding/hemoglobin stable. No indication for reversal. INR trending down. Continue to hold Coumadin. Chronic atrial fibrillation: On long-term anticoagulation, continue metoprolol. 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 as above. Electrolyte abnormalities: Monitor replete potassium and magnesium. Other chronic abnormalities: Continue with/ resume home meds as and when able. Chronic HFpEF: Currently on IVF due to NONI, monitor closely for volume status. Low-salt diet. Daily weight. T2DM: Sliding scale insulin while in hospital, last A1c of 6.2 in 2021.He is currently off oral hypoglycemic as patient with substantial weight loss. ROHIT: Noncompliant with CPAP. Do CPAP at bedtime. Morbid obesity: Patient with substantial weight loss greater than 150 pounds, reports intentional weight loss. Continue to encourage diet/lifestyle changes. DVT prophylaxis: Currently therapeutic INR, plan to initiate heparin drip once subtherapeutic. Full code Disposition: PCU status, for liver biopsy, oncology eval pending. GI eval pending. Admission and Anticipated Discharge Date Admission Date: February 24, 2024 Subjective Patient was seen and examined at bedside. Patient was lying in bed, on room air, NAD, resting comfortably. Patient's significant other at bedside, who was also updated on plan of care. Patient reports bloating sensation, burping and gas with poor appetite for a month. Patient reports moving bowel 2 days ago. Patient denies fever/cough/chest pain/sore throat. Physical Exam Physical Exam: GENERAL: Alert and oriented x3. NAD, on RA. Morbid obesity class III. HEENT: No pallor, no icterus. Pupils equal, round and reactive to light. Oral mucosa moist. NECK: No JVD, no neck masses. HEART: S1 and S2 heard. irregular rate and rhythm. No murmur, no gallop. RESPIRATORY SYSTEM: Normal AP diameter. No accessory muscle use. No wheezing, no crackles. ABDOMEN: Soft, bowel sounds present, nontender, no distention. CENTRAL NERVOUS SYSTEM: No facial droop. Speech is clear. Obeys simple commands. Moves extremities. EXTREMITIES: trace ble edema, no erythema seen. Chronic ble skin changes noted. Results & Data Results & Data Vital Signs (Past 12 Hours) Vital Signs Temp Pulse Pulse Resp BP Pulse Ox O2 Del Method 02/25/24 11:16 36.7 C 88 18 115/75 94 Room Air 02/25/24 08:09 Room Air 02/25/24 07:29 36.4 C L 91 H 18 146/72 H 94 Room Air 02/25/24 07:14 82 02/25/24 02:48 36.5 C 92 H 18 113/71 94 Room Air
[2024-02-25] MEDS: DAPTOmycin 700 MG in SYRINGE 0 ML IV SCH (16:05)
--- NOTE | 2024-02-25 16:15 | Oncology Consultation ---
Date of Consultation February 25, 2024 Assessment & Plan (1) Acute UTI (urinary tract infection): (2) Severe sepsis: (3) Liver masses: Plan -Based on imaging, he probably has metastatic pancreatic cancer. Check CEA and CA-19-9. Recommend obtaining IR guided liver biopsy to confirm diagnosis. Patient and agreed with this plan. Thank you for this consult. Oncology will follow peripherally while patient is in the hospital. Please feel free to call if you have any other questions. History of Present Illness Reason for Consultation: guidance on w/u for hepatic and pancreatic lesions Attending Physician: Yao Valencia MD History of Present Illness 64 year old with multiple comorbidities as noted below who presented to the ER due to concern for sepsis after he was noted to be hypotensive. Workup for infection revealed UTI for which he is on IV antibiotics. CT abdomen and pelvis revealed Findings concerning for malignancy with hepatic metastases, possibly involving the pancreatic tail mass as the primary lesion. Genny hepatis lymphadenopathy is also seen Endorses abdominal distention, acid reflux, weight loss. Denies any family history of malignancy Allergies Allergy/AdvReac Type Severity Reaction Status Date / Time No Known Allergies Allergy Mild Verified 02/24/24 16:50 Home Medications Medication Instructions Recorded Confirmed Type albuterol sulfate 90 mcg/actuation 2 puff inhalation QID PRN 11/11/22 02/24/24 History aerosol inhaler Shortness Of Breath and cough atorvastatin 40 mg tablet 40 mg PO QPM 11/11/22 02/24/24 History omeprazole 40 mg capsule,delayed 40 mg PO DAILYBB 11/11/22 02/24/24 History release furosemide 20 mg tablet (Lasix) 20 mg PO DAILY PRN edema #30 tabs 12/09/22 02/24/24 Rx spironolactone 25 mg tablet 12.5 mg (1/2 x 25 mg) PO QAM #30 12/09/22 02/24/24 Rx tabs tramadol 200 mg tablet,extended 200 mg PO QAM 12/12/22 02/24/24 History release 24 hr allopurinol 100 mg tablet 100 mg PO QAM 02/24/24 02/24/24 History aspirin 81 mg chewable tablet 81 mg PO DAILY 02/24/24 02/24/24 History (Children's Aspirin) diclofenac sodium 1 % topical gel 2 g EXT TID PRN Pain 02/24/24 02/24/24 History (Voltaren Arthritis Pain) metoprolol succinate 50 mg 50 mg PO AMPM 02/24/24 02/24/24 History tablet,extended release 24 hr warfarin 5 mg tablet 2.5 mg PO MOFR 02/24/24 02/24/24 History warfarin 5 mg tablet 5 mg PO SUTUWETHSA 02/24/24 02/24/24 History Patient History Medical History Chronic venous stasis Bacterial arthritis of both knees Surgical History H/O arthroscopic knee surgery Family History Other Heart disease Hypertension Social History Smoking Status: Never smoker Hx Alcohol Use: No Hx Substance Use: No Preferred Language: Icelandic Communication Ability: Effective Cte Teacher Required: No Beliefs That Will Affect Care: None Current Living Situation: Spouse and Family Feels Safe at Home: Yes Assistive Devices: Cane, CPAP, Walker and Other Results & Data Vital Signs (Past 12 Hours) Vital Signs Temp Pulse Pulse Resp BP Pulse Ox O2 Del Method 02/25/24 15:09 36.6 C 95 H 18 120/77 95 Room Air 02/25/24 14:33 114 H 02/25/24 11:16 36.7 C 88 18 115/75 94 Room Air 02/25/24 08:09 Room Air 02/25/24 07:29 36.4 C L 91 H 18 146/72 H 94 Room Air 02/25/24 07:14 82
--- NOTE | 2024-02-26 05:55 | Electrocardiogram Report ---
Test Reason : Blood Pressure : / mmHG Vent. Rate : 098 BPM Atrial Rate : 000 BPM P-R Int : 000 ms QRS Dur : 084 ms QT Int : 338 ms P-R-T Axes : 000 020 -04 degrees QTc Int : 431 ms Poor data quality, interpretation may be adversely affected Atrial fibrillation Nonspecific T wave abnormality Abnormal ECG When compared with ECG of 12-DEC-2022 09:27, No significant change Confirmed by Omid Shankar ([id number]) on 02/26/2024 5:54:27 AM Referred By: Confirmed By:Omid Shankar
[2024-02-26 06:33] LABS: Basophils # (auto) 0.06 K/uL (0.00-0.20); Basophils % (auto) 0.4 %; Eosinophils # (auto) 0.18 K/uL (0.00-0.50); Eosinophils % (auto) 1.3 %; Hematocrit (blood only) 37.9 % (42.0-52.0); Hemoglobin 11.8 g/dl (14.0-18.0); Immature Granulocytes # (auto) 0.11 K/uL (0.01-0.20); Immature Granulocytes % (auto) 0.8 %; Lymphocytes # (auto) 1.21 K/uL (1.20-3.40); Lymphocytes % (auto) 8.7 %; Mean Corpuscular Hemoglobin 27.8 pg (25.0-34.0); Mean Corpuscular Hgb Conc 31.1 g/dL (32.0-36.0); Mean Corpuscular Volume 89.2 fL (80.0-100.0); Mean Platelet Volume 11.3 fL (9.4-12.4); Monocytes # (auto) 2.04 K/uL (0.11-0.59); Monocytes % (auto) 14.7 %; Neutrophils # (auto) 10.27 K/uL (1.40-6.50); Neutrophils % (auto) 74.1 %; Platelet Count 337 K/uL (130-400); RDW Coefficient of Variation 12.6 % (11.5-14.5); RDW Standard Deviation 40.7 fL (36.4-46.3); Red Blood Count 4.25 M/uL (4.70-6.10); White Blood Count 13.87 K/ul (4.8-10.8)
[2024-02-26 06:52] LABS: Albumin Globulin Ratio 0.5 (0.9-2); Albumin Level 2.4 gm/dl (3.4-5.0); BUN Creatinine Ratio 12.3 (10-20); Bilirubin,Total 0.9 mg/dl (0.2-1.0); Calcium 8.1 mg/dl (8.6-10.3); Creatinine Clr Calc Pharmacy 78.5 ml/min; Est GFR (African American) 51.9 ml/min; Est GFR (Non-African American) 44.8 ml/min; Globulin 4.5 gm/dl (2.5-4.0); Magnesium 1.5 mg/dl (1.7-2.4); Potassium 5.1 mmol/L (3.5-5.1); Total Protein 6.9 gm/dl (6.0-8.3)
[2024-02-26 06:57] LABS: Prothrombin Time 29.8 Seconds (9.0-12.0)
--- NOTE | 2024-02-26 09:04 | Gastroenterology Progress Note ---
Date of Service February 26, 2024 Assessment & Plan (1) Pancreatic mass: Plan: 64 year old male w/ history of chronic atrial fibrillation anticoagulated on warfarin, T2DM, HTN, chronic HFpEF, ROHIT noncompliant with CPAP, morbid obesity admitted with a month of gas, bloating, decreased appetite, nausea and weight loss, imaging showing 57 x 41 mm pancreatic tail soft tissue mass w/ numerous hepatic hypodensities He is scheduled for IR LB on Saturday. If for some reason this does not produce adequate sampling, he can then be arranged for an urgent OP EUS within 1-2 weeks or to be transferred to a center capable of inpatient EUS. Will sign off. Thank you for allowing us to participate in the care of this patient. Please call with any acute changes, questions or concerns. Please see addendum below with additional recommendation from my supervising physician. I spent a total of 40 minutes on the date of service in review of patient's record, and previously obtained information in person and appropriate medical visit, discussion and education of plan, with patient and/or caregiver, placing orders for tests/referral/procedures as medically necessary and documentation of pertinent clinical information in patient's medical records for their visit today. Admission and Anticipated Discharge Date Admission Date: February 24, 2024 Supervising Physician Co-Signing Physician Notes I examined the patient and reviewed the medical record, laboratory data and imaging studies. I agree with the assessment and plan of care as suggested by the advanced practice provider. Patient has a pancreatic tail mass suspicious for possible large mets to the liver patient has been evaluated by oncology and as per the note that he is getting a CT-guided biopsy on Saturday and they have also asked for a CEA and a CA 19-9 at the current time there is nothing much to offer from our standpoint agree with oncology plan and follow-up with oncology to get tissue samples and then treatment as well but the sample had discussion with patient and his thank you for allowing us to take part in the care of your patient please recall if there is any further questions Subjective Pt was seen and evaluated, chart reviewed. at bedside this AM who was updated on his care. Offers no new concerns at this time. Is tentatively scheduled for IR LB on Saturday due to his AC. Review of Systems Review of Systems: All other findings negative except as noted in HPI. Physical Exam Constitutional: WD/WN, vitals as above Respiratory: normal respiratory effort, lungs clear to auscultation Cardiovascular: Rate/Rhythm: regular rate and regular rhythm Gastrointestinal (Abdomen): normal bowel sounds, soft, nontender, no hepatosplenomegaly Skin: no rashes, warm and dry Results & Data Results & Data Vital Signs (Past 12 Hours) Vital Signs Temp Pulse Pulse Resp BP Pulse Ox O2 Del Method 02/26/24 08:05 102 H 02/26/24 07:35 36.6 C 110 H 18 145/86 H 93 Room Air 02/26/24 02:36 36.4 C L 96 H 18 104/69 93 Room Air 02/25/24 22:46 36.7 C 88 18 113/75 94 Room Air 02/25/24 22:05 113 H Laboratory Results 02/26/24 02/26/24 02/25/24 Range/Units 07:21 05:46 20:16 WBC 13.87 H (4.8-10.8) K/ul RBC 4.25 L (4.70-6.10) M/uL Hgb 11.8 L (14.0-18.0) g/dl Hct 37.9 L (42.0-52.0) % MCV 89.2 (80.0-100.0) fL MCH 27.8 (25.0-34.0) pg MCHC 31.1 L (32.0-36.0) g/dL RDW Std Deviation 40.7 (36.4-46.3) fL RDW Coeff of Zoila 12.6 (11.5-14.5) % Plt Count 337 (130-400) K/uL MPV 11.3 (9.4-12.4) fL Immature Gran % (Auto) 0.8 % Neut % (Auto) 74.1 % Lymph % (Auto) 8.7 % [place] % (Auto) 14.7 % Eos % (Auto) 1.3 % Baso % (Auto) 0.4 % Neut # (Auto) 10.27 H (1.40-6.50) K/uL Lymph # (Auto) 1.21 (1.20-3.40) K/uL [place] # (Auto) 2.04 H (0.11-0.59) K/uL Eos # (Auto) 0.18 (0.00-0.50) K/uL Baso # (Auto) 0.06 (0.00-0.20) K/uL Immature Gran # (Auto) 0.11 (0.01-0.20) K/uL PT 29.8 H (9.0-12.0) Seconds INR 3.0 H (0.9-1.1) Sodium 135 L (136-145) mmol/L Potassium 5.1 (3.5-5.1) mmol/L Chloride 100 (98-107) mmol/L Carbon Dioxide 29 (21-32) mmol/L Anion Gap 6 (3-11) BUN 20 (6-23) mg/dl Creatinine 1.62 H (0.6-1.4) mg/dl Est Cr Clr Drug Dosing 78.5 ml/min Est GFR ( Amer) 51.9 ml/min Est GFR (Non-Af Amer) 44.8 ml/min BUN/Creatinine Ratio 12.3 (10-20) Glucose 115 H (70-99(Fasting)) mg/dl POC Glucose 115 H 105 H (70-99) mg/dl Calcium 8.1 L (8.6-10.3) mg/dl Magnesium 1.5 L (1.7-2.4) mg/dl Total Bilirubin 0.9 (0.2-1.0) mg/dl AST 23 (13-39) U/L ALT 12 (7-52) U/L Alkaline Phosphatase 231 H (34-104) U/L Total Protein 6.9 (6.0-8.3) gm/dl Albumin 2.4 L (3.4-5.0) gm/dl Globulin 4.5 H (2.5-4.0) gm/dl Albumin/Globulin Ratio 0.5 L (0.9-2) Carcinoembryonic Ag (0-2.5) ng/ml CA 19-9 Antigen 02/25/24 02/25/24 02/25/24 Range/Units 16:24 15:59 11:15 WBC (4.8-10.8) K/ul RBC (4.70-6.10) M/uL Hgb (14.0-18.0) g/dl Hct (42.0-52.0) % MCV (80.0-100.0) fL MCH (25.0-34.0) pg MCHC (32.0-36.0) g/dL RDW Std Deviation (36.4-46.3) fL RDW Coeff of Zoila (11.5-14.5) % Plt Count (130-400) K/uL MPV (9.4-12.4) fL Immature Gran % (Auto) % Neut % (Auto) % Lymph % (Auto) % [place] % (Auto) % Eos % (Auto) % Baso % (Auto) % Neut # (Auto) (1.40-6.50) K/uL Lymph # (Auto) (1.20-3.40) K/uL [place] # (Auto) (0.11-0.59) K/uL Eos # (Auto) (0.00-0.50) K/uL Baso # (Auto) (0.00-0.20) K/uL Immature Gran # (Auto) (0.01-0.20) K/uL PT (9.0-12.0) Seconds INR (0.9-1.1) Sodium (136-145) mmol/L Potassium (3.5-5.1) mmol/L Chloride (98-107) mmol/L Carbon Dioxide (21-32) mmol/L Anion Gap (3-11) BUN (6-23) mg/dl Creatinine (0.6-1.4) mg/dl Est Cr Clr Drug Dosing ml/min Est GFR ( Amer) ml/min Est GFR (Non-Af Amer) ml/min BUN/Creatinine Ratio (10-20) Glucose (70-99(Fasting)) mg/dl POC Glucose 115 H 127 H (70-99) mg/dl Calcium (8.6-10.3) mg/dl Magnesium (1.7-2.4) mg/dl Total Bilirubin (0.2-1.0) mg/dl AST (13-39) U/L ALT (7-52) U/L Alkaline Phosphatase (34-104) U/L Total Protein (6.0-8.3) gm/dl Albumin (3.4-5.0) gm/dl Globulin (2.5-4.0) gm/dl Albumin/Globulin Ratio (0.9-2) Carcinoembryonic Ag 499.5 H (0-2.5) ng/ml CA 19-9 Antigen Pending PG Care Time/CCT Total # of Minutes Spent Total Time Spent with Patient: Total time spent is greater than 50% in coordination of care (as documented) at patient's floor/unit and/or counseling patient: Coding Level of Care Code 36770 SUB INP/OBS CARE 2/35MIN Diagnoses Pancreatic mass K86.89
[2024-02-26] MEDS: SODIUM CHLORIDE 0.9% 1,000 ML IV SCH (09:25)
[2024-02-26] MEDS: MAGNESIUM SULFATE / D5W 1 GM/100 ML BAG IV SCH (09:26)
--- NOTE | 2024-02-26 13:11 | Hospitalist Progress Note ---
Date of Service February 26, 2024 Assessment & Plan (1) Severe sepsis: (2) Pancreatic mass: (3) Chronic atrial fibrillation: (4) custodial (current) use of 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s: (5) Chronic heart failure with preserved ejection fraction (HFpEF): (6) Hypomagnesemia: (7) Morbid obesity: (8) NONI (acute kidney injury): Plan 64-year-old male who has significant past medical history of chronic atrial fibrillation anticoagulated on warfarin, T2DM, HTN, chronic HFpEF, ROHIT noncompliant with CPAP, morbid obesity who presents to ED at the referral of PCP due to general complaints and low blood pressure. He is being managed for the following: Admitting imagings: CXR: no acute finding. CTAP: Concern for malignancy with hepatic metastasis, possibly involving the pancreatic tail mass as the primary lesion. Genny hepatis lymphadenopathy is also seen. No acute abnormalities. Diverticulosis without diverticulitis. Nonobstructive nephrolithiasis. CT chest: No evidence of pneumonia or other acute abnormality. Subcentimeter diaphragmatic lymph nodes are seen. SIRS positive: WBC 17.4, tachycardia present on admission. Increase blood lactic acid level: Lactate elevated at 2.2 at admission, status post IV fluid, resolved. No sepsis POA since no source of infection at presentation. Patient with complaint of generalized illness/bloating/gas/belching/poor appetite for about a month time SOIL [employer] Increase blood lactic acid level likely secondary to hypotension secondary to poor appetite. LA improved with IV fluid resuscitation in the ED. Patient denies any fever or cough or chest pain or pain Or sore throat or burning while passing urine or diarrheal events prior to arrival. Admitting imagings reviewed. See above. Anaplasma and Babesia smear negative, Lyme screen negative. Follow admitting blood and urine culture. Continue empiric daptomycin and Zosyn 02/23, if culture negative for 48 hours consider discontinuing antibiotic and monitoring off antibiotic. Statin on hold. Continue with gentle IV fluids. Acute kidney injury: Baseline creatinine of 1, admitting creatinine of 1.82, CTAP as above. Continue with IV fluid, creatinine trending down. Labs in AM. Hepatic and pancreatic mass/Suspected pancreatic neoplasm with hepatic mets evidenced by CT imaging: Per admitting CTAP, see above. discussed with IR 02/24, plan for liver biopsy. Hold aspirin, last dose 02/24 AM. Hold Coumadin, once PT/INR less than 2, consider heparin drip with a plan to hold 6 hours prior to the procedure. Oncology evaled appreciate recs. GI on board. CEA 499.5, CA 19-9 pending. Supratherapeutic INR: INR at admission 5.5, no signs of bleeding/hemoglobin stable. INR trending down. Continue to hold Coumadin. see above. Chronic atrial fibrillation: On long-term anticoagulation, continue metoprolol. 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 as above. Electrolyte abnormalities: Monitor replete potassium and magnesium. Other chronic abnormalities: Continue with/ resume home meds as and when able. Chronic HFpEF: Currently on IVF due to NONI, monitor closely for volume status. Low-salt diet. Daily weight. T2DM: Sliding scale insulin while in hospital, last A1c of 6.2 in 2021.He is currently off oral hypoglycemic as patient with substantial weight loss. ROHIT: Noncompliant with CPAP. Do CPAP at bedtime. Morbid obesity: Patient with substantial weight loss greater than 150 pounds, reports intentional weight loss. Continue to encourage diet/lifestyle changes. DVT prophylaxis: Currently therapeutic INR, plan to initiate heparin drip once subtherapeutic. Full code Disposition: PCU status, for liver biopsy. Admission and Anticipated Discharge Date Admission Date: February 24, 2024 Subjective Patient was seen and examined at bedside. Patient was lying in bed, on room air, NAD, resting comfortably. Patient's significant other at bedside, who was also updated on plan of care. Patient reports bloating sensation, burping and gas with poor appetite, moved bowel today AM. Patient denies fever/cough/chest pain/sore throat. Physical Exam Physical Exam: GENERAL: Alert and oriented x3. NAD, on RA. Morbid obesity class III. HEENT: No pallor, no icterus. Pupils equal, round and reactive to light. Oral mucosa moist. NECK: No JVD, no neck masses. HEART: S1 and S2 heard. irregular rate and rhythm. No murmur, no gallop. RESPIRATORY SYSTEM: Normal AP diameter. No accessory muscle use. No wheezing, no crackles. ABDOMEN: Soft, bowel sounds present, nontender, no distention. CENTRAL NERVOUS SYSTEM: No facial droop. Speech is clear. Obeys simple commands. Moves extremities. EXTREMITIES: trace ble edema, no erythema seen. Chronic ble skin changes noted. Results & Data Results & Data Vital Signs (Past 12 Hours) Vital Signs Temp Pulse Pulse Resp BP Pulse Ox O2 Del Method 02/26/24 11:27 36.6 C 98 H 20 112/65 95 Room Air 02/26/24 10:21 Room Air 02/26/24 08:05 102 H 02/26/24 07:35 36.6 C 110 H 18 145/86 H 93 Room Air 02/26/24 02:36 36.4 C L 96 H 18 104/69 93 Room Air
[2024-02-26] MEDS: MELATONIN 3 MG TAB PO PRN (20:25)
[2024-02-27 06:28] LABS: Albumin Globulin Ratio 0.5 (0.9-2); Albumin Level 2.4 gm/dl (3.4-5.0); BUN Creatinine Ratio 11.5 (10-20); Bilirubin,Total 0.8 mg/dl (0.2-1.0); Calcium 8.1 mg/dl (8.6-10.3); Creatinine Clr Calc Pharmacy 81.3 ml/min; Est GFR (African American) 54.4 ml/min; Est GFR (Non-African American) 46.9 ml/min; Globulin 4.4 gm/dl (2.5-4.0); Magnesium 1.6 mg/dl (1.7-2.4); Potassium 5.1 mmol/L (3.5-5.1); Total Protein 6.8 gm/dl (6.0-8.3)
[2024-02-27 06:33] LABS: Basophils # (auto) 0.07 K/uL (0.00-0.20); Basophils % (auto) 0.6 %; Eosinophils # (auto) 0.18 K/uL (0.00-0.50); Eosinophils % (auto) 1.4 %; Hematocrit (blood only) 38.9 % (42.0-52.0); Hemoglobin 12.1 g/dl (14.0-18.0); Immature Granulocytes # (auto) 0.15 K/uL (0.01-0.20); Immature Granulocytes % (auto) 1.2 %; Lymphocytes # (auto) 1.09 K/uL (1.20-3.40); Lymphocytes % (auto) 8.6 %; Mean Corpuscular Hemoglobin 27.9 pg (25.0-34.0); Mean Corpuscular Hgb Conc 31.1 g/dL (32.0-36.0); Mean Corpuscular Volume 89.8 fL (80.0-100.0); Mean Platelet Volume 11.2 fL (9.4-12.4); Monocytes # (auto) 1.81 K/uL (0.11-0.59); Monocytes % (auto) 14.3 %; Neutrophils # (auto) 9.36 K/uL (1.40-6.50); Neutrophils % (auto) 73.9 %; Platelet Count 329 K/uL (130-400); RDW Coefficient of Variation 12.8 % (11.5-14.5); RDW Standard Deviation 41.4 fL (36.4-46.3); Red Blood Count 4.33 M/uL (4.70-6.10); White Blood Count 12.66 K/ul (4.8-10.8)
[2024-02-27 06:52] LABS: INR 2.3 (0.9-1.1)
[2024-02-27] MEDS: MAGNESIUM SULFATE / D5W 1 GM/100 ML BAG IV SCH (08:45)
--- NOTE | 2024-02-27 14:54 | Hospitalist Progress Note ---
Date of Service February 27, 2024 Assessment & Plan (1) Severe sepsis: (2) Pancreatic mass: (3) Chronic atrial fibrillation: (4) [facility] (current) use of 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s: (5) Chronic heart failure with preserved ejection fraction (HFpEF): (6) Hypomagnesemia: (7) Morbid obesity: (8) NONI (acute kidney injury): Plan 64-year-old male who has significant past medical history of chronic atrial fibrillation anticoagulated on warfarin, T2DM, HTN, chronic HFpEF, ROHIT noncompliant with CPAP, morbid obesity who presents to ED at the referral of PCP due to general complaints and low blood pressure. He is being managed for the following: Admitting imagings: CXR: no acute finding. CTAP: Concern for malignancy with hepatic metastasis, possibly involving the pancreatic tail mass as the primary lesion. Genny hepatis lymphadenopathy is also seen. No acute abnormalities. Diverticulosis without diverticulitis. Nonobstructive nephrolithiasis. CT chest: No evidence of pneumonia or other acute abnormality. Subcentimeter diaphragmatic lymph nodes are seen. SIRS positive: WBC 17.4, tachycardia present on admission. Increase blood lactic acid level: Lactate elevated at 2.2 at admission, status post IV fluid, resolved. No sepsis POA since no source of infection at presentation. Patient with complaint of generalized illness/bloating/gas/belching/poor appetite for about a month time [employer]END[employer]S [employer] Increase blood lactic acid level likely secondary to hypotension secondary to poor appetite. LA improved with IV fluid resuscitation in the ED. Patient denies any fever or cough or chest pain or pain Or sore throat or burning while passing urine or diarrheal events prior to arrival. Admitting imagings reviewed. See above. Anaplasma and Babesia smear negative, Lyme screen negative. Follow admitting blood and urine culture. No growth for 48 hours. 02/23 zosyn and 02/23 dapto dc'd on 02/26. Monitoring off antibiotic. Resume statin likely in few days. Held due to dapto use. Continue with gentle IV fluids. Acute kidney injury: Baseline creatinine of 1, admitting creatinine of 1.82, CTAP as above. Continue with IV fluid, creatinine trending down. Labs in AM. Hepatic and pancreatic mass/Suspected pancreatic neoplasm with hepatic mets evidenced by CT imaging: Per admitting CTAP, see above. discussed with IR 02/24, plan for liver biopsy. Hold aspirin, last dose 7/2 AM. Hold Coumadin, once PT/INR less than 2, consider heparin drip with a plan to hold 6 hours prior to the procedure. Oncology evaled appreciate recs. GI on board. CEA 499.5, CA 19-9 pending. Supratherapeutic INR: INR at admission 5.5, no signs of bleeding/hemoglobin stable. INR trending down. Continue to hold Coumadin. see above. Chronic atrial fibrillation: On long-term anticoagulation, continue metoprolol. 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 as above. Electrolyte abnormalities: Monitor replete potassium and magnesium. Other chronic abnormalities: Continue with/ resume home meds as and when able. Chronic HFpEF: Currently on IVF due to NONI, monitor closely for volume status. Low-salt diet. Daily weight. T2DM: Sliding scale insulin while in hospital, last A1c of 6.2 in 2021.He is currently off oral hypoglycemic as patient with substantial weight loss. ROHIT: Noncompliant with CPAP. Do CPAP at bedtime. Morbid obesity: Patient with substantial weight loss greater than 150 pounds, reports intentional weight loss. Continue to encourage diet/lifestyle changes. DVT prophylaxis: Currently therapeutic INR, plan to initiate heparin drip once s ubtherapeutic. Full code Disposition: PCU status, for liver biopsy. Admission and Anticipated Discharge Date Admission Date: February 24, 2024 Subjective Patient was seen and examined at bedside. Patient was lying in bed, on room air, NAD, resting comfortably. Patient's significant other at bedside, who was also updated on plan of care. Patient reports bloating sensation, burping and gas with poor appetite, moved bowel yesterday AM. Patient denies fever/cough/chest pain/sore throat. Physical Exam Physical Exam: GENERAL: Alert and oriented x3. NAD, on RA. Morbid obesity class III. HEENT: No pallor, no icterus. Pupils equal, round and reactive to light. Oral mucosa moist. NECK: No JVD, no neck masses. HEART: S1 and S2 heard. irregular rate and rhythm. No murmur, no gallop. RESPIRATORY SYSTEM: Normal AP diameter. No accessory muscle use. No wheezing, no crackles. ABDOMEN: Soft, bowel sounds present, nontender, no distention. CENTRAL NERVOUS SYSTEM: No facial droop. Speech is clear. Obeys simple commands. Moves extremities. EXTREMITIES: trace ble edema, no erythema seen. Chronic ble skin changes noted. Results & Data Results & Data Vital Signs (Past 12 Hours) Vital Signs Temp Pulse Pulse Resp BP Pulse Ox Pulse Ox 02/27/24 13:00 96 02/27/24 11:30 36.8 C 94 H 20 95 02/27/24 07:44 36.7 C 98 H 18 120/69 92 02/27/24 05:42 99 H O2 Del Method O2 Del Method 02/27/24 13:00 Room Air 02/27/24 11:30 Room Air 02/27/24 07:44 Room Air 02/27/24 05:42
[2024-02-28 06:12] LABS: Hematocrit (blood only) 40.7 % (42.0-52.0); Hemoglobin 12.5 g/dl (14.0-18.0); Mean Corpuscular Hemoglobin 27.6 pg (25.0-34.0); Mean Corpuscular Hgb Conc 30.7 g/dL (32.0-36.0); Mean Corpuscular Volume 89.8 fL (80.0-100.0); Mean Platelet Volume 11.1 fL (9.4-12.4); Platelet Count 342 K/uL (130-400); RDW Coefficient of Variation 12.9 % (11.5-14.5); Red Blood Count 4.53 M/uL (4.70-6.10); White Blood Count 14.41 K/ul (4.8-10.8)
[2024-02-28 06:29] LABS: BUN Creatinine Ratio 10.2 (10-20); Calcium 8.3 mg/dl (8.6-10.3); Est GFR (African American) 50.1 ml/min; Est GFR (Non-African American) 43.2 ml/min; Magnesium 1.6 mg/dl (1.7-2.4); Phosphorus 2.6 mg/dl (2.5-4.9)
[2024-02-28 06:46] LABS: INR 1.9 (0.9-1.1); Prothrombin Time 19.7 Seconds (9.0-12.0)
[2024-02-28] MEDS ORDERED: Heparin IV Adult Wt-Based Low-Dose *NO* INITIAL Bolus Protocol IV SCH (08:00)
[2024-02-28] MEDS: SODIUM CHLORIDE 0.9% 1,000 ML IV SCH (08:49)
[2024-02-28] MEDS: MAGNESIUM SULFATE / D5W 1 GM/100 ML BAG IV SCH (08:49)
[2024-02-28] MEDS: HEPARIN SODIUM/DEXTROSE 25,000 UNITS/500 ML BAG IV SCH (08:50)
[2024-02-28] MEDS: ONDANSETRON INJ 2 MG/ML 2 ML VIAL IV PRN (08:52)
--- NOTE | 2024-02-28 11:38 | Hospitalist Progress Note ---
Date of Service February 28, 2024 Assessment & Plan (1) Severe sepsis: (2) Pancreatic mass: (3) Chronic atrial fibrillation: (4) [facility] (current) use of 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s: (5) Chronic heart failure with preserved ejection fraction (HFpEF): (6) Hypomagnesemia: (7) Morbid obesity: (8) NONI (acute kidney injury): Plan 64-year-old male who has significant past medical history of chronic atrial fibrillation anticoagulated on warfarin, T2DM, HTN, chronic HFpEF, ROHIT noncompliant with CPAP, morbid obesity who presents to ED at the referral of PCP due to general complaints and low blood pressure. He is being managed for the following: Admitting imagings: CXR: no acute finding. CTAP: Concern for malignancy with hepatic metastasis, possibly involving the pancreatic tail mass as the primary lesion. Genny hepatis lymphadenopathy is also seen. No acute abnormalities. Diverticulosis without diverticulitis. Nonobstructive nephrolithiasis. CT chest: No evidence of pneumonia or other acute abnormality. Subcentimeter diaphragmatic lymph nodes are seen. SIRS positive: WBC 17.4, tachycardia present on admission. Increase blood lactic acid level: Lactate elevated at 2.2 at admission, status post IV fluid, resolved. No sepsis POA since no source of infection at presentation. 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 LA improved with IV fluid resuscitation in the ED. Patient denies any fever or cough or chest pain or pain Or sore throat or burning while passing urine or diarrheal events prior to arrival. Admitting imagings reviewed. See above. Anaplasma and Babesia smear negative, Lyme screen negative. Follow admitting blood and urine culture. No growth for 48 hours. 02/23 zosyn and 02/23 dapto dc'd on 02/26. Monitoring off antibiotic. Resume statin likely in few days. Held due to recent dapto use. Continue with gentle IV fluids. B/l Knee OA: pt states he was scheduled to get b/l knee injection coming Saturday, will need ortho consult come Saturday. Diabetes: was prediabetic, a1c of 7.1 this admission. Sliding scale. pt and his will think if they want to go route of lifestyle modification or wanted to be started on diabetic regimen before discharge, they will let us know as they decide. parent educator consult. Acute kidney injury: Baseline creatinine of 1, admitting creatinine of 1.82, CTAP as above. Continue with IV fluid, creatinine trending down/plateaued. Labs in AM. Consider nephro consult if worsening. Hepatic and pancreatic mass/Suspected pancreatic neoplasm with hepatic mets evidenced by CT imaging: Per admitting CTAP, see above. discussed with IR 02/24, plan for liver biopsy. Hold aspirin, last dose 02/24 AM. Coumadin on hold, PT/INT 1.9 today, Heparin drip will be initiated, Hold heparin drip about 6 hours prior to procedure on Saturday. Oncology evaled appreciate recs. GI on board. CEA 499.5, CA 19-9 pending. Supratherapeutic INR: INR at admission 5.5, resolved. for anticoagulation need, see above. Chronic atrial fibrillation: On long-term anticoagulation, continue metoprolol. 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 as above. Electrolyte abnormalities: Monitor replete potassium and magnesium. Other chronic abnormalities: Continue with/ resume home meds as and when able. Chronic HFpEF: Currently on IVF due to NONI, monitor closely for volume status. Low-salt diet. Daily weight. Reports has not neede lasix for long time. T2DM: Sliding scale insulin while in hospital, last A1c of 6.2 in 2021.He is currently off oral hypoglycemic as patient with substantial weight loss. ROHIT: Noncompliant with CPAP. Do CPAP at bedtime. Morbid obesity: Patient with substantial weight loss greater than 150 pounds, reports intentional weight loss. Continue to encourage diet/lifestyle changes. DVT prophylaxis: on heparin drip Full code Disposition: PCU status, for liver biopsy. Admission and Anticipated Discharge Date Admission Date: February 24, 2024 Subjective Patient was seen and examined at bedside. Patient was lying in bed, on room air, NAD, resting comfortably. Patient's significant other at bedside, who was also updated on plan of care. Patient reports bloating sensation, burping and gas with poor appetite, moved bowel yesterday. Some mild abdominal dicomfort in AM, which has been better by bedside exam. Patient denies fever/cough/chest pain/sore throat. Denies any pain or burn while passing urine. Physical Exam Physical Exam: GENERAL: Alert and oriented x3. NAD, on RA. Morbid obesity class III. HEENT: No pallor, no icterus. Pupils equal, round and reactive to light. Oral mucosa moist. NECK: No JVD, no neck masses. HEART: S1 and S2 heard. irregular rate and rhythm. No murmur, no gallop. RESPIRATORY SYSTEM: Normal AP diameter. No accessory muscle use. No wheezing, no crackles. ABDOMEN: Soft, bowel sounds present, nontender, no distention. CENTRAL NERVOUS SYSTEM: No facial droop. Speech is clear. Obeys simple commands. Moves extremities. EXTREMITIES: trace ble edema, no erythema seen. Chronic ble skin changes noted. Results & Data Results & Data Vital Signs (Past 12 Hours) Vital Signs Temp Pulse Pulse Resp BP Pulse Ox O2 Del Method 02/28/24 11:16 36.7 C 80 20 114/69 92 Room Air 02/28/24 08:00 92 H 02/28/24 07:24 36.7 C 78 20 107/72 91 Room Air 02/28/24 07:00 92 H 02/28/24 03:12 36.6 C 82 18 106/70 93 Room Air
[2024-02-28 15:28] LABS: ANTI-Xa, UFH(UnfractionatedHep < 0.10 IU/ml (0.3-0.7)
[2024-02-28] MEDS: HEPARIN SOD (PORCINE) 1000 UNIT/ML IV ONE (18:08)
[2024-02-29 00:02] LABS: ANTI-Xa, UFH(UnfractionatedHep 0.11 IU/ml (0.3-0.7)
[2024-02-29] MEDS: HEPARIN SOD (PORCINE) 1000 UNIT/ML IV ONE ×2 (00:35→16:49)
[2024-02-29] MEDS ORDERED: HEPARIN SOD (PORCINE) 1000 UNIT/ML IV ONE (01:15)
[2024-02-29] MEDS: FAMOTIDINE 20 MG TAB PO PRN (03:33)
[2024-02-29 07:25] LABS: INR 1.7 (0.9-1.1); Prothrombin Time 17.2 Seconds (9.0-12.0)
[2024-02-29 08:23] LABS: Babesia microti DNA Not Detected (Not Detected)
[2024-02-29] MEDS: MAGNESIUM CHLORIDE W/CALCIUM 64MG DELAYED REL TAB PO SCH (09:56)
[2024-02-29] MEDS ORDERED: DOCUSATE SODIUM 100 MG CAP PO PRN (10:39)
[2024-02-29] MEDS ORDERED: FAMOTIDINE 20 MG TAB PO PRN (10:40)
--- NOTE | 2024-02-29 12:54 | Hospitalist Progress Note ---
Date of Service February 29, 2024 Assessment & Plan (1) Severe sepsis: (2) Pancreatic mass: (3) Chronic atrial fibrillation: (4) 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 (current) use of 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s: (5) Chronic heart failure with preserved ejection fraction (HFpEF): (6) Hypomagnesemia: (7) Morbid obesity: (8) NONI (acute kidney injury): Plan 64-year-old male who has significant past medical history of chronic atrial fibrillation anticoagulated on warfarin, T2DM, HTN, chronic HFpEF, ROHIT noncompliant with CPAP, morbid obesity who presents to ED at the referral of PCP due to general complaints and low blood pressure. He is being managed for the following: SIRS WBC 17.4, tachycardia present on admission. Lactic acidosis No obvious source of infection --Blood cultures negative to date --Urine culture not contributory Received IV fluids Empiric antibiotics discontinued Afebrile Monitor off antibiotics Suspected metastatic pancreatic cancer Liver Mass --CT ABD:ndings are concerning for malignancy with hepatic metastases, possibly involving the pancreatic tail mass as the primary lesion. Genny hepatis lymphadenopathy is also seen. No acute abnormalities. Diverticulosis without diverticulitis. Nonobstructive nephrolithiasis. --CT Chest: No evidence of pneumonia or other acute abnormality. Subcentimeter prediaphragmatic lymph nodes are seen. Please see CT abdomen pelvis for findings of liver masses and pancreatic mass. --CEA: 499.5 --CA 19-9: 47 Plan for IR guided liver biopsy on Saturday Appreciate oncology input B/l Knee OA: pt states he was scheduled to get b/l knee injection ON Saturday Will consult orthopedics on Saturday for possible injection DM II HbA1c 7.1 Continue insulin per protocol Monitor BGs Acute kidney injury: Baseline Cr 1 Cr 1.8> 1.6 Avoid nephrotoxic agents as able Continue gentle IV fluids Monitor renal function Hypomagnesemia Replete electrolytes as needed Morbid obesity BMI 52 Supratherapeutic INR on presentation Chronic atrial fibrillation Hold Coumadin for biopsy Monitor INR 1.7 today Continue IV heparin while off Coumadin Continue metoprolol succinate 50 mg twice daily Other chronic abnormalities: Continue with/ resume home meds as and when able. Chronic HFpEF: Currently on IVF due to NONI, monitor volume status. Low-salt diet. Reports has not needed lasix for long time. ROHIT: Noncompliant with CPAP. CPAP at bedtime. DVT Px: IV Heparin Code Status Full code Admission and Anticipated Discharge Date Admission Date: February 24, 2024 Subjective Patient is seen and examined at bedside Reports having acid reflux overnight which currently resolved Also reports ongoing nausea but no vomiting Denies any abdominal pain, chest pain, dyspnea today Family at bedside Review of Systems Review of Systems: All systems reviewed & are unremarkable except as noted in Subjective Physical Exam Physical Exam: Physical Exam: Vitals signs as noted above General Appearance:Morbidly Obese, no apparent distress Head: normocephalic, Atraumatic Eyes: normal inspection, EOMI Neck: supple, Trachea midline Respiratory/Chest: Normal breath sounds, CTA, No accessory muscle use Cardiovascular: S1, S2, No murmur Abdomen/GI:Soft, Non tender, Bowel sounds present Extremities/Musculoskeletal:normal inspection, chronic venous stasis changes Neurologic/Psych:AAOX3, grossly no focal neurological deficits Skin: normal color, warm Results & Data Results & Data Vital Signs (Past 12 Hours) Vital Signs Temp Pulse Resp BP Pulse Ox O2 Del Method 02/29/24 11:20 36.8 C 106 H 18 129/75 94 Room Air 02/29/24 07:45 36.8 C 112 H 19 124/79 92 Room Air 02/29/24 03:00 36.8 C 98 H 16 110/78 92 Room Air
[2024-02-29 15:24] LABS: ANTI-Xa, UFH(UnfractionatedHep 0.17 IU/ml (0.3-0.7)
[2024-02-29] MEDS: ALUMINUM/MAGNESIUM/SIMETH (MAALOX MAX) 30 ML UDC PO PRN (22:37)
[2024-03-01] LABS: ANTI-Xa, UFH(UnfractionatedHep 0.28 IU/ml (0.3-0.7)
[2024-03-01] MEDS: SIMETHICONE 80 MG CHEW PO PRN (06:32)
[2024-03-01 07:27] LABS: BUN Creatinine Ratio 10.3 (10-20); Calcium 8.4 mg/dl (8.6-10.3); Creatinine Clr Calc Pharmacy 81.9 ml/min; Est GFR (African American) 54.8 ml/min; Est GFR (Non-African American) 47.3 ml/min; Magnesium 1.4 mg/dl (1.7-2.4); Potassium 4.9 mmol/L (3.5-5.1)
[2024-03-01 07:31] LABS: ANTI-Xa, UFH(UnfractionatedHep 0.28 IU/ml (0.3-0.7)
[2024-03-01 07:34] LABS: INR 1.4 (0.9-1.1); Prothrombin Time 14.8 Seconds (9.0-12.0)
[2024-03-01] MEDS: MAGNESIUM SULFATE / D5W 1 GM/100 ML BAG IV SCH (09:55)
--- NOTE | 2024-03-01 13:38 | Hospitalist Progress Note ---
Date of Service March 01, 2024 Assessment & Plan (1) Severe sepsis: (2) Pancreatic mass: (3) Chronic atrial fibrillation: (4) [facility] (current) use of 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s: (5) Chronic heart failure with preserved ejection fraction (HFpEF): (6) Hypomagnesemia: (7) Morbid obesity: (8) NONI (acute kidney injury): Plan 64-year-old male who has significant past medical history of chronic atrial fibrillation anticoagulated on warfarin, T2DM, HTN, chronic HFpEF, ROHIT noncompliant with CPAP, morbid obesity who presents to ED at the referral of PCP due to general complaints and low blood pressure. He is being managed for the following: SIRS WBC 17.4, tachycardia present on admission. Lactic acidosis No obvious source of infection --Blood cultures negative to date --Urine culture not contributory Received IV fluids Empiric antibiotics discontinued Afebrile Monitor off antibiotics Suspected metastatic pancreatic cancer Liver Mass --CT ABD:ndings are concerning for malignancy with hepatic metastases, possibly involving the pancreatic tail mass as the primary lesion. Genny hepatis lymphadenopathy is also seen. No acute abnormalities. Diverticulosis without diverticulitis. Nonobstructive nephrolithiasis. --CT Chest: No evidence of pneumonia or other acute abnormality. Subcentimeter prediaphragmatic lymph nodes are seen. Please see CT abdomen pelvis for findings of liver masses and pancreatic mass. --CEA: 499.5 --CA 19-9:47 Plan for IR guided liver biopsy Appreciate oncology input N.p.o. after midnight for biopsy tomorrow Needs follow-up with oncology on discharge B/l Knee OA: pt states he was scheduled to get b/l knee injection ON Saturday Will consult orthopedics on Saturday for possible injection DM II HbA1c 7.1 Continue insulin per protocol Monitor BGs Acute kidney injury: Baseline Cr 1 Cr 1.8>1.6>1.5 Avoid nephrotoxic agents as able received gentle IV fluids Monitor renal function Hypomagnesemia Replete electrolytes as needed Morbid obesity BMI 52 Supratherapeutic INR on presentation Chronic atrial fibrillation Hold Coumadin for biopsy Monitor INR 1.4 today Continue IV heparin while off Coumadin Continue metoprolol succinate 50 mg twice daily Other chronic abnormalities: Continue with/ resume home meds as and when able. Chronic HFpEF: Currently on IVF due to NONI, monitor volume status. Low-salt diet. Reports has not needed lasix for long time. ROHIT: Noncompliant with CPAP. CPAP at bedtime. DVT Px: IV Heparin Code Status Full code Admission and Anticipated Discharge Date Admission Date: February 24, 2024 Subjective Patient is seen and examined at bedside Continues to have nausea Denies any abdominal pain today Had bowel movement today Family at bedside Denies any abdominal pain, chest pain, dyspnea today Review of Systems Review of Systems: All systems reviewed & are unremarkable except as noted in Subjective Physical Exam Physical Exam: Physical Exam: Vitals signs as noted above General Appearance:Morbidly Obese, no apparent distress Head: normocephalic, Atraumatic Eyes: normal inspection, EOMI Neck: supple, Trachea midline Respiratory/Chest: Normal breath sounds, CTA, No accessory muscle use Cardiovascular: S1, S2, No murmur Abdomen/GI:Soft, Non tender, Bowel sounds present Extremities/Musculoskeletal:normal inspection, chronic venous stasis changes Neurologic/Psych:AAOX3, grossly no focal neurological deficits Skin: normal color, warm Results & Data Results & Data Vital Signs (Past 12 Hours) Vital Signs Temp Pulse Resp BP Pulse Ox O2 Del Method 03/01/24 12:11 36.7 C 98 H 18 116/73 94 Room Air 03/01/24 08:00 36.7 C 99 H 18 104/79 92 Room Air 03/01/24 03:52 36.6 C 81 18 128/70 93 Room Air Laboratory Results [facility] 03/01/24 06:45 Sodium 134 L Potassium 4.9 Chloride 98 Carbon Dioxide 31 BUN 16 Creatinine 1.55 H Glucose 114 H Calcium 8.4 L
[2024-03-01 16:12] LABS: ANTI-Xa, UFH(UnfractionatedHep 0.29 IU/ml (0.3-0.7)
[2024-03-01 23:32] LABS: ANTI-Xa, UFH(UnfractionatedHep 0.34 IU/ml (0.3-0.7)
[2024-03-02 06:25] LABS: Hematocrit (blood only) 37.7 % (42.0-52.0); Hemoglobin 11.6 g/dl (14.0-18.0); Mean Corpuscular Hemoglobin 27.7 pg (25.0-34.0); Mean Corpuscular Hgb Conc 30.8 g/dL (32.0-36.0); Mean Platelet Volume 11.4 fL (9.4-12.4); Platelet Count 312 K/uL (130-400); RDW Coefficient of Variation 12.8 % (11.5-14.5); RDW Standard Deviation 41.2 fL (36.4-46.3); Red Blood Count 4.19 M/uL (4.70-6.10); White Blood Count 16.79 K/ul (4.8-10.8)
[2024-03-02 06:48] LABS: INR 1.3 (0.9-1.1)
[2024-03-02 06:55] LABS: BUN Creatinine Ratio 9.9 (10-20); Calcium 8.4 mg/dl (8.6-10.3); Creatinine Clr Calc Pharmacy 89.4 ml/min; Est GFR (African American) 60.9 ml/min; Est GFR (Non-African American) 52.6 ml/min; Magnesium 1.6 mg/dl (1.7-2.4); Potassium 4.8 mmol/L (3.5-5.1)
--- NOTE | 2024-03-02 13:07 | Ultrasound Report ---
Ultrasound-guided liver lesion core biopsy INDICATION: Multiple hepatic lesions PROCEDURE: Procedure and risks were explained. Informed consent was obtained. A final timeout was com pleted. The abdomen was prepped and draped in sterile fashion. 1% lidocaine was utilized for skin ane sthesia. Utilizing ultrasound guidance, a 17-gauge coaxial needle was advanced into the left lobe liver lesion . Ultrasound images were obtained. An 18-gauge core biopsy needle was advanced, and 3 cores were obta ined and given to the pathologist. The coaxial needle was removed and Band-Aid applied. The patient t olerated the procedure well. Vital signs will be monitored postprocedure. IMPRESSION: Left lobe liver lesion core biopsy as above. Performed, dictated, and signed by Sanjay Crawford PA-C; to be co-signed by Dr. Fletcher Javier. Electronically signed by: Fletcher Javier M.D. 03/02/2024 4:55 PM
[2024-03-02] MEDS: fentaNYL citrate PF 100 MCG/2 ML VIAL ONE (13:24)
--- NOTE | 2024-03-02 15:11 | Hospitalist Progress Note ---
Date of Service March 02, 2024 Assessment & Plan (1) Severe sepsis: (2) Pancreatic mass: (3) Chronic atrial fibrillation: (4) intermediate (current) use of 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s: (5) Chronic heart failure with preserved ejection fraction (HFpEF): (6) Hypomagnesemia: (7) Morbid obesity: (8) NONI (acute kidney injury): Plan 64-year-old male who has significant past medical history of chronic atrial fibrillation anticoagulated on warfarin, T2DM, HTN, chronic HFpEF, ROHIT noncompliant with CPAP, morbid obesity who presents to ED at the referral of PCP due to general complaints and low blood pressure. He is being managed for the following: SIRS WBC 17.4, tachycardia present on admission. Lactic acidosis No obvious source of infection --Blood cultures negative to date --Urine culture not contributory Received IV fluids Empiric antibiotics discontinued Afebrile Monitor off antibiotics Suspected metastatic pancreatic cancer Liver Mass --CT ABD:findings are concerning for malignancy with hepatic metastases, possibly involving the pancreatic tail mass as the primary lesion. Genny hepatis lymphadenopathy is also seen. No acute abnormalities. Diverticulosis without diverticulitis. Nonobstructive nephrolithiasis. --CT Chest: No evidence of pneumonia or other acute abnormality. Subcentimeter prediaphragmatic lymph nodes are seen. Please see CT abdomen pelvis for findings of liver masses and pancreatic mass. --CEA: 499.5 --CA 19-9:47 Plan for IR guided liver biopsy as per Oncology Needs follow-up with oncology on discharge B/l Knee OA: pt states he was scheduled to get b/l knee injection ON Saturday will need to follow up with [facility] as outpatient to reschedule DM II HbA1c 7.1 Continue insulin per protocol Monitor BGs Acute kidney injury: Baseline Cr 1 Cr 1.8>1.6>1.5 Avoid nephrotoxic agents as able received gentle IV fluids Monitor renal function likely CKD, will need nephrology referral at dischage. Hypomagnesemia Replete electrolytes as needed Morbid obesity BMI 52 Supratherapeutic INR on presentation Chronic atrial fibrillation Hold Coumadin for biopsy Monitor INR 1.4 today will restart coumadin. Other chronic abnormalities: Continue with/ resume home meds as and when able. Chronic HFpEF: Currently on IVF due to NONI, monitor volume status. Low-salt diet. Reports has not needed lasix for long time. ROHIT: Noncompliant with CPAP. CPAP at bedtime. DVT Px: coumadin Code Status Full code Time spent evaluating patient, direct bedside care, chart review, placing orders, interpretation of diagnostic studies, discussion with consultants, patient, and family members, as well as other required patient management activities is 50 minutes Please note the above document was generated using voice recognition software. It may contain grammatical, syntax or spelling errors. Any formal questions or concerns about the content, text or information contained within the body of this dictation should be directly addressed to the provider for clarification Admission and Anticipated Discharge Date Admission Date: February 24, 2024 Subjective Patient seen and examined at bedside. Comfortable; not in distress. Denies fever, chills, chest pain, shortness of breath, abdominal pain or urinary symptoms. No significant overnight events Review of Systems Review of Systems: All systems reviewed & are unremarkable except as noted in Subjective Physical Exam Physical Exam: Physical Exam: Vitals signs as noted above General Appearance:Morbidly Obese, no apparent distress Head: normocephalic, Atraumatic Eyes: normal inspection, EOMI Neck: supple, Trachea midline Respiratory/Chest: Normal breath sounds, CTA, No accessory muscle use Cardiovascular: S1, S2, No murmur Abdomen/GI:Soft, Non tender, Bowel sounds present Extremities/Musculoskeletal:normal inspection, chronic venous stasis changes Neurologic/Psych:AAOX3, grossly no focal neurological deficits Skin: normal color, warm Results & Data Results & Data Vital Signs (Past 12 Hours) Vital Signs Temp Pulse Resp BP Pulse Ox O2 Del Method 03/02/24 12:14 98 H 18 109/76 93 Room Air 03/02/24 11:44 101 H 18 101/63 91 Room Air 03/02/24 11:39 36.6 C 93 H 18 111/77 94 Room Air 03/02/24 11:14 111 H 18 111/77 91 Room Air 03/02/24 10:38 100 H 18 117/82 94 Room Air 03/02/24 10:14 36.7 C 97 H 18 113/80 96 Room Air 03/02/24 07:46 36.8 C 102 H 18 113/72 93 Room Air
[2024-03-02] MEDS: WARFARIN SOD 2.5 MG TAB PO SCH (16:17)
[2024-03-03 06:41] LABS: Basophils # (auto) 0.08 K/uL (0.00-0.20); Basophils % (auto) 0.4 %; Eosinophils # (auto) 0.17 K/uL (0.00-0.50); Eosinophils % (auto) 0.9 %; Hematocrit (blood only) 38.7 % (42.0-52.0); Immature Granulocytes # (auto) 0.34 K/uL (0.01-0.20); Immature Granulocytes % (auto) 1.9 %; Lymphocytes % (auto) 7.1 %; Mean Corpuscular Volume 90.2 fL (80.0-100.0); Mean Platelet Volume 11.6 fL (9.4-12.4); Monocytes # (auto) 2.39 K/uL (0.11-0.59); Monocytes % (auto) 13.1 %; Neutrophils # (auto) 14.01 K/uL (1.40-6.50); Neutrophils % (auto) 76.6 %; Platelet Count 325 K/uL (130-400); RDW Coefficient of Variation 13.3 % (11.5-14.5); RDW Standard Deviation 43.3 fL (36.4-46.3); Red Blood Count 4.29 M/uL (4.70-6.10); White Blood Count 18.29 K/ul (4.8-10.8)
[2024-03-03 07:05] LABS: INR 1.3 (0.9-1.1); Prothrombin Time 14.1 Seconds (9.0-12.0)
--- NOTE | 2024-03-03 15:11 | Discharge Summary ---
Date of Service March 03, 2024 Admission HPI Per Admitting Provider This is a 64-year-old male who has significant past medical history of chronic atrial fibrillation anticoagulated on warfarin, T2DM, HTN, chronic HFpEF, ROHIT noncompliant with CPAP, morbid obesity who presents to ED at the referral of PCP due to general complaints and low blood pressure. is at bedside who helps elicit history. Patient's outpatient records were reviewed. Of significance he was seen recently 3 different times in November, December and January for upper respiratory-like symptoms. In November he completed a course of azithromycin and prednisone, in December he completed a course of doxycycline, Singulair, prednisone and albuterol and most recently in January he completed a course of Augmentin and prednisone. This was all due to upper respiratory symptoms and cough that gradually improved, but did not fully resolved. After his last round of antibiotics his symptoms completely resolved. His last echocardiogram was October 2022 which revealed a normal LV systolic function, grossly normal LV chamber size with significant limited study due to body habitus. Today he complains of increased gas and belching. He feels nauseated. This has been going on for at least a week and seems to be getting worse. He is having abdominal pain that is located in the Center. He has not had anything to eat today. He occasionally gets heart burn. Denies chest pain, sob, dysuria, increased urg with urination, hematuria, melena or hematochezia. He denies any known insect or tick bites. He denies f/c/s or rigors. He is not very active and stays indoors most time. He is very tired lately. He did have a colonoscopy about 1-2 years and was reported as normal. He denies every have upper endoscopy in paste. He denies any sick contacts. He has no recent travel. His denies any blood in the stool, but states his stools have been different the last 2 weeks. He has no been going very frequently. He used to be 585lbs. He is now in the 300s over the last 2 years. He went on a diet and cut out soda and tries to watch what he eats. He has been watching with diet. He mostly drinks water and ice tea. Over the last week he has not had a lot of eat/drink. He denies smoking or alcohol use. He denies any elicit drug use. Admission Exam Per Admitting Provider General: Morbidly obese male, sick looking, lying comfortably in bed, not in acute distress, on room air HEENT: EOMI, OBI, MMM Chest: Decreased breath sounds bilaterally, no wheezes or crackles CVS: Irregular rate and rhythm Abdomen: Soft, non tender, distended, normal bowel sounds Neuro: Awake, alert, oriented, conversing well, non focal Extremities: Chronic venous stasis changes in legs Principal Diagnosis Suspected metastatic pancreatic cancer Liver Mass Discharge Exam Physical Exam: Vitals signs as noted above General Appearance:Morbidly Obese, no apparent distress Head: normocephalic, Atraumatic Eyes: normal inspection, EOMI Neck: supple, Trachea midline Respiratory/Chest: Normal breath sounds, CTA, No accessory muscle use Cardiovascular: S1, S2, No murmur Abdomen/GI:Soft, Non tender, Bowel sounds present Extremities/Musculoskeletal:normal inspection, chronic venous stasis changes Neurologic/Psych:AAOX3, grossly no focal neurological deficits Skin: normal color, warm Discharge Data Allergies Allergy/AdvReac Type Severity Reaction Status Date / Time No Known Allergies Allergy Mild Verified 02/24/24 16:50 Consultations 02/24/24 16:13 ED Decision to Admit Stat 02/24/24 17:16 Consult Gastroenterology Routine 02/25/24 13:52 Consult Oncology Routine Ordered Studies 02/24/24 14:39 CT Abd and Pelvis [CT abd pelvis wo con] Stat 02/24/24 17:17 CT chest diagnostic wo con Stat 03/02/24 00:00 IR biopsy liver US Routine Hospital Course (1) Severe sepsis: (2) Pancreatic mass: (3) Chronic atrial fibrillation: (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 CT abdomen on admission showed findings concerning for pancreatic tail mass with hepatic metastasis. Patient underwent infectious workup for leukocytosis, low blood pressure and tachycardia. He was also placed on empiric antibiotics. Antibiotics were later discontinued after blood cultures were negative. Hematology was consulted for comanagement; patient was recommended to have IR guided liver biopsy. Patient underwent IR guided liver biopsy on March 02, 2024 At discharge, patient was recommended to follow-up with his PCP, oncology for biopsy results. He was also found to have elevated creatinine level of from 1.5 which is above his previous baseline. It remained stable throughout the hospitalization. Patient will follow-up with PCP and obtain nephrology referral for further evaluation. Please note the above document was generated using voice recognition software. It may contain grammatical, syntax or spelling errors. Any formal questions or concerns about the content, text or information contained within the body of this dictation should be directly addressed to the provider for clarification Total Time Total Time Spent Total Time Spent (In Minutes): 34 Total Time Includes: Examination of the Patient, Discharge Planning, Medication Reconciliation, Communication With Other Providers and Other Discharge Plan Discharge Items Patient Disposition: Home - Self-Care Reason For Visit: SEPSIS, NONI Discharge Diagnosis: Suspected metastatic pancreatic cancer Activity: Resume your previous activity Non-emergency contact: Primary Care Provider Call non-emergency contact if: you have any medication questions and your symptoms worsen Follow-up/Referrals: Jamey Koch MD [Primary Care Provider] - (Date & Time 03/05/2024 3:00 PM Provider Jamey Koch MD [facility] ) Sonal Gibbs MD [Physician] - (The [facility] is aware of your discharge. Dr Gibbs's office will contact you for a follow up appointment. Should you not receive a timely call, please call the office to schedule a hospital follow up appointment.) Diet: Regular Addtl Attending Provider Instructions: You were found to have findings concerning of malignancy with hepatic metastasis possibly from pancreas. You underwent biopsy of liver lesion on March 02, 2024. Please follow-up with Dr. Gibbs from [facility] regarding the results. They will call you with an appointment. During the hospitalization, your kidney numbers were found to be on a higher side from your baseline. They remained stable throughout the hospitalization. Please follow-up with your primary care doctor and obtain nephrology referral for further workup for possible chronic kidney disease. Please follow-up with the anticoagulation clinic to make sure your INR is within therapeutic range. Pending Studies at Discharge: No Stand-Alone Forms: My [facility], Smoking Cessation Medications and DC Order Prescriptions: Continued tramadol 200 mg tablet extended release 24 hr 200 mg PO QAM atorvastatin 40 mg tablet 40 mg PO QPM albuterol sulfate 90 mcg/actuation HFA aerosol inhaler 2 puff INHALATION QID PRN (Reason: Shortness Of Breath and cough) omeprazole 40 mg capsule,delayed release(DR/EC) 40 mg PO DAILYBB spironolactone 25 mg Tablet 12.5 mg PO QAM Qty: 30 0RF furosemide [Lasix] 20 mg tablet 20 mg PO DAILY PRN (Reason: edema) Qty: 30 0RF allopurinol 100 mg tablet 100 mg PO QAM metoprolol succinate 50 mg tablet extended release 24 hr 50 mg PO AMPM diclofenac sodium [Voltaren Arthritis Pain] 1 % gel 2 g EXT TID PRN (Reason: Pain) warfarin 5 mg tablet 5 mg PO SUTUWETHSA aspirin [Children's Aspirin] 81 mg Tablet,Chewable 81 mg PO DAILY Rx Instructions: take with food warfarin 5 mg tablet 2.5 mg PO MOFR Discharge Orders: Discharge Order (Routine); Ordered 03/03/24 Ordered By: Rell Garza Admission Data Admit Date/Time: 02/24/24 16:22 Attending Provider: Rell Garza Admit Provider: Jeremias Eckert Primary Care Provider: Jamey Kcoh Other Providers: Jeremias Eckert; Levi Pickett Jr; Sonal Gibbs Other Interventions: Discharge Summary Assessment (RN) Last Done: 03/03/24 12:06
[2024-03-03] MEDS ORDERED: WARFARIN SOD 5 MG TAB PO SCH (16:00)
--- NOTE | 2024-03-04 11:19 | Coding Query ---
SEPSIS To promote full compliance with coding requirements relating to patient care, physician participation is requested in all cases of extruding press adjuster uncertainty. Please assist us with the question(s) below: In responding to this query, please exercise your independent professional judgement. The fact that a question is asked does not imply that any particular answer is desired or expected. We appreciate your clarification on this issue. The medical record reflects the following clinical findings: Pt adm with bloating,severe sepsis. 03/03 progress note mentioned ruled out due to no infectious source found. DS documented Severe Sepsis. Please check below if applicable the diagnosis that was treated during this inpatient stay. Pt with pancreatic cancer, await path report for liver biopsy. Thanks for your help. Zackary Medina, [facility] ____ ( )Bacteremia (Nonspecific laboratory finding of bacteria in the blood) Specify Organism ( ) Present on Admission () Not present on admission (X) Unable to clinically determine ( ) Septicemia (Systemic disease associated with the presence of pathogenic microorganisms in the blood): Specify Organism ( ) Present on Admission ( ) Not present on admission ( X) Unable to clinically determine ( ) Sepsis Specify Organism Specify Associated Condition/Diagnosis ( ) Present on Admission ( ) Not present on admission ( X) Unable to clinically determine ( ) Severe Sepsis (Sepsis associated with acute organ dysfunction) Specify Organism Specify Associated Condition/Diagnosis ( ) Present on Admission ( ) Not present on admission ( X) Unable to clinically determine ( ) Septic Shock (Severe sepsis with acute circulatory failure, unexplained by other causes) ( ) Present on Admission ( ) Not present on admission (X ) Unable to clinically determine ( ) Other, patient has: Severe sepsis, ruled out MTDD
== END 2024-03-03 13:07 | disposition home or self-care (01) | DRG 872 ==
LOC: ED 12:33 → 2S 16:22 → SUATTDRO 16:22 → 2S 18:06

== ENCOUNTER 2024-03-10 11:08 | Inpatient (IN) ==
--- NOTE | 2024-03-10 11:39 | Emergency Department Note ---
Impression & Plan Sepsis, Mass of pancreas, Elevated INR, Abdominal ascites, Syncope, Hypotension, Hypomagnesemia ED Provider Note NAME: KALIA CALDERÓN AGE: 64 SEX: M : 1960 ARRIVES VIA: Walk-In INFORMANT: Patient, the patient's family ED PROVIDER(S): Kalia Michael DO CHIEF COMPLAINT: Syncope HPI: The patient is a 64-year-old male who presented to the emergency department [facility] after having a syncopal episode. The patient was recently admitted to our facility. He was diagnosed with a nonspecific pancreatic mass. He did have an ultrasound guided biopsy. The patient was following up with the cancer center today to get his report which did show a positive for carcinoma most likely pancreatic in nature. The patient was in the waiting room when he became diaphoretic and had a syncopal episode. He was found to be hypotensive and the patient was sent directly to the emergency department for further evaluation. The patient complains of upper abdominal pain. He does complain of some shortness of breath with exertion. He denies having any headache. He denies having any vomiting but does have nausea. He denies having any rectal bleeding. ROS: See above HPI for pertinent positives & negatives. A total of 10 systems reviewed and were otherwise negative. PAST MEDICAL HISTORY: See Below PAST SURGICAL HISTORY: See Below FAMILY HISTORY: See Below SOCIAL HISTORY: See Below HOME MEDICATIONS: See Below ALLERGIES: See Below VITALS: See Below PHYSICAL EXAMINATION: GENERAL: The patient is awake and alert. The patient is anxious appearing and pale. EYES: The conjunctivae are clear. The pupils are round and reactive. EARS, NOSE, MOUTH AND THROAT: The nose is without any evidence of any deformity. NECK: The neck is nontender and supple. RESPIRATORY: Diminished breath sounds noted at the bases. There is no tachypnea or conversational dyspnea. CARDIOVASCULAR: Tachycardic and irregular heart sounds were noted to auscultation. There is no definite murmur. GASTROINTESTINAL: The abdomen is pendulous and obese. The abdomen is distended. There is upper abdominal tenderness to palpation which is moderate. MUSCULOSKELETAL/EXTREMITIES: There is no evidence of gross deformity full range of motion is noted in the hips and shoulders. SKIN: Pedal edema was noted bilaterally. Venous stasis changes were noted bilaterally. NEUROLOGIC: Patient is awake alert and oriented x3 MEDICAL DECISION MAKING: The patient is a 64-year-old male who presented to the emergency department for evaluation of syncope and abdominal pain. The patient was recently diagnosed with a pancreatic mass. He was discharged from our facility a few weeks ago. He had a follow-up appointment with his oncologist today. He had a ultrasound- guided biopsy of his liver and the mass and apparently they feel this is consistent with either a cholangiocarcinoma or possibly pancreatic cancer. I discussed his condition with his oncologist she did not have the opportunity to evaluate him however she felt that this was most likely consistent with pancreatic cancer and was going to discuss some of the options with the patient. He then became tyler ashen and hypotensive and passed out. He did not fall. There was no trauma. The patient was sent to the Emergency Department for further evaluation. He was treated with multiple fluid boluses as well as empiric antibiotics. His inflammatory markers would suggest sepsis. I discussed patient's laboratory and radiographic studies with him and his family. I also discussed his condition with the on-call [facility]. They have agreed to evaluate the patient in the emergency department. Triage Nursing notes reviewed. Prior medical records reviewed Vital Signs: reviewed and remarkable for initial hypotension and tachycardia. Differential diagnosis: Vasovagal event, dehydration, infection, hypoglycemia, electrolyte abnormalities, cardiac sources, intracerebral event, pulmonary embolism, seizure, toxicologic, neurologic, as well as other pathologies. ER treatment provided: See below Diagnostics interpreted by me: ECG: EKG was obtained in the emergency department. My interpretation is atrial fibrillation at 100 bpm. Low voltage was noted throughout. Nonspecific ST segment abnormalities are noted. This was compared to a tracing from August 26, 2023. No specific changes were noted. Cardiac Monitoring: An order was placed for continuous cardiac monitoring. The monitor shows a rate of 104 bpm with atrial fibrillation and RVR. Laboratory studies: As stated above and show below. Imaging studies: See below. Radiographic imaging was reviewed by myself Consultation(s): I discussed this case with Dr. Angeles who is on-call for the [facility] group. ED COURSE: Procedures: none Critical Care: I have personally spent greater than 45 minutes of critical care time in the direct management of this patient. This includes bedside care, interpretation of diagnostic studies, and testing, discussion with consultants, patient, and family members, and other required patient management activities. This 45 minutes is in excess of all separately billable procedures. Past Med/Surg History Problem List (Updated 03/10/24 @ 14:43 by Genie Owen PA-C) Urinary tract infection Supratherapeutic INR Hypotension (Acute) Syncope (Acute) Abdominal ascites (Acute) Elevated INR (Acute) Mass of pancreas (Acute) Sepsis (Acute) NONI (acute kidney injury) Pancreatic mass Severe sepsis Acute hypotension (Acute) Liver masses (Acute) Acute UTI (urinary tract infection) (Acute) Atrial fibrillation (Acute) Sepsis (Acute) Gout ROHIT (obstructive sleep apnea) Chronic heart failure with preserved ejection fraction (HFpEF) Hypomagnesemia (Acute) Ambulatory dysfunction (Acute) Generalized weakness (Acute) Chronic atrial fibrillation (Acute) Bilateral chronic knee pain Acute on chronic diastolic heart failure with preserved ejection fraction Acute on chronic respiratory failure with hypoxia and hypercapnia Morbid obesity (Acute) DM2 (diabetes mellitus, type 2) (Acute) GERD (gastroesophageal reflux disease) HLD (hyperlipidemia) HTN (hypertension) Shortness of breath Breathlessness (Acute) CHCF (current) use of 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s (Acute) Pulmonary edema (Acute) Fluid overload (Acute) Atrial fibrillation (Acute) Medical History Chronic venous stasis Bacterial arthritis of both knees Surgical History H/O arthroscopic knee surgery Family History Other Heart disease Hypertension Social History Smoking Status: Unknown if ever smoked Hx Alcohol Use: No Hx Substance Use: No Preferred Language: P[place] Communication Ability: Effective Intermediate Project Manager Required: No Beliefs That Will Affect Care: None Current Living Situation: Spouse and Family Feels Safe at Home: Yes Assistive Devices: Cane, CPAP, Walker and Other Allergies Allergies Allergy/AdvReac Type Severity Reaction Status Date / Time No Known Allergies Allergy Mild Verified 03/10/24 13:28 Home Meds Home Medications Medication Instructions Recorded Confirmed albuterol sulfate 90 mcg/actuation 2 puff inhalation QID PRN 11/11/22 03/10/24 aerosol inhaler Shortness Of Breath and cough atorvastatin 40 mg tablet 40 mg PO QPM 11/11/22 03/10/24 omeprazole 40 mg capsule,delayed 40 mg PO DAILYBB 11/11/22 03/10/24 release tramadol 200 mg tablet,extended 200 mg PO HS 12/12/22 03/10/24 release 24 hr allopurinol 100 mg tablet 100 mg PO QAM 02/24/24 03/10/24 aspirin 81 mg chewable tablet 81 mg PO DAILY 02/24/24 03/10/24 (Children's Aspirin) diclofenac sodium 1 % topical gel 2 g EXT TID PRN Pain 02/24/24 03/10/24 (Voltaren Arthritis Pain) metoprolol succinate 50 mg 50 mg PO AMPM 02/24/24 03/10/24 tablet,extended release 24 hr warfarin 5 mg tablet See Rx Instructions .Route .COMPLEX 02/24/24 03/10/24 Previous Rx's Medication Instructions Recorded furosemide 20 mg tablet (Lasix) 20 mg PO DAILY PRN edema #30 tabs 12/09/22 spironolactone 25 mg tablet 12.5 mg (1/2 x 25 mg) PO QAM #30 12/09/22 tabs Results & Data (ED) Vital Signs Vital Signs - 24 hr 03/10/24 11:09 03/10/24 11:20 03/10/24 11:20 Temperature 29.7 C L Temperature Source Temporal Artery Scan Pulse Rate 84 Pulse Rate from SpO2 Sensor Pulse Rhythm Regular Pulse Strength Normal Respiratory Rate 20 24 Respiratory Effort / Characteristics Non-Labored Spontaneous Non-Labored Respiratory Depth Normal Normal Respiratory Pattern Regular Regular Blood Pressure 97/63 L Blood Pressure Mean 74 Pulse Oximetry 99 Oxygen Delivery Method Room Air Room Air Room Air Sepsis Recent Fever Within 48 Hours No Sepsis New/Unexplained Change in Mental Status No Sepsis Action Taken by Nursing No Action Required 03/10/24 11:22 03/10/24 11:39 03/10/24 11:40 Temperature Temperature Source Pulse Rate 98 H Pulse Rate from SpO2 Sensor Pulse Rhythm Pulse Strength Respiratory Rate 19 Respiratory Effort / Characteristics Respiratory Depth Respiratory Pattern Blood Pressure 95/67 L 116/80 Blood Pressure Mean 84 87 Pulse Oximetry Oxygen Delivery Method Sepsis Recent Fever Within 48 Hours Sepsis New/Unexplained Change in Mental Status Sepsis Action Taken by Nursing 03/10/24 11:42 03/10/24 11:55 03/10/24 12:17 Temperature 36.8 C Temperature Source Oral Pulse Rate 99 H Pulse Rate from SpO2 Sensor 96 H Pulse Rhythm Pulse Strength Respiratory Rate 24 Respiratory Effort / Characteristics Respiratory Depth Respiratory Pattern Blood Pressure 102/63 Blood Pressure Mean 68 Pulse Oximetry 93 Oxygen Delivery Method Sepsis Recent Fever Within 48 Hours Sepsis New/Unexplained Change in Mental Status Sepsis Action Taken by Nursing 03/10/24 12:17 03/10/24 12:21 03/10/24 12:30 Temperature Temperature Source Pulse Rate 101 H 113 H Pulse Rate from SpO2 Sensor 98 H 103 H Pulse Rhythm Pulse Strength Respiratory Rate 23 22 Respiratory Effort / Characteristics Respiratory Depth Respiratory Pattern Blood Pressure 102/63 Blood Pressure Mean 68 Pulse Oximetry 94 94 Oxygen Delivery Method Sepsis Recent Fever Within 48 Hours Sepsis New/Unexplained Change in Mental Status Sepsis Action Taken by Nursing 03/10/24 12:40 03/10/24 12:42 03/10/24 12:51 Temperature Temperature Source Pulse Rate 101 H 94 H Pulse Rate from SpO2 Sensor 102 H 101 H Pulse Rhythm Pulse Strength Respiratory Rate 15 22 Respiratory Effort / Characteristics Respiratory Depth Respiratory Pattern Blood Pressure Blood Pressure Mean Pulse Oximetry 94 94 95 Oxygen Delivery Method Room Air Sepsis Recent Fever Within 48 Hours Sepsis New/Unexplained Change in Mental Status Sepsis Action Taken by Nursing 03/10/24 13:00 03/10/24 13:03 03/10/24 13:06 Temperature Temperature Source Pulse Rate 104 H Pulse Rate from SpO2 Sensor 100 H Pulse Rhythm Pulse Strength Respiratory Rate 19 Respiratory Effort / Characteristics Respiratory Depth Respiratory Pattern Blood Pressure 122/96 Blood Pressure Mean 98 Pulse Oximetry 95 Oxygen Delivery Method Sepsis Recent Fever Within 48 Hours Sepsis New/Unexplained Change in Mental Status Sepsis Action Taken by Nursing 03/10/24 13:15 03/10/24 13:30 03/10/24 13:31 Temperature Temperature Source Pulse Rate 97 H 106 H Pulse Rate from SpO2 Sensor 101 H Pulse Rhythm Pulse Strength Respiratory Rate 16 18 Respiratory Effort / Characteristics Respiratory Depth Respiratory Pattern Blood Pressure 124/100 Blood Pressure Mean 113 Pulse Oximetry 96 Oxygen Delivery Method Sepsis Recent Fever Within 48 Hours Sepsis New/Unexplained Change in Mental Status Sepsis Action Taken by Nursing 03/10/24 13:54 03/10/24 14:00 03/10/24 14:00 Temperature Temperature Source Pulse Rate 88 Pulse Rate from SpO2 Sensor 90 Pulse Rhythm Pulse Strength Respiratory Rate 22 Respiratory Effort / Characteristics Respiratory Depth Respiratory Pattern Blood Pressure 137/98 137/98 Blood Pressure Mean 104 104 Pulse Oximetry 96 Oxygen Delivery Method Sepsis Recent Fever Within 48 Hours Sepsis New/Unexplained Change in Mental Status Sepsis Action Taken by Nursing 03/10/24 14:00 03/10/24 14:06 03/10/24 14:12 Temperature Temperature Source Pulse Rate 96 H 94 H Pulse Rate from SpO2 Sensor 98 H 89 Pulse Rhythm Pulse Strength Respiratory Rate 21 16 Respiratory Effort / Characteristics Respiratory Depth Respiratory Pattern Blood Pressure 137/98 Blood Pressure Mean 104 Pulse Oximetry 95 95 Oxygen Delivery Method Sepsis Recent Fever Within 48 Hours Sepsis New/Unexplained Change in Mental Status Sepsis Action Taken by Alf Medications Current Medication List: was personally reviewed by me Laboratory Data Attestation: I reviewed the patient's lab results. 03/10/24 11:30 03/10/24 11:30 Lab Results 03/10/24 03/10/24 03/10/24 Range/Units 11:29 11:30 11:42 WBC 19.43 H (4.8-10.8) K/ul RBC 4.83 (4.70-6.10) M/uL Hgb 13.4 L (14.0-18.0) g/dl POC Hgb 15.6 (14.0-18.0) g/dl Hct 43.5 (42.0-52.0) % POC Hct 46 (42-52) % MCV 90.1 (80.0-100.0) fL MCH 27.7 (25.0-34.0) pg MCHC 30.8 L (32.0-36.0) g/dL RDW Std Deviation 47.3 H (36.4-46.3) fL RDW Coeff of Zoila 14.5 (11.5-14.5) % Plt Count 522 H (130-400) K/uL MPV 11.4 (9.4-12.4) fL Immature Gran % (Auto) 1.9 % Neut % (Auto) 79.4 % Lymph % (Auto) 8.2 % Power % (Auto) 8.6 % Eos % (Auto) 1.2 % Baso % (Auto) 0.7 % Neut # (Auto) 15.42 H (1.40-6.50) K/uL Lymph # (Auto) 1.60 (1.20-3.40) K/uL Power # (Auto) 1.68 H (0.11-0.59) K/uL Eos # (Auto) 0.23 (0.00-0.50) K/uL Baso # (Auto) 0.14 (0.00-0.20) K/uL Immature Gran # (Auto) 0.36 H (0.01-0.20) K/uL PT 54.0 H (9.0-12.0) Seconds INR 5.8 H* (0.9-1.1) APTT 50 H (21-31) Seconds PTT Ratio 1.9 VBG pH 7.36 (7.36-7.41) VBG pCO2 35 L (38-50) mmHg VBG pO2 61 mmHg VBG HCO3 20 mmol/L VBG O2 Saturation 91.4 % VBG Base Excess -4.9 mEq/L POC Sodium 136 (135-144) mmol/L Sodium 134 L (136-145) mmol/L POC Potassium 5.0 (3.3-5.0) mmol/L Potassium 5.0 (3.5-5.1) mmol/L POC Chloride 103 (101-112) mmol/L Chloride 99 (98-107) mmol/L Carbon Dioxide 19 L (21-32) mmol/L POC Total CO2 19 L (24-31) mmol/L Anion Gap 16 H (3-11) POC Anion Gap 21.0 (16-25) mmol/L POC BUN 22 H (7-18) mg/dl BUN 24 H (6-23) mg/dl Creatinine 1.81 H (0.6-1.4) mg/dl POC Creatinine 1.9 H (0.6-1.3) mg/dl Est Cr Clr Drug Dosing 70.5 ml/min Est GFR ( Amer) 45.4 ml/min Est GFR (Non-Af Amer) 39.2 ml/min BUN/Creatinine Ratio 13.3 (10-20) Glucose 180 H (70-99(Fasting)) mg/dl POC Glucose (other) 192 H (70-99) mg/dl Lactate 5.9 H* (0.4-2.0) mmol/L Calcium 8.5 L (8.6-10.3) mg/dl POC Ioniz Calcium Radha 1.02 L (1.12-1.32) mmol/l Magnesium 1.3 L (1.7-2.4) mg/dl Total Bilirubin 0.9 (0.2-1.0) mg/dl Direct Bilirubin 0.3 H (0-0.2) mg/dl AST 33 (13-39) U/L ALT 16 (7-52) U/L Alkaline Phosphatase 313 H (34-104) U/L Troponin I High Sens 7.4 (0-20) pg/ml Total Protein 8.5 H (6.0-8.3) gm/dl Albumin 2.8 L (3.4-5.0) gm/dl Procalcitonin 2.52 H (0-0.5) ng/ml TSH 3.273 (0.300-4.500) uIu/ml Random Cortisol 42.49 mcg/dl Urine Color Urine Appearance (Clear) Urine pH (4.5-7.5) Ur Specific Anna (1.000-1.030) Urine Protein (Negative) Urine Glucose (UA) (Negative) Urine Ketones (Negative) Urine Blood (Negative) Urine Nitrite (Negative) Urine Bilirubin (Negative) Urine Urobilinogen (Negative) Ur Leukocyte Esterase (Negative) Urine WBC (Auto) (0-5) /hpf Urine RBC (Auto) (0-2) /hpf U Hyaline Cast (Auto) (0-2) /lpf U Epithel Cells (Auto) (0-2) /hpf Urine Bacteria (Auto) (None Seen) Urine Mucus (None Prsent) SARS-CoV-2 (PCR) (Negative) Influenza Type A (PCR) (Neg) Influenza Type B (PCR) (Neg) RSV (RT-PCR) (Neg) Blood Type Cancelled Antibody Screen Cancelled 03/10/24 03/10/24 03/10/24 Range/Units 12:33 12:42 13:33 WBC (4.8-10.8) K/ul RBC (4.70-6.10) M/uL Hgb (14.0-18.0) g/dl POC Hgb (14.0-18.0) g/dl Hct (42.0-52.0) % POC Hct (42-52) % MCV (80.0-100.0) fL MCH (25.0-34.0) pg MCHC (32.0-36.0) g/dL RDW Std Deviation (36.4-46.3) fL RDW Coeff of Zoila (11.5-14.5) % Plt Count (130-400) K/uL MPV (9.4-12.4) fL Immature Gran % (Auto) % Neut % (Auto) % Lymph % (Auto) % Power % (Auto) % Eos % (Auto) % Baso % (Auto) % Neut # (Auto) (1.40-6.50) K/uL Lymph # (Auto) (1.20-3.40) K/uL Power # (Auto) (0.11-0.59) K/uL Eos # (Auto) (0.00-0.50) K/uL Baso # (Auto) (0.00-0.20) K/uL Immature Gran # (Auto) (0.01-0.20) K/uL PT (9.0-12.0) Seconds INR (0.9-1.1) APTT (21-31) Seconds PTT Ratio VBG pH (7.36-7.41) VBG pCO2 (38-50) mmHg VBG pO2 mmHg VBG HCO3 mmol/L VBG O2 Saturation % VBG Base Excess mEq/L POC Sodium (135-144) mmol/L Sodium (136-145) mmol/L POC Potassium (3.3-5.0) mmol/L Potassium (3.5-5.1) mmol/L POC Chloride (101-112) mmol/L Chloride (98-107) mmol/L Carbon Dioxide (21-32) mmol/L POC Total CO2 (24-31) mmol/L Anion Gap (3-11) POC Anion Gap (16-25) mmol/L POC BUN (7-18) mg/dl BUN (6-23) mg/dl Creatinine (0.6-1.4) mg/dl POC Creatinine (0.6-1.3) mg/dl Est Cr Clr Drug Dosing ml/min Est GFR ( Amer) ml/min Est GFR (Non-Af Amer) ml/min BUN/Creatinine Ratio (10-20) Glucose (70-99(Fasting)) mg/dl POC Glucose (other) (70-99) mg/dl Lactate 2.9 H* (0.4-2.0) mmol/L Calcium (8.6-10.3) mg/dl POC Ioniz Calcium Radha (1.12-1.32) mmol/l Magnesium (1.7-2.4) mg/dl Total Bilirubin (0.2-1.0) mg/dl Direct Bilirubin (0-0.2) mg/dl AST (13-39) U/L ALT (7-52) U/L Alkaline Phosphatase (34-104) U/L Troponin I High Sens (0-20) pg/ml Total Protein (6.0-8.3) gm/dl Albumin (3.4-5.0) gm/dl Procalcitonin (0-0.5) ng/ml TSH (0.300-4.500) uIu/ml Random Cortisol mcg/dl Urine Color Dark Yellow Urine Appearance Turbid A (Clear) Urine pH 5.5 (4.5-7.5) Ur Specific Anna 1.039 H (1.000-1.030) Urine Protein 3+ H (Negative) Urine Glucose (UA) Negative (Negative) Urine Ketones Trace H (Negative) Urine Blood 3+ H (Negative) Urine Nitrite Negative (Negative) Urine Bilirubin 1+ H (Negative) Urine Urobilinogen Negative (Negative) Ur Leukocyte Esterase 1+ H (Negative) Urine WBC (Auto) 11-20 H (0-5) /hpf Urine RBC (Auto) >20 H (0-2) /hpf U Hyaline Cast (Auto) >20 H (0-2) /lpf U Epithel Cells (Auto) 11-20 H (0-2) /hpf Urine Bacteria (Auto) None Seen (None Seen) Urine Mucus Present A (None Prsent) SARS-CoV-2 (PCR) (Negative) Influenza Type A (PCR) (Neg) Influenza Type B (PCR) (Neg) RSV (RT-PCR) (Neg) Blood Type B Negative Antibody Screen NEGATIVE 03/10/24 Range/Units Unknown WBC (4.8-10.8) K/ul RBC (4.70-6.10) M/uL Hgb (14.0-18.0) g/dl POC Hgb (14.0-18.0) g/dl Hct (42.0-52.0) % POC Hct (42-52) % MCV (80.0-100.0) fL MCH (25.0-34.0) pg MCHC (32.0-36.0) g/dL RDW Std Deviation (36.4-46.3) fL RDW Coeff of Zoila (11.5-14.5) % Plt Count (130-400) K/uL MPV (9.4-12.4) fL Immature Gran % (Auto) % Neut % (Auto) % Lymph % (Auto) % Power % (Auto) % Eos % (Auto) % Baso % (Auto) % Neut # (Auto) (1.40-6.50) K/uL Lymph # (Auto) (1.20-3.40) K/uL Power # (Auto) (0.11-0.59) K/uL Eos # (Auto) (0.00-0.50) K/uL Baso # (Auto) (0.00-0.20) K/uL Immature Gran # (Auto) (0.01-0.20) K/uL PT (9.0-12.0) Seconds INR (0.9-1.1) APTT (21-31) Seconds PTT Ratio VBG pH (7.36-7.41) VBG pCO2 (38-50) mmHg VBG pO2 mmHg VBG HCO3 mmol/L VBG O2 Saturation % VBG Base Excess mEq/L POC Sodium (135-144) mmol/L Sodium (136-145) mmol/L POC Potassium (3.3-5.0) mmol/L Potassium (3.5-5.1) mmol/L POC Chloride (101-112) mmol/L Chloride (98-107) mmol/L Carbon Dioxide (21-32) mmol/L POC Total CO2 (24-31) mmol/L Anion Gap (3-11) POC Anion Gap (16-25) mmol/L POC BUN (7-18) mg/dl BUN (6-23) mg/dl Creatinine (0.6-1.4) mg/dl POC Creatinine (0.6-1.3) mg/dl Est Cr Clr Drug Dosing ml/min Est GFR ( Amer) ml/min Est GFR (Non-Af Amer) ml/min BUN/Creatinine Ratio (10-20) Glucose (70-99(Fasting)) mg/dl POC Glucose (other) (70-99) mg/dl Lactate (0.4-2.0) mmol/L Calcium (8.6-10.3) mg/dl POC Ioniz Calcium Radha (1.12-1.32) mmol/l Magnesium (1.7-2.4) mg/dl Total Bilirubin (0.2-1.0) mg/dl Direct Bilirubin (0-0.2) mg/dl AST (13-39) U/L ALT (7-52) U/L Alkaline Phosphatase (34-104) U/L Troponin I High Sens (0-20) pg/ml Total Protein (6.0-8.3) gm/dl Albumin (3.4-5.0) gm/dl Procalcitonin (0-0.5) ng/ml TSH (0.300-4.500) uIu/ml Random Cortisol mcg/dl Urine Color Urine Appearance (Clear) Urine pH (4.5-7.5) Ur Specific Anna (1.000-1.030) Urine Protein (Negative) Urine Glucose (UA) (Negative) Urine Ketones (Negative) Urine Blood (Negative) Urine Nitrite (Negative) Urine Bilirubin (Negative) Urine Urobilinogen (Negative) Ur Leukocyte Esterase (Negative) Urine WBC (Auto) (0-5) /hpf Urine RBC (Auto) (0-2) /hpf U Hyaline Cast (Auto) (0-2) /lpf U Epithel Cells (Auto) (0-2) /hpf Urine Bacteria (Auto) (None Seen) Urine Mucus (None Prsent) SARS-CoV-2 (PCR) NEGATIVE (Negative) Influenza Type A (PCR) Negative (Neg) Influenza Type B (PCR) Negative (Neg) RSV (RT-PCR) Negative (Neg) Blood Type Antibody Screen Administered Medications Discontinued Medications Sodium Chloride (Nss) 1,000 mls @ 999 mls/hr IV .Q1H1M ONE Stop: 03/10/24 12:22 Last Infusion: 03/10/24 13:35 Dose: Infused Documented By: Admin: 03/10/24 12:26 Dose: 999 mls/hr Documented By: YINA Sodium Chloride (Nss) 1,000 mls @ 999 mls/hr IV .Q1H1M ONE Stop: 03/10/24 12:57 Last Admin: 03/10/24 13:22 Dose: 999 mls/hr Documented By: AILIN Magnesium Sulfate/Dextrose (Magnesium Sulfate / D5w) 1 gm in 100 mls @ 100 mls/hr IV NOW STA Stop: 03/10/24 14:12 Last Admin: 03/10/24 13:22 Dose: 100 mls/hr Documented By: AILIN Sodium Chloride (Nss) 500 mls @ 999 mls/hr IV .Q31M ONE Stop: 03/10/24 13:43 Last Admin: 03/10/24 13:22 Dose: 999 mls/hr Documented By: AILIN Ioversol (Optiray 320 125ml) 120 ml IV ONCE ONE Stop: 03/10/24 12:05 Last Admin: 03/10/24 12:05 Dose: 120 ml Documented By: OCHOA Phytonadione (Phytonadione 5 Mg Tab) 2.5 mg PO NOW STA Stop: 03/10/24 13:49 Last Admin: 03/10/24 14:05 Dose: 2.5 mg Documented By: AILIN Imaging Data Attestation: I personally reviewed and interpreted this imaging study as follows: My Impression: 1 view chest x-ray was obtained in the emergency department. My interpretation is cardiomegaly, final report below. CT of the abdomen and pelvis was obtained. Interpretation is no free air, there was fluid around the liver, final report below. Radiologist's Impression: Chest X-Ray 03/10/24 11:22 XR chest 1V portable CLINICAL HISTORY: Sepsis TECHNIQUE: Single frontal radiograph of the chest was obtained. Comparison: Comparison is made to chest radiograph 02/24/2024 FINDINGS: Exam is limited by underpenetration. Cardiomegaly is noted. The lungs are clear. No evidence of pleural effusion or pneumothorax. IMPRESSION: No acute chest disease. Cardiomegaly is noted. ACT 112: Negative or not required by law. Electronically signed by: James Nuñez M.D. 03/10/2024 11:54 AM Abdomen/Pelvis CT 03/10/24 11:24 CT SCAN OF THE ABDOMEN AND PELVIS WITH IV CONTRAST CLINICAL HISTORY: Upper abdominal pain. Hypotension COMPARISON STUDY: Abdominal CT dated 02/24/2024. TECHNIQUE: Following the IV administration of 120 cc of Optiray 320, CT scan of the abdomen and pelvis is performed from the lung bases to the proximal femora. Images are reviewed in the axial, sagittal, and coronal planes. IV contrast was administered without complication. A dose lowering technique was utilized adhering to the principles of ALARA. The examination is degraded by suboptimal patient positioning within the CT gantry. FINDINGS: Lung bases: The heart is top normal in size and without pericardial effusion. There are scattered calcified granulomas. Scarring/atelectasis is noted at the lung bases. No airspace consolidation or pleural effusion is identified. A 9 mm left lower lobe pulmonary nodule is seen on image #332. Liver: The contrast-enhanced liver is top normal in size and heterogeneous in attenuation. Again seen is evidence of extensive/multifocal hepatic metastatic disease. The largest right lobe lesion is seen on image #90 and measures up to 7.5 cm. There is no intrahepatic biliary ductal dilatation. The hepatic veins and portal veins are patent. Gallbladder: Gallstones/sludge is suspected. The gallbladder is distended, with no CT evidence of acute cholecystitis. Spleen: Normal in size and attenuation. Pancreas: There is a heterogeneous low-attenuation mass lesion seen in the pancreatic tail on image #133. This measures approximately 5 x 4 cm. The pancreatic head and proximal body are normal in appearance. The mass closely approximates and likely encases the splenic vein. Adrenal glands: Unremarkable. Kidneys: The contrast enhanced kidneys are normal in size and without hydronephrosis. The kidneys enhance symmetrically. There is a 2.3 cm calculus in the right renal pelvis seen on image #223. No ureteral stone is seen. There is a 1.8 cm cyst in the left upper pole. Abdominal vasculature: The abdominal aorta is normal in course and caliber noting mild atherosclerotic calcification. Bowel: There is moderate sigmoid diverticulosis without CT evidence of acute diverticulitis. No bowel obstruction is identified. Duodenal diverticula are noted. The appendix is normal appearance. Peritoneum: There is a small volume of perihepatic ascites as well as trace pelvic ascites. No intraperitoneal free air is seen. Lymphadenopathy: There are prominent upper abdominal lymph nodes. There is a micah hepatis measure up to 14 mm in short axis. A node below the diaphragmatic hiatus on image #114 measures 10 mm in length. Pelvic viscera: The bladder is decompressed and grossly unremarkable. The prostate gland is diminutive and heterogeneous. The seminal vesicles are normal as imaged. Skeletal structures: The skeletal structures are osteopenic. There is moderate lumbosacral spondylosis. No lytic or blastic lesions are seen. Advanced arthritic change is seen in the hips, left greater than right. IMPRESSION: 1. No acute infectious or inflammatory findings are identified in the abdomen or pelvis. 2. A large pancreatic tail mass and multifocal hepatic metastatic disease is similar to 02/24/2024 examination. Metastatic pancreatic adenocarcinoma is the diagnosis of exclusion. Correlate with the oncological history. 3. Small volume perihepatic and pelvic ascites. This is increased from previous. 4. Suspect gallstones/biliary sludge. There is no CT evidence of acute cholecystitis. 5. A 9 mm pathologically indeterminate pulmonary nodule is seen at the left lung base. 6. Right-sided nephrolithiasis. 7. Sigmoid diverticulosis without CT evidence of acute diverticulitis. 8. Additional findings as above. ACT 112: Negative or not required by law. Electronically signed by: Elbert Wen M.D. 03/10/2024 12:44 PM Chest CTA 03/10/24 11:24 CT angio chest PE protocol CLINICAL HISTORY: PE TECHNIQUE: Multidetector row helical CT of the chest was performed with angiographic protocol. Coronal and sagittal reformations were obtained. Coronal and sagittal MIPS were obtained from the axial data set and were submitted for review. Automated dose lowering techniques and/or adjustment according to patient size were utilized for this exam. CT DOSE: 3434.12 mGy.cm Comparison: Comparison is made to CT chest 02/24/2024 FINDINGS: Lungs and pleura: Pulmonary nodules are seen including a 4 mm nodule in the left upper lobe (series 4 image 173) and a 7 mm nodule in the left lower lobe (image 111). Heart and pericardium: There is cardiomegaly without evidence of pericardial effusion. Vessels: No evidence of pulmonary embolism. Mediastinum and seema: Unremarkable. Chest wall and lower neck: Unremarkable. Abdomen: Unremarkable. Bones: Degenerative changes in the thoracic spine. IMPRESSION: 1. No acute abnormality and in particular no evidence of pulmonary embolus. 2. Stable pulmonary nodules as above. ACT 112: Negative or not required by law. Electronically signed by: James Nuñez M.D. 03/10/2024 12:[address] 03/10/24 13:19 CT OF THE HEAD WITHOUT CONTRAST CLINICAL HISTORY: Syncopal episode. COMPARISON STUDY: No previous studies for comparison. CT DOSE: 1200.25 mGy.cm TECHNIQUE: Helical axial images of the head were obtained without IV contrast. Automated exposure control was utilized for the study. A dose lowering technique was utilized adhering to the principles of ALARA. FINDINGS: No acute intracranial hemorrhage is identified although sensitivity is mildly diminished given intravascular contrast from recent contrast-enhanced CT. The ventricular system is unremarkable. The basal cisterns are patent. No extra- axial collections are present. There are no findings to suggest acute dural sinus thrombosis or acute territorial infarct. No significant calvarial abnormalities are present. Visualized portions of the sinuses and mastoid air cells are clear. IMPRESSION: No acute intracranial findings. ACT 112: Negative or not required by law. Electronically signed by: Cj Anne M.D. 03/10/2024 2:03 PM Discharge Plan Visit Data Chief Complaint: Syncope Stated Complaint: SYNCOPE ED Provider: Kalia Michael Discharge Problem: Sepsis, Mass of pancreas, Elevated INR, Abdominal ascites, Syncope, Hypotension, Hypomagnesemia Patient Disposition: Being Evaluated by Hospitalist Forms Stand Alone Forms: [facility] Prescriptions Prescriptions: No Action tramadol 200 mg tablet extended release 24 hr 200 mg PO HS atorvastatin 40 mg tablet 40 mg PO QPM albuterol sulfate 90 mcg/actuation HFA aerosol inhaler 2 puff INHALATION QID PRN (Reason: Shortness Of Breath and cough) omeprazole 40 mg capsule,delayed release(DR/EC) 40 mg PO DAILYBB spironolactone 25 mg Tablet 12.5 mg PO QAM Qty: 30 0RF furosemide [Lasix] 20 mg tablet 20 mg PO DAILY PRN (Reason: edema) Qty: 30 0RF allopurinol 100 mg tablet 100 mg PO QAM metoprolol succinate 50 mg tablet extended release 24 hr 50 mg PO AMPM diclofenac sodium [Voltaren Arthritis Pain] 1 % gel 2 g EXT TID PRN (Reason: Pain) aspirin [Children's Aspirin] 81 mg Tablet,Chewable 81 mg PO DAILY Rx Instructions: take with food warfarin 5 mg tablet See Rx Instructions .ROUTE .COMPLEX Rx Instructions: Most recent directions as of 02/24/24 are 2.5mg Mon/Fri and 5mg all other days. However, spouse and family are unsure if that has been changed recently or not. And they don't remember which dose he took this morning. Referrals Referrals: Jamey Koch MD [Primary Care Provider] - Discharge Problem: Sepsis Qualifiers: Sepsis type: sepsis due to unspecified organism Sepsis acute organ dysfunction status: unspecified Qualified Code(s): A41.9 - Sepsis, unspecified organism Abdominal ascites Qualifiers: Ascites type: malignant Qualified Code(s): R18.0 - Malignant ascites Syncope Qualifiers: Syncope type: unspecified Qualified Code(s): R55 - Syncope and collapse Hypotension Qualifiers: Hypotension type: unspecified hypotension type Qualified Code(s): I95.9 - Hypotension, unspecified
[2024-03-10 11:54] LABS: Base Excess VBG -4.9 mEq/L; HCO3 VBG 20 mmol/L; Oxygen Saturation VBG 91.4 %; PCO2 VBG 35 mmHg (38-50); PO2 VBG 61 mmHg; pH VBG 7.36 (7.36-7.41)
[2024-03-10 11:54] LABS: iSTAT Creatinine 1.9 mg/dl (0.6-1.3); iSTAT Hemoglobin 15.6 g/dl (14.0-18.0); iSTAT Ionized Calcium 1.02 mmol/l (1.12-1.32)
--- NOTE | 2024-03-10 11:57 | XRay Report ---
XR chest 1V portable CLINICAL HISTORY: Sepsis TECHNIQUE: Single frontal radiograph of the chest was obtained. Comparison: Comparison is made to chest radiograph 02/24/2024 FINDINGS: Exam is limited by underpenetration. Cardiomegaly is noted. The lungs are clear. No evidence of pleur al effusion or pneumothorax. IMPRESSION: No acute chest disease. Cardiomegaly is noted. ACT 112: Negative or not required by law. Electronically signed by: James Nuñez M.D. 03/10/2024 11:54 AM
[2024-03-10] MEDS: OPTIRAY 320 125ml IV ONE (12:05)
[2024-03-10 12:13] LABS: Basophils # (auto) 0.14 K/uL (0.00-0.20); Basophils % (auto) 0.7 %; Eosinophils # (auto) 0.23 K/uL (0.00-0.50); Eosinophils % (auto) 1.2 %; Hematocrit (blood only) 43.5 % (42.0-52.0); Hemoglobin 13.4 g/dl (14.0-18.0); Immature Granulocytes # (auto) 0.36 K/uL (0.01-0.20); Immature Granulocytes % (auto) 1.9 %; Lymphocytes % (auto) 8.2 %; Mean Corpuscular Hemoglobin 27.7 pg (25.0-34.0); Mean Corpuscular Hgb Conc 30.8 g/dL (32.0-36.0); Mean Corpuscular Volume 90.1 fL (80.0-100.0); Mean Platelet Volume 11.4 fL (9.4-12.4); Monocytes # (auto) 1.68 K/uL (0.11-0.59); Monocytes % (auto) 8.6 %; Neutrophils # (auto) 15.42 K/uL (1.40-6.50); Neutrophils % (auto) 79.4 %; Platelet Count 522 K/uL (130-400); RDW Coefficient of Variation 14.5 % (11.5-14.5); RDW Standard Deviation 47.3 fL (36.4-46.3); Red Blood Count 4.83 M/uL (4.70-6.10); White Blood Count 19.43 K/ul (4.8-10.8)
[2024-03-10 12:25] LABS: Albumin Level 2.8 gm/dl (3.4-5.0); BUN Creatinine Ratio 13.3 (10-20); Bilirubin Direct 0.3 mg/dl (0-0.2); Bilirubin,Total 0.9 mg/dl (0.2-1.0); Calcium 8.5 mg/dl (8.6-10.3); Creatinine Clr Calc Pharmacy 70.5 ml/min; Est GFR (African American) 45.4 ml/min; Est GFR (Non-African American) 39.2 ml/min; Magnesium 1.3 mg/dl (1.7-2.4); Total Protein 8.5 gm/dl (6.0-8.3)
[2024-03-10] MEDS: SODIUM CHLORIDE 0.9% 1,000 ML IV ONE ×2 (12:26→13:22)
--- NOTE | 2024-03-10 12:28 | Electrocardiogram Report ---
Test Reason : Blood Pressure : / mmHG Vent. Rate : 100 BPM Atrial Rate : 000 BPM P-R Int : 000 ms QRS Dur : 088 ms QT Int : 344 ms P-R-T Axes : 000 017 -25 degrees QTc Int : 443 ms Poor data quality, interpretation may be adversely affected Atrial fibrillation Nonspecific ST and T wave abnormality Abnormal ECG When compared with ECG of 24-FEB-2024 12:50, No significant change was found Confirmed by Candido Gomez ([id number]) on 03/10/2024 12:28:15 PM Referred By: REFERRED SELF Confirmed By:Candido Gomez
[2024-03-10 12:30] LABS: Troponin I High Sensitivity 7.4 pg/ml (0-20)
[2024-03-10 12:33] LABS: Partial Thromboplastin Ratio 1.9; Partial Thromboplastin Time 50 Seconds (21-31)
[2024-03-10 12:37] LABS: Influenza A virus by PCR Negative (Neg); Influenza B virus by PCR Negative (Neg); RSV by PCR Negative (Neg); SARS CoV2 RNA(COVID-19) Ceph NEGATIVE (Negative)
--- NOTE | 2024-03-10 12:40 | CT Scan Report ---
CT angio chest PE protocol CLINICAL HISTORY: PE TECHNIQUE: Multidetector row helical CT of the chest was performed with angiographic protocol. Bar l and sagittal reformations were obtained. Coronal and sagittal MIPS were obtained from the axial demian a set and were submitted for review. Automated dose lowering techniques and/or adjustment according to patient size were utilized for this exam. CT DOSE: 3434.12 mGy.cm Comparison: Comparison is made to CT chest 02/24/2024 FINDINGS: Lungs and pleura: Pulmonary nodules are seen including a 4 mm nodule in the left upper lobe (series 4 image 173) and a 7 mm nodule in the left lower lobe (image 111). Heart and pericardium: There is cardiomegaly without evidence of pericardial effusion. Vessels: No evidence of pulmonary embolism. Mediastinum and seema: Unremarkable. Chest wall and lower neck: Unremarkable. Abdomen: Unremarkable. Bones: Degenerative changes in the thoracic spine. IMPRESSION: 1. No acute abnormality and in particular no evidence of pulmonary embolus. 2. Stable pulmonary nodules as above. ACT 112: Negative or not required by law. Electronically signed by: James Nuñez M.D. 03/10/2024 12:39 PM
--- NOTE | 2024-03-10 12:46 | CT Scan Report ---
CT SCAN OF THE ABDOMEN AND PELVIS WITH IV CONTRAST CLINICAL HISTORY: Upper abdominal pain. Hypotension COMPARISON STUDY: Abdominal CT dated 02/24/2024. TECHNIQUE: Following the IV administration of 120 cc of Optiray 320, CT scan of the abdomen and pelv is is performed from the lung bases to the proximal femora. Images are reviewed in the axial, sagitta l, and coronal planes. IV contrast was administered without complication. A dose lowering technique w as utilized adhering to the principles of ALARA. The examination is degraded by suboptimal patient po sitioning within the CT gantry. FINDINGS: Lung bases: The heart is top normal in size and without pericardial effusion. There are scattered wily cified granulomas. Scarring/atelectasis is noted at the lung bases. No airspace consolidation or pleu ral effusion is identified. A 9 mm left lower lobe pulmonary nodule is seen on image #332. Liver: The contrast-enhanced liver is top normal in size and heterogeneous in attenuation. Again seen is evidence of extensive/multifocal hepatic metastatic disease. The largest right lobe lesion is see n on image #90 and measures up to 7.5 cm. There is no intrahepatic biliary ductal dilatation. The hep atic veins and portal veins are patent. Gallbladder: Gallstones/sludge is suspected. The gallbladder is distended, with no CT evidence of acu te cholecystitis. Spleen: Normal in size and attenuation. Pancreas: There is a heterogeneous low-attenuation mass lesion seen in the pancreatic tail on image # 133. This measures approximately 5 x 4 cm. The pancreatic head and proximal body are normal in appear ance. The mass closely approximates and likely encases the splenic vein. Adrenal glands: Unremarkable. Kidneys: The contrast enhanced kidneys are normal in size and without hydronephrosis. The kidneys enh ance symmetrically. There is a 2.3 cm calculus in the right renal pelvis seen on image #223. No urete ral stone is seen. There is a 1.8 cm cyst in the left upper pole. Abdominal vasculature: The abdominal aorta is normal in course and caliber noting mild atheroscleroti c calcification. Bowel: There is moderate sigmoid diverticulosis without CT evidence of acute diverticulitis. No bowel obstruction is identified. Duodenal diverticula are noted. The appendix is normal appearance. Peritoneum: There is a small volume of perihepatic ascites as well as trace pelvic ascites. No intrap eritoneal free air is seen. Lymphadenopathy: There are prominent upper abdominal lymph nodes. There is a micah hepatis measure up to 14 mm in short axis. A node below the diaphragmatic hiatus on image #114 measures 10 mm in length . Pelvic viscera: The bladder is decompressed and grossly unremarkable. The prostate gland is diminutiv e and heterogeneous. The seminal vesicles are normal as imaged. Skeletal structures: The skeletal structures are osteopenic. There is moderate lumbosacral spondylosi s. No lytic or blastic lesions are seen. Advanced arthritic change is seen in the hips, left greater than right. IMPRESSION: 1. No acute infectious or inflammatory findings are identified in the abdomen or pelvis. 2. A large pancreatic tail mass and multifocal hepatic metastatic disease is similar to 02/24/2024 exam ination. Metastatic pancreatic adenocarcinoma is the diagnosis of exclusion. Correlate with the oncol ogical history. 3. Small volume perihepatic and pelvic ascites. This is increased from previous. 4. Suspect gallstones/biliary sludge. There is no CT evidence of acute cholecystitis. 5. A 9 mm pathologically indeterminate pulmonary nodule is seen at the left lung base. 6. Right-sided nephrolithiasis. 7. Sigmoid diverticulosis without CT evidence of acute diverticulitis. 8. Additional findings as above. ACT 112: Negative or not required by law. Electronically signed by: Elbert Wen M.D. 03/10/2024 12:44 PM
[2024-03-10 13:10] LABS: INR 5.8 (0.9-1.1)
[2024-03-10] MEDS: SODIUM CHLORIDE 0.9% 500 ML IV ONE (13:22)
[2024-03-10] MEDS: MAGNESIUM SULFATE / D5W 1 GM/100 ML BAG IV STA (13:22)
[2024-03-10 13:38] LABS: Appearance Urine Turbid (Clear); Bacteria Urine Automated None Seen (None Seen); Bilirubin Urine 1+ (Negative); Blood Urine 3+ (Negative); Cast Urine Automated >20 /lpf (0-2); Color Urine Dark Yellow; Glucose Urine UA Negative (Negative); Ketones Urine Trace (Negative); Leukocyte Esterase Urine 1+ (Negative); Mucus Urine Present (None Prsent); Nitrite Urine Negative (Negative); Protein Urine 3+ (Negative); RBC Urine Automated >20 /hpf (0-2); Specific Gravity Urine 1.039 (1.000-1.030); Urobilinogen Urine Negative (Negative); pH Urine 5.5 (4.5-7.5)
--- NOTE | 2024-03-10 14:04 | CT Scan Report ---
CT OF THE HEAD WITHOUT CONTRAST CLINICAL HISTORY: Syncopal episode. COMPARISON STUDY: No previous studies for comparison. CT DOSE: 1200.25 mGy.cm TECHNIQUE: Helical axial images of the head were obtained without IV contrast. Automated exposure con trol was utilized for the study. A dose lowering technique was utilized adhering to the principles o f ALARA. FINDINGS: No acute intracranial hemorrhage is identified although sensitivity is mildly diminished gi karthik intravascular contrast from recent contrast-enhanced CT. The ventricular system is unremarkable. The basal cisterns are patent. No extra-axial collections are present. There are no findings to sugge st acute dural sinus thrombosis or acute territorial infarct. No significant calvarial abnormalities are present. Visualized portions of the sinuses and mastoid air cells are clear. IMPRESSION: No acute intracranial findings. ACT 112: Negative or not required by law. Electronically signed by: Cj Anne M.D. 03/10/2024 2:03 PM
[2024-03-10] MEDS: PHYTONADIONE 5 MG TAB PO STA (14:05)
--- NOTE | 2024-03-10 14:10 | History & Physical Report ---
Date of Service March 10, 2024 Assessment & Plan (1) Syncope: (2) Severe sepsis: (3) Urinary tract infection: (4) Supratherapeutic INR: (5) NONI (acute kidney injury): Plan Candido Curry is a 64y/o M with PMHx of chronic atrial fibrillation anticoagulated on warfarin, T2DM, HTN, chronic HFpEF, ROHIT noncompliant with CPAP, morbid obesity and other problems listed below who presented to the ED for evaluation secondary to a syncopal event and was found to be septic on admissio n. Of note, patient was recently admitted 02/23-03/03 with the following principal diagnoses: suspected metastatic pancreatic cancer and liver mass. Patient underwent IR-guided liver biopsy on 03/02 and was supposed to follow-up with Dr. Bernie johansen at the [facility] today to discuss the biopsy results. However, the patient became diaphoretic in the waiting room and subsequently passed out. He was found to be hypotensive as well at the [facility] and was therefore sent over to the ED. Syncopal Episode Severe Sepsis, UTI - Patient meets criteria for severe sepsis 2/2 presenting HR > 90bpm, WBC count > 12K, present source of infection and lactic acidosis. BP was 97/63 on presentation - likely cause of syncopal episode. Pt received 2.5L NSS in ED --> BP improved to 137/98 at time of admission. Leukocytosis POA w/ WBC count 19.43; procalcitonin elevated at 2.52 as well. Appears procalcitonin has been elevated ~2 since 10/2022. Head CT negative, CXR negative for acute disease process. CTAP w/ no acute infectious or inflammatory findings. Chest CTA negative for PE. UA showing infection --> Will start pt on IV cefepime 2g Q8H. Urine culture pending, follow results and adjust ABX regimen PRN. Elevated lactate 5.9 upon presentation. Pt was administered 2.5L NSS in ED --> Lactate improved to 2.9 at time of admission. Will continue IVF w/ NSS @ 125cc/hr; continue to trend lactate level. Repeat CBC w/ diff and procalcitonin in AM. Close cardiac and pulse ox monitoring in place. Blood cultures, MRSA swab pending - follow. Random cortisol, TSH and echo pending as well. Supratherapeutic INR Chronic Atrial Fibrillation INR 5.8 at time of admission. EKG showing afib, troponin negative. Pt on warfarin STOVE FITTER for afib - will hold for now. Espinoza cath placed in ED, producing pink-tinged urine. Ordered 2.5mg vitamin K to be given in ED, repeat PT/INR in AM. Acute Kidney Injury (NONI) Cr 1.9 on admission (baseline Cr ~1.4). Pt received 2.5L NSS in ED - will continue IVF. Repeat CMP in AM, closely monitor renal function Avoid nephrotoxic medications when able. Chronic HFpEF Last echo done 11/12/22 - results significantly limited 2/2 body habitus. Did show grossly normal LV chamber size, normal LV systolic function. Repeat echo to be completed 2/2 syncopal episode - follow results. Hypomagnesemia Mag 1.3 upon presentation. Received 1g IV mag in ED; will order additional 1g IV mag. Also starting pt on po mag oxide 400mg BID, starting tonight. Recheck mag level ~5PM; also repeat mag in AM, replete PRN. Hyponatremia: Na 134 on admission. Pt received 2.5L NSS in ED. Will continue IVF w/ NSS @125cc/hr. Repeat CMP in AM - monitor Na level. Liver Mass, Suspected Metastatic Pancreatic CA Patient underwent IR-guided liver biopsy on 03/02. Admitting CTAP showing a large pancreatic tail mass and multifocal hepatic metastatic disease is similar to 02/24/2024 examination. He was supposed to see Dr. Gibbs today to discuss the biopsy results. Will consult Dr. Gibbs given above, appreciate her recommendations/input moving forward. HTN: Holding STOVE FITTER metoprolol succinate, Lasix and spironolactone for now 2/2 presenting hypotension; reassess BP in AM. Dyslipidemia: Can continue STOVE FITTER statin therapy. DVT Prophylaxis: SCDs/TEDs - Pt on warfarin STOVE FITTER, will hold for now given supratherapeutic INR. Code Status: FULL CODE PCP: Jamey Koch MD Disposition: Admit to PCU/Telemetry Patient seen in collaboration with Dr. Angeles. Please see addendum. I spent a total of 65 minutes coordinating, documenting, and providing care for this patient excluding time spent in the performance of separately billed services. This included personally reviewing all current laboratories and imaging studies, medical reconciliation, outpatient chart review and discussion with specialists. This chart was completed in part utilizing Speech Voice Recognition Software. Grammatical errors, random word insertions, pronoun errors, and incomplete sentences are an occasional consequence of this system due to software limitations, ambient noise, and hardware issues. Any formal questions or concerns about the content, text, or information contained within the body of this dictation should be directly addressed to the provider for clarification. History of Present Illness Chief Complaint: Syncopal Event Primary Care Provider: Jamey Koch MD Candido Curry is a 64y/o M with PMHx of chronic atrial fibrillation anticoagulated on warfarin, T2DM, HTN, chronic HFpEF, ROHIT noncompliant with CPAP, morbid obesity and other problems listed below who presented to the ED for evaluation secondary to a syncopal event. History obtained from patient, + daughter at bedside and associated chart review. Of note, patient was recently admitted 02/23-03/03 with the following principal diagnoses: suspected metastatic pancreatic cancer and liver mass. Patient underwent IR-guided liver biopsy on 03/02 and was supposed to follow-up with Dr. Bernie johansen at the cancer center today to discuss the biopsy results. However, the patient became diaphoretic in the waiting room and subsequently passed out. He was found to be hypotensive as well at the cancer center and was therefore sent over to the ED. Patient's states that he has been feeling dizzy and nauseous for the past couple of days. He hasn't been eating or drinking well either; denies any recent fevers or chills. No episodes of vomiting or recent falls note. Patient denies any rectal bleeding, hematuria, abdominal pain or history of seizures. Allergies Allergy/AdvReac Type Severity Reaction Status Date / Time No Known Allergies Allergy Mild Verified 03/10/24 13:28 Home Medications Medication Instructions Recorded Confirmed Type albuterol sulfate 90 mcg/actuation 2 puff inhalation QID PRN 11/11/22 03/10/24 History aerosol inhaler Shortness Of Breath and cough atorvastatin 40 mg tablet 40 mg PO QPM 11/11/22 03/10/24 History omeprazole 40 mg capsule,delayed 40 mg PO DAILYBB 11/11/22 03/10/24 History release furosemide 20 mg tablet (Lasix) 20 mg PO DAILY PRN edema #30 tabs 12/09/22 03/10/24 Rx spironolactone 25 mg tablet 12.5 mg (1/2 x 25 mg) PO QAM #30 12/09/22 03/10/24 Rx tabs tramadol 200 mg tablet,extended 200 mg PO HS 12/12/22 03/10/24 History release 24 hr allopurinol 100 mg tablet 100 mg PO QAM 02/24/24 03/10/24 History aspirin 81 mg chewable tablet 81 mg PO DAILY 02/24/24 03/10/24 History (Children's Aspirin) diclofenac sodium 1 % topical gel 2 g EXT TID PRN Pain 02/24/24 03/10/24 History (Voltaren Arthritis Pain) metoprolol succinate 50 mg 50 mg PO AMPM 02/24/24 03/10/24 History tablet,extended release 24 hr warfarin 5 mg tablet See Rx Instructions .Route .COMPLEX 02/24/24 03/10/24 History Past Med/Surg History Problem List (Updated 03/10/24 @ 14:43 by Genie Owen PA-C) Urinary tract infection Supratherapeutic INR Hypotension (Acute) Syncope (Acute) Abdominal ascites (Acute) Elevated INR (Acute) Mass of pancreas (Acute) Sepsis (Acute) NONI (acute kidney injury) Pancreatic mass Severe sepsis Acute hypotension (Acute) Liver masses (Acute) Acute UTI (urinary tract infection) (Acute) Atrial fibrillation (Acute) Sepsis (Acute) Gout ROHIT (obstructive sleep apnea) Chronic heart failure with preserved ejection fraction (HFpEF) Hypomagnesemia (Acute) Ambulatory dysfunction (Acute) Generalized weakness (Acute) Chronic atrial fibrillation (Acute) Bilateral chronic knee pain Acute on chronic diastolic heart failure with preserved ejection fraction Acute on chronic respiratory failure with hypoxia and hypercapnia Morbid obesity (Acute) DM2 (diabetes mellitus, type 2) (Acute) GERD (gastroesophageal reflux disease) HLD (hyperlipidemia) HTN (hypertension) Shortness of breath Breathlessness (Acute) 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 (current) use of 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s (Acute) Pulmonary edema (Acute) Fluid overload (Acute) Atrial fibrillation (Acute) Medical History Chronic venous stasis Bacterial arthritis of both knees Surgical History H/O arthroscopic knee surgery Family History Other Heart disease Hypertension Social History Smoking Status: Unknown if ever smoked Hx Alcohol Use: No Hx Substance Use: No Preferred Language: Mohawk Communication Ability: Effective Cd Technician Required: No Beliefs That Will Affect Care: None Current Living Situation: Spouse and Family Feels Safe at Home: Yes Assistive Devices: Cane, CPAP, Walker and Other Review of Systems Review of Systems: At least ten systems reviewed and negative, except as noted in the HPI. Physical Exam Physical Exam: Please refer to Dr. Angeles's addendum for physical examination findings. Results & Data Results & Data Vital Signs (Past 12 Hours) Vital Signs Temp Pulse Resp BP Pulse Ox O2 Del Method 03/10/24 13:54 88 22 96 03/10/24 13:31 124/100 03/10/24 13:30 106 H 18 03/10/24 13:15 97 H 16 96 03/10/24 13:06 104 H 03/10/24 13:03 19 95 03/10/24 13:00 122/96 03/10/24 12:51 94 H 22 95 03/10/24 12:42 101 H 15 94 03/10/24 12:40 94 Room Air 03/10/24 12:30 113 H 22 94 03/10/24 12:21 101 H 23 94 03/10/24 12:17 102/63 03/10/24 12:17 102/63 03/10/24 11:55 36.8 C 03/10/24 11:42 99 H 24 93 03/10/24 11:40 116/80 03/10/24 11:39 98 H 19 03/10/24 11:22 95/67 L 03/10/24 11:20 24 Room Air 03/10/24 11:20 Room Air 03/10/24 11:09 29.7 C L 84 20 97/63 L 99 Room Air Laboratory Results Short CBC 03/10/24 Range/Units 11:30 WBC 19.43 H (4.8-10.8) K/ul Hgb 13.4 L (14.0-18.0) g/dl Hct 43.5 (42.0-52.0) % Plt Count 522 H (130-400) K/uL BMP 03/10/24 11:30 Sodium 134 L Potassium 5.0 Chloride 99 Carbon Dioxide 19 L BUN 24 H Creatinine 1.81 H Glucose 180 H Calcium 8.5 L Liver Function 03/10/24 Range/Units 11:30 Total Bilirubin 0.9 (0.2-1.0) mg/dl Direct Bilirubin 0.3 H (0-0.2) mg/dl AST 33 (13-39) U/L ALT 16 (7-52) U/L Alkaline Phosphatase 313 H (34-104) U/L Albumin 2.8 L (3.4-5.0) gm/dl Urine 03/10/24 Range/Units 12:33 Urine Color Dark Yellow Urine Appearance Turbid A (Clear) Urine pH 5.5 (4.5-7.5) Ur Specific [place] 1.039 H (1.000-1.030) Urine Protein 3+ H (Negative) Urine Glucose (UA) Negative (Negative) Diagnostic Findings Chest X-Ray 03/10/24 11:22 XR chest 1V portable CLINICAL HISTORY: Sepsis TECHNIQUE: Single frontal radiograph of the chest was obtained. Comparison: Comparison is made to chest radiograph 02/24/2024 FINDINGS: Exam is limited by underpenetration. Cardiomegaly is noted. The lungs are clear. No evidence of pleural effusion or pneumothorax. IMPRESSION: No acute chest disease. Cardiomegaly is noted. ACT 112: Negative or not required by law. Electronically signed by: James Nuñez M.D. 03/10/2024 11:54 AM Abdomen/Pelvis CT 03/10/24 11:24 CT SCAN OF THE ABDOMEN AND PELVIS WITH IV CONTRAST CLINICAL HISTORY: Upper abdominal pain. Hypotension COMPARISON STUDY: Abdominal CT dated 02/24/2024. TECHNIQUE: Following the IV administration of 120 cc of Optiray 320, CT scan of the abdomen and pelvis is performed from the lung bases to the proximal femora. Images are reviewed in the axial, sagittal, and coronal planes. IV contrast was administered without complication. A dose lowering technique was utilized adhering to the principles of ALARA. The examination is degraded by suboptimal patient positioning within the CT gantry. FINDINGS: Lung bases: The heart is top normal in size and without pericardial effusion. There are scattered calcified granulomas. Scarring/atelectasis is noted at the lung bases. No airspace consolidation or pleural effusion is identified. A 9 mm left lower lobe pulmonary nodule is seen on image #332. Liver: The contrast-enhanced liver is top normal in size and heterogeneous in attenuation. Again seen is evidence of extensive/multifocal hepatic metastatic disease. The largest right lobe lesion is seen on image #90 and measures up to 7.5 cm. There is no intrahepatic biliary ductal dilatation. The hepatic veins and portal veins are patent. Gallbladder: Gallstones/sludge is suspected. The gallbladder is distended, with no CT evidence of acute cholecystitis. Spleen: Normal in size and attenuation. Pancreas: There is a heterogeneous low-attenuation mass lesion seen in the pancreatic tail on image #133. This measures approximately 5 x 4 cm. The pancreatic head and proximal body are normal in appearance. The mass closely approximates and likely encases the splenic vein. Adrenal glands: Unremarkable. Kidneys: The contrast enhanced kidneys are normal in size and without hydronep hrosis. The kidneys enhance symmetrically. There is a 2.3 cm calculus in the right renal pelvis seen on image #223. No ureteral stone is seen. There is a 1.8 cm cyst in the left upper pole. Abdominal vasculature: The abdominal aorta is normal in course and caliber noting mild atherosclerotic calcification. Bowel: There is moderate sigmoid diverticulosis without CT evidence of acute diverticulitis. No bowel obstruction is identified. Duodenal diverticula are noted. The appendix is normal appearance. Peritoneum: There is a small volume of perihepatic ascites as well as trace pelvic ascites. No intraperitoneal free air is seen. Lymphadenopathy: There are prominent upper abdominal lymph nodes. There is a micah hepatis measure up to 14 mm in short axis. A node below the diaphragmatic hiatus on image #114 measures 10 mm in length. Pelvic viscera: The bladder is decompressed and grossly unremarkable. The prostate gland is diminutive and heterogeneous. The seminal vesicles are normal as imaged. Skeletal structures: The skeletal structures are osteopenic. There is moderate lumbosacral spondylosis. No lytic or blastic lesions are seen. Advanced arthritic change is seen in the hips, left greater than right. IMPRESSION: 1. No acute infectious or inflammatory findings are identified in the abdomen or pelvis. 2. A large pancreatic tail mass and multifocal hepatic metastatic disease is similar to 02/24/2024 examination. Metastatic pancreatic adenocarcinoma is the diagnosis of exclusion. Correlate with the oncological history. 3. Small volume perihepatic and pelvic ascites. This is increased from previous. 4. Suspect gallstones/biliary sludge. There is no CT evidence of acute cholecystitis. 5. A 9 mm pathologically indeterminate pulmonary nodule is seen at the left lung base. 6. Right-sided nephrolithiasis. 7. Sigmoid diverticulosis without CT evidence of acute diverticulitis. 8. Additional findings as above. ACT 112: Negative or not required by law. Electronically signed by: Elbert Wen M.D. 03/10/2024 12:44 PM Chest CTA 03/10/24 11:24 CT angio chest PE protocol CLINICAL HISTORY: PE TECHNIQUE: Multidetector row helical CT of the chest was performed with angiographic protocol. Coronal and sagittal reformations were obtained. Coronal and sagittal MIPS were obtained from the axial data set and were submitted for review. Automated dose lowering techniques and/or adjustment according to patient size were utilized for this exam. CT DOSE: 3434.12 mGy.cm Comparison: Comparison is made to CT chest 02/24/2024 FINDINGS: Lungs and pleura: Pulmonary nodules are seen including a 4 mm nodule in the left upper lobe (series 4 image 173) and a 7 mm nodule in the left lower lobe (image 111). Heart and pericardium: There is cardiomegaly without evidence of pericardial effusion. Vessels: No evidence of pulmonary embolism. Mediastinum and seema: Unremarkable. Chest wall and lower neck: Unremarkable. Abdomen: Unremarkable. Bones: Degenerative changes in the thoracic spine. IMPRESSION: 1. No acute abnormality and in particular no evidence of pulmonary embolus. 2. Stable pulmonary nodules as above. ACT 112: Negative or not required by law. Electronically signed by: James Nuñez M.D. 03/10/2024 12:[address] 03/10/24 13:19 CT OF THE HEAD WITHOUT CONTRAST CLINICAL HISTORY: Syncopal episode. COMPARISON STUDY: No previous studies for comparison. CT DOSE: 1200.25 mGy.cm TECHNIQUE: Helical axial images of the head were obtained without IV contrast. Automated exposure control was utilized for the study. A dose lowering technique was utilized adhering to the principles of ALARA. FINDINGS: No acute intracranial hemorrhage is identified although sensitivity is mildly diminished given intravascular contrast from recent contrast-enhanced CT. The ventricular system is unremarkable. The basal cisterns are patent. No extra- axial collections are present. There are no findings to suggest acute dural sinus thrombosis or acute territorial infarct. No significant calvarial abnormalities are present. Visualized portions of the sinuses and mastoid air cells are clear. IMPRESSION: No acute intracranial findings. ACT 112: Negative or not required by law. Electronically signed by: Cj Anne M.D. 03/10/2024 2:03 PM Medications Administered Discontinued Medications Sodium Chloride (Nss) 1,000 mls @ 999 mls/hr IV .Q1H1M ONE Stop: 03/10/24 12:22 Last Infusion: 03/10/24 13:35 Dose: Infused Documented By: Admin: 03/10/24 12:26 Dose: 999 mls/hr Documented By: YINA Sodium Chloride (Nss) 1,000 mls @ 999 mls/hr IV .Q1H1M ONE Stop: 03/10/24 12:57 Last Admin: 03/10/24 13:22 Dose: 999 mls/hr Documented By: AILIN Magnesium Sulfate/Dextrose (Magnesium Sulfate / D5w) 1 gm in 100 mls @ 100 mls/hr IV NOW STA Stop: 03/10/24 14:12 Last Admin: 03/10/24 13:22 Dose: 100 mls/hr Documented By: AILIN Sodium Chloride (Nss) 500 mls @ 999 mls/hr IV .Q31M ONE Stop: 03/10/24 13:43 Last Admin: 03/10/24 13:22 Dose: 999 mls/hr Documented By: AILIN Ioversol (Optiray 320 125ml) 120 ml IV ONCE ONE Stop: 03/10/24 12:05 Last Admin: 03/10/24 12:05 Dose: 120 ml Documented By: OCHOA Phytonadione (Phytonadione 5 Mg Tab) 2.5 mg PO NOW STA Stop: 03/10/24 13:49 Last Admin: 03/10/24 14:05 Dose: 2.5 mg Documented By: AILIN ECG Additional Comments: Admitting EKG showing atrial fibrillation w/ HR 100bpm and QTc interval 443ms. When compared to EKG performed on 02/24/24, no significant change was found. Code Status & VTE Plan Code Status FULL CODE VTE Prophylaxis Plan VTE Prophylaxis will be ordered: Yes (1) Syncope Syncope type: unspecified Qualified Code(s): R55 - Syncope and collapse (3) Urinary tract infection Hematuria presence: with hematuria Urinary tract infection type: site unspecified Qualified Code(s): N39.0 - Urinary tract infection, site not specified; R31.9 - Hematuria, unspecified
--- NOTE | 2024-03-10 14:22 | Communication Note ---
Date of Service: March 10, 2024 Attending Addendum: Case reviewed with the advanced practitioner. I have personally performed a history and physical examination on the patient. I have reviewed the advanced practitioner's documentation on the date of service referenced in note, and I agree with, and take responsibility for the plan of care. please refer to her notes for full details patient seen and examined, records reviewed by myself as well on exam, patient seen resting in bed, comfortable, awake, alert, oriented, pleasant, joking states he feels that he is improving compared to earlier denies active headache, dizziness, nausea, chest pain, abdominal pain, nausea/vomiting, problems with urination/BMs oral intake has been poor for the past few days, has stopped diuretics recently as legs are not swollen as per no other symptoms VS noted and reviewed oriented x 3, not in distress, speaks in sentences with no effort nor accessory muscle use (+) dry oral mucosa normal rate, regular rhythm, no murmurs clear breath sounds bilaterally non distended, soft, nontender pretty cath: (+) pink tinged urine no bipedal edema, erythema, warmth no neuro deficits all labs, imaging noted and reviewed ASSESSMENT AND PLAN SYNCOPE LIKELY SECONDARY TO HYPOTENSION, HYPOVOLEMIA, ACUTE KIDNEY INJURY, POOR ORAL INTAKE BP improving after 2 L fluid bolus continue NSS at 125cc/hr monitor crea r/o Sepsis no focus identified at this time CT chest, CT abd no signs of infection ff up blood cultures empiric Cefepime IV for now Chronic A fib HR 100 replaced Mg of 1.3 monitor in Tele check CT head check Cortisol, TSH CT chest no PE other diagnoses and plan of care as per advanced practitioner's notes total time spent reviewing records, chart, evaluating patient at bedside, coordinating care with NIKOLE 30 minutes Mark Angeles MD
[2024-03-10 14:38] LABS: Thyroid Stimulating Hormone 3.273 uIu/ml (0.300-4.500)
[2024-03-10] MEDS ORDERED: ALBUTEROL HFA 8 GM INHALER INH PRN (15:54)
[2024-03-10] MEDS ORDERED: POLYETHYLENE (MIRALAX) 17 GM PACK PO PRN (15:54)
[2024-03-10] MEDS: SODIUM CHLORIDE 0.9% 1,000 ML IV SCH (16:57)
[2024-03-10] MEDS: MAGNESIUM SULFATE / D5W 1 GM/100 ML BAG IV ONE (17:21)
[2024-03-10] MEDS: CEFEPIME 2,000 MG in SYRINGE 0 ML IV SCH (17:22)
[2024-03-10] MEDS ORDERED: GLUCOSE 10 TAB/TUBE PO PRN (18:03)
[2024-03-10] MEDS ORDERED: DEXTROSE 50% 50 ML SYRINGE IV PRN (18:03)
[2024-03-10] MEDS ORDERED: GLUCOSE 40% GEL 15 GM TUBE PO PRN (18:03)
[2024-03-10] MEDS ORDERED: CARBOHYDRATES FOR HYPOGLYCEMIA PO PRN (18:03)
[2024-03-10] MEDS ORDERED: PHARMACY GLYCEMIC MGMT CONSULT PRN (18:03)
[2024-03-10] MEDS ORDERED: GLUCAGON FOR INJ 1 MG VIAL SQ PRN (18:03)
--- NOTE | 2024-03-10 19:01 | Pharmacy Report ---
Pharmacy Glycemic Short Note 2 - Date of Service March 10, 2024 - Glycemic Short BSG Results (Last 24 hours): 03/10/24 03/10/24 11:30 11:42 Glucose 180 H POC Glucose (other) 192 H OUTPATIENT ANTIDIABETIC REGIMEN: * No anti-diabetic medications at home * HbA1c: 7.1% (02/25/24) * Repeat HbA1c ordered for 03/11/24 ASSESSMENT: * 64 yo M admitted on 03/10/24 secondary to sepsis. Pharmacy has been consulted to assist with inpatient glycemic management. Patient appears to be a diet- controlled T2 diabetic as an outpatient. Please refer to outpatient regimen and most recent HbA1c above. * Receiving Cefepime. Ordered a regular diet. Added a T2DM diet as well. * Serum BSG was 180 mg/dL this morning as well as a POC BSG of 192 mg/dL. * Will start Novolog based on weight/stress of 1. Will order a small dose of basal x 1 dose this evening. Reassess basal in AM PLAN FOR INPATIENT GLYCEMIC CONTROL: * Basal insulin * Lantus 10 units SC x 1 at tonight * Reassess basal in AM * Bolus insulin * NovoLog per scale ACHS or Q6hrs while NPO * Goal Range: Low 110 mg/dL - High 140 mg/dL * Correction Factor: 25 mg/dL/unit * Nutritional / Prandial insulin per carb ratio of 1 unit per 8 grams CHO consumed
--- OUTSIDE RECORDS SUMMARY | 2024-03-10 19:20 | External Medical Summary | Summary of Care ---
Author Name Unknown Organization [facility] Address [address] [place] [address] Phone [phone] Care Team Providers Care Marketing Project Coordinator Name Role Phone Jamey Koch MD Primary Care Provider +1- [phone] Reason for Visit * Reason Comments Acute Pt states that he jang s been feeling drowsy for about 3 weeks, feeling sick for about 2 months Encounter Details Date Type Department Care Team (Late st Contact Info) Description 02/24/2024 10:40 AM EDT Office Visit [facility] [address] [place] [address] Jamey Koch MD [address] [place] [address] Fatigue, unspecified type*; Lethargy; Nausea; Loss of weight; Hypotension, unspecified hypotension type Allergies No known active allergiesdocumented as of this encounter (statuses as of 03/09/2024) Medications Medication Sig Dispensed Refills Start Date End Date Status ASPIRIN 81 MG PO CHEW One pill by mouth once a day with food 100 Tab 5 0 Active Warfarin Sodium 7.5 MG Oral Tablet (Coumadin)Indicati ons: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,USP current use of 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 therapy [...] for Pain, Mild. 30 Tablet 3 Active Metoprolol Succinate 50 MG Oral [...] for 2 days 30 Tablet 4 Active Additional Information Patient not taking.Reported on 02/24/2024 Spironolactone 25 MG Oral Tablet (Aldactone)Indicat ions:Acute on chronic heart failure with preserved ejection fraction (HCC) Take 0.5 Tablets by mouth in the morning. 45 Tablet 1 4 Active traMADol HCl ER 200 MG Oral Tablet Extended Release 24 Hour (Ultram ER)Indications:Con trolled substance agreement signed Take 1 Tablet by mouth in the morning. 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, [place] Atrial fibrillation 11/03/2012 Stasis dermatitis 03/03/2012 Dyslipidemia, goal LDL below 70 01/10/2012 documented as of this encounter (statuses as of 03/09/2024) Resolved Problems Problem Noted Date Diagnosed Date [...] as of this encounter (statuses as of 03/09/2024) Immunizations Name Administration Dates Next Due Hepatitis [...] Date Smoking Tobacco: Never Smokeless Tobacco: Never Tobacco Cessation:Counseling Given: Not Answered Alcohol Use Standard Drinks/Week Comments Not Currently [...] on file documented as of this encounter Last Filed Vital Signs Vital Sign Reading Time Taken Comments Blood Pressure 120/72 02/24/2024 10:34 AM EDT Pulse 88 02/24/2024 10:34 AM EDT Temperature 35.2 C (95.4 F) 02/24/2024 10:34 AM E DT Respiratory Rate 18 02/24/2024 10:34 AM EDT Oxygen Saturation 93% 02/24/2024 10:34 AM EDT Inhaled Oxygen Concentration - - Weight - - Height 182.9 cm (6') 02/24/2024 10:34 AM EDT Body Mass Index - - documented in this encounter Progress Notes * Jamey Koch MD - 02/24/2024 11:20 AM EDT Subjective: Candido Curry is a 64 year old male here today for Chief Complaint Patient presents with Acute Pt states that he has been feeling drowsy for about 3 weeks, feeling sick for about 2 months Here for an acute visit. Pt reports that he has not been feeling well for a few months In November had a resp illness. Increased problems with Gerd, gas Constipation Tired, dizzy. Not moving much Not short of breath Not eating well - 1 week As we were having the visit, pt became progressively more lightheaded. Stated that he felt he may pass out. Pale and diaphoretic. Past Medical History: Diagnosis Date Atrial fibrillation (HCC) 11/03/2012 Cellulitis of leg 05/20/2012 Chronic rhinitis 03/03/2012 DM type 2, goal A1c below 7 06/22/2010 Dyslipidemia, goal LDL below 100 01/10/2012 Edema 03/03/2012 HTN, goal below 140/80 04/14/2012 Per HTN Protocol #27. Hypoxemia 02/05/2013 MORBID OBESITY 07/24/2006 Obesity, morbid (more than 100 lbs over ideal weight or BMI > 40) (HCC) 03/03/2012 Open wound of knee, leg, and ankle 05/20/2012 ROHIT (obstructive sleep apnea) 12/04/2012 AHI 30.8 on split night sleep study on 11/21/12 DME: Hussein WYATT 02/05/13 2 LPM of oxygen bled through CPAP Primary localized osteoarthrosis, lower leg distant trauma R knee. Stasis dermatitis 03/03/2012 Vasculitis of skin 08/31/2013 Past Surgical History: Procedure Laterality Date KNEE ARTHROSCOPY/REPAIR LIGAMENT Mulitiple surgeries on both knees Review of patient's allergies indicates: No Known Allergies Current Outpatient Medications Medication Sig Dispense Refill ASPIRIN 81 MG PO CHEW One pill by mouth once a day with food 100 Tab 5 Warfarin Sodium 7.5 MG Oral Tablet (Coumadin) TAKE ONE-HALF TO ONE TABLET BY MOUTH DAILY DIRECTED BY ANTICOAG CLINIC 135 Tablet 3 Diclofenac Sodium 1 % External Gel (Voltaren) Apply 2 g topically to affected area in the morning and 2 g at noon and 2 g in the evening. Apply to joints as neede. Furosemide 20 MG Oral Tablet (Lasix) Take 1 Tablet by mouth daily as needed. For edema Ondansetron 4 MG Oral Tablet Disintegrating (Zofran) Place 1 Tablet on tongue every 8 hours as needed for Nausea. dissolve on tongue. 30 Tablet 1 HYDROcodone-Acetaminophen 5-325 MG Oral Tablet Take 0.5-1 Tablets by mouth every 8 hours as needed for Pain, Mild. 30 Tablet 0 Metoprolol Succinate 50 MG Oral Capsule ER 24 Hour Sprinkle Take 50 mg by mouth in the morning and 50 mg in the evening. 180 Capsule 0 Atorvastatin Calcium 40 MG Oral Tablet (Lipitor) TAKE 1 TABLET BY MOUTH ONCE DAILY IN THE EVENING 90 Tablet 3 Albuterol Sulfate HFA 108 (90 Base) MCG/ACT Inhalation Aerosol Solution INHALE 2 PUFFS BY MOUTH 4 TIMES DAILY NEEDED FOR SHORTNESS OF BREATH AND COUGH 54 g 1 Montelukast Sodium 10 MG Oral Tablet (Singulair) Take 1 Tablet by mouth in the morning. 30 Tablet 0 Warfarin Sodium 5 MG Oral Tablet (Coumadin) Take 2 tablets by mouth on Saturday and 1 tablet by mouthall other days as directed by anticoagulation clinic. 35 Tablet 2 Allopurinol 100 MG Oral Tablet (Zyloprim) TAKE 1 TABLET BY MOUTH IN THE MORNING 30 Tablet 1 Omeprazole 40 MG Oral Capsule Delayed Release (PriLOSEC) TAKE 1 CAPSULE BY MOUTH ONCE DAILY ONE HOUR BEFORE BREAKFAST 90 Capsule 3 Benzonatate 100 MG Oral Capsule (Tessalon Perles) Take 1 Capsule by mouth 3 times a day as needed for Cough. Do not cut, crush, or chew. 90 Capsule 1 Spironolactone 25 MG Oral Tablet (Aldactone) Take 0.5 Tablets by mouth in the morning. 45 Tablet 1 predniSONE 10 MG Oral Tablet (Deltasone) Take 5 tabs for 2 days, 4 tabs for 2 days, 3 tabs for 2 days, 2 tabs for 2 days 1 tab for 2 days (Patient not taking: Reported on 02/24/2024) 30 Tablet 0 traMADol HCl ER 200 MG Oral Tablet Extended Release 24 Hour (Ultram ER) Take 1 Tablet by mouth in the morning. 30 Tablet 0 No current facility-administered medications for this visit. Objective: BP 120/72 | Pulse 88 | Temp 35.2 C (95.4 F) (Tympanic) | Resp 18 | Ht 1.829 m (6') |SpO2 93% | BMI 52.25 kg/m | BSA 2.98 m GEN: Pale, weak, ill-appearing CHEST: CTA B CV: RRR ABD: Soft, NT/ND, No HSM, NABS EXT: No c,c,e Assessment and Plan: Fatigue, unspecified type (Primary) Lethargy Nausea Loss of weight Hypotension, unspecified hypotension type Pt with a variety of symptoms and feeling worse even during the time of visit. [place] that he may pass out and extreme weakness. Call ambulance for transport to ED for further eval. Will need stat labs, imaging, fluids, monitoring. 32 min with pt and chart review Jamey Koch MD documented in this encounter Nursing Notes * Lilia Luke LPN - 02/24/2024 10:34 AM EDT Candido Curry is a 64 year old male who presents today for Chief Complaint Patient presents with Acute Pt states that he has been feeling drowsy for about 3 weeks, feeling sick for about 2 months documented in this encounter Plan of Treatment Upcoming Encounters Date Type Department Care Team (Late Contact Info) Description 03/17/2024 6:30 AM EDT 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 [facility], Ruddy Munoz [address] [place] [address] [place] [address] [facility], [facility] [address] [place] [address] 03/24/2024 3:40 PM EDT Telemedicine [facility] [address] [facility] [address] Jamey Koch MD [address] [facility] [place] [id number] Health Maintenance Due Date Last Done Comments [...] history exists COVID-19 Vaccine ( season) 2023 Influenza Vaccine (FLU shot) (#1) 2024 05/28/2023, 10/16/2021, 08/14/2019, Additional history exists GFR 05/28/2024 05/28/2023, 11/26, 12/22/2022, Additional history exists Cologuard 01/02/2025 01/02/2022, 05/0 10/2021, 12/26/2021 Colorectal Cancer Screening 01/02/2025 DTaP,Tdap,and Td Vaccines (3 - Td or Tdap) 10/31/2026 10/31/2016, 06/18/2012 Lipid Panel 05/28/2028 05/28/2023, 02/23, 09/23/2020, Additional history exists Hepatitis B Vaccine Completed 03/18/2014, 10/13/2013, 09/14/2013 *BASELINE EKG FOR HTN Completed 05/28/2023 , 10/16/2021, 08/13/2019, Additional history exists HPV (Gardasil) Vaccine Aged Out No lo nger eligible based on patient's age to complete this topic MENINGOCOCCAL (MENACTRA/MENVEO) Aged Out No longer eligible based on patient's age to complete this topic documented as of this encounter Medical Devices Not on filedocumented as of this encounter Visit Diagnoses Diagnosis Fatigue, unspecified type- Primary Lethargy Other malaise and fatigue Nausea Nausea alone Loss of weight Hypotension, unspecified hypotension type documented in this encounter Care Teams Marketing Project Coordinator Relationship Specialty Start Date End Date Jamey Koch MD [address] [place] [address] PCP - General 03/06/06 documented as of this encounter"
--- OUTSIDE RECORDS SUMMARY | 2024-03-10 19:21 | External Medical Summary | Summary of Care ---
Author Name Unknown Organization [facility] Address [address] [place] [address] Phone [phone] Care Team Providers Care 3Rd Mate Name Role Phone Jamey Koch MD Primary Care Provider +1- [phone] Encounter Details Date Type Department Care Team (Late st Contact Info) Description 02/26/2024 Result Scan Unspecified Department <No scans attached> Allergies No known active allergiesdocumented as of this encounter (statuses as of 02/26/2024) Medications Medication Sig Dispensed Refills Start Date [...] hemoglobin A1c goal of less than 7.0% ([facility]) TAKE 1 CAPSULE BY MOUTH ONCE [...] Additional Information Patient not taking.Reported on 02/24/2024 traMADol HCl ER 200 MG Oral Tablet Extended Release 24 Hour (Ultram ER)Indications:Cont rolled substance agreement signed Take 1 Tablet by mouth in the morning. 30 Tablet 4 Active Spironolactone 25 MG Oral Tablet (Aldactone)Indicati ons:Acute on chronic heart failure with preserved ejection fraction (HCC) Take 0.5 Tablets by mouth in the morning. 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, [place] Atrial fibrillation 11/03/2012 Stasis dermatitis 03/03/2012 Dyslipidemia, goal LDL below 70 01/10/2012 documented as of this encounter (statuses as of 02/26/2024) Resolved Problems Problem Noted Date Diagnosed Date [...] as of this encounter (statuses as of 02/26/2024) Immunizations Name Administration Dates Next Due Hepatitis [...] Care Team (Late st Contact Info) Description 02/26/2024 6:15 PM EDT 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 [facility] Clinical Pharmacy Services, Ruddy Munoz [address] [place] [address] [place] [id number] [place] [address] Longstanding persistent atrial fibrillation (HCC)* 03/24/2024 3:40 PM EDT Telemedicine [facility] [address] [place] [facility] [place] [address] Jamey Koch MD [address] [place], [place] [phone] Health Maintenance Due Date Last Done Comments [...] Hepatitis B Vaccine Completed 03/18/2014, 10/13/2013, 09/14/2013 HPV (Gardasil) Vaccine Aged Out No lo nger eligible based on patient's age to complete this topic MENINGOCOCCAL (MENACTRA/MENVEO) Aged Out No longer eligible based on patient's age to complete this topic documented as of this encounter Medical Devices Not on filedocumented as of this encounter Procedures Procedure Name Priority Date/Time Associated Diagnosis Comments OUTSIDE LAB RESULTS 02/26/2024 documented in this encounter Results * OUTSIDE LAB RESULTS (02/26/2024) 02/26/2024 No Physician Data Unknown LABORATORY documented in this encounter Care Teams 3Rd Mate Relationship Specialty Start Date End Date Jamey Koch MD [address] [place] [address] PCP - General 03/06/06 documented as of this encounter
--- OUTSIDE RECORDS SUMMARY | 2024-03-10 19:21 | External Medical Summary | Summary of Care ---
Author Name Unknown Organization [facility] Address [address] [place] [address] Phone [phone] Care Team Providers Care Director Of Restaurant Name Role Phone Jamey Regan MD Primary Care Provider +1- [phone] Reason for Referral * Medication Prior Authorization - Closed Specialty Diagnoses / Procedures Referred By Shahbaz t Referred To Contact Diagnoses Controlled substance agreement signed Jamey Regan MD [address] [place] [address] Referral ID Status Reason Start Date Expiration Date Visits Re quested Visits Authorized [id number] Closed 999 115 Reason for Visit * Reason Onset Date Comments Medication Refill 02/29/2024 Encounter Details Date Type Department Care Team (Late st Contact Info) Description 02/29/2024 Refill [facility] [address] [place] [phone] Jamey Regan MD [address] [place] [address] Controlled substance agreement signed Allergies No known active allergiesdocumented as of this encounter (statuses as of 03/02/2024) Medications Medication Sig Dispensed Refills Start Date End Date Status ASPIRIN 81 MG PO CHEW One pill by mouth once a day with food 100 Tab 5 0 Active Warfarin Sodium 7.5 MG Oral Tablet (Coumadin)Indicati ons: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,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 current use of 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 therapy TAKE ONE-HALF [...] as of this encounter (statuses as of 03/02/2024) Active Problems Problem Noted Date Diagnosed Date [...] -- AHI 30.8, CPAP 8 cwp 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, [place] Atrial fibrillation 11/03/2012 Stasis dermatitis 03/03/2012 Dyslipidemia, goal LDL below 70 01/10/2012 documented as of this encounter (statuses as of 03/02/2024) Resolved Problems Problem Noted Date Diagnosed Date [...] as of this encounter (statuses as of 03/02/2024) Immunizations Name Administration Dates Next Due Hepatitis [...] Telephone Encounter - Jamey Regan MD - 03/02/2024 4:42 PM EDTSigned Prescriptions: Disp Refills traMADol HCl ER 200 MG Oral Tablet Extende*30 Tab*0 Sig: Take 1 Tablet by mouth in the morning.Authorizing Provider: JAMEY REGAN * Telephone Encounter - Moses Hancock [facility] - 03/02/2024 12:54 PM EDT Pending Prescriptions: Disp Refills traMADol HCl ER 200 MG Oral Tablet Extende*30 Tab*0 Sig: Take 1 Tablet by mouth in the morning. * Telephone Encounter - Moses Hancock RPh - 03/02/2024 12:53 PM EDT I have reviewed the patients controlled substance dispensing history in the Prescription Drug Monitoring Program in compliance with the [facility] regulations before prescribing a controlled substance. PDMP checked on 03/02/2024. Pending Prescriptions: Disp Refills traMADol HCl ER 200 MG Oral Tablet Extend*30 Tab*0 Sig: Take 1 Tablet by mouth in the morning. Last Visit: 02/24/2024 (in office), 01/27/2024 (telemedicine) Next Visit: 03/05/2024 Date medication was last filled: 02/03 Date medication is due for refill: 03/03 [facility] [address] [address] Is this request for a controlled substance? Yes and Urine Drug Screen Not completed Toxicology results: No results found. However, due to the size of the patient record, not all encounters were searched.Please check Results Review for a complete set of results. Please approve if appropriate. Thanks, Moses Hancock, PharmD Clinical Pharmacist [facility] ([facility]) [phone] 03/02/2024,12:53 PM documented in this encounter Plan of Treatment Upcoming Encounters Date Type Department Care Team (Late st Contact Info) Description 03/04/2024 6:45 AM EDT 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 [facility], Ruddy Munoz [address] [place] [address] [place] [address] [facility], [address] [place] [address] 03/05/2024 3:00 PM EDT Office Visit [facility] [address] [place] [facility] [phone] Jamey Regan MD [address] [place], [place] [phone] 03/17/2024 6:30 AM EDT 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 [facility] Clinical Pharmacy Services, Ruddy Munoz [address] [place] [address] [place] [address] [facility], [facility] [address] [place] [address] 03/24/2024 3:40 PM EDT Telemedicine [facility] [place] [address] [place] [address] Jamey Regan MD [address] [place] [address] Health Maintenance Due Date Last Done Comments [...] medications documented in this encounter Care Teams Director Of Restaurant Relationship Specialty Start Date End Date Jamey Regan MD [address] [place] [address] PCP - General 03/06/06 documented as of this encounter
--- OUTSIDE RECORDS SUMMARY | 2024-03-10 19:21 | External Medical Summary | Summary of Care ---
Author Name Unknown Organization [facility] Address [address] [place] [address] Phone [phone] Care Team Providers Care Microbiology Laboratory Manager Name Role Phone Jamey Koch MD Primary Care Provider +1- [phone] Reason for Visit * Reason Comments Dosage Adjustment Via Phone (anticoag in) Encounter Details Date Type Department Care Team (Late st Contact Info) Description 02/26/2024 6:15 PM EDT 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 [facility], Ruddy Munoz [address] [place] [address] [place] [address] [place] [address] Longstanding persistent atrial fibrillation (HCC)* Allergies No [...] hemoglobin A1c goal of less than 7.0% ([facility]) TAKE 1 CAPSULE BY MOUTH [...] -- AHI 30.8, CPAP 8 cwp 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 Warfarin managed in house while in hospital. Ayaka Fox Rph, Pharm.D. Clinical Pharmacist [facility] ([facility]) [phone] 02/26/2024,12:58 PM * Jenniffer Suarez blueprint processor - 02/26/2024 11:53 AM EDT Patient Phone Numbers Spoke with pt. He is currently admitted to [facility]. Reports his warfarin is being held, is waiting to have a biopsy of pancreatic mass done. Thank you, Jenniffer Suarez Associate Relations Specialist [facility] ([facility]) [phone] 02/26/2024,11:54 AM * Ayaka Fox RP - 02/26/2024 11:05 AM EDT Images from the original note were not included. Coumadin Clinic (region specific) Objective Current Warfarin Dose As of 02/26/2024 Warfarin maintenance plan: 2.5 mg (5 mg x 0.5) every Mon, Fri; 5 mg (5 mg x 1) all other days INR Result As of 02/26/2024 INR goal: 2.0-3.0 INR used for dosin.6 (02/26/2024) Assessment & Plan Warfarin Plan As of 02/26/2024 Full warfarin instructions: 02/25: Hold; 02/26: Hold; Otherwise 2.5 mg every Mon, Wed, Fri; 5 mg all other days Next INR check: 03/09/2024 Repeat PT/INR in 1.5 week(s) Weekly dose: decreased Additional Dosing Information: Description Home lap machine operator to contact patient with dose instructions as noted. Ayaka Fox RPh 02/26/2024, 11:05 AM * Ayaka Washington CPhT - 02/26/2024 8:36 AM EDT Received via [facility] Ayaka Scott CPhT Associate Relations Specialist III [facility] ([facility]) 02/26/2024,8:36 AM documented in this encounter Plan of Treatment Upcoming Encounters Date Type Department Care Team (Late st Contact Info) Description 02/28/2024 6:45 AM EDT 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 [facility], [address] [place] [address] [place] [address] 03/17/2024 6:30 AM EDT 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 [facility] Clinical Pharmacy Services, [address] [place] [address] [place] [address] 03/24/2024 3:40 PM EDT Telemedicine [facility] [address] [place] [phone] Jamey Koch MD [address] [place], [place] [phone] Health Maintenance Due Date Last Done Comments [...] Date/Time Associated Diagnosis Comments OUTSIDE LAB-PT/INR Routine 02/26/2024 documented in this encounter Results * OUTSIDE LAB-PT/INR (02/26/2024) INR-OUTSIDE LAB 4.6 History Per Patient LABORATORY documented in this encounter Visit Diagnoses Diagnosis Longstanding persistent atrial fibrillation (HCC)- Primary documented in this encounter Care Teams Microbiology Laboratory Manager Relationship Specialty Start Date End Date Jamey Koch MD [address] [place] [address] PCP - General 03/06/06 documented as of this encounter
--- OUTSIDE RECORDS SUMMARY | 2024-03-10 19:21 | External Medical Summary | Summary of Care ---
Author Name Unknown Organization [facility] Address [address] [place] [address] Phone [phone] Care Team Providers Care Hog Confinement System Manager Name Role Phone Jamey Koch MD Primary Care Provider +1- [phone] Encounter Details Date Type Department Care Team (Late st Contact Info) Description 03/04/2024 Telephone [facility] [address] [place] [address] Jamey Koch MD [address] [place] [address] Allergies No known active allergiesdocumented as of this encounter (statuses as of 03/04/2024) Medications Medication Sig Dispensed Refills Start Date [...] on 02/24/2024 Spironolactone 25 MG Oral Tablet (Aldactone)Indicati ons:Acute [...] as of this encounter (statuses as of 03/04/2024) Active Problems Problem Noted Date Diagnosed Date [...] -- AHI 30.8, CPAP 8 cwp 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 Pt has scheduled ov tomorrow. * Telephone Encounter - Iraida Bradford OSA - 03/04/2024 12:52 PM EDT 03/04/24 Rec paperwork for FMLA for pts to be able to care for . Paperwork placed in provider's mail bin today. When paperwork completed, fax to [phone]. Call pts to p/u a copy of the paperwork at [phone]. documented in this encounter Plan of Treatment Upcoming Encounters Date Type Department Care Team (Late st Contact Info) Description 03/05/2024 3:00 PM EDT Office Visit [place] [address] [place] [address] Jamey Koch MD [address] [place], [place] [phone] 03/17/2024 6:30 AM EDT [facility] Clinical Pharmacy Services, [address] [place] [address] [place] [address] 03/24/2024 3:40 PM EDT Telemedicine [address] [address] Jamey Koch MD [address] [place] [address] Health Maintenance Due Date Last Done Comments [...] filedocumented as of this encounter Care Teams Hog Confinement System Manager Relationship Specialty Start Date End Date [facility] Koch [facility] [address] [facility] [address] PCP - General 03/06/06 documented as of this encounter
--- OUTSIDE RECORDS SUMMARY | 2024-03-10 19:21 | External Medical Summary | Summary of Care ---
Author Name Unknown Organization [facility] Address [address] [place] [address] Phone [phone] Care Team Providers Care Lens Grinder And Polisher Name Role Phone Jamey Koch MD Primary Care Provider +1- [phone] Reason for Visit * Reason Onset Date Comments Hospital Follow-Up 03/04/2024 Ashley for [facility] x 2 Encounter Details Date Type Department Care Team (Late st Contact Info) Description 03/04/2024 Telephone Ancillary Department, [place] [address] [place] [address] Alfreda Torres, JERMAINE Hospital Follow-Up ([place]ley for [facility] x 2) Allergies No known active allergiesdocumented as of this encounter (statuses as of 03/05/2024) Medications Medication Sig Dispensed Refills Start Date End Date Status ASPIRIN 81 MG PO CHEW One pill by mouth once a day with food 100 Tab 5 0 Active Warfarin Sodium 7.5 MG Oral Tablet (Coumadin)Indicatio ns: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,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 current use of 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 therapy TAKE ONE-HALF [...] A1c goal of less than 7.0% ([facility]) TAKE 1 CAPSULE BY [...] as of this encounter (statuses as of 03/05/2024) Active Problems Problem Noted Date Diagnosed Date [...] -- AHI 30.8, CPAP 8 cwp 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 * Telephone Encounter - Alfreda Torres RN - 03/04/2024 3:08 PM EDT Attempted Phone Call Second Attempt Call Outcome Left Voicemail/Message and sent myG * Telephone Encounter - Alfreda Torres RN - 03/04/2024 2:38 PM EDT Transitions of Care Note Reason for Referral:Recent Admission Phone visit for follow up: ashley Admitted to: [facility], Date:02.24.24 Discharged to: home, Date: 03.03.24 Diagnosis driving hospitalization: Suspected metastatic pancreatic cancer Liver Mass Per hospital discharge : "At discharge, patient was recommended to follow-up with his PCP, oncology for biopsy results. He was also found to have elevated creatinine level of from 1.5 which is above his previous baseline. Itremained stable throughout the hospitalization. Patient will follow-up with PCP and obtain nephrology referral for further evaluation. Dr Gibbs's office will contact you for a follow up appointment. Should you not receive a timely call, please call the office to schedule a hospital follow up appointment.) Please follow-up with the anticoagulation clinic to make sure your INR is within therapeutic range" Left message for the patient to call the office. Appointment tomorrow with MD Ivory Maradiaga also reach out via myG Alfreda Torres RN documented in this encounter Plan of Treatment Upcoming Encounters Date Type Department Care Team (Late st Contact Info) Description 03/17/2024 6:30 AM EDT 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 [facility] Clinical [facility] Services, Ruddy Munoz [address] [place] [address] [place] [address] [facility], [address] [place] [address] 03/24/2024 3:40 PM EDT Telemedicine [facility], [place] [address] [place] [address] Jamey Koch MD [address] [place] [address] Health Maintenance Due Date Last Done Comments [...] filedocumented as of this encounter Care Teams Lens Grinder And Polisher Relationship Specialty Start Date End Date Jamey Koch MD [address] [place] [address] PCP - General 03/06/06 documented as of this encounter
--- OUTSIDE RECORDS SUMMARY | 2024-03-10 19:21 | External Medical Summary | Summary of Care ---
Author Name Unknown Organization [facility] Address [address] [place] [address] Phone [phone] Care Team Providers Care Admissions Director Name Role Phone Jamey Koch MD Primary Care Provider +1- [phone] Encounter Details Date Type Department Care Team (Late st Contact Info) Description 03/04/2024 Result Scan Unspecified Department Ayaka Fox, formerly [facility] [address] [place] [address] <No scans attached> Allergies No known active allergiesdocumented as of this encounter (statuses as of 03/04/2024) Medications Medication Sig Dispensed Refills Start Date End Date Status ASPIRIN 81 MG PO CHEW One pill by mouth once a day with food 100 Tab 5 0 Active Warfarin Sodium 7.5 MG Oral Tablet (Coumadin)Indicatio ns: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,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 [address] [place] [address] 03/24/2024 3:40 PM EDT Telemedicine [facility] [address] [facility] [phone] Jamey Koch MD [address] [facility] [place] [address] Health Maintenance Due Date Last Done Comments [...] Date/Time Associated Diagnosis Comments OUTSIDE LAB RESULTS 03/04/2024 documented in this encounter Results * OUTSIDE LAB RESULTS (03/04/2024) 03/04/2024 Ayaka Fox formerly [facility] LABORATORY documented in this encounter Care Teams Admissions Director Relationship Specialty Start Date End Date Jamey Koch MD [address] [place] [address] PCP - General 03/06/06 documented as of this encounter
--- OUTSIDE RECORDS SUMMARY | 2024-03-10 19:21 | External Medical Summary | Summary of Care ---
Author Name Unknown Organization [facility] Address [address] [place] [address] Phone [phone] Care Team Providers Care Warehouse Manager Name Role Phone Jamey Koch MD Primary Care Provider +1- [phone] Reason for Visit * Reason Comments Dosage Adjustment Via Phone (anticoag inic) Encounter Details Date Type Department Care Team (Late st Contact Info) Description 02/26/2024 6:15 PM EDT 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 Centralized Clinical Pharmacy Services, Ruddy Munoz [address] [place] [address] [place] [address] [place] [address] Longstanding persistent atrial fibrillation (HCC)* Allergies No known active allergiesdocumented as of this encounter (statuses as of 03/04/2024) Medications Medication Sig Dispensed Refills Start Date End Date Status ASPIRIN 81 MG PO CHEW One pill by mouth once a day with food 100 Tab 5 0 Active Warfarin Sodium 7.5 MG Oral Tablet (Coumadin)Indicati ons: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,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 He is currently admitted to [facility]. Reports his warfarin is being held, is waiting to have a biopsy of pancreatic mass done. Thank you, Jenniffer Suarez Extension Work Director [facility] Services ([facility]) [phone] 02/26/2024,11:54 AM * Ayaka Fox RPh - 02/26/2024 11:05 AM EDT Images from [...] dose: decreased Additional Dosing Information: Description Home cut off machine unloader to contact patient with dose instructions as noted. Ayaka Fox RPh 02/26/2024, 11:05 AM * Ayaka Washington CPhT - 02/26/2024 8:36 AM EDT Received via [facility] Ayaka Scott CPhT Extension Work Director III [facility] Pharm[facility] Services ([facility]) 02/26/2024,8:36 AM documented in this encounter Plan of Treatment Upcoming Encounters Date Type Department Care Team (Late st Contact Info) Description 03/05/2024 3:00 PM EDT Office Visit [place] [address] [place] [phone] Jamey Koch MD [address] [place] [address] 03/17/2024 6:30 AM EDT 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 [facility] Clinical Pharmacy Services, [facility] Tammy [address] [place] [address] [place] [address] [place] [address] 03/24/2024 3:40 PM EDT Telemedicine [place] [address] [place] [address] Jamey Koch MD [address] [place] [address] Health Maintenance Due Date Last [...] 08/14/2019, Additional history exists GFR 05/28/2024 05/28/2023, 04/, [...] Primary documented in this encounter Care Teams Warehouse Manager Relationship Specialty Start Date End Date Jamey Koch MD [address] [place] [address] PCP - General 03/06/06 documented as of this encounter
--- OUTSIDE RECORDS SUMMARY | 2024-03-10 19:21 | External Medical Summary | Summary of Care ---
Author Name Unknown Organization [facility] Address [address] [place] [address] Phone [phone] Care Team Providers Care Head School Custodian Name Role Phone Jamey Koch MD Primary Care Provider +1- [phone] Encounter Details Date Type Department Care Team (Late st Contact Info) Description 02/24/2024 Result Scan Unspecified Department <No scans attached> Allergies No known active allergiesdocumented as of this encounter (statuses as of 03/06/2024) Medications Medication Sig Dispensed Refills Start Date End Date Status ASPIRIN 81 MG PO CHEW One pill by mouth once a day with food 100 Tab 5 0 Active Warfarin Sodium 7.5 MG Oral Tablet (Coumadin)Indicatio ns: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,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 current use of 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 therapy TAKE ONE-HALF [...] goal of less than 7.0% ([facility]) TAKE 1 CAPSULE BY MOUTH [...] as of this encounter (statuses as of 03/06/2024) Active Problems Problem Noted Date Diagnosed Date [...] -- AHI 30.8, CPAP 8 cwp 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, [place] Atrial fibrillation 11/03/2012 Stasis dermatitis 03/03/2012 Dyslipidemia, goal LDL below 70 01/10/2012 documented as of this encounter (statuses as of 03/06/2024) Resolved Problems Problem Noted Date Diagnosed Date [...] as of this encounter (statuses as of 03/06/2024) Immunizations Name Administration Dates Next Due Hepatitis [...] Contact Info) Description 03/17/2024 6:30 AM EDT [facility] Clinical Pharmacy Services, Ruddy Munoz [address] [place] [address] [place] [address] [place] [address] 03/24/2024 3:40 PM EDT Telemedicine [address] [place] [phone] Jamey Koch MD [address] [place] [facility] [address] Health Maintenance Due Date Last Done Comments [...] Procedure Name Priority Date/Time Associated Diagnosis Comments RADIOLOGY SCANNED RESULT 02/24/2024 documented in this encounter Results * RADIOLOGY SCANNED RESULT (02/24/2024) 02/24/2024 No Physician Data Unknown DIAGNOSTIC RAD IOLOGY SERVICES documented in this encounter Care Teams Head School Custodian Relationship Specialty Start Date End Date Jamey Koch MD [address] [place] [address] PCP - General 03/06/06 documented as of this encounter
--- OUTSIDE RECORDS SUMMARY | 2024-03-10 19:21 | External Medical Summary | Summary of Care ---
Author Name Unknown Organization [facility] Address [address] [place] [address] Phone [phone] Care Team Providers Care Hand Deicer Element Winder Name Role Phone Jamey Koch MD Primary Care Provider +1- [phone] Reason for Visit * Reason Comments Dosage Adjustment Via Phone (anticoag inic) Encounter Details Date Type Department Care Team (Late st Contact Info) Description 03/04/2024 6:45 AM EDT 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 Centralized Clinical Pharmacy Services, Ruddy Munoz [address] [place] [address] [place] [address] [place] [address] Longstanding persistent atrial fibrillation (HCC)* Allergies No known active allergiesdocumented as of this encounter (statuses as of 03/04/2024) Medications Medication Sig Dispensed Refills Start Date End Date Status ASPIRIN 81 MG PO CHEW One pill by mouth once a day with food 100 Tab 5 0 Active Warfarin Sodium 7.5 MG Oral Tablet (Coumadin)Indicatio ns: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,senior living current use of 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 therapy TAKE ONE-HALF [...] -- AHI 30.8, CPAP 8 cwp 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 Medication Therapy Disease Management - 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 Patient: Candido Curry | : 1960 Subjective Contacts Type Contact Phone/Fax 03/04/2024 03:49 PM EDT Phone (Outgoing) Candido Curry (Self) [phone] (M) Left Message Patient-Reported Symptoms: Patient Findings Positives: Hospital admission (Admitted to [facility] 02/23 - 03/03 for low BP, generalized weakness, nausea and abd pain) Objective Current Warfarin Dose As of 03/04/2024 Warfarin maintenance plan: 2.5 mg (5 mg x 0.5) every Mon, Wed, Fri; 5 mg (5 mg x 1) all other days INR Result As of 03/04/2024 INR goal: 2.0-3.0 INR used for dosin.5 (03/04/2024) Assessment & Plan Warfarin Plan As of 03/04/2024 Full warfarin instructions: 03/04: 5 mg; Otherwise 5 mg every Sat, e, Estephanie; 2.5 mg all other days Next INR check: 03/16/2024 Repeat PT/INR in 1.5 week(s) -- to see full effect of weekly dose recommendation Weekly dose: decreased Additional Dosing Information: Description Home machine Melissa Roberts [facility] Clinical Pharmacist 03/04/2024, 3:48 PM documented in this encounter Plan of Treatment Upcoming Encounters Date Type Department Care Team (Late st Contact Info) Description 03/05/2024 3:00 PM EDT Office Visit [facility] [address] [facility] [phone] Jamey Koch MD [address] [facility] [phone] 03/17/2024 6:30 AM EDT 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 Centralized Clinical Pharmacy Services, [place] [address] [address] [facility], [facility] [address] [place] [address] 03/24/2024 3:40 PM EDT Telemedicine [facility] [address] [facility] [address] Jamey Koch MD [address] [facility] [place] [phone] Health Maintenance Due Date Last Done Comments [...] Date/Time Associated Diagnosis Comments OUTSIDE LAB-PT/INR Routine 03/04/2024 documented in this encounter Results * OUTSIDE LAB-PT/INR (03/04/2024) INR-OUTSIDE LAB 1.5 HOME FINGERSTIC K DEVICE History Per Patient LABORATORY HOME FINGERSTICK DEVICE documented in this encounter Visit Diagnoses Diagnosis Longstanding persistent atrial fibrillation (HCC)- Primary documented in this encounter Care Teams Hand Deicer Element Winder Relationship Specialty Start Date End Date Jamey Koch MD [address] [place] [address] PCP - General 03/06/06 documented as of this encounter"
--- OUTSIDE RECORDS SUMMARY | 2024-03-10 19:21 | External Medical Summary | Summary of Care ---
Author Name Unknown Organization [facility] Address [address] [place] [address] Phone [phone] Care Team Providers Care Surgical Consultant Name Role Phone Jamey Koch MD Primary Care Provider +1- [phone] Reason for Visit * Reason Comments Dosage Adjustment Via Phone (anticoag inic) Encounter Details Date Type Department Care Team (Late st Contact Info) Description 02/28/2024 6:45 AM EDT 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 Centralized Clinical Pharmacy Services, Ruddy Munoz [address] [place] [address] [place] [address] [place] [address] Atrial fibrillation, unspecified type (HCC)* Allergies No known active allergiesdocumented as of this encounter (statuses as of 02/28/2024) Medications Medication Sig Dispensed Refills Start Date [...] as of this encounter (statuses as of 02/28/2024) Active Problems Problem Noted Date Diagnosed Date [...] -- AHI 30.8, CPAP 8 cwp 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 Per CM note, plan is home at discharge Ayaka Fox Rph, Pharm.D. Clinical Pharmacist Centralized Clinical Pharmacy Services ([facility]) [phone] 02/28/2024,2:12 PM documented in this encounter Plan of Treatment Upcoming Encounters Date Type Department Care Team (Late st Contact Info) Description 03/02/2024 6:45 AM EDT 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 Centralized Clinical Pharmacy Services, [address] [place] [address] [facility], [address] [place] [address] 03/17/2024 6:30 AM EDT 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 Centralized Clinical Pharmacy Services, [address] [place] [address] [facility], [address] [place] [address] 03/24/2024 3:40 PM EDT Telemedicine [facility] [address] [place] [phone] Jamey Koch MD [address] [place] [address] Health Maintenance Due Date Last Done Comments [...] as of this encounter Visit Diagnoses Diagnosis Atrial fibrillation, unspecified type (HCC)- Primary documented in this encounter Care Teams Surgical Consultant Relationship Specialty Start Date End Date Jamey Koch MD [address] [place] [address] PCP - General 03/06/06 documented as of this encounter
--- OUTSIDE RECORDS SUMMARY | 2024-03-10 19:21 | External Medical Summary | Summary of Care ---
Author Name Unknown Organization [facility] Address [address] [place] [address] Phone [phone] Care Team Providers Care Rate Supervisor Name Role Phone Jamey Koch MD Primary Care Provider +1- [phone] Reason for Visit * Reason Comments Dosage Adjustment Via Phone (anticoag inic) Encounter Details Date Type Department Care Team (Late st Contact Info) Description 03/02/2024 6:45 AM EDT 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 Centralized Clinical Pharmacy Services, Ruddy Munoz [address] [place] [address] [place] [address] [place] [address] Atrial fibrillation, unspecified type (HCC)* Allergies No [...] -- AHI 30.8, CPAP 8 cwp 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 No d/c plans noted yet. [facility] will continue to follow up. Ayaka Fox Rph, Pharm.D. Clinical Pharmacist Centralized Clinical Pharmacy Services ([facility]) [phone] 03/02/2024,10:44 AM documented in this encounter Plan of Treatment Upcoming Encounters Date Type Department Care Team (Late st Contact Info) Description 03/17/2024 6:30 AM EDT 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 [facility] Clinical Pharmacy Services, [address] [place] [address] [facility], [address] [place] [address] 03/24/2024 3:40 PM EDT Telemedicine [place] [address] [place] [address] Jamey Koch MD [address] [place] [address] Health Maintenance Due Date Last [...] exists COVID-19 Vaccine ( - season) 2023 Influenza Vaccine (FLU shot) (#1) [...] Primary documented in this encounter Care Teams Rate Supervisor Relationship Specialty Start Date End Date Jamey Koch MD [address] [place] [address] PCP - General 03/06/06 documented as of this encounter
[2024-03-10] MEDS: INSULIN ASPART PER UNIT CHARGE SC SCH (20:28)
[2024-03-10] MEDS: CALCIUM CARBONATE 1,250 MG/5 ML UDC PO SCH (20:35)
[2024-03-10] MEDS: MAGNESIUM OXIDE 400 MG TAB PO SCH (20:35)
[2024-03-10] MEDS: TRAMADOL 200 MG PO SCH (20:36)
[2024-03-10] MEDS: ATORVASTATIN 40 MG TAB PO SCH (20:36)
[2024-03-10] MEDS: PATIENT'S OWN CONTROLLED MED 1 PO SCH (20:37)
[2024-03-10] MEDS ORDERED: LANTUS PER UNIT CHARGE SC ONE (21:00)
[2024-03-11] MEDS: SIMETHICONE 80 MG CHEW PO ONE (05:10)
[2024-03-11] MEDS: PANTOprazole 40 MG TAB PO SCH (06:09)
[2024-03-11 07:57] LABS: Estimated Average Glucose 146 mg/dl; Hemoglobin A1C 6.7 % (4.5-5.6)
[2024-03-11 08:09] LABS: Albumin Globulin Ratio 0.5 (0.9-2); Albumin Level 2.2 gm/dl (3.4-5.0); BUN Creatinine Ratio 14.6 (10-20); Bilirubin,Total 0.8 mg/dl (0.2-1.0); Calcium 7.7 mg/dl (8.6-10.3); Creatinine Clr Calc Pharmacy 74.7 ml/min; Est GFR (African American) 48.7 ml/min; Globulin 4.7 gm/dl (2.5-4.0); Magnesium 1.5 mg/dl (1.7-2.4); Phosphorus 2.6 mg/dl (2.5-4.9); Potassium 4.5 mmol/L (3.5-5.1); Total Protein 6.9 gm/dl (6.0-8.3)
[2024-03-11 08:13] LABS: INR 3.6 (0.9-1.1); Prothrombin Time 35.3 Seconds (9.0-12.0)
[2024-03-11] MEDS: allopurinoL 100 MG TAB PO SCH (08:22)
--- NOTE | 2024-03-11 08:27 | Nephrology Consultation ---
Date of Consultation March 11, 2024 Assessment & Plan (1) Worsening renal function: a year ago creatinine 1.1; then 1.3 last fall in wake of starting aldactone and possibly in setting of a stone. now 1.7 for this hospital stay and other one earlier this month. some relative hypotension prior to presentation -- sbp in 90s on arrival. very symptomatic w/ position change, mary standing but w/ his body habitus not able to safely check orthostatics. he had IV contrast on presentation, so renal funciton may worsen. 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 700 mg protienuria and microhematuria may relate to stones or other. chronicity of renal dysfunction unclear >> ? subacute?, chronic? evidence also of emerging liver dysfunction > INR, albumin issues. TTE suboptimal study/poor windows > but no screaming pericardial effusion or valvular issues, EF preserved. DDX>chronic interstitial nephritis ? related to PPI; cancer related renal dysfunction; ? ischemic ATN related to cardiac arrhythmia or sepsis -continue NS at 125 ML hourly for now; he is so far 3.7L positive on the admission -daily bmp -strict I/O -f/u pending blood cultures and focus/narrow/stop abtx >>doubt sepsis as his WBC have been crhonically elevated >> diff is fairly abnormal >> low threshold for peripheral smear History of Present Illness Reason for Consultation: proteinuria, progressive CKD Requesting Physician: Dr Garza Attending Physician: Rell Garza MD History of Present Illness 64 y/o M whom I'm asked to see for proteinuria and progressive CKD was admitted yesterday for severe sepsis, UTI, and syncope. PMH includes chronic atrial fibrillation anticoagulated on warfarin, T2DM, HTN, HFpEF, ROHIT noncompliant with CPAP, supermorbid obesity. Also w/ 02/23-03/03 admission here w/ IR guided liver bx w/ path showing metastatic adenoCA. Pt syncopal episode occurred in waiting room at [facility] just before appt to discuss bx results. no albuminuria historically; creatinine one year ago in [facility] 1.1; was 1.3 in 05/2023 >> pt believes he may have been passing a kidney stone about then but not sure. no stone activity since. denies nsaid use. did have iv contrast on presentation to r/o PE. takes spironolactone, lasix as OP; aldactone started spring 2022. lasix rx unclear >>? outside source. for about the past month he's been burping and gagging and having lots of gas; decreased po intake b/c N, though feels hungry. N also w/ standing up, sitting. no sob, no cough or wheeze or orthopnea; no chest pain or palpitations. has intermittent inconsistent abdominal pain. no edema. BL knee pain else no joint pain. no f/c. + wt loss. no new/worrisome voiding sx including no dysuria or sense of incomplete void or foamy urine. Allergies Allergy/AdvReac Type Severity Reaction Status Date / Time No Known Allergies Allergy Mild Verified 03/10/24 13:28 Home Medications Medication Instructions Recorded Confirmed Type albuterol sulfate 90 mcg/actuation 2 puff inhalation QID PRN 11/11/22 03/10/24 History aerosol inhaler Shortness Of Breath and cough atorvastatin 40 mg tablet 40 mg PO QPM 11/11/22 03/10/24 History omeprazole 40 mg capsule,delayed 40 mg PO DAILYBB 11/11/22 03/10/24 History release furosemide 20 mg tablet (Lasix) 20 mg PO DAILY PRN edema #30 tabs 12/09/22 03/10/24 Rx spironolactone 25 mg tablet 12.5 mg (1/2 x 25 mg) PO QAM #30 12/09/22 03/10/24 Rx tabs tramadol 200 mg tablet,extended 200 mg PO HS 12/12/22 03/10/24 History release 24 hr allopurinol 100 mg tablet 100 mg PO QAM 02/24/24 03/10/24 History aspirin 81 mg chewable tablet 81 mg PO DAILY 02/24/24 03/10/24 History (Children's Aspirin) diclofenac sodium 1 % topical gel 2 g EXT TID PRN Pain 02/24/24 03/10/24 History (Voltaren Arthritis Pain) metoprolol succinate 50 mg 50 mg PO AMPM 02/24/24 03/10/24 History tablet,extended release 24 hr warfarin 5 mg tablet See Rx Instructions .Route .COMPLEX 02/24/24 03/10/24 History Patient History Medical History Chronic venous stasis Bacterial arthritis of both knees Surgical History H/O arthroscopic knee surgery Family History Other Heart disease Hypertension Social History Smoking Status: Never smoker Second Hand Exposure: No; Do You Dip or Chew Tobacco: No; Tobacco Cessation Education Requested by Patient: No Hx Alcohol Use: No Hx Substance Use: No Preferred Language: Somali Communication Ability: Effective Oil Developer Required: No Beliefs That Will Affect Care: None Current Living Situation: Spouse Feels Safe at Home: Yes Safety Concerns: Feels Safe At This Time Assistive Devices: Cane and Walker Review of Systems 2 Review of Systems: All systems reviewed & are unremarkable except as noted in HPI & below Physical Exam 2 Constitutional: well developed, well nourished, + morbidly obese and cooperative; no acute distress Eyes: EOM intact bilaterally ENMT: Ears: no external ear abnormality Nose: no external nose abnormality Mouth: + dry oral mucous membranes and + poor dentition Neck: no nuchal rigidity Respiratory: normal respiratory effort Auscultation: + diminished lung sounds Cardiovascular: Rate/Rhythm: + tachycardic and + irregularly irregular E xtremities: no edema Gastrointestinal (Abdomen): Inspection/Auscultation: normal bowel sounds P ercussion/Palpation: abdomen soft; abdomen nontender (except for marked epigastric TTP), no guarding and no fluid wave Musculoskeletal: Extremities: strength 5/5 throughout Skin: no rashes, warm and dry Neurologic: arellano, fluent speech, no tremor Psychiatric: Orientation: alert and oriented x 3 Results & Data Vital Signs (Past 12 Hours) Vital Signs Temp Pulse Pulse Resp BP Pulse Ox O2 Del Method 03/11/24 03:21 36.6 C 95 H 20 121/87 97 Room Air 03/10/24 23:00 93 H 03/10/24 22:34 36.8 C 101 H 18 128/82 93 Room Air Laboratory Results 03/11/24 07:30 UA no bacteria, 1+ protien, 3+ blood 1+ LE; 700 mg albuminuria Diagnostic Findings CT a/p w/ con 1. No acute infectious or inflammatory findings are identified in the abdomen or pelvis. 2. A large pancreatic tail mass and multifocal hepatic metastatic disease is similar to 02/24/2024 examination. Metastatic pancreatic adenocarcinoma is the diagnosis of exclusion. Correlate with the oncological history. 3. Small volume perihepatic and pelvic ascites. This is increased from previous. 4. Suspect gallstones/biliary sludge. There is no CT evidence of acute cholecystitis. 5. A 9 mm pathologically indeterminate pulmonary nodule is seen at the left lung base. 6. Right-sided nephrolithiasis. 7. Sigmoid diverticulosis without CT evidence of acute diverticulitis. CT PE protocol no clot; 2 stable [address]m nodules Head CT w/o acute process
[2024-03-11 08:29] LABS: Basophils # (auto) 0.06 K/uL (0.00-0.20); Basophils % (auto) 0.4 %; Eosinophils % (auto) 0.7 %; Hematocrit (blood only) 36.5 % (42.0-52.0); Hemoglobin 11.2 g/dl (14.0-18.0); Immature Granulocytes # (auto) 0.11 K/uL (0.01-0.20); Immature Granulocytes % (auto) 0.8 %; Lymphocytes # (auto) 0.96 K/uL (1.20-3.40); Lymphocytes % (auto) 6.9 %; Mean Corpuscular Hemoglobin 27.6 pg (25.0-34.0); Mean Corpuscular Hgb Conc 30.7 g/dL (32.0-36.0); Mean Corpuscular Volume 89.9 fL (80.0-100.0); Mean Platelet Volume 11.1 fL (9.4-12.4); Monocytes # (auto) 1.56 K/uL (0.11-0.59); Monocytes % (auto) 11.1 %; Neutrophils # (auto) 11.21 K/uL (1.40-6.50); Neutrophils % (auto) 80.1 %; Platelet Count 251 K/uL (130-400); Platelet Estimate Normal (Normal); RDW Coefficient of Variation 13.9 % (11.5-14.5); Red Blood Count 4.06 M/uL (4.70-6.10)
[2024-03-11 10:03] LABS: Appearance Urine Cloudy (Clear); Bacteria Urine Automated None Seen (None Seen); Bilirubin Urine Negative (Negative); Blood Urine 3+ (Negative); Cast Urine Automated >20 /lpf (0-2); Color Urine Yellow; Epithelial Cell Urine Auto 0-2 /hpf (0-2); Glucose Urine UA Negative (Negative); Ketones Urine Negative (Negative); Leukocyte Esterase Urine 2+ (Negative); Mucus Urine Present (None Prsent); Nitrite Urine Negative (Negative); Protein Urine 1+ (Negative); RBC Urine Automated >20 /hpf (0-2); Specific Gravity Urine 1.019 (1.000-1.030); Urobilinogen Urine Negative (Negative); WBC Urine Automated >50 /hpf (0-5)
[2024-03-11 10:27] LABS: Creatinine Urine Random 57.6 mg/dl; Protein Creatinine Ratio Urine 0.7 (0-0.2); Total Protein Urine Random 38.8 mg/dl (0-11.9)
--- NOTE | 2024-03-11 11:29 | Pharmacy Report ---
Pharmacy Glycemic Short Note 2 - Date of Service March 11, 2024 - Glycemic Short BSG Results (Last 24 hours): 03/10/24 03/10/24 03/10/24 11:30 11:42 20:16 Glucose 180 H POC Glucose 89 POC Glucose (other) 192 H 03/11/24 03/11/24 03/11/24 07:28 07:30 11:16 Glucose 91 POC Glucose 91 77 POC Glucose (other) OUTPATIENT ANTIDIABETIC REGIMEN: * No anti-diabetic medications at home * HbA1c: 7.1% (02/25/24) * Repeat HbA1c ordered for 03/11/24 ASSESSMENT: 03/11: * Basal cancelled last PM, HS BSG 89 mg/dL with limited intake, fasting this AM 91 mg/dL- continue to hold basal * Patient has received no correctional/prandial novolog at current time- will loosen parameters to be based on adjusted body weight for now- reassess as patient has more po intake 03/10 * 64 yo M admitted on 03/10/24 secondary to sepsis. Pharmacy has been consulted to assist with inpatient glycemic management. Patient appears to be a diet- controlled T2 diabetic as an outpatient. Please refer to outpatient regimen and most recent HbA1c above. * Receiving Cefepime. Ordered a regular diet. Added a T2DM diet as well. * Serum BSG was 180 mg/dL this morning as well as a POC BSG of 192 mg/dL. * Will start Novolog based on weight/stress of 1. Will order a small dose of basal x 1 dose this evening. Reassess basal in AM PLAN FOR INPATIENT GLYCEMIC CONTROL: * Basal insulin * hold * Bolus insulin * NovoLog per scale ACHS or Q6hrs while NPO * Goal Range: Low 110 mg/dL - High 140 mg/dL * Correction Factor: 35 mg/dL/unit * Nutritional / Prandial insulin per carb ratio of 1 unit per 15 grams CHO consumed
--- NOTE | 2024-03-11 12:34 | Oncology Consultation ---
Date of Consultation March 11, 2024 Assessment & Plan (1) Pancreatic adenocarcinoma: Plan Patient recently diagnosed with stage IV adenocarcinoma likely pancreatic adenocarcinoma. Pathology from recent liver biopsy was consistent with either pancreatic adenocarcinoma versus cholangiocarcinoma. Imaging consistent with metastatic pancreatic cancer given large pancreatic tail mass. Discussed overall prognosis and treatment options for metastatic pancreatic cancer. Unfortunately, metastatic pancreatic cancer has very poor prognosis even with systemic therapy with average overall survival of about a year. If he decides to receive systemic therapy, goals of treatment would be to prolong life and improve symptoms. Options include single agent gemcitabine, gemcitabine/Abraxane or FOLFIRINOX. Given poor performance status, he would not be candidate for gemcitabine/Abraxane or FOLFIRINOX. Patient however has multiple comorbidities, poor performance status which would make him more likely to have significant side effects from chemotherapy treatment. Also discussed role of immunotherapy such as Keytruda in patients with MSI high tumors- Currently awaiting Results of molecular testing on tumor sample to assess for this. Explained to him that microsatellite instability is rare in pancreatic cancer. Following extensive discussion, patient indicated that he would like some time to discuss with his family but was concerned considering supportive care/hospice. Would recommend palliative care evaluation to discuss goals of care as well as symptom management. Patient and agreed with this plan. Thank you for this consult. Will follow peripherally while patient is in the hospital. Please feel free to call if you have any further questions. History of Present Illness Reason for Consultation: Metastatic pancreatic carcinoma Attending Physician: Rell Garza MD History of Present Illness Very pleasant 64-year-old gentleman with multiple comorbidities including atrial fibrillation anticoagulated on warfarin, T2DM, HTN, chronic HFpEF, ROHIT noncompliant with CPAP, morbid obesity who was recently diagnosed with metastatic adenocarcinoma likely pancreatic versus cholangiocarcinoma. Patient was admitted to [facility] from 02/24/2024 to 03/03/2024 for hypotension, sepsis. During that admission, imaging was concerning for pancreatic cancer with pancreatic tail mass and hepatic metastasis. Ultrasound- guided liver biopsy was obtained during that admission on 03/02/2024. He had presented to [facility] yesterday to discuss biopsy results and was noted to to be diaphoretic, weak, Hypotensive and subsequently had syncopal episode for which he was transferred to the ER. He is currently on IV antibiotic for sepsis possibly secondary to UTI, receiving IV fluids for NONI due to hypotension. Complains of abdominal pain, dry heaves and fatigue Allergies Allergy/AdvReac Type Severity Reaction Status Date / Time No Known Allergies Allergy Mild Verified 03/10/24 13:28 Home Medications Medication Instructions Recorded Confirmed Type albuterol sulfate 90 mcg/actuation 2 puff inhalation QID PRN 11/11/22 03/10/24 History aerosol inhaler Shortness Of Breath and cough atorvastatin 40 mg tablet 40 mg PO QPM 11/11/22 03/10/24 History omeprazole 40 mg capsule,delayed 40 mg PO DAILYBB 11/11/22 03/10/24 History release furosemide 20 mg tablet (Lasix) 20 mg PO DAILY PRN edema #30 tabs 12/09/22 03/10/24 Rx spironolactone 25 mg tablet 12.5 mg (1/2 x 25 mg) PO QAM #30 12/09/22 03/10/24 Rx tabs tramadol 200 mg tablet,extended 200 mg PO HS 12/12/22 03/10/24 History release 24 hr allopurinol 100 mg tablet 100 mg PO QAM 02/24/24 03/10/24 History aspirin 81 mg chewable tablet 81 mg PO DAILY 02/24/24 03/10/24 History (Children's Aspirin) diclofenac sodium 1 % topical gel 2 g EXT TID PRN Pain 02/24/24 03/10/24 History (Voltaren Arthritis Pain) metoprolol succinate 50 mg 50 mg PO AMPM 02/24/24 03/10/24 History tablet,extended release 24 hr warfarin 5 mg tablet See Rx Instructions .Route .COMPLEX 02/24/24 03/10/24 History Patient History Medical History Chronic venous stasis Bacterial arthritis of both knees Surgical History H/O arthroscopic knee surgery Family History Other Heart disease Hypertension Social History Smoking Status: Never smoker Second Hand Exposure: No; Do You Dip or Chew Tobacco: No; Tobacco Cessation Education Requested by Patient: No Hx Alcohol Use: No Hx Substance Use: No Preferred Language: Irish Communication Ability: Effective 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
--- NOTE | 2024-03-11 14:56 | Hospitalist Progress Note ---
Date of Service March 11, 2024 Assessment & Plan (1) Syncope: (2) Severe sepsis: (3) Urinary tract infection: (4) Supratherapeutic INR: (5) NONI (acute kidney injury): Plan Candido Curry is a 64y/o M with PMHx of chronic atrial fibrillation anticoagulated on warfarin, T2DM, HTN, chronic HFpEF, ROHIT noncompliant with CPAP, morbid obesity and other problems listed below who presented to the ED for evaluation secondary to a syncopal event. Of note, patient was recently admitted 02/23-03/03 with the following principal diagnoses: suspected metastatic pancreatic cancer and liver mass. Patient underwent IR-guided liver biopsy on 03/02 and was supposed to follow-up with Dr. Gibbs over at the [facility] on day of the admission to discuss the biopsy results. However, the patient became diaphoretic in the waiting room and subsequently passed out. He was found to be hypotensive as well at the [facility] and was therefore sent over to the ED. Syncopal Episode Possible Severe Sepsis, Possible UTI Patient meets criteria for severe sepsis 2/2 presenting HR > 90bpm, WBC count > 12K, present source of infection and lactic acidosis. BP was 97/63 on presentation - likely cause of syncopal episode. Pt received 2.5L NSS in ED --> BP improved to 137/98 at time of admission. Leukocytosis Elevated procal Head CT negative, CXR negative for acute disease process. CTAP w/ no acute infectious or inflammatory findings. Chest CTA negative for PE. UA concerning for possible UTI --> Will start pt on IV cefepime 2g Q8H. Urine culture pending, follow results and adjust ABX regimen PRN. Continue empiric antibiotics Follow up on urine and blood culture PT/OT Supratherapeutic INR Chronic Atrial Fibrillation INR 5.8 at time of admission. EKG showing afib, troponin negative. INR improved Restart Coumadin from tomorrow Acute Kidney Injury (NONI) on CKID Cr 1.9 on admission (baseline Cr ~1.4). Urinalysis suggestive of Proteinuria Patient had proteinuria in the past as well; Will obtain urine protein creatinine ratio. Obtain nephrology consultation Chronic HFpEF Last echo done 11/12/22 - results significantly limited 2/2 body habitus. DidRepeat echo on March 10 showed EF of 60 to 65% show grossly normal LV chamber size, normal LV systolic function. Hypomagnesemia Mag 1.3 upon presentation. Received 1g IV mag in ED; will order additional 1g IV mag. on PO supplement Liver Mass,likely metatstatic Pancreatic CA Patient underwent IR-guided liver biopsy on 03/02. Admitting CTAP showing a large pancreatic tail mass and multifocal hepatic metastatic disease is similar to 02/24/2024 examination. Discussed biopsy result. Likely stage IV adenocarcinoma likely pancreatic adenocarcinoma. Overall poor prognosis. Hematology on board; palliative consulted to discuss further goals of care HTN: Holding [employer] metoprolol succinate, Lasix and spironolactone for now 2/2 presenting hypotension Dyslipidemia: Can continue [employer] statin therapy. DVT Prophylaxis: SCDs/TEDs - Pt on warfarin [employer], will hold for now given sup ratherapeutic INR. Code Status: FULL CODE PCP: Jamey Koch MD Disposition: Admit to PCU/Telemetry.PT OT evaluation ordered Time spent evaluating patient, direct bedside care, chart review, placing orders, interpretation of diagnostic studies, discussion with consultants, patient, and family members, as well as other required patient management activities is 50 minutes Please note the above document was generated using voice recognition software. It may contain grammatical, syntax or spelling errors. Any formal questions or concerns about the content, text or information contained within the body of this dictation should be directly addressed to the provider for clarification Admission and Anticipated Discharge Date Admission Date: March 10, 2024 Subjective Patient seen and examined at bedside He is lying on the bed comfortably; not in distress Denies abdominal discomfort. He reports dizziness when he tries to sit up. No significant events overnight Review of Systems Review of Systems: All systems reviewed & are unremarkable except as noted in Subjective Physical Exam Physical Exam: Constitutional: Alert oriented x 3; not in distress. Morbidly obese. Respiratory: Bilateral vesicular breath sound Cardiovascular: RRR, no murmur, no edema Vessels: no JVD or carotid bruit Chest: normal inspection of chest Abdomen: Soft, nontender Musculoskeletal: no cyanosis or clubbing, extremities motor strength 5/5 Skin: no rashes, warm and dry normal turgor Neurologic: PERRL, EOMI, accommodation nl, no face palsy, no dysarthria CN's II- XI intact bilaterally and moves all extremities Psychiatric: A+Ox3, euthymic affect Results & Data Results & Data Vital Signs (Past 12 Hours) Vital Signs Temp Pulse Resp BP Pulse Ox O2 Del Method 03/11/24 11:34 37.0 C 97 H 15 136/79 94 Room Air 03/11/24 08:28 36.8 C 102 H 18 122/72 97 Room Air 03/11/24 08:26 Room Air 03/11/24 03:21 36.6 C 95 H 20 121/87 97 Room Air (1) Syncope Syncope type: unspecified Qualified Code(s): R55 - Syncope and collapse (3) Urinary tract infection Urinary tract infection type: site unspecified Hematuria presence: with hematuria Qualified Code(s): N39.0 - Urinary tract infection, site not specified; R31.9 - Hematuria, unspecified
[2024-03-12] MEDS: ONDANSETRON INJ 2 MG/ML 2 ML VIAL IV PRN (05:19)
[2024-03-12 06:34] LABS: Basophils # (auto) 0.06 K/uL (0.00-0.20); Basophils % (auto) 0.4 %; Eosinophils # (auto) 0.13 K/uL (0.00-0.50); Eosinophils % (auto) 0.9 %; Hematocrit (blood only) 36.5 % (42.0-52.0); Hemoglobin 11.3 g/dl (14.0-18.0); Immature Granulocytes # (auto) 0.15 K/uL (0.01-0.20); Immature Granulocytes % (auto) 1.1 %; Lymphocytes # (auto) 0.94 K/uL (1.20-3.40); Lymphocytes % (auto) 6.6 %; Mean Corpuscular Hemoglobin 27.9 pg (25.0-34.0); Mean Corpuscular Volume 90.1 fL (80.0-100.0); Mean Platelet Volume 11.2 fL (9.4-12.4); Monocytes # (auto) 1.64 K/uL (0.11-0.59); Monocytes % (auto) 11.5 %; Neutrophils # (auto) 11.36 K/uL (1.40-6.50); Neutrophils % (auto) 79.5 %; Platelet Count 225 K/uL (130-400); RDW Coefficient of Variation 14.4 % (11.5-14.5); Red Blood Count 4.05 M/uL (4.70-6.10); White Blood Count 14.28 K/ul (4.8-10.8)
[2024-03-12] MEDS: METOPROLOL TARTRATE 1 MG/ML VIAL IV STA ×2 (06:35→23:01)
[2024-03-12 06:49] LABS: BUN Creatinine Ratio 14.4 (10-20); Calcium 7.6 mg/dl (8.6-10.3); Creatinine Clr Calc Pharmacy 87.3 ml/min; Est GFR (African American) 58.9 ml/min; Est GFR (Non-African American) 50.8 ml/min; Potassium 4.7 mmol/L (3.5-5.1)
[2024-03-12 07:01] LABS: INR 2.5 (0.9-1.1); Prothrombin Time 24.7 Seconds (9.0-12.0)
--- NOTE | 2024-03-12 08:15 | Pharmacy Report ---
Pharmacy Glycemic Sign Off Nt - Date of Service March 12, 2024 - Assessment & Plan ASSESSMENT: * Patient's BSG's have all been <100 mg/dL x24 hours without any insulin thus far administered. * He is not on home diabetes meds. * He hs a very loose Novolog ACHS regimen ordered, which will likely still be appropriate if PO intake or BSG's increase. * Pharmacy will sign off now - Dr. Garza aware PLAN FOR INPATIENT GLYCEMIC CONTROL: No changes needed to current regimen. * Continue NovoLog per scale ACHS/Q6hrs while NPO * Goal range = 110 140 mg/dl * CF = 35 mg/dl/unit * CR = 1 unit for ever 15 g CHO consumed * Pharmacy is signing off of glycemic consult and will no longer be making adjustments to inpatient regimen. Please feel free to re-consult if needed. Thank you.
[2024-03-12] MEDS ORDERED: oxyCODONE HCL IR 5 MG TAB (IMMEDIATE RELEASE) PO PRN (09:29)
[2024-03-12] MEDS ORDERED: ONDANSETRON INJ 2 MG/ML 2 ML VIAL IV PRN (10:25)
--- NOTE | 2024-03-12 10:32 | Communication Note ---
Date of Service: March 12, 2024 Palliative Medicine Brief Note Consult received, reviewed and appreciated. Full consult note will follow. Patient was seen and examined earlier this morning. I met with him and his at bedside for 30-minute [id number] advance care planning discussion in addition to the consultation. He reports significant complaints of prolonged constipation, abdominal discomfort, bloating, distention, gas, flatulence, nausea, dry heaving/retching, as well as occasional pain that is in his upper abdomen to chest. They are aware of the nature of his advanced cancer diagnosis and wanted to discuss options for care disposition. We discussed the following options: Home with hospice, jail with rehab trial conversion to long-term care, placement in a retirement for long-term care/hospice. He is aware that his cancer is very advanced and potentially very aggressive. They are going to discuss options for disposition together as a family and make more of a formal decision tomorrow. We discussed that there is a always the potential in these types of situations for rapid decline/acute worsening and have agreed as a group that should this happen during the admission, we will immediately convert to comfort care. CODE STATUS was discussed and agreed on DNR/DNI. Additionally, he remains quite constipated with occasional abdominal spasmodic pain. I have added additional medications for bowel regimen including milk of magnesia, mineral oil enema, and added senna S tablets. I increased his IV Zofran to 8 mg every 6 as needed for his nausea. I have also added IV Dilaudid for breakthrough pain and have discontinued the oral oxycodone order. Thank you for allowing us to participate in the ongoing care of this patient. Please page with any additional concerns. Rosalinda Larsen DNP Director, Palliative Medicine
[2024-03-12] MEDS ORDERED: ondansetron HCL 8 MG in DEXTROSE 5% 50 ML IV PRN (10:33)
[2024-03-12] MEDS: DOCUSATE SODIUM/SENNA 50/8.6MG TAB PO SCH (11:46)
[2024-03-12] MEDS: PROMETHAZINE HCL 6.25 MG in SODIUM CHLORIDE 0.9% 50 ML IV PRN (14:30)
[2024-03-12] MEDS: MAGNESIUM HYDROXIDE SUSP 30 ML UDC PO PRN (14:39)
--- NOTE | 2024-03-12 15:04 | Hospitalist Progress Note ---
Date of Service March 12, 2024 Assessment & Plan (1) Syncope: (2) Severe sepsis: (3) Urinary tract infection: (4) Supratherapeutic INR: (5) NONI (acute kidney injury): Plan Candido Curry is a 64y/o M with PMHx of chronic atrial fibrillation anticoagulated on warfarin, T2DM, HTN, chronic HFpEF, ROHIT noncompliant with CPAP, morbid obesity and other problems listed below who presented to the ED for evaluation secondary to a syncopal event. Of note, patient was recently admitted 02/23-03/03 with the following principal diagnoses: suspected metastatic pancreatic cancer and liver mass. Patient underwent IR-guided liver biopsy on 03/02 and was supposed to follow-up with Dr. Gibbs over at the [facility] on day of the admission to discuss the biopsy results. However, the patient became diaphoretic in the waiting room and subsequently passed out. He was found to be hypotensive as well at the [facility] and was therefore sent over to the ED. Syncopal Episode Possible Severe Sepsis, Acute UTI Patient meets criteria for severe sepsis 2/2 presenting HR > 90bpm, WBC count > 12K, present source of infection and lactic acidosis. BP was 97/63 on presentation - likely cause of syncopal episode. Pt received 2.5L NSS in ED --> BP improved to 137/98 at time of admission. Leukocytosis present Elevated procal Head CT negative, CXR negative for acute disease process. CTAP w/ no acute infectious or inflammatory findings. Chest CTA negative for PE. UA concerning for possible UTI --> on IV cefepime 2g Q8H. Urine culture Gram neg bacilli follow results and adjust ABX regimen PRN. Continue empiric antibiotics will follow up on final Urine culture Supratherapeutic INR Chronic Atrial Fibrillation INR 5.8 at time of admission. EKG showing afib, troponin negative. INR improved Restart Coumadin from today Acute Kidney Injury (NONI) on CKID Cr 1.9 on admission (baseline Cr ~1.4). Urinalysis suggestive of Proteinuria Patient had proteinuria in the past as well; Nephrology on board;s/p fluid resusitation Chronic HFpEF Last echo done 11/12/22 - results significantly limited 2/2 body habitus. Repeat echo on March 10 showed EF of 60 to 65% show grossly normal LV chamber size, normal LV systolic function. Hypomagnesemia Mag 1.3 upon presentation. Received 1g IV mag in ED; will order additional 1g IV mag. on PO supplement Liver Mass,likely metatstatic Pancreatic CA Patient underwent IR-guided liver biopsy on 03/02. Admitting CTAP showing a large pancreatic tail mass and multifocal hepatic metastatic disease is similar to 02/24/2024 examination. Discussed biopsy result. Likely stage IV adenocarcinoma likely pancreatic adenocarcinoma. Overall poor prognosis. Hematology on board; palliative consulted to discuss further goals of care Patient discussed with hematology/oncology regarding the diagnosis; patient likely has stage IV pancreatic adenocarcinoma. He has poor performance status; which could make him more likely to have significant side effects from chemotherapy treatment. Patient to discuss with family to decide whether to pursue hospice. CODE STATUS changed to DNR/DNI as per patient wishes. HTN: Holding [employer] metoprolol succinate, Lasix and spironolactone for now 2/2 presenting hypotension Dyslipidemia: Can continue [employer] statin therapy. DVT Prophylaxis: warfarin Code Status: DNR/DNI PCP: Jamey Koch MD Disposition: Admit to PCU/Telemetry. Possible DC home on hospice care depending on family discussion. Time spent evaluating patient, direct bedside care, chart review, placing orders, interpretation of diagnostic studies, discussion with consultants, patient, and family members, as well as other required patient management activities is 50 minutes Please note the above document was generated using voice recognition software. It may contain grammatical, syntax or spelling errors. Any formal questions or concerns about the content, text or information contained within the body of this dictation should be directly addressed to the provider for clarification Admission and Anticipated Discharge Date Admission Date: March 10, 2024 Subjective Patient seen and examined at bedside. He reports abdominal pain and discomfort He reports dizziness/nauseous with any tries to sit up Review of Systems Review of Systems: All systems reviewed & are unremarkable except as noted in Subjective Physical Exam Physical Exam: Constitutional: Alert oriented x 3; not in distress. Morbidly obese. Respiratory: Bilateral vesicular breath sound Cardiovascular: RRR, no murmur, no edema Vessels: no JVD or carotid bruit Chest: normal inspection of chest Abdomen: Soft, nontender Musculoskeletal: no cyanosis or clubbing, extremities motor strength 5/5 Skin: no rashes, warm and dry normal turgor Neurologic: PERRL, EOMI, accommodation nl, no face palsy, no dysarthria CN's II- XI intact bilaterally and moves all extremities Psychiatric: A+Ox3, euthymic affect Results & Data Results & Data Vital Signs (Past 12 Hours) Vital Signs Temp Pulse Pulse Resp BP BP Pulse Ox 03/12/24 11:42 36.7 C 111 H 20 146/76 H 94 03/12/24 07:32 36.6 C 114 H 20 134/75 94 03/12/24 07:00 116 H 03/12/24 06:47 106 H 126/84 03/12/24 06:35 125 H 110/89 O2 Del Method 03/12/24 11:42 Room Air 03/12/24 07:32 Room Air 03/12/24 07:00 03/12/24 06:47 03/12/24 06:35 (1) Syncope Syncope type: unspecified Qualified Code(s): R55 - Syncope and collapse (3) Urinary tract infection Urinary tract infection type: site unspecified Hematuria presence: with hematuria Qualified Code(s): N39.0 - Urinary tract infection, site not specified; R31.9 - Hematuria, unspecified
--- NOTE | 2024-03-12 15:53 | Nephrology Progress Note ---
Date of Service March 12, 2024 Assessment & Plan (1) Worsening renal function: Plan: a year ago creatinine 1.1; then 1.3 last fall in wake of starting aldactone and possibly in setting of a stone. now improved to 1.5 after starting 1.7 for this hospital stay and other one earlier this month. some relative hypotension prior to presentation -- sbp in 90s on arrival. very symptomatic w/ position change, mary standing but w/ his body habitus not able to safely check orthostatics. he had IV contrast 03/10 on presentation, so renal function may worsen though I'm hopeful we'll avoid this. no bacteria on UA and denies recent abtx [employer] >> so not a UTI. 700 mg protienuria and microhematuria may relate to stones or other. chronicity of renal dysfunction unclear >> ? subacute?, chronic? evidence also of emerging liver dysfunction > INR, albumin issues. TTE suboptimal study/poor windows > but no screaming pericardial effusion or valvular issues, EF preserved. DDX>chronic interstitial nephritis ? related to PPI; cancer related renal dysfunction; ? ischemic ATN related to cardiac arrhythmia or sepsis -IVF order complete and no need to restart; he is so far 3.7L positive on the admission assuming I/O accurate -daily bmp -strict I/O -f/u pending blood cultures and focus/narrow/stop abtx >one urine cx growing GNR >> however NO bacteria on microscopy so not clear this is uti but defer to primary service >>doubt sepsis as his WBC have been chronically elevated >> diff is fairly abnormal >> low threshold for peripheral smear Admission and Anticipated Discharge Date Admission Date: March 10, 2024 Subjective palliative saw pt; aggressive CA dx better understood, under tx for constipation; code status full > DNR and considering d/c options. some intermittent abd pain L upper. still very dizzy sitting up Review of Systems 2 Review of Systems: All systems reviewed & are unremarkable except as noted in Subjective Physical Exam 2 Constitutional: well developed, well nourished, + morbidly obese and cooperative; no acute distress Eyes: EOM intact bilaterally ENMT: Ears: no external ear abnormality Nose: no external nose abnormality Mouth: + dry oral mucous membranes and + poor dentition Neck: no nuchal rigidity Respiratory: normal respiratory effort Auscultation: + diminished lung sounds Cardiovascular: Rate/Rhythm: + tachycardic and + irregularly irregular E xtremities: no edema Gastrointestinal (Abdomen): Inspection/Auscultation: normal bowel sounds P ercussion/Palpation: abdomen soft; abdomen nontender (except for LUQ TTP), no guarding and no fluid wave Musculoskeletal: Extremities: strength 5/5 throughout Skin: no rashes, warm and dry Psychiatric: Orientation: alert and oriented x 3 Results & Data Vital Signs (Past 12 Hours) Vital Signs Temp Pulse Pulse Resp BP BP Pulse Ox 03/12/24 11:42 36.7 C 111 H 20 146/76 H 94 03/12/24 07:32 36.6 C 114 H 20 134/75 94 03/12/24 07:00 116 H 03/12/24 06:47 106 H 126/84 03/12/24 06:35 125 H 110/89 O2 Del Method 03/12/24 11:42 Room Air 03/12/24 07:32 Room Air 03/12/24 07:00 03/12/24 06:47 03/12/24 06:35 Laboratory Results 03/12/24 05:56 03/12/24 05:56
--- NOTE | 2024-03-12 17:34 | Palliative Care Consultation ---
Date of Consultation March 12, 2024 Assessment & Plan (1) Constipation: Milk of magnesia unit dose ordered Senna S2 tabs p.o. twice daily ordered Mineral oil enema ordered x 1 Continue daily MiraLAX Maintain hydration and ambulate if possible. Constipation type: unspecified constipation type Qualified Code(s): K59.00 - Constipation, unspecified (2) Cancer related pain: Dilaudid 0.25 IV every 3 hours as needed ordered for cancer related pain (3) Nausea: IV Zofran 8 mg every 6 hours as needed ordered This does not provide sufficient relief, can consider the addition of Zyprexa Zydis ODT +/- Haldol Intensol solution 0.5-1 Mg p.o. every 4 hours as needed under the tongue for cancer related nausea. (4) Generalized weakness: (5) Pancreatic adenocarcinoma: (6) Palliative care by specialist: Discussed Palliative Medicine provides specialized medical care for patients with a serious illness. We offer a focus on quality of life through reduction of symptom burden/more control over their illness, for patients and their family. Palliative Medicine interventions can be given along with curative treatment. I specifically clarified we are not hospice, which is a visiting nurse service that focuses on care delivered at the very end of life. (7) Advanced care planning/counseling discussion: A 30-minute [id number] advance care planning discussion was held with and Mrs. Curry earlier this morning. We discussed his many concerns including the symptoms he would like some improvement being managed, CODE STATUS, poor prognosis, and the goals of care. He has a lot of symptoms we are going to try and manage. He elected no code. We discussed disposition options and they are going to further discuss as a family tonight. I am following up with them tomorrow morning at 0930; the options we discussed were dc to home with hospice, dc to SNF with rehab then LTC or dc to SNF for LTC/comfort if insurance allows. asked about inpatient hospice homes and I told her that sadly, we do not have those in the area. He would like some time to take it all in but has agreed he wants a comfort focused plan of care and does not want to pursue cancer directed therapy given its high toxicity. He would like to take tonight to speak further with family. Plan As above. Thank you for allowing us to participate in the ongoing care of this patient. Please page with any additional concerns. Rosalinda Larsen DNP Director, Palliative Medicine History of Present Illness Reason for Consultation: cancer sx mgt, goals, adv pancreatic ca Attending Physician: Rell Garza MD History of Present Illness Mr. 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 He is seen at the bedside together with his . He is presently admitted with syncope, severe sepsis, UTI, NONI and a supratherapeutic INR. He was recently admitted 02/23 through 03/03/2024 with a suspected pancreatic and liver mass. That time he underwent an IR guided liver biopsy on 03 02 where the pathology confirmed adenocarcinoma of the pancreas. He presented to cancer clinic for follow-up on 03/10/2024 and was noted to be diaphoretic and in distress in the waiting room. At that time he was urgently referred to the emergency department and this current admission. Pathology from her recent liver biopsy was consistent with pancreatic adeno CA versus a cholangiocarcinoma. His imaging demonstrates a metastatic pancreatic cancer with a large pancreatic tail mass. Overall, he reports a declining performance status for the past few weeks with increasing abdominal pain, bloating and distention. He has met with oncology and shares that he is aware that his prognosis overall is very poor and that there is no curative option. He was offered chemotherapy with single agent gemcitabine, gemcitabine Abraxane combination 04. . Given his poor performance status, it is unlikely he would be a candidate for the gemcitabine Abraxane combination or for FOLFIRINOX. Keytruda as an immunotherapy was discussed with him but he would need additional testing. He and his have been discussing the overall poor prognosis and limited mortality of this advanced pancreatic cancer. They are interested in discussing options that may focus more on his comfort and his quality of life. He complains of significant constipation, abdominal pain, bloating and distention. He does not use any sort of a bowel regimen. He states it has been at least 2 days since his last bowel movement. Often he is able to feel some pressure but has not been able to void. He states that in the past he has had intermittent rounds with constipation that sometimes is relieved with senna S. He has not taken any at this time. He also has significant nausea that is not well-controlled on the current 4 mg dose of IV Zofran. He reports an intermittent colicky type pain of the left upper quadrant and occasional anterior chest wall pain. He has a significant cardiac history. His comorbidities include chronic heart failure with a preserved ejection fraction, hypertension, type 2 diabetes, noncompliant with CPAP ROHIT, atrial fibrillation, anticoagulation with warfarin. Allergies Allergy/AdvReac Type Severity Reaction Status Date / Time No Known Allergies Allergy Mild Verified 03/10/24 13:28 Home Medications Medication Instructions Recorded Confirmed Type albuterol sulfate 90 mcg/actuation 2 puff inhalation QID PRN 11/11/22 03/10/24 History aerosol inhaler Shortness Of Breath and cough atorvastatin 40 mg tablet 40 mg PO QPM 11/11/22 03/10/24 History omeprazole 40 mg capsule,delayed 40 mg PO DAILYBB 11/11/22 03/10/24 History release furosemide 20 mg tablet (Lasix) 20 mg PO DAILY PRN edema #30 tabs 12/09/22 03/10/24 Rx spironolactone 25 mg tablet 12.5 mg (1/2 x 25 mg) PO QAM #30 12/09/22 03/10/24 Rx tabs tramadol 200 mg tablet,extended 200 mg PO HS 12/12/22 03/10/24 History release 24 hr allopurinol 100 mg tablet 100 mg PO QAM 02/24/24 03/10/24 History aspirin 81 mg chewable tablet 81 mg PO DAILY 02/24/24 03/10/24 History (Children's Aspirin) diclofenac sodium 1 % topical gel 2 g EXT TID PRN Pain 02/24/24 03/10/24 History (Voltaren Arthritis Pain) metoprolol succinate 50 mg 50 mg PO AMPM 02/24/24 03/10/24 History tablet,extended release 24 hr warfarin 5 mg tablet See Rx Instructions .Route .COMPLEX 02/24/24 03/10/24 History Patient History Medical History Chronic venous stasis Bacterial arthritis of both knees Surgical History H/O arthroscopic knee surgery Family History Other Heart disease Hypertension Social History Smoking Status: Never smoker Second Hand Exposure: No; Do You Dip or Chew Tobacco: No; Tobacco Cessation Education Requested by Patient: No Hx Alcohol Use: No Hx Substance Use: No Preferred Language: Urdu Communication Ability: Effective Sports Instructor Required: No Beliefs That Will Affect Care: None Current Living Situation: Spouse Feels Safe at Home: Yes Safety Concerns: Feels Safe At This Time Assistive Devices: Cane and Walker Review of Systems Review of Systems: All systems reviewed & are unremarkable except as noted in Subjective Physical Exam Physical Exam: Morbidly obese gentleman, side-lying in bed, cooperative with discussion and ex am. Bitemporal wasting noted. PERRLA and EOMIs. Neck is supple and there is no obvious stridor. Poor dentition. Respiratory effort is normal at rest but there is increased conversational dyspnea with prolonged discussion. Breath sounds overall are diminished. He is tachycardic with an irregularly irregular rhythm. Abdomen is distended, diffusely tender to palpation, bowel sounds present. Th ere is bloating and distention noted. There is no guarding. Strength is diminished throughout. Lower extremities with muscle wasting, vascular insufficiency changes and woody texture to the legs. He is awake alert and oriented x 3. He is pale and somewhat ashen in color. Results & Data Vital Signs (Past 12 Hours) Vital Signs Temp Pulse Pulse Resp BP BP Pulse Ox 03/12/24 16:38 36.9 C 115 H 20 120/82 96 03/12/24 11:42 36.7 C 111 H 20 146/76 H 94 03/12/24 07:32 36.6 C 114 H 20 134/75 94 03/12/24 07:00 116 H 03/12/24 06:47 106 H 126/84 03/12/24 06:35 125 H 110/89 O2 Del Method 03/12/24 16:38 Room Air 03/12/24 11:42 Room Air 03/12/24 07:32 Room Air 03/12/24 07:00 03/12/24 06:47 03/12/24 06:35 Laboratory Results 03/12/24 03/12/24 03/12/24 Range/Units 16:33 11:31 07:29 WBC (4.8-10.8) K/ul RBC (4.70-6.10) M/uL Hgb (14.0-18.0) g/dl POC Hgb (14.0-18.0) g/dl Hct (42.0-52.0) % POC Hct (42-52) % MCV (80.0-100.0) fL MCH (25.0-34.0) pg MCHC (32.0-36.0) g/dL RDW Std Deviation (36.4-46.3) fL RDW Coeff of Zoila (11.5-14.5) % Plt Count (130-400) K/uL MPV (9.4-12.4) fL Immature Gran % (Auto) % Neut % (Auto) % Lymph % (Auto) % Wirt % (Auto) % Eos % (Auto) % Baso % (Auto) % Neut # (Auto) (1.40-6.50) K/uL Lymph # (Auto) (1.20-3.40) K/uL Wirt # (Auto) (0.11-0.59) K/uL Eos # (Auto) (0.00-0.50) K/uL Baso # (Auto) (0.00-0.20) K/uL Immature Gran # (Auto) (0.01-0.20) K/uL Platelet Estimate (Normal) PT (9.0-12.0) Seconds INR (0.9-1.1) APTT (21-31) Seconds PTT Ratio VBG pH (7.36-7.41) VBG pCO2 (38-50) mmHg VBG pO2 mmHg VBG HCO3 mmol/L VBG O2 Saturation % VBG Base Excess mEq/L POC Sodium (135-144) mmol/L Sodium (136-145) mmol/L POC Potassium (3.3-5.0) mmol/L Potassium (3.5-5.1) mmol/L POC Chloride (101-112) mmol/L Chloride (98-107) mmol/L Carbon Dioxide (21-32) mmol/L POC Total CO2 (24-31) mmol/L Anion Gap (3-11) POC Anion Gap (16-25) mmol/L POC BUN (7-18) mg/dl BUN (6-23) mg/dl Creatinine (0.6-1.4) mg/dl POC Creatinine (0.6-1.3) mg/dl Est Cr Clr Drug Dosing ml/min Est GFR ( Amer) ml/min Est GFR (Non-Af Amer) ml/min BUN/Creatinine Ratio (10-20) Glucose (70-99(Fasting)) mg/dl POC Glucose 96 102 H 82 (70-99) mg/dl POC Glucose (other) (70-99) mg/dl Estimat Average Glucose mg/dl Hemoglobin A1c (4.5-5.6) % Lactate (0.4-2.0) mmol/L Calcium (8.6-10.3) mg/dl POC Ioniz Calcium Radha (1.12-1.32) mmol/l Phosphorus (2.5-4.9) mg/dl Magnesium (1.7-2.4) mg/dl Total Bilirubin (0.2-1.0) mg/dl Direct Bilirubin (0-0.2) mg/dl AST (13-39) U/L ALT (7-52) U/L Alkaline Phosphatase (34-104) U/L Troponin I High Sens (0-20) pg/ml Total Protein (6.0-8.3) gm/dl Albumin (3.4-5.0) gm/dl Globulin (2.5-4.0) gm/dl Albumin/Globulin Ratio (0.9-2) Procalcitonin (0-0.5) ng/ml TSH (0.300-4.500) uIu/ml Random Cortisol mcg/dl Cortisol AM Sample (6.2-22.6) mcg/dl Urine Color Urine Appearance (Clear) Urine pH (4.5-7.5) Ur Specific [place] (1.000-1.030) Urine Protein (Negative) Urine Glucose (UA) (Negative) Urine Ketones (Negative) Urine Blood (Negative) Urine Nitrite (Negative) Urine Bilirubin (Negative) Urine Urobilinogen (Negative) Ur Leukocyte Esterase (Negative) Urine WBC (Auto) (0-5) /hpf Urine RBC (Auto) (0-2) /hpf U Hyaline Cast (Auto) (0-2) /lpf U Epithel Cells (Auto) (0-2) /hpf Urine Bacteria (Auto) (None Seen) Urine Mucus (None Prsent) Ur Random Creatinine mg/dl U Random Total Protein (0-11.9) mg/dl Protein/Creatinin Ratio (0-0.2) Nasal Screen MRSA (PCR) (Negative) SARS-CoV-2 (PCR) (Negative) Influenza Type A (PCR) (Neg) Influenza Type B (PCR) (Neg) RSV (RT-PCR) (Neg) Blood Type Antibody Screen 03/12/24 03/11/24 03/11/24 Range/Units 05:56 Unknown 20:03 WBC 14.28 H (4.8-10.8) K/ul RBC 4.05 L (4.70-6.10) M/uL Hgb 11.3 L (14.0-18.0) g/dl POC Hgb (14.0-18.0) g/dl Hct 36.5 L (42.0-52.0) % POC Hct (42-52) % MCV 90.1 (80.0-100.0) fL MCH 27.9 (25.0-34.0) pg MCHC 31.0 L (32.0-36.0) g/dL RDW Std Deviation 47.0 H (36.4-46.3) fL RDW Coeff of Zoila 14.4 (11.5-14.5) % Plt Count 225 (130-400) K/uL MPV 11.2 (9.4-12.4) fL Immature Gran % (Auto) 1.1 % Neut % (Auto) 79.5 % Lymph % (Auto) 6.6 % Wirt % (Auto) 11.5 % Eos % (Auto) 0.9 % Baso % (Auto) 0.4 % Neut # (Auto) 11.36 H (1.40-6.50) K/uL Lymph # (Auto) 0.94 L (1.20-3.40) K/uL Wirt # (Auto) 1.64 H (0.11-0.59) K/uL Eos # (Auto) 0.13 (0.00-0.50) K/uL Baso # (Auto) 0.06 (0.00-0.20) K/uL Immature Gran # (Auto) 0.15 (0.01-0.20) K/uL Platelet Estimate (Normal) PT 24.7 H (9.0-12.0) Seconds INR 2.5 H (0.9-1.1) APTT (21-31) Seconds PTT Ratio VBG pH (7.36-7.41) VBG pCO2 (38-50) mmHg VBG pO2 mmHg VBG HCO3 mmol/L VBG O2 Saturation % VBG Base Excess mEq/L POC Sodium (135-144) mmol/L Sodium 135 L (136-145) mmol/L POC Potassium (3.3-5.0) mmol/L Potassium 4.7 (3.5-5.1) mmol/L POC Chloride (101-112) mmol/L Chloride 105 (98-107) mmol/L Carbon Dioxide 23 (21-32) mmol/L POC Total CO2 (24-31) mmol/L Anion Gap 7 (3-11) POC Anion Gap (16-25) mmol/L POC BUN (7-18) mg/dl BUN 21 (6-23) mg/dl Creatinine 1.46 H (0.6-1.4) mg/dl POC Creatinine (0.6-1.3) mg/dl Est Cr Clr Drug Dosing 87.3 ml/min Est GFR ( Amer) 58.9 ml/min Est GFR (Non-Af Amer) 50.8 ml/min BUN/Creatinine Ratio 14.4 (10-20) Glucose 94 (70-99(Fasting)) mg/dl POC Glucose 85 (70-99) mg/dl POC Glucose (other) (70-99) mg/dl Estimat Average Glucose mg/dl Hemoglobin A1c (4.5-5.6) % Lactate (0.4-2.0) mmol/L Calcium 7.6 L (8.6-10.3) mg/dl POC Ioniz Calcium Radha (1.12-1.32) mmol/l Phosphorus (2.5-4.9) mg/dl Magnesium (1.7-2.4) mg/dl Total Bilirubin (0.2-1.0) mg/dl Direct Bilirubin (0-0.2) mg/dl AST (13-39) U/L ALT (7-52) U/L Alkaline Phosphatase (34-104) U/L Troponin I High Sens (0-20) pg/ml Total Protein (6.0-8.3) gm/dl Albumin (3.4-5.0) gm/dl Globulin (2.5-4.0) gm/dl Albumin/Globulin Ratio (0.9-2) Procalcitonin (0-0.5) ng/ml TSH (0.300-4.500) uIu/ml Random Cortisol mcg/dl Cortisol AM Sample (6.2-22.6) mcg/dl Urine Color Yellow Urine Appearance Cloudy A (Clear) Urine pH 5.0 (4.5-7.5) Ur Specific [place] 1.019 (1.000-1.030) Urine Protein 1+ H (Negative) Urine Glucose (UA) Negative (Negative) Urine Ketones Negative (Negative) Urine Blood 3+ H (Negative) Urine Nitrite Negative (Negative) Urine Bilirubin Negative (Negative) Urine Urobilinogen Negative (Negative) Ur Leukocyte Esterase 2+ H (Negative) Urine WBC (Auto) >50 H (0-5) /hpf Urine RBC (Auto) >20 H (0-2) /hpf U Hyaline Cast (Auto) >20 H (0-2) /lpf U Epithel Cells (Auto) 0-2 (0-2) /hpf Urine Bacteria (Auto) None Seen (None Seen) Urine Mucus Present A (None Prsent) Ur Random Creatinine 57.6 mg/dl U Random Total Protein 38.8 H (0-11.9) mg/dl Protein/Creatinin Ratio 0.7 H (0-0.2) Nasal Screen MRSA (PCR) (Negative) SARS-CoV-2 (PCR) (Negative) Influenza Type A (PCR) (Neg) Influenza Type B (PCR) (Neg) RSV (RT-PCR) (Neg) Blood Type Antibody Screen 03/11/24 03/11/24 03/11/24 Range/Units 16:17 11:16 07:30 WBC 14.00 H (4.8-10.8) K/ul RBC 4.06 L (4.70-6.10) M/uL Hgb 11.2 L (14.0-18.0) g/dl POC Hgb (14.0-18.0) g/dl Hct 36.5 L (42.0-52.0) % POC Hct (42-52) % MCV 89.9 (80.0-100.0) fL MCH 27.6 (25.0-34.0) pg MCHC 30.7 L (32.0-36.0) g/dL RDW Std Deviation 45.0 (36.4-46.3) fL RDW Coeff of Zoila 13.9 (11.5-14.5) % Plt Count 251 D (130-400) K/uL MPV 11.1 (9.4-12.4) fL Immature Gran % (Auto) 0.8 % Neut % (Auto) 80.1 % Lymph % (Auto) 6.9 % Wirt % (Auto) 11.1 % Eos % (Auto) 0.7 % Baso % (Auto) 0.4 % Neut # (Auto) 11.21 H (1.40-6.50) K/uL Lymph # (Auto) 0.96 L (1.20-3.40) K/uL Wirt # (Auto) 1.56 H (0.11-0.59) K/uL Eos # (Auto) 0.10 (0.00-0.50) K/uL Baso # (Auto) 0.06 (0.00-0.20) K/uL Immature Gran # (Auto) 0.11 (0.01-0.20) K/uL Platelet Estimate Normal (Normal) PT 35.3 H (9.0-12.0) Seconds INR 3.6 H (0.9-1.1) APTT (21-31) Seconds PTT Ratio VBG pH (7.36-7.41) VBG pCO2 (38-50) mmHg VBG pO2 mmHg VBG HCO3 mmol/L VBG O2 Saturation % VBG Base Excess mEq/L POC Sodium (135-144) mmol/L Sodium 136 (136-145) mmol/L POC Potassium (3.3-5.0) mmol/L Potassium 4.5 (3.5-5.1) mmol/L POC Chloride (101-112) mmol/L Chloride 105 (98-107) mmol/L Carbon Dioxide 24 (21-32) mmol/L POC Total CO2 (24-31) mmol/L Anion Gap 7 (3-11) POC Anion Gap (16-25) mmol/L POC BUN (7-18) mg/dl BUN 25 H (6-23) mg/dl Creatinine 1.71 H (0.6-1.4) mg/dl POC Creatinine (0.6-1.3) mg/dl Est Cr Clr Drug Dosing 74.7 ml/min Est GFR ( Amer) 48.7 ml/min Est GFR (Non-Af Amer) 42.0 ml/min BUN/Creatinine Ratio 14.6 (10-20) Glucose 91 (70-99(Fasting)) mg/dl POC Glucose 95 77 (70-99) mg/dl POC Glucose (other) (70-99) mg/dl Estimat Average Glucose 146 mg/dl Hemoglobin A1c 6.7 H (4.5-5.6) % Lactate 1.2 (0.4-2.0) mmol/L Calcium 7.7 L (8.6-10.3) mg/dl POC Ioniz Calcium Radha (1.12-1.32) mmol/l Phosphorus 2.6 (2.5-4.9) mg/dl Magnesium 1.5 L (1.7-2.4) mg/dl Total Bilirubin 0.8 (0.2-1.0) mg/dl Direct Bilirubin (0-0.2) mg/dl AST 27 (13-39) U/L ALT 11 (7-52) U/L Alkaline Phosphatase 240 H (34-104) U/L Troponin I High Sens (0-20) pg/ml Total Protein 6.9 (6.0-8.3) gm/dl Albumin 2.2 L (3.4-5.0) gm/dl Globulin 4.7 H (2.5-4.0) gm/dl Albumin/Globulin Ratio 0.5 L (0.9-2) Procalcitonin 3.08 H (0-0.5) ng/ml TSH (0.300-4.500) uIu/ml Random Cortisol mcg/dl Cortisol AM Sample 18.75 (6.2-22.6) mcg/dl Urine Color Urine Appearance (Clear) Urine pH (4.5-7.5) Ur Specific [place] (1.000-1.030) Urine Protein (Negative) Urine Glucose (UA) (Negative) Urine Ketones (Negative) Urine Blood (Negative) Urine Nitrite (Negative) Urine Bilirubin (Negative) Urine Urobilinogen (Negative) Ur Leukocyte Esterase (Negative) Urine WBC (Auto) (0-5) /hpf Urine RBC (Auto) (0-2) /hpf U Hyaline Cast (Auto) (0-2) /lpf U Epithel Cells (Auto) (0-2) /hpf Urine Bacteria (Auto) (None Seen) Urine Mucus (None Prsent) Ur Random Creatinine mg/dl U Random Total Protein (0-11.9) mg/dl Protein/Creatinin Ratio (0-0.2) Nasal Screen MRSA (PCR) (Negative) SARS-CoV-2 (PCR) (Negative) Influenza Type A (PCR) (Neg) Influenza Type B (PCR) (Neg) RSV (RT-PCR) (Neg) Blood Type Antibody Screen 03/11/24 03/10/24 03/10/24 Range/Units 07:28 Unknown 20:16 WBC (4.8-10.8) K/ul RBC (4.70-6.10) M/uL Hgb (14.0-18.0) g/dl POC Hgb (14.0-18.0) g/dl Hct (42.0-52.0) % POC Hct (42-52) % MCV (80.0-100.0) fL MCH (25.0-34.0) pg MCHC (32.0-36.0) g/dL RDW Std Deviation (36.4-46.3) fL RDW Coeff of Zoila (11.5-14.5) % Plt Count (130-400) K/uL MPV (9.4-12.4) fL Immature Gran % (Auto) % Neut % (Auto) % Lymph % (Auto) % Wirt % (Auto) % Eos % (Auto) % Baso % (Auto) % Neut # (Auto) (1.40-6.50) K/uL Lymph # (Auto) (1.20-3.40) K/uL Wirt # (Auto) (0.11-0.59) K/uL Eos # (Auto) (0.00-0.50) K/uL Baso # (Auto) (0.00-0.20) K/uL Immature Gran # (Auto) (0.01-0.20) K/uL Platelet Estimate (Normal) PT (9.0-12.0) Seconds INR (0.9-1.1) APTT (21-31) Seconds PTT Ratio VBG pH (7.36-7.41) VBG pCO2 (38-50) mmHg VBG pO2 mmHg VBG HCO3 mmol/L VBG O2 Saturation % VBG Base Excess mEq/L POC Sodium (135-144) mmol/L Sodium (136-145) mmol/L POC Potassium (3.3-5.0) mmol/L Potassium (3.5-5.1) mmol/L POC Chloride (101-112) mmol/L Chloride (98-107) mmol/L Carbon Dioxide (21-32) mmol/L POC Total CO2 (24-31) mmol/L Anion Gap (3-11) POC Anion Gap (16-25) mmol/L POC BUN (7-18) mg/dl BUN (6-23) mg/dl Creatinine (0.6-1.4) mg/dl POC Creatinine (0.6-1.3) mg/dl Est Cr Clr Drug Dosing ml/min Est GFR ( Amer) ml/min Est GFR (Non-Af Amer) ml/min BUN/Creatinine Ratio (10-20) Glucose (70-99(Fasting)) mg/dl POC Glucose 91 89 (70-99) mg/dl POC Glucose (other) (70-99) mg/dl Estimat Average Glucose mg/dl Hemoglobin A1c (4.5-5.6) % Lactate (0.4-2.0) mmol/L Calcium (8.6-10.3) mg/dl POC Ioniz Calcium Radha (1.12-1.32) mmol/l Phosphorus (2.5-4.9) mg/dl Magnesium (1.7-2.4) mg/dl Total Bilirubin (0.2-1.0) mg/dl Direct Bilirubin (0-0.2) mg/dl AST (13-39) U/L ALT (7-52) U/L Alkaline Phosphatase (34-104) U/L Troponin I High Sens (0-20) pg/ml Total Protein (6.0-8.3) gm/dl Albumin (3.4-5.0) gm/dl Globulin (2.5-4.0) gm/dl Albumin/Globulin Ratio (0.9-2) Procalcitonin (0-0.5) ng/ml TSH (0.300-4.500) uIu/ml Random Cortisol mcg/dl Cortisol AM Sample (6.2-22.6) mcg/dl Urine Color Urine Appearance (Clear) Urine pH (4.5-7.5) Ur Specific [place] (1.000-1.030) Urine Protein (Negative) Urine Glucose (UA) (Negative) Urine Ketones (Negative) Urine Blood (Negative) Urine Nitrite (Negative) Urine Bilirubin (Negative) Urine Urobilinogen (Negative) Ur Leukocyte Esterase (Negative) Urine WBC (Auto) (0-5) /hpf Urine RBC (Auto) (0-2) /hpf U Hyaline Cast (Auto) (0-2) /lpf U Epithel Cells (Auto) (0-2) /hpf Urine Bacteria (Auto) (None Seen) Urine Mucus (None Prsent) Ur Random Creatinine mg/dl U Random Total Protein (0-11.9) mg/dl Protein/Creatinin Ratio (0-0.2) Nasal Screen MRSA (PCR) (Negative) SARS-CoV-2 (PCR) NEGATIVE (Negative) Influenza Type A (PCR) Negative (Neg) Influenza Type B (PCR) Negative (Neg) RSV (RT-PCR) Negative (Neg) Blood Type Antibody Screen 03/10/24 03/10/24 03/10/24 Range/Units 18:13 14:09 13:33 WBC (4.8-10.8) K/ul RBC (4.70-6.10) M/uL Hgb (14.0-18.0) g/dl POC Hgb (14.0-18.0) g/dl Hct (42.0-52.0) % POC Hct (42-52) % MCV (80.0-100.0) fL MCH (25.0-34.0) pg MCHC (32.0-36.0) g/dL RDW Std Deviation (36.4-46.3) fL RDW Coeff of Zoila (11.5-14.5) % Plt Count (130-400) K/uL MPV (9.4-12.4) fL Immature Gran % (Auto) % Neut % (Auto) % Lymph % (Auto) % Wirt % (Auto) % Eos % (Auto) % Baso % (Auto) % Neut # (Auto) (1.40-6.50) K/uL Lymph # (Auto) (1.20-3.40) K/uL Wirt # (Auto) (0.11-0.59) K/uL Eos # (Auto) (0.00-0.50) K/uL Baso # (Auto) (0.00-0.20) K/uL Immature Gran # (Auto) (0.01-0.20) K/uL Platelet Estimate (Normal) PT (9.0-12.0) Seconds INR (0.9-1.1) APTT (21-31) Seconds PTT Ratio VBG pH (7.36-7.41) VBG pCO2 (38-50) mmHg VBG pO2 mmHg VBG HCO3 mmol/L VBG O2 Saturation % VBG Base Excess mEq/L POC Sodium (135-144) mmol/L Sodium (136-145) mmol/L POC Potassium (3.3-5.0) mmol/L Potassium (3.5-5.1) mmol/L POC Chloride (101-112) mmol/L Chloride (98-107) mmol/L Carbon Dioxide (21-32) mmol/L POC Total CO2 (24-31) mmol/L Anion Gap (3-11) POC Anion Gap (16-25) mmol/L POC BUN (7-18) mg/dl BUN (6-23) mg/dl Creatinine (0.6-1.4) mg/dl POC Creatinine (0.6-1.3) mg/dl Est Cr Clr Drug Dosing ml/min Est GFR ( Amer) ml/min Est GFR (Non-Af Amer) ml/min BUN/Creatinine Ratio (10-20) Glucose (70-99(Fasting)) mg/dl POC Glucose (70-99) mg/dl POC Glucose (other) (70-99) mg/dl Estimat Average Glucose mg/dl Hemoglobin A1c (4.5-5.6) % Lactate 2.9 H* (0.4-2.0) mmol/L Calcium (8.6-10.3) mg/dl POC Ioniz Calcium Radha (1.12-1.32) mmol/l Phosphorus (2.5-4.9) mg/dl Magnesium 1.6 L (1.7-2.4) mg/dl Total Bilirubin (0.2-1.0) mg/dl Direct Bilirubin (0-0.2) mg/dl AST (13-39) U/L ALT (7-52) U/L Alkaline Phosphatase (34-104) U/L Troponin I High Sens (0-20) pg/ml Total Protein (6.0-8.3) gm/dl Albumin (3.4-5.0) gm/dl Globulin (2.5-4.0) gm/dl Albumin/Globulin Ratio (0.9-2) Procalcitonin (0-0.5) ng/ml TSH (0.300-4.500) uIu/ml Random Cortisol mcg/dl Cortisol AM Sample (6.2-22.6) mcg/dl Urine Color Urine Appearance (Clear) Urine pH (4.5-7.5) Ur Specific [place] (1.000-1.030) Urine Protein (Negative) Urine Glucose (UA) (Negative) Urine Ketones (Negative) Urine Blood (Negative) Urine Nitrite (Negative) Urine Bilirubin (Negative) Urine Urobilinogen (Negative) Ur Leukocyte Esterase (Negative) Urine WBC (Auto) (0-5) /hpf Urine RBC (Auto) (0-2) /hpf U Hyaline Cast (Auto) (0-2) /lpf U Epithel Cells (Auto) (0-2) /hpf Urine Bacteria (Auto) (None Seen) Urine Mucus (None Prsent) Ur Random Creatinine mg/dl U Random Total Protein (0-11.9) mg/dl Protein/Creatinin Ratio (0-0.2) Nasal Screen MRSA (PCR) Negative (Negative) SARS-CoV-2 (PCR) (Negative) Influenza Type A (PCR) (Neg) Influenza Type B (PCR) (Neg) RSV (RT-PCR) (Neg) Blood Type Antibody Screen 03/10/24 03/10/24 03/10/24 Range/Units 12:42 12:33 11:42 WBC (4.8-10.8) K/ul RBC (4.70-6.10) M/uL Hgb (14.0-18.0) g/dl POC Hgb 15.6 (14.0-18.0) g/dl Hct (42.0-52.0) % POC Hct 46 (42-52) % MCV (80.0-100.0) fL MCH (25.0-34.0) pg MCHC (32.0-36.0) g/dL RDW Std Deviation (36.4-46.3) fL RDW Coeff of Zoila (11.5-14.5) % Plt Count (130-400) K/uL MPV (9.4-12.4) fL Immature Gran % (Auto) % Neut % (Auto) % Lymph % (Auto) % Wirt % (Auto) % Eos % (Auto) % Baso % (Auto) % Neut # (Auto) (1.40-6.50) K/uL Lymph # (Auto) (1.20-3.40) K/uL Wirt # (Auto) (0.11-0.59) K/uL Eos # (Auto) (0.00-0.50) K/uL Baso # (Auto) (0.00-0.20) K/uL Immature Gran # (Auto) (0.01-0.20) K/uL Platelet Estimate (Normal) PT (9.0-12.0) Seconds INR (0.9-1.1) APTT (21-31) Seconds PTT Ratio VBG pH (7.36-7.41) VBG pCO2 (38-50) mmHg VBG pO2 mmHg VBG HCO3 mmol/L VBG O2 Saturation % VBG Base Excess mEq/L POC Sodium 136 (135-144) mmol/L Sodium (136-145) mmol/L POC Potassium 5.0 (3.3-5.0) mmol/L Potassium (3.5-5.1) mmol/L POC Chloride 103 (101-112) mmol/L Chloride (98-107) mmol/L Carbon Dioxide (21-32) mmol/L POC Total CO2 19 L (24-31) mmol/L Anion Gap (3-11) POC Anion Gap 21.0 (16-25) mmol/L POC BUN 22 H (7-18) mg/dl BUN (6-23) mg/dl Creatinine (0.6-1.4) mg/dl POC Creatinine 1.9 H (0.6-1.3) mg/dl Est Cr Clr Drug Dosing ml/min Est GFR ( Amer) ml/min Est GFR (Non-Af Amer) ml/min BUN/Creatinine Ratio (10-20) Glucose (70-99(Fasting)) mg/dl POC Glucose (70-99) mg/dl POC Glucose (other) 192 H (70-99) mg/dl Estimat Average Glucose mg/dl Hemoglobin A1c (4.5-5.6) % Lactate (0.4-2.0) mmol/L Calcium (8.6-10.3) mg/dl POC Ioniz Calcium Radha 1.02 L (1.12-1.32) mmol/l Phosphorus (2.5-4.9) mg/dl Magnesium (1.7-2.4) mg/dl Total Bilirubin (0.2-1.0) mg/dl Direct Bilirubin (0-0.2) mg/dl AST (13-39) U/L ALT (7-52) U/L Alkaline Phosphatase (34-104) U/L Troponin I High Sens (0-20) pg/ml Total Protein (6.0-8.3) gm/dl Albumin (3.4-5.0) gm/dl Globulin (2.5-4.0) gm/dl Albumin/Globulin Ratio (0.9-2) Procalcitonin (0-0.5) ng/ml TSH (0.300-4.500) uIu/ml Random Cortisol mcg/dl Cortisol AM Sample (6.2-22.6) mcg/dl Urine Color Dark Yellow Urine Appearance Turbid A (Clear) Urine pH 5.5 (4.5-7.5) Ur Specific [place] 1.039 H (1.000-1.030) Urine Protein 3+ H (Negative) Urine Glucose (UA) Negative (Negative) Urine Ketones Trace H (Negative) Urine Blood 3+ H (Negative) Urine Nitrite Negative (Negative) Urine Bilirubin 1+ H (Negative) Urine Urobilinogen Negative (Negative) Ur Leukocyte Esterase 1+ H (Negative) Urine WBC (Auto) 11-20 H (0-5) /hpf Urine RBC (Auto) >20 H (0-2) /hpf U Hyaline Cast (Auto) >20 H (0-2) /lpf U Epithel Cells (Auto) 11-20 H (0-2) /hpf Urine Bacteria (Auto) None Seen (None Seen) Urine Mucus Present A (None Prsent) Ur Random Creatinine mg/dl U Random Total Protein (0-11.9) mg/dl Protein/Creatinin Ratio (0-0.2) Nasal Screen MRSA (PCR) (Negative) SARS-CoV-2 (PCR) (Negative) Influenza Type A (PCR) (Neg) Influenza Type B (PCR) (Neg) RSV (RT-PCR) (Neg) Blood Type B Negative Antibody Screen NEGATIVE 03/10/24 03/10/24 Range/Units 11:30 11:29 WBC 19.43 H (4.8-10.8) K/ul RBC 4.83 (4.70-6.10) M/uL Hgb 13.4 L (14.0-18.0) g/dl POC Hgb (14.0-18.0) g/dl Hct 43.5 (42.0-52.0) % POC Hct (42-52) % MCV 90.1 (80.0-100.0) fL MCH 27.7 (25.0-34.0) pg MCHC 30.8 L (32.0-36.0) g/dL RDW Std Deviation 47.3 H (36.4-46.3) fL RDW Coeff of Zoila 14.5 (11.5-14.5) % Plt Count 522 H (130-400) K/uL MPV 11.4 (9.4-12.4) fL Immature Gran % (Auto) 1.9 % Neut % (Auto) 79.4 % Lymph % (Auto) 8.2 % Wirt % (Auto) 8.6 % Eos % (Auto) 1.2 % Baso % (Auto) 0.7 % Neut # (Auto) 15.42 H (1.40-6.50) K/uL Lymph # (Auto) 1.60 (1.20-3.40) K/uL Wirt # (Auto) 1.68 H (0.11-0.59) K/uL Eos # (Auto) 0.23 (0.00-0.50) K/uL Baso # (Auto) 0.14 (0.00-0.20) K/uL Immature Gran # (Auto) 0.36 H (0.01-0.20) K/uL Platelet Estimate (Normal) PT 54.0 H (9.0-12.0) Seconds INR 5.8 H* (0.9-1.1) APTT 50 H (21-31) Seconds PTT Ratio 1.9 VBG pH 7.36 (7.36-7.41) VBG pCO2 35 L (38-50) mmHg VBG pO2 61 mmHg VBG HCO3 20 mmol/L VBG O2 Saturation 91.4 % VBG Base Excess -4.9 mEq/L POC Sodium (135-144) mmol/L Sodium 134 L (136-145) mmol/L POC Potassium (3.3-5.0) mmol/L Potassium 5.0 (3.5-5.1) mmol/L POC Chloride (101-112) mmol/L Chloride 99 (98-107) mmol/L Carbon Dioxide 19 L (21-32) mmol/L POC Total CO2 (24-31) mmol/L Anion Gap 16 H (3-11) POC Anion Gap (16-25) mmol/L POC BUN (7-18) mg/dl BUN 24 H (6-23) mg/dl Creatinine 1.81 H (0.6-1.4) mg/dl POC Creatinine (0.6-1.3) mg/dl Est Cr Clr Drug Dosing 70.5 ml/min Est GFR ( Amer) 45.4 ml/min Est GFR (Non-Af Amer) 39.2 ml/min BUN/Creatinine Ratio 13.3 (10-20) Glucose 180 H (70-99(Fasting)) mg/dl POC Glucose (70-99) mg/dl POC Glucose (other) (70-99) mg/dl Estimat Average Glucose mg/dl Hemoglobin A1c (4.5-5.6) % Lactate 5.9 H* (0.4-2.0) mmol/L Calcium 8.5 L (8.6-10.3) mg/dl POC Ioniz Calcium Radha (1.12-1.32) mmol/l Phosphorus (2.5-4.9) mg/dl Magnesium 1.3 L (1.7-2.4) mg/dl Total Bilirubin 0.9 (0.2-1.0) mg/dl Direct Bilirubin 0.3 H (0-0.2) mg/dl AST 33 (13-39) U/L ALT 16 (7-52) U/L Alkaline Phosphatase 313 H (34-104) U/L Troponin I High Sens 7.4 (0-20) pg/ml Total Protein 8.5 H (6.0-8.3) gm/dl Albumin 2.8 L (3.4-5.0) gm/dl Globulin (2.5-4.0) gm/dl Albumin/Globulin Ratio (0.9-2) Procalcitonin 2.52 H (0-0.5) ng/ml TSH 3.273 (0.300-4.500) uIu/ml Random Cortisol 42.49 mcg/dl Cortisol AM Sample (6.2-22.6) mcg/dl Urine Color Urine Appearance (Clear) Urine pH (4.5-7.5) Ur Specific [place] (1.000-1.030) Urine Protein (Negative) Urine Glucose (UA) (Negative) Urine Ketones (Negative) Urine Blood (Negative) Urine Nitrite (Negative) Urine Bilirubin (Negative) Urine Urobilinogen (Negative) Ur Leukocyte Esterase (Negative) Urine WBC (Auto) (0-5) /hpf Urine RBC (Auto) (0-2) /hpf U Hyaline Cast (Auto) (0-2) /lpf U Epithel Cells (Auto) (0-2) /hpf Urine Bacteria (Auto) (None Seen) Urine Mucus (None Prsent) Ur Random Creatinine mg/dl U Random Total Protein (0-11.9) mg/dl Protein/Creatinin Ratio (0-0.2) Nasal Screen MRSA (PCR) (Negative) SARS-CoV-2 (PCR) (Negative) Influenza Type A (PCR) (Neg) Influenza Type B (PCR) (Neg) RSV (RT-PCR) (Neg) Blood Type Cancelled Antibody Screen Cancelled Diagnostic Findings Chest X-Ray 03/10/24 11:22 XR chest 1V portable CLINICAL HISTORY: Sepsis TECHNIQUE: Single frontal radiograph of the chest was obtained. Comparison: Comparison is made to chest radiograph 02/24/2024 FINDINGS: Exam is limited by underpenetration. Cardiomegaly is noted. The lungs are clear. No evidence of pleural effusion or pneumothorax. IMPRESSION: No acute chest disease. Cardiomegaly is noted. ACT 112: Negative or not required by law. Electronically signed by: James Nuñez M.D. 03/10/2024 11:54 AM Abdomen/Pelvis CT 03/10/24 11:24 CT SCAN OF THE ABDOMEN AND PELVIS WITH IV CONTRAST CLINICAL HISTORY: Upper abdominal pain. Hypotension COMPARISON STUDY: Abdominal CT dated 02/24/2024. TECHNIQUE: Following the IV administration of 120 cc of Optiray 320, CT scan of the abdomen and pelvis is performed from the lung bases to the proximal femora. Images are reviewed in the axial, sagittal, and coronal planes. IV contrast was administered without complication. A dose lowering technique was utilized adhering to the principles of ALARA. The examination is degraded by suboptimal patient positioning within the CT gantry. FINDINGS: Lung bases: The heart is top normal in size and without pericardial effusion. There are scattered calcified granulomas. Scarring/atelectasis is noted at the lung bases. No airspace consolidation or pleural effusion is identified. A 9 mm left lower lobe pulmonary nodule is seen on image #332. Liver: The contrast-enhanced liver is top normal in size and heterogeneous in attenuation. Again seen is evidence of extensive/multifocal hepatic metastatic disease. The largest right lobe lesion is seen on image #90 and measures up to 7.5 cm. There is no intrahepatic biliary ductal dilatation. The hepatic veins and portal veins are patent. Gallbladder: Gallstones/sludge is suspected. The gallbladder is distended, with no CT evidence of acute cholecystitis. Spleen: Normal in size and attenuation. Pancreas: There is a heterogeneous low-attenuation mass lesion seen in the pancreatic tail on image #133. This measures approximately 5 x 4 cm. The pancreatic head and proximal body are normal in appearance. The mass closely approximates and likely encases the splenic vein. Adrenal glands: Unremarkable. Kidneys: The contrast enhanced kidneys are normal in size and without hydronephrosis. The kidneys enhance symmetrically. There is a 2.3 cm calculus in the right renal pelvis seen on image #223. No ureteral stone is seen. There is a 1.8 cm cyst in the left upper pole. Abdominal vasculature: The abdominal aorta is normal in course and caliber noting mild atherosclerotic calcification. Bowel: There is moderate sigmoid diverticulosis without CT evidence of acute diverticulitis. No bowel obstruction is identified. Duodenal diverticula are noted. The appendix is normal appearance. Peritoneum: There is a small volume of perihepatic ascites as well as trace pelvic ascites. No intraperitoneal free air is seen. Lymphadenopathy: There are prominent upper abdominal lymph nodes. There is a micah hepatis measure up to 14 mm in short axis. A node below the diaphragmatic hiatus on image #114 measures 10 mm in length. Pelvic viscera: The bladder is decompressed and grossly unremarkable. The prostate gland is diminutive and heterogeneous. The seminal vesicles are normal as imaged. Skeletal structures: The skeletal structures are osteopenic. There is moderate lumbosacral spondylosis. No lytic or blastic lesions are seen. Advanced arthritic change is seen in the hips, left greater than right. IMPRESSION: 1. No acute infectious or inflammatory findings are identified in the abdomen or pelvis. 2. A large pancreatic tail mass and multifocal hepatic metastatic disease is similar to 02/24/2024 examination. Metastatic pancreatic adenocarcinoma is the diagnosis of exclusion. Correlate with the oncological history. 3. Small volume perihepatic and pelvic ascites. This is increased from previous. 4. Suspect gallstones/biliary sludge. There is no CT evidence of acute cholecystitis. 5. A 9 mm pathologically indeterminate pulmonary nodule is seen at the left lung base. 6. Right-sided nephrolithiasis. 7. Sigmoid diverticulosis without CT evidence of acute diverticulitis. 8. Additional findings as above. ACT 112: Negative or not required by law. Electronically signed by: Elbert Wen M.D. 03/10/2024 12:44 PM Chest CTA 03/10/24 11:24 CT angio chest PE protocol CLINICAL HISTORY: PE TECHNIQUE: Multidetector row helical CT of the chest was performed with angiographic protocol. Coronal and sagittal reformations were obtained. Coronal and sagittal MIPS were obtained from the axial data set and were submitted for review. Automated dose lowering techniques and/or adjustment according to patient size were utilized for this exam. CT DOSE: 3434.12 mGy.cm Comparison: Comparison is made to CT chest 02/24/2024 FINDINGS: Lungs and pleura: Pulmonary nodules are seen including a 4 mm nodule in the left upper lobe (series 4 image 173) and a 7 mm nodule in the left lower lobe (image 111). Heart and pericardium: There is cardiomegaly without evidence of pericardial effusion. Vessels: No evidence of pulmonary embolism. Mediastinum and seema: Unremarkable. Chest wall and lower neck: Unremarkable. Abdomen: Unremarkable. Bones: Degenerative changes in the thoracic spine. IMPRESSION: 1. No acute abnormality and in particular no evidence of pulmonary embolus. 2. Stable pulmonary nodules as above. ACT 112: Negative or not required by law. Electronically signed by: James Nuñez M.D. 03/10/2024 12:[address] 03/10/24 13:19 CT OF THE HEAD WITHOUT CONTRAST CLINICAL HISTORY: Syncopal episode. COMPARISON STUDY: No previous studies for comparison. CT DOSE: 1200.25 mGy.cm TECHNIQUE: Helical axial images of the head were obtained without IV contrast. Automated exposure control was utilized for the study. A dose lowering technique was utilized adhering to the principles of ALARA. FINDINGS: No acute intracranial hemorrhage is identified although sensitivity is mildly diminished given intravascular contrast from recent contrast-enhanced CT. The ventricular system is unremarkable. The basal cisterns are patent. No extra- axial collections are present. There are no findings to suggest acute dural sinus thrombosis or acute territorial infarct. No significant calvarial abnormalities are present. Visualized portions of the sinuses and mastoid air cells are clear. IMPRESSION: No acute intracranial findings. ACT 112: Negative or not required by law. Electronically signed by: Cj Anne M.D. 03/10/2024 2:03 PM PG Care Time/CCT Total # of Minutes Spent Total Time Spent with Patient: Total time spent is greater than 50% in coordination of care (as documented) at patient's floor/unit and/or counseling patient: I spent 95 minutes overall addressing this case: 20 min in medical data review/discussion with referring provider(s) and/or preparation for the visit 15 min in direct interaction with the patient/exam 30 min in Advance Care Planning/Goals of Care discussions as detailed above in note (must be >16min) 15 min in subsequent review and synthesis of assessment and plan 15 min communicating with other providers regarding the patient's case: Advanced Care Planning 96692 Advanced Care Planning 30 [place] [address] IN/OBS CONSULT LVL 4,60M (25 - SIGNIFICANT, SEPARATELY IDENTIFIABLE ) Patient Type New Medical Decision Making High Complexity Diagnoses Constipation, unspecified constipation type K59.00 Constipation type: unspecified constipation type Cancer related pain G89.3 Nausea R11.0 Generalized weakness R53.1 Pancreatic adenocarcinoma C25.9 Palliative care by specialist Z51.5 Advanced care planning/counseling discussion Z71.89 Additional Codes Advanced Care Planning - 15597 Advanced Care Planning 30 Min: 82296 Advanced Care Planning 30 Min ([id number])
[2024-03-12] MEDS: WARFARIN SOD 2.5 MG TAB PO SCH (17:41)
[2024-03-12] MEDS: MINERAL OIL ENEMA 133 ML BTL PR STA (17:41)
[2024-03-13] MEDS: METOPROLOL TARTRATE 1 MG/ML VIAL IV ONE (14:56)
[2024-03-13] MEDS ORDERED: HALOPERIDOL ORAL SOLN 2 MG/ML PO PRN (15:08)
[2024-03-13] MEDS ORDERED: OLANZapine ZYDIS 5 MG ORALLY DIS. TAB PO PRN (15:09)
[2024-03-13] MEDS: WARFARIN SOD 5 MG TAB PO SCH (16:29)
[2024-03-13] MEDS: WARFARIN SOD 2.5 MG TAB PO SCH (16:46)
[2024-03-13] MEDS: METOPROLOL SUCC 50MG EXT REL TAB PO SCH (20:09)
[2024-03-14 08:04] LABS: Prothrombin Time 20.7 Seconds (9.0-12.0)
[2024-03-14] MEDS ORDERED: ONDANSETRON ORAL SOLN 0.8 MG/1 ML PO PRN (10:05)
[2024-03-14] MEDS: PANTOprazole 40 MG TAB PO SCH (11:15)
--- NOTE | 2024-03-14 13:20 | Hospitalist Progress Note ---
Date of Service March 14, 2024 Assessment & Plan (1) Syncope: (2) Severe sepsis: (3) Urinary tract infection: (4) Supratherapeutic INR: (5) NONI (acute kidney injury): Plan Candido Curry is a 64y/o M with PMHx of chronic atrial fibrillation anticoagulated on warfarin, T2DM, HTN, chronic HFpEF, ROHIT noncompliant with CPAP, morbid obesity and other problems listed below who presented to the ED for evaluation secondary to a syncopal event. Of note, patient was recently admitted 02/23-03/03 with the following principal diagnoses: suspected metastatic pancreatic cancer and liver mass. Patient underwent IR-guided liver biopsy on 03/02 and was supposed to follow-up with Dr. Gibbs over at the [facility] center on day of the admission to discuss the biopsy results. However, the patient became diaphoretic in the waiting room and subsequently passed out. He was found to be hypotensive as well at the [facility] and was therefore sent over to the ED. Liver Mass,likely metatstatic Pancreatic CA Patient underwent IR-guided liver biopsy on 03/02. Admitting CTAP showing a large pancreatic tail mass and multifocal hepatic metastatic disease is similar to 02/24/2024 examination. Discussed biopsy result. Likely stage IV adenocarcinoma likely pancreatic nikia ocarcinoma. Overall poor prognosis. Hematology on board; palliative consulted to discuss further goals of care Patient discussed with hematology/oncology regarding the diagnosis; patient likely has stage IV pancreatic adenocarcinoma. He has poor performance status; which could make him more likely to have significant side effects from chemotherapy treatment. Patient and family discussed and decided on home hospice. Likely DC in next few days after arrangement of equipments at home Syncopal Episode, likely due to hypotension Possible Severe Sepsis, ruled out Acute UTI Patient meets criteria for severe sepsis 2/2 presenting HR > 90bpm, WBC count > 12K, present source of infection and lactic acidosis. BP was 97/63 on presentation - likely cause of syncopal episode. Pt received 2.5L NSS in ED --> BP improved to 137/98 at time of admission. Leukocytosis present Elevated procal Head CT negative, CXR negative for acute disease process. CTAP w/ no acute infectious or inflammatory findings. Chest CTA negative for PE. Urine culture grew gram-negative bacilli with 2000 CFU; DC all antibiotics. Monitor for fever Supratherapeutic INR Chronic Atrial Fibrillation INR 5.8 at time of admission. EKG showing afib, troponin negative. INR improved restarted on coumadin on metoprolol, continue Acute Kidney Injury (NONI) on CKID Cr 1.9 on admission (baseline Cr ~1.4). Urinalysis suggestive of Proteinuria Patient had proteinuria in the past as well; Nephrology on board;s/p fluid resusitation Chronic HFpEF Last echo done 11/12/22 - results significantly limited 2/2 body habitus. Repeat echo on March 10 showed EF of 60 to 65% show grossly normal LV chamber size, normal LV systolic function. Hypomagnesemia Mag 1.3 upon presentation. Received 1g IV mag in ED; will order additional 1g IV mag. on PO supplement HTN: on metoprolol succinate, Lasix and spironolactone for now 2/2 presenting hypotension Dyslipidemia: Can continue [employer] statin therapy. DVT Prophylaxis: warfarin Code Status: DNR/DNI PCP: Jamey Koch MD Disposition: Admit to PCU/Telemetry. DC home on hospice care in next few days after equipment are arranged at home. Time spent evaluating patient, direct bedside care, chart review, placing orders, interpretation of diagnostic studies, discussion with consultants, patient, and family members, as well as other required patient management activities is 50 minutes Please note the above document was generated using voice recognition software. It may contain grammatical, syntax or spelling errors. Any formal questions or concerns about the content, text or information contained within the body of this dictation should be directly addressed to the provider for clarification Admission and Anticipated Discharge Date Admission Date: March 10, 2024 Subjective Continues to report nausea; no episode of vomiting Telemetry shows improved ventricular rate in 90s Review of Systems Review of Systems: All systems reviewed & are unremarkable except as noted in Subjective Physical Exam Physical Exam: Constitutional: Alert oriented x 3; not in distress. Morbidly obese. Respiratory: Bilateral vesicular breath sound Cardiovascular: RRR, no murmur, no edema Vessels: no JVD or carotid bruit Chest: normal inspection of chest Abdomen: Soft, nontender Musculoskeletal: no cyanosis or clubbing, extremities motor strength 5/5 Skin: no rashes, warm and dry normal turgor Neurologic: PERRL, EOMI, accommodation nl, no face palsy, no dysarthria CN's II- XI intact bilaterally and moves all extremities Psychiatric: A+Ox3, euthymic affect Results & Data Results & Data Vital Signs (Past 12 Hours) Vital Signs Temp Pulse Resp BP Pulse Ox O2 Del Method 03/14/24 12:15 36.8 C 96 H 20 120/93 94 Room Air 03/14/24 08:15 36.9 C 103 H 19 99/71 L 94 Room Air 03/14/24 02:27 36.8 C 116 H 20 116/87 94 Room Air (1) Syncope Syncope type: unspecified Qualified Code(s): R55 - Syncope and collapse (3) Urinary tract infection Urinary tract infection type: site unspecified Hematuria presence: with hematuria Qualified Code(s): N39.0 - Urinary tract infection, site not specified; R31.9 - Hematuria, unspecified
[2024-03-14] MEDS: OLANZAPINE 2.5 MG TAB PO SCH (19:55)
[2024-03-15 07:42] LABS: INR 2.1 (0.9-1.1); Prothrombin Time 21.7 Seconds (9.0-12.0)
--- NOTE | 2024-03-15 13:14 | Hospitalist Progress Note ---
Date of Service March 15, 2024 Assessment & Plan (1) Syncope: (2) Severe sepsis: (3) Urinary tract infection: (4) Supratherapeutic INR: (5) NONI (acute kidney injury): Plan Candido Curry is a 64y/o M with PMHx of chronic atrial fibrillation anticoagulated on warfarin, T2DM, HTN, chronic HFpEF, ROHIT noncompliant with CPAP, morbid obesity and other problems listed below who presented to the ED for evaluation secondary to a syncopal event. Of note, patient was recently admitted 02/23-03/03 with the following principal diagnoses: suspected metastatic pancreatic cancer and liver mass. Patient underwent IR-guided liver biopsy on 03/02 and was supposed to follow-up with Dr. Gibbs over at the [facility] center on day of the admission to discuss the biopsy results. However, the patient became diaphoretic in the waiting room and subsequently passed out. He was found to be hypotensive as well at the [facility] and was therefore sent over to the ED. Liver Mass,likely metatstatic Pancreatic CA Patient underwent IR-guided liver biopsy on 03/02. Admitting CTAP showing a large pancreatic tail mass and multifocal hepatic metastatic disease is similar to 02/24/2024 examination. Discussed biopsy result. Likely stage IV adenocarcinoma likely pancreatic nikia ocarcinoma. Overall poor prognosis. Hematology on board; palliative consulted to discuss further goals of care Patient discussed with hematology/oncology regarding the diagnosis; patient likely has stage IV pancreatic adenocarcinoma. He has poor performance status; which could make him more likely to have significant side effects from chemotherapy treatment. Patient and family discussed and decided on home hospice. Likely DC in next few days after arrangement of equipments at home Syncopal Episode, likely due to hypotension Possible Severe Sepsis, ruled out Acute UTI- ruled out Patient met criteria for severe sepsis 2/2 presenting HR > 90bpm, WBC count > 12K, present source of infection and lactic acidosis. BP was 97/63 on presentation - likely cause of syncopal episode. Pt received 2.5L NSS in ED --> BP improved to 137/98 at time of admission. Leukocytosis present Elevated procal Head CT negative, CXR negative for acute disease process. CTAP w/ no acute infectious or inflammatory findings. Chest CTA negative for PE. Urine culture grew gram-negative bacilli with 2000 CFU; DC all antibiotics. Monitor for fever Supratherapeutic INR Chronic Atrial Fibrillation INR 5.8 at time of admission. EKG showing afib, troponin negative. INR improved restarted on coumadin on metoprolol, continue Acute Kidney Injury (NONI) on CKID Cr 1.9 on admission (baseline Cr ~1.4). Urinalysis suggestive of Proteinuria Patient had proteinuria in the past as well; Nephrology on board;s/p fluid resusitation Chronic HFpEF Last echo done 11/12/22 - results significantly limited 2/2 body habitus. Repeat echo on March 10 showed EF of 60 to 65% show grossly normal LV chamber size, normal LV systolic function. Hypomagnesemia Mag 1.3 upon presentation. on PO supplement HTN: on metoprolol succinate, Lasix and spironolactone for now 2/2 presenting hypotension Dyslipidemia: Can continue [employer] statin therapy. DVT Prophylaxis: warfarin Code Status: DNR/DNI PCP: Jamey Koch MD Disposition: Admit to PCU/Telemetry. DC home on hospice care in next few days after equipment are arranged at home. Time spent evaluating patient, direct bedside care, chart review, placing orders, interpretation of diagnostic studies, discussion with consultants, patient, and family members, as well as other required patient management activities is 50 minutes Please note the above document was generated using voice recognition software. It may contain grammatical, syntax or spelling errors. Any formal questions or concerns about the content, text or information contained within the body of this dictation should be directly addressed to the provider for clarification Admission and Anticipated Discharge Date Admission Date: March 10, 2024 Subjective Patient seen and examined at bedside. Comfortable; not in distress. Denies fever, chills, chest pain, shortness of breath, abdominal pain or urinary symptoms. No significant overnight events Review of Systems Review of Systems: All systems reviewed & are unremarkable except as noted in Subjective Physical Exam Physical Exam: Constitutional: Alert oriented x 3; not in distress. Morbidly obese. Respiratory: Bilateral vesicular breath sound Cardiovascular: RRR, no murmur, no edema Vessels: no JVD or carotid bruit Chest: normal inspection of chest Abdomen: Soft, nontender Musculoskeletal: no cyanosis or clubbing, extremities motor strength 5/5 Skin: no rashes, warm and dry normal turgor Neurologic: PERRL, EOMI, accommodation nl, no face palsy, no dysarthria CN's II- XI intact bilaterally and moves all extremities Psychiatric: A+Ox3, euthymic affect Results & Data Results & Data Vital Signs (Past 12 Hours) Vital Signs Temp Pulse Pulse Resp BP Pulse Ox O2 Del Method 03/15/24 12:02 36.8 C 93 H 20 104/71 94 Room Air 03/15/24 08:09 98 H 03/15/24 07:56 36.7 C 112 H 18 111/62 94 Room Air 03/15/24 03:26 36.8 C 103 H 19 113/71 95 Room Air (1) Syncope Syncope type: unspecified Qualified Code(s): R55 - Syncope and collapse (3) Urinary tract infection Urinary tract infection type: site unspecified Hematuria presence: with hematuria Qualified Code(s): N39.0 - Urinary tract infection, site not specified; R31.9 - Hematuria, unspecified
[2024-03-15] MEDS: OLANZapine 5 MG TABLET PO SCH (20:14)
[2024-03-16 06:40] LABS: INR 2.3 (0.9-1.1); Prothrombin Time 23.6 Seconds (9.0-12.0)
--- NOTE | 2024-03-16 12:52 | Hospitalist Progress Note ---
Date of Service March 16, 2024 Assessment & Plan (1) Syncope: (2) Severe sepsis: (3) Urinary tract infection: (4) Supratherapeutic INR: (5) NONI (acute kidney injury): Plan Candido Curry is a 64y/o M with PMHx of chronic atrial fibrillation anticoagulated on warfarin, T2DM, HTN, chronic HFpEF, ROHIT noncompliant with CPAP, morbid obesity and other problems listed below who presented to the ED for evaluation secondary to a syncopal event. Of note, patient was recently admitted 02/23-03/03 with the following principal diagnoses: suspected metastatic pancreatic cancer and liver mass. Patient underwent IR-guided liver biopsy on 03/02 and was supposed to follow-up with Dr. Gibbs over at the [facility] on day of the admission to discuss the biopsy results. However, the patient became diaphoretic in the waiting room and subsequently passed out. He was found to be hypotensive as well at the [facility] and was therefore sent over to the ED. Liver Mass,likely metatstatic Pancreatic CA Patient underwent IR-guided liver biopsy on 03/02. Admitting CTAP showing a large pancreatic tail mass and multifocal hepatic metastatic disease is similar to 02/24/2024 examination. Discussed biopsy result. Likely stage IV adenocarcinoma likely pancreatic nikia ocarcinoma. Overall poor prognosis. Hematology on board; palliative consulted to discuss further goals of care Patient discussed with hematology/oncology regarding the diagnosis; patient likely has stage IV pancreatic adenocarcinoma. He has poor performance status; which could make him more likely to have significant side effects from chemotherapy treatment. Patient and family discussed and decided on home hospice. Started on Zyprexa 5 mg at night for nausea; improvement of symptoms Likely DC in next few days after arrangement of equipment at home Syncopal Episode, likely due to hypotension Possible Severe Sepsis, ruled out Acute UTI- ruled out Patient met criteria for severe sepsis 2/2 presenting HR > 90bpm, WBC count > 12K, present source of infection and lactic acidosis. BP was 97/63 on presentation - likely cause of syncopal episode. Pt received 2.5L NSS in ED --> BP improved to 137/98 at time of admission. Leukocytosis present Elevated procal Head CT negative, CXR negative for acute disease process. CTAP w/ no acute infectious or inflammatory findings. Chest CTA negative for PE. Urine culture grew gram-negative bacilli with 2000 CFU; DC all antibiotics. Monitor for fever Supratherapeutic INR Chronic Atrial Fibrillation INR 5.8 at time of admission. EKG showing afib, troponin negative. INR improved restarted on coumadin on metoprolol, continue Acute Kidney Injury (NONI) on CKID Cr 1.9 on admission (baseline Cr ~1.4). Urinalysis suggestive of Proteinuria Patient had proteinuria in the past as well; Nephrology on board;s/p fluid resusitation Chronic HFpEF Last echo done 11/12/22 - results significantly limited 2/2 body habitus. Repeat echo on March 10 showed EF of 60 to 65% show grossly normal LV chamber size, normal LV systolic function. Hypomagnesemia Mag 1.3 upon presentation. on PO supplement HTN: on metoprolol succinate, Lasix and spironolactone for now 2/2 presenting hypotension Dyslipidemia: Can continue BREAKFAST HOSTESS statin therapy. DVT Prophylaxis: warfarin Code Status: DNR/DNI PCP: Jamey Koch MD Disposition: Admit to PCU/Telemetry. DC home on hospice care in next few days after equipment are arranged at home. Please note the above document was generated using voice recognition software. It may contain grammatical, syntax or spelling errors. Any formal questions or concerns about the content, text or information contained within the body of this dictation should be directly addressed to the provider for clarification Admission and Anticipated Discharge Date Admission Date: March 10, 2024 Subjective Seen and examined at bedside. He reports that he is feeling much better today. Nausea has improved Able to work with PT OT as well. Review of Systems Review of Systems: All systems reviewed & are unremarkable except as noted in Subjective Physical Exam Physical Exam: Constitutional: Alert oriented x 3; not in distress. Morbidly obese. Respiratory: Bilateral vesicular breath sound Cardiovascular: RRR, no murmur, no edema Vessels: no JVD or carotid bruit Chest: normal inspection of chest Abdomen: Soft, nontender Musculoskeletal: no cyanosis or clubbing, extremities motor strength 5/5 Skin: no rashes, warm and dry normal turgor Neurologic: PERRL, EOMI, accommodation nl, no face palsy, no dysarthria CN's II- XI intact bilaterally and moves all extremities Psychiatric: A+Ox3, euthymic affect Results & Data Results & Data Vital Signs (Past 12 Hours) Vital Signs Temp Pulse Resp BP Pulse Ox O2 Del Method 03/16/24 12:02 98 H 25 H 110/74 92 Room Air 03/16/24 08:16 36.8 C 103 H 22 122/78 95 Room Air 03/16/24 03:31 36.8 C 106 H 18 119/81 95 Room Air (1) Syncope Syncope type: unspecified Qualified Code(s): R55 - Syncope and collapse (3) Urinary tract infection Urinary tract infection type: site unspecified Hematuria presence: with hematuria Qualified Code(s): N39.0 - Urinary tract infection, site not specified; R31.9 - Hematuria, unspecified
[2024-03-17 06:36] LABS: Basophils # (auto) 0.09 K/uL (0.00-0.20); Basophils % (auto) 0.5 %; Eosinophils # (auto) 0.22 K/uL (0.00-0.50); Eosinophils % (auto) 1.3 %; Hematocrit (blood only) 38.2 % (42.0-52.0); Hemoglobin 11.9 g/dl (14.0-18.0); Immature Granulocytes # (auto) 0.23 K/uL (0.01-0.20); Immature Granulocytes % (auto) 1.3 %; Lymphocytes # (auto) 1.22 K/uL (1.20-3.40); Lymphocytes % (auto) 7.1 %; Mean Corpuscular Hgb Conc 31.2 g/dL (32.0-36.0); Mean Corpuscular Volume 89.9 fL (80.0-100.0); Monocytes # (auto) 1.95 K/uL (0.11-0.59); Monocytes % (auto) 11.3 %; Neutrophils # (auto) 13.51 K/uL (1.40-6.50); Neutrophils % (auto) 78.5 %; Platelet Count 267 K/uL (130-400); RDW Coefficient of Variation 14.6 % (11.5-14.5); RDW Standard Deviation 47.3 fL (36.4-46.3); Red Blood Count 4.25 M/uL (4.70-6.10); White Blood Count 17.22 K/ul (4.8-10.8)
[2024-03-17 06:48] LABS: BUN Creatinine Ratio 15.9 (10-20); Calcium 8.3 mg/dl (8.6-10.3); Creatinine Clr Calc Pharmacy 90.3 ml/min; Est GFR (African American) 63.1 ml/min; Est GFR (Non-African American) 54.4 ml/min; Potassium 5.4 mmol/L (3.5-5.1)
[2024-03-17] MEDS: HYDROmorphone INJ 0.5 MG/0.5 ML SYR IV PRN (08:46)
--- NOTE | 2024-03-17 08:50 | Discharge Summary ---
Date of Service March 17, 2024 Admission HPI Per Admitting Provider Candido Curry is a 64y/o M with PMHx of chronic atrial fibrillation anticoagulated on warfarin, T2DM, HTN, chronic HFpEF, ROHIT noncompliant with CPAP, morbid obesity and other problems listed below who presented to the ED for evaluation secondary to a syncopal event. History obtained from patient, + daughter at bedside and associated chart review. Of note, patient was recently admitted 02/23-03/03 with the following principal diagnoses: suspected metastatic pancreatic cancer and liver mass. Patient underwent IR-guided liver biopsy on 03/02 and was supposed to follow-up with Dr. Gibbs over at the [facility] today to discuss the biopsy results. However, the patient became diaphoretic in the waiting room and subsequently passed out. He was found to be hypotensive as well at the [facility] and was therefore sent over to the ED. Patient's states that he has been feeling dizzy and nauseous for the past couple of days. He hasn't been eating or drinking well either; denies any recent fevers or chills. No episodes of vomiting or recent falls note. Patient denies any rectal bleeding, hematuria, abdominal pain or history of seizures. Admission Exam Per Admitting Provider VS noted and reviewed oriented x 3, not in distress, speaks in sentences with no effort nor accessory muscle use (+) dry oral mucosa normal rate, regular rhythm, no murmurs clear breath sounds bilaterally non distended, soft, nontender pretty cath: (+) pink tinged urine no bipedal edema, erythema, warmth no neuro deficits Principal Diagnosis Metastatic Pancreatic CA Discharge Exam Constitutional: Alert oriented x 3; not in distress. Morbidly obese. Respiratory: Bilateral vesicular breath sound Cardiovascular: RRR, no murmur, no edema Vessels: no JVD or carotid bruit Chest: normal inspection of chest Abdomen: Soft, nontender Musculoskeletal: no cyanosis or clubbing, extremities motor strength 5/5 Skin: no rashes, warm and dry normal turgor Neurologic: PERRL, EOMI, accommodation nl, no face palsy, no dysarthria CN's II- XI intact bilaterally and moves all extremities Psychiatric: A+Ox3, euthymic affect Discharge Data Allergies Allergy/AdvReac Type Severity Reaction Status Date / Time No Known Allergies Allergy Mild Verified 03/10/24 13:28 Consultations 03/10/24 13:16 ED Decision to Admit Stat 03/10/24 13:46 Consult Oncology Routine 03/11/24 08:06 Consult Nephrology Routine 03/11/24 13:56 Consult Palliative Care Routine Ordered Studies 03/10/24 11:24 CT abd pelvis IV con only Stat CT angio chest PE protocol Stat 03/10/24 13:19 CT head/brain wo con Stat Hospital Course (1) Syncope: (2) Severe sepsis: (3) Urinary tract infection: (4) Supratherapeutic INR: (5) NONI (acute kidney injury): Janay Curry is a 64y/o M with PMHx of chronic atrial fibrillation anticoagulated on warfarin, T2DM, HTN, chronic HFpEF, ROHIT noncompliant with CPAP, morbid obesity and other problems listed below who presented to the ED for evaluation secondary to a syncopal event. Of note, patient was recently admitted 02/23-03/03 with the following principal diagnoses: suspected metastatic pancreatic cancer and liver mass. Patient underwent IR-guided liver biopsy on 03/02 and was supposed to follow-up with Dr. Gibbs over at the [facility] on day of the admission to discuss the biopsy results. However, the patient became diaphoretic in the waiting room and subsequently passed out. He was found to be hypotensive as well at the [facility] and was therefore sent over to the ED. Liver Mass,likely metatstatic Pancreatic CA Patient underwent IR-guided liver biopsy on 03/02. Admitting CTAP showing a large pancreatic tail mass and multifocal hepatic metastatic disease is similar to 02/24/2024 examination. Discussed biopsy result. Likely stage IV adenocarcinoma likely pancreatic adenocarcinoma. Overall poor prognosis. Hematology on board; palliative consulted to discuss further goals of care Patient discussed with hematology/oncology regarding the diagnosis; patient likely has stage IV pancreatic adenocarcinoma. He has poor performance status; which could make him more likely to have significant side effects from chemotherapy treatment. Patient and family discussed and decided on home hospice. Started on Zyprexa 5 mg at night for nausea; improvement of symptoms Discharge home with home hospice Syncopal Episode, likely due to hypotension Possible Severe Sepsis, ruled out Acute UTI- ruled out Patient met criteria for severe sepsis 2/2 presenting HR > 90bpm, WBC count > 12K, present source of infection and lactic acidosis. BP was 97/63 on presentation - likely cause of syncopal episode. Pt received 2.5L NSS in ED --> BP improved to 137/98 at time of admission. Leukocytosis present Elevated procal Head CT negative, CXR negative for acute disease process. CTAP w/ no acute infectious or inflammatory findings. Chest CTA negative for PE. Urine culture grew gram-negative bacilli with 2000 CFU; DC all antibiotics. No episodes of fever. Supratherapeutic INR Chronic Atrial Fibrillation INR 5.8 at time of admission. EKG showing afib, troponin negative. INR improved restarted on coumadin on metoprolol, continue Coumadin dose decreased to 2.5mg daily. Follow up with coagulation clinic, Discussed with patient Acute Kidney Injury (NONI) on CKID Cr 1.9 on admission (baseline Cr ~1.4). Urinalysis suggestive of Proteinuria Patient had proteinuria in the past as well; Nephrology on board;s/p fluid resusitation Creatinine at baseline at DC Please note the above document was generated using voice recognition software. It may contain grammatical, syntax or spelling errors. Any formal questions or concerns about the content, text or information contained within the body of this dictation should be directly addressed to the provider for clarification Total Time Total Time Spent Total Time Spent (In Minutes): 45 Total Time Includes: Examination of the Patient, Discharge Planning, Medication Reconciliation, Communication With Other Providers and Other Discharge Plan Discharge Items Patient Disposition: Hospice - Home Reason For Visit: SYNCOPE, SEPSIS Discharge Diagnosis: Metastatic Pancreatic CA Activity: Resume your previous activity Non-emergency contact: Primary Care Provider Call non-emergency contact if: you have any medication questions and your symptoms worsen Follow-up/Referrals: Jamey Koch MD [Primary Care Provider] - Diet: Regular Addtl Attending Provider Instructions: You are discharged home under hospice care. For Nausea/Vomiting; you are prescribed Zyprexa 5mg to be taken at bedtime as well as ondansetron 4mg as needed. Stop taking spironolactone. Dose of Coumadin is decreased to 2.5mg daily. please follow up with anticoagulation clinic. Pending Studies at Discharge: No Stand-Alone Forms: My [facility] [employer] Medications and DC Order Prescriptions: New olanzapine 5 mg Tablet 5 mg PO HS Qty: 60 0RF warfarin [Jantoven] 2.5 mg Tablet 2.5 mg PO DAILY@1600 Qty: 30 0RF magnesium oxide 400 mg (241.3 mg magnesium) Tablet 400 mg PO BID Qty: 60 0RF ondansetron 4 mg tablet,disintegrating 4 mg PO TID PRN (Reason: nausea and vomiting) 10 Days Qty: 30 0RF Continued tramadol 200 mg tablet extended release 24 hr 200 mg PO HS atorvastatin 40 mg tablet 40 mg PO QPM albuterol sulfate 90 mcg/actuation HFA aerosol inhaler 2 puff INHALATION QID PRN (Reason: Shortness Of Breath and cough) omeprazole 40 mg capsule,delayed release(DR/EC) 40 mg PO DAILYBB furosemide [Lasix] 20 mg tablet 20 mg PO DAILY PRN (Reason: edema) Qty: 30 0RF allopurinol 100 mg tablet 100 mg PO QAM metoprolol succinate 50 mg tablet extended release 24 hr 50 mg PO AMPM diclofenac sodium [Voltaren Arthritis Pain] 1 % gel 2 g EXT TID PRN (Reason: Pain) aspirin [Children's Aspirin] 81 mg Tablet,Chewable 81 mg PO DAILY Rx Instructions: take with food Discontinued spironolactone 25 mg Tablet 12.5 mg PO QAM Qty: 30 0RF warfarin 5 mg tablet See Rx Instructions .ROUTE .COMPLEX Rx Instructions: Most recent directions as of 02/24/24 are 2.5mg Mon/Fri and 5mg all other days. However, spouse and family are unsure if that has been changed recently or not. And they don't remember which dose he took this morning. Discharge Orders: Discharge Order (Routine); Ordered 03/17/24 Ordered By: Rell Nj/Other Patient Handouts: Managing Type 2 Diabetes Admission Data Admit Date/Time: 03/10/24 13:46 Attending Provider: Rell Garza Admit Provider: Mark Angeles Primary Care Provider: Jamey Koch Other Providers: Sonal Gibbs; Mark Angeles; Sarai Gleason; Jesús Elliott; Genesis Hubbard; Ayden Reynolds; Kellen Rivera; Silvia Larsen Other Interventions: Discharge Summary Assessment (RN) Last Done: 03/17/24 10:00
[2024-03-17] MEDS: SODIUM ZIRCONIUM CYCLOSILICATE 10 GM PACKET PO SCH (11:55)
== END 2024-03-17 12:58 | disposition hospice, home (50) | DRG 871 ==
LOC: ED 11:08 → 2E 15:23 → SUATTDRO 15:38 → 2E 15:38